=== PATIENT | female | born 1935 | race Caucasian/White ===

== ENCOUNTER → 2016-11-26 | Outpatient (CLI) | payer BC ==
[~2016-11-26] MED LIST: ATOR-22 PO; BENZ100C84 PO; CLTP PO; DLN100 PO; IBUP-1050 PO; LEVE500T PO; LEVO50TA PO; METF-384 PO; MULT-506 PO; NAPR-201 PO; PRLSR20 PO; SPCCR30 TOP
[2016-11-26 12:08] LABS: BASO % 0.5 %; BASO ABS # 0.03 K/uL (0-0.2); COMPLETE YES; EOS % 1.7 %; HEMATOCRIT 34.7 % (37-47); IG% 0.3 %; LYMPH % 36.3 %; LYMPH ABS # 2.39 K/uL (1.2-3.4); MEAN CELL VOLUME 98.3 fL (80-100); MEAN CORPUSCULAR HGB CONC 32.6 g/dl (32-36); MEAN PLATELET VOLUME 9.6 fL (7.4-10.4); MONO % 7.4 %; NEUT % 53.8 %; PLATELET COUNT 228 K/uL (130-400); RED BLOOD COUNT 3.53 M/uL (4.2-5.4); WHITE BLOOD COUNT 6.58 K/uL (4.8-10.8)
[2016-11-26 12:28] LABS: ESTIMATED AVERAGE GLUCOSE 128 mg/dl; HA1C FLAG Normal (Normal)
[2016-11-26 12:38] LABS: BLOOD UREA NITROGEN 16 mg/dl (7-18); BUN/CREATININE RATIO 24.4 (10-20); CALCIUM 8.8 mg/dl (8.5-10.1); CARBON DIOXIDE 28 mmol/L (21-32); CHLORIDE 107 mmol/L (98-107); CREATININE 0.65 mg/dl (0.60-1.20); GLUCOSE 110 mg/dl (70-99); POTASSIUM 4.6 mmol/L (3.5-5.1); SODIUM 141 mmol/L (136-145)
[2016-11-26 12:49] LABS: FERRITIN 45.1 ng/ml (8.0-388.0); THYROID STIMULATING HORMONE 0.497 uIu/ml (0.300-4.500)
--- NOTE | 2016-12-02 09:31 | CODING QUERY MEDICAL NECESSITY ---
SUPPORTING DIAGNOSIS NEEDED A supporting diagnosis is required for the test/procedure performed on this patient in order for us to be reimbursed by the patient's insurance. Please provide a supporting diagnosis for the following test/procedure listed below next to the test name along with your signature. *If there is no additional diagnosis for this patient that would support the following test/procedure please document that below next to the test/procedure. Test(s)/Procedure(s) that require a supporting diagnosis: DOS 11/26 * Vitamin B12 DIAGNOSIS: Provider Signature: Date: Thank you Ivanna Kilgore Health Information Management Once completed, please kindly fax back to [phone] For questions please call [phone]
== END | disposition home or self-care (01) ==
LOC: C.LABBFT 09:32
PROVIDERS: ATTEND Internal Medicine Geriatric Medicine
DX: E11.9 Type 2 diabetes mellitus without complications (principal); M81.0 Age-related osteoporosis without current pathological fracture; E78.5 Hyperlipidemia, unspecified; E55.9 Vitamin D deficiency, unspecified; G40.909 Epilepsy, unspecified, not intractable, without status epilepticus; R63.4 Abnormal weight loss; D64.9 Anemia, unspecified

== ENCOUNTER → 2017-02-18 | Outpatient (CLI) | payer BC ==
[2017-02-18 12:12] LABS: BASO % 0.3 %; BASO ABS # 0.02 K/uL (0-0.2); COMPLETE YES; HEMATOCRIT 37.5 % (37-47); IG% 0.2 %; LYMPH % 35.2 %; LYMPH ABS # 2.12 K/uL (1.2-3.4); MEAN CELL VOLUME 99.2 fL (80-100); MEAN CORPUSCULAR HEMOGLOBIN 32.3 pg (25-34); MEAN CORPUSCULAR HGB CONC 32.5 g/dl (32-36); MEAN PLATELET VOLUME 9.9 fL (7.4-10.4); MONO % 7.3 %; PLATELET COUNT 245 K/uL (130-400); RED BLOOD COUNT 3.78 M/uL (4.2-5.4); WHITE BLOOD COUNT 6.02 K/uL (4.8-10.8)
[2017-02-18 12:27] LABS: BLOOD UREA NITROGEN 12 mg/dl (7-18); BUN/CREATININE RATIO 15.8 (10-20); CALCIUM 9.1 mg/dl (8.5-10.1); CARBON DIOXIDE 27 mmol/L (21-32); CHLORIDE 106 mmol/L (98-107); CREATININE 0.73 mg/dl (0.60-1.20); GLUCOSE 118 mg/dl (70-99); POTASSIUM 4.5 mmol/L (3.5-5.1); SODIUM 140 mmol/L (136-145)
--- NOTE | 2017-03-04 07:58 | CODING QUERY MEDICAL NECESSITY ---
CQSUPPORTING DIAGNOSIS NEEDED A supporting diagnosis is required for the test/procedure performed on this patient in order for us to be reimbursed by the patient's insurance. Please provide a supporting diagnosis for the following test/procedure listed below next to the test name along with your signature. *If there is no additional diagnosis for this patient that would support the following test/procedure please document that below next to the test/procedure. Test(s)/Procedure(s) that require a supporting diagnosis: DOS 02/18/17 VITAIN B12 TEST Provider Signature: Date: Thank you Merari Yeung Health Information Management Once completed, please kindly fax back to [phone] For questions please call [phone]
== END | disposition home or self-care (01) ==
LOC: C.LABBFT 08:30
PROVIDERS: ATTEND Internal Medicine Geriatric Medicine
DX: E03.9 Hypothyroidism, unspecified (principal); E11.9 Type 2 diabetes mellitus without complications; M81.0 Age-related osteoporosis without current pathological fracture; E78.5 Hyperlipidemia, unspecified; D64.9 Anemia, unspecified

== ENCOUNTER → 2017-06-30 | Outpatient (CLI) | payer BC ==
[2017-06-30 13:42] LABS: BASO % 0.6 %; BASO ABS # 0.04 K/uL (0-0.2); COMPLETE YES; EOS % 2.5 %; HEMATOCRIT 39.3 % (37-47); IG% 0.3 %; LYMPH % 40.4 %; LYMPH ABS # 2.87 K/uL (1.2-3.4); MEAN CELL VOLUME 98.5 fL (80-100); MEAN CORPUSCULAR HEMOGLOBIN 31.3 pg (25-34); MEAN CORPUSCULAR HGB CONC 31.8 g/dl (32-36); MEAN PLATELET VOLUME 10.1 fL (7.4-10.4); MONO % 8.4 %; NEUT % 47.8 %; PLATELET COUNT 261 K/uL (130-400); RED BLOOD COUNT 3.99 M/uL (4.2-5.4); WHITE BLOOD COUNT 7.11 K/uL (4.8-10.8)
[2017-06-30 13:58] LABS: ESTIMATED AVERAGE GLUCOSE 128 mg/dl; HA1C FLAG Normal (Normal)
[2017-06-30 14:25] LABS: ALT/SGPT 20 U/L (12-78); AST/SGOT 12 U/L (15-37); BLOOD UREA NITROGEN 15 mg/dl (7-18); BUN/CREATININE RATIO 19.8 (10-20); CALCIUM 8.7 mg/dl (8.5-10.1); CARBON DIOXIDE 26 mmol/L (21-32); CHLORIDE 103 mmol/L (98-107); CREATININE 0.74 mg/dl (0.60-1.20); GLUCOSE 90 mg/dl (70-99); POTASSIUM 4.7 mmol/L (3.5-5.1); SODIUM 139 mmol/L (136-145)
[2017-06-30 14:35] LABS: ALB/GLOB RATIO 1.1 (0.9-2)
[2017-06-30 14:36] LABS: ALKALINE PHOSPHATASE 101 U/L (45-117); CHOLESTEROL 194 mg/dl (0-200); CHOLESTEROL/HDL RATIO 1.9; HDL CHOLESTEROL 103 mg/dl; LDL CHOLESTEROL CALCULATED 73 mg/dl; THYROID STIMULATING HORMONE 0.575 uIu/ml (0.300-4.500); TRIGLYCERIDES 88 mg/dl (0-150); VERY LOW DENSITY LIPOPROT CALC 18 mg/dl
== END | disposition home or self-care (01) ==
LOC: C.LABBC 11:32
PROVIDERS: ATTEND Internal Medicine Geriatric Medicine
DX: M19.90 Unspecified osteoarthritis, unspecified site (principal); E03.9 Hypothyroidism, unspecified; E11.9 Type 2 diabetes mellitus without complications; M81.0 Age-related osteoporosis without current pathological fracture; E78.5 Hyperlipidemia, unspecified; D64.9 Anemia, unspecified

== ENCOUNTER → 2017-09-01 | Outpatient (CLI) | payer BC | END | disposition home or self-care (01) | LOC: C.LABBFT 09:25 | PROVIDERS: ATTEND Psychiatry & Neurology Neurology | DX: G40.909 Epilepsy, unspecified, not intractable, without status epilepticus (principal) ==

== ENCOUNTER → 2017-11-17 | Outpatient (CLI) | payer BC | END | disposition home or self-care (01) | LOC: C.MAMM 13:02 | PROVIDERS: ATTEND Internal Medicine Geriatric Medicine | DX: M81.0 Age-related osteoporosis without current pathological fracture (principal); M85.89 Other specified disorders of bone density and structure, multiple sites ==

== ENCOUNTER 2019-03-05 15:55 | Inpatient (IN) ==
[2019-03-05] MEDS ORDERED: ONDANSETRON INJ 2 MG/ML 2 ML VIAL IV STA (16:15)
[2019-03-05] MEDS ORDERED: SODIUM CHLORIDE 0.9% 500 ML IV ONE (16:15)
[2019-03-05] MEDS ORDERED: FAMOTIDINE 20MG IV PUSH 20 MG/5 ML SYR IV STA (16:15)
--- NOTE | 2019-03-05 16:41 | XRay Report ---
XR chest 1V portable HISTORY: 83 years-old Female Chest Pain acute atypical chest pain COMPARISON: Chest radiograph 06/29/2016 TECHNIQUE: Portable AP view of the chest FINDINGS: Patient is slightly rotated. Cardiac silhouette is enlarged, unchanged. Calcification of the thoracic aortic arch. No pneumothorax, large pleural effusion or overt pulmonary edema. Mild unchanged 1 thin g of the costophrenic angles. Linear subsegmental bibasilar and right midlung opacities. Degenerative changes of the shoulders and spine. IMPRESSION: 1. Linear subsegmental bibasilar and right midlung opacities suggest atelectasis. 2. Cardiomegaly. The above report was generated using voice recognition software. It may contain grammatical, syntax o r spelling errors. Electronically signed by: Ramos Cortez M.D. 03/05/2019 4:39 PM
[2019-03-05 17:03] LABS: Basophils # (auto) 0.03 K/uL (0-0.2); Basophils % (auto) 0.5 %; Eosinophils # (auto) 0.23 K/uL (0-0.5); Eosinophils % (auto) 3.6 %; Hematocrit (blood only) 35.7 % (37-47); Hemoglobin 11.8 g/dL (12.0-16.0); Immature Granulocytes # (auto) 0.01 K/uL (0.00-0.02); Immature Granulocytes % (auto) 0.2 %; Lymphocytes # (auto) 2.02 K/uL (1.2-3.4); Lymphocytes % (auto) 31.8 %; Mean Corpuscular Hgb Conc 33.1 g/dL (32-36); Mean Corpuscular Volume 97.3 fL (80-100); Mean Platelet Volume 9.6 fL (7.4-10.4); Monocytes # (auto) 0.61 K/uL (0.11-0.59); Monocytes % (auto) 9.6 %; Neutrophils # (auto) 3.46 K/uL (1.4-6.5); Neutrophils % (auto) 54.3 %; Platelet Count 227 K/uL (130-400); RDW Coefficient of Variation 14.1 % (11.5-14.5); RDW Standard Deviation 50.2 fL (36.4-46.3); Red Blood Count 3.67 M/uL (4.2-5.4); White Blood Count 6.36 K/uL (4.8-10.8)
[2019-03-05 17:27] LABS: Alanine Aminotransferase 22 U/L (12-78); Albumin Globulin Ratio 1.1 (0.9-2); Albumin Level 3.8 gm/dl (3.4-5.0); Alkaline Phosphatase 91 U/L (45-117); Aspartate Aminotransferase 20 U/L (15-37); BUN Creatinine Ratio 11.1 (10-20); Bilirubin,Total 0.2 mg/dl (0.2-1); Blood Urea Nitrogen 8 mg/dl (7-18); Calcium 8.6 mg/dl (8.5-10.1); Carbon Dioxide 26 mmol/L (21-32); Chloride 108 mmol/L (98-107); Creatinine Clr Calc Pharmacy 57.7 ml/min; Est GFR (African American) 92.6; Est GFR (Non-African American) 79.9; Globulin 3.4 gm/dl (2.5-4.0); Glucose 131 mg/dl (70-99); Phosphorus 3.8 mg/dl (2.5-4.9); Potassium 4.6 mmol/L (3.5-5.1); Sodium 139 mmol/L (136-145); Total Protein 7.2 gm/dl (6.4-8.2); Troponin I < 0.015 ng/ml (0-0.045)
[2019-03-05 18:26] LABS: Appearance Urine Clear (Clear); Bilirubin Urine Negative (Negative); Blood Urine Negative (Negative); Color Urine Yellow; Glucose Urine UA Negative (Negative); Ketones Urine Negative (Negative); Leukocyte Esterase Urine Negative (Negative); Nitrite Urine Negative (Negative); Protein Urine Negative (Negative); Specific Gravity Urine 1.014 (1.000-1.030); Urobilinogen Urine Negative (Negative)
--- NOTE | 2019-03-05 21:25 | Emergency Department Note ---
Entered by Latosha Cm acting as a scribe for León Durand MD History of Present Illness General Chief complaint: Nausea Stated complaint: DIZZY,NAUSEA Time Seen by Provider: 03/05/19 16:10 Source: patient History of Present Illness Onset (ago): hour(s) (several) Location: abdomen Pain Consistency: + other (persistent) Quality: + other (nausea) Associated symptoms: + other (positive feeling bloated; positive feeling "knocked out" after taking medication) The patient is a 83 year old female who presents to the Emergency Room with complaints of persistent nausea that began several hours prior to arrival. The patient states that she has been able to eat during this time, but states that she feels bloated. She states that she has a seizure disorder and states that recently her medication for this has been "knocking her out". The patient states that she had a normal bowel movement yesterday. Home Medications Home Medications Medication Instructions Recorded Confirmed Type atorvastatin 20 mg tablet 20 mg PO DAILY #90 tab 01/29/19 03/05/19 History calcium citrate 315 mg-vitamin D3 2 tab PO DAILY tab 01/29/19 03/05/19 History 250 unit tablet cyanocobalamin (vit B-12) 1,000 1,000 mcg PO DAILY #90 tab 01/29/19 03/05/19 History mcg tablet levothyroxine 50 mcg tablet 50 mcg PO QAM #90 tab 01/29/19 03/05/19 History metformin 500 mg tablet 500 mg PO BID #180 tab 01/29/19 03/05/19 History naphazoline 0.012 % eye drops 1 drops OPHTHALMIC (EYE) DAILY PRN 01/29/19 03/05/19 History naproxen 375 mg tablet 375 mg PO BID #180 tab 01/29/19 03/05/19 History cholecalciferol (vitamin D3) 2,000 unit PO QAM 03/05/19 03/05/19 History [Vitamin D3] docusate sodium 100 mg PO HS PRN 03/05/19 03/05/19 History econazole 1 applic TOPICAL BID 03/05/19 03/05/19 History levetiracetam 750 mg PO BID 03/05/19 03/05/19 History multivitamin 1 tab PO QAM 03/05/19 03/05/19 History omeprazole 20 mg PO QAM 03/05/19 03/05/19 History phenytoin sodium extended 200 mg PO BID 03/05/19 03/05/19 History Allergies Allergy/AdvReac Type Severity Reaction Status Date / Time No Known Allergies Allergy Verified 02/23/19 16:04 Past Med/Surg History Medical History Vitamin D deficiency (Acute) Shingles (Acute) Seizure disorder (Acute) Osteoporosis (Acute) Osteoarthritis (Acute) Hypothyroidism (Acute) Gastroesophageal reflux disease (Acute) Dyslipidemia (Acute) Diabetes mellitus (Acute) Asthma (Acute) Anemia (Acute) Surgical History History of ankle surgery History of colonoscopy Family History Father Hypertension Mother Myocardial infarction Diabetes Brother Lung disease Social History Preferred Language: Tanzanian Communication Ability: Effective Dairy Clerk Required: Yes Beliefs That Will Affect Care: None Current Living Situation: Family Current Living Situation Comment: home with son Other Information That Helps Us Care for You: No Feels Safe at Home: Yes Safety Concerns: Feels Safe At This Time Smoking Status: Never smoker Hx Alcohol Use: No Hx Substance Use: No Review of Systems See HPI for pertinent positives & negatives. and A total of 10 systems reviewed and were otherwise negative Physical Exam Vital Signs Vital Signs - 24 hr 03/05/19 16:01 03/05/19 17:21 03/05/19 18:13 Temperature 37.1 C Temperature Source Oral Sepsis Recent Fever Within 48 Hours No Sepsis New/Unexplained Change in Mental Status No Sepsis Action Taken by Nursing No Action Required Pulse Rate 80 Pulse Rate [Apical] 79 84 Respiratory Rate 20 18 20 Respiratory Effort / Characteristics Non-Labored Non-Labored Spontaneous Respiratory Depth Normal Normal Respiratory Pattern Regular Blood Pressure 150/68 H Blood Pressure [Left Arm] 136/61 132/97 Blood Pressure Mean 95 Blood Pressure Mean [Left Arm] 86 108 Blood Pressure Position [Left Arm] Sitting Pulse Oximetry 97 96 95 Oxygen Delivery Method Room Air Room Air Room Air 03/05/19 20:21 03/05/19 22:59 Temperature Temperature Source Sepsis Recent Fever Within 48 Hours Sepsis New/Unexplained Change in Mental Status Sepsis Action Taken by Nursing Pulse Rate Pulse Rate [Apical] 78 80 Respiratory Rate 18 18 Respiratory Effort / Characteristics Respiratory Depth Respiratory Pattern Blood Pressure Blood Pressure [Left Arm] 136/84 119/69 Blood Pressure Mean Blood Pressure Mean [Left Arm] 101 85 Blood Pressure Position [Left Arm] Pulse Oximetry 93 94 Oxygen Delivery Method Room Air Room Air GENERAL: BMI of 36.6. Awake, alert, fatigued-appearing, in no distress HENT: Normocephalic, atraumatic. Oropharynx with dry mucous membranes and otherwise unremarkable. EYES: Normal conjunctiva. Sclera non-icteric. EOMI. No nystamgus. PEARRL. NECK: Supple. No nuchal rigidity. FROM. No JVD. RESPIRATORY: CTAB. CARDIAC: Regular rate, normal rhythm. Extremities warm and well perfused. Pulses equal. ABDOMEN: Soft, non-distended. Mild epigastric discomfort without discrete tenderness. No rebound or guarding. No masses. RECTAL: Deferred. MUSCULOSKELETAL: Chest examination reveals no tenderness. The back is symmetrical on inspection without obvious abnormality. There is no CVA tenderness to palpation. No joint edema. LOWER EXTREMITIES: Calves are equal size bilaterally and non-tender. No edema. No discoloration. NEURO: Normal sensorium. No sensory or motor deficits noted. Intact finger to nose. 5/5 strength and SILT x 4 extremities. SKIN: No rash or jaundice noted. Course 1612: Past medical records reviewed. The patient was evaluated in room C10. A complete history and physical exam was performed. 2219: [facility] evaluation. Consultations Consultation #1: [facility] for further evaluation. Time: 22:19 Administered Medications Acetaminophen (Tylenol) 650 mg PO Q4H PRN PRN Reason: Pain or Fever Stop: 04/05/19 01:32 Last Admin: 03/06/19 02:14 Dose: 650 mg Documented by: [id number] Levetiracetam (Keppra) 750 mg PO BID ARIES Stop: 04/05/19 01:32 Last Admin: 03/06/19 02:06 Dose: 750 mg Documented by: [id number] Discontinued Medications Famotidine (Pepcid 20mg Iv Push) 20 mg in 5 mls @ 2.5 mls/min IV NOW STA Stop: 03/05/19 16:16 Last Admin: 03/05/19 16:57 Dose: 2.5 mls/min Documented by: [id number] Sodium Chloride (Nss) 500 mls @ 999 mls/hr IV .Q31M ONE Stop: 03/05/19 16:45 Last Infusion: 03/05/19 17:47 Dose: 0 mls/hr Documented by: [id number] Admin: 03/05/19 16:57 Dose: 999 mls/hr Documented by: [id number] Ondansetron HCl (Zofran) 4 mg IV NOW STA Stop: 03/05/19 16:16 Last Admin: 03/05/19 16:57 Dose: 4 mg Documented by: [id number] Medical Decision Making Differential Diagnosis Differential diagnosis: Etiologies such as gastroenteritis, food borne illness, infections, appendicitis, diverticulitis, inflammatory bowel disease, obstruction, GI bleed, biliary pathology, as well as others were entertained. Medical Records Attestation: I reviewed the patient's medical records. Home Medications Current Medication List: was personally reviewed by me Laboratory Data Attestation: I reviewed the patient's lab results. Result diagrams: 03/05/19 16:32 03/05/19 16:32 Lab Results 03/05/19 03/05/19 03/05/19 Range/Units 16:32 16:32 16:32 WBC 6.36 (4.8-10.8) K/uL RBC 3.67 L (4.2-5.4) M/uL Hgb 11.8 L (12.0-16.0) g/dL Hct 35.7 L (37-47) % MCV 97.3 (80-100) fL MCH 32.2 (25-34) pg MCHC 33.1 (32-36) g/dL RDW Std Deviation 50.2 H (36.4-46.3) fL RDW Coeff of Ana 14.1 (11.5-14.5) % Plt Count 227 (130-400) K/uL MPV 9.6 (7.4-10.4) fL Immature Gran % (Auto) 0.2 % Neut % (Auto) 54.3 % Lymph % (Auto) 31.8 % Andrews % (Auto) 9.6 % Eos % (Auto) 3.6 % Baso % (Auto) 0.5 % Immature Gran # (Auto) 0.01 (0.00-0.02) K/uL Neut # (Auto) 3.46 (1.4-6.5) K/uL Lymph # (Auto) 2.02 (1.2-3.4) K/uL Andrews # (Auto) 0.61 H (0.11-0.59) K/uL Eos # (Auto) 0.23 (0-0.5) K/uL Baso # (Auto) 0.03 (0-0.2) K/uL Sodium 139 (136-145) mmol/L Potassium 4.6 (3.5-5.1) mmol/L Chloride 108 H (98-107) mmol/L Carbon Dioxide 26 (21-32) mmol/L Anion Gap 5.0 (3-11) BUN 8 (7-18) mg/dl Creatinine 0.71 (0.6-1.2) mg/dl Est Cr Clr Drug Dosing 57.7 ml/min Est GFR ( Amer) 92.6 Est GFR (Non-Af Amer) 79.9 BUN/Creatinine Ratio 11.1 (10-20) Glucose 131 H (70-99) mg/dl Calcium 8.6 (8.5-10.1) mg/dl Phosphorus 3.8 Cancelled (2.5-4.9) mg/dl Magnesium 2.0 Cancelled (1.8-2.4) mg/dl Total Bilirubin 0.2 (0.2-1) mg/dl Direct Bilirubin (0-0.2) mg/dl AST 20 (15-37) U/L ALT 22 (12-78) U/L Alkaline Phosphatase 91 (45-117) U/L Troponin I < 0.015 (0-0.045) ng/ml Total Protein 7.2 (6.4-8.2) gm/dl Albumin 3.8 (3.4-5.0) gm/dl Globulin 3.4 (2.5-4.0) gm/dl Albumin/Globulin Ratio 1.1 (0.9-2) Lipase 213 (73-393) U/L Specimen Hemolysis Urine Color Urine Appearance (Clear) Urine pH (4.5-7.5) Ur Specific [place] (1.000-1.030) Urine Protein (Negative) Urine Glucose (UA) (Negative) Urine Ketones (Negative) Urine Blood (Negative) Urine Nitrite (Negative) Urine Bilirubin (Negative) Urine Urobilinogen (Negative) Ur Leukocyte Esterase (Negative) Phenytoin (10-20) mcg/ml 03/05/19 03/05/19 Range/Units 17:52 18:14 WBC (4.8-10.8) K/uL RBC (4.2-5.4) M/uL Hgb (12.0-16.0) g/dL Hct (37-47) % MCV (80-100) fL MCH (25-34) pg MCHC (32-36) g/dL RDW Std Deviation (36.4-46.3) fL RDW Coeff of Ana (11.5-14.5) % Plt Count (130-400) K/uL MPV (7.4-10.4) fL Immature Gran % (Auto) % Neut % (Auto) % Lymph % (Auto) % Andrews % (Auto) % Eos % (Auto) % Baso % (Auto) % Immature Gran # (Auto) (0.00-0.02) K/uL Neut # (Auto) (1.4-6.5) K/uL Lymph # (Auto) (1.2-3.4) K/uL Andrews # (Auto) (0.11-0.59) K/uL Eos # (Auto) (0-0.5) K/uL Baso # (Auto) (0-0.2) K/uL Sodium (136-145) mmol/L Potassium (3.5-5.1) mmol/L Chloride (98-107) mmol/L Carbon Dioxide (21-32) mmol/L Anion Gap (3-11) BUN (7-18) mg/dl Creatinine (0.6-1.2) mg/dl Est Cr Clr Drug Dosing ml/min Est GFR ( Amer) Est GFR (Non-Af Amer) BUN/Creatinine Ratio (10-20) Glucose (70-99) mg/dl Calcium (8.5-10.1) mg/dl Phosphorus (2.5-4.9) mg/dl Magnesium (1.8-2.4) mg/dl Total Bilirubin (0.2-1) mg/dl Direct Bilirubin (0-0.2) mg/dl AST (15-37) U/L ALT (12-78) U/L Alkaline Phosphatase (45-117) U/L Troponin I (0-0.045) ng/ml Total Protein (6.4-8.2) gm/dl Albumin (3.4-5.0) gm/dl Globulin (2.5-4.0) gm/dl Albumin/Globulin Ratio (0.9-2) Lipase (73-393) U/L Specimen Hemolysis Urine Color Yellow Urine Appearance Clear (Clear) Urine pH 5.0 (4.5-7.5) Ur Specific [place] 1.014 (1.000-1.030) Urine Protein Negative (Negative) Urine Glucose (UA) Negative (Negative) Urine Ketones Negative (Negative) Urine Blood Negative (Negative) Urine Nitrite Negative (Negative) Urine Bilirubin Negative (Negative) Urine Urobilinogen Negative (Negative) Ur Leukocyte Esterase Negative (Negative) Phenytoin 27.7 H* (10-20) mcg/ml Imaging Data Radiologist's Impression: Radiology results as stated below per my review and the radiologist's interpretation: XR chest 1V portable HISTORY: 83 years-old Female Chest Pain acute atypical chest pain COMPARISON: Chest radiograph 06/29/2016 TECHNIQUE: Portable AP view of the chest FINDINGS: Patient is slightly rotated. Cardiac silhouette is enlarged, unchanged. Calcification of the thoracic aortic arch. No pneumothorax, large pleural effusion or overt pulmonary edema. Mild unchanged 1 thing of the costophrenic angles. Linear subsegmental bibasilar and right midlung opacities. Degenerative changes of the shoulders and spine. IMPRESSION: 1. Linear subsegmental bibasilar and right midlung opacities suggest atelectasis. 2. Cardiomegaly. The above report was generated using voice recognition software. It may contain grammatical, syntax or spelling errors. Electronically signed by: Ramos Cortez M.D. 03/05/2019 4:39 PM ECG Data Attestation: I personally reviewed and interpreted this ECG as follows: Indication: nausea Rate (beats per minute): 78 Rhythm: sinus rhythm Findings: + other (LVH; nonspecific T wave abnormalities no overt acute ischemia ) Comparison ECG Date: from (06/29/2016) Change: no significant change Blood Pressure Blood Pressure Findings: Normal blood pressure MDM Narrative The patient is a pleasant 83-year-old woman with a past medical history of seiz ure disorder on Keppra and Dilantin who presents emergency department with nausea and disorientation which began today per hpi. On arrival the patient is in no acute distress, afebrile stable vital signs. On exam patient has mild epigastric discomfort without discrete tenderness. EKG without overt acute ischemia and similar to prior. WBC within normal limits. H/H approximate to prior values. Platelets within normal limits. Chemistry without acidosis. Troponin negative. UA negative for infection. Patient does have a supratherapeutic Dilantin level which likely explains her symptoms of disorientation and nausea. Given the unpredictable half-life/metabolism of Dilantin in the setting of patient's seizure disorder reason to admit admit for further monitoring of her Dilantin level and appropriate reinitiation of her medications. Case was discussed with Dr. Caballero, [facility] hospitalist, who evaluate the patient for admission. Impression & Plan Dilantin toxicity, Nausea, Disoriented Discharge Plan Visit Data *Final* Discharge Date/Time: 03/06/19 01:31 Chief Complaint: Nausea Stated Complaint: DIZZY,NAUSEA ED Provider: León Durand Discharge Problem: Dilantin toxicity, Nausea, Disoriented Patient Disposition: Admitted As Inpatient Discharge Problem: Dilantin toxicity Qualifiers: Encounter type: initial encounter Injury intent: accidental or unintentional Qualified Code(s): T42.0X1A - Poisoning by hydantoin derivatives, accidental (unintentional), initial encounter The scribe's documentation has been prepared under my direction and personally reviewed by me in its entirety. I confirm that the note above accurately reflects all work, treatment, procedures, and medical decision making performed by me.
--- NOTE | 2019-03-05 23:37 | History & Physical Report ---
Date of Service March 05, 2019 Assessment & Plan (1) Dilantin toxicity: Dilantin toxicity/seizure disorder- Dilantin level 27.7, with normal range 10-20. Hold Dilantin dosing tonight, and repeat level in the a.m. Continue Keppra 750 mg p.o. twice daily. Dilantin toxicity likely responsible for nausea, disorientation and vision change. Present on Admission?: Yes (2) Seizure disorder: See above. Present on Admission?: Yes (3) Nausea: Symptomatic treatment with Zofran IV. Present on Admission?: Yes (4) Disoriented: Secondary to Dilantin toxicity, has improved somewhat with hydration in the ED Present on Admission?: Yes (5) Gastroesophageal reflux disease: Omeprazole 20 mg p.o. daily, can be changed to pantoprazole 40 mg daily Present on Admission?: Yes (6) Hypothyroidism: Continue levothyroxine 50 mcg daily. Present on Admission?: Yes (7) Dyslipidemia: Continue atorvastatin 20 mg daily. Present on Admission?: Yes (8) Diabetes mellitus: Hold metformin. Place on Accu-Cheks before meals and at bedtime with NovoLog coverage per scale Present on Admission?: Yes History of Present Illness Chief Complaint: The patient reports to the emergency department with complaint of nausea and feeling that her vision is blurry Primary Care Provider: Francesca Tillman MD The patient is a 83-year-old female with a past medical history including seizure disorder, vitamin D deficiency, hypothyroidism, GERD, dyslipidemia, diabetes mellitus, asthma and anemia who presents to the emergency department with complaint of nausea and blurred vision and somewhat disorientation. She has not been able to eat or drink much over the past 24 hours, but she does feel bloated. She has not had any recent travels or sick exposures. Allergies Allergy/AdvReac Type Severity Reaction Status Date / Time No Known Allergies Allergy Verified 02/23/19 16:04 Home Medications Home Medications Medication Instructions Recorded Confirmed Type atorvastatin 20 mg tablet 20 mg PO DAILY #90 tab 01/29/19 03/05/19 History calcium citrate 315 mg-vitamin D3 2 tab PO DAILY tab 01/29/19 03/05/19 History 250 unit tablet cyanocobalamin (vit B-12) 1,000 1,000 mcg PO DAILY #90 tab 01/29/19 03/05/19 History mcg tablet levothyroxine 50 mcg tablet 50 mcg PO QAM #90 tab 01/29/19 03/05/19 History metformin 500 mg tablet 500 mg PO BID #180 tab 01/29/19 03/05/19 History naphazoline 0.012 % eye drops 1 drops OPHTHALMIC (EYE) DAILY PRN 01/29/19 03/05/19 History naproxen 375 mg tablet 375 mg PO BID #180 tab 01/29/19 03/05/19 History cholecalciferol (vitamin D3) 2,000 unit PO QAM 03/05/19 03/05/19 History [Vitamin D3] docusate sodium 100 mg PO HS PRN 03/05/19 03/05/19 History econazole 1 applic TOPICAL BID 03/05/19 03/05/19 History levetiracetam 750 mg PO BID 03/05/19 03/05/19 History multivitamin 1 tab PO QAM 03/05/19 03/05/19 History omeprazole 20 mg PO QAM 03/05/19 03/05/19 History phenytoin sodium extended 200 mg PO BID 03/05/19 03/05/19 History Past Med/Surg History Medical History Vitamin D deficiency (Acute) Shingles (Acute) Seizure disorder (Acute) Osteoporosis (Acute) Osteoarthritis (Acute) Hypothyroidism (Acute) Gastroesophageal reflux disease (Acute) Dyslipidemia (Acute) Diabetes mellitus (Acute) Asthma (Acute) Anemia (Acute) Surgical History History of ankle surgery History of colonoscopy Family History Father Hypertension Mother Myocardial infarction Diabetes Brother Lung disease Social History Preferred Language: Liberian Communication Ability: Effective Traffic Control Technician Required: Yes Beliefs That Will Affect Care: None Current Living Situation: Family Current Living Situation Comment: home with son Other Information That Helps Us Care for You: No Feels Safe at Home: Yes Safety Concerns: Feels Safe At This Time Smoking Status: Never smoker Hx Alcohol Use: No Hx Substance Use: No Review of Systems Review of Systems: The patient denies chest pain, palpitations, shortness of breath, dyspnea on exertion, cough, lower extremity swelling, sore throat, fevers, chills, sweats, vomiting, diarrhea , constipation, abdominal pain, pelvic pain, blood in urine or stool, dysuria, urinary frequency or urgency, loss of consciousness, rash, abnormal bruising or bleeding, focal or generalized weakness, numbness or tingling in arms or legs, generalized arthralgias or myalgias, back or neck pain, or night sweats. The review of systems is otherwise negative other than for that already noted above, and at least 10 systems have been reviewed. Physical Exam Physical Exam: The patient is awake, alert and oriented 3, normocephalic and atraumatic, lying in bed and in no acute distress. HEENT--PERRL, EOMI, mucous membranes and oropharynx dry. Neck--supple. No JVD. No bruits. Thyroid normal, trachea midline, no adenopathy. Heart--normal S1 and S2. No murmurs, rubs or gallops. Lungs--clear bilaterally, no respiratory distress, no accessory muscle use. Abdomen--normal bowel sounds and soft. Nontender. Nondistended, no hernias or masses, no organomegaly. Extremities--no cyanosis or clubbing. No edema. There are good distal pulses b/l. Dermatologic--normal skin turgor, normal color, no abnormal lymph nodes, no rash. Neurologic--cranial nerves II through XII grossly intact. Rheumatologic--normal range of motion. Psychiatric--normal affect. Results & Data Vital Signs (Past 12 Hours) Vital Signs Temp Pulse Pulse Resp BP BP Pulse Ox 03/05/19 22:59 80 18 119/69 94 03/05/19 20:21 78 18 136/84 93 03/05/19 18:13 84 20 132/97 95 03/05/19 17:21 79 18 136/61 96 03/05/19 16:01 98.8 F 80 20 150/68 H 97 Laboratory Results Laboratory Results WBC 6.36 K/uL (4.8-10.8) 03/05/19 16:32 RBC 3.67 M/uL (4.2-5.4) L 03/05/19 16:32 Hgb 11.8 g/dL (12.0-16.0) L 03/05/19 16:32 Hct 35.7 % (37-47) L 03/05/19 16:32 MCV 97.3 fL (80-100) 03/05/19 16:32 MCH 32.2 pg (25-34) 03/05/19 16:32 MCHC 33.1 g/dL (32-36) 03/05/19 16:32 RDW Std Deviation 50.2 fL (36.4-46.3) H 03/05/19 16:32 RDW Coeff of Ana 14.1 % (11.5-14.5) 03/05/19 16:32 Plt Count 227 K/uL (130-400) 03/05/19 16:32 MPV 9.6 fL (7.4-10.4) 03/05/19 16:32 Immature Gran % (Auto) 0.2 % 03/05/19 16:32 Neut % (Auto) 54.3 % 03/05/19 16:32 Lymph % (Auto) 31.8 % 03/05/19 16:32 [place] % (Auto) 9.6 % 03/05/19 16:32 Eos % (Auto) 3.6 % 03/05/19 16:32 Baso % (Auto) 0.5 % 03/05/19 16:32 Immature Gran # (Auto) 0.01 K/uL (0.00-0.02) 03/05/19 16:32 Neut # (Auto) 3.46 K/uL (1.4-6.5) 03/05/19 16:32 Lymph # (Auto) 2.02 K/uL (1.2-3.4) 03/05/19 16:32 [place] # (Auto) 0.61 K/uL (0.11-0.59) H 03/05/19 16:32 Eos # (Auto) 0.23 K/uL (0-0.5) 03/05/19 16:32 Baso # (Auto) 0.03 K/uL (0-0.2) 03/05/19 16:32 Sodium 139 mmol/L (136-145) 03/05/19 16:32 Potassium 4.6 mmol/L (3.5-5.1) 03/05/19 16:32 Chloride 108 mmol/L (98-107) H 03/05/19 16:32 Carbon Dioxide 26 mmol/L (21-32) 03/05/19 16:32 Anion Gap 5.0 (3-11) 03/05/19 16:32 BUN 8 mg/dl (7-18) 03/05/19 16:32 Creatinine 0.71 mg/dl (0.6-1.2) 03/05/19 16:32 Est Cr Clr Drug Dosing 57.7 ml/min 03/05/19 16:32 Est GFR ( Amer) 92.6 03/05/19 16:32 Est GFR (Non-Af Amer) 79.9 03/05/19 16:32 BUN/Creatinine Ratio 11.1 (10-20) 03/05/19 16:32 Glucose 131 mg/dl (70-99) H 03/05/19 16:32 Calcium 8.6 mg/dl (8.5-10.1) 03/05/19 16:32 Phosphorus 3.8 mg/dl (2.5-4.9) 03/05/19 16:32 Phosphorus Cancelled 03/05/19 16:32 Magnesium 2.0 mg/dl (1.8-2.4) 03/05/19 16:32 Magnesium Cancelled 03/05/19 16:32 Total Bilirubin 0.2 mg/dl (0.2-1) 03/05/19 16:32 Direct Bilirubin mg/dl (0-0.2) 03/05/19 16:32 AST 20 U/L (15-37) 03/05/19 16:32 ALT 22 U/L (12-78) 03/05/19 16:32 Alkaline Phosphatase 91 U/L (45-117) 03/05/19 16:32 Troponin I < 0.015 ng/ml (0-0.045) 03/05/19 16:32 Total Protein 7.2 gm/dl (6.4-8.2) 03/05/19 16:32 Albumin 3.8 gm/dl (3.4-5.0) 03/05/19 16:32 Globulin 3.4 gm/dl (2.5-4.0) 03/05/19 16:32 Albumin/Globulin Ratio 1.1 (0.9-2) 03/05/19 16:32 Lipase 213 U/L (73-393) 03/05/19 16:32 Specimen Hemolysis 03/05/19 16:32 Urine Color Yellow 03/05/19 18:14 Urine Appearance Clear (Clear) 03/05/19 18:14 Urine pH 5.0 (4.5-7.5) 03/05/19 18:14 Ur Specific [place] 1.014 (1.000-1.030) 03/05/19 18:14 Urine Protein Negative (Negative) 03/05/19 18:14 Urine Glucose (UA) Negative (Negative) 03/05/19 18:14 Urine Ketones Negative (Negative) 03/05/19 18:14 Urine Blood Negative (Negative) 03/05/19 18:14 Urine Nitrite Negative (Negative) 03/05/19 18:14 Urine Bilirubin Negative (Negative) 03/05/19 18:14 Urine Urobilinogen Negative (Negative) 03/05/19 18:14 Ur Leukocyte Esterase Negative (Negative) 03/05/19 18:14 Phenytoin 27.7 mcg/ml (10-20) H* 03/05/19 17:52 Diagnostic Findings [place], [place] [phone] XRay Report Patient: CARMEN SINHA LAdceasar Date: 03/05/19 MR#: [id number]: Amber ARANDA Acct ID:[id number]: Date: 1935ty Zip: [place] [address] Age: 83Location: ED Sex: F Room/Bed: Att Phy: Diagnosis: DIZZY,NAUSEA Sulma Phy: Francesca Tillman, MDService Date: 03/05/19 Fam Phy: Interpreting Phy: Alf Cortez Admit Phy: Ordering Phy: León Durand M.D. cc: ~ XR chest 1V portable HISTORY: 83 years-old Female Chest Pain acute atypical chest pain COMPARISON: Chest radiograph 06/29/2016 TECHNIQUE: Portable AP view of the chest FINDINGS: Patient is slightly rotated. Cardiac silhouette is enlarged, unchanged. Calcification of the thoracic aortic arch. No pneumothorax, large pleural effusion or overt pulmonary edema. Mild unchanged 1 thing of the costophrenic angles. Linear subsegmental bibasilar and right midlung opacities. Degenerative changes of the shoulders and spine. IMPRESSION: 1. Linear subsegmental bibasilar and right midlung opacities suggest atelectasis. 2. Cardiomegaly. The above report was generated using voice recognition software. It may contain grammatical, syntax or spelling errors. Electronically signed by: Ramos Cortez M.D. 03/05/2019 4:39 PM Dictated: 03/05/19 1638 Code Status & VTE Plan Code Status Full code VTE Prophylaxis Plan VTE Prophylaxis will be ordered: Yes PG Care Time/CCT Total # of Minutes Spent Total Time Spent with Patient: Total time spent is greater than 50% in coordination of care (as documented) at patient's floor/unit and/or counseling patient: (1) Dilantin toxicity Encounter type: initial encounter Injury intent: accidental or unintentional Qualified Code(s): T42.0X1A - Poisoning by hydantoin derivatives, accidental (unintentional), initial encounter
[2019-03-06] MEDS ORDERED: DEXTROSE 50% 50 ML SYRINGE IV PRN (01:33)
[2019-03-06] MEDS ORDERED: GLUCOSE 40% GEL 15 GM TUBE PO PRN (01:33)
[2019-03-06] MEDS ORDERED: MAGNESIUM HYDROXIDE SUSP 30 ML UDC PO PRN (01:33)
[2019-03-06] MEDS ORDERED: DOCUSATE SODIUM 100 MG CAP PO PRN (01:33)
[2019-03-06] MEDS ORDERED: ALUMINUM/MAGNESIUM SUSP 30 ML UDC PO PRN (01:33)
[2019-03-06] MEDS ORDERED: ONDANSETRON INJ 2 MG/ML 2 ML VIAL IV PRN (01:33)
[2019-03-06] MEDS ORDERED: GLUCAGON FOR INJ 1 MG VIAL SQ PRN (01:33)
[2019-03-06] MEDS ORDERED: GLUCOSE 10 TABS/TUBE PO PRN (01:33)
[2019-03-06] MEDS ORDERED: CARBOHYDRATES FOR HYPOGLYCEMIA PO PRN (01:33)
[2019-03-06] MEDS: levETIRAcetam 250 MG TAB PO SCH ×3 (02:06→20:57)
[2019-03-06] MEDS: ACETAMINOPHEN 325 MG TAB PO PRN ×2 (02:14→07:37)
[2019-03-06 05:15] LABS: Prothrombin Time 10.7 Seconds (9.0-12.0)
[2019-03-06] MEDS: LEVOTHYROXINE SODIUM 50 MCG TABLET PO SCH (05:41)
[2019-03-06] MEDS: MULTIVITAMIN TAB PO SCH (07:32)
[2019-03-06] MEDS: PANTOprazole 40 MG TAB PO SCH (07:32)
[2019-03-06] MEDS: CYANOCOBALAMIN 500 MCG TABLET (VITAMIN B-12) PO SCH (07:32)
[2019-03-06] MEDS: CALCIUM 600MG + VIT D 400 IU TAB PO SCH (07:32)
[2019-03-06] MEDS: CHOLECALCIFEROL 1,000 UNITS TAB PO SCH (07:32)
[2019-03-06] MEDS: ATORVASTATIN 20 MG TAB PO SCH (07:33)
[2019-03-06] MEDS: ECONAZOLE NITRATE 1% CRM 15 GM TUBE TOP SCH ×2 (07:33→20:58)
[2019-03-06] MEDS: INSULIN ASPART 100 UNITS/ML 3 ML PEN SC SCH ×4 (08:19→20:57)
[2019-03-06] MEDS ORDERED: PHENYTOIN SODIUM ER 100 MG CAP PO SCH (09:00)
[2019-03-06] MEDS: HEPARIN SOD 5,000 UNIT/0.5 ML VIAL SQ SCH ×2 (09:43→20:56)
--- NOTE | 2019-03-06 10:12 | Hospitalist Progress Note ---
Date of Service March 06, 2019 Assessment & Plan (1) Dilantin toxicity: Dilantin toxicity/seizure disorder- Dilantin level remains above 20, with normal range 10-20. Will continue to hold Dilantin dosing tonight, and repeat level in the a.m. Continue Keppra 750 mg p.o. twice daily. Dilantin toxicity likely responsible for nausea, disorientation and vision change. It appears weight loss could explain her toxic levels. Honorio carvajal benefit from a lower dose of dilantin at home. Her confusion though appears to have improved. (2) Seizure disorder: See above. (3) Nausea: Symptomatic treatment with Zofran IV. (4) Disoriented: Secondary to Dilantin toxicity, has improved somewhat with hydration in the ED (5) Gastroesophageal reflux disease: Omeprazole 20 mg p.o. daily, can be changed to pantoprazole 40 mg daily (6) Hypothyroidism: Continue levothyroxine 50 mcg daily. (7) Dyslipidemia: Continue atorvastatin 20 mg daily. (8) Diabetes mellitus: Hold metformin. Place on Accu-Cheks before meals and at bedtime with NovoLog coverage per scale Spent 40 minutes in management of patient. Subjective 83 yo female reports she has been compliant with her dose of diltiazem at home. She reports having symptoms of ataxia at home for past 6 months. She reports in the past she refused physical therapy due to having difficulty going to facility. She lives with her son who works in the day and gets home by 2:30pm. She also reports having history of stroke and has intermittent numbness in her right wrist and hand on thumb to 3-4 digit. Patient also reports having lost significant weight in the past few months. Review of Systems Review of Systems: All systems reviewed & are unremarkable except as noted in HPI & below Physical Exam Physical Exam: The patient is awake, alert and oriented 3, normocephalic and atraumatic, lying in bed and in no acute distress. HEENT--PERRL, EOMI, mucous membranes and oropharynx dry. Neck--supple. No JVD. No bruits. Thyroid normal, trachea midline, no adenopathy. Heart--normal S1 and S2. No murmurs, rubs or gallops. Lungs--clear bilaterally, no respiratory distress, no accessory muscle use. Abdomen--normal bowel sounds and soft. Nontender. Nondistended, no hernias or masses, no organomegaly. Extremities--no cyanosis or clubbing. No edema. There are good distal pulses b/l. Dermatologic--normal skin turgor, normal color, no abnormal lymph nodes, no rash. Neurologic--cranial nerves II through XII grossly intact. Rheumatologic--normal range of motion. Psychiatric--normal affect. Results & Data Vital Signs (Past 12 Hours) Vital Signs Temp Pulse Pulse Resp BP Pulse Ox Pulse Ox 03/06/19 07:32 36.5 C 72 18 134/75 95 03/06/19 07:25 62 03/06/19 02:18 84 03/06/19 01:48 36.7 C 83 20 126/62 96 96 03/06/19 01:37 36.7 C 83 20 126/62 96 03/05/19 22:59 80 18 119/69 94 PG Care Time/CCT Total # of Minutes Spent Total Time Spent with Patient: Total time spent is greater than 50% in coordination of care (as documented) at patient's floor/unit and/or counseling patient: (1) Dilantin toxicity Encounter type: initial encounter Injury intent: accidental or unintentional Qualified Code(s): T42.0X1A - Poisoning by hydantoin derivatives, accidental (unintentional), initial encounter
[2019-03-07] MEDS: LEVOTHYROXINE SODIUM 50 MCG TABLET PO SCH (05:53)
[2019-03-07] MEDS: CALCIUM 600MG + VIT D 400 IU TAB PO SCH (08:06)
[2019-03-07] MEDS: CYANOCOBALAMIN 500 MCG TABLET (VITAMIN B-12) PO SCH (08:06)
[2019-03-07] MEDS: PANTOprazole 40 MG TAB PO SCH (08:06)
[2019-03-07] MEDS: CHOLECALCIFEROL 1,000 UNITS TAB PO SCH (08:06)
[2019-03-07] MEDS: ATORVASTATIN 20 MG TAB PO SCH (08:06)
[2019-03-07] MEDS: ECONAZOLE NITRATE 1% CRM 15 GM TUBE TOP SCH ×2 (08:07→20:22)
[2019-03-07] MEDS: HEPARIN SOD 5,000 UNIT/0.5 ML VIAL SQ SCH ×2 (08:07→20:19)
[2019-03-07] MEDS: MULTIVITAMIN TAB PO SCH (08:07)
[2019-03-07] MEDS: levETIRAcetam 250 MG TAB PO SCH ×2 (08:07→20:20)
[2019-03-07 08:33] LABS: BUN Creatinine Ratio 12.9 (10-20); Calcium 8.5 mg/dl (8.5-10.1); Creatinine Clr Calc Pharmacy 58.5 ml/min; Est GFR (African American) 94.2; Est GFR (Non-African American) 81.3; Potassium 4.2 mmol/L (3.5-5.1)
[2019-03-07] MEDS: INSULIN ASPART 100 UNITS/ML 3 ML PEN SC SCH ×4 (08:34→20:20)
--- NOTE | 2019-03-07 09:38 | XRay Report ---
XR chest 2V routine HISTORY: Shortness of breath. COMPARISON: Chest 03/05/2019. FINDINGS: Old mild wedge-shaped compression deformities within the mid to lower thoracic spine. This remains unchanged. No pneumothorax. No pleural effusions. The heart is borderline enlarged. This fredy ins unchanged. Stable retrocardiac linear densities likely representing scarring or atelectasis. The lungs are otherwise clear. IMPRESSION: No significant change compared to the prior study. No acute process. Retrocardiac linear densities pe rsist and favor scarring or atelectasis. No new focal lung consolidations. Electronically signed by: Gray Sauer M.D. 03/07/2019 9:37 AM
[2019-03-07] MEDS ORDERED: LEVALBUTEROL HCL 1.25 MG/3 ML NEB NEB PRN (14:13)
[2019-03-07] MEDS: POLYETHYLENE (MIRALAX) 17 GM PACK PO SCH ×2 (15:34→17:40)
[2019-03-07] MEDS: PHENYTOIN SODIUM ER 100 MG CAP PO SCH (20:18)
[2019-03-07] MEDS ORDERED: OXYCODONE HCL IR 5 MG TAB (IMMEDIATE RELEASE) PO STA (22:14)
--- NOTE | 2019-03-07 22:39 | Hospitalist Progress Note ---
Date of Service March 07, 2019 Assessment & Plan (1) Dilantin toxicity: Dilantin toxicity/seizure disorder- Dilantin level is 19, with normal range 10-20. will resume dilantin at a lower dose 100 in AM and 200 mg in PM. Continue Keppra 750 mg p.o. twice daily. Dilantin toxicity likely responsible for nausea, disorientation and vision change. It appears weight loss could explain her toxic levels. Her confusion though appears to have improved. (2) Seizure disorder: See above. (3) Nausea: Symptomatic treatment with Zofran IV. (4) Disoriented: Secondary to Dilantin toxicity, has improved somewhat with hydration in the ED (5) Gastroesophageal reflux disease: Omeprazole 20 mg p.o. daily, can be changed to pantoprazole 40 mg daily (6) Hypothyroidism: Continue levothyroxine 50 mcg daily. (7) Dyslipidemia: Continue atorvastatin 20 mg daily. (8) Diabetes mellitus: Hold metformin. Place on Accu-Cheks before meals and at bedtime with NovoLog coverage per scale Spent 35 minutes in management of patient. Dispo: Discharge in AM home with son. Subjective Patient reports feeling well but once she was going to be discharged. She reports she still feels somewhat weak. She would like to stay the night. D/W nurse, will have her in bed to chair and will monitor. Review of Systems Review of Systems: The patient denies chest pain, palpitations, shortness of breath, dyspnea on exertion, cough, lower extremity swelling, sore throat, fevers, chills, sweats, vomiting, diarrhea , constipation, abdominal pain, pelvic pain, blood in urine or stool, dysuria, urinary frequency or urgency, loss of consciousness, rash, abnormal bruising or bleeding, focal or generalized weakness, numbness or tingling in arms or legs, generalized arthralgias or myalgias, back or neck pain, or night sweats. The review of systems is otherwise negative other than for that already noted above, and at least 10 systems have been reviewed. Physical Exam Physical Exam: The patient is awake, alert and oriented 3, normocephalic and atraumatic, lying in bed and in no acute distress. HEENT--PERRL, EOMI, mucous membranes and oropharynx dry. Neck--supple. No JVD. No bruits. Thyroid normal, trachea midline, no adenopathy. Heart--normal S1 and S2. No murmurs, rubs or gallops. Lungs--clear bilaterally, no respiratory distress, no accessory muscle use. Abdomen--normal bowel sounds and soft. Nontender. Nondistended, no hernias or masses, no organomegaly. Extremities--no cyanosis or clubbing. No edema. There are good distal pulses b/l. Dermatologic--normal skin turgor, normal color, no abnormal lymph nodes, no rash. Neurologic--cranial nerves II through XII grossly intact. Rheumatologic--normal range of motion. Psychiatric--normal affect. Results & Data Vital Signs (Past 12 Hours) Vital Signs Temp Pulse Pulse Resp BP BP Pulse Ox 03/07/19 19:01 36.8 C 80 20 141/77 H 96 03/07/19 15:22 36.5 C 73 18 115/69 94 03/07/19 13:26 93 03/07/19 11:18 36.7 C 67 18 128/59 L 93 PG Care Time/CCT Total # of Minutes Spent Total Time Spent with Patient: Total time spent is greater than 50% in coordination of care (as documented) at patient's floor/unit and/or counseling patient: (1) Dilantin toxicity Encounter type: initial encounter Injury intent: accidental or unintentional Qualified Code(s): T42.0X1A - Poisoning by hydantoin derivatives, accidental (unintentional), initial encounter
[2019-03-08] MEDS: LEVOTHYROXINE SODIUM 50 MCG TABLET PO SCH (05:37)
[2019-03-08 06:30] LABS: Estimated Average Glucose 134 mg/dl; Hemoglobin A1C 6.3 % (4.5-5.6)
[2019-03-08] MEDS: CYANOCOBALAMIN 500 MCG TABLET (VITAMIN B-12) PO SCH (08:53)
[2019-03-08] MEDS: PANTOprazole 40 MG TAB PO SCH (08:53)
[2019-03-08] MEDS: CHOLECALCIFEROL 1,000 UNITS TAB PO SCH (08:54)
[2019-03-08] MEDS: CALCIUM 600MG + VIT D 400 IU TAB PO SCH (08:54)
[2019-03-08] MEDS: MULTIVITAMIN TAB PO SCH (08:55)
[2019-03-08] MEDS: ATORVASTATIN 20 MG TAB PO SCH (08:55)
[2019-03-08] MEDS: levETIRAcetam 250 MG TAB PO SCH ×2 (08:56→20:28)
[2019-03-08] MEDS: PHENYTOIN SODIUM ER 100 MG CAP PO SCH ×2 (08:57→20:27)
[2019-03-08] MEDS: ECONAZOLE NITRATE 1% CRM 15 GM TUBE TOP SCH ×2 (08:57→20:33)
[2019-03-08] MEDS: HEPARIN SOD 5,000 UNIT/0.5 ML VIAL SQ SCH ×2 (08:58→20:28)
[2019-03-08] MEDS: POLYETHYLENE (MIRALAX) 17 GM PACK PO SCH (08:59)
[2019-03-08] MEDS: INSULIN ASPART 100 UNITS/ML 3 ML PEN SC SCH ×4 (09:00→21:32)
[2019-03-08] MEDS: DICLOFENAC SOD 1% GEL 100 GM TUBE EXT SCH ×3 (14:27→20:26)
--- NOTE | 2019-03-08 21:30 | Hospitalist Progress Note ---
Date of Service March 08, 2019 Assessment & Plan (1) Dilantin toxicity: Resolved. Dilantin toxicity likely was responsible for nausea, disorientation and vision change. Patient reports having lost 30-40 pounds intentionally in the last 1-2 years. Suspect that her dilantin levels antelmo as a result of losing this weight and her dose remaining the same over time. Peak level was 27.7; now 19. Dilantin resumed at 100mg qam and 200mg qpm. Spoke with her primary neurologist, Dr Montero, who agrees with plan. Repeat level in about 5 days recommended. Continue Keppra 750 mg p.o. twice daily. Present on Admission?: Yes (2) Toxic encephalopathy: 2nd to dilantin toxicity - resolved. lingering fatigue may be from the elevated dilantin levels. Present on Admission?: Yes (3) Seizure disorder: See above in "dilantin toxicity." Present on Admission?: Yes (4) Gastroesophageal reflux disease: Cont PPI. Present on Admission?: Yes (5) Hypothyroidism: Continue levothyroxine 50 mcg daily. TSH 08/2018 wnl. (6) Dyslipidemia: Continue atorvastatin 20 mg daily. (7) Diabetes mellitus: Holding metformin. Had hypoglycemia today due to tight correction factor and carb ratio in light of advanced age and well-controlled T2DM. Loosen novolog parameters. Resume metformin at d/c. Present on Admission?: Yes (8) Osteoarthritis: Left knee. Voltaren gel 4 gm QID. Present on Admission?: Yes (9) DVT prophylaxis: heparin 5000 BID cleared by Pt/Ot for home updated son by phone 03/08 d/c home 03/09/19 Subjective patient reports "feeling weak" today and had episode of low glucose at lunch- time after receiving insulin at breakfast for coverage. she also feels tired. but, in comparison to when she first came in, she feels much better. visual issues resolved. Review of Systems Constitutional: no fever Respiratory: no cough and no dyspnea Cardiovascular: no chest pain Gastrointestinal: no abdominal pain Physical Exam Constitutional: well developed and well nourished; no acute distress and no altered mental status Eyes: no nystagmus ENMT: external ear and nose normal, oropharynx normal Respiratory: normal respiratory effort, lungs clear to auscultation Cardiovascular: Rate/Rhythm: regular rate and regular rhythm Heart Sounds: normal S1 and normal S2; no murmur Vessels: posterior tibial pulses present and dorsalis pedis pulses present; no JVD Extremities: no edema Gastrointestinal (Abdomen): normal bowel sounds, soft, nontender, no hepatosplenomegaly Musculoskeletal: left knee OA changes Psychiatric: A+Ox3, euthymic affect Results & Data Vital Signs (Past 12 Hours) Vital Signs Temp Pulse Pulse Resp BP Pulse Ox Pulse Ox 03/08/19 20:10 36.8 C 75 18 114/77 94 03/08/19 16:00 67 03/08/19 15:57 36.6 C 68 18 144/73 H 94 03/08/19 11:55 64 03/08/19 10:42 94 Laboratory Results Laboratory Results - last 24 hr 03/06/19 03/08/19 03/08/19 04:54 07:31 11:58 POC Glucose 122 H 66 L* Estimat Average Glucose 134 Hemoglobin A1c 6.3 H 03/08/19 03/08/19 03/08/19 11:59 12:19 13:09 POC Glucose 70 86 119 H Estimat Average Glucose Hemoglobin A1c 03/08/19 03/08/19 16:13 20:47 POC Glucose 101 H 160 H Estimat Average Glucose Hemoglobin A1c PG Care Time/CCT Total # of Minutes Spent Total Time Spent with Patient: Total time spent is greater than 50% in coordination of care (as documented) at patient's floor/unit and/or counseling patient: (1) Dilantin toxicity Encounter type: initial encounter Injury intent: accidental or unintentional Qualified Code(s): T42.0X1A - Poisoning by hydantoin derivatives, accidental (unintentional), initial encounter (2) Diabetes mellitus Diabetes mellitus type: type 2 Diabetes mellitus mcfp insulin use: without mcfp use Diabetes mellitus complication status: with other specified complication Qualified Code(s): E11.69 - Type 2 diabetes mellitus with other specified complication (3) Hypothyroidism Hypothyroidism type: acquired Qualified Code(s): E03.9 - Hypothyroidism, unspecified (4) Gastroesophageal reflux disease Esophagitis presence: esophagitis presence not specified Qualified Code(s): K21.9 - Gastro-esophageal reflux disease without esophagitis (5) Osteoarthritis Osteoarthritis location: knee Osteoarthritis type: primary Laterality: left Qualified Code(s): M17.12 - Unilateral primary osteoarthritis, left knee
[2019-03-09] MEDS: LEVOTHYROXINE SODIUM 50 MCG TABLET PO SCH (05:38)
[2019-03-09 06:58] LABS: Hematocrit (blood only) 34.5 % (37-47); Hemoglobin 11.4 g/dL (12.0-16.0); Mean Corpuscular Volume 96.6 fL (80-100); Mean Platelet Volume 9.5 fL (7.4-10.4); Platelet Count 202 K/uL (130-400); RDW Coefficient of Variation 14.1 % (11.5-14.5); Red Blood Count 3.57 M/uL (4.2-5.4); White Blood Count 4.99 K/uL (4.8-10.8)
[2019-03-09 07:34] LABS: BUN Creatinine Ratio 20.2 (10-20); Calcium 8.3 mg/dl (8.5-10.1); Creatinine Clr Calc Pharmacy 60.9 ml/min; Est GFR (African American) 95.5; Est GFR (Non-African American) 82.4; Potassium 4.3 mmol/L (3.5-5.1)
[2019-03-09] MEDS: PANTOprazole 40 MG TAB PO SCH (08:14)
[2019-03-09] MEDS: CHOLECALCIFEROL 1,000 UNITS TAB PO SCH (08:14)
[2019-03-09] MEDS: CYANOCOBALAMIN 500 MCG TABLET (VITAMIN B-12) PO SCH (08:14)
[2019-03-09] MEDS: CALCIUM 600MG + VIT D 400 IU TAB PO SCH (08:14)
[2019-03-09] MEDS: MULTIVITAMIN TAB PO SCH (08:15)
[2019-03-09] MEDS: ATORVASTATIN 20 MG TAB PO SCH (08:15)
[2019-03-09] MEDS: INSULIN ASPART 100 UNITS/ML 3 ML PEN SC SCH ×2 (08:21→12:28)
[2019-03-09] MEDS: DICLOFENAC SOD 1% GEL 100 GM TUBE EXT SCH ×2 (08:23→14:20)
[2019-03-09] MEDS: ECONAZOLE NITRATE 1% CRM 15 GM TUBE TOP SCH (08:24)
[2019-03-09] MEDS: HEPARIN SOD 5,000 UNIT/0.5 ML VIAL SQ SCH (08:25)
[2019-03-09] MEDS: POLYETHYLENE (MIRALAX) 17 GM PACK PO SCH (08:25)
[2019-03-09] MEDS: levETIRAcetam 250 MG TAB PO SCH (09:01)
[2019-03-09] MEDS: PHENYTOIN SODIUM ER 100 MG CAP PO SCH (09:01)
[2019-03-09 11:23] VITALS: BP 125/75; TEMP 97.5; O2SAT 95
[2019-03-09 12:36] LABS: Appearance Urine Clear (Clear); Bacteria Urine Automated Negative (Negative); Bilirubin Urine Negative (Negative); Blood Urine Negative (Negative); Color Urine Yellow; Epithelial Cell Urine Auto 20-30 /lpf (0-5); Glucose Urine UA Negative (Negative); Ketones Urine Negative (Negative); Leukocyte Esterase Urine 1+ (Negative); Nitrite Urine Negative (Negative); Protein Urine Negative (Negative); RBC Urine Automated 0-4 /hpf (0-4); Specific Gravity Urine 1.011 (1.000-1.030); Urobilinogen Urine Negative (Negative); pH Urine 6.5 (4.5-7.5)
[2019-03-09 14:13] VITALS: PULSE 67
--- NOTE | 2019-03-11 13:53 | Coding Query ---
CODING QUERY To promote full compliance with coding requirements relating to patient care, provider participation is requested in all cases of medical records coder uncertainty. Please assist us with the question(s) below: Coding Question(s): Patient admitted with nausea, disorientation, and vision changes due to Dilantin toxicity with a peak level of 27.7 and 30-40 pound weight loss within the last 1-2 years. Coders are not allowed to assume whether "toxicity" means poisoning or adverse effect. Please indicate below what you mean by "Dilantin toxicity". Physician's Response(s): ( x ) Dilantin Poisoning, accidental ( ) Dilantin Poisoning, intentional ( ) Adverse effect of Dilantin ( ) Other, please specify Thank you Lulú Patel Principal Diagnosis: "that condition established after study, to be chiefly responsible for occasioning the admission of the patient to the hospital for care." Co-Existing Principal Diagnosis: "when two or more diagnoses equally meet the criteria for principal diagnosis as determined by the circumstances of admission, diagnostic work up, and/or therapy provided, and the Alphabetic Index, Tabular List, or another coding guideline does not provide sequencing direction, any one of the diagnoses may be sequenced first." "When the physician has documented what appears to be a current diagnosis in the body of the record, but has not included the diagnosis in the final diagnostic statement, the physician should be asked whether the diagnosis should be added." (Source [facility] 2 QTR90. p3-4) QUANG
--- NOTE | 2019-03-15 15:11 | Discharge Summary ---
Date of Service date of admission - 03/05/19 date of discharge - 03/09/19 Admission HPI Per Admitting Provider The patient is a 83-year-old female with a past medical history including seizure disorder, vitamin D deficiency, hypothyroidism, GERD, dyslipidemia, diabetes mellitus, asthma and anemia who presents to the emergency department with complaint of nausea and blurred vision and somewhat disorientation. She has not been able to eat or drink much over the past 24 hours. She has not had any recent travels or sick exposures. Dilantin level was elevated at time of admission. Principal Diagnosis dilantin toxicity Discharge Exam Constitutional well developed and well nourished; no acute distress and no altered mental status Eyes no nystagmus ENMT external ear and nose normal, oropharynx normal Respiratory normal respiratory effort, lungs clear to auscultation Cardiovascular Rate/Rhythm: regular rate and regular rhythm Heart Sounds: normal S1 and normal S2; no murmur Vessels: posterior tibial pulses present and dorsalis pedis pulses present; no JVD Extremities: no edema Gastrointestinal (Abdomen) normal bowel sounds, soft, nontender, no hepatosplenomegaly Neurologic deep tendon reflexes 2+ bilaterally; no focal motor deficits Psychiatric A+Ox3, euthymic affect Discharge Data Allergies Allergy/AdvReac Type Severity Reaction Status Date / Time No Known Allergies Allergy Verified 02/23/19 16:04 Consultations PT, OT Hospital Course (1) Dilantin toxicity: Unintentional. Dilantin toxicity likely was responsible for nausea, disorientation and vision change at presentation. Peak dilantin level was 27.7. Improved to 19 prior to discharge with holding the dilantin. Patient reports having lost 30-40 pounds intentionally in the last 1-2 years. Suspect that her dilantin levels antelmo as a result of losing this weight and her dose remaining the same over time. Dilantin was ultimately resumed at 100mg qam and 200mg qpm. Spoke with her primary neurologist, Dr Reji Montero, who agreed with this plan. Repeat level in about 5 days post-discharge recommended. (2) Toxic encephalopathy: 2nd to dilantin toxicity - resolved. (3) Seizure disorder: See above in "dilantin toxicity." She will also remain on twice daily keppra. (4) Gastroesophageal reflux disease: Cont PPI. (5) Hypothyroidism: Continue levothyroxine 50 mcg daily. TSH 08/2018 wnl. (6) Dyslipidemia: Continue atorvastatin 20 mg daily. (7) Diabetes mellitus: Hemoglobin a1c was 6.2%. Resumed metformin at d/c. (8) Osteoarthritis: Left knee. Voltaren gel 4 gm QID. Total Time Total Time Spent Total Time Spent (In Minutes): 35 Total Time Includes: Examination of the Patient, Discharge Planning, Medication Reconciliation and Communication With Other Providers Discharge Plan Discharge Items Patient Disposition: Home - Self-Care Reason For Visit: DILANTIN TOXICITY Discharge Diagnosis: Dilantin Toxicity Discharge Goals: Diagnostic testing Activity: Resume your previous activity Non-emergency contact: Primary Care Provider and Neurologist Call non-emergency contact if: you have any medication questions, your symptoms worsen and your temperature is above 100.5 Follow-up/Referrals: Reji Montero MD [Physician] - 03/19/19 11:00 am (Please, follow up at [facility] Office with Dr. Montero on FridayApril 19 at 11:00 am. *If you need to change this appointment, call the office at [phone].) Francesca Tillman MD [Primary Care Provider] - 03/12/19 1:45 pm (Please, follow up at Dr. Tillman's office with her associate, Dr. Weiss, on FridayMarch 12 at 1:45 pm. *If you need to change this appointment, call their office at [phone].) Diet: Carb Consistent or DM2 Addtl Provider Instructions: You were admitted and treated for dilantin toxicity. This is when there is too much dilantin in your body. The dilantin level likely became high because of your weight loss in the last 12-18 months. With simply holding the dilantin your dilantin levels returned to normal range. Your symptoms (fatigue, disorientation, etc) all resolved as the dilantin toxicity improved. Recommendations - 1. LOWER your dilantin to the following - * 100mg every morning * 200mg every evening 2. please HOLD your naprosyn (naproxen) anti-inflammatory. In its place please use the voltaren gel; apply 4 grams to either knee up to 4 times a day for pain. 3. please have your dilantin level checked on GILA AM, March 12, between 8 and 9 o'clock. This can be checked at the [facility] office. Once your lab test is complete you can take your morning dilantin (in other words, do not take your morning dilantin capsule before the blood draw). Take the lab slip with you to the lab on Friday. Follow-up -- see separate section. Return to [facility] if -- * you have worsening fatigue, lethargy, disorientation, etc * you have fever over 100.5 degrees * any other concerns Prescriptions: New levalbuterol tartrate 45 mcg/actuation HFA aerosol inhaler 1 puffs INH Q6H PRN (Reason: shortness of breath) Qty: 15 RF: 0 diclofenac sodium [Voltaren] 1 % Gel 4 applic EXT QID Qty: 1 RF: 0 Continued calcium citrate-vitamin D3 315 mg- 250 unit tablet 2 tab PO DAILY RF: 0 naphazoline 0.012 % drops 1 drops ophthalmic (eye) DAILY PRN (Reason: Dry/Funny Feeling) RF: 0 cyanocobalamin (vitamin B-12) 1,000 mcg tablet 1,000 mcg PO DAILY Qty: 90 RF: 0 levothyroxine 50 mcg tablet 50 mcg PO QAM Qty: 90 RF: 0 atorvastatin 20 mg tablet 20 mg PO DAILY Qty: 90 RF: 0 metformin 500 mg tablet 500 mg PO BID Qty: 180 RF: 0 multivitamin Tablet 1 tab PO QAM RF: 0 econazole 1 % Cream 1 applic TOPICAL BID RF: 0 docusate sodium 100 mg Capsule 100 mg PO HS PRN (Reason: Constipation) RF: 0 levetiracetam 750 mg tablet 750 mg PO BID RF: 0 omeprazole 20 mg Tablet,Delayed Release (Dr/Ec) 20 mg PO QAM RF: 0 cholecalciferol (vitamin D3) [Vitamin D3] 2,000 unit Tablet 2,000 unit PO QAM RF: 0 Changed phenytoin sodium extended 100 mg capsule 100 mg PO UD Qty: 90 RF: 3 Discontinued naproxen 375 mg tablet 375 mg PO BID Qty: 180 RF: 0 Stand-Alone Forms: [facility] Discharge Orders: Discharge Order (Routine); Ordered 03/09/19 Ordered By: Jonathan Zacarias Admission Data Admit Date/Time: 03/06/19 23:01 Attending Provider: Jonathan Zacarias Admit Provider: Shady Eastman Primary Care Provider: Francesca Tillman Other Providers: Shady Eastman Service: Telemetry Medical Other Interventions: Discharge Summary Assessment (RN) Last Done: 03/09/19 14:12 Pending Studies at Discharge: No DC Date/Time DO NOT enter until pt leaves facility: 03/09/19 14:52
== END 2019-03-09 14:52 | disposition home or self-care (01) | DRG 917 ==
LOC: 2N 15:55 → ED 15:55 → SUATTDRO 23:37 → 2N 03-06 01:31 → SUATTDRO 03-06 23:01
DX: Z79.84 Long term (current) use of oral hypoglycemic drugs; E11.9 Type 2 diabetes mellitus without complications; E78.5 Hyperlipidemia, unspecified; Z79.899 Other long term (current) drug therapy; E03.9 Hypothyroidism, unspecified; Z79.1 Long term (current) use of non-steroidal anti-inflammatories (NSAID); R63.4 Abnormal weight loss; G40.909 Epilepsy, unspecified, not intractable, without status epilepticus; G92 Toxic encephalopathy; E55.9 Vitamin D deficiency, unspecified; R11.0 Nausea; K21.9 Gastro-esophageal reflux disease without esophagitis; T42.0X1A Poisoning by hydantoin derivatives, accidental (unintentional), initial encounter

== ENCOUNTER 2019-11-30 15:34 | Inpatient (IN) ==
[2019-11-30] MEDS ORDERED: RAPID SEQUENCE INDUCTION BAG ONE ×2 (15:42→15:45)
[2019-11-30] MEDS ORDERED: SODIUM CHLORIDE 0.9% IV STA (15:53)
[2019-11-30] MEDS ORDERED: LEVETIRACETAM IV STA (15:53)
[2019-11-30] MEDS ORDERED: SODIUM CHLORIDE 0.9% 1000ML 1,000 ML IV ONE (15:58)
[2019-11-30 16:00] LABS: Basophils # (auto) 0.02 K/uL (0-0.2); Basophils % (auto) 0.2 %; Eosinophils # (auto) 0.15 K/uL (0-0.5); Eosinophils % (auto) 1.4 %; Hemoglobin 12.6 g/dL (12.0-16.0); Immature Granulocytes # (auto) 0.04 K/uL (0.00-0.02); Immature Granulocytes % (auto) 0.4 %; Lymphocytes # (auto) 4.17 K/uL (1.2-3.4); Lymphocytes % (auto) 37.5 %; Mean Corpuscular Hemoglobin 31.3 pg (25-34); Mean Corpuscular Hgb Conc 32.3 g/dL (32-36); Mean Platelet Volume 9.3 fL (7.4-10.4); Monocytes # (auto) 1.07 K/uL (0.11-0.59); Monocytes % (auto) 9.6 %; Neutrophils # (auto) 5.66 K/uL (1.4-6.5); Neutrophils % (auto) 50.9 %; Platelet Count 331 K/uL (130-400); RDW Coefficient of Variation 13.3 % (11.5-14.5); RDW Standard Deviation 47.7 fL (36.4-46.3); Red Blood Count 4.02 M/uL (4.2-5.4); White Blood Count 11.11 K/uL (4.8-10.8)
[2019-11-30] MEDS ORDERED: STAT IV Infusion **Titration per Protocol STA (16:04)
[2019-11-30 16:10] LABS: iSTAT Creatinine 0.7 mg/dl (0.6-1.3); iSTAT Hemoglobin 13.6 g/dl (12.0-16.0); iSTAT Ionized Calcium 1.19 mmol/l (1.12-1.32); iSTAT Potassium 3.8 mmol/L (3.3-5.0)
[2019-11-30 16:11] LABS: Partial Thromboplastin Ratio 0.9; Partial Thromboplastin Time 24.4 Seconds (21.0-31.0); Prothrombin Time 10.8 Seconds (9.0-12.0)
[2019-11-30] MEDS ORDERED: CEFEPIME 20 ML IV STA (16:13)
[2019-11-30] MEDS ORDERED: AZITHROMYCIN 500 MG in DEXTROSE 5% 250 ML IV STA (16:15)
[2019-11-30] MEDS ORDERED: VANCOMYCIN HCL 1,750 MG in SODIUM CHLORIDE 0.9% 500 ML IV STA (16:15)
[2019-11-30 16:17] LABS: Alanine Aminotransferase 16 U/L (12-78); Albumin Level 3.7 gm/dl (3.4-5.0); Aspartate Aminotransferase 14 U/L (15-37); BUN Creatinine Ratio 7.5 (10-20); Blood Urea Nitrogen 8 mg/dl (7-18); Calcium 9.3 mg/dl (8.5-10.1); Carbon Dioxide 16 mmol/L (21-32); Chloride 102 mmol/L (98-107); Est GFR (African American) 61.2; Est GFR (Non-African American) 52.8; Glucose 180 mg/dl (70-99); Magnesium 2.1 mg/dl (1.8-2.4); Potassium 3.4 mmol/L (3.5-5.1); Sodium 133 mmol/L (136-145)
--- NOTE | 2019-11-30 16:24 | Emergency Department Note ---
History of Present Illness General Chief complaint: Altered Mental Status Stated complaint: AMS, DIARRHEA, NAUSEA, COUGH, ILLNESS Time Seen by Provider: 11/30/19 15:43 Source: family, EMS, RN notes reviewed and old records reviewed Mode of arrival: EMS Limitations: altered mental status History of Present Illness Provider complaint: Altered mental status Onset (ago): day(s) 3 Associated symptoms: + confusion and + seizure Daughter (Sara) . This patient arrives via EMS. Per the daughter and EMS there was concern that the patient had developed a cough and was not feeling well over the past several days. There is also some concern that the patient was not taking her medications. The son found the patient altered today and decided to call for an ambulance. Upon arrival to the emergency department the patient immediately started seizing and is having snoring respirations. She is satting 83% on room air. Home Medications Home Medications Medication Instructions Recorded Confirmed Type atorvastatin 20 mg tablet 20 mg PO QAM #90 tab 01/29/19 11/30/19 History metformin 500 mg tablet 500 mg PO BID #180 tab 01/29/19 11/30/19 History levetiracetam 750 mg tablet 750 mg PO BID 30 Days #60 tab 07/29/19 11/30/19 Rx diclofenac sodium 1 % topical gel 4 gm TOPICAL QID PRN #100 gm 09/29/19 11/30/19 Rx phenytoin sodium extended 100 mg See Rx Instructions PO .COMPLEX 11/03/19 11/30/19 Rx capsule #90 cap levothyroxine 50 mcg PO QAM 11/30/19 11/30/19 History naproxen 375 mg PO BID PRN 11/30/19 11/30/19 History Allergies Allergy/AdvReac Type Severity Reaction Status Date / Time allopurinol [From Zyloprim] Allergy Unknown Unknown Verified 08/24/19 16:36 lorazepam Allergy Unknown Unknown Verified 08/24/19 16:36 nortriptyline Allergy Unknown Unknown Verified 08/24/19 16:36 Opioids - Morphine Analogues Allergy Unknown Unknown Verified 08/24/19 16:36 peanut Allergy Unknown SNEEZE, Verified 08/24/19 16:36 COUGH Penicillins Allergy Unknown Unknown Verified 08/24/19 16:36 Sulfa (Sulfonamide Allergy Unknown Unknown Verified 08/24/19 16:36 Antibiotics) levofloxacin [From Levaquin] AdvReac Intermediate Possible Verified 12/02/19 08:06 seizure risedronate sodium AdvReac Intermediate Intolerence Verified 12/02/19 08:06 [From Actonel] Past Med/Surg History Medical History Acid reflux Asthma (Acute) Dyslipidemia (Chronic) Hiatal hernia History of shingles (~2019) History of stroke 20 YRS AGO, MEMORY PROBLEM AFTER AND TROUBLE SPELLING Hypothyroidism (Chronic) Osteoarthritis (Chronic) Osteoporosis (Acute) Seizure disorder (Chronic) Type 2 diabetes mellitus (Chronic) Vitamin D deficiency (Acute) Surgical History History of ankle surgery L X2 History of colonoscopy History of surgery on left wrist Family History Father Hypertension Mother Diabetes Myocardial infarction Brother Lung disease Diabetes Brother Diabetes Brother Diabetes Brother Diabetes Brother Diabetes Social History Preferred Language: [place]atian Communication Ability: Effective Hearing Ability: Normal 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 Beliefs That Will Affect Care: None marital status: / Current Living Situation: Other Current Living Situation Comment: mech vent/ sedated- unable to obtain Feels Safe at Home: Yes Smoking Status: Unknown if ever smoked Hx Alcohol Use: No Hx Substance Use: No Seatbelt Use: always Sunscreen Use: Yes Review of Systems A total of 10 systems reviewed and were otherwise negative Physical Exam Vital Signs Vital Signs - 24 hr 11/30/19 15:40 11/30/19 15:41 11/30/19 15:45 Pulse Rate 74 67 87 Pulse Rate from SpO2 Sensor 77 67 88 Respiratory Rate 15 16 18 Blood Pressure 167/61 H 135/75 Blood Pressure Mean 99 109 Pulse Oximetry 100 100 100 Oxygen Delivery Method Room Air Oxygen Flow Rate Fraction of Inspired Oxygen SaO2/FiO2 Ratio Sepsis Recent Fever Within 48 Hours No Sepsis New/Unexplained Change in Mental Status No Sepsis Action Taken by Nursing No Action Required 11/30/19 15:50 11/30/19 15:51 11/30/19 15:55 Pulse Rate 92 H 95 H 113 H Pulse Rate from SpO2 Sensor 90 94 H 106 H Respiratory Rate 19 19 29 H Blood Pressure 136/66 Blood Pressure Mean 91 Pulse Oximetry 98 97 98 Oxygen Delivery Method Oxygen Flow Rate Fraction of Inspired Oxygen SaO2/FiO2 Ratio Sepsis Recent Fever Within 48 Hours Sepsis New/Unexplained Change in Mental Status Sepsis Action Taken by Nursing 11/30/19 16:00 11/30/19 16:05 11/30/19 16:08 Pulse Rate 106 H 108 H Pulse Rate from SpO2 Sensor 108 H 109 H Respiratory Rate 18 15 Blood Pressure Blood Pressure Mean Pulse Oximetry 98 99 94 Oxygen Delivery Method Non-rebreather Oxygen Flow Rate 15 Fraction of Inspired Oxygen SaO2/FiO2 Ratio Sepsis Recent Fever Within 48 Hours Sepsis New/Unexplained Change in Mental Status Sepsis Action Taken by Nursing 11/30/19 16:09 11/30/19 16:10 11/30/19 16:11 Pulse Rate 103 H 104 H 99 H Pulse Rate from SpO2 Sensor 102 H 106 H 99 H Respiratory Rate 18 16 18 Blood Pressure 156/87 H 154/120 H Blood Pressure Mean 106 124 Pulse Oximetry 99 99 100 Oxygen Delivery Method Oxygen Flow Rate Fraction of Inspired Oxygen SaO2/FiO2 Ratio Sepsis Recent Fever Within 48 Hours Sepsis New/Unexplained Change in Mental Status Sepsis Action Taken by Nursing 11/30/19 16:12 11/30/19 16:15 11/30/19 16:16 Pulse Rate 89 93 H 93 H Pulse Rate from SpO2 Sensor 90 92 H 92 H Respiratory Rate 16 22 18 Blood Pressure 168/83 H 149/99 H Blood Pressure Mean 105 108 Pulse Oximetry 99 99 99 Oxygen Delivery Method Oxygen Flow Rate Fraction of Inspired Oxygen SaO2/FiO2 Ratio Sepsis Recent Fever Within 48 Hours Sepsis New/Unexplained Change in Mental Status Sepsis Action Taken by Nursing 11/30/19 16:20 11/30/19 16:21 11/30/19 16:25 Pulse Rate 83 84 97 H Pulse Rate from SpO2 Sensor 82 84 98 H Respiratory Rate 16 13 19 Blood Pressure 136/72 Blood Pressure Mean 91 Pulse Oximetry 99 100 99 Oxygen Delivery Method Oxygen Flow Rate Fraction of Inspired Oxygen SaO2/FiO2 Ratio Sepsis Recent Fever Within 48 Hours Sepsis New/Unexplained Change in Mental Status Sepsis Action Taken by Nursing 11/30/19 16:28 11/30/19 16:30 11/30/19 16:35 Pulse Rate 119 H 120 H Pulse Rate from SpO2 Sensor 117 H 122 H Respiratory Rate 18 19 Blood Pressure Blood Pressure Mean Pulse Oximetry 98 98 96 Oxygen Delivery Method Mechanical Vent Oxygen Flow Rate Fraction of Inspired Oxygen 40 100 SaO2/FiO2 Ratio 245 Sepsis Recent Fever Within 48 Hours Sepsis New/Unexplained Change in Mental Status Sepsis Action Taken by Nursing 11/30/19 16:38 11/30/19 16:40 11/30/19 16:41 Pulse Rate 91 H 91 H 95 H Pulse Rate from SpO2 Sensor 92 H 90 96 H Respiratory Rate 17 24 21 Blood Pressure 124/62 122/56 L Blood Pressure Mean 103 78 Pulse Oximetry 97 96 98 Oxygen Delivery Method Oxygen Flow Rate Fraction of Inspired Oxygen SaO2/FiO2 Ratio Sepsis Recent Fever Within 48 Hours Sepsis New/Unexplained Change in Mental Status Sepsis Action Taken by Nursing 11/30/19 16:45 11/30/19 16:50 Pulse Rate 91 H 87 Pulse Rate from SpO2 Sensor 92 H 88 Respiratory Rate 24 17 Blood Pressure 102/50 L Blood Pressure Mean 76 Pulse Oximetry 99 98 Oxygen Delivery Method Oxygen Flow Rate Fraction of Inspired Oxygen 40 SaO2/FiO2 Ratio Sepsis Recent Fever Within 48 Hours Sepsis New/Unexplained Change in Mental Status Sepsis Action Taken by Nursing GENERAL: Patient is a ill-appearing female with snoring respirations,pale, cyanotic in appearance HEAD: Normocephalic atraumatic EYES: Ocular movements intact pupils equal and react to light OROPHARYNX mucous membranes are moist no exudates present no erythema or edema present NECK: Supple no nuchal rigidity CHEST: Good equal expansion LUNGS: ronchorus Lower left side CARDIAC: Normal S1 and S2 ABDOMEN: Soft nontender no guarding BACK: No CVA tenderness EXTREMITIES: No pain upon palpation normal muscle strength in all groups no clubbing cyanosis or edema NEURO: Patient unresponsive to physical stimuli Course Administered Medications Acetaminophen (Tylenol) 650 mg PO Q4H PRN PRN Reason: Pain Stop: 12/31/19 11:50 Last Admin: 12/02/19 09:12 Dose: 650 mg Documented by: [id number] Admin: 12/02/19 02:12 Dose: 650 mg Documented by: [id number] Admin: 12/01/19 21:25 Dose: 650 mg Documented by: [id number] Admin: 12/01/19 15:55 Dose: 650 mg Documented by: [id number] Admin: 12/01/19 12:09 Dose: 650 mg Documented by: [id number] [facility] Stop: 12/09/19 08:59 Last Admin: 12/02/19 09:04 Dose: 250 mg Documented by: [id number] Diclofenac Sodium (Voltaren 1% Top) 4 gm EXT QID PRN PRN Reason: Pain Stop: 12/30/19 19:49 Last Admin: 12/02/19 09:09 Dose: 4 gm Documented by: [id number] Admin: 12/01/19 09:10 Dose: 4 gm Documented by: [id number] Heparin Sodium (Porcine) (Heparin Sodium (Porcine)) 5,000 units SQ Q8H [facility] Stop: 12/30/19 19:59 Last Admin: 12/02/19 12:24 Dose: 5,000 units Documented by: [id number] Cosigned by: [id number] Admin: 12/02/19 03:57 Dose: 5,000 units Documented by: [id number] Cosigned by: [id number] Admin: 12/01/19 20:48 Dose: 5,000 units Documented by: [id number] Cosigned by: [id number] Admin: 12/01/19 11:56 Dose: 5,000 units Documented by: [id number] Cosigned by: [id number] Admin: 12/01/19 03:32 Dose: 5,000 units Documented by: [id number] Cosigned by: [id number] Admin: 11/30/19 22:01 Dose: 5,000 units Documented by: [id number] Cosigned by: [id number] Insulin Aspart (Novolog Flexpen) 0 units SC ACHS [facility] Stop: 12/31/19 16:29 Last Admin: 12/02/19 12:24 Dose: 2 units Documented by: [id number] Cosigned by: [id number] Admin: 12/02/19 09:05 Dose: 2 units Documented by: [id number] Cosigned by: [id number] Admin: 12/01/19 20:47 Dose: Not Given Documented by: [id number] Cosigned by: [id number] Admin: 12/01/19 17:02 Dose: 2 units Documented by: [id number] Cosigned by: [id number] Levetiracetam (Keppra) 750 mg PO BID [facility] Stop: 12/31/19 20:59 Last Admin: 12/02/19 09:04 Dose: 750 mg Documented by: [id number] Admin: 12/01/19 20:05 Dose: 750 mg Documented by: [id number] Levothyroxine Sodium (Synthroid) 50 mcg PO QAM [facility] Stop: 01/01/20 08:59 Last Admin: 12/02/19 09:04 Dose: 50 mcg Documented by: [id number] Phenytoin Sodium (Dilantin Er) 100 mg PO DAILY@0800 [facility] Stop: 01/01/20 07:59 Last Admin: 12/02/19 09:04 Dose: 100 mg Documented by: [id number] Phenytoin Sodium (Dilantin Er) 200 mg PO 2000 [facility] Stop: 12/31/19 19:59 Last Admin: 12/01/19 20:05 Dose: 200 mg Documented by: [id number] Potassium Chloride (Klor-Con M20) 20 meq PO BID [facility] Stop: 12/03/19 08:01 Last Admin: 12/02/19 09:02 Dose: 20 meq Documented by: [id number] Discontinued Medications Fentanyl Citrate (Fentanyl Citrate) 50 mcg IV NOW ONE Stop: 11/30/19 18:31 Last Admin: 11/30/19 18:31 Dose: 50 mcg Documented by: [id number] Levetiracetam 1,750 mg/ Sodium (Chloride) 117.5 mls @ 440 mls/hr IV NOW STA Stop: 11/30/19 16:09 Last Infusion: 11/30/19 20:58 Dose: 0 mls/hr Documented by: [id number] Admin: 11/30/19 16:58 Dose: 440 mls/hr Documented by: [id number] Sodium Chloride (Nss 1000ml) 1,000 mls @ 999 mls/hr IV .Q1H1M ONE Stop: 11/30/19 16:58 Last Infusion: 11/30/19 20:59 Dose: 0 mls/hr Documented by: [id number] Admin: 11/30/19 18:50 Dose: 999 mls/hr Documented by: [id number] Propofol (Diprivan) 1,000 mg in 100 mls @ 13.215 mls/hr IV .Q7H35M [facility]; Protocol Stop: 12/03/19 16:14 Last Titration: 12/01/19 10:39 Dose: 0 mcg/kg/min, 0 mls/hr Documented by: [id number] Titration: 12/01/19 08:45 Dose: 0 mcg/kg/min, 0 mls/hr Documented by: [id number] Admin: 12/01/19 08:19 Dose: Not Given Documented by: [id number] Cosigned by: [id number] Admin: 12/01/19 08:18 Dose: 25 mcg/kg/min, 13.2 mls/hr Documented by: [id number] Cosigned by: [id number] Titration: 12/01/19 08:18 Dose: 25 mcg/kg/min, 13.2 mls/hr Documented by: [id number] Cosigned by: [id number] Titration: 12/01/19 07:45 Dose: 25 mcg/kg/min, 13.2 mls/hr Documented by: [id number] Titration: 12/01/19 07:05 Dose: 35 mcg/kg/min, 18.5 mls/hr Documented by: [id number] Cosigned by: [id number] Titration: 12/01/19 04:56 Dose: 40 mcg/kg/min, 21.1 mls/hr Documented by: [id number] Admin: 12/01/19 03:33 Dose: 45 mcg/kg/min, 23.8 mls/hr Documented by: [id number] Cosigned by: [id number] Titration: 12/01/19 03:18 Dose: 40 mcg/kg/min, 21.1 mls/hr Documented by: [id number] Cosigned by: [id number] Admin: 11/30/19 23:05 Dose: 45 mcg/kg/min, 23.8 mls/hr Documented by: [id number] Cosigned by: [id number] Titration: 11/30/19 23:05 Dose: 45 mcg/kg/min, 23.8 mls/hr Documented by: [id number] Cosigned by: [id number] Titration: 11/30/19 22:37 Dose: 45 mcg/kg/min, 23.8 mls/hr Documented by: [id number] Titration: 11/30/19 20:20 Dose: 40 mcg/kg/min, 21.1 mls/hr Documented by: [id number] Titration: 11/30/19 18:30 Dose: 35 mcg/kg/min, 18.5 mls/hr Documented by: [id number] Admin: 11/30/19 16:30 Dose: 5 mcg/kg/min, 2.6 mls/hr Documented by: [id number] Cosigned by: [id number] Cefepime HCl (Maxipime) 20 mls @ 5 mls/min IV NOW STA Stop: 11/30/19 16:16 Last Admin: 11/30/19 16:58 Dose: 5 mls/min Documented by: [id number] Vancomycin HCl 1,750 mg/ (Sodium Chloride) 535 mls @ 200 mls/hr IV NOW STA Stop: 11/30/19 18:55 Last Infusion: 11/30/19 21:02 Dose: 0 mls/hr Documented by: [id number] Admin: 11/30/19 17:00 Dose: 200 mls/hr Documented by: [id number] Azithromycin 500 mg/ Dextrose 255 mls @ 127.5 mls/hr IV NOW STA Stop: 11/30/19 18:14 Last Infusion: 12/01/19 00:20 Dose: 0 mls/hr Documented by: [id number] Admin: 11/30/19 22:00 Dose: 127.5 mls/hr Documented by: [id number] Propofol (Diprivan) 120 mg in 12 mls @ 360 mls/hr IV .Q2M [facility]; Protocol Stop: 11/30/19 16:27 Last Titration: 11/30/19 16:34 Dose: 0 ml/min, 0 mls/hr Documented by: [id number] Admin: 11/30/19 16:30 Dose: 4 ml/min, 240 mls/hr Documented by: [id number] Cosigned by: [id number] Propofol (Diprivan) 120 mg in 12 mls @ 240 mls/hr IV .Q3M [facility]; Protocol Stop: 11/30/19 17:02 Last Titration: 11/30/19 17:05 Dose: 0 ml/min, 0 mls/hr Documented by: [id number] Admin: 11/30/19 17:02 Dose: 4 ml/min, 240 mls/hr Documented by: [id number] Cosigned by: [id number] Propofol (Diprivan) 120 mg in 12 mls @ 240 mls/hr IV .Q3M [facility]; Protocol Stop: 11/30/19 17:22 Last Titration: 11/30/19 17:25 Dose: 0 ml/min, 0 mls/hr Documented by: [id number] Admin: 11/30/19 17:22 Dose: 4 ml/min, 240 mls/hr Documented by: [id number] Cosigned by: [id number] Phenytoin 500 mg/ Syringe 10 mls @ 1 mls/min IV UD [facility] Stop: 11/30/19 17:43 Last Admin: 11/30/19 20:56 Dose: Not Given Documented by: [id number] Propofol (Diprivan) 120 mg in 12 mls @ 240 mls/hr IV .Q3M [facility]; Protocol Stop: 11/30/19 18:46 Last Titration: 11/30/19 20:58 Dose: 0 mls/hr, 0 mls/hr Documented by: [id number] Admin: 11/30/19 19:30 Dose: 240 mls/hr, 240 mls/hr Documented by: [id number] Cosigned by: [id number] Levetiracetam 750 mg/ Sodium (Chloride) 107.5 mls @ 440 mls/hr IV Q12H [facility] Stop: 12/31/19 07:59 Last Infusion: 12/01/19 09:08 Dose: 0 mls/hr Documented by: [id number] Admin: 12/01/19 08:20 Dose: 440 mls/hr Documented by: [id number] Phenytoin 100 mg/ Syringe 2 mls @ 1 mls/min IV QAM@0800 [facility] Stop: 12/31/19 07:59 Last Admin: 12/01/19 08:19 Dose: 1 mls/min Documented by: [id number] Phenytoin 200 mg/ Syringe 4 mls @ 1 mls/min IV QPM@2000 [facility] Stop: 12/30/19 20:29 Last Admin: 11/30/19 22:01 Dose: 1 mls/min Documented by: [id number] Cefepime HCl 1,000 mg/ Syringe 11.3 mls @ 5.5 mls/min IV Q12H [facility]; Protocol Stop: 12/03/19 03:59 Last Admin: 12/01/19 03:34 Dose: 5.5 mls/min Documented by: [id number] Azithromycin 250 mg/ Dextrose 252.5 mls @ 125 mls/hr IV DAILY@0800 [facility] Stop: 12/08/19 07:59 Last Infusion: 12/01/19 10:40 Dose: 0 mls/hr Documented by: [id number] Admin: 12/01/19 08:20 Dose: 125 mls/hr Documented by: [id number] Vancomycin HCl 1,250 mg/ (Sodium Chloride) 275 mls @ 125 mls/hr IV Q18H [facility]; Protocol Stop: 12/03/19 07:59 Last Infusion: 04/22/20 10:39 Dose: 0 mls/hr Documented by: [id number] Admin: 12/01/19 08:20 Dose: 125 mls/hr Documented by: [id number] Parenteral Electrolytes (Normosol-R) 1,000 mls @ 80 mls/hr IV .[id number] [facility] Stop: 12/31/19 03:44 Last Infusion: 12/01/19 10:39 Dose: 0 mls/hr Documented by: [id number] Admin: 12/01/19 04:57 Dose: 80 mls/hr Documented by: [id number] Potassium Phosphate 21 mmol/ (Sodium Chloride) 507 mls @ 125 mls/hr IV ONE ONE Stop: 12/01/19 16:03 Last Infusion: 12/01/19 17:44 Dose: 0 mls/hr Documented by: [id number] Admin: 12/01/19 11:58 Dose: 125 mls/hr Documented by: [id number] Ceftriaxone Sodium 2,000 mg/ (Dextrose) 70 mls @ 100 mls/hr IV DAILY [facility]; Protocol Stop: 12/09/19 08:59 Last Infusion: 12/02/19 09:54 Dose: 0 mls/hr Documented by: [id number] Admin: 12/02/19 09:12 Dose: 100 mls/hr Documented by: [id number] Sodium Chloride (Nss) 500 mls @ 80 mls/hr IV .Q6H15M [facility] Stop: 01/01/20 07:59 Last Admin: 12/02/19 17:01 Dose: Not Given Documented by: [id number] Infusion: 12/02/19 15:21 Dose: 0 mls/hr Documented by: [id number] Admin: 12/02/19 09:06 Dose: 80 mls/hr Documented by: [id number] Insulin Aspart (Novolog Flexpen) 0 units SC Q4 [facility] Stop: 12/01/19 13:00 Last Admin: 12/01/19 12:11 Dose: 1 units Documented by: [id number] Cosigned by: [id number] Admin: 12/01/19 08:28 Dose: Not Given Documented by: [id number] Cosigned by: [id number] Admin: 12/01/19 04:31 Dose: Not Given Documented by: [id number] Cosigned by: [id number] Admin: 04/21/20 23:46 Dose: Not Given Documented by: [id number] Cosigned by: [id number] Admin: 11/30/19 22:08 Dose: Not Given Documented by: [id number] Cosigned by: [id number] Insulin Glargine (Lantus Solostar Pen) 0 units SC BID@0800,2000 [facility]; Protocol Stop: 12/31/19 00:00 Last Admin: 12/01/19 08:27 Dose: Not Given Documented by: [id number] Admin: 11/30/19 23:44 Dose: Not Given Documented by: [id number] Ioversol (Optiray 320 125ml) 116 ml IV ONCE PRN PRN Reason: Interaction Checking Stop: 12/04/19 16:59 Last Admin: 11/30/19 17:00 Dose: 116 ml Documented by: [id number] Levothyroxine Sodium (Synthroid) 25 mcg PO DAILY@0800 [facility] Stop: 12/31/19 07:59 Last Admin: 12/01/19 08:21 Dose: 25 mcg Documented by: [id number] Menthol (Nice) Confirm Administered Dose 24 letitia BUCCAL .STK-MED ONE Stop: 12/02/19 06:51 Last Admin: 12/02/19 10:13 Dose: Not Given Documented by: [id number] Menthol (Nice) 1 letitia BUCCAL NOW STA Stop: 12/02/19 07:19 Last Admin: 12/02/19 12:25 Dose: 24 letitia Documented by: [id number] Miscellaneous () Confirm Administered Dose 1 ea .ROUTE .STK-MED ONE Stop: 11/30/19 15:43 Last Admin: 11/30/19 20:56 Dose: Not Given Documented by: [id number] Miscellaneous () Confirm Administered Dose 1 ea .ROUTE .STK-MED ONE Stop: 11/30/19 15:46 Last Admin: 11/30/19 20:56 Dose: Not Given Documented by: [id number] Miscellaneous () 1 ea N/A NOW STA Stop: 11/30/19 16:05 Last Admin: 11/30/19 20:56 Dose: Not Given Documented by: [id number] Propofol (Diprivan Bolus From Bag) 20 mg IV NOW STA Stop: 11/30/19 20:21 Last Admin: 11/30/19 20:20 Dose: 20 mg Documented by: [id number] Cosigned by: [id number] Sodium Chloride (Sodium Chloride Flush) 20 ml IV ONCE [facility] Stop: 11/30/19 17:35 Last Admin: 11/30/19 20:57 Dose: Not Given Documented by: [id number] Sodium Chloride (Sodium Chloride Flush) 20 ml IV HS@2000 [facility] Stop: 12/30/19 20:29 Last Admin: 11/30/19 22:02 Dose: 20 ml Documented by: [id number] Sodium Chloride (Sodium Chloride Flush) 20 ml IV DAILY@0800 [facility] Stop: 12/31/19 07:59 Last Admin: 12/01/19 08:21 Dose: 20 ml Documented by: [id number] Vecuronium Molina (Norcuron) 10 mg IV NOW ONE Stop: 11/30/19 17:31 Last Admin: 11/30/19 17:30 Dose: 10 mg Documented by: [id number] Cosigned by: [id number] Critical Care Time Critical Care Time: Yes I have personally spent greater than 90 minutes of critical care time in the direct management of this patient. This includes bedside care, interpretation of diagnostic studies, and testing, discussion with consultants, patient, and family members, and other required patient management activities. This 90 minutes is in excess of all separately billable procedures. Medical Decision Making Differential Diagnosis Sepsis, UTI, pneumonia, metabolic, electrolyte abnormalities, cardiac sources, intracerebral event, toxicologic, neurologic, as well as other pathologies. Medical Records Attestation: I reviewed the patient's medical records. Home Medications Current Medication List: was personally reviewed by me Laboratory Data Attestation: I reviewed the patient's lab results. Result diagrams: 12/01/19 07:15 12/02/19 06:41 Lab Results 11/30/19 11/30/19 11/30/19 Range/Units 15:47 15:47 15:47 WBC 11.11 H (4.8-10.8) K/uL RBC 4.02 L (4.2-5.4) M/uL Hgb 12.6 (12.0-16.0) g/dL POC Hgb (12.0-16.0) g/dl Hct 39.0 (37-47) % POC Hct (37-47) % MCV 97.0 (80-100) fL MCH 31.3 (25-34) pg MCHC 32.3 (32-36) g/dL RDW Std Deviation 47.7 H (36.4-46.3) fL RDW Coeff of Ana 13.3 (11.5-14.5) % Plt Count 331 (130-400) K/uL MPV 9.3 (7.4-10.4) fL Immature Gran % (Auto) 0.4 % Neut % (Auto) 50.9 % Lymph % (Auto) 37.5 % Armstrong % (Auto) 9.6 % Eos % (Auto) 1.4 % Baso % (Auto) 0.2 % Immature Gran # (Auto) 0.04 H (0.00-0.02) K/uL Neut # (Auto) 5.66 (1.4-6.5) K/uL Lymph # (Auto) 4.17 H (1.2-3.4) K/uL Armstrong # (Auto) 1.07 H (0.11-0.59) K/uL Eos # (Auto) 0.15 (0-0.5) K/uL Baso # (Auto) 0.02 (0-0.2) K/uL ESR (0-21) mm/hr PT 10.8 (9.0-12.0) Seconds INR 1.0 (0.9-1.1) APTT 24.4 (21.0-31.0) Seconds PTT Ratio 0.9 POC Sodium (135-144) mmol/L Sodium 133 L (136-145) mmol/L POC Potassium (3.3-5.0) mmol/L Potassium 3.4 L (3.5-5.1) mmol/L POC Chloride (101-112) mmol/L Chloride 102 (98-107) mmol/L Carbon Dioxide 16 L (21-32) mmol/L POC Total CO2 (24-31) mEq/l Anion Gap 15.0 H (3-11) POC Anion Gap (16-25) mmol/L POC BUN (7-18) mg/dl BUN 8 (7-18) mg/dl Creatinine 1.00 (0.6-1.2) mg/dl POC Creatinine (0.6-1.3) mg/dl Est Cr Clr Drug Dosing Not Reportable Est GFR ( Amer) 61.2 Est GFR (Non-Af Amer) 52.8 BUN/Creatinine Ratio 7.5 L (10-20) Glucose 180 H (70-99) mg/dl POC Glucose (other) (70-99) mg/dl POC Lactic Acid Mariano (0.90-1.70) mmol/L Calcium 9.3 (8.5-10.1) mg/dl POC Ioniz Calcium Grace (1.12-1.32) mmol/l Magnesium 2.1 (1.8-2.4) mg/dl Ferritin (8-388) ng/ml Total Bilirubin 0.2 (0.2-1) mg/dl AST 14 L (15-37) U/L ALT 16 (12-78) U/L Alkaline Phosphatase 106 (45-117) U/L Lactate Dehydrogenase (84-246) U/L Total Creatine Kinase 125 (26-192) U/L CK-MB (CK-2) 1.4 (0.5-3.6) ng/ml CK/CKMB % Calc 1.1 (0-3.0) Troponin I < 0.015 (0-0.045) ng/ml C-Reactive Protein (0-0.29) mg/dl Total Protein 8.0 (6.4-8.2) gm/dl Albumin 3.7 (3.4-5.0) gm/dl Globulin 4.3 H (2.5-4.0) gm/dl Albumin/Globulin Ratio 0.9 (0.9-2) Procalcitonin (0-0.5) ng/ml Phenytoin (10-20) mcg/ml 11/30/19 11/30/19 11/30/19 Range/Units 15:47 15:47 15:47 WBC (4.8-10.8) K/uL RBC (4.2-5.4) M/uL Hgb (12.0-16.0) g/dL POC Hgb (12.0-16.0) g/dl Hct (37-47) % POC Hct (37-47) % MCV (80-100) fL MCH (25-34) pg MCHC (32-36) g/dL RDW Std Deviation (36.4-46.3) fL RDW Coeff of Ana (11.5-14.5) % Plt Count (130-400) K/uL MPV (7.4-10.4) fL Immature Gran % (Auto) % Neut % (Auto) % Lymph % (Auto) % Armstrong % (Auto) % Eos % (Auto) % Baso % (Auto) % Immature Gran # (Auto) (0.00-0.02) K/uL Neut # (Auto) (1.4-6.5) K/uL Lymph # (Auto) (1.2-3.4) K/uL Armstrong # (Auto) (0.11-0.59) K/uL Eos # (Auto) (0-0.5) K/uL Baso # (Auto) (0-0.2) K/uL ESR 72 H (0-21) mm/hr PT (9.0-12.0) Seconds INR (0.9-1.1) APTT (21.0-31.0) Seconds PTT Ratio POC Sodium (135-144) mmol/L Sodium (136-145) mmol/L POC Potassium (3.3-5.0) mmol/L Potassium (3.5-5.1) mmol/L POC Chloride (101-112) mmol/L Chloride (98-107) mmol/L Carbon Dioxide (21-32) mmol/L POC Total CO2 (24-31) mEq/l Anion Gap (3-11) POC Anion Gap (16-25) mmol/L POC BUN (7-18) mg/dl BUN (7-18) mg/dl Creatinine (0.6-1.2) mg/dl POC Creatinine (0.6-1.3) mg/dl Est Cr Clr Drug Dosing Est GFR ( Amer) Est GFR (Non-Af Amer) BUN/Creatinine Ratio (10-20) Glucose (70-99) mg/dl POC Glucose (other) (70-99) mg/dl POC Lactic Acid Mariano (0.90-1.70) mmol/L Calcium (8.5-10.1) mg/dl POC Ioniz Calcium Grace (1.12-1.32) mmol/l Magnesium (1.8-2.4) mg/dl Ferritin (8-388) ng/ml Total Bilirubin (0.2-1) mg/dl AST (15-37) U/L ALT (12-78) U/L Alkaline Phosphatase (45-117) U/L Lactate Dehydrogenase (84-246) U/L Total Creatine Kinase (26-192) U/L CK-MB (CK-2) (0.5-3.6) ng/ml CK/CKMB % Calc (0-3.0) Troponin I (0-0.045) ng/ml C-Reactive Protein (0-0.29) mg/dl Total Protein (6.4-8.2) gm/dl Albumin (3.4-5.0) gm/dl Globulin (2.5-4.0) gm/dl Albumin/Globulin Ratio (0.9-2) Procalcitonin < 0.05 (0-0.5) ng/ml Phenytoin 3.3 L (10-20) mcg/ml 11/30/19 11/30/19 11/30/19 Range/Units 15:47 15:47 15:53 WBC (4.8-10.8) K/uL RBC (4.2-5.4) M/uL Hgb (12.0-16.0) g/dL POC Hgb (12.0-16.0) g/dl Hct (37-47) % POC Hct (37-47) % MCV (80-100) fL MCH (25-34) pg MCHC (32-36) g/dL RDW Std Deviation (36.4-46.3) fL RDW Coeff of Ana (11.5-14.5) % Plt Count (130-400) K/uL MPV (7.4-10.4) fL Immature Gran % (Auto) % Neut % (Auto) % Lymph % (Auto) % Armstrong % (Auto) % Eos % (Auto) % Baso % (Auto) % Immature Gran # (Auto) (0.00-0.02) K/uL Neut # (Auto) (1.4-6.5) K/uL Lymph # (Auto) (1.2-3.4) K/uL Armstrong # (Auto) (0.11-0.59) K/uL Eos # (Auto) (0-0.5) K/uL Baso # (Auto) (0-0.2) K/uL ESR (0-21) mm/hr PT (9.0-12.0) Seconds INR (0.9-1.1) APTT (21.0-31.0) Seconds PTT Ratio POC Sodium (135-144) mmol/L Sodium (136-145) mmol/L POC Potassium (3.3-5.0) mmol/L Potassium (3.5-5.1) mmol/L POC Chloride (101-112) mmol/L Chloride (98-107) mmol/L Carbon Dioxide (21-32) mmol/L POC Total CO2 (24-31) mEq/l Anion Gap (3-11) POC Anion Gap (16-25) mmol/L POC BUN (7-18) mg/dl BUN (7-18) mg/dl Creatinine (0.6-1.2) mg/dl POC Creatinine (0.6-1.3) mg/dl Est Cr Clr Drug Dosing Est GFR ( Amer) Est GFR (Non-Af Amer) BUN/Creatinine Ratio (-20) Glucose (70-99) mg/dl POC Glucose (other) (70-99) mg/dl POC Lactic Acid Mariano 12.53 H (0.90-1.70) mmol/L Calcium (8.5-10.1) mg/dl POC Ioniz Calcium Grace (1.12-1.32) mmol/l Magnesium (1.8-2.4) mg/dl Ferritin 52.8 (8-388) ng/ml Total Bilirubin (0.2-1) mg/dl AST (15-37) U/L ALT (12-78) U/L Alkaline Phosphatase (45-117) U/L Lactate Dehydrogenase 182 (84-246) U/L Total Creatine Kinase (26-192) U/L CK-MB (CK-2) (0.5-3.6) ng/ml CK/CKMB % Calc (0-3.0) Troponin I (0-0.045) ng/ml C-Reactive Protein < 0.29 (0-0.29) mg/dl Total Protein (6.4-8.2) gm/dl Albumin (3.4-5.0) gm/dl Globulin (2.5-4.0) gm/dl Albumin/Globulin Ratio (0.9-2) Procalcitonin (0-0.5) ng/ml Phenytoin (10-20) mcg/ml 04/21/20 Range/Units 15:57 WBC (4.8-10.8) K/uL RBC (4.2-5.4) M/uL Hgb (12.0-16.0) g/dL POC Hgb 13.6 (12.0-16.0) g/dl Hct (37-47) % POC Hct 40 (37-47) % MCV (80-100) fL MCH (25-34) pg MCHC (32-36) g/dL RDW Std Deviation (36.4-46.3) fL RDW Coeff of Ana (11.5-14.5) % Plt Count (130-400) K/uL MPV (7.4-10.4) fL Immature Gran % (Auto) % Neut % (Auto) % Lymph % (Auto) % Armstrong % (Auto) % Eos % (Auto) % Baso % (Auto) % Immature Gran # (Auto) (0.00-0.02) K/uL Neut # (Auto) (1.4-6.5) K/uL Lymph # (Auto) (1.2-3.4) K/uL Armstrong # (Auto) (0.11-0.59) K/uL Eos # (Auto) (0-0.5) K/uL Baso # (Auto) (0-0.2) K/uL ESR (0-21) mm/hr PT (9.0-12.0) Seconds INR (0.9-1.1) APTT (21.0-31.0) Seconds PTT Ratio POC Sodium 134 L (135-144) mmol/L Sodium (136-145) mmol/L POC Potassium 3.8 (3.3-5.0) mmol/L Potassium (3.5-5.1) mmol/L POC Chloride 102 (101-112) mmol/L Chloride (98-107) mmol/L Carbon Dioxide (21-32) mmol/L POC Total CO2 19 L (24-31) mEq/l Anion Gap (3-11) POC Anion Gap 19.0 (16-25) mmol/L POC BUN 8 (7-18) mg/dl BUN (7-18) mg/dl Creatinine (0.6-1.2) mg/dl POC Creatinine 0.7 (0.6-1.3) mg/dl Est Cr Clr Drug Dosing Est GFR ( Amer) Est GFR (Non-Af Amer) BUN/Creatinine Ratio (10-20) Glucose (70-99) mg/dl POC Glucose (other) 187 H (70-99) mg/dl POC Lactic Acid Mariano (0.90-1.70) mmol/L Calcium (8.5-10.1) mg/dl POC Ioniz Calcium Grace 1.19 (1.12-1.32) mmol/l Magnesium (1.8-2.4) mg/dl Ferritin (8-388) ng/ml Total Bilirubin (0.2-1) mg/dl AST (15-37) U/L ALT (12-78) U/L Alkaline Phosphatase (45-117) U/L Lactate Dehydrogenase (84-246) U/L Total Creatine Kinase (26-192) U/L CK-MB (CK-2) (0.5-3.6) ng/ml CK/CKMB % Calc (0-3.0) Troponin I (0-0.045) ng/ml C-Reactive Protein (0-0.29) mg/dl Total Protein (6.4-8.2) gm/dl Albumin (3.4-5.0) gm/dl Globulin (2.5-4.0) gm/dl Albumin/Globulin Ratio (0.9-2) Procalcitonin (0-0.5) ng/ml Phenytoin (10-20) mcg/ml Imaging Data Radiologist's Impression: [facility] [place], [place] [phone] XRay Report Patient: CARMEN SINHA Admit Date: 11/30/19 MR#: [id number] Address1: [facility] MARGIE ROSI Acct ID:[id number] Address2: Date: 1935 [facility] Zip: [place] [address] Age: 83 Location: ED Sex: F Room/Bed: Att Phy: Diagnosis: AMS, DIARRHEA, NAUSEA, COUGH, ILLNESS Sulma Phy: Francesca Tillman MD Service Date: 11/30/19 Fam Phy: Interpreting Phy: Alf Cortez Admit Phy: Ordering Phy: Rachid Avila MD cc: ~ XR chest 1V portable HISTORY: 83 years-old Female SEPSIS acute sepsis COMPARISON: Chest radiographs 03/07/2019 TECHNIQUE: Supine portable AP view of the chest FINDINGS: Cardiac silhouette is enlarged, unchanged. Endotracheal tube overlies the midline terminating at the level of the gladys coursing towards the right mainstem bronchus. Enteric tube is present coursing below the diaphragm outside the [id number]. Calcified plaque of the thoracic aortic arch. Mild blunting of the costophrenic angles. Patchy left lung base opacities. No pneumothorax or overt pulmonary edema. Degenerative changes of the shoulders and spine. IMPRESSION: 1. Endotracheal tube terminates at the level of the gladys coursing towards the right mainstem bronchus. Retraction of approximately 3 cm with follow-up imaging recommended. 2. Enteric tube terminates below the diaphragm. 3. Patchy left lung base opacities are suggestive of atelectasis or pneumonia. ACT 112: Negative or not required by law. The above report was generated using voice recognition software. It may contain grammatical, syntax or spelling errors. Electronically signed by: Ramos Cortez M.D. 11/30/2019 4:35 PM Dictated: 11/30/19 1633 Transcribed: 11/30/19 1633 [place], [place] [phone] CT Scan Report Patient: CARMEN SINHA Date: 11/30/19 MR#: [id number]: Amber ARANDA Acct ID:[id number]: Date: 1935[facility] Zip: [place] [address] Age: 83Location: ED Sex: F Room/Bed: Att Phy:Diagnosis: AMS, DIARRHEA, NAUSEA, COUGH, ILLNESS Sulma Phy: Francesca Tillman, SYEDAervice Date: 11/30/19 Fam Phy:Interpreting Phy: Alf Cortez Admit Phy: Ordering Phy: Rachid Avila MD cc: ~ CT head/brain wo con CLINICAL HISTORY: 83 years-old Female with Pt c/o AMS. Acutely altered mental s tatus TECHNIQUE: Multiple axial CT images of the head were obtained without contrast. A dose lowering technique was utilized adhering to the principles of ALARA. CT DOSE: 638.56 mGycm COMPARISON: Head CT 06/27/2016 FINDINGS: No acute intracranial hemorrhage, midline shift, intracranial mass, hydrocephalus, territorial ischemia or abnormal extra-axial collection. Mild patchy white matter hypodensities suggest probable chronic microvascular ischemic disease. There is slightly worsened 10 mm area of low-attenuation within the left frontal lobe bocanegra radiata with 4 mm focus of ill-defined low- attenuation within the left lentiform nucleus from comparison study. The calvarium is intact. Endotracheal tube with nasopharyngeal secretions. Soft tissues are unremarkable. Prior right-sided cataract repair. The paranasal sinuses, mastoid air cells, and middle ear cavities are clear. IMPRESSION: 1. No acute intracranial hemorrhage or acute territorial infarct. 2. Chronic microvascular ischemic disease. 3. 10 mm area of low-attenuation within the bocanegra radiata of the left frontal lobe with ill-defined subcentimeter hypodense focus of the left lentiform nucleus appear to be new from prior study and are suggestive of an age- indeterminate lacunar infarcts. ACT 112: Negative or not required by law. The above report was generated using voice recognition software. It may contain grammatical, syntax or spelling errors. Electronically signed by: Ramos Cortez M.D. 11/30/2019 7:17 PM Dictated: 11/30/191912 Transcribed: 11/30/191912 [place], [place] [phone] CT Scan Report Patient: CARMEN SINHA LAdmit Date: 11/30/19 MR#: [id number]: Amber ARANDA Acct ID:[id number]: Date: 1935[facility] Zip: [place] [address] Age: 83Location: 1E Sex: F Room/Bed: [facility] Att Phy: Jonathan Zacarias MDDiagnosis: ANEMIC Sulma Phy: Francesca Tillman MDService Date: 11/30/19 Fam Phy:Interpreting Phy: Alf Cortez Admit Phy: Jonathan Zacarias MD Ordering Phy: Rachid Avila MD cc: ~ CT angio chest PE protocol CT DOSE: 554.73 mGycm HISTORY: 83 years-old Female with PE. Acute shortness of breath TECHNIQUE: Multiple CTA images of the chest were obtained after the intravenous administration of 116 ml Optiray 320. Coronal and sagittal MIPS were obtained from the axial data set and were submitted for review. All measurements were obtained according to NASCET criteria. A dose lowering technique was utilized adhering to the principles of ALARA. COMPARISON: Chest radiograph of same day, CTA chest 02/14/2016 FINDINGS: CTA: Moderate cardiomegaly. No pericardial effusion. A least moderate coronary artery calcifications. No thoracic aortic aneurysm or dissection. Mixed plaque of the proximal left subclavian artery results in approximately 50% luminal narrowing. The pulmonary artery is opacified to the level of the segmental branches and demonstrates no filling defects to suggest pulmonary thromboembolic disease. The distal segmental and the subsegmental branches are not well visualized secondary to respiratory motion artifact and contrast bolus timing. CT CHEST: Heterogeneous and mildly enlarged thyroid. No pathologically enlarged lymph nodes by CT size criteria. Endotracheal tube terminates 1.5 cm superior to the gladys coursing towards the right mainstem bronchus. Mild tracheobronchial secretions. Enteric tube is present with distal tip terminating in the mid gastric body. Small hiatal hernia. Dependent left greater than right bibasilar consolidative opacities. No pneumothorax, pleural effusion or overt pulmonary edema. Subsegmental nodular groundglass opacities are noted within the anterior segment right upper lobe adjacent to the minor fissure. With additional similar- appearing opacities noted within the right lower lobe, image 82 series 4. Mild t raction bronchiectasis of the lung bases with areas of pleural-parenchymal scarring. Calcified granuloma of the basal right lower lobe. No acute process of the imaged upper abdomen. Soft tissues are unremarkable. Degenerative changes of the shoulders and spine. Remote appearing mid and lower thoracic compression deformities, unchanged from comparison. IMPRESSION: 1. No evidence of pulmonary thromboembolic disease. 2. Repositioned endotracheal tube terminates 1.5 cm superior to the gladys. Ent lucia tube distal tip terminates in the mid gastric body 3. Subsegmental groundglass nodular opacities of the right upper and lower lobes are suggestive of an infectious or inflammatory pneumonitis 4. Bibasilar atelectasis with pleural parenchymal scarring and traction bronchiectasis 5. Mild tracheobronchial secretions 6. Cardiomegaly 7. Small hiatal hernia. ACT 112: Negative or not required by law. The above report was generated using voice recognition software. It may contain grammatical, syntax or spelling errors. Electronically signed by: Ramos Cortez M.D. 11/30/2019 7:31 PM Dictated: 11/30/191919 Transcribed: 11/30/191919 ECG Data Attestation: I personally reviewed and interpreted this ECG as follows: Indication: + altered mental status Rate (beats per minute): 86 Rhythm: + sinus rhythm ECG Intervals/blocks: + Prolonged QT and + Normal QT-c (485) ECG [place]: + Normal ECG ST segments: + T-wave inversions (anterior); no ST depression and no ST elevation Comparison ECG Date: from (03/05/2019) Change: no significant change Blood Pressure Blood Pressure Findings: Elevated blood pressure Blood Pressure Disposition: elevated BP felt to be situational MDM Narrative This is an 83-year-old female who presents emergency department complaining of seizures. Upon arrival to the emergency department the patient is seizing. She is hypoxic on room air. Due to the concern of the patient had an upper respiratory tract infection and is currently hypoxic the decision was made to intubate under Bocanegra precautions. This was done by anesthesia. In the meantime the patient was loaded with Keppra as well as phenytoin as her phenytoin level was found to be low. I did discuss the case with the hospitalist as well as the machine maintenance repairer. Impression & Plan Seizure, Hypoxia Discharge Plan Visit Data *Final* Discharge Date/Time: 11/30/19 19:05 Chief Complaint: Altered Mental Status Stated Complaint: AMS, DIARRHEA, NAUSEA, COUGH, ILLNESS ED Provider: Rachid Avila Discharge Problem: Seizure, Hypoxia Patient Disposition: Admitted As Inpatient Discharge Instructions Interventions: ED Discharge Assessment Last Done: 11/30/19 19:05
[2019-11-30] MEDS ORDERED: PROPOFOL IV STA ×4 (16:26→18:44)
[2019-11-30] MEDS ORDERED: PROPOFOL IV EMULSION 10 MG/ML 20 ML VIAL IV ONE (16:27)
[2019-11-30] MEDS ORDERED: SUCCINYLCHOLINE CHLORIDE 20 MG/ML 10 ML VIAL ONE (16:27)
[2019-11-30] MEDS ORDERED: ROCURONIUM BROMIDE 10 MG/ML 5 ML VIAL ONE (16:27)
[2019-11-30 16:29] LABS: Albumin Globulin Ratio 0.9 (0.9-2); Alkaline Phosphatase 106 U/L (45-117); Bilirubin,Total 0.2 mg/dl (0.2-1); Creatine Kinase 125 U/L (26-192); Creatine Kinase MB 1.4 ng/ml (0.5-3.6); Globulin 4.3 gm/dl (2.5-4.0); Troponin I < 0.015 ng/ml (0-0.045)
[2019-11-30] MEDS: propofoL 1,000 MG/100 ML VIAL IV SCH ×2 (16:30→23:05)
--- NOTE | 2019-11-30 16:36 | XRay Report ---
XR chest 1V portable HISTORY: 83 years-old Female SEPSIS acute sepsis COMPARISON: Chest radiographs 03/07/2019 TECHNIQUE: Supine portable AP view of the chest FINDINGS: Cardiac silhouette is enlarged, unchanged. Endotracheal tube overlies the midline terminating at the level of the gladys coursing towards the right mainstem bronchus. Enteric tube is present coursing be low the diaphragm outside the [id number]. Calcified plaque of the thoracic aortic arch. Mild blunt ing of the costophrenic angles. Patchy left lung base opacities. No pneumothorax or overt pulmonary e tru. Degenerative changes of the shoulders and spine. IMPRESSION: 1. Endotracheal tube terminates at the level of the gladys coursing towards the right mainstem bronch us. Retraction of approximately 3 cm with follow-up imaging recommended. 2. Enteric tube terminates below the diaphragm. 3. Patchy left lung base opacities are suggestive of atelectasis or pneumonia. ACT 112: Negative or not required by law. The above report was generated using voice recognition software. It may contain grammatical, syntax o r spelling errors. Electronically signed by: Ramos Cortez M.D. 11/30/2019 4:35 PM
--- NOTE | 2019-11-30 16:37 | Anesthesia Procedure Note ---
Anesthesia Procedure Note Intubation Note Vital Signs: vitals 130's/60's, HR 100, O2 sat 99 on nonrebreather (had been 83 on room air Patient that had witnessed seizure - in for "diarrhea and not feeling well for several days" needs airway protection due to seizure and resulting decrease level of consciousness Date of procedure: 11/30/19 Indication for intubation: Unable to protect airway Consent: Risk / Benefits Reviewed With: Emergency (ED did speak with family already) Monitors attached: Blood Pressure, EKG and Pulse Oximetry Time out completed: Yes Premedication: Propofol (mg) (150) Paralytic medication: Succinylcholine (mg) (100) Intubation technique: Adequate preoxygenation Equipment: Glidescope (3) View: Grade 1 Endotracheal tube: Oral, 8.0 and Tube secured @ cm (22) Attempts: 1 Tube placement confirmation: Positive CO2 detection Post-procedure: Pt hemodynamically stable
[2019-11-30] MEDS ORDERED: OPTIRAY 320 125ml IV PRN (17:00)
[2019-11-30 17:10] LABS: Ferritin 52.8 ng/ml (8-388)
--- NOTE | 2019-11-30 17:23 | History & Physical Report ---
Date of Service November 30, 2019 Assessment & Plan (1) Acute respiratory failure with hypoxia: -Admit to ICU -Continue airborne and contact precautions with COVID-19 rule out -Intubated in the ER by anesthesia team -Patient presenting with respiratory-like symptoms x1 week including cough, kiesha rtness of breath, runny nose, sore throat, family reports she has been afebrile throughout the week. Her son lives with her who has continue to work and is around others. No known COVID positive contacts. -Checking COVID-19, biofire -Follow UA, UCx -Follow BCx x 2 -continue on azithromycin, vancomycin, and cefepime IV -Initial lactic acid elevated at 12.53, recheck in process -Inflammatory markers evaluated include: WCY=323, ferritin=52.8, procal = <0.05, CRP= <0.29, ESR is elevated at 72. -Checking CT PE, awaiting results (2) Asthma: -History of such, not on home inhalers per daughter who confirmed the medication list with myself. (3) Seizure disorder: -Follows with Dr. Padilla, neurology as an outpatient - consult for rigo recommendation -Convert Dilantin and Keppra dosing to IV form, continue, was loaded with Keppra in the ER -CT of the head in process -Seizure precautions -dilantin level subtherapeutic, keppra level in process -it is possible that seizure threshold was lowered secondary to acute illness and with her being subtherapeutic on medications made her more susceptible to having a seizure today. (4) Type 2 diabetes mellitus: - Last A1C = 6.2 in March 2019, will recheck - Holding PO metformin - glycemic pharmacy consultation with IV abx (5) Dyslipidemia: -Intubated, presume p.o. meds able (6) Vitamin D deficiency: (7) Osteoporosis: (8) Osteoarthritis: -Stable, noted -May continue Voltaren gel for pain relief once patient is no longer intubated/sedated (9) Hypothyroidism: -Continue levothyroxine (10) DVT prophylaxis: -Teds, heparin subcu CODE: FULL - Discussed with the daughter over the phone, she would like her mother to be a full code, if in fact her health status would deteriorate or become a terminal situation she would not want her mother to have advanced procedures or be on life prolonging measures such as ventilation. Would consider Palliative care consultation if needed pending patient course. Prognosis and mortality was discussed with the patient's daughter if she is COVID-19 positive. She understood and all her questions and concerns were answered. I encouraged her to be the spokesperson for the family as she mentioned having several siblings who would want to speak to a provider she was agreeable to this. Disposition: Patient from home, admitted to the ICU, likely to remain there for at least 2 days, intubated on arrival. 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 Yesterday she reported feeling "shaky" to her daughter and son. They had concerns for her dilantin level being too high as she previously had a toxic level last fall. She follows with neurology, Dr. Padilla. Before being able to get a telemedicine consult she had a seizure this morning as described below. Her son lives her, and this morning he was out of the house working for a few hours. When he came home, he saw her having a seizure , shaking, and unresponsive when he tried to talk with her and called EMS. Pt son works at [employer] in [place] doing food prep in the kitchen with a few other people. Unknown if the pt took her morning medications today. At baseline she takes dilantin 100 mg QAM and 200 mg QPM and keppra 750 mg BID. She has been compliant with taking medication in the past. Allergies Allergy/AdvReac Type Severity Reaction Status Date / Time allopurinol [From Zyloprim] Allergy Unknown Unknown Verified 08/24/19 16:36 levofloxacin [From Levaquin] Allergy Unknown Unknown Verified 08/24/19 16:36 lorazepam Allergy Unknown Unknown Verified 08/24/19 16:36 nortriptyline Allergy Unknown Unknown Verified 08/24/19 16:36 Opioids - Morphine Analogues Allergy Unknown Unknown Verified 08/24/19 16:36 peanut Allergy Unknown SNEEZE, Verified 08/24/19 16:36 COUGH Penicillins Allergy Unknown Unknown Verified 08/24/19 16:36 risedronate sodium Allergy Unknown Unknown Verified 08/24/19 16:36 [From Actonel] Sulfa (Sulfonamide Allergy Unknown Unknown Verified 08/24/19 16:36 Antibiotics) Home Medications Home Medications Medication Instructions Recorded Confirmed Type atorvastatin 20 mg tablet 20 mg PO QAM #90 tab 01/29/19 11/30/19 History metformin 500 mg tablet 500 mg PO BID #180 tab 01/29/19 11/30/19 History levetiracetam 750 mg tablet 750 mg PO BID 30 Days #60 tab 07/29/19 11/30/19 Rx diclofenac sodium 1 % topical gel 4 gm TOPICAL QID PRN #100 gm 09/29/19 11/30/19 Rx phenytoin sodium extended 100 mg See Rx Instructions PO .COMPLEX 11/03/19 11/30/19 Rx capsule #90 cap levothyroxine 50 mcg PO QAM 11/30/19 11/30/19 History naproxen 375 mg PO BID PRN 11/30/19 11/30/19 History Past Med/Surg History Medical History (Updated 11/30/19 @ 18:05 by Karmen Ramesh PA-C) Acid reflux Asthma (Acute) Dyslipidemia (Chronic) Hiatal hernia History of shingles (~2019) History of stroke 20 YRS AGO, MEMORY PROBLEM AFTER AND TROUBLE SPELLING Hypothyroidism (Chronic) Osteoarthritis (Chronic) Osteoporosis (Acute) Seizure disorder (Chronic) Type 2 diabetes mellitus (Chronic) Vitamin D deficiency (Acute) Surgical History History of ankle surgery L X2 History of colonoscopy History of surgery on left wrist Family History Father Hypertension Mother Diabetes Myocardial infarction Brother Lung disease Diabetes Brother Diabetes Brother Diabetes Brother Diabetes Brother Diabetes Social History Preferred Language: Bruneian Communication Ability: Effective Hearing Ability: Normal Airport Planner Required: No Beliefs That Will Affect Care: None marital status: / Current Living Situation: Other Current Living Situation Comment: SON Feels Safe at Home: Yes Smoking Status: Unknown if ever smoked Hx Alcohol Use: No Hx Substance Use: No Seatbelt Use: always Sunscreen Use: Yes Review of Systems Review of Systems: Other (As per HPI per daughter. Not obtained from patient herself due to being intubated on arrival, COVID-19 rule out) Physical Exam Physical Exam: PE not performed by myself due to COVID-19 r/o. Please refer to certified pedorthotist documentation. Results & Data Results & Data ([facility]) Vital Signs (Past 12 Hours) Vital Signs Pulse Resp BP Pulse Ox 11/30/19 15:40 73 16 167/61 H 83 L Laboratory Results Laboratory Results - last 24 hr 11/30/19 11/30/19 11/30/19 15:47 15:47 15:47 WBC 11.11 H RBC 4.02 L Hgb 12.6 POC Hgb Hct 39.0 POC Hct MCV 97.0 MCH 31.3 MCHC 32.3 RDW Std Deviation 47.7 H RDW Coeff of Ana 13.3 Plt Count 331 MPV 9.3 Immature Gran % (Auto) 0.4 Neut % (Auto) 50.9 Lymph % (Auto) 37.5 [place] % (Auto) 9.6 Eos % (Auto) 1.4 Baso % (Auto) 0.2 Immature Gran # (Auto) 0.04 H Neut # (Auto) 5.66 Lymph # (Auto) 4.17 H [place] # (Auto) 1.07 H Eos # (Auto) 0.15 Baso # (Auto) 0.02 ESR PT 10.8 INR 1.0 APTT 24.4 PTT Ratio 0.9 POC Sodium Sodium 133 L POC Potassium Potassium 3.4 L POC Chloride Chloride 102 Carbon Dioxide 16 L POC Total CO2 Anion Gap 15.0 H POC Anion Gap POC BUN BUN 8 Creatinine 1.00 POC Creatinine Est Cr Clr Drug Dosing Not Reportable Est GFR ( Amer) 61.2 Est GFR (Non-Af Amer) 52.8 BUN/Creatinine Ratio 7.5 L Glucose 180 H POC Glucose (other) POC Lactic Acid Mariano Lactate Calcium 9.3 POC Ioniz Calcium Grace Magnesium 2.1 Ferritin Total Bilirubin 0.2 AST 14 L ALT 16 Alkaline Phosphatase 106 Lactate Dehydrogenase Total Creatine Kinase 125 CK-MB (CK-2) 1.4 CK/CKMB % Calc 1.1 Troponin I < 0.015 C-Reactive Protein Total Protein 8.0 Albumin 3.7 Globulin 4.3 H Albumin/Globulin Ratio 0.9 Procalcitonin Phenytoin Levetiracetam Influenza Type A (PCR) Influenza Type B (PCR) SARS-CoV-2 RNA (RT-PCR) 11/30/19 11/30/19 11/30/19 15:47 15:47 15:47 WBC RBC Hgb POC Hgb Hct POC Hct MCV MCH MCHC RDW Std Deviation RDW Coeff of Ana Plt Count MPV Immature Gran % (Auto) Neut % (Auto) Lymph % (Auto) [place] % (Auto) Eos % (Auto) Baso % (Auto) Immature Gran # (Auto) Neut # (Auto) Lymph # (Auto) [place] # (Auto) Eos # (Auto) Baso # (Auto) ESR PT INR APTT PTT Ratio POC Sodium Sodium POC Potassium Potassium POC Chloride Chloride Carbon Dioxide POC Total CO2 Anion Gap POC Anion Gap POC BUN BUN Creatinine POC Creatinine Est Cr Clr Drug Dosing Est GFR ( Amer) Est GFR (Non-Af Amer) BUN/Creatinine Ratio Glucose POC Glucose (other) POC Lactic Acid Mariano Lactate Calcium POC Ioniz Calcium Grace Magnesium Ferritin Total Bilirubin AST ALT Alkaline Phosphatase Lactate Dehydrogenase Total Creatine Kinase CK-MB (CK-2) CK/CKMB % Calc Troponin I C-Reactive Protein Total Protein Albumin Globulin Albumin/Globulin Ratio Procalcitonin < 0.05 Phenytoin 3.3 L Levetiracetam Pending Influenza Type A (PCR) Influenza Type B (PCR) SARS-CoV-2 RNA (RT-PCR) 11/30/19 11/30/19 11/30/19 15:47 15:47 15:47 WBC RBC Hgb POC Hgb Hct POC Hct MCV MCH MCHC RDW Std Deviation RDW Coeff of Ana Plt Count MPV Immature Gran % (Auto) Neut % (Auto) Lymph % (Auto) [place] % (Auto) Eos % (Auto) Baso % (Auto) Immature Gran # (Auto) Neut # (Auto) Lymph # (Auto) [place] # (Auto) Eos # (Auto) Baso # (Auto) ESR 72 H PT INR APTT PTT Ratio POC Sodium Sodium POC Potassium Potassium POC Chloride Chloride Carbon Dioxide POC Total CO2 Anion Gap POC Anion Gap POC BUN BUN Creatinine POC Creatinine Est Cr Clr Drug Dosing Est GFR ( Amer) Est GFR (Non-Af Amer) BUN/Creatinine Ratio Glucose POC Glucose (other) POC Lactic Acid Mariano Lactate Calcium POC Ioniz Calcium Grace Magnesium Ferritin 52.8 Total Bilirubin AST ALT Alkaline Phosphatase Lactate Dehydrogenase 182 Total Creatine Kinase CK-MB (CK-2) CK/CKMB % Calc Troponin I C-Reactive Protein < 0.29 Total Protein Albumin Globulin Albumin/Globulin Ratio Procalcitonin Phenytoin Levetiracetam Influenza Type A (PCR) Influenza Type B (PCR) SARS-CoV-2 RNA (RT-PCR) 11/30/19 11/30/19 11/30/19 15:53 15:57 17:10 WBC RBC Hgb POC Hgb 13.6 Hct POC Hct 40 MCV MCH MCHC RDW Std Deviation RDW Coeff of Ana Plt Count MPV Immature Gran % (Auto) Neut % (Auto) Lymph % (Auto) [place] % (Auto) Eos % (Auto) Baso % (Auto) Immature Gran # (Auto) Neut # (Auto) Lymph # (Auto) [place] # (Auto) Eos # (Auto) Baso # (Auto) ESR PT INR APTT PTT Ratio POC Sodium 134 L Sodium POC Potassium 3.8 Potassium POC Chloride 102 Chloride Carbon Dioxide POC Total CO2 19 L Anion Gap POC Anion Gap 19.0 POC BUN 8 BUN Creatinine POC Creatinine 0.7 Est Cr Clr Drug Dosing Est GFR ( Amer) Est GFR (Non-Af Amer) BUN/Creatinine Ratio Glucose POC Glucose (other) 187 H POC Lactic Acid Mariano 12.53 H Lactate Calcium POC Ioniz Calcium Grace 1.19 Magnesium Ferritin Total Bilirubin AST ALT Alkaline Phosphatase Lactate Dehydrogenase Total Creatine Kinase CK-MB (CK-2) CK/CKMB % Calc Troponin I C-Reactive Protein Total Protein Albumin Globulin Albumin/Globulin Ratio Procalcitonin Phenytoin Levetiracetam Influenza Type A (PCR) Neg for Influ A Influenza Type B (PCR) Neg for Influ B SARS-CoV-2 RNA (RT-PCR) 11/30/19 11/30/19 17:10 18:00 WBC RBC Hgb POC Hgb Hct POC Hct MCV MCH MCHC RDW Std Deviation RDW Coeff of Ana Plt Count MPV Immature Gran % (Auto) Neut % (Auto) Lymph % (Auto) [place] % (Auto) Eos % (Auto) Baso % (Auto) Immature Gran # (Auto) Neut # (Auto) Lymph # (Auto) [place] # (Auto) Eos # (Auto) Baso # (Auto) ESR PT INR APTT PTT Ratio POC Sodium Sodium POC Potassium Potassium POC Chloride Chloride Carbon Dioxide POC Total CO2 Anion Gap POC Anion Gap POC BUN BUN Creatinine POC Creatinine Est Cr Clr Drug Dosing Est GFR ( Amer) Est GFR (Non-Af Amer) BUN/Creatinine Ratio Glucose POC Glucose (other) POC Lactic Acid Mariano Lactate 2.1 H* Calcium POC Ioniz Calcium Grace Magnesium Ferritin Total Bilirubin AST ALT Alkaline Phosphatase Lactate Dehydrogenase Total Creatine Kinase CK-MB (CK-2) CK/CKMB % Calc Troponin I C-Reactive Protein Total Protein Albumin Globulin Albumin/Globulin Ratio Procalcitonin Phenytoin Levetiracetam Influenza Type A (PCR) Influenza Type B (PCR) SARS-CoV-2 RNA (RT-PCR) Pending Code Status & VTE Plan Code Status Full code-discussed with the patient's daughter over the phone. VTE Prophylaxis Plan VTE Prophylaxis will be ordered: Yes Supervising Physician Co-Signing Physician Notes Attending Attestation and Admission Note: Chart reviewed in detail, admission care plan d/w PA Afua Ramesh. I agree w/ the villarreal components of her documentation. 83yo female with known seizure d/o - on dilantin & keppra for such - hypothyroidism, T2DM, ? asthma - presenting with witnessed seizure at home and altered MS 2nd to such. Upon arrival was hypoxic, intubation team was called, and she was intubated for airway protection. Initial cxr with patchy left basilar infiltrates. Ms Ramesh obtained history from the pt's daughter. Apparently Ms Swift has had respiratory symptoms for about 1 week. Started to feel better, but then last pm was "shaky". No fever by report. No travel or COVID-19 exposure. PMH, PSH, allergies, meds, sochx, famhx - reviewed Physical exam deferred by myself and Ms Ramesh given pending COVID-19 status and pending ICU admission labs - ESR 72 WBC 11.1 markedly elevated lactate (>10) Cr 1 dilantin level 3 cxr - left basilar infiltrates A/P: 1. acute hypoxic respiratory failure - in the setting of seizure and likely left lower lobe pneumonia 2. LLL pneumonia - aspiration vs community-acquired 3. witnessed seizure at home; known seizure d/o on anti-epileptic medications; loaded with keppra IV in ER; suspect she will NOT maintain therapeutic dilantin levels after this admission; may need additional titration of keppra or another agent in mena of dilantin; defer to ICU attending and neurology 4. subtherapeutic dilantin level 5. recent respiratory illness - COVID-19 test pending; airborne precautions in meantime; treat for suspected LLL pneumonia as seen on CXR 6. if any fever, worsening neurological symptoms, signs of meningitis, etc consider LP but defer for now since recent illness appeared respiratory in nature 7. check biofire other plans per ICU attending and Ms Domitila Zacarias MD PG Care Time/CCT Total # of Minutes Spent Total Time Spent with Patient: Total time spent is greater than 50% in coordination of care (as documented) at patient's floor/unit and/or counseling patient: Coding Level of Care Code 26349 Initial Inpt Care Lvl 3 Diagnoses Acute respiratory failure with hypoxia J96.01 Asthma J45.909 Seizure disorder G40.909 Type 2 diabetes mellitus E11.9 Dyslipidemia E78.5 Vitamin D deficiency E55.9 Osteoporosis M81.0 Osteoarthritis M17.12 Laterality: left Osteoarthritis location: knee Osteoarthritis type: primary Hypothyroidism E03.9 Hypothyroidism type: acquired DVT prophylaxis Z29.9 (1) Hypothyroidism Hypothyroidism type: acquired Qualified Code(s): E03.9 - Hypothyroidism, unspecified (2) Osteoarthritis Laterality: left Osteoarthritis location: knee Osteoarthritis type: primary Qualified Code(s): M17.12 - Unilateral primary osteoarthritis, left knee
[2019-11-30 17:30] LABS: C Reactive Protein < 0.29 mg/dl (0-0.29)
[2019-11-30] MEDS ORDERED: VECURONIUM BROMIDE 10 MG VIAL IV ONE (17:30)
[2019-11-30] MEDS ORDERED: PHENYTOIN IV STA (17:34)
[2019-11-30] MEDS ORDERED: SODIUM CHLORIDE 0.9% 10ML FLUSH IV STA (17:34)
[2019-11-30 17:54] LABS: Influenza A virus by PCR Neg for Influ A (Neg); Influenza B virus by PCR Neg for Influ B (Neg)
[2019-11-30] MEDS ORDERED: fentaNYL citrate 100 MCG/2 ML VIAL IV ONE (18:30)
--- NOTE | 2019-11-30 19:19 | CT Scan Report ---
CT head/brain wo con CLINICAL HISTORY: 83 years-old Female with Pt c/o AMS. Acutely altered mental status TECHNIQUE: Multiple axial CT images of the head were obtained without contrast. A dose lowering tech nique was utilized adhering to the principles of ALARA. CT DOSE: 638.56 mGycm COMPARISON: Head CT 06/27/2016 FINDINGS: No acute intracranial hemorrhage, midline shift, intracranial mass, hydrocephalus, territorial ischem ia or abnormal extra-axial collection. Mild patchy white matter hypodensities suggest probable chroni c microvascular ischemic disease. There is slightly worsened 10 mm area of low-attenuation within the left frontal lobe bocanegra radiata with 4 mm focus of ill-defined low-attenuation within the left lent iform nucleus from comparison study. The calvarium is intact. Endotracheal tube with nasopharyngeal secretions. Soft tissues are unremarka ble. Prior right-sided cataract repair. The paranasal sinuses, mastoid air cells, and middle ear cavi ties are clear. IMPRESSION: 1. No acute intracranial hemorrhage or acute territorial infarct. 2. Chronic microvascular ischemic disease. 3. 10 mm area of low-attenuation within the bocanegra radiata of the left frontal lobe with ill-defined subcentimeter hypodense focus of the left lentiform nucleus appear to be new from prior study and are suggestive of an age-indeterminate lacunar infarcts. ACT 112: Negative or not required by law. The above report was generated using voice recognition software. It may contain grammatical, syntax o r spelling errors. Electronically signed by: Ramos Cortez M.D. 11/30/2019 7:17 PM
--- NOTE | 2019-11-30 19:32 | CT Scan Report ---
CT angio chest PE protocol CT DOSE: 554.73 mGycm HISTORY: 83 years-old Female with PE. Acute shortness of breath TECHNIQUE: Multiple CTA images of the chest were obtained after the intravenous administration of 116 ml Optiray 320. Coronal and sagittal MIPS were obtained from the axial data set and were submitted for review. All measurements were obtained according to NASCET criteria. A dose lowering technique w as utilized adhering to the principles of ALARA. COMPARISON: Chest radiograph of same day, CTA chest 02/14/2016 FINDINGS: CTA: Moderate cardiomegaly. No pericardial effusion. A least moderate coronary artery calcifications. No t horacic aortic aneurysm or dissection. Mixed plaque of the proximal left subclavian artery results in approximately 50% luminal narrowing. The pulmonary artery is opacified to the level of the segmental branches and demonstrates no filling defects to suggest pulmonary thromboembolic disease. The distal segmental and the subsegmental branches are not well visualized secondary to respiratory motion lelo fact and contrast bolus timing. CT CHEST: Heterogeneous and mildly enlarged thyroid. No pathologically enlarged lymph nodes by CT size criteria . Endotracheal tube terminates 1.5 cm superior to the gladys coursing towards the right mainstem bron chus. Mild tracheobronchial secretions. Enteric tube is present with distal tip terminating in the mi d gastric body. Small hiatal hernia. Dependent left greater than right bibasilar consolidative opacit ies. No pneumothorax, pleural effusion or overt pulmonary edema. Subsegmental nodular groundglass opa cities are noted within the anterior segment right upper lobe adjacent to the minor fissure. With add itional similar-appearing opacities noted within the right lower lobe, image 82 series 4. Mild tracti on bronchiectasis of the lung bases with areas of pleural-parenchymal scarring. Calcified granuloma o f the basal right lower lobe. No acute process of the imaged upper abdomen. Soft tissues are unremarkable. Degenerative changes of the shoulders and spine. Remote appearing mid and lower thoracic compression deformities, unchanged f rom comparison. IMPRESSION: 1. No evidence of pulmonary thromboembolic disease. 2. Repositioned endotracheal tube terminates 1.5 cm superior to the gladys. Enteric tube distal tip t erminates in the mid gastric body 3. Subsegmental groundglass nodular opacities of the right upper and lower lobes are suggestive of an infectious or inflammatory pneumonitis 4. Bibasilar atelectasis with pleural parenchymal scarring and traction bronchiectasis 5. Mild tracheobronchial secretions 6. Cardiomegaly 7. Small hiatal hernia. ACT 112: Negative or not required by law. The above report was generated using voice recognition software. It may contain grammatical, syntax o r spelling errors. Electronically signed by: Ramos Cortez M.D. 11/30/2019 7:31 PM
[2019-11-30] MEDS ORDERED: VANCOMYCIN CONSULT ACTIVE PRN (19:50)
[2019-11-30] MEDS ORDERED: PHENYTOIN SODIUM ER 100 MG CAP PO SCH ×3 (19:50)
[2019-11-30] MEDS ORDERED: PHARMACY GLYCEMIC MGMT CONSULT PRN (19:57)
[2019-11-30] MEDS ORDERED: PATIENT'S HEIGHT AND/OR WEIGHT NEEDED SCH (20:00)
--- NOTE | 2019-11-30 20:18 | Critical Care Consultation ---
Date of Consultation November 30, 2019 Assessment & Plan (1) Admitted to intensive care unit: Reason Critically Ill: 83-year-old female with acute hypoxic respiratory failure status post seizure requiring endotracheal intubation and close monitoring status post intubation. NEURO - * CAM ICU: Unable to assess secondary to level of sedation. * Sedation with propofol drip. * Head CT without acute findings. * Seizure disorder: * Patient presented after witnessed seizure with tonic clonic activity. * Loaded with phenytoin and Keppra in the emergency department. * Phenytoin level appears subtherapeutic. * Monitor for breakthrough seizure activity. * Continue appropriate dosing of antiseizure medications throughout stay. CARDIAC/VASCULAR - * No documented history of cardiovascular disease. * Monitor closely on telemetry. RESPIRATORY - * Acute respiratory failure with hypoxia: * Favors postictal state with associated hypoxia given historical information. * Patient with slight infiltrative changes on chest CT. * Patient on minimal ventilator settings with an FiO2 of 30% and PEEP of 5. This is not consistent with ARDS associated with COVID-19. * Agree with continued antibiotics for possible aspiration coverage. GI/NUTRITION - * Prophylaxis: Famotidine RENAL/LYTES - * Hypokalemia * Replace as needed. * IVF: Normosol at 80 mL's per hour - * Arnold in place - Strict I&Os. ENDO - * History of type 2 diabetes and hypothyroidism. * BSGs per unit protocol. ISS --> gtt per unit policy. HEME - * Stable H&H. ID - * Initial concerns for possible respiratory distress secondary to COVID-19. * Intubated safely by anesthesia. * Patient covered with antibiotics secondary to possible aspiration. This is likely a more appropriate source of the patient's respiratory distress/failure as she may have aspirated in the setting of recent seizure. * She is with leukocytosis. She is without lymphopenia. LDH is nonelevated. CRP is not elevated. COVID-19 PCR is sent and pending. * In light of current pandemic, I am prone to err on the side of caution and await PCR testing before removing complete precautions. LINES/IV ACCESS - * PIVs x2 * ET tube * Arnold DVT PROPHYLAXIS - * Heparin * SCDs I have personally spent 45 minutes of critical care time in the direct management of this patient. This is a life/limb threatening event. This includes time spent evaluating patient, direct bedside care, chart review, placing orders, interpretation of diagnostic studies, discussion with consultants, patient, and family members, as well as other required patient management activities. This time is exclusive of all separately billable procedures, and teaching time and separate from and in addition to any other critical care service time. Thank you for allowing us to participate in the care of this patient. Please refer to my attending physician's documentation for any further recommendations. (2) Acute respiratory failure with hypoxia: (3) Seizure disorder: (4) Type 2 diabetes mellitus: (5) Hypothyroidism: (6) Dyslipidemia: History of Present Illness Attending Physician: Jonathan Zacarias History of Present Illness Patient is an 83-year-old female with a reported past medical history of seizure disorder who was brought to the emergency department via EMS after a witnessed seizure with tonic/clonic activity noted by the patient's son. Apparently, the patient was also reported having some shortness of breath-like symptoms over the past week as well as a dry cough. She has no known sick contacts. She has not been febrile to family's knowledge. Patient required emergent endotracheal intubation upon arrival in the emergency department as she was having oxygen saturations in the 80s and did not appear to be protecting her airway. Patient was noted to have a slight leukocytosis. She is not lymphopenic. LDH is within normal limits. No significant elevation of liver enzymes. Chest x-ray without significant infiltrative changes. Requiring minimal vent settings. Upon arrival in the ICU, the patient is pleasantly sedated. She is unable to contribute to HPI. Allergies Allergy/AdvReac Type Severity Reaction Status Date / Time allopurinol [From Zyloprim] Allergy Unknown Unknown Verified 08/24/19 16:36 levofloxacin [From Levaquin] Allergy Unknown Unknown Verified 08/24/19 16:36 lorazepam Allergy Unknown Unknown Verified 08/24/19 16:36 nortriptyline Allergy Unknown Unknown Verified 08/24/19 16:36 Opioids - Morphine Analogues Allergy Unknown Unknown Verified 08/24/19 16:36 peanut Allergy Unknown SNEEZE, Verified 08/24/19 16:36 COUGH Penicillins Allergy Unknown Unknown Verified 08/24/19 16:36 risedronate sodium Allergy Unknown Unknown Verified 08/24/19 16:36 [From Actonel] Sulfa (Sulfonamide Allergy Unknown Unknown Verified 08/24/19 16:36 Antibiotics) Home Medications Home Medications Medication Instructions Recorded Confirmed Type atorvastatin 20 mg tablet 20 mg PO QAM #90 tab 01/29/19 11/30/19 History metformin 500 mg tablet 500 mg PO BID #180 tab 01/29/19 11/30/19 History levetiracetam 750 mg tablet 750 mg PO BID 30 Days #60 tab 07/29/19 11/30/19 Rx diclofenac sodium 1 % topical gel 4 gm TOPICAL QID PRN #100 gm 09/29/19 11/30/19 Rx phenytoin sodium extended 100 mg See Rx Instructions PO .COMPLEX 11/03/19 11/30/19 Rx capsule #90 cap levothyroxine 50 mcg PO QAM 11/30/19 11/30/19 History naproxen 375 mg PO BID PRN 11/30/19 11/30/19 History Patient History Medical History Acid reflux Asthma (Acute) Dyslipidemia (Chronic) Hiatal hernia History of shingles (~2019) History of stroke 20 YRS AGO, MEMORY PROBLEM AFTER AND TROUBLE SPELLING Hypothyroidism (Chronic) Osteoarthritis (Chronic) Osteoporosis (Acute) Seizure disorder (Chronic) Type 2 diabetes mellitus (Chronic) Vitamin D deficiency (Acute) Surgical History History of ankle surgery L X2 History of colonoscopy History of surgery on left wrist Family History Father Hypertension Mother Diabetes Myocardial infarction Brother Lung disease Diabetes Brother Diabetes Brother Diabetes Brother Diabetes Brother Diabetes Social History Preferred Language: Cymro Communication Ability: Effective Hearing Ability: Normal English Composition Instructor Required: No Beliefs That Will Affect Care: None marital status: / Current Living Situation: Other Current Living Situation Comment: mech vent/ sedated- unable to obtain Feels Safe at Home: Yes Smoking Status: Unknown if ever smoked Hx Alcohol Use: No Hx Substance Use: No Seatbelt Use: always Sunscreen Use: Yes Review of Systems Review of Systems: Unobtainable due to cognitive status Physical Exam Physical Exam: VITAL SIGNS - Vital signs and nursing notes were reviewed. GENERAL - 83-year-old female appearing her stated age who is in no acute distress. Intubated and sedated. SKIN - Without rashes. HEAD - NC/AT. EYES - PERRL bilaterally. Sclera anicteric. Palpebral conjunctiva pink and moist with no injection noted. EARS - No deformities of external structures noted on gross examination bilaterally. NOSE - Midline and without cyanosis. No epistaxis or purulent drainage noted. MOUTH/OROPHARYNX - ET Tube in place. Without perioral cyanosis. Buccal mucosa pink and moist and without leukoplakia. NECK - Supple to palpation. LUNGS - Chest wall symmetric without accessory muscle use, intercostals retractions, or central cyanosis. Normal vesicular breath sounds CTA B/L. No wheezes, rales, or rhonchi appreciated. CARDIAC - RRR with S1/S2. No murmur, rubs, or gallops appreciated. ABDOMEN - Abdominal contour obese without pulsations or visible masses. BS normoactive all four quadrants. No tenderness, palpable masses, hepat osplenomegaly, or ascites noted. EXTREMITIES - No clubbing or peripheral cyanosis. No pretibial edema present. +3/5 radial and dorsalis pedis pulses palpated throughout. NEUROLOGIC - No focal neurological deficits. Unable to assess fully secondary to patient's current state of sedation. Results & Data Results & Data ([facility]) Vital Signs (Past 12 Hours) Vital Signs Temp Pulse Pulse Resp BP BP Pulse Ox 11/30/19 19:51 36.8 C 106 H 25 H 170/107 H 99 11/30/19 19:35 99 H 98 11/30/19 19:30 97 H 99 11/30/19 19:27 99 H 170/107 H 100 11/30/19 19:25 96 H 100 11/30/19 18:40 100 11/30/19 18:36 91 H 17 100 11/30/19 18:35 76 16 150/72 H 99 11/30/19 18:30 91 H 15 97 11/30/19 18:26 81 7 L 99 11/30/19 18:25 80 20 141/70 H 99 11/30/19 18:22 81 15 136/80 99 11/30/19 18:20 87 22 98 11/30/19 18:16 88 18 132/68 99 11/30/19 18:15 92 H 22 96 11/30/19 18:10 92 H 14 99 11/30/19 18:06 82 24 98 11/30/19 18:05 83 19 132/82 96 11/30/19 18:00 83 19 97 11/30/19 17:55 117 H 15 100 11/30/19 17:50 122 H 19 99 11/30/19 17:48 116 H 16 188/88 H 99 11/30/19 17:46 114 H 22 98 11/30/19 17:45 107 H 20 196/118 H 98 11/30/19 17:41 105 H 16 100 11/30/19 17:40 100 H 16 190/87 H 100 11/30/19 17:36 102 H 16 99 11/30/19 17:35 100 H 16 189/86 H 99 11/30/19 17:31 94 H 16 99 11/30/19 17:30 99 H 16 189/91 H 100 11/30/19 17:26 96 H 16 100 11/30/19 17:25 96 H 18 182/106 H 100 11/30/19 17:21 96 H 16 182/92 H 100 11/30/19 17:20 96 H 16 100 11/30/19 17:16 87 16 155/91 H 100 11/30/19 17:15 80 16 100 11/30/19 17:11 79 16 99 11/30/19 17:10 77 16 114/63 99 11/30/19 17:06 79 16 109/53 L 97 11/30/19 17:05 78 16 98 11/30/19 17:00 91 H 23 123/99 99 11/30/19 16:56 90 14 99 11/30/19 16:55 86 16 124/64 99 11/30/19 16:50 87 17 102/50 L 98 11/30/19 16:45 91 H 24 99 11/30/19 16:41 95 H 21 98 11/30/19 16:40 91 H 24 122/56 L 96 11/30/19 16:38 91 H 17 124/62 97 11/30/19 16:35 120 H 19 96 11/30/19 16:30 119 H 18 98 11/30/19 16:28 98 11/30/19 16:25 97 H 19 99 11/30/19 16:21 84 13 100 11/30/19 16:20 83 16 136/72 99 11/30/19 16:16 93 H 18 99 11/30/19 16:15 93 H 22 149/99 H 99 11/30/19 16:12 89 16 168/83 H 99 11/30/19 16:11 99 H 18 100 11/30/19 16:10 104 H 16 154/120 H 99 11/30/19 16:09 103 H 18 156/87 H 99 11/30/19 16:08 94 11/30/19 16:05 108 H 15 99 11/30/19 16:00 106 H 18 98 11/30/19 15:55 113 H 29 H 98 11/30/19 15:51 95 H 19 136/66 97 11/30/19 15:50 92 H 19 98 11/30/19 15:45 87 18 135/75 100 11/30/19 15:41 67 16 100 11/30/19 15:40 74 15 167/61 H 100 Coding Level of Care Code Critical Care 1st 30-74 mins Diagnoses Admitted to intensive care unit Z78.9 Acute respiratory failure with hypoxia J96.01 Seizure disorder G40.909 Type 2 diabetes mellitus E11.9 Hypothyroidism E03.9 Hypothyroidism type: acquired Dyslipidemia E78.5 Time Spent (min) 45 (1) Hypothyroidism Hypothyroidism type: acquired Qualified Code(s): E03.9 - Hypothyroidism, unspecified
[2019-11-30] MEDS ORDERED: PROPOFOL BOLUS FROM BAG IV STA (20:20)
[2019-11-30 20:21] LABS: Base Excess ABG -4.5 mEq/L (-9-1.8); HCO3 ABG 19 mmol/L (19-24); Oxygen Saturation ABG 98.3 % (90-95); PCO2 ABG 32 mmHg (35-46); PO2 ABG 113 mmHg (80-95)
[2019-11-30 20:22] LABS: Allen Test POS (Pos)
[2019-11-30] MEDS ORDERED: PHENYTOIN 200 MG in SYRINGE 0 ML IV SCH (20:30)
[2019-11-30] MEDS ORDERED: SODIUM CHLORIDE 0.9% 10ML FLUSH IV SCH (20:30)
[2019-11-30] MEDS ORDERED: GLUCOSE 40% GEL 15 GM TUBE PO PRN (20:45)
[2019-11-30] MEDS ORDERED: DEXTROSE 50% 50 ML SYRINGE IV PRN (20:45)
[2019-11-30] MEDS ORDERED: GLUCAGON FOR INJ 1 MG VIAL SQ PRN (20:45)
[2019-11-30] MEDS ORDERED: GLUCOSE 10 TABS/TUBE PO PRN (20:45)
[2019-11-30] MEDS ORDERED: CARBOHYDRATES FOR HYPOGLYCEMIA PO PRN (20:45)
--- NOTE | 2019-11-30 20:51 | Pharmacy Report ---
Pharmacy Abx Initial Consult - Date of Service November 30, 2019 - Pharmacy Dosing Scope Date of Consult: 11/30/19 Consultation requested by: Afua Ramesh PA-C Pharmacy is consulted to initiate Vancomycin IV dosing therapy, order appropriate labs and adjust drug dose/frequency. - Subjective The patient is a 83 year old F admitted on 11/30/19 16:51. - Objective Height: 5 ft 2 in Weight: 88.1 kg Vital Signs (Past 12hrs): Vital Signs Temp Pulse Pulse Resp BP BP Pulse Ox 11/30/19 19:51 36.8 C 106 H 25 H 170/107 H 99 11/30/19 19:35 99 H 98 11/30/19 19:30 97 H 99 11/30/19 19:27 99 H 170/107 H 100 11/30/19 19:25 96 H 100 11/30/19 18:40 100 11/30/19 18:36 91 H 17 100 11/30/19 18:35 76 16 150/72 H 99 11/30/19 18:30 91 H 15 97 11/30/19 18:26 81 7 L 99 11/30/19 18:25 80 20 141/70 H 99 11/30/19 18:22 81 15 136/80 99 11/30/19 18:20 87 22 98 11/30/19 18:16 88 18 132/68 99 11/30/19 18:15 92 H 22 96 11/30/19 18:10 92 H 14 99 11/30/19 18:06 82 24 98 11/30/19 18:05 83 19 132/82 96 11/30/19 18:00 83 19 97 11/30/19 17:55 117 H 15 100 11/30/19 17:50 122 H 19 99 11/30/19 17:48 116 H 16 188/88 H 99 11/30/19 17:46 114 H 22 98 11/30/19 17:45 107 H 20 196/118 H 98 11/30/19 17:41 105 H 16 100 11/30/19 17:40 100 H 16 190/87 H 100 11/30/19 17:36 102 H 16 99 11/30/19 17:35 100 H 16 189/86 H 99 11/30/19 17:31 94 H 16 99 11/30/19 17:30 99 H 16 189/91 H 100 11/30/19 17:26 96 H 16 100 11/30/19 17:25 96 H 18 182/106 H 100 11/30/19 17:21 96 H 16 182/92 H 100 11/30/19 17:20 96 H 16 100 11/30/19 17:16 87 16 155/91 H 100 11/30/19 17:15 80 16 100 11/30/19 17:11 79 16 99 11/30/19 17:10 77 16 114/63 99 11/30/19 17:06 79 16 109/53 L 97 11/30/19 17:05 78 16 98 11/30/19 17:00 91 H 23 123/99 99 11/30/19 16:56 90 14 99 11/30/19 16:55 86 16 124/64 99 11/30/19 16:50 87 17 102/50 L 98 11/30/19 16:45 91 H 24 99 11/30/19 16:41 95 H 21 98 11/30/19 16:40 91 H 24 122/56 L 96 11/30/19 16:38 91 H 17 124/62 97 11/30/19 16:35 120 H 19 96 11/30/19 16:30 119 H 18 98 11/30/19 16:28 98 11/30/19 16:25 97 H 19 99 11/30/19 16:21 84 13 100 11/30/19 16:20 83 16 136/72 99 11/30/19 16:16 93 H 18 99 11/30/19 16:15 93 H 22 149/99 H 99 11/30/19 16:12 89 16 168/83 H 99 11/30/19 16:11 99 H 18 100 11/30/19 16:10 104 H 16 154/120 H 99 11/30/19 16:09 103 H 18 156/87 H 99 11/30/19 16:08 94 11/30/19 16:05 108 H 15 99 11/30/19 16:00 106 H 18 98 11/30/19 15:55 113 H 29 H 98 11/30/19 15:51 95 H 19 136/66 97 11/30/19 15:50 92 H 19 98 11/30/19 15:45 87 18 135/75 100 11/30/19 15:41 67 16 100 04/21/20 15:40 74 15 167/61 H 100 Lab Results (24hrs): Laboratory Tests (24 Hours) 11/30/19 11/30/19 11/30/19 15:47 15:47 15:47 WBC Neut # (Auto) ESR 72 H Creatinine Est Cr Clr Drug Dosing Total Creatine Kinase C-Reactive Protein < 0.29 Procalcitonin < 0.05 11/30/19 11/30/19 15:47 15:47 WBC 11.11 H Neut # (Auto) 5.66 ESR Creatinine 1.00 Est Cr Clr Drug Dosing Not Reportable Total Creatine Kinase 125 C-Reactive Protein Procalcitonin Micro Results: 11/30/19 18:08 Aerobic Blood Culture - Pending Blood Anaerobic Blood Culture - Pending 11/30/19 18:08 Aerobic Blood Culture - Pending Blood Anaerobic Blood Culture - Pending - Risk Factors for Resistance * None appreciated at this time. - Assessment & Plan Assessment 83 year old F with a history of epilepsy brought to ER via EMS. She lives at home with her son, who came home from work to find her having a seizure. In the ER she had a witnessed seizure, then went into respiratory distress. She was emergently intubated and admitted to the ICU. Influenza A/B negative COVID-19 test pending - appropriate isolation precautions until ruled out. Blood cx x2 pending. So far has been afebrile, WBC 11k, procal negative, lactate 2.1 Chest imaging did show left lower lung opacities. Nasal swab ordered to aid with deescalation if pulmonary source is suspected. Plan Vancomycin for empiric treatment of potential pulmonary source/pneumonia Vancomycin IV * Estimated PK Parameters: Vd 0.7 L/kg, Miguel 0.042 hr-1, t1/2 16.4 hr * Loading dose: 1750 mg (20 mg/kg) x1 in the ED. * Maintenance dose: 1250 mg IV (14 mg/kg) every 18 hours * Will start first maintenance dose after only 15 hours due to lower loading dose. * Will check trough at appropriate time if patient is still receiving vancomycin. Pharmacy will continue to follow and will adjust dose/frequency as necessary. Thank you.
[2019-11-30] MEDS: HEPARIN SOD 5,000 UNIT/0.5 ML VIAL SQ SCH (22:01)
[2019-11-30] MEDS: INSULIN ASPART 100 UNITS/ML 3 ML PEN SC SCH ×2 (22:08→23:46)
[2019-11-30] MEDS: INSULIN GLARGINE SOLOSTAR 100 UNITS/ML 3 ML PEN SC SCH (23:44)
[2019-12-01 00:39] LABS: Appearance Urine Clear (Clear); Bilirubin Urine Negative (Negative); Blood Urine Negative (Negative); Color Urine Yellow; Glucose Urine UA Negative (Negative); Ketones Urine Negative (Negative); Leukocyte Esterase Urine Negative (Negative); Nitrite Urine Negative (Negative); Protein Urine Negative (Negative); Specific Gravity Urine 1.021 (1.000-1.030); Urobilinogen Urine Negative (Negative)
[2019-12-01] MEDS: HEPARIN SOD 5,000 UNIT/0.5 ML VIAL SQ SCH ×3 (03:32→20:48)
[2019-12-01] MEDS: propofoL 1,000 MG/100 ML VIAL IV SCH ×3 (03:33→08:19)
[2019-12-01] MEDS ORDERED: NORMOSOL-R 1,000 ML IV SCH (03:45)
[2019-12-01] MEDS ORDERED: CEFEPIME 1,000 MG in SYRINGE 0 ML IV SCH (04:00)
[2019-12-01] MEDS: INSULIN ASPART 100 UNITS/ML 3 ML PEN SC SCH ×5 (04:31→20:47)
[2019-12-01 07:20] LABS: Basophils # (auto) 0.02 K/uL (0-0.2); Basophils % (auto) 0.2 %; Eosinophils # (auto) 0.05 K/uL (0-0.5); Eosinophils % (auto) 0.5 %; Hematocrit (blood only) 37.3 % (37-47); Hemoglobin 12.3 g/dL (12.0-16.0); Immature Granulocytes # (auto) 0.03 K/uL (0.00-0.02); Immature Granulocytes % (auto) 0.3 %; Lymphocytes # (auto) 1.69 K/uL (1.2-3.4); Lymphocytes % (auto) 16.2 %; Mean Corpuscular Hemoglobin 30.8 pg (25-34); Mean Corpuscular Volume 93.5 fL (80-100); Mean Platelet Volume 9.3 fL (7.4-10.4); Monocytes # (auto) 0.82 K/uL (0.11-0.59); Monocytes % (auto) 7.9 %; Neutrophils # (auto) 7.83 K/uL (1.4-6.5); Neutrophils % (auto) 74.9 %; Platelet Count 259 K/uL (130-400); RDW Coefficient of Variation 13.4 % (11.5-14.5); RDW Standard Deviation 46.1 fL (36.4-46.3); Red Blood Count 3.99 M/uL (4.2-5.4); White Blood Count 10.44 K/uL (4.8-10.8)
--- NOTE | 2019-12-01 07:28 | Procedure Note ---
Procedure Note Date of Service December 01, 2019 Procedure: Engine Cleaner Indwelling Peripherally Inserted IV Catheter Placement Attending: Dr. Oliveira APC: Jorge Law PA-C Indication: Need for IV Access, Poor Vascular Access Anesthesia: None A time-out was completed verifying correct patient, procedure, site, positioning, and implant(s) or special equipment if applicable. Utilizing bedside ultrasound, vascularity of the LEFT upper extremity was assessed. Vessel size was noted for appropriate catheter selection and skin was marked with gentle pressure. Patients LEFT upper extremity was prepped and draped in the usual sterile fashion utilizing chlorhexidine. Ultrasound guidance was used to aid needle placement. A 20 g Endurance Catheter was introduced into the LEFT brachial vein under direct ultrasound guidance. Guide wire was easily deployed without resistance. Catheter was threaded over the guide wire without resistance and the entire apparatus was removed intact. Good venous blood return was noted in the catheter. The IV catheter was easily flushed with sterile saline flush. Sterile clave was attached to the end of the catheter and good blood return was again noted. Tourniquet was released. StatLock device and sterile dressing were applied. The patient tolerated the procedure well. Blood Loss: Minimal Complications: None Procedural Ultrasound Guidance: Procedure Date: 12/01/2019 Indication: Poor Vascular Access Attending: Dr. Oilveira APC: Jorge Law PA-C Artery/Veins Identified: YES Access confirmed in Vein with ultrasound: YES Complications: NONE Patient tolerated procedure: WELL Coding
[2019-12-01 07:39] LABS: Albumin Level 3.3 gm/dl (3.4-5.0); BUN Creatinine Ratio 9.4 (10-20); Calcium 8.8 mg/dl (8.5-10.1); Creatinine Clr Calc Pharmacy 64.5 ml/min; Est GFR (African American) 92.6; Est GFR (Non-African American) 79.9; Magnesium 2.1 mg/dl (1.8-2.4); Potassium 3.6 mmol/L (3.5-5.1)
[2019-12-01 07:42] LABS: Albumin Globulin Ratio 0.9 (0.9-2); Bilirubin,Total 0.3 mg/dl (0.2-1); Globulin 3.6 gm/dl (2.5-4.0); Phosphorus 2.1 mg/dl (2.5-4.9); Total Protein 6.9 gm/dl (6.4-8.2)
[2019-12-01] MEDS ORDERED: AZITHROMYCIN 250 MG in DEXTROSE 5% 250 ML IV SCH (08:00)
[2019-12-01] MEDS ORDERED: LEVOTHYROXINE SODIUM 25 MCG TABLET PO SCH (08:00)
[2019-12-01] MEDS ORDERED: VANCOMYCIN HCL 1,250 MG in SODIUM CHLORIDE 0.9% 250 ML IV SCH ×2 (08:00→10:00)
[2019-12-01] MEDS ORDERED: PHENYTOIN 100 MG in SYRINGE 0 ML IV SCH (08:00)
[2019-12-01] MEDS ORDERED: levETIRAcetam 750 MG in 0.9 % SODIUM CHLORIDE 100 ML IV SCH (08:00)
[2019-12-01] MEDS ORDERED: SODIUM CHLORIDE 0.9% 10ML FLUSH IV SCH (08:00)
--- NOTE | 2019-12-01 08:25 | Hospitalist Progress Note ---
Date of Service December 01, 2019 Assessment & Plan (1) Acute respiratory failure with hypoxia: -Admit to ICU NEGATIVE, COVID-19, successful extubation and transition to PCU with telemetry -Initially intubated in the ER by anesthesia team negative COVID-19, NEGATIVE biofire -Follow UA, UCx, BCx x 2 -Initially was started on on azithromycin, vancomycin, and cefepime IV discontinued at time of transfer although concerns for aspiration pneumonia or pneumonitis -POC lactic acid elevated at 12.53, recheck serology was normal -Inflammatory markers evaluated include: FDB=920, ferritin=52.8, procal = <0.05, CRP= <0.29, ESR is elevated at 72. - CT PE IMPRESSION: 1. No evidence of pulmonary thromboembolic disease. 2. Repositioned endotracheal tube terminates 1.5 cm superior to the gladys. Enteric tube distal tip terminates in the mid gastric body 3. Subsegmental groundglass nodular opacities of the right upper and lower lobes are suggestive of an infectious or inflammatory pneumonitis 4. Bibasilar atelectasis with pleural parenchymal scarring and traction bronchiectasis 5. Mild tracheobronchial secretions 6. Cardiomegaly 7. Small hiatal hernia. (2) Asthma: -History of such, not on home inhalers per daughter who confirmed the medication list (3) Seizure disorder: -Follows with Dr. Padilla, neurology as an outpatient - consult for rigo recommendation Transition to Dilantin and Keppra p.o. after IV loading -CT of the head negative -Seizure precautions (4) Type 2 diabetes mellitus: - Last A1C = 6.2 in March 2019, will recheck - Holding PO metformin - glycemic pharmacy consultation with IV abx (5) Dyslipidemia: resume p.o. meds able at time of discharge (6) Vitamin D deficiency: (7) Osteoporosis: (8) Osteoarthritis: -Stable, noted -May continue Voltaren gel for pain relief once patient is no longer intuba sascha/sedated (9) Hypothyroidism: -Continue levothyroxine (10) DVT prophylaxis: -Teds, heparin subcu CODE: FULL - Discussed with the daughter over the phone, she would like her mother to be a full code, if in fact her health status would deteriorate or become a terminal situation she would not want her mother to have advanced procedures or be on life prolonging measures such as ventilation. Disposition: Patient from home, admitted to the ICU, likely to remain there for at least 2 days, intubated on arrival. Admission and Anticipated Discharge Date Admission Date: November 30, 2019 Subjective Initially this patient was on COVID 19 restrictions however her test came back negative. She is successfully extubated this morning. Post extubation she was able to transition to nasal cannula. The exact events that led to her hospitalization could not be recalled by the patient. Review of Systems Review of Systems: Initially review of systems cannot be obtained due to the patient's sedation and intubation. However post intubation she says she felt "okay" she felt she was cold. Mild distress and fatigue no headache, blurry or double vision Did have some hoarseness of her voice no chest pain, pressure or palpitations no shortness of breath, nonproductive cough no wheezes no abdominal pain, nausea or vomiting no dysuria, hematuria or frequency no focal joint pain or swelling no back pain, CVA tenderness or radicular pain no bruising, bleeding or rashes no focal signs of weakness or numbness or altered sensation able to spontaneously move all extremities Physical Exam Physical Exam: The patient appeared well nourished and normally developed. Vital signs as documented. Head exam is unremarkable. No scleral icterus Neck is without JVD, thyromegaly, or carotid bruits. Lungs are coarse to auscultation decreased at the bases Cardiac exam, Rhythm is regular.. No murmurs, rubs or gallops. Abdominal exam reveals normal bowel sounds, no masses, no organomegaly and no aortic enlargement Extremities are nonedematous and both pedal pulses are normal. Neurologic exam is alert and oriented x2 spontaneously moves all extremities, no focal loss of strength or sensation Skin is without bruises or rashes Results & Data Results & Data ([facility]) Vital Signs (Past 12 Hours) Vital Signs Pulse Resp BP Pulse Ox 12/01/19 07:20 79 19 100 12/01/19 05:25 65 143/76 H 99 12/01/19 04:45 66 21 98 12/01/19 04:25 80 137/81 96 12/01/19 04:02 89 163/79 H 97 12/01/19 03:25 70 154/105 H 99 12/01/19 02:25 59 L 139/67 99 12/01/19 01:25 65 118/65 98 04/22/20 00:26 67 97 12/01/19 00:25 65 125/68 97 11/30/19 23:55 74 131/82 96 11/30/19 23:42 67 16 97 11/30/19 22:25 68 118/62 95 11/30/19 21:55 71 140/77 100 11/30/19 21:25 70 133/62 100 11/30/19 20:55 69 117/66 95 11/30/19 20:25 91 H 148/75 H 98 PG Care Time/CCT Total # of Minutes Spent Total Time Spent with Patient: Total time spent is greater than 50% in coordination of care (as documented) at patient's floor/unit and/or counseling patient: Coding Level of Care Code 63695 Subseq Hosp Care Lvl 3 Diagnoses Acute respiratory failure with hypoxia J96.01 Asthma J45.909 Seizure disorder G40.909 Type 2 diabetes mellitus E11.9 Dyslipidemia E78.5 Vitamin D deficiency E55.9 Osteoporosis M81.0 Osteoarthritis M17.12 Laterality: left Osteoarthritis location: knee Osteoarthritis type: primary Hypothyroidism E03.9 Hypothyroidism type: acquired DVT prophylaxis Z29.9 (1) Hypothyroidism Hypothyroidism type: acquired Qualified Code(s): E03.9 - Hypothyroidism, unspecified (2) Osteoarthritis Laterality: left Osteoarthritis location: knee Osteoarthritis type: primary Qualified Code(s): M17.12 - Unilateral primary osteoarthritis, left knee
[2019-12-01] MEDS: INSULIN GLARGINE SOLOSTAR 100 UNITS/ML 3 ML PEN SC SCH (08:27)
[2019-12-01 08:41] LABS: Estimated Average Glucose 151 mg/dl; Hemoglobin A1C 6.9 % (4.5-5.6)
[2019-12-01] MEDS: DICLOFENAC SOD 1% GEL 100 GM TUBE EXT PRN (09:10)
--- NOTE | 2019-12-01 09:24 | Critical Care Progress Note ---
Date of Service December 01, 2019 Assessment & Plan (1) Admitted to intensive care unit: Patient is doing much better today. She is nonfocal on her neurological exam. She is alert. We have successfully extubated the patient to nasal cannula. Keppra levels are pending. Continue home AED medication. She is on IV Keppra currently. Will consult neurology. We will do a bedside swallow later today and consider feeds later. Remove the Arnold catheter later today as well. I do not think that she has any evidence of significant infection. We are stopping her antibiotics. Procalcitonin was negative. CT chest with very mild groundglass opacities and a small amount of atelectasis at the left lung base. There was a concern of possible COVID 19 and this test is pending. It is possible that she had an upper respiratory illness prior to her seizure which may have precipitated this event. If she is stable by the afternoon, will consider transfer to floor. CRITICAL CARE TIME - I have personally spent 30 minutes of critical care time in the direct management of this patient. This is a life/limb threatening event. This includes time spent evaluating patient, direct bedside care, chart review, placing orders, interpretation of diagnostic studies, discussion with consultants, mohan ent, and family members, as well as other required patient management activities. This time is exclusive of all separately billable procedures, and teaching time and separate from and in addition to any other critical care service time. (2) Acute respiratory failure with hypoxia: (3) Seizure disorder: Admission and Anticipated Discharge Date Admission Date: November 30, 2019 Subjective Patient seen and examined this morning. She was intubated on my exam. She was also sedated with 25 of propofol. We are weaning off the propofol and she is on a spontaneous breathing trial. She is doing quite well at this time. We are also proceeded towards extubation. She is following commands and alert. Physical Exam Physical Exam: VITAL SIGNS - Vital signs and nursing notes were reviewed. GENERAL - 83-year-old female appearing her stated age who is in no acute distress. Intubated and sedated. SKIN - Without rashes. HEAD - NC/AT. EYES - PERRL bilaterally. Sclera anicteric. Palpebral conjunctiva pink and moist with no injection noted. EARS - No deformities of external structures noted on gross examination bilaterally. NOSE - Midline and without cyanosis. No epistaxis or purulent drainage noted. MOUTH/OROPHARYNX - ET Tube in place. Without perioral cyanosis. Buccal mucosa pink and moist and without leukoplakia. NECK - Supple to palpation. LUNGS - Chest wall symmetric without accessory muscle use, intercostals retractions, or central cyanosis. Normal vesicular breath sounds CTA B/L. No wheezes, rales, or rhonchi appreciated. CARDIAC - RRR with S1/S2. No murmur, rubs, or gallops appreciated. ABDOMEN - Abdominal contour obese without pulsations or visible masses. BS normoactive all four quadrants. No tenderness, palpable masses, hepatosplenomegaly, or ascites noted. EXTREMITIES - No clubbing or peripheral cyanosis. No pretibial edema present. +3/5 radial and dorsalis pedis pulses palpated throughout. NEUROLOGIC - No focal neurological deficits. Unable to assess fully secondary to patient's current state of sedation. Results & Data Results & Data ([facility] [place]) Vital Signs (Past 12 Hours) Vital Signs Pulse Resp BP Pulse Ox 12/01/19 07:20 79 19 100 12/01/19 05:25 65 143/76 H 99 12/01/19 04:45 66 21 98 12/01/19 04:25 80 137/81 96 12/01/19 04:02 89 163/79 H 97 12/01/19 03:25 70 154/105 H 99 12/01/19 02:25 59 L 139/67 99 12/01/19 01:25 65 118/65 98 12/01/19 00:26 67 97 12/01/19 00:25 65 125/68 97 11/30/19 23:55 74 131/82 96 11/30/19 23:42 67 16 97 11/30/19 22:25 68 118/62 95 11/30/19 21:55 71 140/77 100 11/30/19 21:25 70 133/62 100 Coding Level of Care Code Critical Care 1st 30-74 mins Diagnoses Admitted to intensive care unit Z78.9 Acute respiratory failure with hypoxia J96.01 Seizure disorder G40.909 Time Spent (min) 30
[2019-12-01] MEDS ORDERED: VANCOMYCIN HCL 1,000 MG in SODIUM CHLORIDE 0.9% 250 ML IV SCH (10:00)
--- NOTE | 2019-12-01 11:51 | Pharmacy Report ---
Pharmacy Glycemic Short Note 2 - Date of Service December 01, 2019 - Glycemic Short BSG Results (Last 24 hours): 11/30/19 11/30/19 11/30/19 15:47 15:57 22:07 Glucose 180 H POC Glucose 138 H POC Glucose (other) 187 H 12/01/19 12/01/19 12/01/19 03:49 04:39 07:15 Glucose Cancelled 133 H POC Glucose 125 H POC Glucose (other) 12/01/19 08:25 Glucose POC Glucose 130 H POC Glucose (other) OUTPATIENT ANTIDIABETIC REGIMEN: * Metformin 500mg PO BID * A1c = 6.9% 12/01/19 ASSESSMENT: * Type 2 diabetic admitted to ICU following seizure, possible aspiration, and acute resp failure leading to intubation * This AM patient was extubated and improving clinically * Thus far patient's BSGs have ranged 125-187 with no insulin administration * Will hold metformin at this time and initiate SQ regimen consisting of prandial and correctional insulin only as pt did not require basal insulin on prior admissions. * Of note, on prior admission "moderate" stress level Novolog doses did lead to hypoglycemia. Will use "mild" stress level this admission to determine Novolog doses. PLAN FOR INPATIENT GLYCEMIC CONTROL: * Hold outpatient oral diabetes medications (metformin) * Basal insulin * None at this time; trend fasting AM BSGs * Bolus insulin * NovoLog per scale ACHS or Q6hrs while NPO * Goal Range: Low 120 mg/dL - High 160 mg/dL * Correction Factor: 40 mg/dL/unit * Nutritional / Prandial insulin per carb ratio of 1 unit per 15 grams CHO consumed PLAN FOR DISCHARGE: * given recent A1c of 6.9%, may resume out-pt regimen of metformin if no contraindications present at time of discharge.
[2019-12-01] MEDS ORDERED: POTASSIUM PHOSPHATE 21 MMOL in SODIUM CHLORIDE 0.9% 500 ML IV ONE (12:00)
--- NOTE | 2019-12-01 12:08 | Electrocardiogram Report ---
Test Reason : Blood Pressure : / mmHG Vent. Rate : 086 BPM Atrial Rate : 086 BPM P-R Int : 136 ms QRS Dur : 090 ms QT Int : 406 ms P-R-T Axes : 040 -13 025 degrees QTc Int : 485 ms Normal sinus rhythm T wave abnormality, consider anterior ischemia Prolonged QT Abnormal ECG When compared with ECG of 05-MAR-2019 16:30, Inverted T waves have replaced nonspecific T wave abnormality in Anterior leads QT has lengthened Confirmed by Luis Carranza ([id number]) on 12/01/2019 12:08:14 PM Referred By: REFERRED SELF Confirmed By:Winston Carranza
[2019-12-01] MEDS: ACETAMINOPHEN 325 MG TAB PO PRN ×3 (12:09→21:25)
--- NOTE | 2019-12-01 17:51 | Neurology Consultation ---
Date of Consultation December 01, 2019 Assessment & Plan (1) Seizure disorder: Agata Swift is an 83 yo woman w/ PMH of epilepsy, hypothyroidism, asthma, GERD, h/o stroke, gait problems, HLD, DM and h/o shingles who p/t [facility] after URI and breakthrough seizure. # Breakthrough seizure: in setting of URI and subtherapeutic dilantin levels. Discussed with patient that being on Dilantin long-term carries many risk factors and could potentially be a contributor to her gait dysfunction. She called examiner a liar and refused to have her medication changes. 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 -Continue Keppra 750 twice daily -Would consider starting Depakote 500 mg twice daily if she is willing to, otherwise increase Dilantin to 200 mg twice daily -We will need to have levels checked around December 09 and should schedule follow-up appointment with Dr. Montero next month via telehealth # Chronic Stroke: noted on CTH from 11/30/19 (last CTH and MRI were in 06/2016). Denies having any new neurological symptoms in the last few weeks. Given the hypodensity on CTH, this is likely chronic and just an incidental finding. A1c 6.9. She had an echo in 02/2019 that showed EF 55-60% with borderline reduced RV function. No need to work this up further at this time. - would recommend starting aspirin 81mg daily - continue atorvastatin 20mg daily - would avoid naproxen if possible given warning of increased stroke risk with NSAIDs (tylenol preferred for OA in this setting) - PCP to monitor for stroke prevention goals (A1c <7, LDL <70, BP<135/85) Thank you for this interesting consult. Plan of care discussed with primary team. Please call or text with questions. (2) Hypothyroidism: (3) Gait abnormality: (4) History of stroke: History of Present Illness Attending Physician: Refugio Forbes MD History of Present Illness Agata Swift is an 83 yo woman w/ PMH of epilepsy, hypothyroidism, asthma, GERD, h/o stroke, gait problems, HLD, DM and h/o shingles who p/t [facility] after URI and breakthrough seizure. She initially presented to the emergency department on 11/30/2019 with a one-week history of cough, shortness of breath, fatigue, rhinorrhea and sore throat and reported feeling "shaky" to her son and daughter. They are concerned that her Dilantin level might of been too high as she has a history of Dilantin toxicity in the past. Family witnessed a seizure in the afternoon of 11/30/2019 that was typical for her, prompting call to EMS and transported to ED. In the ED, she was hypertensive to 167/61, respiratory rate 15, satting 100% on room air. Labs showed WBC 11.1, hemoglobin 12.6, platelets 231, mild hyponatremia of sodium 133, mild hypokalemia 3.4, creatinine 1, glucose 180, ESR elevated 72, INR 1.0, lactate 1.4 ([id number] was 12.5), A1c 6.9, calcium 8 within normal, troponin negative, CK within normal, mild hypophosphatemia 2.1, flu negative, COVID negative, UA no infection. Dilantin level was low at 3.3, Keppra level still pending. She had a CT of the chest that showed groundglass opacities in the right upper and lower lobe with bibasilar atelectasis and pleural scarring. She had a CT of the head that showed a relatively new hypodensity in the left basal ganglia and centrum semiovale, SVID, and generalized atrophy. On comparing to MRI brain from 2016, there is no T2 hyperintensity in the same location. She was intubated and sedated for possible COVID, and admitted to the ICU overnight before being extubated on 12/01/2019. On examination today, she was seen on the medical floor after extubation. She reports that she has been taking her Keppra and Dilantin with the only missed dose being yesterday evening after having the breakthrough seizure and coming to the hospital. She does report having symptoms of upper respiratory infection for the last week but otherwise denies dysuria or other symptoms of UTI. I tried to discuss with her that Dilantin is not an ideal medication to be on long-term given multitude of complications and long-term use, and she was convinced that I was lying to her and did not want to change her medications at this time. Allergies Allergy/AdvReac Type Severity Reaction Status Date / Time allopurinol [From Zyloprim] Allergy Unknown Unknown Verified 08/24/19 16:36 levofloxacin [From Levaquin] Allergy Unknown Unknown Verified 08/24/19 16:36 lorazepam Allergy Unknown Unknown Verified 08/24/19 16:36 nortriptyline Allergy Unknown Unknown Verified 08/24/19 16:36 Opioids - Morphine Analogues Allergy Unknown Unknown Verified 08/24/19 16:36 peanut Allergy Unknown SNEEZE, Verified 08/24/19 16:36 COUGH Penicillins Allergy Unknown Unknown Verified 08/24/19 16:36 risedronate sodium Allergy Unknown Unknown Verified 08/24/19 16:36 [From Actonel] Sulfa (Sulfonamide Allergy Unknown Unknown Verified 08/24/19 16:36 Antibiotics) Home Medications Home Medications Medication Instructions Recorded Confirmed Type atorvastatin 20 mg tablet 20 mg PO QAM #90 tab 01/29/19 11/30/19 History metformin 500 mg tablet 500 mg PO BID #180 tab 01/29/19 11/30/19 History levetiracetam 750 mg tablet 750 mg PO BID 30 Days #60 tab 07/29/19 11/30/19 Rx diclofenac sodium 1 % topical gel 4 gm TOPICAL QID PRN #100 gm 09/29/19 11/30/19 Rx phenytoin sodium extended 100 mg See Rx Instructions PO .COMPLEX 11/03/19 11/30/19 Rx capsule #90 cap levothyroxine 50 mcg PO QAM 11/30/19 11/30/19 History naproxen 375 mg PO BID PRN 11/30/19 11/30/19 History Patient History Medical History Acid reflux Asthma (Acute) Dyslipidemia (Chronic) Hiatal hernia History of shingles (~2019) History of stroke 20 YRS AGO, MEMORY PROBLEM AFTER AND TROUBLE SPELLING Hypothyroidism (Chronic) Osteoarthritis (Chronic) Osteoporosis (Acute) Seizure disorder (Chronic) Type 2 diabetes mellitus (Chronic) Vitamin D deficiency (Acute) Surgical History History of ankle surgery L X2 History of colonoscopy History of surgery on left wrist Family History Father Hypertension Mother Diabetes Myocardial infarction Brother Lung disease Diabetes Brother Diabetes Brother Diabetes Brother Diabetes Brother Diabetes Social History Preferred Language: Burmese Communication Ability: Effective Hearing Ability: Normal 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 CV: RRR, no peripheral edema PULM: Nonlabored respirations on room air. Neuro Exam: (limited as she refused to participate in parts of the exam) MS: Awake and Alert. Oriented to person, place, and month/year. Speech fluent and appropriate without dysarthria or paraphasic errors. Language intact including naming, comprehension, repetition. Cognition and memory mildly limited. Attention intact. No neglect. CN: Refused visual field and formal cranial nerve testing. Facial muscles full and symmetric. Hearing intact to conversation. MOTOR: refused tone testing. Would not elevated LUE as she said it "hurt", could wiggle fingers and had 4/5 hand grasp in left hand. RUE antigravity without drift. BLEs briefly elevated from bed but drifted back. REFLEXES: pt refused SENSORY: Intact to LT without extinction to double simultaneous stimuli. Vibration and pinprick deferred as pt refused further examination COORDINATION: No dysmetria or ataxia on observed movements. Would not do formal JOLIE testing. GAIT: deferred given physical status Results & Data ([facility]) Vital Signs (Past 12 Hours) Vital Signs Pulse Resp BP Pulse Ox 12/01/19 14:54 95 H 13 143/106 H 12/01/19 14:00 84 23 92 12/01/19 13:54 85 24 138/85 92 12/01/19 13:00 85 23 94 04/22/20 12:26 85 14 124/61 92 12/01/19 12:00 83 25 H 90 12/01/19 11:55 82 24 133/69 91 12/01/19 11:25 77 16 125/57 L 92 12/01/19 10:25 88 132/76 93 12/01/19 09:55 89 16 144/77 H 92 12/01/19 09:25 90 16 144/97 H 96 12/01/19 08:55 104 H 154/92 H 99 12/01/19 08:25 78 152/75 H 98 12/01/19 08:03 76 157/114 H 100 12/01/19 08:00 79 12/01/19 07:20 79 19 100 12/01/19 07:00 78 97 12/01/19 05:25 65 143/76 H 99 PG Care Time/CCT Total # of Minutes Spent Total Time Spent with Patient: Total time spent is greater than 50% in coordinat ion of care (as documented) at patient's floor/unit and/or counseling patient: Coding Level of Care Code 48924 Initial Inpt Care Lvl 3 Diagnoses Seizure disorder G40.909 Hypothyroidism E03.9 Hypothyroidism type: acquired Gait abnormality R26.9 History of stroke Z86.73 (1) Hypothyroidism Hypothyroidism type: acquired Qualified Code(s): E03.9 - Hypothyroidism, unspecified
[2019-12-01] MEDS: PHENYTOIN SODIUM ER 100 MG CAP PO SCH (20:05)
[2019-12-01] MEDS: levETIRAcetam 250 MG TAB PO SCH (20:05)
[2019-12-02] MEDS: ACETAMINOPHEN 325 MG TAB PO PRN ×3 (02:12→19:42)
[2019-12-02] MEDS: HEPARIN SOD 5,000 UNIT/0.5 ML VIAL SQ SCH ×3 (03:57→21:53)
[2019-12-02] MEDS ORDERED: COUGH DROP (SUGAR FREE) LOZ 24 LOZ/1 BOX BUCCAL ONE (06:50)
[2019-12-02] MEDS ORDERED: COUGH DROP (SUGAR FREE) LOZ 24 LOZ/1 BOX BUCCAL STA (07:18)
[2019-12-02 07:35] LABS: Albumin Level 2.7 gm/dl (3.4-5.0); BUN Creatinine Ratio 10.8 (10-20); Creatinine Clr Calc Pharmacy 67.7 ml/min; Est GFR (African American) 95.1; Potassium 3.4 mmol/L (3.5-5.1)
[2019-12-02 07:38] LABS: Albumin Globulin Ratio 0.7 (0.9-2); Bilirubin,Total 0.5 mg/dl (0.2-1); Globulin 3.7 gm/dl (2.5-4.0); Total Protein 6.4 gm/dl (6.4-8.2)
--- NOTE | 2019-12-02 08:40 | Pharmacy Report ---
Pharmacy Glycemic Short Note 2 - Date of Service December 02, 2019 - Glycemic Short BSG Results (Last 24 hours): 12/01/19 12/01/19 12/01/19 08:25 12:04 15:57 Glucose POC Glucose 130 H 191 H 201 H 12/01/19 12/01/19 12/02/19 16:39 20:41 06:41 Glucose 121 H POC Glucose 186 H 138 H 12/02/19 07:25 Glucose POC Glucose 122 H OUTPATIENT ANTIDIABETIC REGIMEN: * Metformin 500mg PO BID * A1c = 6.9% 12/01/19 INPATIENT REGIMEN: ASSESSMENT: 12/02/19: * BSGs ranged from 125 - 201 mg/dL yesterday. Patient received a total of 3 units of Novolog. * Fasting BSG at goal without administration of basal insulin. * Will continue prandial and correctional insulin only. May need to tighten CF if post prandial BSG spike is noted with lunch today. 12/01/19: * Type 2 diabetic admitted to ICU following seizure, possible aspiration, and acute resp failure leading to intubation * This AM patient was extubated and improving clinically * Thus far patient's BSGs have ranged 125-187 with no insulin administration * Will hold metformin at this time and initiate SQ regimen consisting of prandial and correctional insulin only as pt did not require basal insulin on prior admissions. * Of note, on prior admission "moderate" stress level Novolog doses did lead to hypoglycemia. Will use "mild" stress level this admission to determine Novolog doses. PLAN FOR INPATIENT GLYCEMIC CONTROL: * Hold outpatient oral diabetes medications (metformin) * Basal insulin * None at this time; trend fasting AM BSGs * Bolus insulin * NovoLog per scale ACHS or Q6hrs while NPO * Goal Range: Low 120 mg/dL - High 160 mg/dL * Correction Factor: 40 mg/dL/unit * Nutritional / Prandial insulin per carb ratio of 1 unit per 15 grams CHO consumed PLAN FOR DISCHARGE: * given recent A1c of 6.9%, may resume out-pt regimen of metformin if no contraindications present at time of discharge.
[2019-12-02] MEDS ORDERED: cefTRIAXone SODIUM 2,000 MG in DEXTROSE 5% 50 ML IV SCH (09:00)
[2019-12-02] MEDS: POTASSIUM CHLORIDE 20 MEQ TABCR PO SCH ×2 (09:02→19:43)
[2019-12-02] MEDS: PHENYTOIN SODIUM ER 100 MG CAP PO SCH ×2 (09:04→19:44)
[2019-12-02] MEDS: AZITHROMYCIN 250 MG TAB PO SCH (09:04)
[2019-12-02] MEDS: LEVOTHYROXINE SODIUM 50 MCG TABLET PO SCH (09:04)
[2019-12-02] MEDS: levETIRAcetam 250 MG TAB PO SCH ×2 (09:04→21:52)
[2019-12-02] MEDS: INSULIN ASPART 100 UNITS/ML 3 ML PEN SC SCH ×4 (09:05→21:50)
[2019-12-02] MEDS: SODIUM CHLORIDE 0.9% 500 ML IV SCH ×2 (09:06→17:01)
[2019-12-02] MEDS: DICLOFENAC SOD 1% GEL 100 GM TUBE EXT PRN ×2 (09:09→22:17)
--- NOTE | 2019-12-02 14:19 | Hospitalist Progress Note ---
Date of Service December 02, 2019 Assessment & Plan (1) Acute respiratory failure with hypoxia: -Initially intubated in the ER by anesthesia team, successful extubation and transition to PCU with telemetry negative COVID-19, NEGATIVE biofire -Follow UA, UCx, BCx x 2 -Initially was started on on azithromycin, vancomycin, and cefepime IV discontinued at time of transfer although concerns for aspiration pneumonia or pneumonitis was transitioned to ceftriaxone and axithromycin, will complete course for 5 days - CT PE IMPRESSION: 1. No evidence of pulmonary thromboembolic disease. 2. Repositioned endotracheal tube terminates 1.5 cm superior to the gladys. Enteric tube distal tip terminates in the mid gastric body 3. Subsegmental groundglass nodular opacities of the right upper and lower lobes are suggestive of an infectious or inflammatory pneumonitis 4. Bibasilar atelectasis with pleural parenchymal scarring and traction bronchiectasis 5. Mild tracheobronchial secretions 6. Cardiomegaly 7. Small hiatal hernia. (2) Asthma: -History of such, not on home inhalers per daughter who confirmed the medication list (3) Seizure disorder: -Follows with Dr. Padilla, neurology as an outpatient - consult for rigo recommendation Transition to Dilantin and Keppra p.o. after IV loading -CT of the head negative -Seizure precautions (4) Type 2 diabetes mellitus: - Last A1C = 6.2 in March 2019, will recheck - Holding PO metformin - glycemic pharmacy consultation with IV abx (5) Dyslipidemia: resume p.o. meds able at time of discharge (6) Vitamin D deficiency: (7) Osteoporosis: (8) Osteoarthritis: -Stable, noted -May continue Voltaren gel for pain relief once patient is no longer intubated/sedated (9) Hypothyroidism: -Continue levothyroxine (10) DVT prophylaxis: -Teds, heparin subcu CODE: FULL - Discussed with the daughter over the phone, she would like her mother to be a full code, if in fact her health status would deteriorate or become a terminal situation she would not want her mother to have advanced procedures or be on life prolonging measures such as ventilation. Disposition: Patient from home, admitted to the ICU, likely to remain there for at least 2 days, intubated on arrival. Admission and Anticipated Discharge Date Admission Date: November 30, 2019 Subjective this pt is awake and alert, has no recollection of the events that lead to her hospitilization, does complain of a painful shoulder Review of Systems Review of Systems: Mild distress and fatigue no headache, blurry or double vision no speech or swallowing issues no chest pain, pressure or palpitations no shortness of breath, cough or wheezes no abdominal pain, nausea or vomiting, diarrhea or constipation no dysuria, hematuria or frequency Left shoulder pain to abduction and rotation no focal pain along her collarbone or swelling no back pain, CVA tenderness or radicular pain no bruising, bleeding or rashes no focal signs of weakness or numbness or altered sensation no complaints or anxiety or depression Physical Exam Physical Exam: the patient appeared well nourished and normally developed. Vital signs as documented. Head exam is unremarkable. No scleral icterus Neck is without JVD, thyromegaly, or carotid bruits. Lungs are clear to auscultation and percussion. Maybe some decreased breath sounds at the bases Cardiac exam, Rhythm is regular.. No murmurs, rubs or gallops. Abdominal exam reveals normal bowel sounds, soft non tender, no masses Extremities her left shoulder is tender her clavicle is not tender there is some AC joint tenderness there is tenderness to external rotation and abduction. Are nonedematous and both pedal pulses are normal. Neurologic exam is alert and oriented, no focal loss of strength or sensation Skin is without bruises or rashes Psychologically is without concerns for anxiety or depression Results & Data Results & Data ([facility]) Vital Signs (Past 12 Hours) Vital Signs Temp Pulse Resp BP Pulse Ox 12/02/19 11:56 98.4 F 82 19 140/65 94 12/02/19 07:35 99.0 F 110 H 18 122/64 96 12/02/19 04:18 99.3 F 89 22 137/67 95 PG Care Time/CCT Total # of Minutes Spent Total Time Spent with Patient: Total time spent is greater than 50% in c oordination of care (as documented) at patient's floor/unit and/or counseling patient: Coding Level of Care Code 23503 Subseq Hosp Care Lvl 3 Diagnoses Acute respiratory failure with hypoxia J96.01 Asthma J45.909 Seizure disorder G40.909 Type 2 diabetes mellitus E11.9 Dyslipidemia E78.5 Vitamin D deficiency E55.9 Osteoporosis M81.0 Osteoarthritis M17.12 Osteoarthritis location: knee Osteoarthritis type: primary Laterality: left Hypothyroidism E03.9 Hypothyroidism type: acquired DVT prophylaxis Z29.9 (1) Osteoarthritis Osteoarthritis location: knee Osteoarthritis type: primary Laterality: left Qualified Code(s): M17.12 - Unilateral primary osteoarthritis, left knee (2) Hypothyroidism Hypothyroidism type: acquired Qualified Code(s): E03.9 - Hypothyroidism, unspecified
[2019-12-02] MEDS ORDERED: MoRPHine SULFATE 2 MG/ML CARP IV PRN (15:17)
[2019-12-02] MEDS ORDERED: ACETAMINOPHEN 500 MG TAB PO PRN (15:17)
--- NOTE | 2019-12-02 15:46 | XRay Report ---
XR shoulder LT min 2V routine CLINICAL HISTORY: seizure with pain pain COMPARISON: None. DISCUSSION: Moderate degenerative change of the glenohumeral joint. Moderate degenerative change of t he acromioclavicular joint. No abnormal soft tissue calcifications. No evidence for fracture or dislocation. There is no evidence for soft tissue swelling. IMPRESSION: Moderate degenerative change left shoulder. No acute process. ACT 112: Negative or not required by law. The above report was generated using voice recognition software. It may contain grammatical, syntax or spelling errors. Electronically signed by: Georgi Fitch M.D. 12/02/2019 3:44 PM
[2019-12-02] MEDS ORDERED: ONDANSETRON INJ 2 MG/ML 2 ML VIAL IV PRN (16:46)
[2019-12-02] MEDS: SODIUM CHLORIDE 0.9% 1000ML 1,000 ML IV SCH (17:20)
--- NOTE | 2019-12-02 19:19 | XRay Report ---
XR wrist LT 2V, XR elbow LT 2V HISTORY: 83 years-old Female pain acute left wrist and elbow pain COMPARISON: None TECHNIQUE: 2 views of the left wrist and 2 views of the left elbow FINDINGS: Limited exam secondary to patient condition. WRIST: Demineralized appearance of the bones. Lateral view is limited secondary to positioning. Cortical thi ckening of the lateral aspect radial metaphysis suggest remote fracture deformity. Ill-defined lucenc y involves the radial styloid. Chondrocalcinosis of the distal radial ulnar joint and TFCC. Moderate radiocarpal osteoarthritis with prominent carpal cystic changes. Severe triscaphe V and first carpome tacarpal osteoarthritis. No definite acute fracture or dislocation. Moderate soft tissue swelling is most pronounced dorsally. ELBOW: Demineralized appearance of the bones. Moderate osteoarthritis with marginal spurring of the distal h umerus. Mild diffuse soft tissue prominence of the forearm. The lateral view is limited secondary to positioning. No large joint effusion. IMPRESSION: 1. Limited studies secondary to positioning as above. 2. No definite acute fracture or dislocation identified involving the left wrist or elbow. 3. Ill-defined lucency involving the radial styloid is likely projectional with normal medullary spac e markings. A subtle acute nondisplaced fracture is considered less likely. Correlate with point tend erness. 4. Degenerative changes as above. 5. Soft tissue swelling of the forearm and wrist. ACT 112: Negative or not required by law. The above report was generated using voice recognition software. It may contain grammatical, syntax o r spelling errors. Electronically signed by: Ramos Cortez M.D. 12/02/2019 7:18 PM
[2019-12-03] MEDS: OXYCODONE HCL IR 5 MG TAB (IMMEDIATE RELEASE) PO PRN (00:07)
[2019-12-03] MEDS: HEPARIN SOD 5,000 UNIT/0.5 ML VIAL SQ SCH ×3 (04:18→20:48)
[2019-12-03] MEDS: SODIUM CHLORIDE 0.9% 1000ML 1,000 ML IV SCH ×2 (05:45→16:08)
[2019-12-03] MEDS: ACETAMINOPHEN 325 MG TAB PO PRN ×3 (06:48→17:43)
[2019-12-03 07:33] LABS: Hemoglobin 10.5 g/dL (12.0-16.0); Mean Corpuscular Hemoglobin 31.1 pg (25-34); Mean Corpuscular Hgb Conc 32.8 g/dL (32-36); Mean Corpuscular Volume 94.7 fL (80-100); Mean Platelet Volume 9.2 fL (7.4-10.4); Platelet Count 241 K/uL (130-400); RDW Coefficient of Variation 13.5 % (11.5-14.5); RDW Standard Deviation 47.1 fL (36.4-46.3); Red Blood Count 3.38 M/uL (4.2-5.4); White Blood Count 10.52 K/uL (4.8-10.8)
[2019-12-03 07:54] LABS: Albumin Globulin Ratio 0.6 (0.9-2); Albumin Level 2.6 gm/dl (3.4-5.0); BUN Creatinine Ratio 10.8 (10-20); Bilirubin,Total 0.3 mg/dl (0.2-1); Calcium 8.3 mg/dl (8.5-10.1); Creatinine Clr Calc Pharmacy 73.4 ml/min; Est GFR (Non-African American) 84.6; Globulin 4.2 gm/dl (2.5-4.0); Potassium 4.1 mmol/L (3.5-5.1); Total Protein 6.8 gm/dl (6.4-8.2)
[2019-12-03] MEDS: LEVOTHYROXINE SODIUM 50 MCG TABLET PO SCH (08:03)
[2019-12-03] MEDS: PHENYTOIN SODIUM ER 100 MG CAP PO SCH ×2 (08:03→20:45)
[2019-12-03] MEDS: levETIRAcetam 250 MG TAB PO SCH ×2 (08:03→20:46)
[2019-12-03] MEDS: CEFDINIR 300 MG CAP PO SCH ×2 (08:04→20:46)
[2019-12-03] MEDS: POTASSIUM CHLORIDE 20 MEQ TABCR PO SCH (08:04)
[2019-12-03] MEDS: AZITHROMYCIN 250 MG TAB PO SCH (08:04)
[2019-12-03] MEDS: INSULIN ASPART 100 UNITS/ML 3 ML PEN SC SCH ×4 (08:05→20:49)
--- NOTE | 2019-12-03 12:36 | Pharmacy Report ---
Pharmacy Glycemic Short Note 2 - Date of Service December 03, 2019 - Glycemic Short BSG Results (Last 24 hours): 12/02/19 12/02/19 12/03/19 16:15 20:08 07:11 Glucose 120 H POC Glucose 125 H 159 H 12/03/19 12/03/19 07:27 11:32 Glucose POC Glucose 121 H 101 H OUTPATIENT ANTIDIABETIC REGIMEN: * Metformin 500mg PO BID * A1c = 6.9% 12/01/19 INPATIENT REGIMEN: ASSESSMENT: 12/03/19: * Excellent glycemic control with minimal meal time insulin * Continues to require no basal insulin to achieve fasting BSG at goal 12/02/19: * BSGs ranged from 125 - 201 mg/dL yesterday. Patient received a total of 3 units of Novolog. * Fasting BSG at goal without administration of basal insulin. * Will continue prandial and correctional insulin only. May need to tighten CF if post prandial BSG spike is noted with lunch today. 12/01/19: * Type 2 diabetic admitted to ICU following seizure, possible aspiration, and acute resp failure leading to intubation * This AM patient was extubated and improving clinically * Thus far patient's BSGs have ranged 125-187 with no insulin administration * Will hold metformin at this time and initiate SQ regimen consisting of prandial and correctional insulin only as pt did not require basal insulin on prior admissions. * Of note, on prior admission "moderate" stress level Novolog doses did lead to hypoglycemia. Will use "mild" stress level this admission to determine No volog doses. PLAN FOR INPATIENT GLYCEMIC CONTROL: * Hold outpatient oral diabetes medications (metformin) * Basal insulin - no change * None * Bolus insulin - no change * NovoLog per scale ACHS or Q6hrs while NPO * Goal Range: Low 120 mg/dL - High 160 mg/dL * Correction Factor: 40 mg/dL/unit * Nutritional / Prandial insulin per carb ratio of 1 unit per 15 grams CHO consumed PLAN FOR DISCHARGE: * given recent A1c of 6.9%, may resume out-pt regimen of metformin if no contraindications present at time of discharge.
--- NOTE | 2019-12-03 17:05 | Hospitalist Progress Note ---
Date of Service December 03, 2019 Assessment & Plan (1) Acute respiratory failure with hypoxia: -Initially intubated in the ER by anesthesia team, successful extubation and transition to floor as is continuing to recover, inital respiratory failure likely from seizure and post ictal state, now resolved negative COVID-19, NEGATIVE biofire -Follow UA, UCx, BCx x 2 -Initially was started on on azithromycin, vancomycin, and cefepime IV discontinued at time of transfer although concerns for aspiration pneumonia or pneumonitis was transitioned to cefdinir and axithromycin, will complete course for 5 days - CT PE IMPRESSION: 1. No evidence of pulmonary thromboembolic disease. 2. Repositioned endotracheal tube terminates 1.5 cm superior to the gladys. Enteric tube distal tip terminates in the mid gastric body 3. Subsegmental groundglass nodular opacities of the right upper and lower lobes are suggestive of an infectious or inflammatory pneumonitis 4. Bibasilar atelectasis with pleural parenchymal scarring and traction bronchiectasis 5. Mild tracheobronchial secretions 6. Cardiomegaly 7. Small hiatal hernia. (2) Asthma: -History of such, not on home inhalers per daughter who confirmed the medication list (3) Seizure disorder: -Follows with Dr. Padilla, neurology as an outpatient - consult for rigo recommendation Transition to Dilantin and Keppra p.o. after IV loading After evaluation by neurology recommend to increase am dilantin to 150 mg, since no long acting 150 , will use 100 long acting and add 50 mg, checking dilantion levels and shooting for 10-15 -CT of the head negative -Seizure precautions (4) Type 2 diabetes mellitus: - Last A1C = 6.2 in March 2019, will recheck - will resume PO metformin - glycemic pharmacy consultation with IV abx (5) Dyslipidemia: resume p.o. meds at time of discharge (6) Vitamin D deficiency: (7) Osteoporosis: (8) Osteoarthritis: -Stable, noted -May continue Voltaren gel for pain relief her arthritis likely has impact to her persistent pain (9) Hypothyroidism: -Continue levothyroxine (10) DVT prophylaxis: -Teds, heparin subcu CODE: FULL - Discussed with the daughter over the phone, she would like her mother to be a full code, if in fact her health status would deteriorate or become a terminal situation she would not want her mother to have advanced procedures or be on life prolonging measures such as ventilation. Disposition: Patient from home, will need PT/OT evaluation to determine fitness to return to home Admission and Anticipated Discharge Date Admission Date: November 30, 2019 Subjective this pt is much more awake and alert, she still has some arm pain that is likely a contusion from prehospital event Review of Systems Review of Systems: Mild distress and moderate fatigue no headache, blurry or double vision no speech or swallowing issues no chest pain, pressure or palpitations no shortness of breath, cough or wheezes no abdominal pain, nausea or vomiting, diarrhea or constipation no dysuria, hematuria or frequency Planes of left arm pain shoulder elbow and wrist no fracture seen on x-rays no back pain, CVA tenderness or radicular pain no bruising, bleeding or rashes no focal signs of weakness or numbness or altered sensation she is globally weak will need PT OT evaluation no complaints or anxiety or depression Physical Exam Physical Exam: The patient appeared well nourished and normally developed. She is weak and tired Vital signs as documented. Head exam is unremarkable. No scleral icterus Neck is without JVD, thyromegaly, or carotid bruits. Lungs are clear to auscultation and percussion. Cardiac exam, Rhythm is regular.. No murmurs, rubs or gallops. Abdominal exam reveals normal bowel sounds, soft non tender, no masses Extremities are nonedematous and left arm is tender to movement there is no deformities Neurologic exam is alert and oriented x2, no focal loss of strength or sensation Skin is without bruises or rashes Psychologically is without concerns for anxiety or depression Results & Data Results & Data ([facility]) Vital Signs (Past 12 Hours) Vital Signs Temp Pulse Pulse Pulse Resp BP BP 12/03/19 15:56 98.1 F 87 18 151/79 H 12/03/19 15:32 97.5 F L 80 20 146/80 H 12/03/19 14:39 78 12/03/19 10:55 97.5 F L 80 19 122/74 12/03/19 07:07 98.4 F 91 H 18 137/72 Pulse Ox 12/03/19 15:56 95 12/03/19 15:32 96 12/03/19 14:39 12/03/19 10:55 94 12/03/19 07:07 94 PG Care Time/CCT Total # of Minutes Spent Total Time Spent with Patient: Total time spent is greater than 50% in coordination of care (as documented) at patient's floor/unit and/or counseling patient: Coding Level of Care Code 30356 Subseq Hosp Care Lvl 2 Diagnoses Acute respiratory failure with hypoxia J96.01 Asthma J45.909 Seizure disorder G40.909 Type 2 diabetes mellitus E11.9 Dyslipidemia E78.5 Vitamin D deficiency E55.9 Osteoporosis M81.0 Osteoarthritis M17.12 Osteoarthritis location: knee Osteoarthritis type: primary Laterality: left Hypothyroidism E03.9 Hypothyroidism type: acquired DVT prophylaxis Z29.9 (1) Osteoarthritis Osteoarthritis location: knee Osteoarthritis type: primary Laterality: left Qualified Code(s): M17.12 - Unilateral primary osteoarthritis, left knee (2) Hypothyroidism Hypothyroidism type: acquired Qualified Code(s): E03.9 - Hypothyroidism, unspecified
[2019-12-04] MEDS: OXYCODONE HCL IR 5 MG TAB (IMMEDIATE RELEASE) PO PRN ×2 (00:16→04:31)
[2019-12-04] MEDS: HEPARIN SOD 5,000 UNIT/0.5 ML VIAL SQ SCH ×3 (04:29→21:04)
[2019-12-04] MEDS: SODIUM CHLORIDE 0.9% 1000ML 1,000 ML IV SCH (04:30)
[2019-12-04] MEDS ORDERED: PHENYTOIN 50 MG CHEW PO SCH (08:00)
[2019-12-04] MEDS ORDERED: PHENYTOIN SODIUM ER 100 MG CAP PO SCH (08:00)
[2019-12-04] MEDS: AZITHROMYCIN 250 MG TAB PO SCH (08:49)
[2019-12-04] MEDS: LEVOTHYROXINE SODIUM 50 MCG TABLET PO SCH (08:49)
[2019-12-04] MEDS: CEFDINIR 300 MG CAP PO SCH ×2 (08:49→21:03)
[2019-12-04] MEDS: levETIRAcetam 250 MG TAB PO SCH ×2 (08:50→21:03)
[2019-12-04] MEDS: INSULIN ASPART 100 UNITS/ML 3 ML PEN SC SCH ×4 (08:53→21:02)
--- NOTE | 2019-12-04 12:55 | Hospitalist Progress Note ---
Date of Service December 04, 2019 Assessment & Plan (1) Acute respiratory failure with hypoxia: -Initially intubated in the ER by anesthesia team, successful extubation and transition to floor as is continuing to recover, inital respiratory failure likely from seizure and post ictal state, now resolved negative COVID-19, NEGATIVE biofire -Follow UA, UCx, BCx x 2 -Initially was started on on azithromycin, vancomycin, and cefepime IV discontinued at time of transfer although concerns for aspiration pneumonia or pneumonitis was transitioned to cefdinir and axithromycin, will complete course for 5 days - CT PE IMPRESSION: 1. No evidence of pulmonary thromboembolic disease. 2. Repositioned endotracheal tube terminates 1.5 cm superior to the gladys. Enteric tube distal tip terminates in the mid gastric body 3. Subsegmental groundglass nodular opacities of the right upper and lower lobes are suggestive of an infectious or inflammatory pneumonitis 4. Bibasilar atelectasis with pleural parenchymal scarring and traction bronchiectasis 5. Mild tracheobronchial secretions 6. Cardiomegaly 7. Small hiatal hernia. (2) Asthma: -History of such, not on home inhalers per daughter who confirmed the medication list (3) Seizure disorder: -Follows with Dr. Padilla, neurology as an outpatient - consult for furher recommendation Transition to Dilantin and Keppra p.o. after IV loading After evaluation by neurology recommend to keep dilantin level 10-15 range, will increase daily dose to 200 bid on 12/04/19 -CT of the head negative -Seizure precautions (4) Type 2 diabetes mellitus: - Last A1C = 6.2 in March 2019, will recheck - will resume PO metformin - glycemic pharmacy consultation with IV abx (5) Dyslipidemia: resume p.o. meds at time of discharge (6) Vitamin D deficiency: (7) Osteoporosis: (8) Osteoarthritis: -Stable, noted -May continue Voltaren gel for pain relief her arthritis likely has impact to her persistent pain (9) Hypothyroidism: -Continue levothyroxine (10) DVT prophylaxis: -Teds, heparin subcu CODE: FULL - Discussed with the daughter over the phone, she would like her mother to be a full code, if in fact her health status would deteriorate or become a terminal situation she would not want her mother to have advanced procedures or be on life prolonging measures such as ventilation. Disposition: Patient from home, will need PT/OT evaluation to determine fitness to return to home (11) Left arm swelling: Left arm swelling may be from her injury or infiltration from intravenous fluids subsequently we will check a Doppler today escalate scheduled Tylenol and patient is offered PRN oxycodone. She will also be given a warming pad to try to help her discomfort there is no overt fractures except for distal radius which is not correlating with her clinical signs of pain and she does have a history of a previous wrist fracture this could be residual from previous Admission and Anticipated Discharge Date Admission Date: November 30, 2019 Subjective Patient continues to be awake alert appropriate. Her Dilantin level is subtherapeutic this morning. She continues to have persistent pain in her left arm which is not clinically correlating with very small possible hairline or linear fracture of her distal radius. Her pain is mostly shoulder and elbow. To this and will pursue Doppler she does have some minor swelling this may be exacerbation of arthritic pain from her seizure at home and a associated fall. Review of Systems Review of Systems: Mild distress and fatigue no headache, blurry or double vision no speech or swallowing issues no chest pain, pressure or palpitations no shortness of breath, cough or wheezes no abdominal pain, nausea or vomiting, diarrhea or constipation no dysuria, hematuria or frequency Significant left arm pain mostly shoulder and elbow with some associated swelling but she did have infiltrated IV fluid pending Doppler study no back pain, CVA tenderness or radicular pain no bruising, bleeding or rashes no focal signs of weakness or numbness or altered sensation no complaints or anxiety or depression Physical Exam Physical Exam: The patient appeared well nourished and normally developed. Patient is tearful wants to go home awaiting therapy evaluations Vital signs as documented. Head exam is unremarkable. No scleral icterus Neck is without JVD, thyromegaly, or carotid bruits. Lungs are clear to auscultation and percussion. Cardiac exam, Rhythm is regular.. Systolic murmur is heard Abdominal exam reveals normal bowel sounds, soft non tender, no masses Extremities left arm is mildly erythematous and swollen but she did have an infiltrate of her IV fluid site. She has tenderness to movement of her shoulder and elbow but not her distal wrist Neurologic exam is alert and oriented, no focal loss of strength or sensation Skin is without bruises Psychologically is without concerns for anxiety or depression Results & Data Results & Data ([facility]) Vital Signs (Past 12 Hours) Vital Signs Temp Pulse Resp BP Pulse Ox 12/04/19 07:53 98.4 F 88 16 138/78 93 PG Care Time/CCT Total # of Minutes Spent Total Time Spent with Patient: Total time spent is greater than 50% in coordination of care (as documented) at patient's floor/unit and/or counseling patient: Coding Level of Care Code 35479 Subseq Hosp Care Lvl 3 Diagnoses Acute respiratory failure with hypoxia J96.01 Asthma J45.909 Seizure disorder G40.909 Type 2 diabetes mellitus E11.9 Dyslipidemia E78.5 Vitamin D deficiency E55.9 Osteoporosis M81.0 Osteoarthritis M17.12 Osteoarthritis location: knee Osteoarthritis type: primary Laterality: left Hypothyroidism E03.9 Hypothyroidism type: acquired DVT prophylaxis Z29.9 Left arm swelling M79.89 (1) Osteoarthritis Osteoarthritis location: knee Osteoarthritis type: primary Laterality: left Qualified Code(s): M17.12 - Unilateral primary osteoarthritis, left knee (2) Hypothyroidism Hypothyroidism type: acquired Qualified Code(s): E03.9 - Hypothyroidism, unspecified
[2019-12-04] MEDS ORDERED: PHENYTOIN 50 MG CHEW PO ONE (13:00)
[2019-12-04] MEDS: ACETAMINOPHEN 500 MG TAB PO SCH ×2 (13:02→21:03)
--- NOTE | 2019-12-04 14:05 | Ultrasound Report ---
LEFT UPPER EXTREMITY VENOUS DOPPLER ULTRASOUND CLINICAL HISTORY: swelling left arm COMPARISON STUDY: No previous studies for comparison. FINDINGS: Left internal jugular, subclavian, axillary, brachial, basilic, radial and ulnar veins were patent. No deep venous thrombus was identified within the left upper extremity. IMPRESSION: No deep venous thrombus identified within the left upper extremity. ACT 112: Negative or not required by law. Electronically signed by: Migel Tillman M.D. 12/04/2019 2:04 PM
[2019-12-04] MEDS ORDERED: Nursing to Pharmacy Communication ONE (14:18)
[2019-12-04] MEDS ORDERED: COUGH DROP (SUGAR FREE) LOZ 24 LOZ/1 BOX BUCCAL PRN (14:22)
[2019-12-04] MEDS: PHENYTOIN SODIUM ER 100 MG CAP PO SCH (21:02)
[2019-12-05] MEDS: HEPARIN SOD 5,000 UNIT/0.5 ML VIAL SQ SCH ×2 (04:26→13:36)
[2019-12-05] MEDS: OXYCODONE HCL IR 5 MG TAB (IMMEDIATE RELEASE) PO PRN (04:26)
[2019-12-05] MEDS: INSULIN ASPART 100 UNITS/ML 3 ML PEN SC SCH ×2 (09:43→13:33)
[2019-12-05] MEDS: levETIRAcetam 250 MG TAB PO SCH (09:45)
[2019-12-05] MEDS: CEFDINIR 300 MG CAP PO SCH (09:45)
[2019-12-05] MEDS: ACETAMINOPHEN 500 MG TAB PO SCH (09:46)
[2019-12-05] MEDS: AZITHROMYCIN 250 MG TAB PO SCH (09:46)
[2019-12-05] MEDS: LEVOTHYROXINE SODIUM 50 MCG TABLET PO SCH (09:46)
[2019-12-05] MEDS: PHENYTOIN SODIUM ER 100 MG CAP PO SCH (09:46)
--- NOTE | 2019-12-05 13:53 | Neurology Progress Note ---
Date of Service December 05, 2019 Assessment & Plan (1) Seizure disorder: Agata Swift is an 83 yo woman w/ PMH of epilepsy, hypothyroidism, asthma, GERD, h/o stroke, gait problems, HLD, DM and h/o shingles who p/t [facility] [place] after URI and breakthrough seizure. # Breakthrough seizure: in setting of URI and subtherapeutic dilantin levels. Discussed with patient that being on Dilantin long-term carries many risk factors and could potentially be a contributor to her gait dysfunction. She is not interested in having AED medication changes at this time. 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 -Continue Keppra 750 twice daily, continue dilantin 200mg bid - check free and total dilantin levels given hypoalbuminemia (goal total 10-15, goal free 1-2) - if levels still low tomorrow AM (12/05), would bolus her 100mg dilantin IV and re-check free/total dilantin levels 2 hours after bolus - should schedule follow-up appointment with Dr. Montero next month via telehealth # Chronic Stroke: noted on CTH from 11/30/19 (last CTH and MRI were in 06/2016). Denies having any new neurological symptoms in the last few weeks. Given the hypodensity on CTH, this is likely chronic and just an incidental finding. A1c 6.9. She had an echo in 02/2019 that showed EF 55-60% with borderline reduced RV function. No need to work this up further at this time. - would recommend starting aspirin 81mg daily - continue atorvastatin 20mg daily - would avoid naproxen if possible given warning of increased stroke risk with NSAIDs (tylenol preferred for OA in this setting) - PCP to monitor for stroke prevention goals (A1c <7, LDL <70, BP<135/85) Thank you for this interesting consult. Plan of care discussed with primary team. Please call or text with questions. (2) Hypothyroidism: (3) Gait abnormality: (4) History of stroke: Admission and Anticipated Discharge Date Admission Date: November 30, 2019 Subjective NAEs overnight. Reports having ongoing pain in her left shoulder and difficulty moving left hand. Tolerating PO well. Asking if she could be written for brand name dilantin instead of generic since she thinks it works better. Review of Systems Review of Systems: All systems reviewed & are unremarkable except as noted in HPI & below Results & Data ([facility]) Vital Signs (Past 12 Hours) Vital Signs Temp Pulse Resp BP Pulse Ox 12/05/19 07:35 36.7 C 77 18 149/84 H 92 Exam (Neuro) Physical Exam: General Exam: GEN: NAD, sitting in chair eating lunch HEENT: No conjunctival injection, no rhinorrhea. CV: RRR, no peripheral edema PULM: Nonlabored respirations on room air. Neuro Exam: MS: Awake and Alert. Oriented to person, place, and month/year. Speech fluent and appropriate without dysarthria or paraphasic errors. Language intact including naming, comprehension, repetition. Cognition and memory mildly limited. Attention intact. No neglect. CN: Visual pond full. No extinction to double simultaneous stimuli. Unable to visualize fundi on fundoscopic exam. PERRLA OU. EOMI without nystagmus. Facial sensation intact to LT. Facial muscles full and symmetric. Hearing intact to conversation. Uvula midline with symmetric palatal elevation. Shoulder shrug normal. Tongue midline. MOTOR: Would not elevated LUE as she said it "hurt", could wiggle fingers and had 4/5 hand grasp in left hand. RUE antigravity without drift. BLEs antigravity without drift. No tremor on outstretch. REFLEXES: 1+ throughout SENSORY: Intact to LT without extinction to double simultaneous stimuli. COORDINATION: No dysmetria or ataxia on observed movements. Normal Anju GAIT: deferred given physical status/fall risk PG Care Time/CCT Total # of Minutes Spent Total Time Spent with Patient: Total time spent is greater than 50% in coordination of care (as documented) at patient's floor/unit and/or counseling patient: Coding Level of Care Code 68393 Subseq Hosp Care Lvl 3 Diagnoses Seizure disorder G40.909 Hypothyroidism E03.9 Hypothyroidism type: acquired Gait abnormality R26.9 History of stroke Z86.73 (1) Hypothyroidism Hypothyroidism type: acquired Qualified Code(s): E03.9 - Hypothyroidism, unspecified
--- NOTE | 2019-12-05 18:26 | Discharge Summary ---
Date of Service December 05, 2019 Admission HPI Per Admitting Provider This is an 83 yo F with PMHx of generalized epilepsy on Dilantin and Keppra, impaired gait, asthma, DM type II, HLD, hypothyroidism, osteoarthritis, GERD who presented to the ER with acute worsening upper respiratory-like symptoms including cough, shortness of breath, fatigue, runny nose, scratchy/sore throat which began last Friday, the sx leveled out over the past week and pt thought that she was getting over the cold. Yesterday she reported feeling "shaky" to her daughter and son. They had concerns for her dilantin level being too high as she previously had a toxic level last fall. She follows with neurology, Dr. Padilla. Before being able to get a telemedicine consult she had a seizure this morning as described below. Her son lives her, and this morning he was out of the house working for a few hours. When he came home, he saw her having a seizure , shaking, and unresponsive when he tried to talk with her and called EMS. Pt son works at [employer] in [place] doing food prep in the kitchen with a few other people. Unknown if the pt took her morning medications today. At baseline she takes dilantin 100 mg QAM and 200 mg QPM and keppra 750 mg BID. She has been compliant with taking medication in the past. Principal Diagnosis acute respiratory failure secondary to post ictal state seizure with subtherapeutic dilantin left shoulder contusion, possible rotator cuff injury Discharge Exam The patient appeared to be doing well, but still with shoulder pain to movement Vital signs as documented. Lungs are clear to auscultation and percussion. Cardiac exam, Rhythm is regular.. No murmurs, rubs or gallops. Abdominal exam reveals normal bowel sounds, soft non tender, no masses Extremities shoulder pain to movement Neurologic exam is alert and oriented, no focal loss of strength or sensation Skin is without bruises or rashes Psychologically is without concerns for anxiety or depression Discharge Data Allergies Allergy/AdvReac Type Severity Reaction Status Date / Time allopurinol [From Zyloprim] Allergy Unknown Unknown Verified 08/24/19 16:36 lorazepam Allergy Unknown Unknown Verified 08/24/19 16:36 nortriptyline Allergy Unknown Unknown Verified 08/24/19 16:36 Opioids - Morphine Analogues Allergy Unknown Unknown Verified 08/24/19 16:36 peanut Allergy Unknown SNEEZE, Verified 08/24/19 16:36 COUGH Penicillins Allergy Unknown Unknown Verified 08/24/19 16:36 Sulfa (Sulfonamide Allergy Unknown Unknown Verified 08/24/19 16:36 Antibiotics) levofloxacin [From Levaquin] AdvReac Intermediate Possible Verified 12/02/19 08:06 seizure risedronate sodium AdvReac Intermediate Intolerence Verified 12/02/19 08:06 [From Actonel] Consultations 11/30/19 16:07 Consult Anesthesiology Stat 11/30/19 16:12 Consult Signaling Design Engineer Stat 11/30/19 16:27 ED Decision to Admit Stat 11/30/19 16:58 Consult Signaling Design Engineer Routine 11/30/19 19:50 Consult Case Management - Discharge Planning Routine Consult Signaling Design Engineer Routine 11/30/19 20:01 Consult Neurology Routine 12/01/19 09:21 Consult Neurology Routine Ordered Studies 11/30/19 15:57 CT angio chest PE protocol Stat CT head/brain wo con Stat 12/04/19 12:47 US venous doppler UE LT Routine Hospital Course (1) Acute respiratory failure with hypoxia: -Initially intubated in the ER by anesthesia team, successful extubation and transition to floor as is continuing to recover, inital respiratory failure akbar butler from seizure and post ictal state, now resolved negative COVID-19, NEGATIVE biofire -Follow UA, UCx, BCx x 2 -Initially was started on on azithromycin, vancomycin, and cefepime IV discontinued at time of transfer although concerns for aspiration pneumonia or pneumonitis was transitioned to cefdinir and axithromycin, will complete course for 5 days - CT PE IMPRESSION: 1. No evidence of pulmonary thromboembolic disease. 2. Repositioned endotracheal tube terminates 1.5 cm superior to the gladys. Enteric tube distal tip terminates in the mid gastric body 3. Subsegmental groundglass nodular opacities of the right upper and lower lobes are suggestive of an infectious or inflammatory pneumonitis 4. Bibasilar atelectasis with pleural parenchymal scarring and traction bronchiectasis 5. Mild tracheobronchial secretions 6. Cardiomegaly 7. Small hiatal hernia. (2) Seizure disorder: -Follows with Dr. Hidalgo, neurology as an outpatient - consult for further recommendation Transition to Dilantin and Keppra p.o. after IV loading After evaluation by neurology recommend to keep dilantin level 10-15 range, will increase daily dose to 200 bid on 12/04/19 outpt home nursing to check dilantin with level to Dr Montero -CT of the head negative -Seizure precautions (3) Type 2 diabetes mellitus: - Last A1C = 6.2 in March 2019 - will resume PO metformin - (4) Dyslipidemia: resume p.o. meds at time of discharge (5) Osteoporosis: (6) Osteoarthritis: This pt has left shoulder pain, I discussed this with patient and family and all agree to have her go home with PT in home instead of look for rehab -May continue Voltaren gel for pain relief her arthritis likely has impact to her persistent pain (7) Hypothyroidism: -Continue levothyroxine (8) Left arm swelling: Left arm swelling may be from her injury or infiltration from intravenous fluids subsequently Doppler negative for DVT X ray no overt fractures except for distal radius which is not correlating with her clinical signs of pain and she does have a history of a previous wrist fracture this could be residual from previous Total Time Total Time Spent Total Time Spent (In Minutes): It required greater than 30 minutes to prepare this patient for discharge Discharge Plan Discharge Items Patient Disposition: Home - Home Health Services Reason For Visit: ANEMIC Discharge Diagnosis: seizure pneumonia left shoulder contusion Activity: Per Instructions section Activity Comment: see home occupational therapy Non-emergency contact: Primary Care Provider and Neurologist Call non-emergency contact if: you have any medication questions and your symptoms worsen Follow-up/Referrals: Francesca Tillman MD [Primary Care Provider] - Diet: Regular Ambulatory Orders: Phenytoin (Dilantin) (Routine) Timeframe: 2 Days Location: Determined by Patient Ordered By: Refugio Sparks Attending Provider Instructions: please rest and recover have a dilantin level checkec this week on fridaydecember 06 please follow up with Dr Gonzalez office buy phone this week you did have a covid 19 test during your stay which was negative Coronavirus disease 2019 (COVID-19) is a virus that causes a respiratory illness. It is caused by a coronavirus called 2019 novel coronavirus (2019- nCoV). There are many types of coronavirus. Coronaviruses are a very common cause of bronchitis. They may sometimes cause lung infection(pneumonia). Symptoms can range from mild to severe respiratory illness. These viruses are also foundin some animals. COVID-19 was first found in people in [facility], in late 2019. In 2020, several cases of COVID-19 have been confirmed in the [place] Public health officials are working to find the source. How the virus spreads is not yet fully known. It may be spread through droplets of fluid that a person coughs or sneezes into the air. It may be spread if you touch a surface with virus on it, such as a handle or object, and then touch your mouth. What are the symptoms of COVID-19? Some people have no symptoms or mild symptoms. Symptoms may appear 2 to 14 days after contact with the virus. Symptoms can include: Fever Coughing Trouble breathing What are possible complications from COVID-19? In many cases, this virus can cause infection (pneumonia) in both lungs. In some cases, this can cause . How is COVID-19 diagnosed? Your healthcare provider will ask about your symptoms. He or she will also ask about your recent travel and contact with sick people. Testing for the virus is only done through the CDC. If yourhealthcare provider thinks you may have COVID- 19, he or she will work with your local health department and the CDC on testing. Follow all instructions from your healthcare provider. COVID-19 is diagnosed by: Nasal and throat swab. A cotton-tipped swab is wiped inside your nose or throat. This is done to check for viruses in your nasal mucus. Sputum culture. A small sample of mucus coughed from your lungs (sputum) is collected if you have a cough. It is checked for the virus. How is COVID-19 treated? There is currently no medicine to treat the virus. Treatment is done to help your body while it fights the virus. This is known as supportive care. Supportive care may include: Pain medicine. These include acetaminophen and ibuprofen. They are used to help ease pain and reduce fever. Bed rest. This helps your body fight the illness. For severe illness, you may need to stay in the hospital. Care during severe illness may include: IV (intravenous) fluids.These are given through a vein to help keep your body hydrated. Oxygen. Supplemental oxygen or ventilation with a breathing machine (ventilator) may be given. This is done to keep enough oxygen in your body. Are you at risk for COVID-19? If youve been to a place where people have been sick with this virus, you are at risk for infection. You are at risk if you: Recently traveled to an affected area Had contact with a sick person who recently traveled to this area Had contact with a person who was diagnosed with COVID-19 How can COVID-19 be prevented? There is no vaccine yet. The best prevention is to not have contact with the virus. The CDC advises that people should not travel to areas where there are COVID-19 outbreaks right now for any reason that is not urgent. To help prevent spreading the infection, wash your hands often, or use an alcohol-basedhand piggyback clerk. If you are in an area with COVID-19: Wash your hands often. Or use an alcohol-based hand piggyback clerk often. Only touch your eyes, nose, or mouth with clean hands. Dont have contact with people who are sick. Follow local instructions about being in public. For example, you may be told to not use public transport for a period of time. Stay away from markets that have live or animals. Wash your hands after touching any animals. Don't touch animals that may be sick. Dont share eating or drinking tools with sick people. Dont kiss someone who is sick. Clean surfaces often with disinfectant. If you were in an area with COVID-19 in the last 14 days: Call your healthcare provider. He or she can talk with local health staff to see what action may be needed. Follow all instructions from your provider. Take your temperature every morning and evening for at least 14 days. This is to check for fever. Keep a record of the readings. Keep watch for symptoms of the virus. Tell your provider right away if you have symptoms. If you were in an area with COVID-19 and have a fever or other symptoms: Dont panic. Keep in mind that other illnesses can cause similar symptoms. Stay away from work, school, and public places. Limit physical contact with family members. Don't kiss anyone or share eating or drinking utensils. Clean surfaces you touch with disinfectant. This is to help prevent the virus from spreading. Call your healthcare provider. Explain that you have been exposed to COVID-19 and have symptoms. Do this before going to any hospital. Wait for instructions. Keep in mind that healthcare staff may wear protective equipment such as masks, gowns, gloves, and eye protection. You may be put in a separate room. This is to prevent the possible virus from spreading. Tell the healthcare staff about recent travel. This includes local travel on public transport. Staff may need to find other people you have been in contact with. Follow all instructions the healthcare staff give you. If you have been diagnosed with COVID-19 Follow all instructions from your healthcare provider. Dont leave your home, except to get medical care. Call your healthcare providers office before going. They can prepare and give you instructions. This will help prevent the virus from spreading. Dont go to work, school, or public areas. Dont use public transport or taxis. Stay away from other people in your home. Have them wear face masks around you. Dont share household items or food. Wear a face mask if you can. This includes at home or in a medical facility. Cover your face with a tissue when you cough or sneeze. Throw the tissue away. Wash your hands. Wash your hands often. Caregivers should: Follow all instructions from healthcare staff. Wear a face mask and protective clothing as advised. Wash hands often. Keep track of the sick persons symptoms. Clean surfaces, fabrics, and laundry thoroughly. Keep other people away from the sick person. When to call your healthcare provider Call your healthcare provider: If youve recently traveled and have symptoms If you have been diagnosed with COVID-19 and your symptoms are worse To learn more To find out more about COVID-19, visit the CDC website at www.cdc.gov/coronavirus/2019-ncov/index.html. [employer]. [address] [place] [address]. All rights reserved. This information is not intended as a substitute for professional medical care. Always follow your healthcare professional's instructions. This information has been adapted from [employer] Pending Studies at Discharge: No Stand-Alone Forms: My [employer], Smoking Cessation Medications and DC Order Prescriptions: New phenytoin sodium extended [Dilantin Extended] 100 mg Capsule 200 mg PO BID Qty: 60 RF: 5 cefdinir 300 mg Capsule 300 mg PO BID Qty: 6 RF: 0 oxycodone 5 mg Tablet 5 mg PO Q6H PRN (Reason: pain) Qty: 15 RF: 0 Continued levetiracetam 750 mg tablet 750 mg PO BID 30 Days Qty: 60 RF: 5 diclofenac sodium [Voltaren] 1 % gel 4 gm topical QID PRN (Reason: Pain) Qty: 100 RF: 1 atorvastatin 20 mg tablet 20 mg PO QAM Qty: 90 RF: 0 metformin 500 mg tablet 500 mg PO BID Qty: 180 RF: 0 levothyroxine 50 mcg tablet 50 mcg PO QAM RF: 0 naproxen 375 mg tablet 375 mg PO BID PRN (Reason: Pain) RF: 0 Discontinued phenytoin sodium extended 100 mg capsule See Rx Instructions PO .COMPLEX Qty: 90 RF: 5 Discharge Orders: Discharge Order (Routine); Ordered 12/05/19 Ordered By: Refugio Aquino/Other Patient Handouts: Diabetes Type 2 Managing Admission Data Admit Date/Time: 11/30/19 16:51 Attending Provider: Refugio Forbes Admit Provider: Jonathan Zacarias Primary Care Provider: Francesca Tillman Other Providers: Jarvis Oliveira ; Kyra Geller ; Luciano Yip ; Jonathan Zacarias ; Reji Montero ; Yann Montez ; Edelmira Padilla ; Zane Kidd ; [facility] Other Interventions: Discharge Summary Assessment (RN) Last Done: 12/05/19 14:43 DC Date/Time DO NOT enter until pt leaves facility: 12/05/19 15:37 Coding Level of Care Code D/C Day Management >30 mins Diagnoses Acute respiratory failure with hypoxia J96.01 Seizure disorder G40.909 Type 2 diabetes mellitus E11.9 Dyslipidemia E78.5 Osteoporosis M81.0 Osteoarthritis M17.12 Osteoarthritis location: knee Osteoarthritis type: primary Laterality: left Hypothyroidism E03.9 Hypothyroidism type: acquired Left arm swelling M79.89
== END 2019-12-05 15:37 | disposition home health service (06) | DRG 208 ==
LOC: ED 15:34 → 1E 16:51 → SUATTDRO 16:51 → 1E 19:05 → 2S 12-01 16:17 → 3E 12-03 14:17

== ENCOUNTER 2020-07-28 12:23 | Inpatient (IN) ==
[2020-07-28] MEDS ORDERED: ONDANSETRON INJ 2 MG/ML 2 ML VIAL IV STA (12:43)
[2020-07-28] MEDS ORDERED: SODIUM CHLORIDE 0.9% 500 ML IV SCH (12:45)
--- NOTE | 2020-07-28 12:59 | XRay Report ---
SINGLE VIEW CHEST CLINICAL HISTORY: Atypical chest pain FINDINGS: An AP, portable, upright chest radiograph is compared to chest x-ray and chest CT dated 11/10. The examination is degraded by portable technique and patient rotation. The heart is mildly enlarged noting atherosclerotic calcification of the thoracic aorta. The pulmonary vasculature is no ncongested. Chronic interstitial thickening is similar to previous. There is bibasilar scarring/atele ctasis. No airspace consolidation or large pleural effusion is identified. No pneumothorax is seen. T he skeletal structures are osteopenic. The bony thorax is grossly intact. IMPRESSION: Mild cardiomegaly with no acute cardiopulmonary abnormality. ACT 112: Negative or not required by law. Electronically signed by: Connor Wright M.D. 07/28/2020 12:57 PM
--- NOTE | 2020-07-28 13:10 | Emergency Department Note ---
History of Present Illness General Chief complaint: Illness Time Seen by Provider: 07/28/20 12:37 Source: patient, family, RN notes reviewed and old records reviewed Mode of arrival: ambulatory Limitations: no limitations History of Present Illness Provider complaint: vomiting, abd pain Onset (ago): day(s) 2 Location: abdomen Radiation: back Severity: moderate Pain Consistency: + intermittent and + colicky Maximum Pain Intensity: 8 Current Pain Intensity: 8 Quality: + aching Relieved By: + other (vomiting) Exacerbated By: + eating Associated symptoms: no chest pain, no cough, no diaphoresis, no fever/chills, no headaches, no loss of appetite, no nausea/vomiting and no shortness of breath This is an 84-year-old female who presents emergency department complaining right upper quadrant abdominal pain that has been ongoing for at least the past 2 days. The patient reports she has been unable to keep down any of her medicines and has been vomiting. She reports vomiting makes the pain better however eating makes the pain much worse. The patient does not believe that she has her gallbladder. She denies any fevers or chills. She has not taken anything for the pain. Home Medications Medication Instructions Recorded Confirmed Type levothyroxine 50 mcg PO QAM 11/30/19 07/28/20 History naproxen 375 mg PO BID PRN 11/30/19 07/28/20 History atorvastatin 20 mg tablet 20 mg PO QAM #90 tab 12/17/19 07/28/20 Rx metformin 500 mg tablet 500 mg PO BID #180 tab 01/31/20 07/28/20 Rx Dilantin Infatabs 50 mg chewable 50 mg PO QAM #30 tab NS 04/05/20 07/28/20 Rx tablet levetiracetam 750 mg tablet 750 mg PO BID #180 tab 04/25/20 07/28/20 Rx Dilantin Extended 100 mg capsule 100 mg PO .COMPLEX #270 cap NS 06/16/20 07/28/20 Rx aspirin 81 mg chewable tablet 81 mg PO QAM 07/04/20 07/28/20 History Allergies Allergy/AdvReac Type Severity Reaction Status Date / Time allopurinol [From Zyloprim] Allergy Unknown Unknown Verified 07/28/20 14:32 lorazepam Allergy Unknown Unknown Verified 07/28/20 14:32 nortriptyline Allergy Unknown Unknown Verified 07/28/20 14:32 Opioids - Morphine Analogues Allergy Unknown Unknown Verified 07/28/20 14:32 peanut Allergy Unknown SNEEZE, Verified 07/28/20 14:32 COUGH Penicillins Allergy Unknown Unknown Verified 07/28/20 14:32 Sulfa (Sulfonamide Allergy Unknown Unknown Verified 07/28/20 14:32 Antibiotics) levofloxacin [From Levaquin] AdvReac Intermediate Possible Verified 07/28/20 14:32 seizure risedronate sodium AdvReac Intermediate Intolerence Verified 07/28/20 14:32 [From Actonel] Past Med/Surg History Medical History Acid reflux Dyslipidemia Hiatal hernia History of shingles (~2019) History of stroke 20 YRS AGO, MEMORY PROBLEM AFTER AND TROUBLE SPELLING Hypothyroidism Osteoarthritis Osteoporosis Seizure disorder Type 2 diabetes mellitus Surgical History H/O: hysterectomy History of ankle surgery L X2 History of appendectomy History of colonoscopy History of surgery on left wrist Family History Father Hypertension Mother Diabetes Myocardial infarction Brother Lung disease Diabetes Brother Diabetes Brother Diabetes Brother Diabetes Brother Diabetes Social History Smoking Status: Never smoker Second Hand Exposure: No; Do You Dip or Chew Tobacco: No; Tobacco Cessation Education Requested by Patient: No Hx Alcohol Use: No Hx Substance Use: No Preferred Language: Pashto Communication Ability: Effective Hearing Ability: Normal Volunteer Services Director Required: No Beliefs That Will Affect Care: None marital status: / Current Living Situation: Family Current Living Situation Comment: [facility] How many Children do You have: 6 Other Information That Helps Us Care for You: No Feels Safe at Home: Yes Safety Concerns: Feels Safe At This Time Seatbelt Use: always Sunscreen Use: Yes Assistive Devices: Walker Review of Systems A total of 10 systems reviewed and were otherwise negative Physical Exam Vital Signs Vital Signs - 24 hr 07/28/20 12:29 07/28/20 13:04 Temperature 36.8 C Temperature Source Oral Pulse Rate 83 Respiratory Rate 18 Blood Pressure 98/65 L Blood Pressure Mean 76 Pulse Oximetry 95 92 Oxygen Delivery Method Room Air Room Air Sepsis Recent Fever Within 48 Hours No Sepsis New/Unexplained Change in Mental Status N/A Sepsis Action Taken by Nursing No Action Required VITAL SIGNS - Vital signs and nursing notes were reviewed. GENERAL - 84-year-old female appearing stated age who is in no acute distress. Communicates well with provider and answers questions appropriately. SKIN - Without rashes. HEAD - NC/AT. EYES - PERRL with EOMI bilaterally. Sclera anicteric. Palpebral conjunctiva pink and moist with no injection noted. EARS - No deformities of external structures noted on gross examination bilaterally. No pain elicited with palpation of the tragus bilaterally. External auditory canals without discharge or otorrhea. Tympanic membranes pearly vann without retraction or bulging. No fluid or purulent material visualized behind the TM. Handle of malleus, umbo, cone of light, pars tensa/flaccid all easily visualized. NOSE - Midline and without cyanosis. No epistaxis or purulent drainage noted. Septum midline without deviation or septal hematoma noted. MOUTH/OROPHARYNX - Without perioral cyanosis. Buccal mucosa pink and moist and without leukoplakia. Tongue midline with equal elevation of palate bilaterally. No tonsillar hypertrophy, erythema, or exudates noted. dentition noted. NECK - Neck with FROM. Supple to palpation. lymphadenopathy noted. No nuchal rigidity. LUNGS - Chest wall symmetric without accessory muscle use, intercostals retractions, or central cyanosis. Normal vesicular breath sounds CTA B/L. No wheezes, rales, or rhonchi appreciated. CARDIAC - RRR with S1/S2. No murmur, rubs, or gallops appreciated. ABDOMEN - tender RUQ EXTREMITIES - No clubbing or peripheral cyanosis. No pretibial edema present. +3/5 radial, posterior tibial, and dorsalis pedis pulses palpated throughout. +5/5 strength noted in UE/LE bilaterally. NEUROLOGIC - Cranial nerves II through XII grossly intact. Sensory intact to light touch throughout. Patellar reflexes +2/4. PSYCH - A&Ox3 and cooperates fully with examiner. Pt is very pleasant and interacts well with examiner. Course Administered Medications Acetaminophen (Acetaminophen 325 Mg Tab) 650 mg PO Q4H PRN PRN Reason: Pain or Fever Stop: 08/27/20 19:30 Last Admin: 07/30/20 10:03 Dose: 650 mg Documented by: [id number] Admin: 07/29/20 13:58 Dose: 650 mg Documented by: [id number] Aspirin (Aspirin 81 Mg Ectab) 81 mg PO QAM [facility] Stop: 08/28/20 08:59 Last Admin: 07/30/20 07:42 Dose: 81 mg Documented by: [id number] Admin: 07/29/20 13:24 Dose: 81 mg Documented by: [id number] Calcium Carbonate (Calcium Carbonate 500 Mg Chewable Tab) 1,500 mg PO BID PRN PRN Reason: Indigestion Stop: 08/28/20 12:57 Last Admin: 07/29/20 14:00 Dose: 1,500 mg Documented by: [id number] Ketorolac Tromethamine (Ketorolac Tromethamine 15 Mg/Ml Vial) 10 mg IV Q6H PRN PRN Reason: Pain Stop: 08/03/20 17:28 Last Admin: 07/30/20 07:45 Dose: 10 mg Documented by: [id number] Admin: 07/30/20 00:09 Dose: 10 mg Documented by: [id number] Levetiracetam (Levetiracetam 250 Mg Tab) 750 mg PO BID [facility] Stop: 08/27/20 20:59 Last Admin: 07/30/20 07:43 Dose: 750 mg Documented by: [id number] Admin: 07/29/20 21:33 Dose: 750 mg Documented by: [id number] Admin: 07/29/20 13:24 Dose: 750 mg Documented by: [id number] Admin: 07/28/20 21:29 Dose: 750 mg Documented by: [id number] Levothyroxine Sodium (Levothyroxine Sodium 50 Mcg Tablet) 50 mcg PO DAILYBB [facility] Stop: 08/28/20 06:29 Last Admin: 07/30/20 05:19 Dose: 50 mcg Documented by: [id number] Admin: 07/29/20 05:59 Dose: Not Given Documented by: [id number] Metoclopramide HCl (Metoclopramide Hcl Inj 5 Mg/Ml 2 Ml Vial) 10 mg IV Q6H PRN PRN Reason: Nausea, use Zofran first Stop: 08/28/20 14:23 Last Admin: 07/30/20 10:03 Dose: 10 mg Documented by: [id number] Admin: 07/29/20 15:51 Dose: 10 mg Documented by: [id number] Ondansetron HCl (Ondansetron Inj 2 Mg/Ml 2 Ml Vial) 4 mg IV Q6H PRN PRN Reason: Nausea Stop: 08/27/20 19:30 Last Admin: 07/30/20 13:36 Dose: 4 mg Documented by: [id number] Admin: 07/30/20 05:43 Dose: 4 mg Documented by: [id number] Oxycodone/Acetaminophen (Oxycodone/Acetaminophen 5mg/325mg Tab) 2 tab PO Q4H PRN PRN Reason: Pain level 7-10 Stop: 08/13/20 10:20 Last Admin: 07/30/20 11:31 Dose: 2 tab Documented by: [id number] Phenytoin (Phenytoin 50 Mg Chew) 50 mg PO [facility] Stop: 08/28/20 08:59 Last Admin: 07/30/20 07:42 Dose: 50 mg Documented by: [id number] Admin: 07/29/20 13:24 Dose: 50 mg Documented by: [id number] Phenytoin Sodium (Phenytoin Sodium Er 100 Mg Cap) 100 mg PO [facility] Stop: 08/28/20 08:59 Last Admin: 07/30/20 07:43 Dose: 100 mg Documented by: [id number] Admin: 07/29/20 13:24 Dose: 100 mg Documented by: [id number] Phenytoin Sodium (Phenytoin Sodium Er 100 Mg Cap) 200 mg PO [facility]PM [facility] Stop: 08/27/20 20:59 Last Admin: 07/29/20 21:34 Dose: 200 mg Documented by: [id number] Admin: 07/28/20 21:29 Dose: 200 mg Documented by: [id number] Discontinued Medications Bupivacaine HCl (Bupivacaine 0.5 % 5 Mg/1 Ml Mpf 30ml Vial) Confirm Administered Dose 30 ml .ROUTE .STK-MED ONE Stop: 07/29/20 09:02 Last Admin: 07/29/20 09:49 Dose: 30 ml Documented by: [id number] Sodium Chloride (Nss) 500 mls @ 999 mls/hr IV .Q31M [facility] Stop: 07/28/20 13:15 Last Infusion: 07/28/20 13:34 Dose: 0 mls/hr Documented by: [id number] Admin: 07/28/20 13:03 Dose: 999 mls/hr Documented by: [id number] Sodium Chloride (Nss 1000ml) 1,000 mls @ 999 mls/hr IV .Q1H1M ONE Stop: 07/28/20 14:37 Last Infusion: 07/28/20 17:13 Dose: 0 mls/hr Documented by: [id number] Admin: 07/28/20 15:41 Dose: 999 mls/hr Documented by: [id number] Cefoxitin Sodium (Mefoxin) 2,000 mg in 60 mls @ 100 mls/hr IV NOW STA Stop: 07/28/20 15:39 Last Infusion: 07/28/20 16:07 Dose: 0 mls/hr Documented by: [id number] Admin: 07/28/20 15:37 Dose: 100 mls/hr Documented by: [id number] Sodium Chloride (Nss 1000ml) 1,000 mls @ 100 mls/hr IV .Q10H [facility] Stop: 08/27/20 19:30 Last Infusion: 07/30/20 14:40 Dose: 0 mls/hr Documented by: [id number] Admin: 07/30/20 11:32 Dose: 100 mls/hr Documented by: [id number] Infusion: 07/30/20 10:27 Dose: 100 mls/hr Documented by: [id number] Infusion: 07/30/20 09:52 Dose: 100 mls/hr Documented by: [id number] Infusion: 07/30/20 09:30 Dose: 0 mls/hr Documented by: [id number] Admin: 07/30/20 00:05 Dose: 100 mls/hr Documented by: [id number] Infusion: 07/30/20 00:05 Dose: 100 mls/hr Documented by: [id number] Admin: 07/29/20 14:15 Dose: 100 mls/hr Documented by: [id number] Infusion: 07/29/20 12:59 Dose: 100 mls/hr Documented by: [id number] Infusion: 07/29/20 11:36 Dose: 100 mls/hr Documented by: [id number] Infusion: 07/29/20 06:03 Dose: 0 mls/hr Documented by: [id number] Admin: 07/28/20 21:26 Dose: 100 mls/hr Documented by: [id number] Cefoxitin Sodium 1,000 mg/ (Dextrose) 60 mls @ 100 mls/hr IV Q6H [facility]; Protocol Stop: 07/30/20 21:59 Last Infusion: 07/30/20 10:31 Dose: 0 mls/hr Documented by: [id number] Admin: 07/30/20 09:51 Dose: 100 mls/hr Documented by: [id number] Infusion: 07/30/20 05:59 Dose: 0 mls/hr Documented by: [id number] Admin: 07/30/20 05:16 Dose: 100 mls/hr Documented by: [id number] Infusion: 07/29/20 22:15 Dose: 0 mls/hr Documented by: [id number] Admin: 07/29/20 21:33 Dose: 100 mls/hr Documented by: [id number] Infusion: 07/29/20 17:36 Dose: 0 mls/hr Documented by: [id number] Admin: 07/29/20 16:55 Dose: 100 mls/hr Documented by: [id number] Infusion: 07/29/20 13:42 Dose: 0 mls/hr Documented by: [id number] Admin: 07/29/20 11:36 Dose: 100 mls/hr Documented by: [id number] Infusion: 07/29/20 05:58 Dose: 0 mls/hr Documented by: [id number] Admin: 07/29/20 05:19 Dose: 100 mls/hr Documented by: [id number] Infusion: 07/28/20 22:10 Dose: 0 mls/hr Documented by: [id number] Admin: 07/28/20 21:29 Dose: 100 mls/hr Documented by: [id number] Metronidazole (Flagyl) 500 mg in 100 mls @ 100 mls/hr IV Q8H [facility]; Protocol Stop: 07/30/20 20:59 Last Infusion: 07/30/20 06:32 Dose: 0 mls/hr Documented by: [id number] Admin: 07/30/20 05:16 Dose: 100 mls/hr Documented by: [id number] Infusion: 07/29/20 22:43 Dose: 0 mls/hr Documented by: [id number] Admin: 07/29/20 21:33 Dose: 100 mls/hr Documented by: [id number] Infusion: 07/29/20 15:18 Dose: 0 mls/hr Documented by: [id number] Admin: 07/29/20 14:22 Dose: Not Given Documented by: [id number] Infusion: 07/29/20 13:59 Dose: 100 mls/hr Documented by: [id number] Infusion: 07/29/20 05:25 Dose: 0 mls/hr Documented by: [id number] Admin: 07/29/20 05:19 Dose: 100 mls/hr Documented by: [id number] Infusion: 07/28/20 23:30 Dose: 0 mls/hr Documented by: [id number] Admin: 07/28/20 21:41 Dose: 100 mls/hr Documented by: [id number] Promethazine HCl 6.25 mg/ (Sodium Chloride) 50.25 mls @ 201 mls/hr IV TODAY@1045 ONE Stop: 07/29/20 10:59 Last Admin: 07/29/20 14:23 Dose: Not Given Documented by: [id number] Infusion: 07/29/20 13:42 Dose: 0 mls/hr Documented by: [id number] Infusion: 07/29/20 13:38 Dose: 0 mls/hr Documented by: [id number] Admin: 07/29/20 10:48 Dose: 201 mls/hr Documented by: [id number] Ondansetron HCl 6 mg/ Dextrose 53 mls @ 200 mls/hr IV ONE ONE Stop: 07/29/20 13:45 Last Infusion: 07/29/20 14:24 Dose: 0 mls/hr Documented by: [id number] Admin: 07/29/20 13:22 Dose: 200 mls/hr Documented by: [id number] Insulin Aspart (Insulin Aspart 100 Units/Ml 3 Ml Pen) 0 units SC Q6 [facility] Stop: 08/27/20 20:59 Last Admin: 07/29/20 06:22 Dose: Not Given Documented by: [id number] Cosigned by: [id number] Admin: 07/29/20 00:40 Dose: Not Given Documented by: [id number] Cosigned by: [id number] Admin: 07/28/20 21:40 Dose: Not Given Documented by: [id number] Cosigned by: [id number] Insulin Aspart (Insulin Aspart 100 Units/Ml 3 Ml Pen) 0 units SC ACHS [facility] Stop: 08/28/20 11:29 Last Admin: 07/30/20 12:30 Dose: Not Given Documented by: [id number] Cosigned by: [id number] Admin: 07/30/20 08:42 Dose: Not Given Documented by: [id number] Cosigned by: [id number] Admin: 07/29/20 21:09 Dose: Not Given Documented by: [id number] Admin: 07/29/20 17:30 Dose: Not Given Documented by: [id number] Admin: 07/29/20 13:39 Dose: Not Given Documented by: [id number] Cosigned by: [id number] Insulin Glargine (Lantus Per Unit Charge) 0 units SQ HS [facility]; Protocol Stop: 07/29/20 23:59 Last Admin: 07/29/20 21:09 Dose: Not Given Documented by: [id number] Ioversol (Ioversol 100ml) 93 ml IV ONCE ONE Stop: 07/28/20 14:41 Last Admin: 07/28/20 14:40 Dose: 93 ml Documented by: [id number] Ioversol (Ioversol 50ml) Confirm Administered Dose 1 ml IV .STK-MED ONE Stop: 07/29/20 06:52 Last Admin: 07/29/20 13:59 Dose: Not Given Documented by: [id number] Ondansetron HCl (Ondansetron Inj 2 Mg/Ml 2 Ml Vial) 4 mg IV NOW STA Stop: 07/28/20 12:44 Last Admin: 07/28/20 13:03 Dose: 4 mg Documented by: [id number] Ondansetron HCl (Ondansetron Inj 2 Mg/Ml 2 Ml Vial) Confirm Administered Dose 4 mg .ROUTE .STK-MED ONE Stop: 07/28/20 17:29 Last Admin: 07/28/20 18:02 Dose: Not Given Documented by: [id number] Ondansetron HCl (Ondansetron Inj 2 Mg/Ml 2 Ml Vial) 4 mg IV ONCE PRN PRN Reason: PACU Use Only-Nausea/Vomiting Stop: 07/29/20 15:55 Last Admin: 07/29/20 10:30 Dose: 4 mg Documented by: [id number] Medical Decision Making Differential Diagnosis Appendicitis, ovarian cyst, ovarian torsion, ectopic , TOA, PID, infections, diverticulitis, UTI, obstruction, mesenteric ischemia, aortic pathology, inflammatory bowel disease, renal colic, PUD, pancreatitis, biliary pathology, hernia, volvulus, constipation, as well as other pathologies. Medical Records Attestation: I reviewed the patient's medical records. Home Medications Current Medication List: was personally reviewed by me Laboratory Data Attestation: I reviewed the patient's lab results. Result diagrams: 07/30/20 06:45 07/30/20 06:45 Lab Results 07/28/20 07/28/20 07/28/20 Range/Units 13:05 13:05 13:05 WBC 9.06 (4.8-10.8) K/uL RBC 3.66 L (4.2-5.4) M/uL Hgb 12.0 (12.0-16.0) g/dL Hct 35.4 L (37-47) % MCV 96.7 (80-100) fL MCH 32.8 (25-34) pg MCHC 33.9 (32-36) g/dL RDW Std Deviation 47.4 H (36.4-46.3) fL RDW Coeff of Ana 13.4 (11.5-14.5) % Plt Count 230 (130-400) K/uL MPV 9.5 (7.4-10.4) fL Immature Gran % (Auto) 0.2 % Neut % (Auto) 80.3 % Lymph % (Auto) 11.6 % [place] % (Auto) 7.7 % Eos % (Auto) 0.1 % Baso % (Auto) 0.1 % Neut # (Auto) 7.27 H (1.4-6.5) K/uL Lymph # (Auto) 1.05 L (1.2-3.4) K/uL [place] # (Auto) 0.70 H (0.11-0.59) K/uL Eos # (Auto) 0.01 (0-0.5) K/uL Baso # (Auto) 0.01 (0-0.2) K/uL Immature Gran # (Auto) 0.02 (0.00-0.02) K/uL PT 10.9 (9.0-12.0) Seconds INR 1.0 (0.9-1.1) APTT 23.4 (21.0-31.0) Seconds PTT Ratio 0.8 Sodium 132 L (136-145) mmol/L Potassium 4.1 (3.5-5.1) mmol/L Chloride 98 (98-107) mmol/L Carbon Dioxide 28 (21-32) mmol/L Anion Gap 6.0 (3-11) BUN 10 (7-18) mg/dl Creatinine 0.63 (0.6-1.2) mg/dl Est Cr Clr Drug Dosing 64.5 ml/min Est GFR ( Amer) 96.8 Est GFR (Non-Af Amer) 83.5 BUN/Creatinine Ratio 15.6 (10-20) Glucose 151 H (70-99) mg/dl Calcium 8.5 (8.5-10.1) mg/dl Total Bilirubin 0.4 (0.2-1) mg/dl AST 17 (15-37) U/L ALT 20 (12-78) U/L Alkaline Phosphatase 106 (45-117) U/L Total Creatine Kinase 104 (26-192) U/L CK-MB (CK-2) 1.7 (0.5-3.6) ng/ml CK/CKMB % Calc 1.6 (0-3.0) Troponin I < 0.015 (0-0.045) ng/ml Total Protein 7.2 (6.4-8.2) gm/dl Albumin 3.6 (3.4-5.0) gm/dl Globulin 3.6 (2.5-4.0) gm/dl Albumin/Globulin Ratio 1.0 (0.9-2) Lipase 565 H (73-393) U/L Urine Color Urine Appearance (Clear) Urine pH (4.5-7.5) Ur Specific [place] (1.000-1.030) Urine Protein (Negative) Urine Glucose (UA) (Negative) Urine Ketones (Negative) Urine Blood (Negative) Urine Nitrite (Negative) Urine Bilirubin (Negative) Urine Urobilinogen (Negative) Ur Leukocyte Esterase (Negative) Phenytoin (10-20) mcg/ml COVID-19 Eval Order SARS-CoV-2, RNA, NAAT (NEGATIVE) 07/28/20 07/28/20 07/28/20 Range/Units 13:05 14:32 15:45 WBC (4.8-10.8) K/uL RBC (4.2-5.4) M/uL Hgb (12.0-16.0) g/dL Hct (37-47) % MCV (80-100) fL MCH (25-34) pg MCHC (32-36) g/dL RDW Std Deviation (36.4-46.3) fL RDW Coeff of Ana (11.5-14.5) % Plt Count (130-400) K/uL MPV (7.4-10.4) fL Immature Gran % (Auto) % Neut % (Auto) % Lymph % (Auto) % [place] % (Auto) % Eos % (Auto) % Baso % (Auto) % Neut # (Auto) (1.4-6.5) K/uL Lymph # (Auto) (1.2-3.4) K/uL [place] # (Auto) (0.11-0.59) K/uL Eos # (Auto) (0-0.5) K/uL Baso # (Auto) (0-0.2) K/uL Immature Gran # (Auto) (0.00-0.02) K/uL PT (9.0-12.0) Seconds INR (0.9-1.1) APTT (21.0-31.0) Seconds PTT Ratio Sodium (136-145) mmol/L Potassium (3.5-5.1) mmol/L Chloride (98-107) mmol/L Carbon Dioxide (21-32) mmol/L Anion Gap (3-11) BUN (7-18) mg/dl Creatinine (0.6-1.2) mg/dl Est Cr Clr Drug Dosing ml/min Est GFR ( Amer) Est GFR (Non-Af Amer) BUN/Creatinine Ratio (10-20) Glucose (70-99) mg/dl Calcium (8.5-10.1) mg/dl Total Bilirubin (0.2-1) mg/dl AST (15-37) U/L ALT (12-78) U/L Alkaline Phosphatase (45-117) U/L Total Creatine Kinase (26-192) U/L CK-MB (CK-2) (0.5-3.6) ng/ml CK/CKMB % Calc (0-3.0) Troponin I (0-0.045) ng/ml Total Protein (6.4-8.2) gm/dl Albumin (3.4-5.0) gm/dl Globulin (2.5-4.0) gm/dl Albumin/Globulin Ratio (0.9-2) Lipase (73-393) U/L Urine Color Yellow Urine Appearance Clear (Clear) Urine pH 7.5 (4.5-7.5) Ur Specific [place] 1.011 (1.000-1.030) Urine Protein Negative (Negative) Urine Glucose (UA) Negative (Negative) Urine Ketones Negative (Negative) Urine Blood Negative (Negative) Urine Nitrite Negative (Negative) Urine Bilirubin Negative (Negative) Urine Urobilinogen Negative (Negative) Ur Leukocyte Esterase Negative (Negative) Phenytoin 17.4 (10-20) mcg/ml COVID-19 Eval [email or web address] SARS-[facility]-2, RNA, NAAT (NEGATIVE) 07/28/20 Range/Units 15:45 WBC (4.8-10.8) K/uL RBC (4.2-5.4) M/uL Hgb (12.0-16.0) g/dL Hct (37-47) % MCV (80-100) fL MCH (25-34) pg MCHC (32-36) g/dL RDW Std Deviation (36.4-46.3) fL RDW Coeff of Ana (11.5-14.5) % Plt Count (130-400) K/uL MPV (7.4-10.4) fL Immature Gran % (Auto) % Neut % (Auto) % Lymph % (Auto) % [place] % (Auto) % Eos % (Auto) % Baso % (Auto) % Neut # (Auto) (1.4-6.5) K/uL Lymph # (Auto) (1.2-3.4) K/uL [place] # (Auto) (0.11-0.59) K/uL Eos # (Auto) (0-0.5) K/uL Baso # (Auto) (0-0.2) K/uL Immature Gran # (Auto) (0.00-0.02) K/uL PT (9.0-12.0) Seconds INR (0.9-1.1) APTT (21.0-31.0) Seconds PTT Ratio Sodium (136-145) mmol/L Potassium (3.5-5.1) mmol/L Chloride (98-107) mmol/L Carbon Dioxide (21-32) mmol/L Anion Gap (3-11) BUN (7-18) mg/dl Creatinine (0.6-1.2) mg/dl Est Cr Clr Drug Dosing ml/min Est GFR ( Amer) Est GFR (Non-Af Amer) BUN/Creatinine Ratio (10-20) Glucose (70-99) mg/dl Calcium (8.5-10.1) mg/dl Total Bilirubin (0.2-1) mg/dl AST (15-37) U/L ALT (12-78) U/L Alkaline Phosphatase (45-117) U/L Total Creatine Kinase (26-192) U/L CK-MB (CK-2) (0.5-3.6) ng/ml CK/CKMB % Calc (0-3.0) Troponin I (0-0.045) ng/ml Total Protein (6.4-8.2) gm/dl Albumin (3.4-5.0) gm/dl Globulin (2.5-4.0) gm/dl Albumin/Globulin Ratio (0.9-2) Lipase (73-393) U/L Urine Color Urine Appearance (Clear) Urine pH (4.5-7.5) Ur Specific [place] (1.000-1.030) Urine Protein (Negative) Urine Glucose (UA) (Negative) Urine Ketones (Negative) Urine Blood (Negative) Urine Nitrite (Negative) Urine Bilirubin (Negative) Urine Urobilinogen (Negative) Ur Leukocyte Esterase (Negative) Phenytoin (10-20) mcg/ml COVID-19 Eval Order SARS-CoV-2, RNA, NAAT NEGATIVE (NEGATIVE) Imaging Data Radiologist's Impression: [facility], [phone] CT Scan Report Patient: CARMEN SINHA LAdceasar Date: 07/28/20MR#: [id number]: [id number][id number]: Date: 1935[facility] Zip: [place], [place] [address]Nyh: 84Location: EDSex: FRoom/Bed:Att Phy:Diagnosis: illnes sPri Phy: Francesca Tillman, MDService Date: 07/28/20Fam Phy:Interpreting Phy: Connor Wright MDAdmit Phy: Ordering Phy: Rachid Avila MD cc: ~ CT SCAN OF THE ABDOMEN AND PELVIS WITH IV CONTRAST CLINICAL HISTORY: Left upper quadrant abdominal pain. COMPARISON STUDY: No priors. TECHNIQUE: Following the IV administration of 93 cc of Optiray 320, CT scan of the abdomen and pelvis is performed from the lung bases to the proximal femora. Images are reviewed in the axial, sagittal, and coronal planes. IV contrast was administered without complication. A dose lowering technique was utilized adhering to the principles of ALARA. CT DOSE: 859.20 mGycm FINDINGS: Lung bases: The heart is normal in size and without pericardial effusion. A calcified granuloma seen at the right lung base. The lung bases are otherwise clear noting bibasilar atelectasis. There is a small hiatal hernia. Liver: The contrast-enhanced liver is normal in size, contour, and attenuation. There is no intrahepatic biliary ductal dilatation. The hepatic veins and portal veins are patent. Gallbladder: There are small calcified gallstones. The gallbladder is mildly distended, and the gallbladder wall is thickened and edematous. There is trace pericholecystic infiltration and fluid. A calcified gallstone is present within the common bile duct at the head of pancreas as seen on image #[id number]. Spleen: Normal in size and attenuation. Pancreas: Unremarkable. Adrenal glands: Unremarkable. Kidneys: The contrast enhanced kidneys demonstrate cortical atrophy and are without hydronephrosis. Scattered subcentimeter cortical hypodensities likely represent cysts but are too small for definitive characterization. The kidneys enhance symmetrically. Abdominal vasculature: The abdominal aorta is normal in course and caliber noting advanced atherosclerotic calcification. Bowel: There is moderate to advanced colonic diverticulosis without CT evidence of acute diverticulitis. No bowel obstruction is seen. The appendix is well- visualized and normal. Peritoneum: There is trace perihepatic ascites. No intraperitoneal free air is seen. There is a small fat-containing umbilical hernia. Lymphadenopathy: None. Pelvic viscera: The bladder, uterus, and adnexa are normal as visualized. Skeletal structures: The skeletal structures are osteopenic. There is advanced lumbosacral spondylosis. Sclerotic change is noted in the pubic symphysis. Mild compression deformities are seen in the lower thoracic spine. No lytic or blastic lesions are seen. IMPRESSION: 1. Cholelithiasis and choledocholithiasis with evidence of acute cholecystitis. Surgical consultation is advised. 2. Trace perihepatic ascites. 3. Moderate to advanced colonic diverticulosis without CT evidence of acute diverticulitis. 4. Hiatal hernia. ACT 112: Negative or not required by law. Electronically signed by: Connor Wright M.D. 07/28/2020 2:58 PM Dictated: 07/28/20 1448Transcribed: 07/28/20 1448 [facility], [id number] XRay Report Patient: CARMEN SINHA LAdceasar Date: 07/28/20MR#: [id number]: Amber HANSON LANEAcct ID:[id number]: [facility] Zip: [place], [place] [address]Qhj: 84Location: EDSex: FRoom/Bed:Att Phy:Diagnosis: illnessPri Phy: Francesca Tillman, SYEDAervice Date: 07/28/20Fam Phy:Interpreting Phy: Connor Wright MDAdmit Phy: Ordering Phy: Rachid Avila MD cc: ~ SINGLE VIEW CHEST CLINICAL HISTORY: Atypical chest pain FINDINGS: An AP, portable, upright chest radiograph is compared to chest x-ray and chest CT dated 11/30/2019. The examination is degraded by portable technique and patient rotation. The heart is mildly enlarged noting atherosclerotic calcification of the thoracic aorta. The pulmonary vasculature is noncongested. Chronic interstitial thickening is similar to previous. There is bibasilar scarr ing/atelectasis. No airspace consolidation or large pleural effusion is identified. No pneumothorax is seen. The skeletal structures are osteopenic. The bony thorax is grossly intact. IMPRESSION: Mild cardiomegaly with no acute cardiopulmonary abnormality. ACT 112: Negative or not required by law. Electronically signed by: Connor Wright M.D. 07/28/2020 12:57 PM Dictated: 07/28/20 1256Transcribed: 07/28/20 1256 ECG Data Attestation: I personally reviewed and interpreted this ECG as follows: Indication: + abdominal pain Rate (beats per minute): 77 ECG Intervals/blocks: + Normal QT-c (470) ECG Diana: + Normal ECG ST segments: + T-wave inversions (Inferior, lateral ); no ST depression and no ST elevation Comparison ECG Date: from (11/30/2019) Change: the following changes noted (T wave inversions improved) MDM Narrative Patient was seen and evaluated as above in room C7. Review was performed of nursing notes and vital signs. I did review pertinent previous visits and pat ient history. After obtaining a thorough history and physical examination the above work up was performed. This is an 84-year-old female who presents emergency department complaining of right upper quadrant abdominal pain. Patient's CT scan is concerning for acute choledocholithiasis. In addition patient does have an elevation in her lipase. I did discuss the case with the surgeon on-call as well as gastroenterology on-call as well as the hospitalist who did agree to admit the patient. In the meanwhile the patient was started on broad-spectrum antibiotics. An order was placed for continuous cardiac monitoring. The monitor shows a rate of 75 with Normal Sinus rhythm. The patient was evaluated during a period of high volume and high acuity while the hospital was at overcapacity during the global COVID-19 pandemic, and that diagnosis was suspected/considered upon their initial presentation. Their evaluation, treatment and testing was consistent with current guidelines for patients who present with complaints or symptoms that may be related to COVID- 19. Impression & Plan Abdominal pain, Choledocholithiasis Discharge Plan Visit Data Chief Complaint: Illness ED Provider: Rachid Avila Discharge Problem: Abdominal pain, Choledocholithiasis Patient Disposition: Admitted As Inpatient Discharge Instructions Interventions: ED Discharge Assessment Last Done: 07/28/20 18:25 Discharge Problem: Abdominal pain Qualifiers: Abdominal location: right upper quadrant Qualified Code(s): R10.11 - Right u pper quadrant pain
[2020-07-28 13:14] LABS: Basophils # (auto) 0.01 K/uL (0-0.2); Basophils % (auto) 0.1 %; Eosinophils # (auto) 0.01 K/uL (0-0.5); Eosinophils % (auto) 0.1 %; Hematocrit (blood only) 35.4 % (37-47); Immature Granulocytes # (auto) 0.02 K/uL (0.00-0.02); Immature Granulocytes % (auto) 0.2 %; Lymphocytes # (auto) 1.05 K/uL (1.2-3.4); Lymphocytes % (auto) 11.6 %; Mean Corpuscular Hemoglobin 32.8 pg (25-34); Mean Corpuscular Hgb Conc 33.9 g/dL (32-36); Mean Corpuscular Volume 96.7 fL (80-100); Mean Platelet Volume 9.5 fL (7.4-10.4); Monocytes % (auto) 7.7 %; Neutrophils # (auto) 7.27 K/uL (1.4-6.5); Neutrophils % (auto) 80.3 %; Platelet Count 230 K/uL (130-400); RDW Coefficient of Variation 13.4 % (11.5-14.5); RDW Standard Deviation 47.4 fL (36.4-46.3); Red Blood Count 3.66 M/uL (4.2-5.4); White Blood Count 9.06 K/uL (4.8-10.8)
[2020-07-28 13:24] LABS: Partial Thromboplastin Ratio 0.8; Partial Thromboplastin Time 23.4 Seconds (21.0-31.0); Prothrombin Time 10.9 Seconds (9.0-12.0)
[2020-07-28 13:30] LABS: Alanine Aminotransferase 20 U/L (12-78); Albumin Level 3.6 gm/dl (3.4-5.0); Aspartate Aminotransferase 17 U/L (15-37); BUN Creatinine Ratio 15.6 (10-20); Blood Urea Nitrogen 10 mg/dl (7-18); Calcium 8.5 mg/dl (8.5-10.1); Carbon Dioxide 28 mmol/L (21-32); Chloride 98 mmol/L (98-107); Creatinine Clr Calc Pharmacy 64.5 ml/min; Est GFR (African American) 96.8; Est GFR (Non-African American) 83.5; Glucose 151 mg/dl (70-99); Lipase 565 U/L (73-393); Potassium 4.1 mmol/L (3.5-5.1); Sodium 132 mmol/L (136-145)
[2020-07-28 13:36] LABS: Alkaline Phosphatase 106 U/L (45-117); Bilirubin,Total 0.4 mg/dl (0.2-1); Creatine Kinase 104 U/L (26-192); Creatine Kinase MB 1.7 ng/ml (0.5-3.6); Globulin 3.6 gm/dl (2.5-4.0); Total Protein 7.2 gm/dl (6.4-8.2); Troponin I < 0.015 ng/ml (0-0.045)
[2020-07-28] MEDS ORDERED: SODIUM CHLORIDE 0.9% 1000ML 1,000 ML IV ONE (13:37)
[2020-07-28] MEDS ORDERED: IOVERSOL 100ml IV ONE (14:40)
[2020-07-28 14:45] LABS: Appearance Urine Clear (Clear); Bilirubin Urine Negative (Negative); Blood Urine Negative (Negative); Color Urine Yellow; Glucose Urine UA Negative (Negative); Ketones Urine Negative (Negative); Leukocyte Esterase Urine Negative (Negative); Nitrite Urine Negative (Negative); Protein Urine Negative (Negative); Specific Gravity Urine 1.011 (1.000-1.030); Urobilinogen Urine Negative (Negative); pH Urine 7.5 (4.5-7.5)
--- NOTE | 2020-07-28 14:59 | CT Scan Report ---
CT SCAN OF THE ABDOMEN AND PELVIS WITH IV CONTRAST CLINICAL HISTORY: Left upper quadrant abdominal pain. COMPARISON STUDY: No priors. TECHNIQUE: Following the IV administration of 93 cc of Optiray 320, CT scan of the abdomen and pelvi s is performed from the lung bases to the proximal femora. Images are reviewed in the axial, sagittal , and coronal planes. IV contrast was administered without complication. A dose lowering technique wa s utilized adhering to the principles of ALARA. CT DOSE: 859.20 mGycm FINDINGS: Lung bases: The heart is normal in size and without pericardial effusion. A calcified granuloma seen at the right lung base. The lung bases are otherwise clear noting bibasilar atelectasis. There is a s mall hiatal hernia. Liver: The contrast-enhanced liver is normal in size, contour, and attenuation. There is no intrahepa tic biliary ductal dilatation. The hepatic veins and portal veins are patent. Gallbladder: There are small calcified gallstones. The gallbladder is mildly distended, and the gallb ladder wall is thickened and edematous. There is trace pericholecystic infiltration and fluid. A calc ified gallstone is present within the common bile duct at the head of pancreas as seen on image #164. Spleen: Normal in size and attenuation. Pancreas: Unremarkable. Adrenal glands: Unremarkable. Kidneys: The contrast enhanced kidneys demonstrate cortical atrophy and are without hydronephrosis. S cattered subcentimeter cortical hypodensities likely represent cysts but are too small for definitive characterization. The kidneys enhance symmetrically. Abdominal vasculature: The abdominal aorta is normal in course and caliber noting advanced atheroscle rotic calcification. Bowel: There is moderate to advanced colonic diverticulosis without CT evidence of acute diverticulit is. No bowel obstruction is seen. The appendix is well-visualized and normal. Peritoneum: There is trace perihepatic ascites. No intraperitoneal free air is seen. There is a small fat-containing umbilical hernia. Lymphadenopathy: None. Pelvic viscera: The bladder, uterus, and adnexa are normal as visualized. Skeletal structures: The skeletal structures are osteopenic. There is advanced lumbosacral spondylosi s. Sclerotic change is noted in the pubic symphysis. Mild compression deformities are seen in the low er thoracic spine. No lytic or blastic lesions are seen. IMPRESSION: 1. Cholelithiasis and choledocholithiasis with evidence of acute cholecystitis. Surgical consultation is advised. 2. Trace perihepatic ascites. 3. Moderate to advanced colonic diverticulosis without CT evidence of acute diverticulitis. 4. Hiatal hernia. ACT 112: Negative or not required by law. Electronically signed by: Connor Wright M.D. 07/28/2020 2:58 PM
[2020-07-28] MEDS ORDERED: cefOXitin 2,000 MG/60 ML BAG IV STA (15:04)
--- NOTE | 2020-07-28 15:19 | Surgery Consultation ---
Date of Consultation July 28, 2020 Assessment & Plan (1) Gallstone pancreatitis: 84 yr old woman with gallstone pancreatitis and CT scan showing a stone in the common bile duct at level of pancreas. Needs GI evaluation for possible ERCP prior to consideration of cholecystectomy. Agree with NPO, IV antibiotics in interim. Once common duct stone has been removed, will plan on laparoscopic cholecystectomy. Risks of procedure including bleeding, infection, conversion to open, postop diarrhea/ intolerance to foods, bile leak all reviewed. Expected hospital stay and 2 week recovery period discussed. Consent signed. Discussed with Dr. Ovalles and it is reasonable to consider combined ercp/ cholecystectomy. She is currently on for tomorrow AM for both procedures. (2) Type 2 diabetes mellitus: (3) Seizure disorder: History of Present Illness Reason for Consultation: abdominal pain Requesting Physician: Rachid Avila MD History of Present Illness 84 yr old woman presents to ER with two days of nausea, vomiting and left upper quadrant abdominal pain. Pain radiates to epigastrium, down into right lower abdomen and to right shoulder blade. Intense at times, persistent. Had a pork chop for dinner last night but was unable to keep anything down including her medications. No prior similar episodes. No jaundice. No relieving factors. Allergies Allergy/AdvReac Type Severity Reaction Status Date / Time allopurinol [From Zyloprim] Allergy Unknown Unknown Verified 07/28/20 14:32 lorazepam Allergy Unknown Unknown Verified 07/28/20 14:32 nortriptyline Allergy Unknown Unknown Verified 07/28/20 14:32 Opioids - Morphine Analogues Allergy Unknown Unknown Verified 07/28/20 14:32 peanut Allergy Unknown SNEEZE, Verified 07/28/20 14:32 COUGH Penicillins Allergy Unknown Unknown Verified 07/28/20 14:32 Sulfa (Sulfonamide Allergy Unknown Unknown Verified 07/28/20 14:32 Antibiotics) levofloxacin [From Levaquin] AdvReac Intermediate Possible Verified 07/28/20 14:32 seizure risedronate sodium AdvReac Intermediate Intolerence Verified 07/28/20 14:32 [From Actonel] Home Medications Medication Instructions Recorded Confirmed Type levothyroxine 50 mcg PO QAM 11/30/19 07/28/20 History naproxen 375 mg PO BID PRN 11/30/19 07/28/20 History atorvastatin 20 mg tablet 20 mg PO QAM #90 tab 12/17/19 07/28/20 Rx metformin 500 mg tablet 500 mg PO BID #180 tab 01/31/20 07/28/20 Rx Dilantin Infatabs 50 mg chewable 50 mg PO QAM #30 tab NS 04/05/20 07/28/20 Rx tablet levetiracetam 750 mg tablet 750 mg PO BID #180 tab 04/25/20 07/28/20 Rx Dilantin Extended 100 mg capsule 100 mg PO .COMPLEX #270 cap NS 06/16/20 07/28/20 Rx aspirin 81 mg chewable tablet 81 mg PO QAM 07/04/20 07/28/20 History Patient History Medical History Acid reflux Dyslipidemia Hiatal hernia History of shingles (~2018) History of stroke 20 YRS AGO, MEMORY PROBLEM AFTER AND TROUBLE SPELLING Hypothyroidism Osteoarthritis Osteoporosis Seizure disorder Type 2 diabetes mellitus Surgical History (Updated 07/28/20 @ 16:31 by Roslyn Pond MD) H/O: hysterectomy History of ankle surgery L X2 History of appendectomy History of colonoscopy History of surgery on left wrist Family History Father Hypertension Mother Diabetes Myocardial infarction Brother Lung disease Diabetes Brother Diabetes Brother Diabetes Brother Diabetes Brother Diabetes Social History (Updated 07/28/20 @ 16:32 by Roslyn Pond MD) Smoking Status: Never smoker Hx Alcohol Use: No Hx Substance Use: No Preferred Language: Congolese Communication Ability: Effective Hearing Ability: Normal Knowledge Management Advisor Required: No Beliefs That Will Affect Care: None marital status: / Current Living Situation: Other How many Children do You have: 6 Feels Safe at Home: Yes Seatbelt Use: always Sunscreen Use: Yes Assistive Devices: Cane Review of Systems Review of Systems: All systems reviewed & are unremarkable except as noted in HPI & below memory issues since stroke, history of constipation for which she needed stool softeners at one time no cardiac or pulmonary complaints seizure disorder on meds Physical Exam Constitutional: WD/WN, vitals as above Eyes: PERRL, conjunctivae normal, anicteric sclerae Respiratory: normal respiratory effort, lungs clear to auscultation Cardiovascular: RRR, no murmur, no edema Gastrointestinal (Abdomen): Inspection/Auscultation: abdomen normal to inspection, normal bowel sounds, + visible herniation (small reducible umbilical hernia) and + abdominal surgical scar (lower midline) Percussion/Palpation: + abdomen tender (epigastrium, both left and right upper quadrants) and abdomen soft; no hepatosplenomegaly Musculoskeletal: Head/Neck/Chest: normocephalic and head atraumatic Extremities: extremities normal to inspection Neurologic: awake; no focal motor deficits Psychiatric: A+Ox3, euthymic affect Results & Data ([facility]) Vital Signs (Past 12 Hours) Vital Signs Temp Pulse Resp BP Pulse Ox 07/28/20 15:00 79 20 125/59 L 91 07/28/20 14:00 73 18 133/80 92 07/28/20 13:30 75 20 138/72 94 07/28/20 13:04 92 07/28/20 12:29 36.8 C 83 18 98/65 L 95 Laboratory Results Abnormal lab results 07/28/20 07/28/20 Range/Units 13:05 13:05 RBC 3.66 L (4.2-5.4) M/uL Hct 35.4 L (37-47) % RDW Std Deviation 47.4 H (36.4-46.3) fL Neut # (Auto) 7.27 H (1.4-6.5) K/uL Lymph # (Auto) 1.05 L (1.2-3.4) K/uL [place] # (Auto) 0.70 H (0.11-0.59) K/uL Sodium 132 L (136-145) mmol/L Glucose 151 H (70-99) mg/dl Lipase 565 H (73-393) U/L Diagnostic Findings CT SCAN OF THE ABDOMEN AND PELVIS WITH IV CONTRAST CLINICAL HISTORY: Left upper quadrant abdominal pain. COMPARISON STUDY: No priors. TECHNIQUE: Following the IV administration of 93 cc of Optiray 320, CT scan of the abdomen and pelvis is performed from the lung bases to the proximal femora. Images are reviewed in the axial, sagittal, and coronal planes. IV contrast was administered without complication. A dose lowering technique was utilized adhering to the principles of ALARA. CT DOSE: 859.20 mGycm FINDINGS: Lung bases: The heart is normal in size and without pericardial effusion. A calcified granuloma seen at the right lung base. The lung bases are otherwise clear noting bibasilar atelectasis. There is a small hiatal hernia. Liver: The contrast-enhanced liver is normal in size, contour, and attenuation. There is no intrahepatic biliary ductal dilatation. The hepatic veins and portal veins are patent. Gallbladder: There are small calcified gallstones. The gallbladder is mildly distended, and the gallbladder wall is thickened and edematous. There is trace pericholecystic infiltration and fluid. A calcified gallstone is present within the common bile duct at the head of pancreas as seen on image #164. Spleen: Normal in size and attenuation. Pancreas: Unremarkable. Adrenal glands: Unremarkable. Kidneys: The contrast enhanced kidneys demonstrate cortical atrophy and are without hydronephrosis. Scattered subcentimeter cortical hypodensities likely represent cysts but are too small for definitive characterization. The kidneys enhance symmetrically. Abdominal vasculature: The abdominal aorta is normal in course and caliber noting advanced atherosclerotic calcification. Bowel: There is moderate to advanced colonic diverticulosis without CT evidence of acute diverticulitis. No bowel obstruction is seen. The appendix is well- visualized and normal. Peritoneum: There is trace perihepatic ascites. No intraperitoneal free air is seen. There is a small fat-containing umbilical hernia. Lymphadenopathy: None. Pelvic viscera: The bladder, uterus, and adnexa are normal as visualized. Skeletal structures: The skeletal structures are osteopenic. There is advanced lumbosacral spondylosis. Sclerotic change is noted in the pubic symphysis. Mild compression deformities are seen in the lower thoracic spine. No lytic or blastic lesions are seen. IMPRESSION: 1. Cholelithiasis and choledocholithiasis with evidence of acute cholecystitis. Surgical consultation is advised. 2. Trace perihepatic ascites. 3. Moderate to advanced colonic diverticulosis without CT evidence of acute diverticulitis. 4. Hiatal hernia.
--- NOTE | 2020-07-28 16:00 | Gastrointestinal Consultation ---
Date of Consultation July 28, 2020 Assessment & Plan (1) Gallstone pancreatitis: Mild gallstone pancreatitis. - Cautious IV hydration. - NPO, except meds. - Plan for ERCP tomorrow by Dr. Rodas. - Surgery aware (per Dr. Rodas) and may also arrange cholecystectomy soon. Present on Admission?: Yes (2) Choledocholithiasis: As above. Present on Admission?: Yes Supervising Physician Co-Signing Physician Notes I performed a history and physical examination of the patient today, including specifically on physical exam - soft abdomen. I have discussed the patient's management with the advanced practitioner. Please refer to the nurse practitioner's note for the documented findings and plan of care. Mild acute gallstone pancreatitis. Plan for ERCP tomorrow. History of Present Illness Reason for Consultation: choledocholithiasis Requesting Physician: Dr. Avila (ED) Attending Physician: [facility] [place] History of Present Illness Ms. Agata Swift is an [address] Tillman with a hx of DM-2, hyperlipidemids, hypothyroid, seizures, CVA (not recent), Hiatal hernia and osteoarthritis/osteoporosis who came to the ED today for nausea, vomiting upper abd pain. Abd pain has been present intermittently for a month but nausea vomiting, diarrhea started yesterday. She believes she vomited "all night long," last night with vomiting and several trips to the bathroom for diarrhea. She denies any CP, SOB, yellow eyes, yellow skin, dark urine or giovani colored stools. No blood in BMs. On arrival, CT scan shows gallstones and choledocholithiasis. No leukocytosis or fevers/chills, LFTs are normal but lipase is elevated in the 500's. Currently upper abd pain is rated a 6 of 10. Allergies Allergy/AdvReac Type Severity Reaction Status Date / Time allopurinol [From Zyloprim] Allergy Unknown Unknown Verified 07/28/20 14:32 lorazepam Allergy Unknown Unknown Verified 07/28/20 14:32 nortriptyline Allergy Unknown Unknown Verified 07/28/20 14:32 Opioids - Morphine Analogues Allergy Unknown Unknown Verified 07/28/20 14:32 peanut Allergy Unknown SNEEZE, Verified 07/28/20 14:32 COUGH Penicillins Allergy Unknown Unknown Verified 07/28/20 14:32 Sulfa (Sulfonamide Allergy Unknown Unknown Verified 07/28/20 14:32 Antibiotics) levofloxacin [From Levaquin] AdvReac Intermediate Possible Verified 07/28/20 14:32 seizure risedronate sodium AdvReac Intermediate Intolerence Verified 07/28/20 14:32 [From Actonel] Home Medications Medication Instructions Recorded Confirmed Type levothyroxine 50 mcg PO QAM 11/30/19 07/28/20 History naproxen 375 mg PO BID PRN 11/30/19 07/28/20 History atorvastatin 20 mg tablet 20 mg PO QAM #90 tab 12/17/19 07/28/20 Rx metformin 500 mg tablet 500 mg PO BID #180 tab 01/31/20 07/28/20 Rx Dilantin Infatabs 50 mg chewable 50 mg PO QAM #30 tab NS 04/05/20 07/28/20 Rx tablet levetiracetam 750 mg tablet 750 mg PO BID #180 tab 04/25/20 07/28/20 Rx Dilantin Extended 100 mg capsule 100 mg PO .COMPLEX #270 cap NS 06/16/20 07/28/20 Rx aspirin 81 mg chewable tablet 81 mg PO QAM 07/04/20 07/28/20 History Patient History Medical History Acid reflux Dyslipidemia Hiatal hernia History of shingles (~2018) History of stroke Hypothyroidism Osteoarthritis Osteoporosis Seizure disorder Type 2 diabetes mellitus Surgical History History of ankle surgery History of colonoscopy History of surgery on left wrist Family History Father Hypertension Mother Diabetes Myocardial infarction Brother Lung disease Diabetes Brother Diabetes Brother Diabetes Brother Diabetes Brother Diabetes Social History Smoking Status: Never smoker Hx Alcohol Use: No Hx Substance Use: No Preferred Language: [place] Communication Ability: Effective Hearing Ability: Normal 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 Beliefs That Will Affect Care: None marital status: / Current Living Situation: Other Current Living Situation Comment: mech vent/ sedated- unable to obtain How many Children do You have: 6 Feels Safe at Home: Yes Seatbelt Use: always Sunscreen Use: Yes Assistive Devices: Cane Physical Exam Constitutional: WD/WN, vitals as above Eyes: PERRL, conjunctivae normal, anicteric sclerae ENMT: external ear and nose normal, oropharynx normal Neck: trachea midline, no thyromegaly Respiratory: normal respiratory effort, lungs clear to auscultation Cardiovascular: RRR, no murmur, no edema Gastrointestinal (Abdomen): Inspection/Auscultation: + abdomen distended (mildly) Percussion/Palpation: + abdomen tender (diffuse upper abd tenderness) and abdomen soft Skin: no rashes, warm and dry Neurologic: PERRL, EOMI, accommodation nl, no face palsy, no dysarthria Psychiatric: A+Ox3, euthymic affect Lymphatic: no cervical or axillary lymphadenopathy Results & Data ([facility]) Vital Signs (Past 12 Hours) Vital Signs Temp Pulse Resp BP Pulse Ox 07/28/20 15:30 79 19 127/60 93 07/28/20 15:00 79 20 125/59 L 91 07/28/20 14:00 73 18 133/80 92 07/28/20 13:30 75 20 138/72 94 07/28/20 13:04 92 07/28/20 12:29 36.8 C 83 18 98/65 L 95 Laboratory Results WBC 9, Hb 12, Hct, [place] 230, Na 132, K 4.1, BUN 10, Cr 0.6. LFTs normal. Lipase 565. Diagnostic Findings CT abd pelvis with IV contrast today: 1. Cholelithiasis and choledocholithiasis with evidence of acute cholecystitis. Surgical consultation is advised. 2. Trace perihepatic ascites. 3. Moderate to advanced colonic diverticulosis without CT evidence of acute diverticulitis. 4. Hiatal hernia.
[2020-07-28] MEDS ORDERED: ONDANSETRON INJ 2 MG/ML 2 ML VIAL ONE (17:28)
[2020-07-28] MEDS ORDERED: DEXTROSE 50% 50 ML SYRINGE IV PRN (19:31)
[2020-07-28] MEDS ORDERED: GLUCOSE 10 TABS/TUBE PO PRN (19:31)
[2020-07-28] MEDS ORDERED: GLUCAGON FOR INJ 1 MG VIAL SQ PRN (19:31)
[2020-07-28] MEDS ORDERED: CARBOHYDRATES FOR HYPOGLYCEMIA PO PRN (19:31)
[2020-07-28] MEDS ORDERED: GLUCOSE 40% GEL 15 GM TUBE PO PRN (19:31)
--- NOTE | 2020-07-28 19:38 | History & Physical Report ---
Date of Service July 28, 2020 Assessment & Plan (1) Choledocholithiasis: Patient seen by gastroenterology for kidney stone that is at the head of the pancreas N.p.o. tonight except for meds ERCP planned for tomorrow with Dr. Rodas from [facility] Risk of pancreatitis following procedure discussed with patient and her daughter Further management per gastroenterology (2) Gallstone pancreatitis: Patient seen by Dr. Roslyn Pond of general surgery ERCP scheduled for tomorrow Most likely Dr. Pond will perform cholecystectomy immediately following the ERCP while the patient is still sedated Further management per surgery (3) Type 2 diabetes mellitus: Patient on Metformin at home This is been held and patient has been started on NovoLog sliding scale insulin Patient is n.p.o. tonight BSG ACHS Hemoglobin A1c was 6.9% on 12/01/19 Repeat hemoglobin A1c is ordered for a.m. labs tomorrow (4) Seizure disorder: Seizure history since age 14 Continue usual home medications No recent seizures per patient and per patient's daughter Laboratory Tests 07/28/20 13:05 Phenytoin 17.4 (5) H/O: CVA (cerebrovascular accident): Continue aspirin Outpatient management (6) Hypothyroidism: Levothyroxine 50 mcg p.o. daily at home Hold at this time (7) Acid reflux: Controlled Patient states that she does not take any PPI or H2 rohan at home Follow symptomatically (8) DVT prophylaxis: No chemical prophylaxis in light of surgery tomorrow SCOTT pugh and Suzan ordered Admission and Anticipated Discharge Date Admission Date: July 28, 2020 History of Present Illness Primary Care Provider: Francesca Tillman MD Attending: Dr. Pickens This is an 84-year-old female who presented with abdominal pain and was found to have an inflamed gallbladder and gallstone in the common bile duct at the head of the pancreas. She was seen by gastroenterology and will undergo ERCP tomorrow with Dr. Rodas. She also was evaluated by Dr. Roslyn Pond and will most likely undergo cholecystectomy following the ERCP. She is currently n.p.o. except for meds. The patient has a past medical history including diabetes mellitus type 2 on Metformin, dyslipidemia, history of cerebrovascular accident x2, osteoporosis, osteoarthritis, hypothyroidism, GERD, seizure disorder since age 14. She states that she was doing well until yesterday at approximately 4 in the afternoon when she began to have nausea. This was followed by vomiting and then later by diarrhea. The nausea and vomiting continued throughout the night and into this morning. She presented to the emergency department and had a CT abdomen pelvis which showed cholecystitis and choledocholithiasis with a calcified gallstone at the head of the pancreas. She has no evidence of pancreatitis on CT scan. She has no hematochezia, melena, bright red blood per rectum. Aside from her abdominal pain, she has no other pain. She denies fever, chills, sweats, rigors. She has no respiratory complaints. She has no chest pain. She was Covid tested and this was - 07/28/2020. Allergies Allergy/AdvReac Type Severity Reaction Status Date / Time allopurinol [From Zyloprim] Allergy Unknown Unknown Verified 07/28/20 14:32 lorazepam Allergy Unknown Unknown Verified 07/28/20 14:32 nortriptyline Allergy Unknown Unknown Verified 07/28/20 14:32 Opioids - Morphine Analogues Allergy Unknown Unknown Verified 07/28/20 14:32 peanut Allergy Unknown SNEEZE, Verified 07/28/20 14:32 COUGH Penicillins Allergy Unknown Unknown Verified 07/28/20 14:32 Sulfa (Sulfonamide Allergy Unknown Unknown Verified 07/28/20 14:32 Antibiotics) levofloxacin [From Levaquin] AdvReac Intermediate Possible Verified 07/28/20 14:32 seizure risedronate sodium AdvReac Intermediate Intolerence Verified 07/28/20 14:32 [From Actonel] Home Medications Medication Instructions Recorded Confirmed Type levothyroxine 50 mcg PO QAM 11/30/19 07/28/20 History naproxen 375 mg PO BID PRN 11/30/19 07/28/20 History atorvastatin 20 mg tablet 20 mg PO QAM #90 tab 12/17/19 07/28/20 Rx metformin 500 mg tablet 500 mg PO BID #180 tab 01/31/20 07/28/20 Rx Dilantin Infatabs 50 mg chewable 50 mg PO QAM #30 tab NS 04/05/20 07/28/20 Rx tablet levetiracetam 750 mg tablet 750 mg PO BID #180 tab 04/25/20 07/28/20 Rx Dilantin Extended 100 mg capsule 100 mg PO .COMPLEX #270 cap NS 06/16/20 07/28/20 Rx aspirin 81 mg chewable tablet 81 mg PO QAM 07/04/20 07/28/20 History Past Med/Surg History Medical History Acid reflux Dyslipidemia Hiatal hernia History of shingles (~2018) History of stroke 20 YRS AGO, MEMORY PROBLEM AFTER AND TROUBLE SPELLING Hypothyroidism Osteoarthritis Osteoporosis Seizure disorder Type 2 diabetes mellitus Surgical History H/O: hysterectomy History of ankle surgery L X2 History of appendectomy History of colonoscopy History of surgery on left wrist Family History Father Hypertension Mother Diabetes Myocardial infarction Brother Lung disease Diabetes Brother Diabetes Brother Diabetes Brother Diabetes Brother Diabetes Social History Smoking Status: Never smoker Second Hand Exposure: No; Do You Dip or Chew Tobacco: No; Tobacco Cessation Education Requested by Patient: No Hx Alcohol Use: No Hx Substance Use: No Preferred Language: Cameroonian Communication Ability: Effective Hearing Ability: Normal Front Elevator Operator Required: No Beliefs That Will Affect Care: None marital status: / Current Living Situation: Family Current Living Situation Comment: [facility] How many Children do You have: 6 Other Information That Helps Us Care for You: No Feels Safe at Home: Yes Safety Concerns: Feels Safe At This Time Seatbelt Use: always Sunscreen Use: Yes Assistive Devices: Cane Review of Systems Review of Systems: All systems reviewed & are unremarkable except as noted in HPI & below Physical Exam Physical Exam: GENERAL : No acute distress EYES: No icterus, gaze conjugate NOSE: No evidence of epistaxis MOUTH: No lesions or candidiasis NECK: Supple LUNGS: CTA B/L, no wheezes, rales or rhonchi HEART: Regular, rate controlled ABDOMEN: Soft, ND, BS Present. Tender to palpation. Positive for guarding. Positive for rebound tenderness EXTREMITIES: No LE edema, pedal pulses intact NEURO: A&OX3 Results & Data Results & Data ([facility]) Vital Signs (Past 12 Hours) Vital Signs Temp Pulse Resp BP Pulse Ox 07/28/20 18:00 76 18 124/54 L 96 07/28/20 17:30 88 24 133/52 L 88 L 07/28/20 17:00 78 20 136/61 92 07/28/20 16:01 84 20 125/68 95 07/28/20 15:30 79 19 127/60 93 07/28/20 15:00 79 20 125/59 L 91 07/28/20 14:00 73 18 133/80 92 07/28/20 13:30 75 20 138/72 94 07/28/20 13:04 92 07/28/20 12:29 36.8 C 83 18 98/65 L 95 Laboratory Results 07/28/20 13:05 07/28/20 13:05 07/28/20 13:05 Troponin I < 0.015 INR 1.0 (0.9-1.1) 07/28/20 13:[address] SCAN OF THE ABDOMEN AND PELVIS WITH IV CONTRAST CLINICAL HISTORY: Left upper quadrant abdominal pain. COMPARISON STUDY: No priors. TECHNIQUE: Following the IV administration of 93 cc of Optiray 320, CT scan of the abdomen and pelvis is performed from the lung bases to the proximal femora. Images are reviewed in the axial, sagittal, and coronal planes. IV contrast was administered without complication. A dose lowering technique was utilized adhering to the principles of ALARA. CT DOSE: 859.20 mGycm FINDINGS: Lung bases: The heart is normal in size and without pericardial effusion. A calcified granuloma seen at the right lung base. The lung bases are otherwise clear noting bibasilar atelectasis. There is a small hiatal hernia. Liver: The contrast-enhanced liver is normal in size, contour, and attenuation. There is no intrahepatic biliary ductal dilatation. The hepatic veins and portal veins are patent. Gallbladder: There are small calcified gallstones. The gallbladder is mildly distended, and the gallbladder wall is thickened and edematous. There is trace pericholecystic infiltration and fluid. A calcified gallstone is present within the common bile duct at the head of pancreas as seen on image #164. Spleen: Normal in size and attenuation. Pancreas: Unremarkable. Adrenal glands: Unremarkable. Kidneys: The contrast enhanced kidneys demonstrate cortical atrophy and are without hydronephrosis. Scattered subcentimeter cortical hypodensities likely represent cysts but are too small for definitive characterization. The kidneys enhance symmetrically. Abdominal vasculature: The abdominal aorta is normal in course and caliber noting advanced atherosclerotic calcification. Bowel: There is moderate to advanced colonic diverticulosis without CT evidence of acute diverticulitis. No bowel obstruction is seen. The appendix is well- visualized and normal. Peritoneum: There is trace perihepatic ascites. No intraperitoneal free air is seen. There is a small fat-containing umbilical hernia. Lymphadenopathy: None. Pelvic viscera: The bladder, uterus, and adnexa are normal as visualized. Skeletal structures: The skeletal structures are osteopenic. There is advanced lumbosacral spondylosis. Sclerotic change is noted in the pubic symphysis. Mild compression deformities are seen in the lower thoracic spine. No lytic or blastic lesions are seen. IMPRESSION: 1. Cholelithiasis and choledocholithiasis with evidence of acute cholecystitis. Surgical consultation is advised. 2. Trace perihepatic ascites. 3. Moderate to advanced colonic diverticulosis without CT evidence of acute diverticulitis. 4. Hiatal hernia. ACT 112: Negative or not required by law. Electronically signed by: Connor Wright M.D. 07/28/2020 2:58 PM Code Status & VTE Plan Code Status Patient request DNR/DNI. This was reinforced by the patient's daughter who was present VTE Prophylaxis Plan VTE Prophylaxis will be ordered: Yes Reason for no VTE drug order: Contraindicated Supervising Physician Co-Signing Physician Notes I personally saw and examined the patient. I verified all villarreal points and agree with MATHEW Osorio with the following exceptions and/or additions: 84 year old female with 1 day history of nausea, vomiting and abdominal pain. CT with concern for acute rigoberto with choledocholithiasis. O/E RUQ and epigastric pain on palpation, BS +ve, Chest CTAB, HS 1+2, no murmurs. Choledocholithiasis / Gallstone pancreatitis - plan for ERCP per GI tomorrow. Possible acute cholecystitis - suspected on CT, elevated neutrophil count and RUQ pain on exam. Although normal LFTs would suggests against this diagnosis. Will cover with Cefoxitin and metronidazole pending cholecystectomy planned for tomorrow. PG Care Time/CCT Total # of Minutes Spent Total Time Spent with Patient: Total time spent is greater than 50% in coordination of care (as documented) at patient's floor/unit and/or counseling patient: 70 minutes including discussion with other providers and consultants Coding Level of Care Code 86509 Initial Inpt Care Lvl 3 Diagnoses Choledocholithiasis K80.50 Gallstone pancreatitis K85.10 Type 2 diabetes mellitus E11.9 Seizure disorder G40.909 H/O: CVA (cerebrovascular accident) Z86.73 Hypothyroidism E03.9 Hypothyroidism type: acquired Acid reflux K21.9 DVT prophylaxis Z29.9 Time Spent (min) 60 (1) Hypothyroidism Hypothyroidism type: acquired Qualified Code(s): E03.9 - Hypothyroidism, unspecified
[2020-07-28] MEDS ORDERED: PHARMACY GLYCEMIC MGMT CONSULT PRN (20:28)
[2020-07-28] MEDS: SODIUM CHLORIDE 0.9% 1000ML 1,000 ML IV SCH (21:26)
[2020-07-28] MEDS: PHENYTOIN SODIUM ER 100 MG CAP PO SCH (21:29)
[2020-07-28] MEDS: levETIRAcetam 250 MG TAB PO SCH (21:29)
[2020-07-28] MEDS: INSULIN ASPART 100 UNITS/ML 3 ML PEN SC SCH (21:40)
[2020-07-28] MEDS: metroNIDAZOLE 500 MG/100 ML BAG IV SCH (21:41)
[2020-07-29] MEDS: INSULIN ASPART 100 UNITS/ML 3 ML PEN SC SCH ×5 (00:40→21:09)
[2020-07-29] MEDS: metroNIDAZOLE 500 MG/100 ML BAG IV SCH ×3 (05:19→21:33)
[2020-07-29] MEDS: LEVOTHYROXINE SODIUM 50 MCG TABLET PO SCH (05:59)
--- NOTE | 2020-07-29 06:25 | Electrocardiogram Report ---
Test Reason : Blood Pressure : / mmHG Vent. Rate : 077 BPM Atrial Rate : 077 BPM P-R Int : 138 ms QRS Dur : 086 ms QT Int : 416 ms P-R-T Axes : 021 -18 010 degrees QTc Int : 470 ms Poor data quality, interpretation may be adversely affected Normal sinus rhythm Nonspecific ST and T wave abnormality Abnormal ECG When compared with ECG of 30-NOV-2019 16:22, Nonspecific T wave abnormality, improved in Lateral leads Confirmed by Primo Pretty ([id number]) on 07/29/2020 6:25:38 AM Referred By: Confirmed By:Primo Pretty
[2020-07-29 06:29] LABS: Basophils # (auto) 0.02 K/uL (0-0.2); Basophils % (auto) 0.3 %; Eosinophils # (auto) 0.07 K/uL (0-0.5); Hematocrit (blood only) 32.3 % (37-47); Immature Granulocytes # (auto) 0.01 K/uL (0.00-0.02); Immature Granulocytes % (auto) 0.1 %; Lymphocytes # (auto) 1.93 K/uL (1.2-3.4); Lymphocytes % (auto) 28.8 %; Mean Corpuscular Hemoglobin 33.4 pg (25-34); Mean Corpuscular Hgb Conc 34.1 g/dL (32-36); Mean Corpuscular Volume 98.2 fL (80-100); Mean Platelet Volume 9.7 fL (7.4-10.4); Monocytes # (auto) 0.69 K/uL (0.11-0.59); Monocytes % (auto) 10.3 %; Neutrophils # (auto) 3.98 K/uL (1.4-6.5); Neutrophils % (auto) 59.5 %; Platelet Count 201 K/uL (130-400); RDW Coefficient of Variation 13.6 % (11.5-14.5); RDW Standard Deviation 49.1 fL (36.4-46.3); Red Blood Count 3.29 M/uL (4.2-5.4)
[2020-07-29] MEDS ORDERED: IOVERSOL 50ml IV ONE (06:51)
[2020-07-29 07:01] LABS: Albumin Level 3.1 gm/dl (3.4-5.0); BUN Creatinine Ratio 8.6 (10-20); Calcium 8.1 mg/dl (8.5-10.1); Creatinine Clr Calc Pharmacy 43.8 ml/min; Est GFR (Non-African American) 59.5; Potassium 3.7 mmol/L (3.5-5.1)
[2020-07-29 07:03] LABS: Bilirubin,Total 0.3 mg/dl (0.2-1); Globulin 3.2 gm/dl (2.5-4.0); Total Protein 6.4 gm/dl (6.4-8.2)
[2020-07-29] MEDS ORDERED: fentaNYL citrate 100 MCG/2 ML VIAL ONE (07:24)
[2020-07-29] MEDS ORDERED: ROCURONIUM BROMIDE 10 MG/ML 5 ML VIAL IV ONE (07:25)
[2020-07-29] MEDS ORDERED: LIDOCAINE HCL 2% 2 ML VIAL/AMP(20MG/ML) INFIL ONE (07:25)
[2020-07-29] MEDS ORDERED: PROPOFOL IV EMULSION 10 MG/ML 20 ML VIAL IV ONE (07:25)
[2020-07-29 07:32] LABS: Estimated Average Glucose 128 mg/dl; Hemoglobin A1C 6.1 % (4.5-5.6)
--- NOTE | 2020-07-29 07:33 | History & Physical Bridge Note ---
Date of Service July 29, 2020 History & Physical Bridge Note I have examined the patient, reviewed the History & Physical and in the interval since the performance of the History & Physical I have noted the following changes of clinical significance: no changes noted EUS/ERCP today
--- NOTE | 2020-07-29 07:36 | Hospitalist Progress Note ---
Date of Service July 29, 2020 Assessment & Plan (1) Choledocholithiasis: Patient is an 84 year old female with PMHx DM2, Dyslipidemia, Hypothyroidism, Seizure Disorder that presented initially with abdominal pain and found to have cholecystitis and choledocholithiasis. Patient was evaluated by GI and Gen Surg with plans to undergo ERCP with follow up cholecystectomy under the same anesthesia. Cholecystitis and Choledocholithiasis -CT Ab/Pelv showing cholelithiasis and choledocholithiasis with evidence of acute cholecystitis -S/P ERCP 07/29/20 with removal of 1 stone, removal of sludge, and placement of stent in common bile duct. -Repeat ERCP in 6 weeks for removal of stent. -S/P Lap Cholecystectomy 07/29/20 shortly after ERCP under the same anesthesia without complications. -Was started on empiric antibiotics Metronidazole 500mg q8h and Cefoxitin 1000mg q6h, will continue post surgery x1 day, will discuss with Gen Surg in AM if would prefer longer duration. -Pain control with Tylenol 650mg q4h and Toradol 10mg q6h PRN pain -Nausea control with Zofran 4mg q6h and Reglan 10mg q6h PRN Seizure Disorder -Continue home Phenytoin and Keppra Hypothyroidism -Continue home levothyroxine Hx CVA -Continue home ASA HLD -Holding home atorvastatin Dispo: Med/Surg w/ Telemetry FEN: Clear liquid diet DVT: SCD Code: DNR/DNI (2) Gallstone pancreatitis: (3) H/O: CVA (cerebrovascular accident): (4) Type 2 diabetes mellitus: (5) Dyslipidemia: (6) Hypothyroidism: (7) Seizure disorder: Admission and Anticipated Discharge Date Admission Date: July 28, 2020 Supervising Physician Co-Signing Physician Notes Resident Physician Supervision Note: I independently interviewed and examined the patient and verified the villarreal history and physical, reviewed labs and image studies, discussed the case with the resident Dr. Sweeney and agree with the findings and care plan. Subjective Initially had gone to evaluate patient this AM, though had already been taken to the OR for ERCP and lap rigoberto. Saw patient in room after return from OR. Patient noting that she was having significant nausea without vomiting. Stated that her pain at this time was well controlled. No chest pain, SOB. Review of Systems Constitutional: no fever and no chills Respiratory: no cough and no dyspnea Cardiovascular: no chest pain, no radiating jaw, neck or arm pain, no dyspnea and no dyspnea on exertion Gastrointestinal: + nausea; no abdominal pain and no vomiting Physical Exam Constitutional: well developed and well nourished; no acute distress Eyes: PERRL, conjunctivae normal, anicteric sclerae Respiratory: normal respiratory effort, lungs clear to auscultation Cardiovascular: Rate/Rhythm: regular rate and regular rhythm Heart Sounds: normal S1 and normal S2 Gastrointestinal (Abdomen): Inspection/Auscultation: abdomen normal to inspection, normal bowel sounds and + abdominal surgical incision (dressings for lap sites CDI ) Percussion/Palpation: abdomen soft; abdomen nontender, no guarding and abdomen not rigid Psychiatric: Orientation: alert and oriented x 3 Affect: + anxious affect (secondary to nausea/fear of vomiting ) Results & Data Results & Data ([facility]) Vital Signs (Past 12 Hours) Vital Signs Temp Pulse Pulse Resp BP BP Pulse Ox 07/29/20 03:53 37 C 68 18 129/64 94 07/29/20 00:10 87 07/28/20 23:23 37.1 C 83 16 133/71 92 07/28/20 20:00 36.8 C 81 18 117/73 93 Resident Activity Tracking Resident Involvement: Resident Care Provided Care Provided: Adult Hospital Medicine (1) Hypothyroidism Hypothyroidism type: acquired Qualified Code(s): E03.9 - Hypothyroidism, unspecified
[2020-07-29] MEDS ORDERED: ATROPINE SULFATE 0.1 MG/ML 10ML SYR IV PRN (07:54)
[2020-07-29] MEDS ORDERED: ePHEDrine sulfate 50 MG/ML AMP IV PRN (07:54)
[2020-07-29] MEDS ORDERED: ONDANSETRON INJ 2 MG/ML 2 ML VIAL IV PRN (07:54)
[2020-07-29] MEDS ORDERED: fentaNYL citrate 100 MCG/2 ML VIAL IV PRN (07:54)
--- NOTE | 2020-07-29 07:55 | Anesthesiology Consultation ---
Date of Service July 29, 2020 Assessment & Plan ASA ASA3 Proposed Anesthesia Anesthesia Type: General Risk / Benefits Reviewed With: PT / POA / Parent / Guardian, Accepts Plan and Informed Consent Obtained History Surgery Operation Date: 07/29/20 07:30 Proposed Procedures p Endoscopic Retrograde Cholangiopancreatogram - Danielle Rodas MD s Laparoscopic Cholecystectomy - Roslyn Pond MD Height/Weight Height: 4 ft 10 in Weight: 82.5 kg Allergies Allergy/AdvReac Type Severity Reaction Status Date / Time allopurinol [From Zyloprim] Allergy Unknown Unknown Verified 07/28/20 14:32 lorazepam Allergy Unknown Unknown Verified 07/28/20 14:32 nortriptyline Allergy Unknown Unknown Verified 07/28/20 14:32 Opioids - Morphine Analogues Allergy Unknown Unknown Verified 07/28/20 14:32 peanut Allergy Unknown SNEEZE, Verified 07/28/20 14:32 COUGH Penicillins Allergy Unknown Unknown Verified 07/28/20 14:32 Sulfa (Sulfonamide Allergy Unknown Unknown Verified 07/28/20 14:32 Antibiotics) levofloxacin [From Levaquin] AdvReac Intermediate Possible Verified 07/28/20 14:32 seizure risedronate sodium AdvReac Intermediate Intolerence Verified 07/28/20 14:32 [From Actonel] Medications Home Medications Medication Instructions Recorded Confirmed Last Taken levothyroxine 50 mcg PO QAM 11/30/19 07/28/20 07/27/20 naproxen 375 mg PO BID PRN 11/30/19 07/28/20 Unknown atorvastatin 20 mg tablet 20 mg PO QAM #90 tab 12/17/19 07/28/20 07/27/20 metformin 500 mg tablet 500 mg PO BID #180 tab 01/31/20 07/28/20 07/27/20 Dilantin Infatabs 50 mg chewable 50 mg PO QAM #30 tab NS 04/05/20 07/28/20 07/27/20 tablet levetiracetam 750 mg tablet 750 mg PO BID #180 tab 04/25/20 07/28/20 07/27/20 Dilantin Extended 100 mg capsule 100 mg PO .COMPLEX #270 cap NS 06/16/2007/1107/27/20 aspirin 81 mg chewable tablet 81 mg PO QAM 07/04/20 07/28/20 07/27/20 Active Medications Generic Name Dose Route Start Last Admin Trade Name Paloma PRN Reason Stop Dose Admin Sodium Chloride 1,000 mls @ 100 mls/hr 07/28/20 19:31 07/29/20 06:03 Nss 1000ml IV 08/27/20 19:30 0 mls/hr .Q10H [facility]ES Infusion Cefoxitin Sodium 1,000 mg/ 60 mls @ 100 mls/hr 07/28/20 22:00 07/29/20 05:58 Dextrose IV 07/30/20 21:59 Infused Q6H [facility] Infusion Protocol Metronidazole 500 mg in 100 mls @ 100 mls/hr 07/28/20 21:00 07/29/20 05:25 Flagyl IV 07/30/20 20:59 0 mls/hr Q8H [facility] Infusion Protocol Insulin Aspart 0 units 07/28/20 21:00 07/29/20 06:22 Insulin Aspart 100 Units/Ml 3 Ml Pen SC 08/27/20 20:59 Not Given Q6 [facility]ES Levetiracetam 750 mg 07/28/20 21:00 07/28/20 21:29 Levetiracetam 250 Mg Tab PO 08/27/20 20:59 750 mg BID ARIES Administration Levothyroxine Sodium 50 mcg 07/29/20 06:30 07/29/20 05:59 Levothyroxine Sodium 50 Mcg Tablet PO 08/28/20 06:29 Not Given DAILYBB ARIES Phenytoin Sodium 200 mg 07/28/20 21:00 07/28/20 21:29 Phenytoin Sodium Er 100 Mg Cap PO 08/27/20 20:59 200 mg QPM ARIES Administration NPO Date Last Intake of Fluids: 07/28/20 Time Last Intake of Fluids: 23:00 Date Last Intake of Solids: 07/27/20 Time Last Intake of Solids: 00:00 Past Medical History Medical History Acid reflux Dyslipidemia Hiatal hernia History of shingles (~2019) History of stroke 20 YRS AGO, MEMORY PROBLEM AFTER AND TROUBLE SPELLING Hypothyroidism Osteoarthritis Osteoporosis Seizure disorder Type 2 diabetes mellitus Exercise / Class Metabolic Activity II 4-5 Yardwork/Stairs/Walk up hill Past Family History Family History Father Hypertension Mother Diabetes Myocardial infarction Brother Lung disease Diabetes Brother Diabetes Brother Diabetes Brother Diabetes Brother Diabetes Past Surgical History Surgical History H/O: hysterectomy History of ankle surgery L X2 History of appendectomy History of colonoscopy History of surgery on left wrist Past Anesthesia History No Hx of Anesthesia Complications and No Family Hx of Anesthesia Complications History of PONV No Hx of PONV and No Hx of Motion Sickness Social History Smoking Status: Never smoker Do You Dip or Chew Tobacco: No Hx Alcohol Use: No Hx Substance Use: No substance use type: does not use Review of Systems denies fever/cough/ colds/ chest pain/ SOB/ CHARLIE denies CHARLIE Physical Exam Vital Signs Last Vital Signs Temp 37 C 07/29/20 03:53 Pulse 68 07/29/20 03:53 Resp 18 07/29/20 03:53 BP 129/64 07/29/20 03:53 Pulse Ox 94 07/29/20 03:53 ENMT Mouth: no TMJ abnormality and no dentition abnormality Thyromental Distance: > or= 3.5 Finger Breadths Mallampati Class: II Neck neck extension not limited Respiratory normal respiratory effort; no respiratory distress Auscultation: lungs clear to auscultation bilaterally Cardiovascular Rate/Rhythm: regular rate and regular rhythm Neurologic moves all extremities Psychiatric Orientation: alert and oriented x 3 Testing Laboratory Results 07/29/20 05:45 07/29/20 05:45 PT 10.9 Seconds (9.0-12.0) 07/28/20 13:05 INR 1.0 (0.9-1.1) 07/28/20 13:05 APTT 23.4 Seconds (21.0-31.0) 07/28/20 13:05 Hemoglobin A1c 6.1 % (4.5-5.6) H 07/29/20 05:45 Urine Color Yellow 07/28/20 14:32 Urine Appearance Clear (Clear) 07/28/20 14:32 Urine pH 7.5 (4.5-7.5) 07/28/20 14:32 Ur Specific [place] 1.011 (1.000-1.030) 07/28/20 14:32 Urine Protein Negative (Negative) 07/28/20 14:32 Urine Glucose (UA) Negative (Negative) 07/28/20 14:32 Urine Ketones Negative (Negative) 07/28/20 14:32 Urine Nitrite Negative (Negative) 07/28/20 14:32 Ur Leukocyte Esterase Negative (Negative) 07/28/20 14:32 07/29/20 07/29/20 07/28/20 06:06 00:15 20:43 POC Glucose 111 H 129 H 115 H
--- NOTE | 2020-07-29 08:54 | Operative Report ---
Post Operative Report Pre & Post Diagnosis Operation Date: 07/29/20 07:30 Pre-Op Diagnosis: Choledocholithiasis Post-Op Diagnosis: Choledocholithiasis I identified the patient and participated in the time-out.: Yes Procedure Operation Date: 07/29/20 07:30 Actual Procedures p Endoscopic Retrograde Cholangiopancreatogram(Not Applicable) - Danielle stephenson MD s Laparoscopic Cholecystectomy(Not Applicable) - Roslyn Pond MD Surgeon Danielle Rodas MD Lab Assistant None Estimated Blood Loss 0 Findings See Below (CBD stone and sludge removed, CBD stent placed) Specimens None Description of Procedure ERCP I attest to the content of the Intraoperative Record and any orders documented therein. Any exceptions are noted below.
[2020-07-29] MEDS ORDERED: BUPIVACAINE 0.5 % 5 MG/1 ML MPF 30ML VIAL ONE (09:01)
--- NOTE | 2020-07-29 09:02 | GI REPORT ---
Patient Name: Agata Swift Procedure Date: 07/29/2020 7:56 AM Date of : 1935 Admit Type: Inpatient Age: 84 Gender: Female Attending MD: Danielle Rodas MD Procedure: Upper GI endoscopy Providers: Danielle Rodas MD Referring MD: Jonathan Pickens Md, Roslyn Pond Indications: Epigastric abdominal pain Medicines: General Anesthesia Complications: No immediate complications. Estimated Blood Loss: Estimated blood loss: none. Procedure: Pre-Anesthesia Assessment: - Prior to the procedure, a History and Physical was performed, and patient medications, allergies and sensitivities were reviewed. The patient's tolerance of previous anesthesia was reviewed. - The risks and benefits of the procedure and the sedation options and risks were discussed with the patient. All questions were answered and informed consent was obtained. - Patient identification and proposed procedure were verified prior to the procedure by the physician and the nurse. The procedure was verified in the procedure room. - Pre-procedure physical examination revealed no contraindications to sedation. After obtaining informed consent, the endoscope was passed under direct vision. Throughout the procedure, the patient's blood pressure, pulse, and oxygen saturations were monitored continuously. The Endoscope was introduced through the mouth, and advanced to the second part of duodenum. The upper GI endoscopy was accomplished without difficulty. The patient tolerated the procedure well. Findings: The examined esophagus was normal. A single small erosion with no bleeding and no stigmata of recent bleeding was found in the gastric antrum. The duodenal bulb and second portion of the duodenum were normal. Impression: - Normal esophagus. - Erosive gastropathy with no bleeding and no stigmata of recent bleeding. - Normal duodenal bulb and second portion of the duodenum. - No specimens collected. Recommendation: - No ibuprofen, naproxen, or other non-steroidal anti-inflammatory drugs. - Perform an upper endoscopic ultrasound (UEUS) today. Danielle Rodas MD 07/29/2020 9:01:59 AM This report has been signed electronically. Note Initiated On: 07/29/2020 7:56 AM Number of Addenda: 0 I attest to the content of the Intraoperative Record and orders documented therein, exceptions below {[id number]}
--- NOTE | 2020-07-29 09:08 | GI REPORT ---
Patient Name: Agata Swift Procedure Date: 07/29/2020 7:58 AM Date of : 1935 Admit Type: Inpatient Age: 84 Gender: Female Attending MD: Danielle Rodas MD Procedure: Upper EUS Providers: Danielle Rodas MD Referring MD: Jonathan Pickens Md, Roslyn Pond Indications: Abnormal abdominal/pelvic CT scan, Suspected choledocholithiasis Medicines: General Anesthesia Complications: No immediate complications. Estimated Blood Loss: Estimated blood loss: none. Procedure: Pre-Anesthesia Assessment: - Prior to the procedure, a History and Physical was performed, and patient medications, allergies and sensitivities were reviewed. The patient's tolerance of previous anesthesia was reviewed. - The risks and benefits of the procedure and the sedation options and risks were discussed with the patient. All questions were answered and informed consent was obtained. - Patient identification and proposed procedure were verified prior to the procedure by the physician and the nurse. The procedure was verified in the procedure room. - Pre-procedure physical examination revealed no contraindications to sedation. After obtaining informed consent, the endoscope was passed under direct vision. Throughout the procedure, the patient's blood pressure, pulse, and oxygen saturations were monitored continuously. The scope was introduced through the mouth, and advanced to the second part of duodenum. The upper EUS was accomplished without difficulty. The patient tolerated the procedure well. Findings: ENDOSONOGRAPHIC FINDING: : There was no sign of significant endosonographic abnormality in the ampulla. One stone and moderate amount of sludge was visualized endosonographically in the common bile duct. It was hyperechoic and characterized by shadowing. The common bile duct diameter measured 6 mm. Many stones were visualized endosonographically in the gallbladder. They were hyperechoic and characterized by shadowing. There was no sign of significant endosonographic abnormality in the visualized portion of the liver. There was no sign of significant endosonographic abnormality in the entire pancreas. The pancreatic duct measured up to 2 mm in diameter. Pancreas divisum was suspected. There was no sign of significant endosonographic abnormality in the visualized portion of the left adrenal gland. There was no sign of significant endosonographic abnormality involving the celiac trunk. Impression: - There was no sign of significant pathology in the ampulla. - One stone and sludge was visualized endosonographically in the common bile duct. - Many stones were visualized endosonographically in the gallbladder. - There was no evidence of significant pathology in the visualized portion of the liver. - There was no sign of significant pathology in the entire pancreas. - Endosonographic images of the left adrenal gland were unremarkable. - The celiac trunk was endosonographically normal. Recommendation: - Perform an ERCP today. Danielle Rodas MD 07/29/2020 9:08:13 AM This report has been signed electronically. Note Initiated On: 07/29/2020 7:58 AM Number of Addenda: 0 I attest to the content of the Intraoperative Record and orders documented therein, exceptions below {[id number]}
--- NOTE | 2020-07-29 09:15 | GI REPORT ---
Patient Name: Agata Swift Procedure Date: 07/29/2020 7:57 AM Date of : 1935 Admit Type: Inpatient Age: 84 Gender: Female Attending MD: Danielle Rodas MD Procedure: ERCP Providers: Danielle Rodas MD Referring MD: Jonathan Pickens Md, Roslyn Pond Indications: For therapy of bile duct stone(s) Medicines: General Anesthesia Complications: No immediate complications. Estimated Blood Loss: Estimated blood loss: none. Procedure: Pre-Anesthesia Assessment: - Prior to the procedure, a History and Physical was performed, and patient medications, allergies and sensitivities were reviewed. The patient's tolerance of previous anesthesia was reviewed. - The risks and benefits of the procedure and the sedation options and risks were discussed with the patient. All questions were answered and informed consent was obtained. - Patient identification and proposed procedure were verified prior to the procedure by the physician and the nurse. The procedure was verified in the procedure room. - Pre-procedure physical examination revealed no contraindications to sedation. After obtaining informed consent, the scope was passed under direct vision. Throughout the procedure, the patient's blood pressure, pulse, and oxygen saturations were monitored continuously. The Scope was introduced through the mouth, and advanced to the duodenum and used to inject contrast into the bile duct. The ERCP was accomplished without difficulty. The patient tolerated the procedure well. Findings: The associate account director film was normal. The esophagus was successfully intubated under direct vision. The scope was advanced to a normal major papilla in the descending duodenum without detailed examination of the pharynx, larynx and associated structures, and upper GI tract. The upper GI tract was grossly normal. A 0.035 inch straight standard wire was passed into the biliary tree. The Fusion OMNI sphincterotome was passed over the guidewire and the bile duct was then deeply cannulated. Contrast was injected. I personally interpreted the bile duct images. Ductal flow of contrast was adequate. Image quality was adequate. Contrast extended to the main bile duct. Opacification of the entire biliary tree was successful. The maximum diameter of the ducts was 9 mm. Biliary sphincterotomy was made with a monofilament traction (standard) sphincterotome using ERBE electrocautery. There was no post-sphincterotomy bleeding. The biliary tree was swept with a 12 mm balloon starting at the bifurcation. Sludge was swept from the duct. One stone was removed. No stones remained. One 10 Fr by 8 cm plastic biliary stent with a single external flap and a single internal flap was placed into the common bile duct due to excessive sludge. Bile flowed through the stent. The stent was in good position. PD was not cannulated. Impression: - Choledocholithiasis was found. Complete removal was accomplished by biliary sphincterotomy and balloon extraction. - One plastic biliary stent was placed into the common bile duct. Recommendation: - [facility] patient to [facility] care. - Repeat ERCP in 6 weeks to remove stent. Danielle Rodas MD 07/29/2020 9:14:48 AM This report has been signed electronically. Note Initiated On: 07/29/2020 7:57 AM Number of Addenda: 0 I attest to the content of the Intraoperative Record and orders documented therein, exceptions below {[id number]}
--- NOTE | 2020-07-29 09:17 | Fluoroscopy Report ---
INTRAOPERATIVE RADIOGRAPHS CLINICAL HISTORY: ERCP. Fluoroscopy time: 53 seconds. FINDINGS: 8 spot fluoroscopic views of the right upper quadrant are correlated with abdominal CT date d 07/28/2020. The initial image shows the endoscope projecting over the stomach with cannulation of t he common bile duct. The common bile duct is dilated, and a filling defect near the ampulla likely re presents choledocholithiasis. Contrast opacification of the gallbladder shows bladder distention with intraluminal gallstones. A balloon sweep of the common duct is performed. The final image shows a co mmon bile duct stent in place. There is no significant intrahepatic biliary ductal dilatation. IMPRESSION: Intraoperative ERCP images as above with placement of a common bile duct stent. Electronically signed by: Connor Wright M.D. 07/29/2020 9:16 AM
[2020-07-29] MEDS ORDERED: NEOSTIGMINE METHYLSULFATE 5 MG/5 ML SYR ONE (09:34)
[2020-07-29] MEDS ORDERED: DEXAMETHASONE SOD INJ 4 MG/ML VIAL ONE (09:34)
[2020-07-29] MEDS ORDERED: ONDANSETRON INJ 2 MG/ML 2 ML VIAL ONE ×2 (09:34)
[2020-07-29] MEDS ORDERED: GLYCOPYRROLATE 0.2 MG/ML VIAL ONE (09:34)
[2020-07-29] MEDS ORDERED: ePHEDrine sulfate 50 MG/ML SYR ONE (09:49)
--- NOTE | 2020-07-29 10:08 | Operative Report ---
Post Operative Report Pre & Post Diagnosis Operation Date: 07/29/20 07:30 Pre-Op Diagnosis: Choledocholithiasis and gallstone pancreatitis Post-Op Diagnosis: Choledocholithiasis and gallstone pancreatitis I identified the patient and participated in the time-out.: Yes Procedure Operation Date: 07/29/20 07:30 Actual Procedures p Endoscopic Retrograde Cholangiopancreatogram(Not Applicable) - MD rich Oneil Laparoscopic Cholecystectomy(Not Applicable) - Roslyn Pond MD Surgeon Roslyn Pond MD Grain Drier None Estimated Blood Loss 5 Findings See Below (bilious ascites present, edematous gallbladder c/w acute cholecystitis) Specimens gallbladder Description of Procedure The patient was on cefoxitin preoperatively. After the induction of general endotracheal anesthesia, she underwent an ERCP with Dr. Nallely Marte. At the conclusion of the ERCP, she was repositioned onto her back with her arms out. Her abdomen was sterilely prepped and draped. She was placed into Trendelenburg. Given a prior lower midline incision, a decision was made to enter the abdomen in the right upper quadrant. The medial port site was grasped with towel clamps and retracted superiorly. A small incision was made. A Veress needle was placed into the peritoneal cavity. This was tested with the saline drop test. Initial pressure was 1 mmHg and this was taken to 15 mmHg. A 5 mm trocar was placed under with the camera through the port. The abdomen was inspected. There was a small umbilical hernia. There were minimal adhesions to the lower midline incision. A supraumbilical 5 mm trocar was placed away from the hernia site. The camera was switched to this position. A 11 mm port was placed in the epigastrium and another 5 mm on the right side of the abdomen. There was evidence of bilious ascites. There were adhesions to the gallbladder which were bluntly taken down. The gallbladder was quite edematous. When g rasped this was very friable and there was some spillage of bile. There was no spillage of stones. The gallbladder was retracted over the edge of the liver. The cystic duct and cystic artery were identified in the triangle of Priscilla. Critical views were seen anteriorly and posteriorly. The cystic artery was taken in a single branch with 2 clips on the remaining side and a single clip on the gallbladder side. This was divided. The cystic duct was taken in a similar fashion. The gallbladder was then dissected off the liver bed. It was placed in Endobag and removed through the epigastric incision. The abdomen was irrigated and suctioned until the effluent was clear. The trochars were removed. 30 cc of 0.5% marcaine had been used as local anesthesia throughout the procedure. There had been no evidence of bleeding during the procedure. The fascia of the epigastric site was closed with 0 Vicryl stitches placed anteriorly. The skin of all 4 incisions was closed with running subcuticular 4- 0 Vicryl sutures. Steri-Strips and sterile dressings were applied. She was awakened and taken to recovery in stable condition. I attest to the content of the Intraoperative Record and any orders documented therein. Any exceptions are noted below.
[2020-07-29] MEDS: PROMETHAZINE HCL 6.25 MG in SODIUM CHLORIDE 0.9% 50 ML IV ONE ×2 (10:48→14:23)
--- NOTE | 2020-07-29 12:39 | Anesthesiology Progress Note ---
Date of Service July 29, 2020 Anesthesia Post Procedure Vital Signs Vital Signs: Temp Pulse Pulse Pulse Pulse Resp BP 07/29/20 12:00 36.5 C 72 18 07/29/20 11:24 36.4 C L 80 07/29/20 11:00 36.4 C L 59 L 17 07/29/20 10:50 62 17 07/29/20 10:40 63 18 07/29/20 10:30 70 16 07/29/20 10:20 66 14 07/29/20 10:12 36.5 C 78 22 07/29/20 03:53 37 C 68 18 07/29/20 00:10 87 07/28/20 23:23 37.1 C 83 16 07/28/20 20:00 36.8 C 81 18 07/28/20 19:36 95 H 07/28/20 18:30 36.6 C 16 07/28/20 18:00 76 18 124/54 L 07/28/20 17:30 88 24 133/52 L 07/28/20 17:00 78 20 136/61 07/28/20 16:01 84 20 125/68 07/28/20 15:30 79 19 127/60 07/28/20 15:00 79 20 125/59 L 07/28/20 14:00 73 18 133/80 07/28/20 13:30 75 20 138/72 07/28/20 13:04 BP BP Pulse Ox 07/29/20 12:00 161/77 H 98 07/29/20 11:24 159/80 H 99 07/29/20 11:00 152/68 H 98 07/29/20 10:50 137/94 97 07/29/20 10:40 139/64 97 07/29/20 10:30 142/60 H 100 07/29/20 10:20 155/66 H 100 07/29/20 10:12 140/57 L 100 07/29/20 03:53 129/64 94 07/29/20 00:10 07/28/20 23:23 133/71 92 07/28/20 20:00 117/73 93 18 19:36 18 18:30 126/74 89 L 07/28/20 18:00 96 07/28/20 17:30 88 L 07/28/20 17:00 92 07/28/20 16:01 95 07/28/20 15:30 93 07/28/20 15:00 91 07/28/20 14:00 92 07/28/20 13:30 94 07/28/20 13:04 92 Pain Intensity Abdomen: Pain Intensity: 3 Transfer of Care Handoff Completed per policy Notes Mental Status: alert / awake / arousable and participated in evaluation Patient Amnestic to Procedure: Yes Nausea / Vomiting: adequately controlled Pain: adequately controlled Airway Patency, RR, SpO2: stable & adequate BP & HR: stable & adequate Hydration State: stable & adequate Anesthetic Complications: no major complications apparent and Pt Satisfied with anesthetic care
[2020-07-29] MEDS ORDERED: CALCIUM CARBONATE 500 MG CHEWABLE TAB PO PRN (12:58)
[2020-07-29] MEDS: ASPIRIN 81 MG ECTAB PO SCH (13:24)
[2020-07-29] MEDS: PHENYTOIN 50 MG CHEW PO SCH (13:24)
[2020-07-29] MEDS: PHENYTOIN SODIUM ER 100 MG CAP PO SCH ×2 (13:24→21:34)
[2020-07-29] MEDS: levETIRAcetam 250 MG TAB PO SCH ×2 (13:24→21:33)
[2020-07-29] MEDS ORDERED: ondansetron HCL 6 MG in DEXTROSE 5% 50 ML IV ONE (13:30)
[2020-07-29] MEDS: ACETAMINOPHEN 325 MG TAB PO PRN (13:58)
--- NOTE | 2020-07-29 14:03 | Pharmacy Report ---
Pharmacy Glycemic Short Note 2 - Date of Service July 29, 2020 - Glycemic Short BSG Results (Last 24 hours): 07/28/20 07/29/20 07/29/20 20:43 00:15 05:45 Glucose 107 H POC Glucose 115 H 129 H 07/29/20 07/29/20 07/29/20 06:06 10:16 11:26 Glucose POC Glucose 111 H 129 H 119 H OUTPATIENT ANTIDIABETIC REGIMEN: * metformin 500 bid ASSESSMENT: * 84 year old female admitted with GI issues, had cholycystectomy today. Type 2 diabetic managed only on metformin at home. A1c 6.1% on admission * Steroids pulled in OR this morning, anticipate steroid induced hyperglycemia therefore will tighten CF/CR with next check * Plan to add small dose of Lantus this evening if BSGs trending upward PLAN FOR INPATIENT GLYCEMIC CONTROL: * Hold outpatient oral diabetes medications * Basal insulin * Lantus 0-8 units HS (if BSGs >200) * Bolus insulin * NovoLog per scale ACHS or Q6hrs while NPO * Goal Range: Low 120 mg/dL - High 150 mg/dL * Correction Factor: 30 mg/dL/unit * Nutritional / Prandial insulin per carb ratio of 1 unit per 10 grams CHO consumed PLAN FOR DISCHARGE: * tbd
[2020-07-29] MEDS: SODIUM CHLORIDE 0.9% 1000ML 1,000 ML IV SCH (14:15)
[2020-07-29] MEDS ORDERED: Nursing to Pharmacy Communication SCH (15:30)
[2020-07-29] MEDS: METOCLOPRAMIDE HCL INJ 5 MG/ML 2 ML VIAL IV PRN (15:51)
[2020-07-29] MEDS ORDERED: LANTUS PER UNIT CHARGE SQ SCH (21:00)
[2020-07-30] MEDS: SODIUM CHLORIDE 0.9% 1000ML 1,000 ML IV SCH ×2 (00:05→11:32)
[2020-07-30] MEDS: KETOROLAC TROMETHAMINE 15 MG/ML VIAL IV PRN ×2 (00:09→07:45)
[2020-07-30] MEDS: metroNIDAZOLE 500 MG/100 ML BAG IV SCH (05:16)
[2020-07-30] MEDS: LEVOTHYROXINE SODIUM 50 MCG TABLET PO SCH (05:19)
[2020-07-30] MEDS: ONDANSETRON INJ 2 MG/ML 2 ML VIAL IV PRN ×2 (05:43→13:36)
--- NOTE | 2020-07-30 07:28 | Hospitalist Progress Note ---
Date of Service July 30, 2020 Assessment & Plan (1) Choledocholithiasis: Patient is an 84 year old female with PMHx DM2, Dyslipidemia, Hypothyroidism, Seizure Disorder that presented initially with abdominal pain and found to have cholecystitis and choledocholithiasis. Patient was evaluated by GI and Gen Surg with plans to undergo ERCP with follow up cholecystectomy under the same anesthesia. Cholecystitis and Choledocholithiasis -CT Ab/Pelv showing cholelithiasis and choledocholithiasis with evidence of acute cholecystitis -S/P ERCP 07/29/20 with removal of 1 stone, removal of sludge, and placement of stent in common bile duct. -Repeat ERCP in 6 weeks for removal of stent. -S/P Lap Cholecystectomy 07/29/20 shortly after ERCP under the same anesthesia without complications. -Was started on empiric antibiotics Metronidazole 500mg q8h and Cefoxitin 1000mg q6h -- DC today -Pain uncontrolled this am - Added percocet. Continue Tylenol 650mg q4h and Toradol 10mg q6h PRN pain and Percocet 5-10/325mg for severe pain. -Nausea control with Zofran 4mg q6h and Reglan 10mg q6h PRN -Simethicone 80mg q6h PRN for bloating -From surgical standpoint once pain control improved patient may be dc'd -F/U in office in 2 weeks -Remove gauze dressings 24 hours after surgery, OK to shower -Low fat foods for 4-6 weeks. -Anticipate d/c home in am with better pain control Seizure Disorder -Continue home Phenytoin and Keppra Hypothyroidism -Continue home levothyroxine Hx CVA -Continue home ASA HLD -Holding home atorvastatin Dispo: Med/Surg w/ Telemetry FEN: Regular diet DVT: SCD Code: DNR/DNI (2) Gallstone pancreatitis: (3) H/O: CVA (cerebrovascular accident): (4) Type 2 diabetes mellitus: (5) Dyslipidemia: (6) Hypothyroidism: (7) Seizure disorder: Admission and Anticipated Discharge Date Admission Date: July 28, 2020 Supervising Physician Co-Signing Physician Notes Resident Physician Supervision Note: I independently interviewed and examined the patient and verified the villarreal history and physical, reviewed labs and image studies, discussed the case with the resident Dr. Sweeney and agree with the findings and care plan. Subjective Patient evaluated at the bedside this AM. Still noting some abdominal bloating and discomfort. Stated that nausea had improved, though was still present occasionally, requesting some crackers to help "settle my stomach." Otherwise denies any chest pain, pressure, SOB, dizziness, dysuria, fever, chills. Review of Systems Constitutional: no fever and no chills Respiratory: no cough and no dyspnea Cardiovascular: no chest pain, no radiating jaw, neck or arm pain, no dyspnea and no dyspnea on exertion Gastrointestinal: + abdominal pain (RUQ near sugical incision ) and + nausea; no vomiting Genitourinary: no dysuria Physical Exam Constitutional: well developed and well nourished; no acute distress Eyes: PERRL, conjunctivae normal, anicteric sclerae Respiratory: normal respiratory effort, lungs clear to auscultation Cardiovascular: Rate/Rhythm: regular rate and regular rhythm Heart Sounds: normal S1 and normal S2 Gastrointestinal (Abdomen): Inspection/Auscultation: abdomen normal to inspection, normal bowel sounds and + abdominal surgical incision (dressings for lap sites CDI ) Percussion/Palpation: + abdomen tender (mild ttp in RUQ near incision ) and abdomen soft; no guarding and abdomen not rigid Psychiatric: Orientation: alert and oriented x 3 Affect: + anxious affect (secondary to nausea/fear of vomiting ) Results & Data Results & Data ([facility]) Vital Signs (Past 12 Hours) Vital Signs Temp Pulse Pulse Resp BP Pulse Ox 07/30/20 05:22 37.3 C 87 18 114/71 91 07/30/20 01:18 84 07/30/20 01:11 36.8 C 89 18 111/57 L 90 Resident Activity Tracking Resident Involvement: Resident Care Provided Care Provided: Adult Hospital Medicine (1) Hypothyroidism Hypothyroidism type: acquired Qualified Code(s): E03.9 - Hypothyroidism, unspecified
[2020-07-30] MEDS: PHENYTOIN 50 MG CHEW PO SCH (07:42)
[2020-07-30] MEDS: ASPIRIN 81 MG ECTAB PO SCH (07:42)
[2020-07-30] MEDS: PHENYTOIN SODIUM ER 100 MG CAP PO SCH ×2 (07:43→21:42)
[2020-07-30] MEDS: levETIRAcetam 250 MG TAB PO SCH ×2 (07:43→21:42)
[2020-07-30 07:44] LABS: Basophils # (auto) 0.01 K/uL (0-0.2); Basophils % (auto) 0.1 %; Eosinophils # (auto) 0.09 K/uL (0-0.5); Eosinophils % (auto) 1.3 %; Hematocrit (blood only) 32.9 % (37-47); Hemoglobin 10.7 g/dL (12.0-16.0); Immature Granulocytes # (auto) 0.02 K/uL (0.00-0.02); Immature Granulocytes % (auto) 0.3 %; Lymphocytes # (auto) 1.47 K/uL (1.2-3.4); Lymphocytes % (auto) 21.6 %; Mean Corpuscular Hemoglobin 32.5 pg (25-34); Mean Corpuscular Hgb Conc 32.5 g/dL (32-36); Mean Platelet Volume 9.9 fL (7.4-10.4); Monocytes # (auto) 0.76 K/uL (0.11-0.59); Monocytes % (auto) 11.1 %; Neutrophils # (auto) 4.47 K/uL (1.4-6.5); Neutrophils % (auto) 65.6 %; Platelet Count 188 K/uL (130-400); RDW Coefficient of Variation 13.6 % (11.5-14.5); RDW Standard Deviation 49.8 fL (36.4-46.3); Red Blood Count 3.29 M/uL (4.2-5.4); White Blood Count 6.82 K/uL (4.8-10.8)
[2020-07-30] MEDS: INSULIN ASPART 100 UNITS/ML 3 ML PEN SC SCH ×2 (08:42→12:30)
[2020-07-30 08:53] LABS: BUN Creatinine Ratio 8.5 (10-20); Calcium 7.6 mg/dl (8.5-10.1); Creatinine Clr Calc Pharmacy 56.8 ml/min; Est GFR (African American) 91.9; Est GFR (Non-African American) 79.3; Potassium 3.6 mmol/L (3.5-5.1)
[2020-07-30] MEDS ORDERED: SIMETHICONE 80 MG CHEW PO PRN (08:54)
[2020-07-30] MEDS: METOCLOPRAMIDE HCL INJ 5 MG/ML 2 ML VIAL IV PRN (10:03)
[2020-07-30] MEDS: ACETAMINOPHEN 325 MG TAB PO PRN (10:03)
[2020-07-30] MEDS ORDERED: oxyCODONE/ACETAMINOPHEN 5mg/325mg TAB PO PRN (10:21)
--- NOTE | 2020-07-30 10:27 | Surgery Progress Note ---
Date of Service July 30, 2020 Assessment & Plan (1) Gallstone pancreatitis: 84 yr old woman with gallstone pancreatitis and CT scan showing a stone in the common bile duct at level of pancreas. Now s/p ercp/ stone removal/ lap cholecystectomy yesterday morning. Postop course is going well but needs better pain management. States she has tolerated percocet in the past - will try this for pain control. Advance diet as tolerated. Once pain under control, ok to discharge from surgical standpoint - f/u in office ([phone]) in 2 weeks, ok to remove gauze dressings 24 hours after surgery, ok to shower and get steristrips wet, diet: low fat foods for 4-6 weeks. Thank you. (2) Type 2 diabetes mellitus: (3) Seizure disorder: Admission and Anticipated Discharge Date Admission Date: July 28, 2020 Subjective POD#1 lap rigoberto/ ercp with stone removal. Sitting in chair. Pain in areas of incision and right upper quadrant. tolerated clears. Has tolerated percocet in past she says - tylenol alone is written for pain and is not strong enough. Review of Systems Review of Systems: All systems reviewed & are unremarkable except as noted in HPI & below Physical Exam Constitutional: WD/WN, vitals as above Eyes: PERRL, conjunctivae normal, anicteric sclerae Respiratory: normal respiratory effort, lungs clear to auscultation Cardiovascular: RRR, no murmur, no edema Gastrointestinal (Abdomen): Inspection/Auscultation: abdomen normal to inspection, normal bowel sounds, + visible herniation (small reducible umbilical hernia), + abdominal surgical scar (lower midline) and + abdominal surgical incision (dressings dry) Percussion/Palpation: + abdomen tender (mild, at incisions) and abdomen soft; no hepatosplenomegaly Musculoskeletal: Head/Neck/Chest: normocephalic and head atraumatic Extremities: extremities normal to inspection Neurologic: awake; no focal motor deficits Psychiatric: A+Ox3, euthymic affect Results & Data ([facility]) Vital Signs (Past 12 Hours) Vital Signs Temp Pulse Pulse Resp BP BP Pulse Ox 07/30/20 07:34 37.2 C 86 18 128/72 90 07/30/20 05:22 37.3 C 87 18 114/71 91 07/30/20 01:18 84 07/30/20 01:11 36.8 C 89 18 111/57 L 90 Laboratory Results Abnormal lab results 07/29/20 07/29/20 07/29/20 Range/Units 10:16 11:26 16:54 RBC (4.2-5.4) M/uL Hgb (12.0-16.0) g/dL Hct (37-47) % RDW Std Deviation (36.4-46.3) fL [place] # (Auto) (0.11-0.59) K/uL Chloride (98-107) mmol/L BUN (7-18) mg/dl BUN/Creatinine Ratio (10-20) Glucose (70-99) mg/dl POC Glucose 129 H 119 H 130 H (70-99) mg/dl Calcium (8.5-10.1) mg/dl 07/29/20 07/30/20 07/30/20 Range/Units 20:00 06:45 06:45 RBC 3.29 L (4.2-5.4) M/uL Hgb 10.7 L (12.0-16.0) g/dL Hct 32.9 L (37-47) % RDW Std Deviation 49.8 H (36.4-46.3) fL [place] # (Auto) 0.76 H (0.11-0.59) K/uL Chloride 108 H (98-107) mmol/L BUN 6 L (7-18) mg/dl BUN/Creatinine Ratio 8.5 L (10-20) Glucose 113 H (70-99) mg/dl POC Glucose 146 H (70-99) mg/dl Calcium 7.6 L (8.5-10.1) mg/dl 07/30/20 Range/Units 07:42 RBC (4.2-5.4) M/uL Hgb (12.0-16.0) g/dL Hct (37-47) % RDW Std Deviation (36.4-46.3) fL [place] # (Auto) (0.11-0.59) K/uL Chloride (98-107) mmol/L BUN (7-18) mg/dl BUN/Creatinine Ratio (10-20) Glucose (70-99) mg/dl POC Glucose 110 H (70-99) mg/dl Calcium (8.5-10.1) mg/dl
[2020-07-30] MEDS: oxyCODONE/ACETAMINOPHEN 5mg/325mg TAB PO PRN (11:31)
--- NOTE | 2020-07-30 15:06 | Pharmacy Report ---
Pharmacy Glycemic Sign Off Nt - Date of Service July 30, 2020 - Assessment & Plan ASSESSMENT: * Pharmacy was consulted by Connor Osorio on 07/28 for glycemic control and to write orders per [facility] inpatient glycemic control protocol. * Patient has received 0 units of insulin since admitted - will sign off on consult * Plan to d/c novolog SSI - will restart home metformin tomorrow AM. Spoke with RN and patient eating small amt, but advancing diet. Likely pt to be discharged tomorrow PLAN FOR INPATIENT GLYCEMIC CONTROL: No changes needed to current regimen. * Resume home metformin tomorrow AM * Pharmacy is signing off of glycemic consult and will no longer be making adjustments to inpatient regimen. Please feel free to re-consult if needed. Thank you. DISCHARGE RECOMMENDATIONS: * A1c 6.1 - continue home metformin
[2020-07-31] MEDS: oxyCODONE/ACETAMINOPHEN 5mg/325mg TAB PO PRN (04:02)
[2020-07-31] MEDS: LEVOTHYROXINE SODIUM 50 MCG TABLET PO SCH (06:08)
[2020-07-31 06:28] LABS: Basophils # (auto) 0.02 K/uL (0-0.2); Basophils % (auto) 0.3 %; Eosinophils # (auto) 0.23 K/uL (0-0.5); Eosinophils % (auto) 3.2 %; Hematocrit (blood only) 31.5 % (37-47); Hemoglobin 10.3 g/dL (12.0-16.0); Immature Granulocytes # (auto) 0.01 K/uL (0.00-0.02); Immature Granulocytes % (auto) 0.1 %; Lymphocytes # (auto) 1.69 K/uL (1.2-3.4); Lymphocytes % (auto) 23.7 %; Mean Corpuscular Hemoglobin 32.6 pg (25-34); Mean Corpuscular Hgb Conc 32.7 g/dL (32-36); Mean Corpuscular Volume 99.7 fL (80-100); Mean Platelet Volume 9.2 fL (7.4-10.4); Monocytes # (auto) 0.51 K/uL (0.11-0.59); Monocytes % (auto) 7.1 %; Neutrophils # (auto) 4.68 K/uL (1.4-6.5); Neutrophils % (auto) 65.6 %; Platelet Count 194 K/uL (130-400); RDW Coefficient of Variation 13.7 % (11.5-14.5); RDW Standard Deviation 49.7 fL (36.4-46.3); Red Blood Count 3.16 M/uL (4.2-5.4); White Blood Count 7.14 K/uL (4.8-10.8)
[2020-07-31 06:53] LABS: BUN Creatinine Ratio 9.8 (10-20); Calcium 7.8 mg/dl (8.5-10.1); Creatinine Clr Calc Pharmacy 81.6 ml/min; Est GFR (African American) 105.2; Est GFR (Non-African American) 90.7; Potassium 3.8 mmol/L (3.5-5.1)
[2020-07-31] MEDS: ASPIRIN 81 MG ECTAB PO SCH (08:16)
[2020-07-31] MEDS: PHENYTOIN 50 MG CHEW PO SCH (08:16)
[2020-07-31] MEDS: metFORMIN HCL 500 MG TAB PO SCH ×2 (08:17→17:03)
[2020-07-31] MEDS: levETIRAcetam 250 MG TAB PO SCH (08:17)
[2020-07-31] MEDS: PHENYTOIN SODIUM ER 100 MG CAP PO SCH (08:17)
[2020-07-31] MEDS: ONDANSETRON INJ 2 MG/ML 2 ML VIAL IV PRN (10:57)
--- NOTE | 2020-07-31 11:47 | Surgery Progress Note ---
Date of Service F/U S/P lap rigoberto, ERCP, doing better, less epigastric pain, no nausea, no vomiting, tolerated diet. July 31, 2020 Assessment & Plan (1) Gallstone pancreatitis: 84 yr old woman with gallstone pancreatitis and CT scan showing a stone in the common bile duct at level of pancreas. Now s/p ercp/ stone removal/ lap cholecystectomy yesterday morning. Postop course is going well but needs better pain management. States she has tolerated percocet in the past - will try this for pain control. Advance diet as tolerated. Once pain under control, ok to discharge from surgical standpoint - f/u in office ([phone]) in 2 weeks, ok to remove gauze dressings 24 hours after surgery, ok to shower and get steristrips wet, diet: low fat foods for 4-6 weeks. Thank you. 07/31/2020 11:46AM F/U S/P lap rigoberto, ERCP, pt is still have mild RUQ pain, repeat labs in am, CBC, CMP, will F/U (2) Type 2 diabetes mellitus: (3) Seizure disorder: Admission and Anticipated Discharge Date Admission Date: July 28, 2020 Supervising Physician Co-Signing Physician Notes Resident Physician Supervision Note: I independently interviewed and examined the patient and verified the villarreal history and physical, reviewed labs and image studies, discussed the case with the resident Dr. Sweeney and agree with the findings and care plan. Subjective Patient evaluated at the bedside this AM. Still noting some abdominal bloating and discomfort. Stated that nausea had improved, though was still present occasionally, requesting some crackers to help "settle my stomach." Otherwise denies any chest pain, pressure, SOB, dizziness, dysuria, fever, chills. Review of Systems Review of Systems: memory issues since stroke, history of constipation for which she needed stool softeners at one time no cardiac or pulmonary complaints seizure disorder on meds Physical Exam Constitutional: WD/WN, vitals as above well developed Eyes: PERRL, conjunctivae normal, anicteric sclerae ENMT: external ear and nose normal, oropharynx normal Neck: trachea midline, no thyromegaly Respiratory: normal respiratory effort, lungs clear to auscultation normal respiratory effort Cardiovascular: RRR, no murmur, no edema Gastrointestinal (Abdomen): Percussion/Palpation: + abdomen tender and abdomen soft mild tenderness at RUQ, no rebound pain, no distend, all dressing intact, no redness, BS + Neurologic: awake Psychiatric: Orientation: alert and oriented x 3 Results & Data ([facility]) Vital Signs (Past 12 Hours) Vital Signs Temp Pulse Pulse Resp BP Pulse Ox 07/31/20 11:41 36.9 C 79 16 122/59 L 92 07/31/20 07:30 36.6 C 85 16 154/73 H 91 07/31/20 04:00 36.6 C 80 20 124/75 90 07/31/20 02:12 82 Laboratory Results Abnormal lab results 07/30/20 07/30/20 07/30/20 Range/Units 11:42 16:54 20:10 RBC (4.2-5.4) M/uL Hgb (12.0-16.0) g/dL Hct (37-47) % RDW Std Deviation (36.4-46.3) fL Chloride (98-107) mmol/L BUN (7-18) mg/dl Creatinine (0.6-1.2) mg/dl BUN/Creatinine Ratio (10-20) Glucose (70-99) mg/dl POC Glucose 105 H 107 H 117 H (70-99) mg/dl Calcium (8.5-10.1) mg/dl 07/31/20 07/31/20 07/31/20 Range/Units 06:02 06:02 07:48 RBC 3.16 L (4.2-5.4) M/uL Hgb 10.3 L (12.0-16.0) g/dL Hct 31.5 L (37-47) % RDW Std Deviation 49.7 H (36.4-46.3) fL Chloride 109 H (98-107) mmol/L BUN 5 L (7-18) mg/dl Creatinine 0.49 L (0.6-1.2) mg/dl BUN/Creatinine Ratio 9.8 L (10-20) Glucose 109 H (70-99) mg/dl POC Glucose 109 H (70-99) mg/dl Calcium 7.8 L (8.5-10.1) mg/dl PG Care Time/CCT Total # of Minutes Spent Total Time Spent with Patient: Total time spent is greater than 50% in coordination of care (as documented) at patient's floor/unit and/or counseling patient: Coding Level of Care Code 67441 Subseq Hosp Care Lvl 2 Diagnoses Gallstone pancreatitis K85.10 Type 2 diabetes mellitus E11.9 Seizure disorder G40.909
--- NOTE | 2020-07-31 13:45 | Gastroenterology Progress Note ---
Date of Service July 31, 2020 Assessment & Plan (1) Choledocholithiasis: This is an 84 y/o female with gallstone pancreatitis s/p ERCP with CBD stone removed and CBD stent placed, EGD with erosive gastropathy noted. Pt then underwent lap rigoberto. Postop she is doing well; labs are stable, pain being managed by surgery team. - Can advance diet as per surgery/primary teams - Repeat ERCP in 6 weeks for stent removal - Would avoid NSAIDs - GI will sign off, please call with questions (2) Gallstone pancreatitis: Admission and Anticipated Discharge Date Admission Date: July 28, 2020 Supervising Physician Co-Signing Physician Notes I saw and evaluated the patient. She appears to be improving well from her ERCP and cholecystectomy performed over the weekend. Recommendations Repeat ERCP in 6 to 8 weeks Please call with any questions or concerns, GI to sign off Subjective Pt feeling improved today; still having some abd pain, being managed by surgical team. Denies vomiting, hematemesis, melena, hematochezia, fever, CP, SOB. Review of Systems Review of Systems: All systems reviewed & are unremarkable except as noted in HPI & below Physical Exam Constitutional: WD/WN, vitals as above no acute distress Respiratory: normal respiratory effort Cardiovascular: Rate/Rhythm: regular rate and regular rhythm Gastrointestinal (Abdomen): Inspection/Auscultation: abdomen not distended Percussion/Palpation: abdomen soft mild upper abd tenderness, no guarding Psychiatric: Orientation: alert and cooperative Results & Data ([facility]) Vital Signs (Past 12 Hours) Vital Signs Temp Pulse Pulse Resp BP Pulse Ox 07/31/20 11:41 36.9 C 79 16 122/59 L 92 07/31/20 07:30 36.6 C 85 16 154/73 H 91 07/31/20 04:00 36.6 C 80 20 124/75 90 07/31/20 02:12 82 Laboratory Results 07/31/20 07/31/20 07/31/20 Range/Units 11:48 07:48 06:02 WBC (4.8-10.8) K/uL RBC (4.2-5.4) M/uL Hgb (12.0-16.0) g/dL Hct (37-47) % MCV (80-100) fL MCH (25-34) pg MCHC (32-36) g/dL RDW Std Deviation (36.4-46.3) fL RDW Coeff of Ana (11.5-14.5) % Plt Count (130-400) K/uL MPV (7.4-10.4) fL Immature Gran % (Auto) % Neut % (Auto) % Lymph % (Auto) % [place] % (Auto) % Eos % (Auto) % Baso % (Auto) % Neut # (Auto) (1.4-6.5) K/uL Lymph # (Auto) (1.2-3.4) K/uL [place] # (Auto) (0.11-0.59) K/uL Eos # (Auto) (0-0.5) K/uL Baso # (Auto) (0-0.2) K/uL Immature Gran # (Auto) (0.00-0.02) K/uL Sodium 140 (136-145) mmol/L Potassium 3.8 (3.5-5.1) mmol/L Chloride 109 H (98-107) mmol/L Carbon Dioxide 25 (21-32) mmol/L Anion Gap 6.0 (3-11) BUN 5 L (7-18) mg/dl Creatinine 0.49 L (0.6-1.2) mg/dl Est Cr Clr Drug Dosing 81.6 ml/min Est GFR ( Amer) 105.2 Est GFR (Non-Af Amer) 90.7 BUN/Creatinine Ratio 9.8 L (10-20) Glucose 109 H (70-99) mg/dl POC Glucose 123 H 109 H (70-99) mg/dl Calcium 7.8 L (8.5-10.1) mg/dl 07/31/20 07/30/20 07/30/20 Range/Units 06:02 20:10 16:54 WBC 7.14 (4.8-10.8) K/uL RBC 3.16 L (4.2-5.4) M/uL Hgb 10.3 L (12.0-16.0) g/dL Hct 31.5 L (37-47) % MCV 99.7 (80-100) fL MCH 32.6 (25-34) pg MCHC 32.7 (32-36) g/dL RDW Std Deviation 49.7 H (36.4-46.3) fL RDW Coeff of Ana 13.7 (11.5-14.5) % Plt Count 194 (130-400) K/uL MPV 9.2 (7.4-10.4) fL Immature Gran % (Auto) 0.1 % Neut % (Auto) 65.6 % Lymph % (Auto) 23.7 % [place] % (Auto) 7.1 % Eos % (Auto) 3.2 % Baso % (Auto) 0.3 % Neut # (Auto) 4.68 (1.4-6.5) K/uL Lymph # (Auto) 1.69 (1.2-3.4) K/uL [place] # (Auto) 0.51 (0.11-0.59) K/uL Eos # (Auto) 0.23 (0-0.5) K/uL Baso # (Auto) 0.02 (0-0.2) K/uL Immature Gran # (Auto) 0.01 (0.00-0.02) K/uL Sodium (136-145) mmol/L Potassium (3.5-5.1) mmol/L Chloride (98-107) mmol/L Carbon Dioxide (21-32) mmol/L Anion Gap (3-11) BUN (7-18) mg/dl Creatinine (0.6-1.2) mg/dl Est Cr Clr Drug Dosing ml/min Est GFR ( Amer) Est GFR (Non-Af Amer) BUN/Creatinine Ratio (10-20) Glucose (70-99) mg/dl POC Glucose 117 H 107 H (70-99) mg/dl Calcium (8.5-10.1) mg/dl
--- NOTE | 2020-07-31 16:36 | Discharge Summary ---
Date of Service July 31, 2020 Admission HPI Per Admitting Provider Attending: Dr. Pickens This is an 84-year-old female who presented with abdominal pain and was found to have an inflamed gallbladder and gallstone in the common bile duct at the head of the pancreas. She was seen by gastroenterology and will undergo ERCP tomorrow with Dr. Rodas. She also was evaluated by Dr. Roslyn Pond and will most likely undergo cholecystectomy following the ERCP. She is curr ently n.p.o. except for meds. The patient has a past medical history including diabetes mellitus type 2 on Metformin, dyslipidemia, history of cerebrovascular accident x2, osteoporosis, osteoarthritis, hypothyroidism, GERD, seizure disorder since age 14. She states that she was doing well until yesterday at approximately 4 in the afternoon when she began to have nausea. This was followed by vomiting and then later by diarrhea. The nausea and vomiting continued throughout the night and into this morning. She presented to the emergency department and had a CT abdomen pelvis which showed cholecystitis and choledocholithiasis with a calcified gallstone at the head of the pancreas. She has no evidence of pancreatitis on CT scan. She has no hematochezia, melena, bright red blood per rectum. Aside from her abdominal pain, she has no other pain. She denies fever, chills, sweats, rigors. She has no respiratory complaints. She has no chest pain. She was Covid tested and this was - 07/28/2020. Admission Exam Per Admitting Provider GENERAL : No acute distress EYES: No icterus, gaze conjugate NOSE: No evidence of epistaxis MOUTH: No lesions or candidiasis NECK: Supple LUNGS: CTA B/L, no wheezes, rales or rhonchi HEART: Regular, rate controlled ABDOMEN: Soft, ND, BS Present. Tender to palpation. Positive for guarding. Positive for rebound tenderness EXTREMITIES: No LE edema, pedal pulses intact NEURO: A&OX3 Principal Diagnosis Cholecystitis Choledocholithiasis Discharge Exam Constitutional WD/WN, vitals as above Eyes PERRL, conjunctivae normal, anicteric sclerae ENMT external ear and nose normal, oropharynx normal Neck normal visual inspection Respiratory normal respiratory effort, lungs clear to auscultation Cardiovascular RRR, no murmur, no edema Gastrointestinal (Abdomen) abdomen soft, slightly tender at epigastric region to palpation, incisions c/d/i Skin no rashes, warm and dry Psychiatric A+Ox3, euthymic affect Discharge Data Allergies Allergy/AdvReac Type Severity Reaction Status Date / Time allopurinol [From Zyloprim] Allergy Unknown Unknown Verified 07/28/20 14:32 lorazepam Allergy Unknown Unknown Verified 07/28/20 14:32 nortriptyline Allergy Unknown Unknown Verified 07/28/20 14:32 Opioids - Morphine Analogues Allergy Unknown Unknown Verified 07/28/20 14:32 peanut Allergy Unknown SNEEZE, Verified 07/28/20 14:32 COUGH Penicillins Allergy Unknown Unknown Verified 07/28/20 14:32 Sulfa (Sulfonamide Allergy Unknown Unknown Verified 07/28/20 14:32 Antibiotics) levofloxacin [From Levaquin] AdvReac Intermediate Possible Verified 07/28/20 14:32 seizure risedronate sodium AdvReac Intermediate Intolerence Verified 07/28/20 14:32 [From Actonel] Consultations 07/28/20 15:22 Consult General Surgery Stat ED Decision to Admit Stat 07/28/20 15:37 Consult Gastroenterology Stat 07/28/20 19:31 Consult Gastroenterology Routine Consult General Surgery Routine Procedures Performed Operation Date: 07/29/20 07:30 Actual Procedures p Endoscopic Retrograde Cholangiopancreatogram(Not Applicable) - Danielle Rodas MD s Laparoscopic Cholecystectomy(Not Applicable) - Roslyn Pond MD Ordered Studies 07/28/20 13:07 CT abd pelvis IV con only Stat 07/29/20 06:48 US upper EUS PACS images Routine 07/29/20 07:00 FL ERCP biliary ductal Routine Hospital Course (1) Choledocholithiasis: Patient is an 84 year old female with PMHx DM2, Dyslipidemia, Hypothyroidism, Seizure Disorder that presented initially with abdominal pain and found to have cholecystitis and choledocholithiasis. Patient was evaluated by GI and General Surgery now s/p ERCP and cholecystectomy under the same anesthesia. Cholecystitis and Choledocholithiasis -CT Ab/Pelv showing cholelithiasis and choledocholithiasis with evidence of acute cholecystitis -S/P ERCP 07/29/20 with removal of 1 stone, removal of sludge, and placement of stent in common bile duct. -Repeat ERCP in 6 weeks for removal of stent. -S/P Lap Cholecystectomy 07/29/20 shortly after ERCP under the same anesthesia without complications. -Was started on empiric antibiotics Metronidazole 500mg q8h and Cefoxitin 1000mg q6h -- discontinued -Pain improving - home with Percocet 5/325mg -From surgical standpoint -F/U in office in 2 weeks -Remove gauze dressings 24 hours after surgery, OK to shower -Low fat foods for 4-6 weeks. Deconditioning -PT evaluation done -would likely benefit from home therapy. Will reach case mx tomorrow am - to arrange home PT Seizure Disorder -Continue Phenytoin and Keppra Hypothyroidism -Continue levothyroxine Hx. CVA -Continue home ASA HLD -continue atorvastatin Total Time Total Time Spent Total Time Spent (In Minutes): see attending attestation Discharge Plan Discharge Items Patient Disposition: Home - Self-Care Reason For Visit: CHOLECYCTECTOMY Discharge Diagnosis: cholecystitis / choledocholithiasis Activity: Per Instructions section Non-emergency contact: Primary Care Provider and Surgeon Call non-emergency contact if: your temperature is above 101.5 Follow-up/Referrals: Francesca Tillman MD [Primary Care Provider] - (Your appointment with Francesca Tillman is on Saturday, August 08, 2020 at 2:00 p.m If you need to reschedule please call [phone] Please arrive for your appointment 15 minutes early) Diet: Regular Addtl Attending Provider Instructions: Gallbladder inflammation (Cholecystitis), obstructing gallstone (Choledocholithiasis) You came to the hospital for pain and were found to have a gallstone that was causing inflammation and blocking the drainage of bile from your bile duct. You were seen by GI and surgery and had the stone removed and surgery to remove your gallbladder. Follow up You will need to follow up with surgery in 2 weeks. You will also need to follow up with your primary care doctor. Return precautions If you develop fevers, worsening pain, or concerns call or come in to get evaluated. Pending Studies at Discharge: Yes Studies:: blood cultures negative at 5 days Stand-Alone Forms: My [employer], Smoking Cessation Medications and DC Order Prescriptions: New oxycodone-acetaminophen [Percocet] 5-325 mg Tablet 1 tab PO Q4H PRN (Reason: pain) Qty: 7 RF: 0 Continued atorvastatin 20 mg tablet 20 mg PO QAM Qty: 90 RF: 3 metformin 500 mg tablet 500 mg PO BID Qty: 180 RF: 3 phenytoin [Dilantin Infatabs] 50 mg tablet,chewable 50 mg PO QAM Qty: 30 RF: 5 phenytoin sodium extended [Dilantin Extended] 100 mg capsule 100 mg PO .COMPLEX Qty: 270 RF: 1 levetiracetam 750 mg tablet 750 mg PO BID Qty: 180 RF: 3 aspirin 81 mg tablet,chewable 81 mg PO QAM RF: 0 levothyroxine 50 mcg tablet 50 mcg PO QAM RF: 0 naproxen 375 mg tablet 375 mg PO BID PRN (Reason: Pain) RF: 0 Discharge Orders: Discharge Order (Routine); Ordered 07/31/20 Ordered By: Santo Aquino/Other Patient Handouts: Managing Type 2 Diabetes Admission Data Admit Date/Time: 07/28/20 17:21 Attending Provider: Yuki Lazcano Admit Provider: Jonathan Pickens Primary Care Provider: Francesca Tillman Other Providers: Roslyn Pond ; Danielle Rodas ; Jonathan Pickens ; [facility] Other Interventions: Discharge Summary Assessment (RN) Last Done: 07/31/20 17:12 Supervising Physician Co-Signing Physician Notes Resident Physician Supervision Note: I independently interviewed and examined the patient and verified the villarreal history and physical, reviewed labs and image studies, discussed the case with the resident Dr. Fernandez and agree with the findings and care plan. Resident Activity Tracking Resident Involvement: Resident Care Provided Care Provided: Adult Hospital Medicine CBC Results Results Complete Blood Count Results: RBC 3.16 M/uL (4.2-5.4) L 07/31/20 WBC 7.14 K/uL (4.8-10.8) 07/31/20 Hgb 10.3 g/dL (12.0-16.0) L 07/31/20 Hct 31.5 % (37-47) L 07/31/20 Plt Count 194 K/uL (130-400) 07/31/20 Chemistry (BMP) Results BMP Results: Sodium 140 mmol/L (136-145) 07/31/20 Potassium 3.8 mmol/L (3.5-5.1) 07/31/20 Chloride 109 mmol/L (98-107) H 07/31/20 BUN 5 mg/dl (7-18) L 07/31/20 Creatinine 0.49 mg/dl (0.6-1.2) L 07/31/20 Glucose 109 mg/dl (70-99) H 07/31/20
== END 2020-07-31 18:44 | disposition home health service (06) | DRG 417 ==
LOC: ED 12:23 → SUATTDRO 17:21 → 2N 17:21

== ENCOUNTER 2021-11-13 16:55 | Inpatient (IN) ==
--- NOTE | 2021-11-13 17:52 | Emergency Department Note ---
Impression & Plan Left leg weakness, Hypomagnesemia, Fall, Stroke-like symptoms, Acute hyponatremia ED Provider Note NAME: CARMEN SINHA AGE: 85 SEX: F : 1935 ARRIVES VIA: Ambulance INFORMANT: [Patient][family] ED PROVIDER(S): [Connor Kong MD] Patient first seen by me at 1728 CHIEF COMPLAINT: Fall, leg numbness HISTORY OF PRESENT ILLNESS: The patient is an 85-year-old female presents to the ER with a fall secondary to leg numbness. Things began at around 230pm, 3 hours ago. The patient was sitting in a chair, she went to stand and her left leg gave out because of numb ness and weakness. She states it is not functioning right. The last time she walked without difficulty was about 5-1/2 hours ago. She did not really suffer any injury from the fall. Patient complains of numbness from her knee to her ankle/foot. She does not think the thigh is numb. She denies any back pain, she denies upper extremity numbness, facial numbness or headache. She has not had shortness of breath or fever. In the last month, the patient has been sick with palpitations and some difficulty with her ears. She was placed on cefuroxime 6 days ago for the possibility of a sinusitis/otitis. Patient has had a previous CVA. She also has history of seizures. She takes Keppra and Dilantin. There was no loss of consciousness with this event today. No seizure activity reported. The patient has a history of some left knee arthritis however, she never has had weakness, numbness or clumsiness of the left leg. REVIEW OF SYSTEMS: See HPI for pertinent positives and negatives. A total of ten systems were reviewed and were otherwise negative. PMHx/PSHx: See Below SOCIAL HISTORY: See Below. PHYSICAL EXAM: GENERAL: Patient is in no acute distress. HEENT: No acute trauma, normocephalic atraumatic, mucous membranes moist, no nasal congestion, no scleral icterus. TMs clear bilaterally. NECK: No stridor, no adenopathy, no meningismus, trachea is midline. LUNGS: Clear to auscultation bilaterally, no wheeze, no rhonchi, breath sounds equal. HEART: Without murmurs gallops or rubs, regular rate and rhythm. ABDOMEN: Soft, nontender, bowel sounds positive, no hernias, no peritonitis. EXTREMITIES: No cyanosis or edema, full range of motion of all the joints w ithout pain or difficulty, no signs for acute trauma. Strong distal dorsalis pedis pulse on the left NEUROLOGIC: Oriented x 3. There is no facial droop or speech slur. No upper extremity cerebellar dysfunction or drift. The patient has a difficult time raising her left leg. Plantar flexion of the left foot is quite weak. She feels numbness across the leg from the knee to the foot. SKIN: No rash, no jaundice, no diaphoresis. DIFFERENTIAL DIAGNOSIS: Infection, UTI, dehydration, metabolic abnormality, hypo/hyperglycemia, electrolyte disturbance, anemia, hypoxia, cardiac sources, intracerebral event, toxicologic issues, stroke, TIA, as well as other pathologies. EMERGENCY DEPARTMENT COURSE/PROCEDURES: ECG: Indication was weakness. The ECG shows a normal sinus rhythm with a rate of 73. There is some nonspecific ST change diffusely. There is no ST elevation, no PVCs. The QTc is 445. Continuous Cardiac Monitoring: An order was placed for continuous cardiac monitoring. The monitor shows a rate of 73 with normal sinus rhythm. Critical Care Note: I have personally spent 54 minutes of critical care time in the direct management of this patient. This includes bedside care, interpretation of diagnostic studies, and testing, discussion with consultants, patient, and family members, and other required patient management activities. This 54 minutes is in excess of all separately billable procedures. MEDICAL DECISION MAKING: There is no leukocytosis or concerning anemia. There is a normal platelet count. No coagulopathy. Renal panel testing shows a low sodium and a low magnesium. No concerning liver enzyme elevation. The patient appeared to be in a euthyroid state. ECG shows a normal sinus rhythm, no ST elevation. Cardiac enzyme testing x1 is not consistent with acute cardiac injury. Urinalysis does not show infection. Urine tox was negative. Dilantin level was therapeutic. Covid testing returned negative. Chest x-ray did not show mediastinal widening, pneumonia or CHF. Brain CT showed no acute bleed or mass-effect. CT angio of the brain and neck were performed, there was no stenosis or occlusion. On my exam, the patient had some weakness in the left lower extremity as described above. No upper extremity weakness, no upper extremity drift, no speech slur. A stroke alert was called. Patient was seen by the stroke neurologist. The patient is not a candidate for TPA given her minimal symptoms and given the fact that her last known well time was about 5-1/2 hours ago. The patient was given IV magnesium, 2 g were ordered. She was given IV saline. I talked to the patient and her family at length. Certainly, her symptoms may be from her electrolyte abnormalities. A small stroke not seen on CT imaging could also be responsible for her presentation. The patient requires a hospital stay, an MRI and neurology consult. I spoke with case management, the on-call hospitalist was consulted. Past Med/Surg History Medical History Acid reflux Dyslipidemia Hiatal hernia History of stroke 20 YRS AGO Hypothyroidism Osteoarthritis Osteoporosis Seizure disorder epilepsy, primary generalized seizure disorder--follows with Dr. 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- taking seizure meds- last seizure beginning of 2019 secondary to low phenytoin level in context of tx of infection- has had no interval seizures- clinically stable- follow up six months Type 2 diabetes mellitus Surgical History (Updated 07/26/21 @ 15:44 by Destiney Parra LPN) H/O: hysterectomy (~1965) History of ankle surgery x2--left d/t fracture History of appendectomy (~1965) History of colonoscopy History of ERCP (07/29/20) History of open reduction and internal fixation (ORIF) procedure left wrist--hardware removed History of right cataract extraction History of surgery on left wrist History of tooth extraction all top removed/most of bottom S/P cholecystectomy (07/29/20) S/P endoscopic carpal tunnel release 06/14/2021 Right wrist Family History Father Hypertension Mother Diabetes Myocardial infarction Brother Diabetes Lung disease Brother Diabetes Brother Diabetes Brother Diabetes Brother Diabetes Other No family history of adverse response to anesthesia Denies family history of Ovarian cancer Prostate cancer Breast cancer Colorectal cancer Social History Smoking Status: Never smoker Second Hand Exposure: Yes ( and brother used to smoke ); Hx Alcohol Use: No Hx Substance Use: No Preferred Language: Spanish Communication Ability: Effective Visual Impairment: No Limitations Hearing Ability: Hard of Hearing Cylinder Loader Required: No Beliefs That Will Affect Care: None marital status: / Current Living Situation: Family Current Living Situation Comment: Son lives with her current occupational status: retired 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 How many Children do You have: 6 Feels Safe at Home: Yes Childhood Exposure to Second-Hand Smoke: Yes Diet Comment: Patient watches serving sizes and counts carefully Dental Care, Regularly: No Physical Activity Frequency: Does not Exercise Seatbelt Use: always Sunscreen Use: Yes (when she goes outside ) Gender Identity: Female Assistive Devices: Cane, Denture - Upper and Glasses Allergies Allergies Allergy/AdvReac Type Severity Reaction Status Date / Time levofloxacin [From Levaquin] Allergy Severe Possible Verified 11/13/21 20:41 seizure peanut Allergy Mild SNEEZE, Verified 11/13/21 20:41 COUGH allopurinol [From Zyloprim] Allergy Unknown Unknown Verified 11/13/21 20:41 lorazepam Allergy Unknown Unknown Verified 11/13/21 20:41 nortriptyline Allergy Unknown Unknown Verified 11/13/21 20:41 Opioids - Morphine Analogues Allergy Unknown Unknown Verified 11/13/21 20:41 Penicillins Allergy Unknown Unknown Verified 11/13/21 20:41 Sulfa (Sulfonamide Allergy Unknown Unknown Verified 11/13/21 20:41 Antibiotics) risedronate sodium AdvReac Intermediate Intolerence Verified 11/13/21 20:41 [From Actonel] Home Meds Home Medications Medication Instructions Recorded Confirmed naproxen 375 mg tablet 375 mg PO BID PRN 11/30/19 11/13/21 aspirin 81 mg chewable tablet 81 mg PO QAM 07/04/20 11/13/21 Previous Rx's Medication Instructions Recorded metformin 500 mg tablet 500 mg PO BID #180 tab 04/24/21 diclofenac sodium 1 % topical gel 2 g TOPICAL QID #100 g 05/02/21 (Voltaren Arthritis Pain) levothyroxine 50 mcg tablet 25 mcg PO DAILY #90 tab 05/08/21 Dilantin Extended 100 mg capsule 100 mg PO .COMPLEX 90 Days #270 06/12/21 (phenytoin sodium extended) cap NS Dilantin Infatabs 50 mg chewable 50 mg PO QAM #90 tab NS 07/26/21 tablet (phenytoin) levetiracetam 750 mg tablet 750 mg PO BID #180 tab 07/26/21 atorvastatin 20 mg tablet 20 mg PO DAILY #90 tab 10/16/21 cefuroxime axetil 500 mg tablet 500 mg PO BID #20 tab 11/09/21 Results & Data (ED) Vital Signs Vital Signs - 24 hr 11/13/21 17:15 11/13/21 19:00 11/13/21 21:00 Temperature 36.6 C Temperature Source Oral Pulse Rate 70 Pulse Rate [Left Finger] 73 82 75 Pulse Rhythm Regular Pulse Rhythm [Left Finger] Regular Regular Regular Pulse Strength Normal Pulse Strength [Left Finger] Normal Normal Normal Respiratory Rate 17 17 17 Respiratory Effort / Characteristics Non-Labored Spontaneous Non-Labored Spontaneous Non-Labored Spontaneous Respiratory Depth Normal Normal Normal Respiratory Pattern Regular Blood Pressure 130/76 Blood Pressure [Right Arm] 130/76 128/70 Blood Pressure Mean 94 Blood Pressure Mean [Right Arm] 94 89 Blood Pressure Position Lying Blood Pressure Position [Right Arm] Lying Lying Pulse Oximetry 98 97 97 Oxygen Delivery Method Room Air Room Air Room Air Sepsis Recent Fever Within 48 Hours No Sepsis New/Unexplained Change in Mental Status No Sepsis Action Taken by Nursing No Action Required Home Medications Current Medication List: was personally reviewed by me Laboratory Data Attestation: I reviewed the patient's lab results. Result diagrams: 11/13/21 19:04 11/13/21 19:04 Lab Results 11/13/21 11/13/21 11/13/21 Range/Units 18:33 19:04 19:04 WBC 9.19 (4.8-10.8) K/uL RBC 3.35 L (4.2-5.4) M/uL Hgb 11.0 L (12.0-16.0) g/dL Hct 31.7 L (37-47) % MCV 94.6 (80-100) fL MCH 32.8 (25-34) pg MCHC 34.7 (32-36) g/dL RDW Std Deviation 46.0 (36.4-46.3) fL RDW Coeff of Ana 13.2 (11.5-14.5) % Plt Count 218 (130-400) K/uL MPV 9.0 (7.4-10.4) fL Immature Gran % (Auto) 0.2 % Neut % (Auto) 71.1 % Lymph % (Auto) 18.6 % Craven % (Auto) 8.5 % Eos % (Auto) 1.4 % Baso % (Auto) 0.2 % Neut # (Auto) 6.53 H (1.4-6.5) K/uL Lymph # (Auto) 1.71 (1.2-3.4) K/uL Craven # (Auto) 0.78 H (0.11-0.59) K/uL Eos # (Auto) 0.13 (0-0.5) K/uL Baso # (Auto) 0.02 (0-0.2) K/uL Immature Gran # (Auto) 0.02 (0.00-0.02) K/uL PT 11.0 (9.0-12.0) Seconds INR 1.0 (0.9-1.1) APTT 25.4 (21.0-31.0) Seconds PTT Ratio 0.9 Sodium (136-145) mmol/L Potassium (3.5-5.1) mmol/L Chloride (98-107) mmol/L Carbon Dioxide (21-32) mmol/L Anion Gap (3-11) BUN (6-23) mg/dl Creatinine (0.6-1.2) mg/dl Est Cr Clr Drug Dosing ml/min Est GFR ( Amer) ml/min Est GFR (Non-Af Amer) ml/min BUN/Creatinine Ratio (10-20) Glucose (70-99(Fasting)) mg/dl Osmolality (280-300) mOsm/kg Calcium (8.5-10.1) mg/dl Magnesium (1.7-2.4) mg/dl Total Bilirubin (0.2-1.0) mg/dl AST (13-39) U/L ALT (7-52) U/L Alkaline Phosphatase (34-104) U/L Troponin I (0-0.04) ng/ml Total Protein (6.0-8.3) gm/dl Albumin (3.4-5.0) gm/dl Globulin (2.5-4.0) gm/dl Albumin/Globulin Ratio (0.9-2) TSH (0.300-4.500) uIu/ml Urine Color Urine Appearance (Clear) Urine pH (4.5-7.5) Ur Specific Decker (1.000-1.030) Urine Protein (Negative) Urine Glucose (UA) (Negative) Urine Ketones (Negative) Urine Blood (Negative) Urine Nitrite (Negative) Urine Bilirubin (Negative) Urine Urobilinogen (Negative) Ur Leukocyte Esterase (Negative) Urine Osmolality (500-800) mOsm/kg Ur Random Creatinine mg/dl Ur Random Sodium mmol/L Urine Opiates Screen (Neg) Ur Methadone, Qual (Neg) Urine Barbiturates (Neg) Phenytoin (10-20) mcg/ml Ur Phencyclidine (PCP) (Neg) U Amphetamin/Meth Scrn (Neg) MDMA (Ecstasy) Screen (Neg) U Benzodiazepines Scrn (Neg) Ur Cocaine Metabolite (Neg) U Marijuana (THC) Screen (Neg) SARS-CoV-2, RNA, NAAT NEGATIVE (NEGATIVE) 11/13/21 11/13/21 11/13/21 Range/Units 19:04 19:04 19:04 WBC (4.8-10.8) K/uL RBC (4.2-5.4) M/uL Hgb (12.0-16.0) g/dL Hct (37-47) % MCV (80-100) fL MCH (25-34) pg MCHC (32-36) g/dL RDW Std Deviation (36.4-46.3) fL RDW Coeff of Ana (11.5-14.5) % Plt Count (130-400) K/uL MPV (7.4-10.4) fL Immature Gran % (Auto) % Neut % (Auto) % Lymph % (Auto) % Craven % (Auto) % Eos % (Auto) % Baso % (Auto) % Neut # (Auto) (1.4-6.5) K/uL Lymph # (Auto) (1.2-3.4) K/uL Craven # (Auto) (0.11-0.59) K/uL Eos # (Auto) (0-0.5) K/uL Baso # (Auto) (0-0.2) K/uL Immature Gran # (Auto) (0.00-0.02) K/uL PT (9.0-12.0) Seconds INR (0.9-1.1) APTT (21.0-31.0) Seconds PTT Ratio Sodium 124 L (136-145) mmol/L Potassium 4.2 (3.5-5.1) mmol/L Chloride 93 L (98-107) mmol/L Carbon Dioxide 25 (21-32) mmol/L Anion Gap 6 (3-11) BUN 8 (6-23) mg/dl Creatinine 0.52 L (0.6-1.2) mg/dl Est Cr Clr Drug Dosing 80.1 ml/min Est GFR ( Amer) 102.4 ml/min Est GFR (Non-Af Amer) 88.4 ml/min BUN/Creatinine Ratio 15.4 (10-20) Glucose 98 (70-99(Fasting)) mg/dl Osmolality (280-300) mOsm/kg Calcium 8.4 L (8.5-10.1) mg/dl Magnesium 1.4 L (1.7-2.4) mg/dl Total Bilirubin 0.2 (0.2-1.0) mg/dl AST 16 (13-39) U/L ALT 13 (7-52) U/L Alkaline Phosphatase 76 (34-104) U/L Troponin I < 0.03 (0-0.04) ng/ml Total Protein 6.0 (6.0-8.3) gm/dl Albumin 3.7 (3.4-5.0) gm/dl Globulin 2.3 L (2.5-4.0) gm/dl Albumin/Globulin Ratio 1.6 (0.9-2) TSH 0.468 (0.300-4.500) uIu/ml Urine Color Urine Appearance (Clear) Urine pH (4.5-7.5) Ur Specific Decker (1.000-1.030) Urine Protein (Negative) Urine Glucose (UA) (Negative) Urine Ketones (Negative) Urine Blood (Negative) Urine Nitrite (Negative) Urine Bilirubin (Negative) Urine Urobilinogen (Negative) Ur Leukocyte Esterase (Negative) Urine Osmolality (500-800) mOsm/kg Ur Random Creatinine mg/dl Ur Random Sodium mmol/L Urine Opiates Screen (Neg) Ur Methadone, Qual (Neg) Urine Barbiturates (Neg) Phenytoin 15.4 (10-20) mcg/ml Ur Phencyclidine (PCP) (Neg) U Amphetamin/Meth Scrn (Neg) MDMA (Ecstasy) Screen (Neg) U Benzodiazepines Scrn (Neg) Ur Cocaine Metabolite (Neg) U Marijuana (THC) Screen (Neg) SARS-CoV-2, RNA, NAAT (NEGATIVE) 11/13/21 11/13/21 11/13/21 Range/Units 19:04 19:10 19:10 WBC (4.8-10.8) K/uL RBC (4.2-5.4) M/uL Hgb (12.0-16.0) g/dL Hct (37-47) % MCV (80-100) fL MCH (25-34) pg MCHC (32-36) g/dL RDW Std Deviation (36.4-46.3) fL RDW Coeff of Ana (11.5-14.5) % Plt Count (130-400) K/uL MPV (7.4-10.4) fL Immature Gran % (Auto) % Neut % (Auto) % Lymph % (Auto) % Craven % (Auto) % Eos % (Auto) % Baso % (Auto) % Neut # (Auto) (1.4-6.5) K/uL Lymph # (Auto) (1.2-3.4) K/uL Craven # (Auto) (0.11-0.59) K/uL Eos # (Auto) (0-0.5) K/uL Baso # (Auto) (0-0.2) K/uL Immature Gran # (Auto) (0.00-0.02) K/uL PT (9.0-12.0) Seconds INR (0.9-1.1) APTT (21.0-31.0) Seconds PTT Ratio Sodium (136-145) mmol/L Potassium (3.5-5.1) mmol/L Chloride (98-107) mmol/L Carbon Dioxide (21-32) mmol/L Anion Gap (3-11) BUN (6-23) mg/dl Creatinine (0.6-1.2) mg/dl Est Cr Clr Drug Dosing ml/min Est GFR ( Amer) ml/min Est GFR (Non-Af Amer) ml/min BUN/Creatinine Ratio (10-20) Glucose (70-99(Fasting)) mg/dl Osmolality 265 L (280-300) mOsm/kg Calcium (8.5-10.1) mg/dl Magnesium (1.7-2.4) mg/dl Total Bilirubin (0.2-1.0) mg/dl AST (13-39) U/L ALT (7-52) U/L Alkaline Phosphatase (34-104) U/L Troponin I (0-0.04) ng/ml Total Protein (6.0-8.3) gm/dl Albumin (3.4-5.0) gm/dl Globulin (2.5-4.0) gm/dl Albumin/Globulin Ratio (0.9-2) TSH (0.300-4.500) uIu/ml Urine Color Yellow Urine Appearance Clear (Clear) Urine pH 6.0 (4.5-7.5) Ur Specific Decker 1.014 (1.000-1.030) Urine Protein Negative (Negative) Urine Glucose (UA) Negative (Negative) Urine Ketones Negative (Negative) Urine Blood Negative (Negative) Urine Nitrite Negative (Negative) Urine Bilirubin Negative (Negative) Urine Urobilinogen Negative (Negative) Ur Leukocyte Esterase Negative (Negative) Urine Osmolality (500-800) mOsm/kg Ur Random Creatinine mg/dl Ur Random Sodium mmol/L Urine Opiates Screen Neg (Neg) Ur Methadone, Qual Neg (Neg) Urine Barbiturates Neg (Neg) Phenytoin (10-20) mcg/ml Ur Phencyclidine (PCP) Neg (Neg) U Amphetamin/Meth Scrn Neg (Neg) MDMA (Ecstasy) Screen Neg (Neg) U Benzodiazepines Scrn Neg (Neg) Ur Cocaine Metabolite Neg (Neg) U Marijuana (THC) Screen Neg (Neg) SARS-CoV-2, RNA, NAAT (NEGATIVE) 11/13/21 11/13/21 Range/Units 19:10 19:10 WBC (4.8-10.8) K/uL RBC (4.2-5.4) M/uL Hgb (12.0-16.0) g/dL Hct (37-47) % MCV (80-100) fL MCH (25-34) pg MCHC (32-36) g/dL RDW Std Deviation (36.4-46.3) fL RDW Coeff of Ana (11.5-14.5) % Plt Count (130-400) K/uL MPV (7.4-10.4) fL Immature Gran % (Auto) % Neut % (Auto) % Lymph % (Auto) % Craven % (Auto) % Eos % (Auto) % Baso % (Auto) % Neut # (Auto) (1.4-6.5) K/uL Lymph # (Auto) (1.2-3.4) K/uL Craven # (Auto) (0.11-0.59) K/uL Eos # (Auto) (0-0.5) K/uL Baso # (Auto) (0-0.2) K/uL Immature Gran # (Auto) (0.00-0.02) K/uL PT (9.0-12.0) Seconds INR (0.9-1.1) APTT (21.0-31.0) Seconds PTT Ratio Sodium (136-145) mmol/L Potassium (3.5-5.1) mmol/L Chloride (98-107) mmol/L Carbon Dioxide (21-32) mmol/L Anion Gap (3-11) BUN (6-23) mg/dl Creatinine (0.6-1.2) mg/dl Est Cr Clr Drug Dosing ml/min Est GFR ( Amer) ml/min Est GFR (Non-Af Amer) ml/min BUN/Creatinine Ratio (10-20) Glucose (70-99(Fasting)) mg/dl Osmolality (280-300) mOsm/kg Calcium (8.5-10.1) mg/dl Magnesium (1.7-2.4) mg/dl Total Bilirubin (0.2-1.0) mg/dl AST (13-39) U/L ALT (7-52) U/L Alkaline Phosphatase (34-104) U/L Troponin I (0-0.04) ng/ml Total Protein (6.0-8.3) gm/dl Albumin (3.4-5.0) gm/dl Globulin (2.5-4.0) gm/dl Albumin/Globulin Ratio (0.9-2) TSH (0.300-4.500) uIu/ml Urine Color Urine Appearance (Clear) Urine pH (4.5-7.5) Ur Specific Decker (1.000-1.030) Urine Protein (Negative) Urine Glucose (UA) (Negative) Urine Ketones (Negative) Urine Blood (Negative) Urine Nitrite (Negative) Urine Bilirubin (Negative) Urine Urobilinogen (Negative) Ur Leukocyte Esterase (Negative) Urine Osmolality 238 L (500-800) mOsm/kg Ur Random Creatinine 20.2 mg/dl Ur Random Sodium 63 mmol/L Urine Opiates Screen (Neg) Ur Methadone, Qual (Neg) Urine Barbiturates (Neg) Phenytoin (10-20) mcg/ml Ur Phencyclidine (PCP) (Neg) U Amphetamin/Meth Scrn (Neg) MDMA (Ecstasy) Screen (Neg) U Benzodiazepines Scrn (Neg) Ur Cocaine Metabolite (Neg) U Marijuana (THC) Screen (Neg) SARS-CoV-2, RNA, NAAT (NEGATIVE) Administered Medications Acetaminophen (Acetaminophen 325 Mg Tab) 650 mg PO Q4H PRN PRN Reason: pain/fever Stop: 12/13/21 20:39 Last Admin: 11/13/21 21:25 Dose: 650 mg Documented by: [id number] Discontinued Medications Sodium Chloride (Nss 1000ml) 1,000 mls @ 999 mls/hr IV .Q1H1M ONE Stop: 11/13/21 20:36 Last Admin: 11/13/21 20:16 Dose: 999 mls/hr Documented by: [id number] Magnesium Sulfate/Dextrose (Magnesium Sulfate / D5w) 1 gm in 100 mls @ 100 mls/hr IV Q1H ARIES Stop: 11/13/21 21:35 Last Admin: 11/13/21 21:25 Dose: 100 mls/hr Documented by: [id number] Infusion: 11/13/21 21:24 Dose: 0 mls/hr Documented by: [id number] Admin: 11/13/21 20:16 Dose: 100 mls/hr Documented by: [id number] Ioversol (Optiray 320 125ml) 120 ml IV ONCE ONE Stop: 11/13/21 18:54 Last Admin: 11/13/21 18:54 Dose: 120 ml Documented by: [id number] Imaging Data Radiologist's Impression: Chest X-Ray 11/13/21 17:46 XR chest 1V portable CLINICAL HISTORY: Stroke Like Symptoms TECHNIQUE: Single frontal radiograph of the chest was obtained. Comparison: Prior chest one view 07/28/2020 FINDINGS: No lines and tubes are seen. The cardiomediastinal silhouette is stable. The lungs are clear. No evidence of pleural effusion or pneumothorax. IMPRESSION: No acute chest disease. ACT 112: Negative or not required by law. Electronically signed by: Todd Burdick M.D. 11/13/2021 8:[address] 11/13/21 17:46 CT head/brain wo con CLINICAL HISTORY: Stroke Like Symptoms Technique: Contiguous axial CT images of the head were acquired from the base of the skull to the vertex without intravenous contrast administration. Images were viewed in brain, subdural and bone windows. Automated dose lowering techniques and/or adjustment according to patient size were utilized for this exam. Comparison: Comparison is made to CT head 11/30/2019 Findings: The ventricles, basal cisterns, and cerebral sulci are normal. There is no acute intracranial hemorrhage or evidence of acute territorial infarction. Neither mass effect, shift of the midline structures, nor abnormal extra-axial fluid collections are shown. Imaged portions of the paranasal sinuses and mastoid air cells are clear. The orbits appear normal. There are no acute fractures of the calvaria or scalp swelling. Impression: No acute intracranial hemorrhage, no evidence of acute territorial infarction or other acute intracranial disease process. ACT 112: Negative or not required by law. Electronically signed by: Todd Burdick M.D. 11/13/2021 6:01 PM Head CTA 11/13/21 17:46 CT angio neck with con, CT angio head w con CLINICAL HISTORY: Stroke Like Symptoms TECHNIQUE: CT angiography of the head and neck was performed following intravenous administration of iodinated contrast. Coronal and sagittal MIPS were obtained from the axial data set and were submitted for review. Automated dose lowering techniques and/or adjustment according to patient size were utilized for this examination. All measurements were calculated based on NASCET criteria. Comparison: None available at the time of this dictation. FINDINGS: Small thyroid nodules are seen which do not require follow-up by ACR criteria. CTA Neck: The aortic arch and the origins of the innominate, left subclavian, and left common carotid artery are not imaged There is no significant atherosclerotic plaque in the aortic arch or the origins of the innominate, left common carotid, and left subclavian arteries. The common carotid, external carotid, cervical segments of the internal carotid arteries, and the cervical segments of the vertebral arteries are patent without hemodynamically significant stenosis. The right vertebral artery is dominant. CTA Head: The anterior and posterior cerebral circulations are patent. No hemodynamically significant stenosis, aneurysm, dissection, or arteriovenous malformation is shown. The left vertebral artery terminates in PICA. The left GROUNDS MANAGER demonstrates origin. IMPRESSION: 1. No occlusion, hemodynamically significant stenosis, aneurysm, dissection, or arteriovenous malformation in the major intracranial arteries. 2. No occlusion, hemodynamically significant stenosis, or dissection in the major cervical arteries. Assessment of stenosis of the internal carotid arteries is based on NASCET criteria. ACT 112: Negative or not required by law. Electronically signed by: Todd Burdick M.D. 11/13/2021 7:38 PM Neck CTA 11/13/21 17:46 CT angio neck with con, CT angio head w con CLINICAL HISTORY: Stroke Like Symptoms TECHNIQUE: CT angiography of the head and neck was performed following intravenous administration of iodinated contrast. Coronal and sagittal MIPS were obtained from the axial data set and were submitted for review. Automated dose lowering techniques and/or adjustment according to patient size were utilized for this examination. All measurements were calculated based on NASCET criteria. Comparison: None available at the time of this dictation. FINDINGS: Small thyroid nodules are seen which do not require follow-up by ACR criteria. CTA Neck: The aortic arch and the origins of the innominate, left subclavian, and left common carotid artery are not imaged There is no significant atherosclerotic plaque in the aortic arch or the origins of the innominate, left common carotid, and left subclavian arteries. The common carotid, external carotid, cervical segments of the internal carotid arteries, and the cervical segments of the vertebral arteries are patent without hemodynamically significant stenosis. The right vertebral artery is dominant. CTA Head: The anterior and posterior cerebral circulations are patent. No hemodynamically significant stenosis, aneurysm, dissection, or arteriovenous malformation is shown. The left vertebral artery terminates in PICA. The left GROUNDS MANAGER demonstrates origin. IMPRESSION: 1. No occlusion, hemodynamically significant stenosis, aneurysm, dissection, or arteriovenous malformation in the major intracranial arteries. 2. No occlusion, hemodynamically significant stenosis, or dissection in the m ajor cervical arteries. Assessment of stenosis of the internal carotid arteries is based on NASCET criteria. ACT 112: Negative or not required by law. Electronically signed by: Todd Burdick M.D. 11/13/2021 7:38 PM Discharge Plan Visit Data Chief Complaint: Fall ED Provider: Connor Kong Discharge Problem: Left leg weakness, Hypomagnesemia, Fall, Stroke-like symptoms, Acute hyponatremia Patient Disposition: Admitted As Inpatient Condition: Fair Forms Stand Alone Forms: [facility] Prescriptions Prescriptions: No Action metformin 500 mg tablet 500 mg PO BID Qty: 180 RF: 3 levothyroxine 50 mcg tablet 25 mcg PO DAILY Qty: 90 RF: 3 phenytoin sodium extended [Dilantin Extended] 100 mg capsule 100 mg PO .COMPLEX 90 Days Qty: 270 RF: 1 atorvastatin 20 mg tablet 20 mg PO DAILY Qty: 90 RF: 3 diclofenac sodium [Voltaren Arthritis Pain] 1 % gel 2 g topical QID Qty: 100 RF: 2 aspirin 81 mg tablet,chewable 81 mg PO QAM RF: 0 cefuroxime axetil 500 mg tablet 500 mg PO BID Qty: 20 RF: 0 phenytoin [Dilantin Infatabs] 50 mg tablet,chewable 50 mg PO QAM Qty: 90 RF: 1 levetiracetam 750 mg tablet 750 mg PO BID Qty: 180 RF: 1 naproxen 375 mg tablet 375 mg PO BID PRN (Reason: Pain) RF: 0 Referrals Referrals: Francesca Tillman MD [Primary Care Provider] - Discharge Problem: Fall Qualifiers: Encounter type: initial encounter Qualified Code(s): W19.XXXA - Unspecified fall, initial encounter
--- NOTE | 2021-11-13 18:02 | CT Scan Report ---
CT head/brain wo con CLINICAL HISTORY: Stroke Like Symptoms Technique: Contiguous axial CT images of the head were acquired from the base of the skull to the royal simona without intravenous contrast administration. Images were viewed in brain, subdural and [facility] . Automated dose lowering techniques and/or adjustment according to patient size were utilized for this exam. Comparison: Comparison is made to CT head 11/30/2019 Findings: The ventricles, basal cisterns, and cerebral sulci are normal. There is no acute intracranial hemorrh age or evidence of acute territorial infarction. Neither mass effect, shift of the midline structures , nor abnormal extra-axial fluid collections are shown. Imaged portions of the paranasal sinuses and mastoid air cells are clear. The orbits appear normal. There are no acute fractures of the calvaria or scalp swelling. Impression: No acute intracranial hemorrhage, no evidence of acute territorial infarction or other acute intracra nial disease process. ACT 112: Negative or not required by law. Electronically signed by: Todd Burdick M.D. 11/13/2021 6:01 PM
[2021-11-13] MEDS ORDERED: OPTIRAY 320 125ml IV ONE (18:53)
[2021-11-13 19:14] LABS: Basophils # (auto) 0.02 K/uL (0-0.2); Basophils % (auto) 0.2 %; Eosinophils # (auto) 0.13 K/uL (0-0.5); Eosinophils % (auto) 1.4 %; Hematocrit (blood only) 31.7 % (37-47); Immature Granulocytes # (auto) 0.02 K/uL (0.00-0.02); Immature Granulocytes % (auto) 0.2 %; Lymphocytes # (auto) 1.71 K/uL (1.2-3.4); Lymphocytes % (auto) 18.6 %; Mean Corpuscular Hemoglobin 32.8 pg (25-34); Mean Corpuscular Hgb Conc 34.7 g/dL (32-36); Mean Corpuscular Volume 94.6 fL (80-100); Monocytes # (auto) 0.78 K/uL (0.11-0.59); Monocytes % (auto) 8.5 %; Neutrophils # (auto) 6.53 K/uL (1.4-6.5); Neutrophils % (auto) 71.1 %; Platelet Count 218 K/uL (130-400); RDW Coefficient of Variation 13.2 % (11.5-14.5); Red Blood Count 3.35 M/uL (4.2-5.4); White Blood Count 9.19 K/uL (4.8-10.8)
[2021-11-13 19:29] LABS: Partial Thromboplastin Ratio 0.9; Partial Thromboplastin Time 25.4 Seconds (21.0-31.0)
[2021-11-13 19:34] LABS: Alanine Aminotransferase 13 U/L (7-52); Albumin Globulin Ratio 1.6 (0.9-2); Albumin Level 3.7 gm/dl (3.4-5.0); Alkaline Phosphatase 76 U/L (34-104); Anion Gap 6 (3-11); Aspartate Aminotransferase 16 U/L (13-39); BUN Creatinine Ratio 15.4 (10-20); Bilirubin,Total 0.2 mg/dl (0.2-1.0); Blood Urea Nitrogen 8 mg/dl (6-23); Calcium 8.4 mg/dl (8.5-10.1); Carbon Dioxide 25 mmol/L (21-32); Chloride 93 mmol/L (98-107); Creatinine Clr Calc Pharmacy 80.1 ml/min; Est GFR (African American) 102.4 ml/min; Est GFR (Non-African American) 88.4 ml/min; Globulin 2.3 gm/dl (2.5-4.0); Glucose 98 mg/dl (70-99(Fasting)); Magnesium 1.4 mg/dl (1.7-2.4); Potassium 4.2 mmol/L (3.5-5.1); Sodium 124 mmol/L (136-145); Troponin I < 0.03 ng/ml (0-0.04)
[2021-11-13] MEDS ORDERED: SODIUM CHLORIDE 0.9% 1000ML 1,000 ML IV ONE (19:36)
--- NOTE | 2021-11-13 19:40 | CT Scan Report ---
CT angio neck with con, CT angio head w con CLINICAL HISTORY: Stroke Like Symptoms TECHNIQUE: CT angiography of the head and neck was performed following intravenous administration of iodinated contrast. Coronal and sagittal MIPS were obtained from the axial data set and were submitte d for review. Automated dose lowering techniques and/or adjustment according to patient size were ut ilized for this examination. All measurements were calculated based on NASCET criteria. Comparison: None available at the time of this dictation. FINDINGS: Small thyroid nodules are seen which do not require follow-up by ACR criteria. CTA Neck: The aortic arch and the origins of the innominate, left subclavian, and left common caroti d artery are not imaged There is no significant atherosclerotic plaque in the aortic arch or the orig ins of the innominate, left common carotid, and left subclavian arteries. The common carotid, exter nal carotid, cervical segments of the internal carotid arteries, and the cervical segments of the royal tebral arteries are patent without hemodynamically significant stenosis. The right vertebral artery i s dominant. CTA Head: The anterior and posterior cerebral circulations are patent. No hemodynamically significan t stenosis, aneurysm, dissection, or arteriovenous malformation is shown. The left vertebral artery t erminates in PICA. The left WEARING APPAREL FOLDER demonstrates origin. IMPRESSION: 1. No occlusion, hemodynamically significant stenosis, aneurysm, dissection, or arteriovenous malfor mation in the major intracranial arteries. 2. No occlusion, hemodynamically significant stenosis, or dissection in the major cervical arteries. Assessment of stenosis of the internal carotid arteries is based on NASCET criteria. ACT 112: Negative or not required by law. Electronically signed by: Todd Burdick M.D. 11/13/2021 7:38 PM
[2021-11-13] MEDS: MAGNESIUM SULFATE / D5W 1 GM/100 ML BAG IV SCH ×2 (20:16→21:25)
--- NOTE | 2021-11-13 20:19 | History & Physical Report ---
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 L LEG SENSORY WEAKNESS, ABNORMALITY Patient's history of chronic left hemispheric subcortical lacunar infarct without known hemiparesis, multiple previous left ankle fractures, seizures, and current hyponatremia, hypomagnesemia noted Work-up as follows: Exam is significant for sensory deficits on the plantar aspect of the left foot, mild weakness with plantar/dorsiflexion, lumbosacral back pain reproducible on exam CT head, CTA of head/neck unremarkable for acute occlusion or stenosis Hyponatremia to 124 noted Etiology of this issue is unclear at present: Differential includes TIA, neurogenic claudication from the spine, peripheral neuropathy (?Tarsal tunnel), focal partial seizure (though not c/w previous sz), less likely diabetes given recent A1c of 6% Consult neurology: Appreciate diagnostic expertise and insight on need for MRI brain (e.g., TIA w/u) +/- nerve conduction study/EMG of left lower extremity Obtain MRI of lumbar spine given focality of exam findings, +TTP on exam Continue neurochecks q4h PT, OT consulted: Appreciate functional assessment and safety assessment (2) Fall: Plan: At baseline, patient uses a walker and denies frequent falls at home; no reported functional neurologic deficits following previous stroke Suspect secondary to the above PT, OT Check x-ray of hips, 1 view (3) Hyponatremia: Plan: On arrival, patient found to have sodium 124, hypochloremia 98, serum osmolality 265, urine osmolality low 238, urine sodium 63, FENa 1.3% Patient appears euvolemic on exam Etiology at this time is unclear : Primarily suspect SIADH vs. poor PO intake. No evidence of hypervolemia, history consistent with polydipsia, GI losses, kidney injury, insulting RX In the interim, initiate salt tab 3 times daily and fluid restriction under 2000 cc/day Promote p.o. intake Monitor urine output Check CBC at midnight, again in a.m. (4) Hypomagnesemia: Plan: On arrival, patient found to have magnesium 1.4 Repleted with 2mg MgSO4 in emergency room Recheck at midnight, again in a.m. (5) Seizure disorder: Plan: No recent reported history of seizures Continue Dilantin, Keppra at home doses Check levels of both medications while here (6) Hypothyroidism: Plan: TSH normal low upon arrival, continue levothyroxine (7) Dyslipidemia: Plan: Continue atorvastatin, aspirin (8) Type 2 diabetes mellitus: Plan: Well-controlled with A1c in April at 6% Hold Metformin while here SSI with ACHS BSG checks (9) History of stroke: Plan: Patient's history of chronic left hemispheric subcortical lacunar infarct > 20 years ago without known hemiparesis noted --does have some word finding and memory difficulties Follows with [facility] neurology Continue atorvastatin, aspirin (10) Respiratory illness: Plan: # POSTNASAL DRIP Primary care note from 11/09 reviewed, which notes that patient has been dealing with postnasal drip for the last 4 weeks as well as ear pain and sinus congestion CT head not demonstrating any acute inflammatory processes within the sinuses, no tenderness on exam today Potentially previously represented an acute bacterial rhinosinusitis; however, given good clinical presentation with this regard today, will hold cefdinir (11) Shoulder pain, left: Plan: Patient reporting left shoulder pain that has been ongoing throughout today, prior to fall; of note, she fell on her right side and denies hitting the shoulder Of note, patient does seem to have history of left shoulder pain, x-ray performed 11/2019 did reveal degenerative changes on the side We will check x-ray again to rule out any acute processes that may require immobilization Patient would likely benefit from PT after discharge Plan: Code: Full code dispo: MS/T ppx: SCDs diet: CC, NaCl t.i.d. 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 Patient is very pleasant and oriented, but difficult to obtain history from. Patient says that she was in her normal health up until about 1430 on day of admission, when she was going to get up out of bed and noticed her L foot felt numb -- and perhaps extended up to her knee. When she went to stand, it felt like her leg was going to give out. As a result of this, she did fall onto her R side. Did not hit her head. The last time she walked prior to this was around noon. 911 was called as a result of these events. Of note, patient does report a history of 2 fractures within the left ankle. She does have osteoporosis. She denies any sort of surgical repair. She is not able to provide much more information about these fractures but says "I've always had trouble with this leg." She denies any prior numbness or tingling. Further, she denies any back pain when asked. Denies any new issues with bowel or bladder. She says the only new medication she has started within the last few days was cefdinir, prescribed by her primary care physician. Otherwise has been taking her medications as instructed without missed doses. Functionally, she does use a cane to get around but denies frequent falls. She reports no change in p.o. intake. She denies drinking water frequently. She denies any nausea, vomiting, diarrhea. She denies any history of alcohol use, recreational drug use, tobacco use. In the emergency department, patient was found to be hemodynamically stable. Per the emergency physician, patient was found to have motor and sensory deficits in the left lower extremity. As a result, stroke alert was called. TPA was not advised by the on-call neurologist. Labs were significant for sodium 124, chloride 93, potassium 4.2, magnesium 1.4, TSH 0.47. CT and CTA of the head/neck was not revealing of any acute process or abnormality. Allergies Allergy/AdvReac Type Severity Reaction Status Date / Time levofloxacin [From Levaquin] Allergy Severe Possible Verified 11/13/21 20:41 seizure peanut Allergy Mild SNEEZE, Verified 11/13/21 20:41 COUGH allopurinol [From Zyloprim] Allergy Unknown Unknown Verified 11/13/21 20:41 lorazepam Allergy Unknown Unknown Verified 11/13/21 20:41 nortriptyline Allergy Unknown Unknown Verified 11/13/21 20:41 Opioids - Morphine Analogues Allergy Unknown Unknown Verified 11/13/21 20:41 Penicillins Allergy Unknown Unknown Verified 11/13/21 20:41 Sulfa (Sulfonamide Allergy Unknown Unknown Verified 11/13/21 20:41 Antibiotics) risedronate sodium AdvReac Intermediate Intolerence Verified 11/13/21 20:41 [facility] Medications Medication Instructions Recorded Confirmed Type naproxen 375 mg tablet 375 mg PO BID PRN 11/30/19 11/13/21 History aspirin 81 mg chewable tablet 81 mg PO QAM 07/04/20 11/13/21 History metformin 500 mg tablet 500 mg PO BID #180 tab 04/24/21 11/13/21 Rx diclofenac sodium 1 % topical gel 2 g TOPICAL QID #100 g 05/02/21 11/13/21 Rx (Voltaren Arthritis Pain) levothyroxine 50 mcg tablet 25 mcg PO DAILY #90 tab 05/08/21 11/13/21 Rx Dilantin Extended 100 mg capsule 100 mg PO .COMPLEX 90 Days #270 06/12/21 11/13/21 Rx (phenytoin sodium extended) cap NS Dilantin Infatabs 50 mg chewable 50 mg PO QAM #90 tab NS 07/26/21 11/13/21 Rx tablet (phenytoin) levetiracetam 750 mg tablet 750 mg PO BID #180 tab 07/26/21 11/13/21 Rx atorvastatin 20 mg tablet 20 mg PO DAILY #90 tab 10/16/21 11/13/21 Rx cefuroxime axetil 500 mg tablet 500 mg PO BID #20 tab 11/09/21 11/13/21 Rx Past Med/Surg History Medical History Acid reflux Dyslipidemia Hiatal hernia History of stroke 20 YRS AGO Hypothyroidism Osteoarthritis Osteoporosis Seizure disorder epilepsy, primary generalized seizure disorder--follows with Dr. 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- taking seizure meds- last seizure beginning of 2019 secondary to low phenytoin level in context of tx of infection- has had no interval seizures- clinically stable- follow up six months Type 2 diabetes mellitus Surgical History (Updated 07/26/21 @ 15:44 by Destiney Parra LPN) H/O: hysterectomy (~1965) History of ankle surgery x2--left d/t fracture History of appendectomy (~1965) History of colonoscopy History of ERCP (07/29/20) History of open reduction and internal fixation (ORIF) procedure left wrist--hardware removed History of right cataract extraction History of surgery on left wrist History of tooth extraction all top removed/most of bottom S/P cholecystectomy (07/29/20) S/P endoscopic carpal tunnel release 06/14/2021 Right wrist Family History Father Hypertension Mother Diabetes Myocardial infarction Brother Diabetes Lung disease Brother Diabetes Brother Diabetes Brother Diabetes Brother Diabetes Other No family history of adverse response to anesthesia Denies family history of Ovarian cancer Prostate cancer Breast cancer Colorectal cancer Social History Smoking Status: Never smoker Second Hand Exposure: No; Do You Dip or Chew Tobacco: No; Tobacco Cessation Education Requested by Patient: No Hx Alcohol Use: No Hx Substance Use: No Preferred Language: Kyrgyz Communication Ability: Effective Visual Impairment: No Limitations Hearing Ability: Hard of Hearing Marble Setter Required: No Beliefs That Will Affect Care: None marital status: / Current Living Situation: Family Current Living Situation Comment: Lives with Son current occupational status: retired 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 How many Children do You have: 6 Other Information That Helps Us Care for You: No Feels Safe at Home: Yes Safety Concerns: Feels Safe At This Time Childhood Exposure to Second-Hand Smoke: Yes Diet Comment: Patient watches serving sizes and counts carefully Dental Care, Regularly: No Physical Activity Frequency: Does not Exercise Seatbelt Use: always Sunscreen Use: Yes (when she goes outside ) Gender Identity: Female Assistive Devices: Cane, Denture - Upper and Glasses Review of Systems Review of Systems: as per HPI Physical Exam Physical Exam: General: Pleasant 85-year-old female relaxed in her hospital bed, no acute distress. HEENT: NCAT. - Eyes - Sclera are white, anicteric, and without injection. PERRL. - Mouth - MMM with no tonsillar edema or exudates. Cardiac: Normal rate and regular rhythm; S1 and S2 present with no murmurs, rubs, or gallops. Pulmonary: Good respiratory effort with symmetric expansion of the chest. No use of accessory muscles. Lungs were clear to auscultation bilaterally with no crackles or wheezes. Abdominal: Normoactive bowel sounds. Abdomen was soft, nondistended, and non- tender to palpation. Neuro: - Cranial Nerves: CN I, IX, and X - not assessed. II - PERRL. III/IV/ - EOMs WNL. No nystagmus. V - jaw opening WNL. VII - Patient is able to smile symmetrically and keep eyes close against resistance. IX - Patient is able to rotate head and shrug shoulders against resistance. XI - Soft palate raises equally and appropriately while saying "ah." XII - patient is able to stick out tongue and deviate from [id number] appropriately. - Motor: UE - Finger, wrist, elbow, and shoulder strength is 5/5 bilaterally. LE -left lower extremity reveals 5 out of 5 strength with hip flexion, knee extension, and 4/5 strength with ankle dorsiflexion/plantarflexion. RLE is 5/5 globally at all joints. - Sensation: UE sensation to light touch is grossly intact bilaterally. Patient has difficulty localizing tingling on LLE, but endorses diffuse abnormality on the plantar aspect of her foot, but nowhere else (though feels along her whole leg while doing so) - Reflexes - patellar 1+ b/l; Achilles 1+ b/l. No clonus. Back: There is mild TTP along the mid-thoracic spine and in the lower lumbar region without appreciable paralumbar spasm. Extremities: Upper and lower extremities are warm and well perfused. Homens negative. Results & Data Results & Data ([facility]) Vital Signs (Past 12 Hours) Vital Signs Temp Pulse Pulse Resp BP BP Pulse Ox 11/13/21 17:15 36.6 C 70 73 17 130/76 130/76 98 Supervising Physician Co-Signing Physician Notes Patient seen and examined, chart reviewed, case discussed with Dr. Vasquez and I agree with the assessment and plan as documented above. In brief, patient is an 85yo female presenting with sensory deficit of left foot/ankle/LE. Has history of left ankle fracture Exam is significant for sensory deficit to light touch and pin prick on plantar aspect of left foot. Mild weakness with plantar and dorsiflexion Remainder of exam is unremarkable, Afebrile HD stable Labs and images reviewed Sensory deficit of left foot dorsal aspect, weakness of flexion and extention - difficult to tell what is chronic vs new findings. Multiple fractures. Back pain reproducible on exam, ?lumbar etiology - MRI ordered, patient deferred exam during the night - will try again in AM Neuro consult appreciated ?neuropathy _Remainder as above Resident Activity Tracking Resident Involvement: Resident Care Provided Care Provided: Adult Hospital Medicine (1) Hypothyroidism Hypothyroidism type: acquired Qualified Code(s): E03.9 - Hypothyroidism, unspecified
--- NOTE | 2021-11-13 20:23 | XRay Report ---
XR chest 1V portable CLINICAL HISTORY: Stroke Like Symptoms TECHNIQUE: Single frontal radiograph of the chest was obtained. Comparison: Prior chest one view 07/28/2020 FINDINGS: No lines and tubes are seen. The cardiomediastinal silhouette is stable. The lungs are clear. No evid ence of pleural effusion or pneumothorax. IMPRESSION: No acute chest disease. ACT 112: Negative or not required by law. Electronically signed by: Todd Burdick M.D. 11/13/2021 8:21 PM
[2021-11-13 20:51] LABS: Appearance Urine Clear (Clear); Bilirubin Urine Negative (Negative); Blood Urine Negative (Negative); Color Urine Yellow; Glucose Urine UA Negative (Negative); Ketones Urine Negative (Negative); Leukocyte Esterase Urine Negative (Negative); Nitrite Urine Negative (Negative); Protein Urine Negative (Negative); Specific Gravity Urine 1.014 (1.000-1.030); Urobilinogen Urine Negative (Negative)
[2021-11-13 21:17] LABS: Amphetamines+Metham, Urine Neg (Neg); Barbiturates, Urine Neg (Neg); Benzodiazepine, Urine Neg (Neg); Cocaine, Urine Neg (Neg); MDMA (Ecstacy), Urine Neg (Neg); Methadone, Urine Neg (Neg); Opiate, Urine Neg (Neg); Phencyclidine, Urine Neg (Neg)
[2021-11-13] MEDS: ACETAMINOPHEN 325 MG TAB PO PRN (21:25)
[2021-11-13 21:33] LABS: Creatinine Urine Random 20.2 mg/dl
[2021-11-13] MEDS ORDERED: GLUCOSE 40% GEL 15 GM TUBE PO PRN (22:20)
[2021-11-13] MEDS ORDERED: DEXTROSE 50% 50 ML SYRINGE IV PRN (22:20)
[2021-11-13] MEDS ORDERED: CARBOHYDRATES FOR HYPOGLYCEMIA PO PRN (22:20)
[2021-11-13] MEDS ORDERED: NAPROXEN 375 MG TAB PO PRN (22:20)
[2021-11-13] MEDS ORDERED: GLUCOSE 10 TABS/TUBE PO PRN (22:20)
[2021-11-13] MEDS ORDERED: cefUROXime axetil 500 MG TAB PO SCH (22:20)
[2021-11-13] MEDS ORDERED: GLUCAGON FOR INJ 1 MG VIAL SQ PRN (22:20)
[2021-11-13] MEDS: DICLOFENAC SOD 1% GEL 100 GM TUBE EXT SCH (23:26)
[2021-11-13] MEDS: levETIRAcetam 250 MG TAB PO SCH (23:27)
[2021-11-13] MEDS: PHENYTOIN SODIUM ER 100 MG CAP PO SCH (23:29)
[2021-11-13] MEDS ORDERED: hydrOXYzine HCl 10 MG TAB PO PRN (23:41)
[2021-11-14 00:58] LABS: BUN Creatinine Ratio 14.3 (10-20); Calcium 8.6 mg/dl (8.5-10.1); Est GFR (African American) 104.4 ml/min; Est GFR (Non-African American) 90.1 ml/min
--- NOTE | 2021-11-14 01:26 | Billing Data ---
Date of Service November 13, 2021 Coding Level of Care Code 65737 Initial Inpt Care Lvl 3
[2021-11-14] MEDS: ACETAMINOPHEN 325 MG TAB PO PRN ×3 (03:47→21:43)
[2021-11-14] MEDS: LEVOTHYROXINE SODIUM 25 MCG TABLET PO SCH (05:36)
[2021-11-14 07:14] LABS: Basophils # (auto) 0.02 K/uL (0-0.2); Basophils % (auto) 0.3 %; Eosinophils # (auto) 0.23 K/uL (0-0.5); Eosinophils % (auto) 3.2 %; Hematocrit (blood only) 34.5 % (37-47); Hemoglobin 11.5 g/dL (12.0-16.0); Immature Granulocytes # (auto) 0.01 K/uL (0.00-0.02); Immature Granulocytes % (auto) 0.1 %; Lymphocytes # (auto) 1.95 K/uL (1.2-3.4); Lymphocytes % (auto) 26.8 %; Mean Corpuscular Hemoglobin 31.8 pg (25-34); Mean Corpuscular Hgb Conc 33.3 g/dL (32-36); Mean Corpuscular Volume 95.3 fL (80-100); Mean Platelet Volume 9.5 fL (7.4-10.4); Monocytes # (auto) 0.86 K/uL (0.11-0.59); Monocytes % (auto) 11.8 %; Neutrophils # (auto) 4.21 K/uL (1.4-6.5); Neutrophils % (auto) 57.8 %; Platelet Count 233 K/uL (130-400); RDW Coefficient of Variation 13.3 % (11.5-14.5); RDW Standard Deviation 46.7 fL (36.4-46.3); Red Blood Count 3.62 M/uL (4.2-5.4); White Blood Count 7.28 K/uL (4.8-10.8)
[2021-11-14 07:52] LABS: Albumin Globulin Ratio 1.5 (0.9-2); Albumin Level 3.8 gm/dl (3.4-5.0); Bilirubin,Total 0.3 mg/dl (0.2-1.0); Calcium 8.5 mg/dl (8.5-10.1); Creatinine Clr Calc Pharmacy 78.3 ml/min; Est GFR (African American) 103.7 ml/min; Est GFR (Non-African American) 89.5 ml/min; Globulin 2.5 gm/dl (2.5-4.0); Magnesium 1.8 mg/dl (1.7-2.4); Potassium 4.1 mmol/L (3.5-5.1); Total Protein 6.3 gm/dl (6.0-8.3)
--- NOTE | 2021-11-14 07:56 | XRay Report ---
SINGLE VIEW PELVIS; 2 VIEWS LEFT HIP; 2 VIEWS RIGHT HIP CLINICAL HISTORY: Fall. FINDINGS: An AP view of the pelvis with AP and frog-leg views of the right and left hip are correlate d with left hip radiographs dated 03/01/[address] dated 07/28/2020. The skeletal structures a re osteopenic. There is no radiographic evidence of acute fracture involving the hips or bony pelvis. Mild arthritic change and joint space narrowing is seen in the hips. Degenerative sclerosis is noted in the sacroiliac joints and pubic symphysis. Enthesophytes arise from the greater trochanters of th e proximal femora and the anterior superior iliac spines. Lumbosacral spondylosis is partially visual ized. The overlying soft tissues are within normal limits. Excreted IV contrast fills the bladder. Th ere is no evidence of bowel obstruction. Atherosclerotic calcification is noted in the femoral arteri es. IMPRESSION: No acute bony abnormality is identified. Electronically signed by: Connor Wright M.D. 11/14/2021 7:55 AM
--- NOTE | 2021-11-14 07:58 | XRay Report ---
LEFT SHOULDER 3 VIEWS CLINICAL HISTORY: Fall with left shoulder pain. FINDINGS: 3 views of the left shoulder are compared to study dated 12/02/2019. The skeletal structures are osteopenic. There is no radiographic evidence of left shoulder fracture or dislocation. Producti ve degenerative change is noted at the acromioclavicular joint. Moderate osteophytic arthritic change is seen at the glenohumeral joint. The overlying soft tissues are within normal limits. The left leonardo g parenchyma is clear as visualized. The heart is enlarged noting atherosclerotic calcification of th e thoracic aorta. IMPRESSION: Osteopenia and degenerative change as above with no acute bony abnormality identified. Electronically signed by: Connor Wright M.D. 11/14/2021 7:56 AM
[2021-11-14] MEDS: levETIRAcetam 250 MG TAB PO SCH ×2 (08:16→20:32)
[2021-11-14] MEDS: PHENYTOIN 50 MG CHEW PO SCH (08:18)
[2021-11-14] MEDS: PHENYTOIN SODIUM ER 100 MG CAP PO SCH ×2 (08:18→20:32)
[2021-11-14] MEDS: SODIUM CHLORIDE 1 GM TABLET PO SCH ×3 (08:19→20:32)
[2021-11-14] MEDS: ATORVASTATIN 20 MG TAB PO SCH (08:19)
[2021-11-14] MEDS: ASPIRIN 81 MG ECTAB PO SCH (08:19)
[2021-11-14] MEDS: INSULIN ASPART PER UNIT SC SCH ×4 (08:24→20:58)
[2021-11-14] MEDS: DICLOFENAC SOD 1% GEL 100 GM TUBE EXT SCH ×4 (08:24→20:33)
--- NOTE | 2021-11-14 09:15 | Neurology Consultation ---
Date of Consultation November 14, 2021 Assessment & Plan (1) Left leg weakness: (2) Abnormal sensation of lower extremity: (3) Left lumbar radiculopathy: 85-year-old female with numbness and weakness affecting the left lower extremity corresponding to an L5-S1 dermatome. She noted her symptoms yesterday after getting up from a chair, during which time her left leg gave out from under her. Although I suspect a lumbar radiculopathy, she does not have significant sciatica or low back pain. Of course, a right YAZ territory infarct may not be completely excluded. A small pontine infarct could be considered as well. She does have a remote history of stroke and evidence of chronic microv ascular ischemic disease on CT of the head. CT angiography of the head and neck unremarkable. Stroke risk factors for this patient would include diabetes mellitus and dyslipidemia. She takes daily low-dose aspirin and atorvastatin as an outpatient, will continue with these medications. I agree with brain MRI as ordered although patient does have some reluctance to proceed with this test. If unable to tolerate brain MRI, would consider obtaining a follow-up noncontrast CT of the head to further exclude an evolving infarct. I would also suggest obtaining either an MRI or CT of the lumbar spine to evaluate suspected lumbar radiculopathy, she likely has an element of lumbar spinal stenosis. Would also recommend outpatient EMG/nerve conduction study of the left lower limb. Evaluation with PT/OT. Patient's seizure disorder has been stable, she may continue with Dilantin and Keppra at the current dosages. History of Present Illness Reason for Consultation: Concern for stroke, left lower extremity weakness sensory loss Requesting Physician: Sandip Vasquez MD Attending Physician: Katharina Mock MD History of Present Illness The patient is an 85-year-old female with a chief complaint of left lower extremity numbness and weakness that began acutely yesterday afternoon, about 3 hours prior to her assessment in the emergency department. She noticed her symp toms upon getting up from a chair, her left leg gave out from under her. She did have a fall without associated injury. She complains of numbness affecting the sole of the left foot, and a bit of numbness along the dorsum and lateral aspect of the foot and lower leg as well. She denies significant low back or spinal pain. She indicates that her symptoms are modestly improved this morning, compared with yesterday. She does complain of some chronic left shoulder discomfort but denies significant numbness or weakness affecting the left upper limb. She denies experiencing any associated numbness or weakness affecting the face, no associated dysarthria or dysphagia. She does complain of mild headache, no vision disturbance. This patient is known to me, I last evaluated her in neurology clinic July 26, 2021. 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 Patient has primary generalized epilepsy and has been taking Dilantin and Keppra, last seizure occurred in early 2019 related to a low phenytoin level while taking an antibiotic. History is also notable for chronic multifactorial gait dysfunction, utilizes a cane or wheeled walker depending on circumstances. An EEG completed in 2015 had revealed generalized spike wave abnormality. History also notable for severe right carpal tunnel syndrome, has been following with orthopedics for this issue. Patient was neurologically stable at the time of her last assessment with me this past July, I did not make any changes in her anticonvulsant regimen at that time. Patient was admitted to [facility] with relatively acute onset left lower extremity weakness and numbness, with concern for possible stroke as above. CT of the head and CT angiography of the head and neck were generally unremarkable. Patient is rather adamant that she will not tolerate brain MRI. PT and OT have been consulted. Patient also found to have hyponatremia, medical evaluation/monitoring ongoing. Allergies Allergy/AdvReac Type Severity Reaction Status Date / Time levofloxacin [From Levaquin] Allergy Severe Possible Verified 11/13/21 20:41 seizure peanut Allergy Mild SNEEZE, Verified 11/13/21 20:41 COUGH allopurinol [From Zyloprim] Allergy Unknown Unknown Verified 11/13/21 20:41 lorazepam Allergy Unknown Unknown Verified 11/13/21 20:41 nortriptyline Allergy Unknown Unknown Verified 11/13/21 20:41 Opioids - Morphine Analogues Allergy Unknown Unknown Verified 11/13/21 20:41 Penicillins Allergy Unknown Unknown Verified 11/13/21 20:41 Sulfa (Sulfonamide Allergy Unknown Unknown Verified 11/13/21 20:41 Antibiotics) risedronate sodium AdvReac Intermediate Intolerence Verified 11/13/21 20:41 [From Actonel] Home Medications Medication Instructions Recorded Confirmed Type naproxen 375 mg tablet 375 mg PO BID PRN 11/30/19 11/13/21 History aspirin 81 mg chewable tablet 81 mg PO QAM 07/04/20 11/13/21 History metformin 500 mg tablet 500 mg PO BID #180 tab 04/24/21 11/13/21 Rx diclofenac sodium 1 % topical gel 2 g TOPICAL QID #100 g 05/02/21 11/13/21 Rx (Voltaren Arthritis Pain) levothyroxine 50 mcg tablet 25 mcg PO DAILY #90 tab 05/08/21 11/13/21 Rx Dilantin Extended 100 mg capsule 100 mg PO .COMPLEX 90 Days #270 06/12/21 11/13/21 Rx (phenytoin sodium extended) cap NS Dilantin Infatabs 50 mg chewable 50 mg PO QAM #90 tab NS 07/26/21 11/13/21 Rx tablet (phenytoin) levetiracetam 750 mg tablet 750 mg PO BID #180 tab 07/26/21 11/13/21 Rx atorvastatin 20 mg tablet 20 mg PO DAILY #90 tab 10/16/21 11/13/21 Rx cefuroxime axetil 500 mg tablet 500 mg PO BID #20 tab 11/09/21 11/13/21 Rx Patient History Medical History Acid reflux Dyslipidemia Hiatal hernia History of stroke 20 YRS AGO Hypothyroidism Osteoarthritis Osteoporosis Seizure disorder epilepsy, primary generalized seizure disorder--follows with Dr. 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- taking seizure meds- last seizure beginning of 2019 secondary to low phenytoin level in context of tx of infection- has had no interval seizures- clinically stable- follow up six months Type 2 diabetes mellitus Surgical History (Updated 07/26/21 @ 15:44 by Destiney Parra LPN) H/O: hysterectomy (~1965) History of ankle surgery x2--left d/t fracture History of appendectomy (~1965) History of colonoscopy History of ERCP (07/29/20) History of open reduction and internal fixation (ORIF) procedure left wrist--hardware removed History of right cataract extraction History of surgery on left wrist History of tooth extraction all top removed/most of bottom S/P cholecystectomy (07/29/20) S/P endoscopic carpal tunnel release 06/14/2021 Right wrist Family History Father Hypertension Mother Diabetes Myocardial infarction Brother Diabetes Lung disease Brother Diabetes Brother Diabetes Brother Diabetes Brother Diabetes Other No family history of adverse response to anesthesia Denies family history of Ovarian cancer Prostate cancer Breast cancer Colorectal cancer Social History Smoking Status: Never smoker Second Hand Exposure: No; Do You Dip or Chew Tobacco: No; Tobacco Cessation Education Requested by Patient: No Hx Alcohol Use: No Hx Substance Use: No Preferred Language: Khmer Communication Ability: Effective Visual Impairment: No Limitations Hearing Ability: Hard of Hearing 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 How many Children do You have: 6 Other Information That Helps Us Care for You: No Feels Safe at Home: Yes Safety Concerns: Feels Safe At This Time Childhood Exposure to Second-Hand Smoke: Yes Diet Comment: Patient watches serving sizes and counts carefully Dental Care, Regularly: No Physical Activity Frequency: Does not Exercise Seatbelt Use: always Sunscreen Use: Yes (when she goes outside ) Gender Identity: Female Assistive Devices: Cane, Denture - Upper and Glasses Review of Systems Constitutional: no fever and no chills Eyes: no blind spots and no diplopia Ear, Nose, Mouth, Throat: no ear pain and no hearing loss Respiratory: no cough and no dyspnea Cardiovascular: no chest pain and no palpitations Gastrointestinal: no constipation and no diarrhea/loose stools Genitourinary: no urinary urgency and no urinary incontinence Musculoskeletal: + muscle weakness; no back pain, no neck pain and no myalgia Integumentary: no rash and no lesions Neurologic: as per Subjective / HPI, + gait abnormality, + unsteadiness, + localized weakness, + loss of sensation and + headache(s); no memory loss Psychiatric: no behavioral changes, no depression, no abnormal sleep pattern and no anxiety Hematologic / Lymphatic: no easy bruising and no lymphadenopathy Exam (Neuro) Constitutional: well developed and well nourished; no acute distress Eyes: normal visual pond by confrontation, PERRL, normal accommodation and EOM intact bilaterally; no fundoscopic abnormality, no nystagmus and no papilledema Cardiovascular: Vessels: normal carotid upstroke; no carotid bruit Neurologic: Oriented to:: Person, Place and Time Memory: Short Term Intact and Remote Intact Attention: Span Intact and Concentration Intact Language: Naming Objects and Repeating Phrases Speech Fluency: negative Dysarthria Speech Aphasia: negative Aphasia Fund of Knowledge: Current Events, Past History and Vocabulary Cranial Nerves: Normal II (Visual pond full to confrontation, visual acuity normal), III, IV, (Pupils equal round reactive to light and accommodation, eye movements normal), V (Facial sensation intact), VIII (Hearing intact), IX, X (Palate elevates to midline), XI (Shoulder shrug intact) and XII (Tongue protrudes to midline); Abnorm VII (There is a mild right lower facial droop.) Motor Strength: Normal Upper Extremities; negative Normal Lower Extremities (Mild weakness for the distal left lower extremity appreciated with dorsiflexion of the left great toe and ankle joint.) or Pronator Drift Motor Tone: Normal Lower Extremities and Normal Upper Extremities Muscle Bulk/Involuntary Movements: No Involuntary Movements; negative Muscle Atrophy Sensation: Vibration Intact and Proprioception Intact; negative Light Touch Intact or Pain/Temperature Intact Coordination: negative Dysdiadochokinesia, Finger-Nose Abnormal or Heel-Pardo Abnormal Deep Tendon Reflexes: Rt Triceps: 2+, Lt Triceps: 2+, Rt Biceps: 2+, Lt Biceps: 2+, Rt Brachioradialis: 2+, Lt Brachioradialis: 2+, Rt Patellar: 2+, Lt Patellar: 2+, Rt Ankle: 1+ and Lt Ankle: 1+ Special Tests: negative Babinski Present Details: Gait cannot be safely tested in the context of patient's current neurological status. Patient does have a dermatomal sensory loss to L5 and S1 for the left lower limb. Relative sensory loss to light touch along the lateral aspect of the left lower limb extending to the dorsum of the left foot. More significant sensory loss along the plantar aspect of the left foot. Results & Data ([facility]) Vital Signs (Past 12 Hours) Vital Signs Temp Pulse Pulse Pulse Resp BP BP 11/14/21 08:00 36.4 C L 63 16 131/65 11/14/21 07:07 65 11/14/21 03:01 36.3 C L 70 18 119/53 L 11/13/21 22:50 76 11/13/21 22:25 74 17 11/13/21 22:20 36.5 C 81 18 144/77 H 11/13/21 21:00 75 17 Pulse Ox 11/14/21 08:00 94 11/14/21 07:07 11/14/21 03:01 96 11/13/21 22:50 11/13/21 22:25 97 11/13/21 22:20 92 11/13/21 21:00 97 Laboratory Results WBC 7.28, hemoglobin 11.5, hematocrit 34.5, MCV 95.3, platelet count 233, sodium 128, potassium 4.1, BUN 7, creatinine 0.50, glucose 96, calcium 8.5, magnesium 1.8, AST 17, ALT 13, troponin less than 0.03, TSH 0.468 urine osmolality 238. Diagnostic Findings CT of the head negative for hemorrhage or acute process, there are changes suggestive of chronic microvascular ischemic disease. I reviewed the images as well as the radiologist interpretation of this test. CT angiography of the head and neck unremarkable. No occlusion, dissection, aneurysm or stenosis. I reviewed these images as well. Electrocardiogram reveals a normal sinus rhythm, 73 bpm. PG Care Time/CCT Total # of Minutes Spent Total Time Spent with Patient: Total time spent is greater than 50% in coordination of care (as documented) at patient's floor/unit and/or counseling patient: Coding Level of Care Code 77197 Initial Inpt Care Lvl 3 Diagnoses Left leg weakness R29.898 Abnormal sensation of lower extremity R20.9 Left lumbar radiculopathy M54.16
--- NOTE | 2021-11-14 13:55 | Magnetic Resonance Report ---
MR lumbar spine wo con CLINICAL HISTORY: focal LLE weakness, ?neurogenic claudication TECHNIQUE: Multiplanar sequences through the lumbar spine were obtained, without intravenous contrast . Comparison: None available at the time of this dictation. FINDINGS: This exam was limited by patient intolerance. No axial series were obtained. Grade 1 anterolisthesis of L4-L5 is seen. Degenerative changes are noted in the discs and vertebral b odies. L1-L2: There is mild bilateral neural foraminal stenosis. L2-L3: There is moderate posterior disc bulge and ligamentum flavum and facet arthropathy. There is r esulting moderate neuroforaminal stenosis with an AP diameter of 8 mm. Moderate bilateral neural fora carl stenosis is seen. L3-L4: Posterior disc bulge results in mild canal stenosis and moderate bilateral neuroforaminal sten osis. L4-L5: Mild bilateral neuroforaminal stenosis is seen. L5-S1: Mild bilateral neural foraminal stenosis is seen. The spinal ligaments are intact, without evidence of disruption or abnormal signal intensity. The spi nal cord is normal in signal intensity and there is no evidence of cord contusion. There is no eviden ce of an extradural, intradural, extramedullary or intramedullary lesion. Visualized soft tissues are normal. IMPRESSION: Highly limited exam due to lack of axial series. Up to moderate canal stenosis at L2-L3 with an AP di ameter of 8 mm. Moderate bilateral neural foraminal stenosis is seen. ACT 112: Negative or not required by law. Electronically signed by: Todd Burdick M.D. 11/14/2021 1:54 PM
--- NOTE | 2021-11-14 15:33 | Hospitalist Progress Note ---
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 L LEG SENSORY WEAKNESS, ABNORMALITY Patient's history of chronic left hemispheric subcortical lacunar infarct without known hemiparesis, multiple previous left ankle fractures, seizures, and current hyponatremia, hypomagnesemia noted Exam is significant for sensory deficits to light touch in the left leg and foot but strength is equal bilaterally in the lower extremities CT head, CTA of head/neck unremarkable for acute occlusion or stenosis Hyponatremia to 124 noted and could be contributing -Could be lumbar radiculopathy although MRI lumbar spine fairly unremarkable except for moderate canal stenosis at L2-L3 with moderate bilateral neural foraminal stenosis which is not consistent with her symptoms -Could be peroneal nerve compression? -This is not ischemic nerve injury as she has good pedal pulses bilaterally Appreciate neurology consultation-recommends MRI lumbar spine, MRI brain if possible versus repeat CT head noncontrast to look for stroke Also recommends EMG/NCS as an outpatient CT head noncontrast ordered on 11/14 as she refused to have MRI due to anxiety-CT head is negative for stroke PT, OT consulted-recommend rehab (2) Fall: Plan: At baseline, patient uses a walker and denies frequent falls at home; no reported functional neurologic deficits following previous stroke Suspect secondary to the left leg sensory deficits X-rays of the hips, pelvis, left shoulder, chest all negative PT, OT recommends rehab as above (3) Hyponatremia: Plan: On arrival, patient found to have sodium 124, hypochloremia 98, serum osmolality 265, urine osmolality 238, urine sodium 63 Patient appears euvolemic on exam 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 cortisol are normal SIADH could be from her naproxen, but could also be secondary to recent pain she has been having from a strain in her left neck and shoulder. There are no other offending medications. Chest x-ray negative for nodules. Brain imaging negative. Sodium is improved today to 128 after initiating salt tablets and fluid restriction, however I have lowered her fluid restriction down to 1200 mL Follow BMP in the morning (4) Hypomagnesemia: Plan: Low on arrival and replaced Now resolved (5) Seizure disorder: Plan: No recent reported history of seizures Continue Dilantin, Keppra at home doses Check levels of both medications while here (6) Hypothyroidism: Plan: TSH normal, continue levothyroxine (7) Dyslipidemia: Plan: Continue atorvastatin, aspirin (8) Type 2 diabetes mellitus: Plan: Well-controlled with A1c in April at 6% Hold Metformin while here SSI with [facility] checks (9) History of stroke: Plan: Patient's history of chronic left hemispheric subcortical lacunar infarct > 20 years ago without known hemiparesis noted --does have some word finding and memory difficulties Follows with [facility] [place] neurology Continue atorvastatin, aspirin (10) Respiratory illness: Plan: Primary care note from 11/09 reviewed, which notes that patient has been dealing with postnasal drip for the last 4 weeks as well as ear pain and sinus congestion but patient describes this more as the "roaring sensation" in her head and ear This is now completely resolved and may be was related to her hyponatremia? CT head not demonstrating any acute inflammatory processes within the sinuses None of her symptoms improved after taking cefuroxime for 6 days Covid-19 test is negative (11) Shoulder pain, left: Plan: Patient reporting left shoulder pain that has been ongoing throughout today, prior to fall; of note, she fell on her right side and denies hitting the shoulder Of note, patient does seem to have history of left shoulder pain, x-ray performed 11/2019 did reveal degenerative changes on the side X-ray here is negative Plan: DVT prophylaxis-SCDs Disposition-continued stay, but could discharge to rehab hopefully tomorrow if sodium continues to improve Admission and Anticipated Discharge Date Admission Date: November 13, 2021 Subjective Patient reports still has some numbness in the left leg and foot but was able to ambulate with physical therapy today. She was extremely anxious during the MRI for the lumbar spine and was not able to complete it. She does not think she can tolerate an MRI of the brain. She denies chest pains or shortness of breath, no abdominal pains or nausea. She had been having headaches and a "roaring sound" in her ear and head for the last several weeks which now seems to be completely resolved. Telemetry with normal sinus rhythm with rates in the 60s to 80s. New medications she has taken recently were the cefuroxime for a possible ear and sinus infection, as well as naproxen for the last few weeks for some left- sided neck pain. She reports that she has been eating and drinking like normal. Review of Systems Review of Systems: All systems reviewed & are unremarkable except as noted in HPI & below Physical Exam Constitutional: WD/WN, vitals as above Eyes: PERRL, conjunctivae normal, anicteric sclerae EOM intact bilaterally; no anisocoria and no nystagmus ENMT: external ear and nose normal, oropharynx normal Neck: trachea midline, no thyromegaly Respiratory: normal respiratory effort, lungs clear to auscultation Cardiovascular: RRR, no murmur, no edema Vessels: dorsalis pedis pulses present Chest (Breasts): Chest: normal inspection of chest Gastrointestinal (Abdomen): normal bowel sounds, soft, nontender, no hepatosplenomegaly Musculoskeletal: Extremities: extremities normal to inspection; no cyanosis and no clubbing Skin: no rashes, warm and dry Neurologic: CN's II-XI intact bilaterally, moves all extremities and awake; no focal motor deficits Motor/Sensory: + sensory deficit (Diminished light touch in left leg and foot) Psychiatric: A+Ox3, euthymic affect Lymphatic: no lymphedema Results & Data Results & Data ([facility]) Vital Signs (Past 12 Hours) Vital Signs Temp Pulse Pulse Resp BP Pulse Ox 11/14/21 15:03 72 11/14/21 11:49 36.4 C L 66 20 112/66 94 11/14/21 08:00 36.4 C L 63 16 131/65 94 11/14/21 07:07 65 Laboratory Results 11/14/21 11/14/21 11/14/21 Range/Units 09:51 08:12 06:32 WBC (4.8-10.8) K/uL RBC (4.2-5.4) M/uL Hgb (12.0-16.0) g/dL Hct (37-47) % MCV (80-100) fL MCH (25-34) pg MCHC (32-36) g/dL RDW Std Deviation (36.4-46.3) fL RDW Coeff of Ana (11.5-14.5) % Plt Count (130-400) K/uL MPV (7.4-10.4) fL Immature Gran % (Auto) % Neut % (Auto) % Lymph % (Auto) % Frederick % (Auto) % Eos % (Auto) % Baso % (Auto) % Neut # (Auto) (1.4-6.5) K/uL Lymph # (Auto) (1.2-3.4) K/uL Frederick # (Auto) (0.11-0.59) K/uL Eos # (Auto) (0-0.5) K/uL Baso # (Auto) (0-0.2) K/uL Immature Gran # (Auto) (0.00-0.02) K/uL Sodium 128 L (136-145) mmol/L Potassium 4.1 (3.5-5.1) mmol/L Chloride 96 L (98-107) mmol/L Carbon Dioxide 27 (21-32) mmol/L Anion Gap 5 (3-11) BUN 7 (6-23) mg/dl Creatinine 0.50 L (0.6-1.2) mg/dl Est Cr Clr Drug Dosing 78.3 ml/min Est GFR ( Amer) 103.7 ml/min Est GFR (Non-Af Amer) 89.5 ml/min BUN/Creatinine Ratio 14.0 (10-20) Glucose 96 (70-99(Fasting)) mg/dl POC Glucose 112 H (70-99) mg/dl Osmolality (280-300) mOsm/kg Calcium 8.5 (8.5-10.1) mg/dl Magnesium 1.8 (1.7-2.4) mg/dl Total Bilirubin 0.3 (0.2-1.0) mg/dl AST 17 (13-39) U/L ALT 13 (7-52) U/L Alkaline Phosphatase 87 (34-104) U/L Total Protein 6.3 (6.0-8.3) gm/dl Albumin 3.8 (3.4-5.0) gm/dl Globulin 2.5 (2.5-4.0) gm/dl Albumin/Globulin Ratio 1.5 (0.9-2) Random Cortisol 14.43 mcg/dl Urine Color Urine Appearance (Clear) Urine pH (4.5-7.5) Ur Specific [employer] (1.000-1.030) Urine Protein (Negative) Urine Glucose (UA) (Negative) Urine Ketones (Negative) Urine Blood (Negative) Urine Nitrite (Negative) Urine Bilirubin (Negative) Urine Urobilinogen (Negative) Ur Leukocyte Esterase (Negative) Urine Osmolality (500-800) mOsm/kg Ur Random Creatinine mg/dl Ur Random Sodium mmol/L Urine Opiates Screen (Neg) Ur Methadone, Qual (Neg) Urine Barbiturates (Neg) Phenytoin (10-20) mcg/ml Ur Phencyclidine (PCP) (Neg) U Amphetamin/Meth Scrn (Neg) MDMA (Ecstasy) Screen (Neg) U Benzodiazepines Scrn (Neg) Ur Cocaine Metabolite (Neg) U Marijuana (THC) Screen (Neg) SARS-CoV-2, RNA, NAAT (NEGATIVE) 11/14/21 11/14/21 11/14/21 Range/Units 06:32 00:12 00:12 WBC 7.28 (4.8-10.8) K/uL RBC 3.62 L (4.2-5.4) M/uL Hgb 11.5 L (12.0-16.0) g/dL Hct 34.5 L (37-47) % MCV 95.3 (80-100) fL MCH 31.8 (25-34) pg MCHC 33.3 (32-36) g/dL RDW Std Deviation 46.7 H (36.4-46.3) fL RDW Coeff of Ana 13.3 (11.5-14.5) % Plt Count 233 (130-400) K/uL MPV 9.5 (7.4-10.4) fL Immature Gran % (Auto) 0.1 % Neut % (Auto) 57.8 % Lymph % (Auto) 26.8 % Frederick % (Auto) 11.8 % Eos % (Auto) 3.2 % Baso % (Auto) 0.3 % Neut # (Auto) 4.21 (1.4-6.5) K/uL Lymph # (Auto) 1.95 (1.2-3.4) K/uL Frederick # (Auto) 0.86 H (0.11-0.59) K/uL Eos # (Auto) 0.23 (0-0.5) K/uL Baso # (Auto) 0.02 (0-0.2) K/uL Immature Gran # (Auto) 0.01 (0.00-0.02) K/uL Sodium 126 L (136-145) mmol/L Potassium 4.0 (3.5-5.1) mmol/L Chloride 95 L (98-107) mmol/L Carbon Dioxide 25 (21-32) mmol/L Anion Gap 6 (3-11) BUN 7 (6-23) mg/dl Creatinine 0.49 L (0.6-1.2) mg/dl Est Cr Clr Drug Dosing 85.0 ml/min Est GFR ( Amer) 104.4 ml/min Est GFR (Non-Af Amer) 90.1 ml/min BUN/Creatinine Ratio 14.3 (10-20) Glucose 106 H (70-99(Fasting)) mg/dl POC Glucose (70-99) mg/dl Osmolality (280-300) mOsm/kg Calcium 8.6 (8.5-10.1) mg/dl Magnesium 1.9 (1.7-2.4) mg/dl Total Bilirubin (0.2-1.0) mg/dl AST (13-39) U/L ALT (7-52) U/L Alkaline Phosphatase (34-104) U/L Total Protein (6.0-8.3) gm/dl Albumin (3.4-5.0) gm/dl Globulin (2.5-4.0) gm/dl Albumin/Globulin Ratio (0.9-2) Random Cortisol mcg/dl Urine Color Urine Appearance (Clear) Urine pH (4.5-7.5) Ur Specific [employer] (1.000-1.030) Urine Protein (Negative) Urine Glucose (UA) (Negative) Urine Ketones (Negative) Urine Blood (Negative) Urine Nitrite (Negative) Urine Bilirubin (Negative) Urine Urobilinogen (Negative) Ur Leukocyte Esterase (Negative) Urine Osmolality (500-800) mOsm/kg Ur Random Creatinine mg/dl Ur Random Sodium mmol/L Urine Opiates Screen (Neg) Ur Methadone, Qual (Neg) Urine Barbiturates (Neg) Phenytoin (10-20) mcg/ml Ur Phencyclidine (PCP) (Neg) U Amphetamin/Meth Scrn (Neg) MDMA (Ecstasy) Screen (Neg) U Benzodiazepines Scrn (Neg) Ur Cocaine Metabolite (Neg) U Marijuana (THC) Screen (Neg) SARS-CoV-2, RNA, NAAT (NEGATIVE) 11/13/21 11/13/21 11/13/21 Range/Units 19:10 19:10 19:10 WBC (4.8-10.8) K/uL RBC (4.2-5.4) M/uL Hgb (12.0-16.0) g/dL Hct (37-47) % MCV (80-100) fL MCH (25-34) pg MCHC (32-36) g/dL RDW Std Deviation (36.4-46.3) fL RDW Coeff of Ana (11.5-14.5) % Plt Count (130-400) K/uL MPV (7.4-10.4) fL Immature Gran % (Auto) % Neut % (Auto) % Lymph % (Auto) % Frederick % (Auto) % Eos % (Auto) % Baso % (Auto) % Neut # (Auto) (1.4-6.5) K/uL Lymph # (Auto) (1.2-3.4) K/uL Frederick # (Auto) (0.11-0.59) K/uL Eos # (Auto) (0-0.5) K/uL Baso # (Auto) (0-0.2) K/uL Immature Gran # (Auto) (0.00-0.02) K/uL Sodium (136-145) mmol/L Potassium (3.5-5.1) mmol/L Chloride (98-107) mmol/L Carbon Dioxide (21-32) mmol/L Anion Gap (3-11) BUN (6-23) mg/dl Creatinine (0.6-1.2) mg/dl Est Cr Clr Drug Dosing ml/min Est GFR ( Amer) ml/min Est GFR (Non-Af Amer) ml/min BUN/Creatinine Ratio (10-20) Glucose (70-99(Fasting)) mg/dl POC Glucose (70-99) mg/dl Osmolality (280-300) mOsm/kg Calcium (8.5-10.1) mg/dl Magnesium (1.7-2.4) mg/dl Total Bilirubin (0.2-1.0) mg/dl AST (13-39) U/L ALT (7-52) U/L Alkaline Phosphatase (34-104) U/L Total Protein (6.0-8.3) gm/dl Albumin (3.4-5.0) gm/dl Globulin (2.5-4.0) gm/dl Albumin/Globulin Ratio (0.9-2) Random Cortisol mcg/dl Urine Color Urine Appearance (Clear) Urine pH (4.5-7.5) Ur Specific [employer] (1.000-1.030) Urine Protein (Negative) Urine Glucose (UA) (Negative) Urine Ketones (Negative) Urine Blood (Negative) Urine Nitrite (Negative) Urine Bilirubin (Negative) Urine Urobilinogen (Negative) Ur Leukocyte Esterase (Negative) Urine Osmolality 238 L (500-800) mOsm/kg Ur Random Creatinine 20.2 mg/dl Ur Random Sodium 63 mmol/L Urine Opiates Screen Neg (Neg) Ur Methadone, Qual Neg (Neg) Urine Barbiturates Neg (Neg) Phenytoin (10-20) mcg/ml Ur Phencyclidine (PCP) Neg (Neg) U Amphetamin/Meth Scrn Neg (Neg) MDMA (Ecstasy) Screen Neg (Neg) U Benzodiazepines Scrn Neg (Neg) Ur Cocaine Metabolite Neg (Neg) U Marijuana (THC) Screen Neg (Neg) SARS-CoV-2, RNA, NAAT (NEGATIVE) 11/13/21 11/13/21 11/13/21 Range/Units 19:10 19:04 19:04 WBC (4.8-10.8) K/uL RBC (4.2-5.4) M/uL Hgb (12.0-16.0) g/dL Hct (37-47) % MCV (80-100) fL MCH (25-34) pg MCHC (32-36) g/dL RDW Std Deviation (36.4-46.3) fL RDW Coeff of Ana (11.5-14.5) % Plt Count (130-400) K/uL MPV (7.4-10.4) fL Immature Gran % (Auto) % Neut % (Auto) % Lymph % (Auto) % Frederick % (Auto) % Eos % (Auto) % Baso % (Auto) % Neut # (Auto) (1.4-6.5) K/uL Lymph # (Auto) (1.2-3.4) K/uL Frederick # (Auto) (0.11-0.59) K/uL Eos # (Auto) (0-0.5) K/uL Baso # (Auto) (0-0.2) K/uL Immature Gran # (Auto) (0.00-0.02) K/uL Sodium (136-145) mmol/L Potassium (3.5-5.1) mmol/L Chloride (98-107) mmol/L Carbon Dioxide (21-32) mmol/L Anion Gap (3-11) BUN (6-23) mg/dl Creatinine (0.6-1.2) mg/dl Est Cr Clr Drug Dosing ml/min Est GFR ( Amer) ml/min Est GFR (Non-Af Amer) ml/min BUN/Creatinine Ratio (10-20) Glucose (70-99(Fasting)) mg/dl POC Glucose (70-99) mg/dl Osmolality 265 L (280-300) mOsm/kg Calcium (8.5-10.1) mg/dl Magnesium (1.7-2.4) mg/dl Total Bilirubin (0.2-1.0) mg/dl AST (13-39) U/L ALT (7-52) U/L Alkaline Phosphatase (34-104) U/L Total Protein (6.0-8.3) gm/dl Albumin (3.4-5.0) gm/dl Globulin (2.5-4.0) gm/dl Albumin/Globulin Ratio (0.9-2) Random Cortisol mcg/dl Urine Color Yellow Urine Appearance Clear (Clear) Urine pH 6.0 (4.5-7.5) Ur Specific [employer] 1.014 (1.000-1.030) Urine Protein Negative (Negative) Urine Glucose (UA) Negative (Negative) Urine Ketones Negative (Negative) Urine Blood Negative (Negative) Urine Nitrite Negative (Negative) Urine Bilirubin Negative (Negative) Urine Urobilinogen Negative (Negative) Ur Leukocyte Esterase Negative (Negative) Urine Osmolality (500-800) mOsm/kg Ur Random Creatinine mg/dl Ur Random Sodium mmol/L Urine Opiates Screen (Neg) Ur Methadone, Qual (Neg) Urine Barbiturates (Neg) Phenytoin 15.4 (10-20) mcg/ml Ur Phencyclidine (PCP) (Neg) U Amphetamin/Meth Scrn (Neg) MDMA (Ecstasy) Screen (Neg) U Benzodiazepines Scrn (Neg) Ur Cocaine Metabolite (Neg) U Marijuana (THC) Screen (Neg) SARS-CoV-2, RNA, NAAT (NEGATIVE) 11/13/21 Range/Units 18:33 WBC (4.8-10.8) K/uL RBC (4.2-5.4) M/uL Hgb (12.0-16.0) g/dL Hct (37-47) % MCV (80-100) fL MCH (25-34) pg MCHC (32-36) g/dL RDW Std Deviation (36.4-46.3) fL RDW Coeff of Ana (11.5-14.5) % Plt Count (130-400) K/uL MPV (7.4-10.4) fL Immature Gran % (Auto) % Neut % (Auto) % Lymph % (Auto) % Frederick % (Auto) % Eos % (Auto) % Baso % (Auto) % Neut # (Auto) (1.4-6.5) K/uL Lymph # (Auto) (1.2-3.4) K/uL Frederick # (Auto) (0.11-0.59) K/uL Eos # (Auto) (0-0.5) K/uL Baso # (Auto) (0-0.2) K/uL Immature Gran # (Auto) (0.00-0.02) K/uL Sodium (136-145) mmol/L Potassium (3.5-5.1) mmol/L Chloride (98-107) mmol/L Carbon Dioxide (21-32) mmol/L Anion Gap (3-11) BUN (6-23) mg/dl Creatinine (0.6-1.2) mg/dl Est Cr Clr Drug Dosing ml/min Est GFR ( Amer) ml/min Est GFR (Non-Af Amer) ml/min BUN/Creatinine Ratio (10-20) Glucose (70-99(Fasting)) mg/dl POC Glucose (70-99) mg/dl Osmolality (280-300) mOsm/kg Calcium (8.5-10.1) mg/dl Magnesium (1.7-2.4) mg/dl Total Bilirubin (0.2-1.0) mg/dl AST (13-39) U/L ALT (7-52) U/L Alkaline Phosphatase (34-104) U/L Total Protein (6.0-8.3) gm/dl Albumin (3.4-5.0) gm/dl Globulin (2.5-4.0) gm/dl Albumin/Globulin Ratio (0.9-2) Random Cortisol mcg/dl Urine Color Urine Appearance (Clear) Urine pH (4.5-7.5) Ur Specific [employer] (1.000-1.030) Urine Protein (Negative) Urine Glucose (UA) (Negative) Urine Ketones (Negative) Urine Blood (Negative) Urine Nitrite (Negative) Urine Bilirubin (Negative) Urine Urobilinogen (Negative) Ur Leukocyte Esterase (Negative) Urine Osmolality (500-800) mOsm/kg Ur Random Creatinine mg/dl Ur Random Sodium mmol/L Urine Opiates Screen (Neg) Ur Methadone, Qual (Neg) Urine Barbiturates (Neg) Phenytoin (10-20) mcg/ml Ur Phencyclidine (PCP) (Neg) U Amphetamin/Meth Scrn (Neg) MDMA (Ecstasy) Screen (Neg) U Benzodiazepines Scrn (Neg) Ur Cocaine Metabolite (Neg) U Marijuana (THC) Screen (Neg) SARS-CoV-2, RNA, NAAT NEGATIVE (NEGATIVE) Diagnostic Findings Chest X-Ray 11/13/21 17:46 XR chest 1V portable CLINICAL HISTORY: Stroke Like Symptoms TECHNIQUE: Single frontal radiograph of the chest was obtained. Comparison: Prior chest one view 07/28/2020 FINDINGS: No lines and tubes are seen. The cardiomediastinal silhouette is stable. The lungs are clear. No evidence of pleural effusion or pneumothorax. IMPRESSION: No acute chest disease. ACT 112: Negative or not required by law. Electronically signed by: Todd Burdick M.D. 11/13/2021 8:21 PM Shoulder X-Ray 11/13/21 20:50 LEFT SHOULDER 3 VIEWS CLINICAL HISTORY: Fall with left shoulder pain. FINDINGS: 3 views of the left shoulder are compared to study dated 12/02/2019. The skeletal structures are osteopenic. There is no radiographic evidence of left shoulder fracture or dislocation. Productive degenerative change is noted at the acromioclavicular joint. Moderate osteophytic arthritic change is seen at the glenohumeral joint. The overlying soft tissues are within normal limits. The left lung parenchyma is clear as visualized. The heart is enlarged noting atherosclerotic calcification of the thoracic aorta. IMPRESSION: Osteopenia and degenerative change as above with no acute bony abnormality identified. Electronically signed by: Connor Wright M.D. 11/14/2021 7:56 AM Hip/Pelvis X-Ray 11/13/21 21:00 SINGLE VIEW PELVIS; 2 VIEWS LEFT HIP; 2 VIEWS RIGHT HIP CLINICAL HISTORY: Fall. FINDINGS: An AP view of the pelvis with AP and frog-leg views of the right and left hip are correlated with left hip radiographs dated 03/01/[address] dated 07/28/2020. The skeletal structures are osteopenic. There is no radiographic evidence of acute fracture involving the hips or bony pelvis. Mild arthritic change and joint space narrowing is seen in the hips. Degenerative sclerosis is noted in the sacroiliac joints and pubic symphysis. Enthesophytes arise from the greater trochanters of the proximal femora and the anterior superior iliac spines. Lumbosacral spondylosis is partially visualized. The overlying soft tissues are within normal limits. Excreted IV contrast fills the bladder. There is no evidence of bowel obstruction. Atherosclerotic calcification is noted in the femoral arteries. IMPRESSION: No acute bony abnormality is identified. Electronically signed by: Connor Wirght M.D. 11/14/2021 7:55 AM Lumbar Spine MRI 11/14/21 00:05 MR lumbar spine wo con CLINICAL HISTORY: focal LLE weakness, ?neurogenic claudication TECHNIQUE: Multiplanar sequences through the lumbar spine were obtained, without intravenous contrast. Comparison: None available at the time of this dictation. FINDINGS: This exam was limited by patient intolerance. No axial series were obtained. Grade 1 anterolisthesis of L4-L5 is seen. Degenerative changes are noted in the discs and vertebral bodies. L1-L2: There is mild bilateral neural foraminal stenosis. L2-L3: There is moderate posterior disc bulge and ligamentum flavum and facet arthropathy. There is resulting moderate neuroforaminal stenosis with an AP diameter of 8 mm. Moderate bilateral neural foraminal stenosis is seen. L3-L4: Posterior disc bulge results in mild canal stenosis and moderate bilateral neuroforaminal stenosis. L4-L5: Mild bilateral neuroforaminal stenosis is seen. L5-S1: Mild bilateral neural foraminal stenosis is seen. The spinal ligaments are intact, without evidence of disruption or abnormal signal intensity. The spinal cord is normal in signal intensity and there is no evidence of cord contusion. There is no evidence of an extradural, intradural, extramedullary or intramedullary lesion. Visualized soft tissues are normal. IMPRESSION: Highly limited exam due to lack of axial series. Up to moderate canal stenosis at L2-L3 with an AP diameter of 8 mm. Moderate bilateral neural foraminal stenosis is seen. ACT 112: Negative or not required by law. Electronically signed by: Todd Burdick M.D. 11/14/2021 1:[address] 11/14/21 15:32 CT OF THE HEAD WITHOUT CONTRAST CLINICAL HISTORY: cannot tolerate MRI,assess for CVA COMPARISON STUDY: Head CT and CTA of the head November 13, 2021. CT DOSE: 1026.99 mGycm TECHNIQUE: Helical axial images of the head were obtained without IV contrast. Automated exposure control was utilized for the study. A dose lowering technique was utilized adhering to the principles of ALARA. FINDINGS: No acute intracranial hemorrhage, midline shift or mass effect is present. White matter hypodensities are unchanged and favor small vessel disease. The ventricular system is unremarkable. The basal cisterns are patent. No extra-axial collections are present. There are no findings to suggest acute dural sinus thrombosis or acute territorial infarct. No significant calvarial abnormalities are present. Visualized portions of the sinuses and mastoid air cells are clear. IMPRESSION: No acute intracranial findings. ACT 112: Negative or not required by law. Electronically signed by: Migel Tillman M.D. 11/14/2021 4:52 PM PG Care Time/CCT Total # of Minutes Spent Total Time Spent with Patient: Total time spent is greater than 50% in coordination of care (as documented) at patient's floor/unit and/or counseling patient: Coding Level of Care Code 47146 Subseq Hosp Care Lvl 3 Diagnoses Abnormal sensation of lower extremity R20.9 Fall W19.XXXA Hyponatremia E87.1 Hypomagnesemia E83.42 Seizure disorder G40.909 Hypothyroidism E03.9 Hypothyroidism type: acquired Dyslipidemia E78.5 Type 2 diabetes mellitus E11.9 History of stroke Z86.73 Respiratory illness J98.9 Shoulder pain, left M25.512 (1) Hypothyroidism Hypothyroidism type: acquired Qualified Code(s): E03.9 - Hypothyroidism, unspecified
--- NOTE | 2021-11-14 16:55 | CT Scan Report ---
CT OF THE HEAD WITHOUT CONTRAST CLINICAL HISTORY: cannot tolerate MRI,assess for CVA COMPARISON STUDY: Head CT and CTA of the head November 13, 2021. CT DOSE: 1026.99 mGycm TECHNIQUE: Helical axial images of the head were obtained without IV contrast. Automated exposure con trol was utilized for the study. A dose lowering technique was utilized adhering to the principles o f ALARA. FINDINGS: No acute intracranial hemorrhage, midline shift or mass effect is present. White matter hyp odensities are unchanged and favor small vessel disease. The ventricular system is unremarkable. The basal cisterns are patent. No extra-axial collections are present. There are no findings to suggest a cute dural sinus thrombosis or acute territorial infarct. No significant calvarial abnormalities are present. Visualized portions of the sinuses and mastoid air cells are clear. IMPRESSION: No acute intracranial findings. ACT 112: Negative or not required by law. Electronically signed by: Migel Tillman M.D. 11/14/2021 4:52 PM
[2021-11-14] MEDS ORDERED: ONDANSETRON 4 MG OD TAB PO PRN (21:23)
[2021-11-15] MEDS: LEVOTHYROXINE SODIUM 25 MCG TABLET PO SCH (05:36)
[2021-11-15 06:37] LABS: Calcium 8.4 mg/dl (8.5-10.1); Creatinine Clr Calc Pharmacy 68.8 ml/min; Est GFR (African American) 99.4 ml/min; Est GFR (Non-African American) 85.7 ml/min; Potassium 4.3 mmol/L (3.5-5.1)
--- NOTE | 2021-11-15 06:42 | Electrocardiogram Report ---
Test Reason : Blood Pressure : / mmHG Vent. Rate : 073 BPM Atrial Rate : 073 BPM P-R Int : 140 ms QRS Dur : 088 ms QT Int : 404 ms P-R-T Axes : 076 -09 009 degrees QTc Int : 445 ms Poor data quality, interpretation may be adversely affected Normal sinus rhythm Nonspecific ST and T wave abnormality Abnormal ECG When compared with ECG of 28-JUL-2020 12:40, No significant change was found Confirmed by Nabil Donaldson ([id number]) on 11/15/2021 6:42:23 AM Referred By: REFERRED SELF Confirmed By:Nabil Donaldson
[2021-11-15] MEDS: ACETAMINOPHEN 325 MG TAB PO PRN (07:33)
[2021-11-15] MEDS: INSULIN ASPART PER UNIT SC SCH ×4 (08:51→20:10)
[2021-11-15] MEDS: PHENYTOIN SODIUM ER 100 MG CAP PO SCH ×2 (08:52→20:08)
[2021-11-15] MEDS: PHENYTOIN 50 MG CHEW PO SCH (08:52)
[2021-11-15] MEDS: levETIRAcetam 250 MG TAB PO SCH ×2 (08:52→20:06)
[2021-11-15] MEDS: ASPIRIN 81 MG ECTAB PO SCH (08:52)
[2021-11-15] MEDS: ATORVASTATIN 20 MG TAB PO SCH (08:52)
[2021-11-15] MEDS: SODIUM CHLORIDE 1 GM TABLET PO SCH ×3 (08:52→20:06)
[2021-11-15] MEDS: DICLOFENAC SOD 1% GEL 100 GM TUBE EXT SCH ×4 (08:52→20:09)
--- NOTE | 2021-11-15 11:10 | Neurology Progress Note ---
Date of Service November 15, 2021 Assessment & Plan (1) Left lumbar radiculopathy: (2) Left leg weakness: Plan: Improving left lower extremity weakness and sensory loss. As per my initial consultation, patient's distribution of symptoms and examination findings seem most consistent with a lumbar radiculopathy. She does have evidence of mild lower lumbar degenerative disc disease resulting in bilateral neuroforaminal stenosis. However, I am unable to completely exclude a small right YAZ distribution stroke. I would still like this patient to have a brain MRI completed if possible and have placed this order. She may have an outpatient EMG of the left lower extremity as well, for further evaluation of suspected radiculopathy. She may continue with daily low-dose aspirin and Lipitor as well as her anticonvulsant regimen, again, her seizures have been stable for many years. Admission and Anticipated Discharge Date Admission Date: November 13, 2021 Subjective Follow-up for left leg weakness and numbness The patient reports moderate improvement in her distal left lower extremity numbness and tingling although still reports some mild numbness along the plantar aspect of the left foot. She reports that the left leg weakness has resolved. No headache, vision change, or motor or sensory loss for the left upper limb reported. No change in speech or swallowing. Review of Systems Eyes: no blind spots and no diplopia Neurologic: as per Subjective / HPI Results & Data ([facility]) Vital Signs (Past 12 Hours) Vital Signs Temp Pulse Pulse Resp BP Pulse Ox 11/15/21 08:14 36.6 C 70 20 113/71 92 11/15/21 07:14 82 11/15/21 03:57 36.9 C 69 18 150/75 H 95 11/15/21 00:08 36.3 C L 64 18 121/62 97 Laboratory Results Sodium 131, potassium 4.3, BUN 8, creatinine 0.57, glucose 102, calcium 8.4. Diagnostic Findings Repeat CT of the head completed yesterday was negative for evidence of evolving infarct, hemorrhage, or acute process. MRI of the lumbar spine completed yesterday did reveal mild multilevel degene rative disc disease with mild bilateral neuroforaminal stenosis at L4-5 and L5- S1. I reviewed the images as well as the radiologist interpretation of the above tests. Coding Level of Care Code 08489 Subseq Hosp Care Lvl 2 Diagnoses Left lumbar radiculopathy M54.16 Left leg weakness R29.897
[2021-11-15] MEDS ORDERED: hydrOXYzine HCl 25 MG TAB PO STA (11:20)
--- NOTE | 2021-11-15 12:17 | Hospitalist Progress Note ---
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 L LEG SENSORY WEAKNESS, ABNORMALITY Patient's history of chronic left hemispheric subcortical lacunar infarct without known hemiparesis, multiple previous left ankle fractures, seizures, and current hyponatremia, hypomagnesemia noted Exam is significant for sensory deficits to light touch in the left leg and foot but strength is equal bilaterally in the lower extremities. Sensation is improving today in the left leg and foot CT head, CTA of head/neck unremarkable for acute occlusion or stenosis Hyponatremia to 124 noted on arrival and could be contributing -Could be lumbar radiculopathy although MRI lumbar spine fairly unremarkable exc ept for moderate canal stenosis at L2-L3 with moderate bilateral neural foraminal stenosis which is not consistent with her symptoms -Could be peroneal nerve compression? The fact that she is improving over the last 2 days is consistent with this -This is not ischemic nerve injury as she has good pedal pulses bilaterally Appreciate neurology consultation-recommends MRI lumbar spine, MRI brain if possible versus repeat CT head noncontrast to look for stroke Also recommends EMG/NCS as an outpatient CT head noncontrast ordered on 11/14 as she refused to have MRI due to anxiety-CT head repeat is negative for stroke MRI lumbar spine with L2-3 moderate central canal stenosis but would not explain her symptomatology Patient is agreeable to try MRI of the brain today with pretreatment-we will try IV Benadryl -Check B12 level and Lyme titer in the morning PT, OT consulted-recommend rehab (2) Fall: Plan: At baseline, patient uses a walker and denies frequent falls at home; no reported functional neurologic deficits following previous stroke Suspect secondary to the left leg sensory deficits X-rays of the hips, pelvis, left shoulder, chest all negative PT, OT recommends rehab as above (3) Hyponatremia: Plan: On arrival, patient found to have sodium 124, hypochloremia 98, serum osmolality 265, urine osmolality 238, urine sodium 63 She has been having headaches associated with this for the last several weeks which are now improving Patient appears euvolemic on exam 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 cortisol are normal SIADH could be from her naproxen, but could also be secondary to recent pain she has been having from a strain in her left neck and shoulder. There are no other offending medications. Chest x-ray negative for nodules. Brain imaging negative. Sodium continues to improve today to 131 after initiating salt tablets and fluid restriction Follow BMP in the morning (4) Hypomagnesemia: Plan: Low on arrival and replaced Now resolved (5) Seizure disorder: Plan: No recent reported history of seizures Continue Dilantin, Keppra at home doses Check levels of both medications while here-Dilantin level normal, Keppra level pending (6) Hypothyroidism: Plan: TSH normal, continue levothyroxine (7) Dyslipidemia: Plan: Continue atorvastatin, aspirin (8) Type 2 diabetes mellitus: Plan: Well-controlled with A1c in April at 6% Hold Metformin while here SSI with [facility] BSG checks (9) History of stroke: Plan: Patient's history of chronic left hemispheric subcortical lacunar infarct > 20 years ago without known hemiparesis noted --does have some word finding and memory difficulties Follows with [facility] Continue atorvastatin, aspirin (10) Respiratory illness: Plan: Primary care note from 11/09 reviewed, which notes that patient has been dealing with postnasal drip for the last 4 weeks as well as ear pain and sinus congestion but patient describes this more as the "roaring sensation" in her hea d and ear This is now much improved and may be was related to her hyponatremia? CT head not demonstrating any acute inflammatory processes within the sinuses None of her symptoms improved after taking cefuroxime for 6 days Covid-19 test is negative (11) Shoulder pain, left: Plan: Patient reporting left shoulder pain that has been ongoing throughout today, prior to fall; of note, she fell on her right side and denies hitting the shoulder Of note, patient does seem to have history of left shoulder pain, x-ray performed 11/2019 did reveal degenerative changes on the side X-ray here is negative Plan: DVT prophylaxis-SCDs Disposition-continued stay, but could discharge to rehab tomorrow if insurance Auth obtained Admission and Anticipated Discharge Date Admission Date: November 13, 2021 Subjective Patient reports much less numbness in the left leg and foot today. Still a little bit of the right and thumping sensation left side of her head but overall much improved from previous. Neurology talk to her about doing the brain MRI and she is extremely anxious about doing it but says she is willing to try if she can try something stronger than what she had previously i.e. hydroxyzine. She is tearful at times when talking about going through the MRI and is worried that "the doctors will be mad at me" if she does not complete the test. Otherwise is eating and drinking has no other complaints. She was able to ambulate to the bathroom and back. Review of Systems Review of Systems: All systems reviewed & are unremarkable except as noted in HPI & below Physical Exam Constitutional: WD/WN, vitals as above Eyes: + anicteric sclerae; no anisocoria and no nystagmus Neck: trachea midline, no thyromegaly Respiratory: normal respiratory effort, lungs clear to auscultation Cardiovascular: RRR, no murmur, no edema Gastrointestinal (Abdomen): normal bowel sounds, soft, nontender, no hepatosplenomegaly Musculoskeletal: Extremities: extremities normal to inspection; no cyanosis and no clubbing Skin: no rashes, warm and dry Neurologic: moves all extremities and awake; no focal motor deficits Mot or/Sensory: + sensory deficit (Diminished light touch in left leg and foot, but much improved from previou) Psychiatric: A+Ox3, euthymic affect Lymphatic: no lymphedema Results & Data Results & Data ([facility]) Vital Signs (Past 12 Hours) Vital Signs Temp Pulse Pulse Resp BP Pulse Ox 11/15/21 11:43 36.4 C L 77 20 108/68 93 11/15/21 08:14 36.6 C 70 20 113/71 92 11/15/21 07:14 82 11/15/21 03:57 36.9 C 69 18 150/75 H 95 Laboratory Results 11/15/21 11/15/21 11/15/21 Range/Units 20:07 16:35 11:38 Sodium (136-145) mmol/L Potassium (3.5-5.1) mmol/L Chloride (98-107) mmol/L Carbon Dioxide (21-32) mmol/L Anion Gap (3-11) BUN (6-23) mg/dl Creatinine (0.6-1.2) mg/dl Est Cr Clr Drug Dosing ml/min Est GFR ( Amer) ml/min Est GFR (Non-Af Amer) ml/min BUN/Creatinine Ratio (10-20) Glucose (70-99(Fasting)) mg/dl POC Glucose 124 H 99 121 H (70-99) mg/dl Calcium (8.5-10.1) mg/dl 11/15/21 11/15/21 Range/Units 08:01 05:46 Sodium 131 L (136-145) mmol/L Potassium 4.3 (3.5-5.1) mmol/L Chloride 99 (98-107) mmol/L Carbon Dioxide 26 (21-32) mmol/L Anion Gap 6 (3-11) BUN 8 (6-23) mg/dl Creatinine 0.57 L (0.6-1.2) mg/dl Est Cr Clr Drug Dosing 68.8 ml/min Est GFR ( Amer) 99.4 ml/min Est GFR (Non-Af Amer) 85.7 ml/min BUN/Creatinine Ratio 14.0 (10-20) Glucose 102 H (70-99(Fasting)) mg/dl POC Glucose 110 H (70-99) mg/dl Calcium 8.4 L (8.5-10.1) mg/dl PG Care Time/CCT Total # of Minutes Spent Total Time Spent with Patient: Total time spent is greater than 50% in coordination of care (as documented) at patient's floor/unit and/or counseling patient: Coding Level of Care Code 26133 Subseq Hosp Care Lvl 2 Diagnoses Abnormal sensation of lower extremity R20.9 Fall W19.XXXA Hyponatremia E87.1 Hypomagnesemia E83.42 Seizure disorder G40.909 Hypothyroidism E03.9 Hypothyroidism type: acquired Dyslipidemia E78.5 Type 2 diabetes mellitus E11.9 History of stroke Z86.73 Respiratory illness J98.9 Shoulder pain, left M25.512 (1) Hypothyroidism Hypothyroidism type: acquired Qualified Code(s): E03.9 - Hypothyroidism, unspecified
[2021-11-15] MEDS ORDERED: diphenhydrAMINE 50 MG/ML VIAL IV ONE (18:01)
[2021-11-15] MEDS ORDERED: diphenhydrAMINE 50 MG/ML VIAL ONE (20:36)
[2021-11-16] MEDS: LEVOTHYROXINE SODIUM 25 MCG TABLET PO SCH (05:42)
[2021-11-16 06:10] LABS: BUN Creatinine Ratio 16.9 (10-20); Calcium 8.6 mg/dl (8.5-10.1); Creatinine Clr Calc Pharmacy 67.3 ml/min; Est GFR (African American) 98.2 ml/min; Est GFR (Non-African American) 84.8 ml/min; Potassium 4.3 mmol/L (3.5-5.1)
[2021-11-16 06:32] LABS: Lyme Ab IgG w/WB Rflx Negative (Negative); Lyme Ab IgM w/WB Rflx Negative (Negative)
[2021-11-16] MEDS: INSULIN ASPART PER UNIT SC SCH ×2 (08:10→11:48)
[2021-11-16] MEDS: DICLOFENAC SOD 1% GEL 100 GM TUBE EXT SCH (08:10)
[2021-11-16] MEDS: PHENYTOIN SODIUM ER 100 MG CAP PO SCH (08:11)
[2021-11-16] MEDS: PHENYTOIN 50 MG CHEW PO SCH (08:11)
[2021-11-16] MEDS: SODIUM CHLORIDE 1 GM TABLET PO SCH (08:11)
[2021-11-16] MEDS: ASPIRIN 81 MG ECTAB PO SCH (08:11)
[2021-11-16] MEDS: levETIRAcetam 250 MG TAB PO SCH (08:11)
[2021-11-16] MEDS: ATORVASTATIN 20 MG TAB PO SCH (08:11)
[2021-11-16] MEDS: ACETAMINOPHEN 325 MG TAB PO PRN (08:15)
[2021-11-16] MEDS ORDERED: CYANOCOBALAMIN 1000 MCG/ML VIAL IM ONE (08:17)
--- NOTE | 2021-11-16 09:16 | Neurology Progress Note ---
Date of Service November 16, 2021 Assessment & Plan (1) Left leg weakness: (2) Left lumbar radiculopathy: (3) Stroke-like symptoms: Plan: Improving, stable, left lower extremity weakness and sensory loss. Initial pattern of sensory loss suggestive of an L5-S1 dermatomal pattern. However, timing of illness, sudden onset potentially suggestive of right YAZ territory stroke. Unfortunately, patient wdid not tolerate brain MRI due to significant claustrophobia and anxiety. She does have several stroke risk factors including type 2 diabetes mellitus and dyslipidemia. Patient already taking daily low- dose aspirin, atorvastatin, and Metformin, she should continue with these medications. Would recommend 30-day mobile cardiac outpatient telemetry. Would also recommend completion of an outpatient EMG/NCV of the left lower extremity. History also notable for stable seizure disorder, patient to continue with Dilantin and Keppra at the current dosages. PT/OT. Patient may follow-up with me or one of our advanced practice clinicians in clinic in 2 to 3 weeks. Admission and Anticipated Discharge Date Admission Date: November 13, 2021 Subjective Follow-up for leg weakness The patient continues to report mild left lower extremity weakness and sensory loss, although stable compared with yesterday. Denies significant low back pain. Unable to tolerate brain MRI due to anxiety and claustrophobia. Did tolerate a lumbar spine MRI, at least partially. The study did reveal multilevel degenerative disc disease with an element of bilateral foraminal narrowing at the lower lumbar levels. Denies sciatica type pain at this point in time. Has had 2 head CTs completed, no evidence of evolving infarct although does have chronic microvascular ischemic disease. CT angiography of the head and neck unremarkable. History also notable for stable seizure disorder. No seizure episodes during this hospitalization. Patient does complain of a low-grade frontal headache, no vision loss, diplopia, dysarthria, or dysphagia. Review of Systems Eyes: no blind spots and no diplopia Neurologic: as per Subjective / HPI, + localized weakness, + loss of sensation and + headache(s) Results & Data ([facility]) Vital Signs (Past 12 Hours) Vital Signs Temp Pulse Pulse Pulse Resp BP Pulse Ox 11/16/21 07:50 36.6 C 81 20 158/80 H 93 11/16/21 07:26 78 11/16/21 06:31 36.8 C 82 18 116/73 94 11/16/21 05:22 78 04/08/22 03:08 36.6 C 82 18 128/79 95 11/15/21 23:24 36.3 C L 76 18 138/67 97 Laboratory Results Sodium 133, potassium 4.3, BUN 10, creatinine 0.59, glucose 111, calcium 8.6, vitamin B12 154 Diagnostic Findings Follow-up CT of the head completed November 14, 2021 is negative for evolving infarct, hemorrhage, or acute process. There was evidence of chronic microvascular ischemic change. No hydrocephalus. An electrocardiogram revealed a normal sinus rhythm. Exam (Neuro) Neurologic: Oriented to:: Person, Place and Time Attention: Span Intact and Concentration Intact Speech Fluency: negative Dysarthria or Dysfluency Fund of Knowledge: Current Events, Past History and Vocabulary Cranial Nerves: Normal II, III, IV, , V, VII, VIII, IX, X, XI and XII Motor Stren gth: Normal Upper Extremities; negative Normal Lower Extremities (Mild left lower extremity weakness appreciated.) Muscle Bulk/Involuntary Movements: No Involuntary Movements Sensation: negative Light Touch Intact (LLE) Coding Level of Care Code 71161 Subseq Hosp Care Lvl 2 Diagnoses Left leg weakness R29.898 Left lumbar radiculopathy M54.16 Stroke-like symptoms R29.90
--- NOTE | 2021-11-16 10:12 | Discharge Summary ---
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 Patient is very pleasant and oriented, but difficult to obtain history from. Patient says that she was in her normal health up until about 1430 on day of admission, when she was going to get up out of bed and noticed her L foot felt numb -- and perhaps extended up to her knee. When she went to stand, it felt like her leg was going to give out. As a result of this, she did fall onto her R side. Did not hit her head. The last time she walked prior to this was around noon. 911 was called as a result of these events. Of note, patient does report a history of 2 fractures within the left ankle. She does have osteoporosis. She denies any sort of surgical repair. She is not able to provide much more information about these fractures but says "I've always had trouble with this leg." She denies any prior numbness or tingling. Further, she denies any back pain when asked. Denies any new issues with bowel or bladder. She says the only new medication she has started within the last few days was cefdinir, prescribed by her primary care physician. Otherwise has been taking her medications as instructed without missed doses. Functionally, she does use a cane to get around but denies frequent falls. She reports no change in p.o. intake. She denies drinking water frequently. She denies any nausea, vomiting, diarrhea. She denies any history of alcohol use, recreational drug use, tobacco use. In the emergency department, patient was found to be hemodynamically stable. Per the emergency physician, patient was found to have motor and sensory deficits in the left lower extremity. As a result, stroke alert was called. TPA was not advised by the on-call neurologist. Labs were significant for sodium 124, chloride 93, potassium 4.2, magnesium 1.4, TSH 0.47. CT and CTA of the head/neck was not revealing of any acute process or abnormality. Principal Diagnosis Suspected right YAZ territory ischemic CVA, Left leg weakness/numbness, Hyponatremia Discharge Exam Constitutional WD/WN, vitals as above Eyes + anicteric sclerae; no anisocoria and no nystagmus ENMT external ear and nose normal, oropharynx normal Neck trachea midline, no thyromegaly Respiratory normal respiratory effort, lungs clear to auscultation Cardiovascular RRR, no murmur, no edema Chest (Breasts) Chest: normal inspection of chest Gastrointestinal (Abdomen) normal bowel sounds, soft, nontender, no hepatosplenomegaly Musculoskeletal Extremities: extremities normal to inspection; no cyanosis and no clubbing Skin no rashes, warm and dry Neurologic moves all extremities and awake; no focal motor deficits Motor/Sensory: + sensory deficit (Diminished light touch in left leg and foot, but much improved from previou) Psychiatric A+Ox3, euthymic affect Lymphatic no lymphedema Discharge Data Allergies Allergy/AdvReac Type Severity Reaction Status Date / Time levofloxacin [From Levaquin] Allergy Severe Possible Verified 11/13/21 20:41 seizure peanut Allergy Mild SNEEZE, Verified 11/13/21 20:41 COUGH allopurinol [From Zyloprim] Allergy Unknown Unknown Verified 11/13/21 20:41 lorazepam Allergy Unknown Unknown Verified 11/13/21 20:41 nortriptyline Allergy Unknown Unknown Verified 11/13/21 20:41 Opioids - Morphine Analogues Allergy Unknown Unknown Verified 11/13/21 20:41 Penicillins Allergy Unknown Unknown Verified 11/13/21 20:41 Sulfa (Sulfonamide Allergy Unknown Unknown Verified 11/13/21 20:41 Antibiotics) risedronate sodium AdvReac Intermediate Intolerence Verified 11/13/21 20:41 [From Actonel] Consultations 11/13/21 19:49 ED Decision to Admit Stat 11/13/21 22:02 Consult Neurology Routine Ordered Studies 11/13/21 17:46 CT angio head w con Stat CT angio neck with con Stat CT head/brain wo con Stat 11/14/21 00:05 MR lumbar spine wo con Routine 11/14/21 15:32 CT head/brain wo con Routine 11/15/21 11:08 MR brain wo con Routine Hospital Course (1) Abnormal sensation of lower extremity: This is an 85-year-old female with a notable past medical history of previous L ankle fracture (per patient), 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 L LEG SENSORY WEAKNESS, ABNORMALITY Patient's history of chronic left hemispheric subcortical lacunar infarct without known hemiparesis, multiple previous left ankle fractures, seizures, and current hyponatremia, hypomagnesemia noted Exam is significant for sensory deficits to light touch in the left leg and foot but strength is equal bilaterally in the lower extremities. Sensation is improving today in the left leg and foot CT head, CTA of head/neck unremarkable for acute occlusion or stenosis Hyponatremia to 124 noted on arrival and could be contributing -Could be lumbar radiculopathy although MRI lumbar spine fairly unremarkable except for moderate canal stenosis at L2-L3 with moderate bilateral neural foraminal stenosis which is not consistent with her symptoms -Could be peroneal nerve compression? The fact that she is improving over the last 3 days is consistent with this -This is not ischemic nerve injury as she has good pedal pulses bilaterally Appreciate neurology consultation-recommends MRI lumbar spine, MRI brain if possible versus repeat CT head noncontrast to look for stroke-MRI lumbar spine with L2-3 moderate central canal stenosis but would not explain her symptomatology Neuro recommends EMG/NCS as an outpatient of E CT head noncontrast ordered on 11/14 as she refused to have MRI due to anxiety-CT head repeat is negative for stroke Patient is agreeable to try MRI of the brain with pretreatment-again unable ot be completed B12 level very low at 154--> treat with IM and po B12 Lyme titer negative Overall could be small right sided YAZ territory CVA vs peroneal nerve compression or lumbar radiculaopathy (poor quality and incomplete MRI lumbar spine images) continue ASA, statin, BP control, DM control -f/u with Neuro in 2-3 weeks -30 day cardiac event monitor should be arranged PT, OT consulted-recommend rehab (2) Fall: At baseline, patient uses a walker and denies frequent falls at home; no reported functional neurologic deficits following previous stroke Suspect secondary to the left leg sensory deficits X-rays of the hips, pelvis, left shoulder, chest all negative PT, OT recommends rehab as above (3) Hyponatremia: On arrival, patient found to have sodium 124, hypochloremia 98, serum osmolality 265, urine osmolality 238, urine sodium 63 She has been having headaches associated with this for the last several weeks which are now improving as sodium improved Patient appears euvolemic on exam 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 cortisol are normal SIADH could be from her naproxen, but could also be secondary to recent pain she has been having from a strain in her left neck and shoulder. There are no other offending medications. Chest x-ray negative for nodules. Brain imaging negative. Sodium continues to improve today to 133 after initiating salt tablets and fluid restriction -continue NaCl 1000mg po bid on discharge x 1 week Follow BMP in one week at SNF (4) Hypomagnesemia: Low on arrival and replaced Now resolved (5) Seizure disorder: No recent reported history of seizures Continue Dilantin, Keppra at home doses Check levels of both medications while here-Dilantin level normal, Keppra level pending at time of dc (6) Hypothyroidism: TSH normal, continue levothyroxine (7) Dyslipidemia: Continue atorvastatin, aspirin (8) Type 2 diabetes mellitus: Well-controlled with A1c in April at 6% Hold Metformin while here but restart on discharge gave SSI here (9) History of stroke: Patient's history of chronic left hemispheric subcortical lacunar infarct > 20 years ago without known hemiparesis noted --does have some word finding and memory difficulties Follows with [facility] Continue atorvastatin, aspirin (10) Respiratory illness: Primary care note from 11/09 reviewed, which notes that patient has been dealing with postnasal drip for the last 4 weeks as well as ear pain and sinus congestion but patient describes this more as the "roaring sensation" in her head and ear This is now much improved and may be was related to her hyponatremia? CT head not demonstrating any acute inflammatory processes within the sinuses None of her symptoms improved after taking cefuroxime for 6 days-stopped abx Covid-19 test is negative (11) Shoulder pain, left: Patient reporting left shoulder pain that has been ongoing throughout today, prior to fall; of note, she fell on her right side and denies hitting the shoulder Of note, patient does seem to have history of left shoulder pain, x-ray [facility] 11/2019 did reveal degenerative changes on the side X-ray here is negative continue Voltaren gel DVT prophylaxis-SCDs Disposition-dc to rehab today Total Time Total Time Spent Total Time Spent (In Minutes): 40 min Discharge Plan Discharge Items Patient Disposition: Transfer [facility] Reason For Visit: LLE WEAKNESS, C/F TIA, HYPONATREMIA Discharge Diagnosis: Left leg numbness,fall, hyponatremia Condition on Discharge: Good Activity: As commented below Lifting: Gradually increase as tolerated Bathing: No limitations Exercise/Sports: Gradually increase as tolerated Weightbearing: Full weightbearing Non-emergency contact: Primary Care Provider and Neurologist Call non-emergency contact if: you have any medication questions and your symptoms worsen Follow-up/Referrals: Reji Montero MD [Physician] - (Follow up with Neurology in 2-3 weeks) Francesca Tillman MD [Primary Care Provider] - (Follow up after discharge from rehab) Diet: Carb Consistent or DM2 Fluids: 1200ml (5 cups) Diet Comment: can liberalize salt in diet Addtl Attending Provider Instructions: You were admitted with left leg weakness and numbness as well as low sodium levels. Your head CT did not show a stroke but a brain MRI was not able to be performed due to claustrophobia. This could be from a small stroke. It could also be from a peripheral nerve issue in your leg.Fortunately, your leg symptoms are improving, but you need rehab for strengthening. Continue current meds to include aspirin and atorvastatin. Would recommend 30-day mobile cardiac outpatient telemetry to r/o occult atrial fibrillation Would also recommend completion of an outpatient EMG/NCV of the left lower extremity. This can be arranged through Dr. Montero's office. Your headache is ongoing but improved and can continue to be treated with tylenol as needed. Your sodium levels are improved with restricting your fluid intake and adding salt tablets. The low sodium is likely from the pain you've been having, but could also be secondary to a stroke. Please continue the salt tablets for now and have your BMP checked at rehab in 1 week. Your Vitamin B12 levels were checked and were found to be very low. You were given a shot of B12 x 1 and should continue on oral B12 for now. Have your PCP check your B12 levels in 1 month to see if you will need another shot at that time. Low B12 levels can also affect your nerve health. Risk Factors for Stroke: You can reduce your chances of stroke by working with your medical provider to adopt a healthy lifestyle. Some specific ways to lower your chance of stroke are: * If you are a smoker, now is the time to stop smoking cigarettes * If you are diabetic, improve the control of your blood sugars * Avoid excessive amounts of alcohol * Control high blood pressure * Lose weight if you are overweight * Be sure to lead an active lifestyle * Eat a healthy diet low in salt, cholesterol and fat You should know about other risk factors for stroke that you are unable to control. These include: * Age 55 years or older * Male gender * Certain racial groups: , or / * Family History of Stroke, Mini stroke or Heart Attack * Sickle Cell Disease Follow Up: It is important for you to keep your follow up appointments with your medical provider. Who to Call and When: Medical Emergencies: Call 911 immediately if you experience any of the following warning signs and symptoms of Stroke: * Sudden numbness or weakness of the face, arm or leg, especially on one side of the body * Sudden confusion, trouble speaking or understanding * Sudden trouble seeing in one or both eyes * Sudden trouble walking, dizziness, loss of balance or coordination * Sudden severe headache with no cause Do not delay calling 911 if you experience any warning signs or symptoms of a stroke. Delay in seeking medical attention may affect what treatments can be given to you. .F Pending Studies at Discharge: Yes (Keppra level) Stand-Alone Forms: My [facility] Skilled Items Patient informed of condition?: Yes DNR: No Discharge Level of Care: Skilled Communicable Disease: No Discharge Prognosis: Improving Lines: None Urinary Catheter: No Medications and DC Order Prescriptions: New acetaminophen 325 mg Tablet 650 mg PO Q4H PRN (Reason: pain) Qty: 30 RF: 0 sodium chloride 1 gram Tablet 1 g PO BID Qty: 14 RF: 0 cyanocobalamin (vitamin B-12) 1,000 mcg capsule 1,000 mcg PO DAILY Qty: 30 RF: 0 Continued metformin 500 mg tablet 500 mg PO BID Qty: 180 RF: 3 levothyroxine 50 mcg tablet 25 mcg PO DAILY Qty: 90 RF: 3 phenytoin sodium extended [Dilantin Extended] 100 mg capsule 100 mg PO .COMPLEX 90 Days Qty: 270 RF: 1 atorvastatin 20 mg tablet 20 mg PO DAILY Qty: 90 RF: 3 diclofenac sodium [Voltaren Arthritis Pain] 1 % gel 2 g topical QID Qty: 100 RF: 2 aspirin 81 mg tablet,chewable 81 mg PO QAM RF: 0 phenytoin [Dilantin Infatabs] 50 mg tablet,chewable 50 mg PO QAM Qty: 90 RF: 1 levetiracetam 750 mg tablet 750 mg PO BID Qty: 180 RF: 1 Discontinued cefuroxime axetil 500 mg tablet 500 mg PO BID Qty: 20 RF: 0 naproxen 375 mg tablet 375 mg PO BID PRN (Reason: Pain) RF: 0 Discharge Orders: Discharge Order (Routine); Ordered 11/16/21 Ordered By: Katharina Mock Admission Data Admit Date/Time: 11/13/21 20:41 Attending Provider: Katharina Mock Admit Provider: Sandip Vasquez Primary Care Provider: Francesca Tillman Other Providers: Surekha Ch ; Reji Montero ; Juan Carlos Montez ; Edelmira Padilla ; Margo Mason ; Priti Loyola ; [place],[facility] [place] Coding Level of Care Code D/C DAY MANAGEMENT >30 MINS Diagnoses Abnormal sensation of lower extremity R20.9 Fall W19.XXXA Hyponatremia E87.1 Hypomagnesemia E83.42 Seizure disorder G40.909 Hypothyroidism E03.9 Hypothyroidism type: acquired Dyslipidemia E78.5 Type 2 diabetes mellitus E11.9 History of stroke Z86.73 Respiratory illness J98.9 Shoulder pain, left M25.512
[2021-11-16 10:50] VITALS: BP 128/80; PULSE 78; TEMP 97.5; O2SAT 97
[2021-11-17] MEDS ORDERED: CYANOCOBALAMIN (B-12) 500 MCG TABLET PO SCH (09:00)
== END 2021-11-16 12:42 | DRG 65 ==
LOC: ED 16:55 → SUATTDRO 20:41 → 2N 20:41

== ENCOUNTER 2022-10-16 11:33 | Inpatient (IN) ==
[2022-10-16] MEDS ORDERED: SODIUM CHLORIDE 0.9% 1000ML 1,000 ML IV SCH (12:00)
--- NOTE | 2022-10-16 12:00 | Emergency Department Note ---
Impression & Plan Fall, CHI (closed head injury), AMS (altered mental status), Dilantin toxicity ED Provider Note INFORMANT: Patient and daughter ED PROVIDER(S): Santiago Choi MD CHIEF COMPLAINT: Fall PLAN: Disposition: Admitted Condition: Good Outpatient prescription management: none Referral: None MEDICAL DECISION MAKING: Patient presented because of a fall. She had a change in her baseline mental status. Daughter is present and helps with the history. She notes that normally the patient is very sharp and not having issues with confusion. Since the head injury the patient has had a change. Daughter did note concerns about UTIs the patient has had multiple UTIs over the last year or so. Patient had IV established prehospital. She was treated with Zofran prehospital and she was started on IV hydration here in the ER. Her CBC and chemistry panels were unremarkable. Cardiac troponin negative. Cath urinalysis did reveal positive nitrite but no other significant abnormalities. I did send a culture. Prior record review indicated that the patient has had a pansensitive E. coli and Proteus infections most recently. CT imaging of the head and neck were performed and did not reveal any acute intracranial injury or signs of stroke. Patient cervical collar was discontinued and she did feel better regarding her head and neck. She still had a mild posterior headache in the area of impact. Tylenol was ordered. Patient was empirically given a dose of IV Rocephin in light of the fact that this could be a UTI and metabolic encephalopathy. She may also have change mental status secondary to concussion. She is doing relatively well at this time but not well enough to go home. Dilantin level is pending. I discussed this with the patient and daughter. They are in agreement. [facility] Patient was evaluated in the ER admitted for further management. After consultation with internal medicine, the patient's Dilantin level was found to be supratherapeutic. This certainly could be contributing to the issue. Discussed with transition manager. After review of the information above and other included data, I feel the patient requires admission. Triage Nursing notes reviewed and agree them. Vital Signs: reviewed and remarkable for no significant abnormalities Prior /Outside records reviewed: Prior culture results reviewed as noted above. Multiple UTIs. Differential diagnosis: Infection, hypoglycemia, electrolyte abnormalities, overdose, toxicologic, ACS, ICH, SDH, neurologic, trauma, as well as other pathologies. Diagnostics, as interpreted by me: ECG: Twelve-lead ECG reveals a normal sinus rhythm at [address] No [address] elevation. No ST depression. Cardiac Monitoring: Cardiac monitoring ordered by me: The patient was placed on continuous cardiac monitoring and observed. It revealed a normal sinus rhythm at 65 beats per minute without ectopy or evidence of dysrhythmia. Medical decision rules: none Imaging studies: Head CT: A noncontrast CT scan of the head was performed and was negative for tumor, fracture, intracranial hemorrhage, or other acute pathology. Cervical spine CT is negative for fracture or dislocation. Chest x-ray. Findings: A chest x-ray was performed and revealed no pneumothorax, effusion, infiltrate, pulmonary edema, free air under the diaphragm, or wide mediastinum. Impression: No acute disease. HPI: The patient is a 86year old female who presents to the Emergency Room with complaints of a fall last night. Patient states she lost balance and fell backwards. She struck the back of her head. She noted a headache and had 1 episode of vomiting last night. The patient also notes the following associated symptoms, feeling generally weak and confused. Daughter is present and helps with the history. States she is normally fairly sharp and not confused. The patient has been given Zofran prehospital for relieving factors. Current pain is rated mild. Pt denies LOC, fevers, chills, diaphoresis, visual changes, neck pain, chest pain, breathing difficulties, abdominal pain, back pain, melena, hematochezia, urinary symptoms, numbness, lymphadenopathy, rash, or other complaints. PAST MEDICAL HISTORY: See Below, UTI, diabetes PAST SURGICAL HISTORY: See Below, SOCIAL HISTORY: See Below, retired. Lives with family. HOME MEDICATIONS: See Below ALLERGIES: See Below VITALS: See Below PHYSICAL EXAMINATION: GENERAL: Awake, alert, well-appearing, in no distress HENT: Normocephalic, mild occipital contusion. Oropharynx unremarkable. EYES: Normal conjunctiva. Sclera non-icteric. NECK: Inspection normal. Non-tender. Supple. No nuchal rigidity. FROM. No tata s. RESPIRATORY: Clear to auscultation. No wheezes. No rales. Normal respiratory effort. CARDIAC: Normal rate. Normal rhythm. No murmurs. No rubs. Extremities warm and well perfused. Pulses equal. No JVD. GI: Soft, non-distended. No tenderness to palpation. No rebound or guarding. No masses. RECTAL: Deferred. MUSCULOSKELETAL: Atraumatic. Chest examination reveals no tenderness. The back is symmetrical on inspection without obvious abnormality. There is no CVA tenderness to palpation. No joint edema. LOWER EXTREMITIES: Calves are equal size bilaterally and non-tender. No edema. No discoloration. NEURO: Mildly altered sensorium. No focal sensory or motor deficits noted. SKIN: No rash or jaundice noted. Past Med/Surg History Medical History Acid reflux B12 deficiency Dyslipidemia Hiatal hernia History of stroke Hypothyroidism Idiopathic polyneuropathy Osteoarthritis Osteoporosis Seizure disorder Type 2 diabetes mellitus Surgical History H/O: hysterectomy (~1965) History of ankle surgery History of appendectomy (~1965) History of colonoscopy History of ERCP (07/29/20) History of open reduction and internal fixation (ORIF) procedure History of right cataract extraction History of surgery on left wrist History of tooth extraction S/P cholecystectomy (07/29/20) S/P endoscopic carpal tunnel release Family History Father Hypertension Mother Diabetes Myocardial infarction Brother Diabetes Lung disease Brother Diabetes Brother Diabetes Brother Diabetes Brother Diabetes Other No family history of adverse response to anesthesia Denies family history of Ovarian cancer Prostate cancer Breast cancer Colorectal cancer Social History Smoking Status: Never smoker Second Hand Exposure: No; Hx Alcohol Use: No Hx Substance Use: No Preferred Language: Indonesian Communication Ability: Effective Visual Impairment: No Limitations Hearing Ability: Hard of Hearing Rn Anesthetist Required: No Beliefs That Will Affect Care: None marital status: / Current Living Situation: Family Current Living Situation Comment: Lives with Son current occupational status: retired 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 How many Children do You have: 2 Feels Safe at Home: Yes Childhood Exposure to Second-Hand Smoke: Yes Diet Comment: Patient watches serving sizes and counts carefully Dental Care, Regularly: No Physical Activity Frequency: Daily Seatbelt Use: always Sunscreen Use: Yes (when she goes outside ) Gender Identity: Female Assistive Devices: Cane, Denture - Upper and Walker Allergies Allergies Allergy/AdvReac Type Severity Reaction Status Date / Time levofloxacin [From Levaquin] Allergy Severe Possible Verified 10/16/22 13:50 seizure peanut Allergy Mild SNEEZE, Verified 10/16/22 13:50 COUGH allopurinol [From Zyloprim] Allergy Unknown Unknown Verified 10/16/22 13:50 lorazepam Allergy Unknown Unknown Verified 10/16/22 13:50 nortriptyline Allergy Unknown Unknown Verified 10/16/22 13:50 Opioids - Morphine Analogues Allergy Unknown Unknown Verified 10/16/22 13:50 Penicillins Allergy Unknown Unknown Verified 10/16/22 13:50 Sulfa (Sulfonamide Allergy Unknown Unknown Verified 10/16/22 13:50 Antibiotics) risedronate sodium AdvReac Intermediate Intolerence Verified 10/16/22 13:50 [From Actonel] Home Meds Home Medications Medication Instructions Recorded Confirmed diclofenac sodium 1 % topical gel 2 g topical QID PRN Pain 10/16/22 10/16/22 (Voltaren Arthritis Pain) phenytoin sodium extended 100 mg 100 mg PO BID 10/16/22 10/16/22 capsule (Dilantin Extended) sodium chloride 1,000 mg soluble 1,000 mg PO BID 10/16/22 10/16/22 tablet Previous Rx's Medication Instructions Recorded acetaminophen 325 mg tablet 650 mg PO Q4H PRN pain #30 tabs 11/16/21 cyanocobalamin (vitamin B-12) 1,000 mcg PO DAILY #30 caps 11/16/21 1,000 mcg capsule magnesium oxide 400 mg (241.3 mg 400 mg PO HS #30 tabs 12/07/21 magnesium) tablet levetiracetam 750 mg tablet 750 mg PO BID #180 tabs 01/16/22 metformin 500 mg tablet 500 mg PO BID #180 tabs 03/01/22 atorvastatin 20 mg tablet 20 mg PO DAILY #90 tabs 05/22/22 levothyroxine 25 mcg tablet 25 mcg PO DAILY #90 tabs 09/06/22 Results & Data (ED) Vital Signs Vital Signs - 24 hr 10/16/22 11:49 10/16/22 12:08 10/16/22 11:53 Temperature 36.6 C Temperature Source Oral Pulse Rate 74 67 70 Pulse Rate [Apical] Pulse Rhythm Regular Regular Pulse Rhythm [Apical] Pulse Strength Normal Pulse Strength [Apical] Respiratory Rate 18 17 Respiratory Effort / Characteristics Non-Labored Respiratory Depth Normal Respiratory Pattern Regular Blood Pressure 171/77 H Blood Pressure [Left Arm] Blood Pressure Mean 108 Blood Pressure Mean [Left Arm] Blood Pressure Position Lying Blood Pressure Position [Left Arm] Pulse Oximetry 95 100 Oxygen Delivery Method Room Air Room Air Sepsis Recent Fever Within 48 Hours No Sepsis New/Unexplained Change in Mental Status No Sepsis Action Taken by Nursing No Action Required 10/16/22 11:56 10/16/22 14:00 Temperature Temperature Source Pulse Rate Pulse Rate [Apical] 70 65 Pulse Rhythm Pulse Rhythm [Apical] Regular Regular Pulse Strength Pulse Strength [Apical] Normal Normal Respiratory Rate 19 18 Respiratory Effort / Characteristics Non-Labored Spontaneous Non-Labored Spontaneous Respiratory Depth Normal Normal Respiratory Pattern Regular Regular Blood Pressure Blood Pressure [Left Arm] 133/94 141/70 H Blood Pressure Mean Blood Pressure Mean [Left Arm] 107 93 Blood Pressure Position Blood Pressure Position [Left Arm] Lying Sitting Pulse Oximetry 100 95 Oxygen Delivery Method Room Air Room Air Sepsis Recent Fever Within 48 Hours Sepsis New/Unexplained Change in Mental Status Sepsis Action Taken by Nursing Laboratory Data 10/16/22 11:41 10/16/22 11:41 Lab Results 10/16/22 10/16/22 10/16/22 Range/Units 11:41 11:41 11:41 WBC 7.60 (4.8-10.8) K/ul RBC 3.83 L (4.20-5.40) M/uL Hgb 12.5 (12.0-16.0) g/dl Hct 38.2 (37.0-47.0) % MCV 99.7 (80.0-100.0) fL MCH 32.6 (25.0-34.0) pg MCHC 32.7 (32.0-36.0) g/dL RDW Std Deviation 49.6 H (36.4-46.3) fL RDW Coeff of Ana 13.5 (11.5-14.5) % Plt Count 250 (130-400) K/uL MPV 9.4 (9.4-12.4) fL Immature Gran % (Auto) 0.3 % Neut % (Auto) 59.1 % Lymph % (Auto) 29.9 % [place] % (Auto) 8.2 % Eos % (Auto) 2.0 % Baso % (Auto) 0.5 % Neut # (Auto) 4.50 (1.40-6.50) K/uL Lymph # (Auto) 2.27 (1.2-3.4) K/uL [place] # (Auto) 0.62 H (0.11-0.59) K/uL Eos # (Auto) 0.15 (0-0.50) K/uL Baso # (Auto) 0.04 (0-0.2) K/uL Immature Gran # (Auto) 0.02 (0.01-0.20) K/uL Sodium 130 L (136-145) mmol/L Potassium 4.5 (3.5-5.1) mmol/L Chloride 97 L (98-107) mmol/L Carbon Dioxide 27 (21-32) mmol/L Anion Gap 6 (3-11) BUN 9 (6-23) mg/dl Creatinine 0.63 (0.6-1.2) mg/dl Est Cr Clr Drug Dosing 59.0 ml/min Est GFR ( Amer) 95.5 ml/min Est GFR (Non-Af Amer) 82.4 ml/min BUN/Creatinine Ratio 14.3 (10-20) Glucose 129 H (70-99(Fasting)) mg/dl POC Glucose (70-99) mg/dl Calcium 9.3 (8.5-10.1) mg/dl Magnesium 1.5 L (1.7-2.4) mg/dl Total Bilirubin 0.3 (0.2-1.0) mg/dl AST 21 (13-39) U/L ALT 12 (7-52) U/L Alkaline Phosphatase 132 H (34-104) U/L Total Creatine Kinase 63 (26-192) U/L Troponin I High Sens 3.4 (0-14) pg/ml Total Protein 7.2 (6.0-8.3) gm/dl Albumin 4.5 (3.4-5.0) gm/dl Globulin 2.7 (2.5-4.0) gm/dl Albumin/Globulin Ratio 1.7 (0.9-2) TSH 0.776 (0.300-4.500) uIu/ml Urine Color Urine Appearance (Clear) Urine pH (4.5-7.5) Ur Specific [place] (1.000-1.030) Urine Protein (Negative) Urine Glucose (UA) (Negative) Urine Ketones (Negative) Urine Blood (Negative) Urine Nitrite (Negative) Urine Bilirubin (Negative) Urine Urobilinogen (Negative) Ur Leukocyte Esterase (Negative) Urine WBC (Auto) (0-5) /hpf Urine RBC (Auto) (0-4) /hpf U Hyaline Cast (Auto) (0-5) /lpf U Epithel Cells (Auto) (0-5) /lpf Urine Bacteria (Auto) (Negative) Phenytoin (10-20) mcg/ml SARS-CoV-2 (PCR) (Negative) Influenza Type A (PCR) (Neg) Influenza Type B (PCR) (Neg) RSV (RT-PCR) (Neg) 10/16/22 10/16/22 10/16/22 Range/Units 11:41 11:54 11:58 WBC (4.8-10.8) K/ul RBC (4.20-5.40) M/uL Hgb (12.0-16.0) g/dl Hct (37.0-47.0) % MCV (80.0-100.0) fL MCH (25.0-34.0) pg MCHC (32.0-36.0) g/dL RDW Std Deviation (36.4-46.3) fL RDW Coeff of Ana (11.5-14.5) % Plt Count (130-400) K/uL MPV (9.4-12.4) fL Immature Gran % (Auto) % Neut % (Auto) % Lymph % (Auto) % [place] % (Auto) % Eos % (Auto) % Baso % (Auto) % Neut # (Auto) (1.40-6.50) K/uL Lymph # (Auto) (1.2-3.4) K/uL [place] # (Auto) (0.11-0.59) K/uL Eos # (Auto) (0-0.50) K/uL Baso # (Auto) (0-0.2) K/uL Immature Gran # (Auto) (0.01-0.20) K/uL Sodium (136-145) mmol/L Potassium (3.5-5.1) mmol/L Chloride (98-107) mmol/L Carbon Dioxide (21-32) mmol/L Anion Gap (3-11) BUN (6-23) mg/dl Creatinine (0.6-1.2) mg/dl Est Cr Clr Drug Dosing ml/min Est GFR ( Amer) ml/min Est GFR (Non-Af Amer) ml/min BUN/Creatinine Ratio (10-20) Glucose (70-99(Fasting)) mg/dl POC Glucose (70-99) mg/dl Calcium (8.5-10.1) mg/dl Magnesium (1.7-2.4) mg/dl Total Bilirubin (0.2-1.0) mg/dl AST (13-39) U/L ALT (7-52) U/L Alkaline Phosphatase (34-104) U/L Total Creatine Kinase (26-192) U/L Troponin I High Sens (0-14) pg/ml Total Protein (6.0-8.3) gm/dl Albumin (3.4-5.0) gm/dl Globulin (2.5-4.0) gm/dl Albumin/Globulin Ratio (0.9-2) TSH (0.300-4.500) uIu/ml Urine Color Dark Yellow Urine Appearance Clear (Clear) Urine pH 8.0 H (4.5-7.5) Ur Specific [place] 1.010 (1.000-1.030) Urine Protein Negative (Negative) Urine Glucose (UA) Negative (Negative) Urine Ketones Negative (Negative) Urine Blood Negative (Negative) Urine Nitrite Positive A (Negative) Urine Bilirubin Negative (Negative) Urine Urobilinogen Negative (Negative) Ur Leukocyte Esterase Negative (Negative) Urine WBC (Auto) 1-5 (0-5) /hpf Urine RBC (Auto) 0-4 (0-4) /hpf U Hyaline Cast (Auto) 0 (0-5) /lpf U Epithel Cells (Auto) 5-10 H (0-5) /lpf Urine Bacteria (Auto) Negative (Negative) Phenytoin 44.3 H* (10-20) mcg/ml SARS-CoV-2 (PCR) NEGATIVE (Negative) Influenza Type A (PCR) Negative (Neg) Influenza Type B (PCR) Negative (Neg) RSV (RT-PCR) Negative (Neg) 10/16/22 Range/Units 14:39 WBC (4.8-10.8) K/ul RBC (4.20-5.40) M/uL Hgb (12.0-16.0) g/dl Hct (37.0-47.0) % MCV (80.0-100.0) fL MCH (25.0-34.0) pg MCHC (32.0-36.0) g/dL RDW Std Deviation (36.4-46.3) fL RDW Coeff of Ana (11.5-14.5) % Plt Count (130-400) K/uL MPV (9.4-12.4) fL Immature Gran % (Auto) % Neut % (Auto) % Lymph % (Auto) % [place] % (Auto) % Eos % (Auto) % Baso % (Auto) % Neut # (Auto) (1.40-6.50) K/uL Lymph # (Auto) (1.2-3.4) K/uL [place] # (Auto) (0.11-0.59) K/uL Eos # (Auto) (0-0.50) K/uL Baso # (Auto) (0-0.2) K/uL Immature Gran # (Auto) (0.01-0.20) K/uL Sodium (136-145) mmol/L Potassium (3.5-5.1) mmol/L Chloride (98-107) mmol/L Carbon Dioxide (21-32) mmol/L Anion Gap (3-11) BUN (6-23) mg/dl Creatinine (0.6-1.2) mg/dl Est Cr Clr Drug Dosing ml/min Est GFR ( Amer) ml/min Est GFR (Non-Af Amer) ml/min BUN/Creatinine Ratio (10-20) Glucose (70-99(Fasting)) mg/dl POC Glucose 121 H (70-99) mg/dl Calcium (8.5-10.1) mg/dl Magnesium (1.7-2.4) mg/dl Total Bilirubin (0.2-1.0) mg/dl AST (13-39) U/L ALT (7-52) U/L Alkaline Phosphatase (34-104) U/L Total Creatine Kinase (26-192) U/L Troponin I High Sens (0-14) pg/ml Total Protein (6.0-8.3) gm/dl Albumin (3.4-5.0) gm/dl Globulin (2.5-4.0) gm/dl Albumin/Globulin Ratio (0.9-2) TSH (0.300-4.500) uIu/ml Urine Color Urine Appearance (Clear) Urine pH (4.5-7.5) Ur Specific [place] (1.000-1.030) Urine Protein (Negative) Urine Glucose (UA) (Negative) Urine Ketones (Negative) Urine Blood (Negative) Urine Nitrite (Negative) Urine Bilirubin (Negative) Urine Urobilinogen (Negative) Ur Leukocyte Esterase (Negative) Urine WBC (Auto) (0-5) /hpf Urine RBC (Auto) (0-4) /hpf U Hyaline Cast (Auto) (0-5) /lpf U Epithel Cells (Auto) (0-5) /lpf Urine Bacteria (Auto) (Negative) Phenytoin (10-20) mcg/ml SARS-CoV-2 (PCR) (Negative) Influenza Type A (PCR) (Neg) Influenza Type B (PCR) (Neg) RSV (RT-PCR) (Neg) Administered Medications Lactated Ringer's (Lr) 1,000 mls @ 100 mls/hr IV .Q10H ARIES Stop: 10/17/22 10:59 Last Admin: 10/16/22 15:18 Dose: 100 mls/hr Documented By: PAM Discontinued Medications Acetaminophen (Acetaminophen 500 Mg Tab) 1,000 mg PO NOW STA Stop: 10/16/22 13:51 Last Admin: 10/16/22 14:01 Dose: 1,000 mg Documented By: APM Sodium Chloride (Nss 1000ml) 1,000 mls @ 125 mls/hr IV .Q8H ARIES Stop: 10/16/22 19:59 Last Infusion: 10/16/22 15:16 Dose: 125 mls/hr Documented By: Admin: 10/16/22 12:42 Dose: 125 mls/hr Documented By: PAM Ceftriaxone Sodium 1,000 mg/ (Dextrose) 50 mls @ 100 mls/hr IV NOW STA Stop: 10/16/22 14:08 Last Infusion: 10/16/22 15:16 Dose: 0 mls/hr Documented By: Admin: 10/16/22 14:03 Dose: 100 mls/hr Documented By: PAM Imaging Data Radiologist's Impression: Cervical Spine CT 10/16/22 11:53 CT SCAN OF THE CERVICAL SPINE CLINICAL HISTORY: Fall COMPARISON STUDY: CT angiogram of the neck dated 11/13/2021. TECHNIQUE: CT scan of the cervical spine is performed from the skull base to the upper thoracic spine. Images are reviewed in the axial, sagittal, and coronal planes. IV contrast was not administered for this examination. A dose lowering technique was utilized adhering to the principles of ALARA. FINDINGS: Skeletal structures: The skeletal structures are osteopenic. There is no evidence of fracture or subluxation involving the cervical spine. Vertebral body height and alignment are maintained. Anterior osteophytes are seen throughout. The odontoid process and lateral masses are intact. The atlantoaxial articulation is preserved noting productive degenerative change. The spinous processes appear intact. There is moderate to advanced multilevel cervical spondylosis. Uncovertebral and facet arthropathy contribute to neural foraminal narrowing at most levels. Intervertebral discs: There is there is moderate disc space narrowing seen at all cervical levels., Greatest at C4-C5, C5-C6, and C6-C7 where there is associated endplate sclerosis Central canal: Posterior disc osteophyte complexes are seen at all cervical levels between C3-C4 and C6-C7. This likely contributes to multilevel acquired compromise of the central canal. Soft tissues: The prevertebral and paraspinous soft tissues are within normal limits. There is atherosclerotic calcification of the carotid bulbs. Calvarium: The visualized calvarium at the skull base appears intact. Brain parenchyma: Partially visualized brain parenchyma at the skull base is within normal limits. Sinuses and mastoids: The visualized paranasal sinuses are clear. The mastoid air cells are well pneumatized. Lung apices: Clear as visualized. IMPRESSION: 1. There is no evidence of fracture or subluxation involving the cervical spine. 2. Osteopenia and spondylotic change as above. ACT 112: Negative or not required by law. Electronically signed by: Connor Wright M.D. 10/16/2022 12:[address] 10/16/22 11:53 CT head/brain wo con CLINICAL HISTORY: fall Technique: Contiguous axial CT images of the head were acquired from the base of the skull to the vertex without intravenous contrast administration. Images were viewed in brain, subdural and bone windows. Automated dose lowering techniques and/or adjustment according to patient size were utilized for this exam. Comparison: Comparison is made to CT head 01/23/2022 Findings: The ventricles, basal cisterns, and cerebral sulci are normal. There is no acute intracranial hemorrhage or evidence of acute territorial infarction. Neither mass effect, shift of the midline structures, nor abnormal extra-axial fluid collections are shown. Imaged portions of the paranasal sinuses and mastoid air cells are clear. The orbits appear normal. There are no acute fractures of the calvaria or scalp swelling. Impression: No acute intracranial hemorrhage, no evidence of acute territorial infarction or other acute intracranial disease process. ACT 112: Negative or not required by law. Electronically signed by: Todd Burdick M.D. 10/16/2022 1:08 PM Chest X-Ray 10/16/22 14:04 XR chest 1V portable HISTORY: 86 years-old Female altered mental status acute chest trauma status post fall. COMPARISON: 11/13/2021 TECHNIQUE: AP view of the chest FINDINGS: Cardiac silhouette is enlarged. Atherosclerosis of the aorta. Ill-defined no dular left perihilar density is likely secondary to summation. Mild interstitial coarsening of the lung bases is similar to prior. No pneumothorax, large pleural effusion or overt pulmonary edema. Chronic blunting of the costophrenic angles is unchanged. IMPRESSION: Chronic findings without acute process. ACT 112: Negative or not required by law. The above report was generated using voice recognition software. It may contain grammatical, syntax or spelling errors. Electronically signed by: Alf Cortez M.D. 10/16/2022 2:31 PM Discharge Plan Visit Data Chief Complaint: Fall Stated Complaint: FALL YESETERDAY, HIT HEAD, ED Provider: Santiago Choi Discharge Problem: Fall, CHI (closed head injury), AMS (altered mental status), Dilantin toxicity Forms Stand Alone Forms: My [facility] [id number] Prescriptions Prescriptions: No Action metformin 500 mg tablet 500 mg PO BID Qty: 180 3RF atorvastatin 20 mg tablet 20 mg PO DAILY Qty: 90 3RF levothyroxine 25 mcg tablet 25 mcg PO DAILY Qty: 90 3RF magnesium oxide 400 mg (241.3 mg magnesium) tablet 400 mg PO HS Qty: 30 11RF levetiracetam 750 mg tablet 750 mg PO BID Qty: 180 3RF acetaminophen 325 mg Tablet 650 mg PO Q4H PRN (Reason: pain) Qty: 30 0RF cyanocobalamin (vitamin B-12) 1,000 mcg capsule 1,000 mcg PO DAILY Qty: 30 0RF sodium chloride 1,000 mg Tablet,Soluble 1,000 mg PO BID phenytoin sodium extended [Dilantin Extended] 100 mg capsule 100 mg PO BID Rx Instructions: 100 mg PO; Take 2 capsule in the AM and 2 capsules in the PM brand necessary diclofenac sodium [Voltaren Arthritis Pain] 1 % gel 2 g topical QID PRN (Reason: Pain) Rx Instructions: apply to single elbow, wrist or hand; for hand includes palm/fingers/back of hand Referrals Referrals: Francesca Tillman MD [Primary Care Provider] -
[2022-10-16 12:42] LABS: Basophils # (auto) 0.04 K/uL (0-0.2); Basophils % (auto) 0.5 %; Eosinophils # (auto) 0.15 K/uL (0-0.50); Hematocrit (blood only) 38.2 % (37.0-47.0); Hemoglobin 12.5 g/dl (12.0-16.0); Immature Granulocytes # (auto) 0.02 K/uL (0.01-0.20); Immature Granulocytes % (auto) 0.3 %; Lymphocytes # (auto) 2.27 K/uL (1.2-3.4); Lymphocytes % (auto) 29.9 %; Mean Corpuscular Hemoglobin 32.6 pg (25.0-34.0); Mean Corpuscular Hgb Conc 32.7 g/dL (32.0-36.0); Mean Corpuscular Volume 99.7 fL (80.0-100.0); Mean Platelet Volume 9.4 fL (9.4-12.4); Monocytes # (auto) 0.62 K/uL (0.11-0.59); Monocytes % (auto) 8.2 %; Neutrophils % (auto) 59.1 %; Platelet Count 250 K/uL (130-400); RDW Coefficient of Variation 13.5 % (11.5-14.5); RDW Standard Deviation 49.6 fL (36.4-46.3); Red Blood Count 3.83 M/uL (4.20-5.40)
[2022-10-16 12:47] LABS: Appearance Urine Clear (Clear); Bacteria Urine Automated Negative (Negative); Bilirubin Urine Negative (Negative); Blood Urine Negative (Negative); Cast Urine Automated 0 /lpf (0-5); Color Urine Dark Yellow; Glucose Urine UA Negative (Negative); Ketones Urine Negative (Negative); Leukocyte Esterase Urine Negative (Negative); Nitrite Urine Positive (Negative); Protein Urine Negative (Negative); RBC Urine Automated 0-4 /hpf (0-4); Urobilinogen Urine Negative (Negative)
[2022-10-16 12:53] LABS: Albumin Globulin Ratio 1.7 (0.9-2); Albumin Level 4.5 gm/dl (3.4-5.0); BUN Creatinine Ratio 14.3 (10-20); Bilirubin,Total 0.3 mg/dl (0.2-1.0); Calcium 9.3 mg/dl (8.5-10.1); Est GFR (African American) 95.5 ml/min; Est GFR (Non-African American) 82.4 ml/min; Globulin 2.7 gm/dl (2.5-4.0); Magnesium 1.5 mg/dl (1.7-2.4); Potassium 4.5 mmol/L (3.5-5.1); Total Protein 7.2 gm/dl (6.0-8.3)
--- NOTE | 2022-10-16 12:53 | CT Scan Report ---
CT SCAN OF THE CERVICAL SPINE CLINICAL HISTORY: Fall COMPARISON STUDY: CT angiogram of the neck dated 11/13/2021. TECHNIQUE: CT scan of the cervical spine is performed from the skull base to the upper thoracic spine . Images are reviewed in the axial, sagittal, and coronal planes. IV contrast was not administered fo r this examination. A dose lowering technique was utilized adhering to the principles of ALARA. FINDINGS: Skeletal structures: The skeletal structures are osteopenic. There is no evidence of fracture or subl uxation involving the cervical spine. Vertebral body height and alignment are maintained. Anterior os teophytes are seen throughout. The odontoid process and lateral masses are intact. The atlantoaxial a rticulation is preserved noting productive degenerative change. The spinous processes appear intact. There is moderate to advanced multilevel cervical spondylosis. Uncovertebral and facet arthropathy co ntribute to neural foraminal narrowing at most levels. Intervertebral discs: There is there is moderate disc space narrowing seen at all cervical levels., G reatest at C4-C5, C5-C6, and C6-C7 where there is associated endplate sclerosis Central canal: Posterior disc osteophyte complexes are seen at all cervical levels between C3-C4 and C6-C7. This likely contributes to multilevel acquired compromise of the central canal. Soft tissues: The prevertebral and paraspinous soft tissues are within normal limits. There is athero sclerotic calcification of the carotid bulbs. Calvarium: The visualized calvarium at the skull base appears intact. Brain parenchyma: Partially visualized brain parenchyma at the skull base is within normal limits. Sinuses and mastoids: The visualized paranasal sinuses are clear. The mastoid air cells are well pneu matized. Lung apices: Clear as visualized. IMPRESSION: 1. There is no evidence of fracture or subluxation involving the cervical spine. 2. Osteopenia and spondylotic change as above. ACT 112: Negative or not required by law. Electronically signed by: Connor Wright M.D. 10/16/2022 12:52 PM
[2022-10-16 12:57] LABS: Troponin I High Sensitivity 3.4 pg/ml (0-14)
--- NOTE | 2022-10-16 13:09 | CT Scan Report ---
CT head/brain wo con CLINICAL HISTORY: fall Technique: Contiguous axial CT images of the head were acquired from the base of the skull to the royal simona without intravenous contrast administration. Images were viewed in brain, subdural and bone [facility]. Automated dose lowering techniques and/or adjustment according to patient size were utilized for this exam. Comparison: Comparison is made to CT head 01/23/2022 Findings: The ventricles, basal cisterns, and cerebral sulci are normal. There is no acute intracranial hemorrh age or evidence of acute territorial infarction. Neither mass effect, shift of the midline structures , nor abnormal extra-axial fluid collections are shown. Imaged portions of the paranasal sinuses and mastoid air cells are clear. The orbits appear normal. There are no acute fractures of the calvaria or scalp swelling. Impression: No acute intracranial hemorrhage, no evidence of acute territorial infarction or other acute intracra nial disease process. ACT 112: Negative or not required by law. Electronically signed by: Todd Burdick M.D. 10/16/2022 1:08 PM
[2022-10-16] MEDS ORDERED: cefTRIAXone SODIUM 1,000 MG in DEXTROSE 5% AD-VAN 50 ML IV STA (13:39)
[2022-10-16] MEDS ORDERED: ACETAMINOPHEN 500 MG TAB PO STA (13:50)
[2022-10-16 14:23] LABS: Influenza A virus by PCR Negative (Neg); Influenza B virus by PCR Negative (Neg); RSV by PCR Negative (Neg); SARS CoV2 RNA(COVID-19) Ceph NEGATIVE (Negative)
--- NOTE | 2022-10-16 14:25 | History & Physical Report ---
Date of Service October 16, 2022 Assessment & Plan (1) AMS (altered mental status): Plan: -Admit to med/tele -The patient is currently afebrile, hemodynamically stable, and stable on RA -At this time the patient's AMS is most likely due to her current Dilantin toxicity with her current level of 44 -No signs of infection, not convinced she has a UTI at this time, she did receive a dose of ceftriaxone in the ED, will hold additional abx for now and monitor her urine culture -CT fo the head was negative for acute changes -Her sodium is 130 today, she has a history of hyponatremia and her levels typically run near 130, do not think this is causing her symptoms at this time -Spoke with poison control, will monitor her Dilantin level q4h until it is consistently trending down, monitor on tele -Neurology consult placed, spoke with Dr. Montez, appreciate his help, they will see the patient, recommends holding her Dilantin for now until they see her -Monitor on tele and pulse oximetry, bedrest for now, PT/OT consults when stable -Bedside dysphagia screen ordered, keep NPO for now until evaluated -Will continue with LR at 100 mL/hr x 2 bags for now -BL SCDs for DVT PPX -AM CBC, CMP, Mag, Dilantin level (2) Fall: Plan: -No acute trauma, see AMS (3) Dyslipidemia: Plan: -Continue statin (4) Hypothyroidism: Plan: -TSH WNL -Continue levothyroxine (5) Seizure disorder: Plan: -Stable -Hold Phenytoin level until she is evaluated by Neurology tomorrow -Continue BID PO keppra for now (6) Type 2 diabetes mellitus: Plan: -Hold metformin -Monitor BSG q6h while NPO -5 units lantus BID, correction factor of 50 and carb ratio of 15 -DM II diet if she passes dysphagia screen (7) Dilantin toxicity: Plan: -See AMS (8) Hyponatremia: Plan: -Stable -Continue BID NACL tabs -Will repeat a sodium level at 7pm tonight Plan The patient was discussed with Dr. Pickens at the time of the admission History of Present Illness Chief Complaint: AMS Primary Care Provider: Francesca Tillman MD Agata is an 86 year old female with a PMH significant for Seizure disorder on Keppra and Phenytoin, hypothyroidism, DM II, dyslipidemia, chronic hyponatremia, and GERD who presented to the [facility] ED on 10/16/22 with a chief complaint of AMS. In the ED the patient was found to be afebrile, hemodynamically stable, and stable on RA. Labs were remarkable for a CBC WNL, stable cr of 0.63 sodium of 130, chloride of 97, glucose of 129, mag of 1.5, alk phos of 132 otherwise stable LFTs, TSH WNL, UA nitrite positive otherwise not indicative of UTI, Phenytoin level of 44, and Covid 19/Influenza/RSV negative. CT of the head was read as "No acute intracranial hemorrhage, no evidence of acute territorial infarction or other acute intracranial disease process". CT of the cervical spine was read as "There is no evidence of fracture or subluxation involving the cervical spine. 2. Osteopenia and spondylotic change as above.". Prior to admission the patient was given one dose of Ceftriaxone, 1gm IV tylenol, and was started on NSS at 125 mL/hr. At the time of the exam the patient was resting comfortably in bed in no acute distress with her daughter sitting bedside, history was mainly obtained from her Daughter due to her current confusion. The patient's daughter states that the patient lives with her Son. The patient normally handles her own medications, he daughter does help to put them in daily containers but the patient takes her medications herself. They noticed the patient becoming increasingly more fatigued and confused over the past few days. At baseline she has ambulatory dysfunction and is a high fall risk. When alone she uses a wheelchair but will ambulate with a walker if family is at the home. Yesterday evening the patient fell while trying to transfer to her wheelchair, landing on her buttocks and hitting the back of her head. They deny the patient losing consciousness. She called out to her son who came and helped her up. Today the patient's daughter came to see her and noticed that she was significantly confused and very weak, prompting her daughter to bring the patient to the ED. They deny recent fevers, chills, changes in vision, hearing, taste, and smell, chest pain, SOB, abd pain, nausea, vomiting, diarrhea, new dysuria, hematuria, LE swelling, neck/back pain, Upper extremity pain, hip pain and LE pain. When asked about urinary symptoms, the patient states she experiences dysuria and urinary frequency. When asked how long she has been experiencing the symptoms for she states for the past year, her daughter confirmed. We discussed code status, the patient wishes to be a DNR/DNI and her daughter confirms this has previously been her wish. Per chart review, the patient has had previous episodes of Phenytoin toxicity in the past requiring Dr. Montero to decrease her dose. I called and spoke with Poison Control who recommended monitoring her Phenytoin level q4h until it starts to trend down. They recommended monitoring on tele and symptomatic treatment. Please refer to Dr. Pickens's attestation for any changes to the treatment plan. Allergies Allergy/AdvReac Type Severity Reaction Status Date / Time levofloxacin [From Levaquin] Allergy Severe Possible Verified 10/16/22 13:50 seizure peanut Allergy Mild SNEEZE, Verified 10/16/22 13:50 COUGH allopurinol [From Zyloprim] Allergy Unknown Unknown Verified 10/16/22 13:50 lorazepam Allergy Unknown Unknown Verified 10/16/22 13:50 nortriptyline Allergy Unknown Unknown Verified 10/16/22 13:50 Opioids - Morphine Analogues Allergy Unknown Unknown Verified 10/16/22 13:50 Penicillins Allergy Unknown Unknown Verified 10/16/22 13:50 Sulfa (Sulfonamide Allergy Unknown Unknown Verified 10/16/22 13:50 Antibiotics) risedronate sodium AdvReac Intermediate Intolerence Verified 10/16/22 13:50 [From Actonel] Home Medications Medication Instructions Recorded Confirmed Type acetaminophen 325 mg tablet 650 mg PO Q4H PRN pain #30 tabs 11/16/21 10/16/22 Rx cyanocobalamin (vitamin B-12) 1,000 mcg PO DAILY #30 caps 11/16/21 10/16/22 Rx 1,000 mcg capsule magnesium oxide 400 mg (241.3 mg 400 mg PO HS #30 tabs 12/07/21 10/16/22 Rx magnesium) tablet levetiracetam 750 mg tablet 750 mg PO BID #180 tabs 01/16/22 10/16/22 Rx metformin 500 mg tablet 500 mg PO BID #180 tabs 03/01/22 10/16/22 Rx atorvastatin 20 mg tablet 20 mg PO DAILY #90 tabs 05/22/22 10/16/22 Rx levothyroxine 25 mcg tablet 25 mcg PO DAILY #90 tabs 09/06/22 10/16/22 Rx diclofenac sodium 1 % topical gel 2 g topical QID PRN Pain 10/16/22 10/16/22 History (Voltaren Arthritis Pain) phenytoin sodium extended 100 mg 100 mg PO BID 10/16/22 10/16/22 History capsule (Dilantin Extended) sodium chloride 1,000 mg soluble 1,000 mg PO BID 10/16/22 10/16/22 History tablet Past Med/Surg History Medical History Acid reflux B12 deficiency Dyslipidemia Hiatal hernia History of stroke Hypothyroidism Idiopathic polyneuropathy Osteoarthritis Osteoporosis Seizure disorder Type 2 diabetes mellitus Surgical History H/O: hysterectomy (~1965) History of ankle surgery History of appendectomy (~1965) History of colonoscopy History of ERCP (07/29/20) History of open reduction and internal fixation (ORIF) procedure History of right cataract extraction History of surgery on left wrist History of tooth extraction S/P cholecystectomy (07/29/20) S/P endoscopic carpal tunnel release Family History Father Hypertension Mother Diabetes Myocardial infarction Brother Diabetes Lung disease Brother Diabetes Brother Diabetes Brother Diabetes Brother Diabetes Other No family history of adverse response to anesthesia Denies family history of Ovarian cancer Prostate cancer Breast cancer Colorectal cancer Social History Smoking Status: Never smoker Second Hand Exposure: No; Hx Alcohol Use: No Hx Substance Use: No Preferred Language: Sinhala Communication Ability: Effective Visual Impairment: No Limitations Hearing Ability: Hard of Hearing Computer Compositor Required: No Beliefs That Will Affect Care: None marital status: / Current Living Situation: Family Current Living Situation Comment: Lives with Son current occupational status: retired 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 How many Children do You have: 2 Feels Safe at Home: Yes Childhood Exposure to Second-Hand Smoke: Yes Diet Comment: Patient watches serving sizes and counts carefully Dental Care, Regularly: No Physical Activity Frequency: Daily Seatbelt Use: always Sunscreen Use: Yes (when she goes outside ) Gender Identity: Female Assistive Devices: Wheelchair Review of Systems Review of Systems: Denies current fever, chills, headache, changes in vision, hearing, taste, and smell, chest pain, SOB, cough, abdominal pain, nausea, vomiting, diarrhea, hematemesis, melena, dysuria, hematuria All systems have been reviewed and are otherwise negative. Physical Exam Physical Exam: Physical Exam: General: In no acute distress, stated age, well-nourished, good hygiene HEENT: Normocephalic, atraumatic, no scleral icterus, pupils around round, symmetrical, and reactive to light, dry mucus membranes, trachea midline, no thyromegaly Chest/Pulm: No respiratory distress, symmetrical chest expansion, clear breath sounds throughout Cardiac: RRR, no murmurs noted Abdomen: Negative for ascites and bruising, normoactive bowel sounds, soft, non-tender to palpation throughout Musculoskeletal: Symmetrical and without signs of acute trauma, upper and lower extremities with full ROM, no atrophy, spasticity, or flaccidity, negative tenderness to palpation of the head, neck, thoracic spine, lumbar spine, BL hips Extremities: Radial, dorsalis pedis, and posterior tibial pulses are intact and symmetrical, no edema noted in the BL LE's Skin: Warm, dry, no rashes , lesions, or scars noted Neuro: Alert and oriented to person, place, month, and president, no focal defects, CN II-XII tested and intact,no tremors noted Psych: No acute distress, calm and cooperative during the exam Results & Data Results & Data ([facility]) Vital Signs (Past 12 Hours) Vital Signs Temp Pulse Pulse Resp BP BP Pulse Ox 10/16/22 11:56 70 19 133/94 100 10/16/22 11:53 70 17 100 10/16/22 12:08 67 10/16/22 11:49 36.6 C 74 18 171/77 H 95 O2 Del Method 10/16/22 11:56 Room Air 10/16/22 11:53 Room Air 10/16/22 12:08 10/16/22 11:49 Room Air Laboratory Results Abnormal lab results 10/16/22 10/16/22 10/16/22 Range/Units 11:41 11:41 11:41 RBC 3.83 L (4.20-5.40) M/uL RDW Std Deviation 49.6 H (36.4-46.3) fL Swisher # (Auto) 0.62 H (0.11-0.59) K/uL Sodium 130 L (136-145) mmol/L Chloride 97 L (98-107) mmol/L Glucose 129 H (70-99(Fasting)) mg/dl POC Glucose (70-99) mg/dl Magnesium 1.5 L (1.7-2.4) mg/dl Alkaline Phosphatase 132 H (34-104) U/L Urine pH (4.5-7.5) Urine Nitrite (Negative) U Epithel Cells (Auto) (0-5) /lpf Phenytoin 44.3 H* (10-20) mcg/ml 10/16/22 10/16/22 Range/Units 11:54 14:39 RBC (4.20-5.40) M/uL RDW Std Deviation (36.4-46.3) fL Swisher # (Auto) (0.11-0.59) K/uL Sodium (136-145) mmol/L Chloride (98-107) mmol/L Glucose (70-99(Fasting)) mg/dl POC Glucose 121 H (70-99) mg/dl Magnesium (1.7-2.4) mg/dl Alkaline Phosphatase (34-104) U/L Urine pH 8.0 H (4.5-7.5) Urine Nitrite Positive A (Negative) U Epithel Cells (Auto) 5-10 H (0-5) /lpf Phenytoin (10-20) mcg/ml Diagnostic Findings Cervical Spine CT 10/16/22 11:53 CT SCAN OF THE CERVICAL SPINE CLINICAL HISTORY: Fall COMPARISON STUDY: CT angiogram of the neck dated 11/13/2021. TECHNIQUE: CT scan of the cervical spine is performed from the skull base to the upper thoracic spine. Images are reviewed in the axial, sagittal, and coronal planes. IV contrast was not administered for this examination. A dose lowering technique was utilized adhering to the principles of ALARA. FINDINGS: Skeletal structures: The skeletal structures are osteopenic. There is no evidence of fracture or subluxation involving the cervical spine. Vertebral body height and alignment are maintained. Anterior osteophytes are seen throughout. The odontoid process and lateral masses are intact. The atlantoaxial articulation is preserved noting productive degenerative change. The spinous processes appear intact. There is moderate to advanced multilevel cervical spondylosis. Uncovertebral and facet arthropathy contribute to neural foraminal narrowing at most levels. Intervertebral discs: There is there is moderate disc space narrowing seen at all cervical levels., Greatest at C4-C5, C5-C6, and C6-C7 where there is associated endplate sclerosis Central canal: Posterior disc osteophyte complexes are seen at all cervical levels between C3-C4 and C6-C7. This likely contributes to multilevel acquired compromise of the central canal. Soft tissues: The prevertebral and paraspinous soft tissues are within normal limits. There is atherosclerotic calcification of the carotid bulbs. Calvarium: The visualized calvarium at the skull base appears intact. Brain parenchyma: Partially visualized brain parenchyma at the skull base is within normal limits. Sinuses and mastoids: The visualized paranasal sinuses are clear. The mastoid air cells are well pneumatized. Lung apices: Clear as visualized. IMPRESSION: 1. There is no evidence of fracture or subluxation involving the cervical spine. 2. Osteopenia and spondylotic change as above. ACT 112: Negative or not required by law. Electronically signed by: Connor Wright M.D. 10/16/2022 12:[address] 10/16/22 11:53 CT head/brain wo con CLINICAL HISTORY: fall Technique: Contiguous axial CT images of the head were acquired from the base of the skull to the vertex without intravenous contrast administration. Images were viewed in brain, subdural and bone windows. Automated dose lowering techniques and/or adjustment according to patient size were utilized for this exam. Comparison: Comparison is made to CT head 01/23/2022 Findings: The ventricles, basal cisterns, and cerebral sulci are normal. There is no acute intracranial hemorrhage or evidence of acute territorial infarction. Neither mass effect, shift of the midline structures, nor abnormal extra-axial fluid collections are shown. Imaged portions of the paranasal sinuses and mastoid air cells are clear. The orbits appear normal. There are no acute fractures of the calvaria or scalp swelling. Impression: No acute intracranial hemorrhage, no evidence of acute territorial infarction or other acute intracranial disease process. ACT 112: Negative or not required by law. Electronically signed by: Todd Burdick M.D. 10/16/2022 1:08 PM Chest X-Ray 10/16/22 14:04 XR chest 1V portable HISTORY: 86 years-old Female altered mental status acute chest trauma status post fall. COMPARISON: 11/13/2021 TECHNIQUE: AP view of the chest FINDINGS: Cardiac silhouette is enlarged. Atherosclerosis of the aorta. Ill-defined nodular left perihilar density is likely secondary to summation. Mild interstitial coarsening of the lung bases is similar to prior. No pneumothorax, large pleural effusion or overt pulmonary edema. Chronic blunting of the costophrenic angles is unchanged. IMPRESSION: Chronic findings without acute process. ACT 112: Negative or not required by law. The above report was generated using voice recognition software. It may contain grammatical, syntax or spelling errors. Electronically signed by: Alf Cortez M.D. 10/16/2022 2:31 PM ECG Additional Comments: Poor data quality, interpretation may be adversely affected Normal sinus rhythm Nonspecific ST and T wave abnormality Abnormal ECG When compared with ECG of 13-NOV-2021 17:10, No significant change was found Supervising Physician Co-Signing Physician Notes I personally saw and examined the patient. I verified all villarreal points and agree with Rachid Hobson PA-C with the following exceptions and/or additions: 86 year old female presents to the ER with altered mental state. Increased confusion over a few days. Fell and hit the back of her head yesterday. O/E Alert and orientated x3, no facial droop, difficulty following finger with eyes but no diplopia, PERRL, bilateral mild choreiform movements, HS RRR, no murmurs, Chest CTAB, Abdo SNT A/P Phenytoin toxicity - suspect cause of altered mental state. Poison control contacted and phenytoin level to be taken q4h. Trending down. Consult neurology for consideration of alternative anti-seizure medication. Possible concussion - monitor for improvement, brain rest Hypomagnesemia - level 1.5. 2g IV replacement ordered. Repeat with AM labs. PG Care Time/CCT Total # of Minutes Spent Total Time Spent with Patient: Total time spent is greater than 50% in coordination of care (as documented) at patient's floor/unit and/or counseling patient: [place] [address] INT INP/OBS CARE MIN Patient Type Established Medical Decision Making High Complexity Diagnoses AMS (altered mental status) R41.82 Fall W19.XXXA Dyslipidemia E78.5 Hypothyroidism E03.9 Hypothyroidism type: acquired Seizure disorder G40.909 Type 2 diabetes mellitus E11.9 Dilantin toxicity T42.0X1A Encounter type: initial encounter Injury intent: accidental or unintentional Hyponatremia E87.1 (4) Hypothyroidism Hypothyroidism type: acquired Qualified Code(s): E03.9 - Hypothyroidism, unspecified (7) Dilantin toxicity Encounter type: initial encounter Injury intent: accidental or unintentional Qualified Code(s): T42.0X1A - Poisoning by hydantoin derivatives, accidental (unintentional), initial encounter
[2022-10-16] MEDS ORDERED: CARBOHYDRATES FOR HYPOGLYCEMIA PO PRN (14:26)
[2022-10-16] MEDS ORDERED: DEXTROSE 50% 50 ML SYRINGE IV PRN (14:26)
[2022-10-16] MEDS ORDERED: GLUCOSE 40% GEL 15 GM TUBE PO PRN (14:26)
[2022-10-16] MEDS ORDERED: GLUCOSE 10 TAB/TUBE PO PRN (14:26)
[2022-10-16] MEDS ORDERED: GLUCAGON FOR INJ 1 MG VIAL SQ PRN (14:26)
--- NOTE | 2022-10-16 14:32 | XRay Report ---
XR chest 1V portable HISTORY: 86 years-old Female altered mental status acute chest trauma status post fall. COMPARISON: 11/13/2021 TECHNIQUE: AP view of the chest FINDINGS: Cardiac silhouette is enlarged. Atherosclerosis of the aorta. Ill-defined nodular left perihilar dens ity is likely secondary to summation. Mild interstitial coarsening of the lung bases is similar to pr ior. No pneumothorax, large pleural effusion or overt pulmonary edema. Chronic blunting of the costop hrenic angles is unchanged. IMPRESSION: Chronic findings without acute process. ACT 112: Negative or not required by law. The above report was generated using voice recognition software. It may contain grammatical, syntax o r spelling errors. Electronically signed by: Alf Cortez M.D. 10/16/2022 2:31 PM
[2022-10-16] MEDS: LACTATED RINGER'S 1,000 ML IV SCH (15:18)
[2022-10-16] MEDS: INSULIN ASPART PER UNIT SC SCH ×2 (17:30→20:52)
[2022-10-16] MEDS: ACETAMINOPHEN 325 MG TAB PO PRN (20:09)
[2022-10-16] MEDS: SODIUM CHLORIDE 1 GM TABLET PO SCH (20:10)
[2022-10-16] MEDS: levETIRAcetam 250 MG TAB PO SCH (20:10)
[2022-10-16] MEDS ORDERED: LANTUS PER UNIT CHARGE SQ SCH (21:00)
[2022-10-16] MEDS: MAGNESIUM SULFATE / D5W 1 GM/100 ML BAG IV SCH (23:03)
[2022-10-17] MEDS: LACTATED RINGER'S 1,000 ML IV SCH (00:47)
[2022-10-17] MEDS: MAGNESIUM SULFATE / D5W 1 GM/100 ML BAG IV SCH (00:48)
[2022-10-17] MEDS ORDERED: ONDANSETRON INJ 2 MG/ML 2 ML VIAL IV PRN (00:55)
[2022-10-17] MEDS: LEVOTHYROXINE SODIUM 25 MCG TABLET PO SCH (05:48)
--- NOTE | 2022-10-17 06:19 | Electrocardiogram Report ---
Test Reason : Blood Pressure : / mmHG Vent. Rate : 064 BPM Atrial Rate : 064 BPM P-R Int : 144 ms QRS Dur : 084 ms QT Int : 430 ms P-R-T Axes : 069 -17 -08 degrees QTc Int : 443 ms Poor data quality, interpretation may be adversely affected Normal sinus rhythm Nonspecific ST and T wave abnormality Abnormal ECG When compared with ECG of 13-NOV-2021 17:10, No significant change was found Confirmed by Nabil Donaldson ([id number]) on 10/17/2022 6:19:00 AM Referred By: Confirmed By:Nabil Donaldson
[2022-10-17] MEDS: INSULIN ASPART PER UNIT SC SCH ×4 (08:51→20:37)
[2022-10-17] MEDS: ATORVASTATIN 20 MG TAB PO SCH (08:52)
[2022-10-17] MEDS: levETIRAcetam 250 MG TAB PO SCH ×2 (08:52→20:58)
[2022-10-17] MEDS: SODIUM CHLORIDE 1 GM TABLET PO SCH ×2 (08:52→20:58)
[2022-10-17] MEDS: ACETAMINOPHEN 325 MG TAB PO PRN (08:56)
--- NOTE | 2022-10-17 11:13 | Neurology Consultation ---
Date of Consultation October 17, 2022 Assessment & Plan (1) Dilantin toxicity: (2) CHI (closed head injury): (3) Idiopathic polyneuropathy: (4) AMS (altered mental status): (5) Seizure disorder: (6) History of stroke: Plan This patient has a lifelong history of primary generalized epilepsy on levetiracetam and phenytoin. Unfortunately her phenytoin level is markedly toxic which adds to her imbalance and fall. She had a fall hitting her occiput on October 15. She may have some mild concussive symptoms but much of what she displays is probably secondary to Dilantin toxicity. This will give her ataxia and gait disturbance. Patient had some mild confusion which has cleared by this morning. She has no significant encephalopathy or dementia currently. The patient has an idiopathic polyneuropathy, which in itself may be chronic Dilantin toxicity. The patient has a history of stroke 2 years ago, but I am uncertain of this. She certainly has small vessel ischemic disease on CT scan and MRI but the these lesions are old. Recommendations: 1. Hold Dilantin for now. 2. Check morning trough levels each morning and restart Dilantin at 100 mg twice daily when the level falls to about 20 3. consider having pharmacy go over all the patient's home meds as I am not certain she knows what she is supposed to be taking. 4. She was on 81 mg aspirin tablet in the past but this has been discontinued (uncertain reason). 5. Increase activity as able and use physical and occupational therapy consults 6. Consider social service consult to set up home health,so someone can keep an eye on her and make sure she is taking her medications correctly 7. Follow up with Dr. Montero in 2-3 weeks. She will need a trough Dilantin level 1 week after discharge. She will probably need more frequent Dilantin levels to make sure she does not straight too far from her range 8. Continue levetiracetam at 750 mg twice daily. 9. I see no need for an EEG or MRI of the brain at this time. Overall, I spent a total of 100 minutes with this case including review of records, review of MRI and CT films, direct evaluation the patient at bedside, and discussing the case with the patient and RN at bedside and Dr. Li, including differential diagnosis and treatment options. History of Present Illness Reason for Consultation: patient is an 86-year-old, who I was asked to see at the request of Jonathan Hobson PA-C, for neurologic evaluation regarding acute altered mental status. Requesting Physician: Jonathan Hobson PA-C Attending Physician: Timothy Li MD History of Present Illness This patient has a lifelong history of epilepsy diagnosed as generalized epilepsy, on phenytoin and levetiracetam for many years. She has had trouble with Dilantin toxicity in the past. Her last EEG was in June of 2016 and showed generalized spike discharges. An EEG in 2007 showed 4-6 hertz spike and wave activity of a generalized nature. Her most recent MRI was in June of 2016 and it showed mild generalized atrophy and mild old small vessel ischemic disease (I reviewed these films ). She has refused MRI since because it is too difficult for her to lay down and tolerate noise Her most recent seizure was in November of 2019. attempts were made to change her Dilantin to another medication but the patient refused. In November of 2021 the patient was admitted with a left lower extremity weakness. There was a concern of stroke versus lumbar spine radiculopathy. CT scans were unremarkable. She was initiated on 81 mg aspirin. In February of 2022 EMG and nerve conduction studies showed a mild underlying polyneuropathy and no radiculopathy. In April of 2022 was her last office visit and there was a concern about a left lumbosacral radiculopathy despite the negative EMG, the polyneuropathy, the seizure disorder, and her history of stroke as noted by old small vessel ischemia. She has been on various doses of Dilantin over time and her most recent Dilantin level was in November of 2021 at 15.4 ( Normal 10-20). Levetiracetam was 16 ( normal 12-46). The patient is currently on levetiracetam 750 mg twice daily and phenytoin 200 mg twice a day. In the chart says she is supposed to be on 100 mg twice a day but she is insistent that she takes 2 of the capsules twice a day. Patient tells me that she has fallen a couple times due to left leg collapsing. On October 15, her left leg gave out and she fell backwards hitting her occiput. There was no loss of consciousness. She had no dizziness, syncope, or palpitations. Afterwards she felt a little confused. This remained in the morning of October 16 and she came to the emergency room at 11:49 a.m., with a temperature 36.0, pulse 74 regular, respiratory rate 18, blood pressure 171/77, and O2 saturation 95%. She was somewhat confused but there was no focal findings on exam. CBC and Chem profile were largely unremarkable although sodium was 130, magnesium of 1.5, alk-phos 132 and glucose 129. TSH was normal at 0.77 urinalysis was normal. Dilantin level is 44.3 ( toxic ). This morning the level is 36.4 off of phenytoin. she apparently was not taking aspirin prior to admission. Currently she feels well as a mild dull, achy frontal headache. She has no other issues. She has chronic hearing loss particularly on the right. She does not feel confused. Allergies Allergy/AdvReac Type Severity Reaction Status Date / Time levofloxacin [From Levaquin] Allergy Severe Possible Verified 10/16/22 13:50 seizure peanut Allergy Mild SNEEZE, Verified 10/16/22 13:50 COUGH allopurinol [From Zyloprim] Allergy Unknown Unknown Verified 10/16/22 13:50 lorazepam Allergy Unknown Unknown Verified 10/16/22 13:50 nortriptyline Allergy Unknown Unknown Verified 10/16/22 13:50 Opioids - Morphine Analogues Allergy Unknown Unknown Verified 10/16/22 13:50 Penicillins Allergy Unknown Unknown Verified 10/16/22 13:50 Sulfa (Sulfonamide Allergy Unknown Unknown Verified 10/16/22 13:50 Antibiotics) risedronate sodium AdvReac Intermediate Intolerence Verified 10/16/22 13:50 [From Actonel] Home Medications Medication Instructions Recorded Confirmed Type acetaminophen 325 mg tablet 650 mg PO Q4H PRN pain #30 tabs 11/16/21 10/16/22 Rx cyanocobalamin (vitamin B-12) 1,000 mcg PO DAILY #30 caps 11/16/21 10/16/22 Rx 1,000 mcg capsule magnesium oxide 400 mg (241.3 mg 400 mg PO HS #30 tabs 12/07/21 10/16/22 Rx magnesium) tablet levetiracetam 750 mg tablet 750 mg PO BID #180 tabs 01/16/22 10/16/22 Rx metformin 500 mg tablet 500 mg PO BID #180 tabs 03/01/22 10/16/22 Rx atorvastatin 20 mg tablet 20 mg PO DAILY #90 tabs 05/22/22 10/16/22 Rx levothyroxine 25 mcg tablet 25 mcg PO DAILY #90 tabs 09/06/22 10/16/22 Rx diclofenac sodium 1 % topical gel 2 g topical QID PRN Pain 10/16/22 10/16/22 History (Voltaren Arthritis Pain) phenytoin sodium extended 100 mg 100 mg PO BID 10/16/22 10/16/22 History capsule (Dilantin Extended) sodium chloride 1,000 mg soluble 1,000 mg PO BID 10/16/22 10/16/22 History tablet Patient History Medical History Acid reflux B12 deficiency Carpal tunnel syndrome, right Dyslipidemia Gallstone pancreatitis H/O: CVA (cerebrovascular accident) Hiatal hernia History of stroke 20 YRS AGO Hypothyroidism Idiopathic polyneuropathy Osteoarthritis Osteoporosis Seizure disorder epilepsy, primary generalized seizure disorder--follows with Dr. 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- taking seizure meds- last seizure beginning of 2019 secondary to low phenytoin level in context of tx of infection- has had no interval seizures- clinically stable- follow up six months Type 2 diabetes mellitus Surgical History H/O: hysterectomy (~1965) History of ankle surgery x2--left d/t fracture History of appendectomy (~1965) History of colonoscopy History of ERCP (07/29/20) History of open reduction and internal fixation (ORIF) procedure left wrist--hardware removed History of right cataract extraction History of surgery on left wrist History of tooth extraction all top removed/most of bottom S/P cholecystectomy (07/29/20) S/P endoscopic carpal tunnel release 06/14/2021 Right wrist Family History Father Hypertension Mother Diabetes Myocardial infarction Brother Diabetes Lung disease Brother Diabetes Brother Diabetes Brother Diabetes Brother Diabetes Other No family history of adverse response to anesthesia Denies family history of Ovarian cancer Prostate cancer Breast cancer Colorectal cancer Social History Smoking Status: Never smoker Second Hand Exposure: No; Hx Alcohol Use: No Hx Substance Use: No Preferred Language: Sinhala Communication Ability: Effective Visual Impairment: No Limitations Hearing Ability: Hard of Hearing Contract Attorney Required: No Beliefs That Will Affect Care: None marital status: / Current Living Situation: Family Current Living Situation Comment: Lives with Son current occupational status: retired 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 How many Children do You have: 2 Feels Safe at Home: Yes Childhood Exposure to Second-Hand Smoke: Yes Diet Comment: Patient watches serving sizes and counts carefully Dental Care, Regularly: No Physical Activity Frequency: Daily Seatbelt Use: always Sunscreen Use: Yes (when she goes outside ) Gender Identity: Female Assistive Devices: Wheelchair Review of Systems Constitutional: no fever, no fatigue and no weakness Eyes: + worsening vision; no diplopia and no eye pain Ear, Nose, Mouth, Throat: no ear pain, no tinnitus, no hearing loss, no dizziness, no snoring, no hoarseness and no dysphagia Respiratory: no cough and no dyspnea Cardiovascular: no chest pain, no palpitations and no lightheadedness Gastrointestinal: no abdominal pain, no nausea and no vomiting Genitourinary: no dysuria, no urinary frequency and no urinary incontinence Musculoskeletal: no back pain, no neck pain, no radicular pain, no joint pain and no myalgia Integumentary: no rash and no lesions Neurologic: + gait abnormality, + numbness and + headache(s); no localized weakness, no generalized weakness, no tingling, no tremor(s), no abnormal movements, no abnormal speech, no confusion and no memory loss Psychiatric: no depression, no irritability, no anxiety, no difficulty concentrating, no confusion and no hallucinations Endocrine: no fatigue and no flushing Hematologic / Lymphatic: no easy bleeding and no easy bruising Allergy / Immunological: no urticaria and no problem reported Exam (Neuro) Physical Exam: The patient is right-handed. The patient is awake, alert, and attentive. Speech is normal without any aphasia or dysarthria. The patient can name objects, repeat phrases, and has normal spontaneous speech. Mentation and thought processes are intact, with orientation to person, place and time, and normal fund of knowledge. Attention and concentration are normal. Mood and affect are normal and appropriate. General appearance and grooming are normal. Short and long-term memory are intact. Pupils are 3 mm bilaterally and reactive to light. Extraocular eye muscles are intact without nystagmus. Visual acuity and visual pond seem normal grossly to confrontation. There are no deficits to sensation in the face in all 3 distributions of the fifth cranial nerve bilaterally. Corneal reflexes are positive bilaterally. Facial strength and symmetry was normal bilaterally. Hearing Is mildly decreased bilaterally. Palate moves well without asymmetry. There is normal sternocleidomastoid and trapezius (shoulder shrug) strength bilaterally. Tongue is midline with good strength bilaterally. Neck has a full range of motion without discomfort. There are no cervical bruits bilaterally. There are no cranial or ocular bruits. Cervical, thoracic, and lumbar spine are nontender to palpation. stance sitting on the edge of the bed with her feet dangling was reasonable. She could stand up on her own but her balance was poor feet together. She is very slow and cautious with steps. she needed the assistance of 2 people. With outstretched arms there is no drift. There are no resting, postural, or action tremors. There is very slight ataxia with finger to nose testing on the right. There is good facility in the hands. No other abnormal involuntary movements are noted. Motor strength is 5/5 diffusely in the arms bilaterally including deltoids, biceps, triceps, brachioradialis, wrist flexors and extensors, station engineer chief, and intrinsic hand muscles. Motor strength is 5/5 diffusely in the legs bilaterally including hip flexors, quadriceps, hamstrings, gastrocnemius, tibialis anterior, tibialis posterior, and Peroneii muscles. Toe extensors are normal and there is good bulk in the extensor digitorum brevis muscles bilaterally. The limbs have good tone without rigidity or spasticity. There is no atrophy n oted in the muscles. Muscle bulk is normal, there is no tenderness to palpation, no myotonia to percussion, and no fasciculations seen. Sensory examination is intact to touch and pin throughout all 4 limbs diffusely. Reflexes are 2/4 in the biceps, triceps, brachioradialis, and quadricepss tendons bilaterally. Achilles tendon reflexes were absent bilaterally. There is no clonus bilaterally. Toes are downgoing with plantar stimulation bilaterally. Peripheral pulses are present and of normal quality distally in all 4 limbs. There is no peripheral edema noted in the limbs. Results & Data ([facility]) Vital Signs (Past 12 Hours) Vital Signs Temp Pulse Pulse Resp BP Pulse Ox O2 Del Method 10/17/22 07:53 36.5 C 75 18 152/78 H 98 Room Air 10/17/22 07:17 65 10/17/22 02:58 36.7 C 68 20 134/84 93 Room Air 10/16/22 23:18 71 10/16/22 23:00 36.5 C 69 20 147/70 H 92 Room Air PG Care Time/CCT Total # of Minutes Spent Total Time Spent with Patient: Total time spent is greater than 50% in coordination of care (as documented) at patient's floor/unit and/or counseling patient: Coding Level of Care Code 40163 INT INP/OBS CARE 75MIN Diagnoses Dilantin toxicity T42.0X1A CHI (closed head injury) S09.90XA Idiopathic polyneuropathy G60.9 AMS (altered mental status) R41.82 Seizure disorder G40.909 History of stroke Z86.73 Time Spent (min) 100
[2022-10-17 11:38] LABS: Hematocrit (blood only) 33.8 % (37.0-47.0); Hemoglobin 11.2 g/dl (12.0-16.0); Mean Corpuscular Hemoglobin 32.9 pg (25.0-34.0); Mean Corpuscular Hgb Conc 33.1 g/dL (32.0-36.0); Mean Corpuscular Volume 99.4 fL (80.0-100.0); Mean Platelet Volume 9.4 fL (9.4-12.4); Platelet Count 230 K/uL (130-400); RDW Coefficient of Variation 13.5 % (11.5-14.5); RDW Standard Deviation 49.3 fL (36.4-46.3); White Blood Count 7.31 K/ul (4.8-10.8)
[2022-10-17 11:50] LABS: Albumin Globulin Ratio 1.6 (0.9-2); Bilirubin,Total 0.2 mg/dl (0.2-1.0); Calcium 8.7 mg/dl (8.5-10.1); Est GFR (African American) 100.4 ml/min; Est GFR (Non-African American) 86.7 ml/min; Globulin 2.5 gm/dl (2.5-4.0); Magnesium 1.8 mg/dl (1.7-2.4); Potassium 3.9 mmol/L (3.5-5.1); Total Protein 6.5 gm/dl (6.0-8.3)
--- NOTE | 2022-10-17 14:23 | Hospitalist Progress Note ---
Date of Service October 17, 2022 Assessment & Plan (1) AMS (altered mental status): Plan: -Acute encephalopathy, likely due to Dilantin toxicity -Now resolved, patient back to baseline mentation -CT head did not show any acute pathology -Serum Dilantin was 44 on admission, re check 36 -Will continue to hold Dilantin until serum level drops below 20 -There after, resume 100mg BID -Appreciate neurology recs -Will also consult social work regarding need for a home health agency that will help patient with meds (2) Fall: Plan: -No acute trauma, see AMS (3) Dyslipidemia: Plan: -Continue statin (4) Hypothyroidism: Plan: -TSH WNL -Continue levothyroxine (5) Seizure disorder: Plan: -Stable -Continue BID PO keppra for now (6) Type 2 diabetes mellitus: Plan: -Hold metformin -Monitor BSG q6h while NPO -5 units lantus BID, correction factor of 50 and carb ratio of 15 -DM II diet if she passes dysphagia screen (7) Dilantin toxicity: Plan: -See AMS (8) Hyponatremia: Plan: -Stable -Continue BID NACL tabs -Will repeat a sodium level at 7pm tonight Plan Hopefully d/c in the next 48 hrs Admission and Anticipated Discharge Date Admission Date: October 16, 2022 Subjective patient seen and examined, awake, alert and oriented x 3, denies any complaints Review of Systems Review of Systems: All systems reviewed are negative, apart from the ones contained in the history. Physical Exam Physical Exam: The patient is awake, alert and oriented 3, well developed and well nourished, normocephalic and atraumatic, lying in bed and in no acute distress. HEENT--PERRL, EOMI, mucous membranes and oropharynx mildly dry Neck--supple. No JVD. No bruits. Thyroid normal, trachea midline, no adenopathy. Heart--normal S1 and S2. No murmurs, rubs or gallops. Lungs--clear bilaterally, no respiratory distress, no accessory muscle use. Abdomen--normal bowel sounds and soft. Mild epigastric and left sided abdominal pain Extremities--no cyanosis or clubbing. No edema. Dermatologic--normal skin turgor, normal color, no abnormal lymph nodes, no rash. Neurologic--cranial nerves II through XII grossly intact. Rheumatologic--normal range of motion. Psychiatric--normal affect. Results & Data Results & Data ([facility]) Vital Signs (Past 12 Hours) Vital Signs Temp Pulse Pulse Resp BP Pulse Ox O2 Del Method 10/17/22 12:04 97.3 F L 95 H 16 133/72 93 Room Air 10/17/22 07:53 97.7 F 75 18 152/78 H 98 Room Air 10/17/22 07:17 65 10/17/22 02:58 98.1 F 68 20 134/84 93 Room Air PG Care Time/CCT Total # of Minutes Spent Total Time Spent with Patient: Total time spent is greater than 50% in coordination of care (as documented) at patient's floor/unit and/or counseling patient: Coding Level of Care Code 92487 SUB INP/OBS CARE 2/35MIN Diagnoses AMS (altered mental status) R41.82 Fall W19.XXXA Dyslipidemia E78.5 Hypothyroidism E03.9 Hypothyroidism type: acquired Seizure disorder G40.909 Type 2 diabetes mellitus E11.9 Dilantin toxicity T42.0X1A Encounter type: initial encounter Injury intent: accidental or unintentional Hyponatremia E87.1 Time Spent (min) 35 (4) Hypothyroidism Hypothyroidism type: acquired Qualified Code(s): E03.9 - Hypothyroidism, unspecified (7) Dilantin toxicity Encounter type: initial encounter Injury intent: accidental or unintentional Qualified Code(s): T42.0X1A - Poisoning by hydantoin derivatives, accidental (unintentional), initial encounter
[2022-10-18] MEDS: LEVOTHYROXINE SODIUM 25 MCG TABLET PO SCH ×2 (05:50→08:54)
[2022-10-18] MEDS: ACETAMINOPHEN 325 MG TAB PO PRN ×2 (06:12→21:51)
[2022-10-18 07:34] LABS: Albumin Globulin Ratio 1.6 (0.9-2); Albumin Level 3.9 gm/dl (3.4-5.0); BUN Creatinine Ratio 12.1 (10-20); Bilirubin,Total 0.3 mg/dl (0.2-1.0); Calcium 8.4 mg/dl (8.5-10.1); Creatinine Clr Calc Pharmacy 60.7 ml/min; Est GFR (African American) 98.1 ml/min; Est GFR (Non-African American) 84.6 ml/min; Globulin 2.5 gm/dl (2.5-4.0); Magnesium 1.8 mg/dl (1.7-2.4); Potassium 4.3 mmol/L (3.5-5.1); Total Protein 6.4 gm/dl (6.0-8.3)
[2022-10-18 07:39] LABS: Hematocrit (blood only) 32.4 % (37.0-47.0); Hemoglobin 11.2 g/dl (12.0-16.0); Mean Corpuscular Hemoglobin 33.3 pg (25.0-34.0); Mean Corpuscular Hgb Conc 34.6 g/dL (32.0-36.0); Mean Corpuscular Volume 96.4 fL (80.0-100.0); Mean Platelet Volume 9.5 fL (9.4-12.4); Platelet Count 245 K/uL (130-400); RDW Coefficient of Variation 13.6 % (11.5-14.5); RDW Standard Deviation 48.3 fL (36.4-46.3); Red Blood Count 3.36 M/uL (4.20-5.40); White Blood Count 6.82 K/ul (4.8-10.8)
[2022-10-18] MEDS: INSULIN ASPART PER UNIT SC SCH ×4 (08:18→21:31)
[2022-10-18] MEDS: SODIUM CHLORIDE 1 GM TABLET PO SCH ×2 (08:53→21:32)
[2022-10-18] MEDS: levETIRAcetam 250 MG TAB PO SCH ×2 (08:53→21:31)
[2022-10-18] MEDS: ATORVASTATIN 20 MG TAB PO SCH (08:54)
--- NOTE | 2022-10-18 11:25 | Neurology Progress Note ---
Date of Service October 18, 2022 Assessment & Plan Admission and Anticipated Discharge Date Admission Date: October 16, 2022 Subjective Dilantin level stable. no new recommendations at this point. follow up as recommended on prior note. will sign off. Results & Data ([facility]) Vital Signs (Past 12 Hours) Vital Signs Temp Pulse Pulse Resp BP Pulse Ox O2 Del Method 10/18/22 07:10 36.5 C 73 20 118/67 95 Room Air 10/18/22 07:10 84 10/18/22 03:00 36.5 C 70 20 138/78 93 Room Air
--- NOTE | 2022-10-18 11:26 | Neurology Progress Note ---
Date of Service October 18, 2022 Assessment & Plan (1) Dilantin toxicity: Plan Dilantin level stable now. no new recommendations. follow up as recommended. will sign off. Admission and Anticipated Discharge Date Admission Date: October 16, 2022 Results & Data ([facility]) Vital Signs (Past 12 Hours) Vital Signs Temp Pulse Pulse Resp BP Pulse Ox O2 Del Method 10/18/22 07:10 36.5 C 73 20 118/67 95 Room Air 10/18/22 07:10 84 10/18/22 03:00 36.5 C 70 20 138/78 93 Room Air
--- NOTE | 2022-10-18 13:32 | Hospitalist Progress Note ---
Date of Service October 18, 2022 Assessment & Plan (1) AMS (altered mental status): Plan: -Metabolic encephalopathy due to phenytoin toxicity -Now resolved, patient back to baseline mentation -CT head did not show any acute pathology -Serum Dilantin was 44 on admission, re check 22.5 -Will continue to hold Dilantin until serum level drops below 20 -There after, resume 100mg BID as recommended by neurology -Appreciate neurology recs -Will also consult social work regarding need for a home health agency that will help patient with meds (2) Fall: Plan: -No acute trauma, see AMS (3) Dyslipidemia: Plan: -Continue statin (4) Hypothyroidism: Plan: -TSH WNL -Continue levothyroxine (5) Seizure disorder: Plan: -Stable -Continue BID PO keppra for now (6) Type 2 diabetes mellitus: Plan: -Hold metformin -Monitor BSG q6h while NPO -5 units lantus BID, correction factor of 50 and carb ratio of 15 -DM II diet if she passes dysphagia screen (7) Dilantin toxicity: Plan: -See AMS (8) Hyponatremia: Plan: -Stable -Continue BID NACL tabs -Will repeat a sodium level at 7pm tonight Plan Hopefully d/c in the next 24 hrs. daughter updated Admission and Anticipated Discharge Date Admission Date: October 16, 2022 Subjective patient seen and examined, no new complaints Review of Systems Review of Systems: All systems reviewed are negative, apart from the ones contained in the history. Physical Exam Physical Exam: The patient is awake, alert and oriented 3, well developed and well nourished, normocephalic and atraumatic, lying in bed and in no acute distress. HEENT--PERRL, EOMI, mucous membranes and oropharynx mildly dry Neck--supple. No JVD. No bruits. Thyroid normal, trachea midline, no adenopathy. Heart--normal S1 and S2. No murmurs, rubs or gallops. Lungs--clear bilaterally, no respiratory distress, no accessory muscle use. Abdomen--normal bowel sounds and soft. Mild epigastric and left sided abdominal pain Extremities--no cyanosis or clubbing. No edema. Dermatologic--normal skin turgor, normal color, no abnormal lymph nodes, no rash. Neurologic--cranial nerves II through XII grossly intact. Rheumatologic--normal range of motion. Psychiatric--normal affect. Results & Data Results & Data ([facility]) Vital Signs (Past 12 Hours) Vital Signs Temp Pulse Pulse Resp BP Pulse Ox O2 Del Method 10/18/22 11:43 99.1 F 75 20 129/75 97 Room Air 10/18/22 07:10 97.7 F 73 20 118/67 95 Room Air 10/18/22 07:10 84 10/18/22 03:00 97.7 F 70 20 138/78 93 Room Air PG Care Time/CCT Total # of Minutes Spent Total Time Spent with Patient: Total time spent is greater than 50% in coordination of care (as documented) at patient's floor/unit and/or counseling patient: Coding Level of Care Code 31357 SUB INP/OBS CARE 2/35MIN Diagnoses AMS (altered mental status) R41.82 Fall W19.XXXA Dyslipidemia E78.5 Hypothyroidism E03.9 Hypothyroidism type: acquired Seizure disorder G40.909 Type 2 diabetes mellitus E11.9 Dilantin toxicity T42.0X1A Encounter type: initial encounter Injury intent: accidental or unintentional Hyponatremia E87.1 Time Spent (min) 35 (4) Hypothyroidism Hypothyroidism type: acquired Qualified Code(s): E03.9 - Hypothyroidism, unspecified (7) Dilantin toxicity Encounter type: initial encounter Injury intent: accidental or unintentional Qualified Code(s): T42.0X1A - Poisoning by hydantoin derivatives, accidental (unintentional), initial encounter
[2022-10-19] MEDS: ACETAMINOPHEN 325 MG TAB PO PRN (02:59)
[2022-10-19 06:36] LABS: Hematocrit (blood only) 32.7 % (37.0-47.0); Hemoglobin 11.6 g/dl (12.0-16.0); Mean Corpuscular Hemoglobin 33.7 pg (25.0-34.0); Mean Corpuscular Hgb Conc 35.5 g/dL (32.0-36.0); Mean Corpuscular Volume 95.1 fL (80.0-100.0); Mean Platelet Volume 9.3 fL (9.4-12.4); Platelet Count 249 K/uL (130-400); RDW Coefficient of Variation 13.6 % (11.5-14.5); RDW Standard Deviation 47.3 fL (36.4-46.3); Red Blood Count 3.44 M/uL (4.20-5.40)
[2022-10-19 06:51] LABS: Albumin Globulin Ratio 1.5 (0.9-2); Albumin Level 3.8 gm/dl (3.4-5.0); BUN Creatinine Ratio 15.1 (10-20); Bilirubin,Total 0.2 mg/dl (0.2-1.0); Calcium 8.4 mg/dl (8.5-10.1); Creatinine Clr Calc Pharmacy 66.5 ml/min; Est GFR (African American) 101.1 ml/min; Est GFR (Non-African American) 87.2 ml/min; Globulin 2.5 gm/dl (2.5-4.0); Magnesium 1.7 mg/dl (1.7-2.4); Potassium 4.5 mmol/L (3.5-5.1); Total Protein 6.3 gm/dl (6.0-8.3)
[2022-10-19] MEDS: INSULIN ASPART PER UNIT SC SCH ×2 (09:48→12:11)
[2022-10-19] MEDS: ATORVASTATIN 20 MG TAB PO SCH (09:51)
[2022-10-19] MEDS: levETIRAcetam 250 MG TAB PO SCH (09:51)
[2022-10-19] MEDS: SODIUM CHLORIDE 1 GM TABLET PO SCH (10:10)
--- NOTE | 2022-10-19 12:29 | Discharge Summary ---
Date of Service October 19, 2022 Admission HPI Per Admitting Provider Agata is an 86 year old female with a PMH significant for Seizure disorder on Keppra and Phenytoin, hypothyroidism, DM II, dyslipidemia, chronic hyponatremia, and GERD who presented to the [facility] ED on 10/16/22 with a chief complaint of AMS. In the ED the patient was found to be afebrile, hemodynamically stable, and stable on RA. Labs were remarkable for a CBC WNL, stable cr of 0.63 sodium of 130, chloride of 97, glucose of 129, mag of 1.5, alk phos of 132 otherwise stable LFTs, TSH WNL, UA nitrite positive otherwise not indicative of UTI, Phenytoin level of 44, and Covid 19/Influenza/RSV negative. CT of the head was read as "No acute intracranial hemorrhage, no evidence of acute territorial infarction or other acute intracranial disease process". CT of the cervical spine was read as "There is no evidence of fracture or subluxation involving the cervical spine. 2. Osteopenia and spondylotic change as above.". Prior to admission the patient was given one dose of Ceftriaxone, 1gm IV tylenol, and was started on NSS at 125 mL/hr. At the time of the exam the patient was resting comfortably in bed in no acute distress with her daughter sitting bedside, history was mainly obtained from her Daughter due to her current confusion. The patient's daughter states that the patient lives with her Son. The patient normally handles her own medications, he daughter does help to put them in daily containers but the patient takes her medications herself. They noticed the patient becoming increasingly more fatigued and confused over the past few days. At baseline she has ambulatory dysfunction and is a high fall risk. When alone she uses a wheelchair but will ambulate with a walker if family is at the home. Yesterday evening the patient fell while trying to transfer to her wheelchair, landing on her buttocks and hitting the back of her head. They deny the patient losing consciousness. She called out to her son who came and helped her up. Today the patient's daughter came to see her and noticed that she was significantly confused and very weak, prompting her daughter to bring the patient to the ED. They deny recent fevers, chills, changes in vision, hearing, taste, and smell, chest pain, SOB, abd pain, nausea, vomiting, diarrhea, new dysuria, hematuria, LE swelling, neck/back pain, Upper extremity pain, hip pain and LE pain. When asked about urinary symptoms, the patient states she experiences dysuria and urinary frequency. When asked how long she has been experiencing the symptoms for she states for the past year, her daughter confirmed. We discussed code status, the patient wishes to be a DNR/DNI and her daughter confirms this has previously been her wish. Per chart review, the patient has had previous episodes of Phenytoin toxicity in the past requiring Dr. Montero to decrease her dose. I called and spoke with Poison Control who recommended monitoring her Phenytoin level q4h until it starts to trend down. They recommended monitoring on tele and symptomatic treatment. Principal Diagnosis acute metabolic encephalopathy due to phenytoin toxicity Discharge Exam The patient is awake, alert and oriented 3, well developed and well nourished, normocephalic and atraumatic, lying in bed and in no acute distress. HEENT--PERRL, EOMI, mucous membranes and oropharynx mildly dry Neck--supple. No JVD. No bruits. Thyroid normal, trachea midline, no adenopathy. Heart--normal S1 and S2. No murmurs, rubs or gallops. Lungs--clear bilaterally, no respiratory distress, no accessory muscle use. Abdomen--normal bowel sounds and soft. Mild epigastric and left sided abdominal pain Extremities--no cyanosis or clubbing. No edema. Dermatologic--normal skin turgor, normal color, no abnormal lymph nodes, no rash. Neurologic--cranial nerves II through XII grossly intact. Rheumatologic--normal range of motion. Psychiatric--normal affect. Discharge Data Allergies Allergy/AdvReac Type Severity Reaction Status Date / Time levofloxacin [From Levaquin] Allergy Severe Possible Verified 10/16/22 13:50 seizure peanut Allergy Mild SNEEZE, Verified 10/16/22 13:50 COUGH allopurinol [From Zyloprim] Allergy Unknown Unknown Verified 10/16/22 13:50 lorazepam Allergy Unknown Unknown Verified 10/16/22 13:50 nortriptyline Allergy Unknown Unknown Verified 10/16/22 13:50 Opioids - Morphine Analogues Allergy Unknown Unknown Verified 10/16/22 13:50 Penicillins Allergy Unknown Unknown Verified 10/16/22 13:50 Sulfa (Sulfonamide Allergy Unknown Unknown Verified 10/16/22 13:50 Antibiotics) risedronate sodium AdvReac Intermediate Intolerence Verified 10/16/22 13:50 [From Actonel] Consultations 10/16/22 13:51 ED Decision to Admit Stat 10/16/22 15:02 Consult Neurology Routine Ordered Studies 10/16/22 11:53 CT cervical spine wo con Stat CT head/brain wo con Stat Hospital Course (1) AMS (altered mental status): -Metabolic encephalopathy due to phenytoin toxicity -Now resolved, patient back to baseline mentation -CT head did not show any acute pathology -Serum Dilantin was 44 on admission, re check 21 -Will resume 100mg BID as recommended by neurology -Appreciate neurology recs -Will also consult social work regarding need for a home health agency that will help patient with meds (2) Fall: -No acute trauma, see AMS (3) Dyslipidemia: -Continue statin (4) Hypothyroidism: -TSH WNL -Continue levothyroxine (5) Seizure disorder: -Stable -Continue BID PO keppra for now (6) Type 2 diabetes mellitus: -Hold metformin -Monitor BSG q6h while NPO -5 units lantus BID, correction factor of 50 and carb ratio of 15 -DM II diet if she passes dysphagia screen (7) Dilantin toxicity: -See AMS (8) Hyponatremia: -Stable -Continue BID NACL tabs -Will repeat a sodium level at 7pm tonight Plan d/c home Total Time Total Time Spent Total Time Spent (In Minutes): 35 Discharge Plan Discharge Items Patient Disposition: Home - Home Health Services Reason For Visit: AMS Discharge Diagnosis: acute metabolic encephalopathy-resolved Activity: Resume your previous activity Non-emergency contact: Primary Care Provider and Neurologist Call non-emergency contact if: you have any medication questions Follow-up/Referrals: Francesca Tillman MD [Primary Care Provider] - 10/30/22 2:00 pm Diet: Regular Addtl Attending Provider Instructions: please make appointment to follow up with your regular PCP and neurologist Please have your PCP check your Dilantin level in 1 week Please let home health help you with your medications Pending Studies at Discharge: No Stand-Alone Forms: My [employer], Smoking Cessation Medications and DC Order Prescriptions: Continued metformin 500 mg tablet 500 mg PO BID Qty: 180 3RF atorvastatin 20 mg tablet 20 mg PO DAILY Qty: 90 3RF levothyroxine 25 mcg tablet 25 mcg PO DAILY Qty: 90 3RF magnesium oxide 400 mg (241.3 mg magnesium) tablet 400 mg PO HS Qty: 30 11RF levetiracetam 750 mg tablet 750 mg PO BID Qty: 180 3RF acetaminophen 325 mg Tablet 650 mg PO Q4H PRN (Reason: pain) Qty: 30 0RF cyanocobalamin (vitamin B-12) 1,000 mcg capsule 1,000 mcg PO DAILY Qty: 30 0RF sodium chloride 1,000 mg Tablet,Soluble 1,000 mg PO BID phenytoin sodium extended [Dilantin Extended] 100 mg capsule 100 mg PO BID Rx Instructions: 100 mg PO; Take 2 capsule in the AM and 2 capsules in the PM brand necessary diclofenac sodium [Voltaren Arthritis Pain] 1 % gel 2 g topical QID PRN (Reason: Pain) Rx Instructions: apply to single elbow, wrist or hand; for hand includes palm/fingers/back of hand Discharge Orders: Discharge Order (Routine); Ordered 10/19/22 Ordered By: Timothy Li Admission Data Admit Date/Time: 10/16/22 14:25 Attending Provider: Timothy Li Admit Provider: Jonathan Pickens Primary Care Provider: Francesca Tillman Other Providers: Jonathan Pickens ; Juan Carlos Montez ; [place] Other Interventions: Discharge Summary Assessment (RN) Last Done: 10/19/22 11:52 Coding Level of Care Code 54366 INP/OBS DISCH >30 MIN Diagnoses AMS (altered mental status) R41.82 Fall W19.XXXA Dyslipidemia E78.5 Hypothyroidism E03.9 Hypothyroidism type: acquired Seizure disorder G40.909 Type 2 diabetes mellitus E11.9 Dilantin toxicity T42.0X1A Encounter type: initial encounter Injury intent: accidental or unintentional Hyponatremia E87.1 Time Spent (min) 35
== END 2022-10-19 12:54 | disposition home health service (06) | DRG 917 ==
LOC: ED 11:33 → SUATTDRO 14:25 → 2N 14:25

== ENCOUNTER 2022-10-25 14:15 | Inpatient (IN) ==
--- NOTE | 2022-10-25 16:03 | CT Scan Report ---
CT OF THE HEAD WITHOUT CONTRAST CLINICAL HISTORY: Confusion. COMPARISON STUDY: Head CTs January 23, 2022 and October 16, 2022. CT DOSE: 1311.06 mGy.cm TECHNIQUE: Helical axial images of the head were obtained without IV contrast. Automated exposure con trol was utilized for the study. A dose lowering technique was utilized adhering to the principles o f ALARA. FINDINGS: This study is mildly compromised by motion artifact. No acute intracranial hemorrhage, midl ine shift or mass effect is present. The ventricular system is unremarkable. The basal cisterns are p atent. No extra-axial collections are present. There are no findings to suggest acute dural sinus thr ombosis or acute territorial infarct. No significant calvarial abnormalities are present. Scattered w keturah matter hypodensities are unchanged. IMPRESSION: No acute intracranial findings. No change in appearance of the brain. ACT 112: Negative or not required by law. Electronically signed by: Migel Tillman M.D. 10/25/2022 4:01 PM
--- NOTE | 2022-10-25 17:25 | Emergency Department Note ---
Impression & Plan Altered mental status, Anemia, Dilantin level too low, Seizure ED Provider Note NAME: CARMEN SINHA AGE: 86 SEX: F : 1935 ARRIVES VIA: Walk-In INFORMANT: [Patient][family] ED PROVIDER(S): [Connor Kong MD] CHIEF COMPLAINT: Confusion HISTORY OF PRESENT ILLNESS: The patient is an 86-year-old female who left the hospital 6 days ago. She was admitted for confusion secondary to a high Dilantin level. She has had a decreased appetite and has been a bit weak the last 24 hours. Today, she was confused. She does not want to answer questions, she acts like people are not a round her. She was drying her hands in the bathroom for 10 minutes straight. Family is concerned that she may have a high Dilantin level once again. There has been no cough or congestion. No shortness of breath. No complaints of pain, no vomiting or diarrhea, no fever. The patient is given her medications by her family, they do not think that she could have taken extra medication accidentally. The patient had her Dilantin level decreased from 200 mg twice a day to 100 mg twice a day at discharge. PMHx/PSHx: See Below SOCIAL HISTORY: See Below. PHYSICAL EXAM: GENERAL: Patient is in no acute distress. HEENT: No acute trauma, normocephalic atraumatic, mucous membranes moist, no nasal congestion. NECK: No stridor, no adenopathy, no meningismus, trachea is midline. LUNGS: Clear to auscultation bilaterally, no wheeze, no rhonchi, breath sounds equal. HEART: Without murmurs gallops or rubs, regular rate and rhythm. ABDOMEN: Soft, nontender, bowel sounds positive, no peritonitis. EXTREMITIES: No cyanosis or edema, full range of motion of all the joints without pain or difficulty, no signs for acute trauma. NEUROLOGIC: Awake, currently will not answer questions. Does move all extremities. SKIN: No rash, no jaundice, no diaphoresis. DIFFERENTIAL DIAGNOSIS: Metabolic encephalopathy, stroke, intracranial bleeding, UTI, infection, liver or renal failure, dehydration, Dilantin toxicity, among others. EMERGENCY DEPARTMENT COURSE/PROCEDURES: Prior/Outside records reviewed: Recent discharge summary. ECG per my interpretation: Indication was possible stroke. The ECG shows what appears to be a normal sinus rhythm with a rate of 65. There is significant baseline artifact. There is no obvious ST elevation, no PVCs. The QTc is 416. Continuous Cardiac Monitoring per my interpretation: An order was placed for continuous cardiac monitoring. The monitor shows a rate of 68 with normal sinus rhythm. Critical Care Note: I have personally spent 46 minutes of critical care time in the direct management of this patient. This includes bedside care, int erpretation of diagnostic studies, and testing, discussion with consultants, patient, and family members, and other required patient management activities. This 46 minutes is in excess of all separately billable procedures. MEDICAL DECISION MAKING: There is no leukocytosis. A mild anemia was seen. The patient carries a history of anemia although, today's value was slightly lower than recent testing. There was a normal platelet count. No coagulopathy. No renal failure. Lactic acid level was not not elevated making sepsis less likely. Magnesium was low at 1.5. No concerning liver enzyme elevation. Ammonia level was not elevated. The patient appeared to be in a euthyroid state. ECG shows a normal sinus rhythm, no obvious ST elevation. Cardiac enzyme testing x1 was not consistent with acute cardiac injury. COVID, influenza and RSV test were negat christina. Dilantin level was subtherapeutic. Brain CT showed no acute bleed or mass effect. Chest x-ray did not show pneumonia or CHF per my review. Urinalysis result is currently pending. Patient received IV saline, 500 cc, she was given IV magnesium. She received a dose of IV fosphenytoin, 500 mg of fosphenytoin equivalents. She was given 1 mg of IV Ativan. The patient did have a seizure. I was called to the room. This was short-lived and tonic-clonic. She had a another seizure event several minutes after the first. The first event broke spontaneously, the second event broke with IV A tivan. I suspect the patient's mental status issues are secondary to the seizures. Her Dilantin level has drifted too low. I did speak with the family, I spoke with case management, the on-call corwin storey was consulted as admission is warranted. Of note, no further seizure activity noted after the administration of the IV fosphenytoin. DISPOSITION: Patient's presentation and findings warrant a hospital stay. Past Med/Surg History Medical History Acid reflux B12 deficiency Carpal tunnel syndrome, right Dyslipidemia Gallstone pancreatitis H/O: CVA (cerebrovascular accident) Hiatal hernia History of stroke 20 YRS AGO Hypothyroidism Idiopathic polyneuropathy Osteoarthritis Osteoporosis Seizure disorder epilepsy, primary generalized seizure disorder--follows with Dr. 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- taking seizure meds- last seizure beginning of 2019 secondary to low phenytoin level in context of tx of infection- has had no interval seizures- clinically stable- follow up six months Type 2 diabetes mellitus Surgical History H/O: hysterectomy (~1965) History of ankle surgery x2--left d/t fracture History of appendectomy (~1965) History of colonoscopy History of ERCP (07/29/20) History of open reduction and internal fixation (ORIF) procedure left wrist--hardware removed History of right cataract extraction History of surgery on left wrist History of tooth extraction all top removed/most of bottom S/P cholecystectomy (07/29/20) S/P endoscopic carpal tunnel release 06/14/2021 Right wrist Family History Father Hypertension Mother Diabetes Myocardial infarction Brother Diabetes Lung disease Brother Diabetes Brother Diabetes Brother Diabetes Brother Diabetes Other No family history of adverse response to anesthesia Denies family history of Ovarian cancer Prostate cancer Breast cancer Colorectal cancer Social History Smoking Status: Never smoker Second Hand Exposure: No; Hx Alcohol Use: No Hx Substance Use: No Preferred Language: Swedish Communication Ability: Effective Visual Impairment: No Limitations Hearing Ability: Hard of Hearing Dental Laboratory Technology Teacher Required: No Beliefs That Will Affect Care: None marital status: / Current Living Situation: Family Current Living Situation Comment: Lives with Son current occupational status: retired 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 How many Children do You have: 2 Feels Safe at Home: Yes Childhood Exposure to Second-Hand Smoke: Yes Diet Comment: Patient watches serving sizes and counts carefully Dental Care, Regularly: No Physical Activity Frequency: Daily Seatbelt Use: always Sunscreen Use: Yes (when she goes outside ) Gender Identity: Female Assistive Devices: Cane, Walker and Wheelchair Allergies Allergies Allergy/AdvReac Type Severity Reaction Status Date / Time levofloxacin [From Levaquin] Allergy Severe Possible Verified 10/25/22 17:56 seizure peanut Allergy Intermediate SNEEZE, Verified 10/25/22 17:56 COUGH allopurinol [From Zyloprim] Allergy Unknown Unknown Verified 10/25/22 17:56 lorazepam Allergy Unknown Unknown Verified 10/25/22 17:56 nortriptyline Allergy Unknown Unknown Verified 10/25/22 17:56 Opioids - Morphine Analogues Allergy Unknown Unknown Verified 10/25/22 17:56 Penicillins Allergy Unknown Unknown Verified 10/25/22 17:56 Sulfa (Sulfonamide Allergy Unknown Unknown Verified 10/25/22 17:56 Antibiotics) risedronate sodium AdvReac Intermediate Intolerence Verified 10/25/22 17:56 [From Actonel] Home Meds Home Medications Medication Instructions Recorded Confirmed diclofenac sodium 1 % topical gel 2 g topical QID PRN Pain 10/16/22 10/25/22 (Voltaren Arthritis Pain) phenytoin sodium extended 100 mg 100 mg PO BID 10/16/22 10/25/22 capsule (Dilantin Extended) sodium chloride 1,000 mg soluble 1,000 mg PO BID 10/16/22 10/25/22 tablet Previous Rx's Medication Instructions Recorded acetaminophen 325 mg tablet 650 mg PO Q4H PRN pain #30 tabs 11/16/21 cyanocobalamin (vitamin B-12) 1,000 mcg PO DAILY #30 caps 11/16/21 1,000 mcg capsule magnesium oxide 400 mg (241.3 mg 400 mg PO HS #30 tabs 12/07/21 magnesium) tablet levetiracetam 750 mg tablet 750 mg PO BID #180 tabs 01/16/22 metformin 500 mg tablet 500 mg PO BID #180 tabs 03/01/22 atorvastatin 20 mg tablet 20 mg PO DAILY #90 tabs 05/22/22 levothyroxine 25 mcg tablet 25 mcg PO DAILY #90 tabs 09/06/22 Results & Data (ED) Vital Signs Vital Signs - 24 hr 10/25/22 14:18 10/25/22 17:13 10/25/22 17:15 Temperature 36.7 C Temperature Source Temporal Artery Scan Pulse Rate 71 68 Pulse Rate [Right Finger] 68 Pulse Rate from SpO2 Sensor Respiratory Rate 18 22 16 Respiratory Effort / Characteristics Non-Labored Respiratory Depth Normal Blood Pressure 152/110 H Blood Pressure [Right Arm] 138/84 Blood Pressure Mean 124 Blood Pressure Mean [Right Arm] 102 Pulse Oximetry 91 96 95 Oxygen Delivery Method Room Air Room Air Room Air Oxygen Flow Rate Sepsis Recent Fever Within 48 Hours No Sepsis New/Unexplained Change in Mental Status No Sepsis Action Taken by Nursing No Action Required 10/25/22 18:18 10/25/22 17:28 10/25/22 17:30 Temperature Temperature Source Pulse Rate 71 67 Pulse Rate [Right Finger] Pulse Rate from SpO2 Sensor 66 Respiratory Rate 19 20 Respiratory Effort / Characteristics Respiratory Depth Blood Pressure 161/95 H 140/80 Blood Pressure [Right Arm] Blood Pressure Mean 117 100 Blood Pressure Mean [Right Arm] Pulse Oximetry 99 95 Oxygen Delivery Method Room Air Oxygen Flow Rate Sepsis Recent Fever Within 48 Hours Sepsis New/Unexplained Change in Mental Status Sepsis Action Taken by Nursing 10/25/22 17:30 10/25/22 17:45 10/25/22 18:00 Temperature Temperature Source Pulse Rate 70 70 71 Pulse Rate [Right Finger] Pulse Rate from SpO2 Sensor 69 69 Respiratory Rate 21 20 19 Respiratory Effort / Characteristics Respiratory Depth Blood Pressure Blood Pressure [Right Arm] Blood Pressure Mean Blood Pressure Mean [Right Arm] Pulse Oximetry 96 97 82 L Oxygen Delivery Method Oxygen Flow Rate Sepsis Recent Fever Within 48 Hours Sepsis New/Unexplained Change in Mental Status Sepsis Action Taken by Nursing 10/25/22 18:15 10/25/22 18:17 10/25/22 18:17 Temperature Temperature Source Pulse Rate 71 69 Pulse Rate [Right Finger] Pulse Rate from SpO2 Sensor 71 Respiratory Rate 22 21 Respiratory Effort / Characteristics Respiratory Depth Blood Pressure 161/95 H Blood Pressure [Right Arm] Blood Pressure Mean 117 Blood Pressure Mean [Right Arm] Pulse Oximetry 100 Oxygen Delivery Method Oxygen Flow Rate Sepsis Recent Fever Within 48 Hours Sepsis New/Unexplained Change in Mental Status Sepsis Action Taken by Nursing 10/25/22 18:30 10/25/22 18:45 10/25/22 18:47 Temperature Temperature Source Pulse Rate 68 113 H 99 H Pulse Rate [Right Finger] Pulse Rate from SpO2 Sensor 68 103 H Respiratory Rate 22 24 27 H Respiratory Effort / Characteristics Respiratory Depth Blood Pressure Blood Pressure [Right Arm] Blood Pressure Mean Blood Pressure Mean [Right Arm] Pulse Oximetry 97 100 Oxygen Delivery Method Non-rebreather Oxygen Flow Rate 15 Sepsis Recent Fever Within 48 Hours Sepsis New/Unexplained Change in Mental Status Sepsis Action Taken by Nursing 10/25/22 18:47 10/25/22 19:04 10/25/22 19:39 Temperature Temperature Source Pulse Rate 84 Pulse Rate [Right Finger] Pulse Rate from SpO2 Sensor 84 Respiratory Rate 20 22 Respiratory Effort / Characteristics Non-Labored Spontaneous Respiratory Depth Normal Blood Pressure 163/82 H Blood Pressure [Right Arm] Blood Pressure Mean 97 109 Blood Pressure Mean [Right Arm] Pulse Oximetry 100 100 Oxygen Delivery Method Non-rebreather Nasal Cannula Oxygen Flow Rate 4 Sepsis Recent Fever Within 48 Hours Sepsis New/Unexplained Change in Mental Status Sepsis Action Taken by Nursing 10/25/22 19:35 10/25/22 20:00 10/25/22 20:30 Temperature Temperature Source Pulse Rate 77 80 73 Pulse Rate [Right Finger] Pulse Rate from SpO2 Sensor 81 74 Respiratory Rate 20 19 19 Respiratory Effort / Characteristics Respiratory Depth Blood Pressure 157/75 H 135/66 143/99 H Blood Pressure [Right Arm] Blood Pressure Mean 102 89 113 Blood Pressure Mean [Right Arm] Pulse Oximetry 99 95 100 Oxygen Delivery Method Nasal Cannula Nasal Cannula Nasal Cannula Oxygen Flow Rate 4 4 4 Sepsis Recent Fever Within 48 Hours Sepsis New/Unexplained Change in Mental Status Sepsis Action Taken by Assisted Medications Current Medication List: was personally reviewed by me Laboratory Data Attestation: I reviewed the patient's lab results. 10/25/22 15:31 10/25/22 15:31 Lab Results 10/25/22 10/25/22 10/25/22 Range/Units 15:31 15:31 15:31 WBC 7.12 (4.8-10.8) K/ul RBC 3.22 L (4.20-5.40) M/uL Hgb 10.7 L (12.0-16.0) g/dl Hct 31.0 L (37.0-47.0) % MCV 96.3 (80.0-100.0) fL MCH 33.2 (25.0-34.0) pg MCHC 34.5 (32.0-36.0) g/dL RDW Std Deviation 47.4 H (36.4-46.3) fL RDW Coeff of Ana 13.3 (11.5-14.5) % Plt Count 272 (130-400) K/uL MPV 9.1 L (9.4-12.4) fL Immature Gran % (Auto) 0.3 % Neut % (Auto) 58.2 % Lymph % (Auto) 30.2 % Blanco % (Auto) 7.6 % Eos % (Auto) 3.1 % Baso % (Auto) 0.6 % Neut # (Auto) 4.15 (1.40-6.50) K/uL Lymph # (Auto) 2.15 (1.2-3.4) K/uL Blanco # (Auto) 0.54 (0.11-0.59) K/uL Eos # (Auto) 0.22 (0-0.50) K/uL Baso # (Auto) 0.04 (0-0.2) K/uL Immature Gran # (Auto) 0.02 (0.01-0.20) K/uL PT 10.4 (9.0-12.0) Seconds INR 1.0 (0.9-1.1) APTT 25.0 (21.0-31.0) Seconds PTT Ratio 0.9 Sodium 135 L (136-145) mmol/L Potassium 4.2 (3.5-5.1) mmol/L Chloride 104 (98-107) mmol/L Carbon Dioxide 25 (21-32) mmol/L Anion Gap 6 (3-11) BUN 7 (6-23) mg/dl Creatinine 0.48 L (0.6-1.2) mg/dl Est Cr Clr Drug Dosing Not Reportable Est GFR ( Amer) 104.4 ml/min Est GFR (Non-Af Amer) 90.1 ml/min BUN/Creatinine Ratio 14.6 (10-20) Glucose 104 H (70-99(Fasting)) mg/dl Lactate (0.4-2.0) mmol/L Calcium 8.8 (8.5-10.1) mg/dl Phosphorus Cancelled Magnesium 1.5 L (1.7-2.4) mg/dl Total Bilirubin 0.2 (0.2-1.0) mg/dl AST 17 (13-39) U/L ALT 12 (7-52) U/L Alkaline Phosphatase 120 H (34-104) U/L Ammonia (18-72) umol/L Troponin I High Sens 3.3 (0-14) pg/ml Total Protein 7.0 (6.0-8.3) gm/dl Albumin 4.0 (3.4-5.0) gm/dl Globulin 3.0 (2.5-4.0) gm/dl Albumin/Globulin Ratio 1.3 (0.9-2) TSH (0.300-4.500) uIu/ml Phenytoin (10-20) mcg/ml SARS-CoV-2 (PCR) (Negative) Influenza Type A (PCR) (Neg) Influenza Type B (PCR) (Neg) RSV (RT-PCR) (Neg) 10/25/22 10/25/22 10/25/22 Range/Units 15:31 15:31 17:11 WBC (4.8-10.8) K/ul RBC (4.20-5.40) M/uL Hgb (12.0-16.0) g/dl Hct (37.0-47.0) % MCV (80.0-100.0) fL MCH (25.0-34.0) pg MCHC (32.0-36.0) g/dL RDW Std Deviation (36.4-46.3) fL RDW Coeff of Ana (11.5-14.5) % Plt Count (130-400) K/uL MPV (9.4-12.4) fL Immature Gran % (Auto) % Neut % (Auto) % Lymph % (Auto) % Blanco % (Auto) % Eos % (Auto) % Baso % (Auto) % Neut # (Auto) (1.40-6.50) K/uL Lymph # (Auto) (1.2-3.4) K/uL Blanco # (Auto) (0.11-0.59) K/uL Eos # (Auto) (0-0.50) K/uL Baso # (Auto) (0-0.2) K/uL Immature Gran # (Auto) (0.01-0.20) K/uL PT (9.0-12.0) Seconds INR (0.9-1.1) APTT (21.0-31.0) Seconds PTT Ratio Sodium (136-145) mmol/L Potassium (3.5-5.1) mmol/L Chloride (98-107) mmol/L Carbon Dioxide (21-32) mmol/L Anion Gap (3-11) BUN (6-23) mg/dl Creatinine (0.6-1.2) mg/dl Est Cr Clr Drug Dosing Est GFR ( Amer) ml/min Est GFR (Non-Af Amer) ml/min BUN/Creatinine Ratio (10-20) Glucose (70-99(Fasting)) mg/dl Lactate (0.4-2.0) mmol/L Calcium (8.5-10.1) mg/dl Phosphorus 2.8 Magnesium Cancelled (1.7-2.4) mg/dl Total Bilirubin (0.2-1.0) mg/dl AST (13-39) U/L ALT (7-52) U/L Alkaline Phosphatase (34-104) U/L Ammonia (18-72) umol/L Troponin I High Sens (0-14) pg/ml Total Protein (6.0-8.3) gm/dl Albumin (3.4-5.0) gm/dl Globulin (2.5-4.0) gm/dl Albumin/Globulin Ratio (0.9-2) TSH (0.300-4.500) uIu/ml Phenytoin 9.4 L (10-20) mcg/ml SARS-CoV-2 (PCR) (Negative) Influenza Type A (PCR) (Neg) Influenza Type B (PCR) (Neg) RSV (RT-PCR) (Neg) 10/25/22 10/25/22 10/25/22 Range/Units 17:30 18:48 18:48 WBC (4.8-10.8) K/ul RBC (4.20-5.40) M/uL Hgb (12.0-16.0) g/dl Hct (37.0-47.0) % MCV (80.0-100.0) fL MCH (25.0-34.0) pg MCHC (32.0-36.0) g/dL RDW Std Deviation (36.4-46.3) fL RDW Coeff of Ana (11.5-14.5) % Plt Count (130-400) K/uL MPV (9.4-12.4) fL Immature Gran % (Auto) % Neut % (Auto) % Lymph % (Auto) % Blanco % (Auto) % Eos % (Auto) % Baso % (Auto) % Neut # (Auto) (1.40-6.50) K/uL Lymph # (Auto) (1.2-3.4) K/uL Blanco # (Auto) (0.11-0.59) K/uL Eos # (Auto) (0-0.50) K/uL Baso # (Auto) (0-0.2) K/uL Immature Gran # (Auto) (0.01-0.20) K/uL PT (9.0-12.0) Seconds INR (0.9-1.1) APTT (21.0-31.0) Seconds PTT Ratio Sodium (136-145) mmol/L Potassium (3.5-5.1) mmol/L Chloride (98-107) mmol/L Carbon Dioxide (21-32) mmol/L Anion Gap (3-11) BUN (6-23) mg/dl Creatinine (0.6-1.2) mg/dl Est Cr Clr Drug Dosing Est GFR ( Amer) ml/min Est GFR (Non-Af Amer) ml/min BUN/Creatinine Ratio (10-20) Glucose (70-99(Fasting)) mg/dl Lactate 0.6 (0.4-2.0) mmol/L Calcium (8.5-10.1) mg/dl Phosphorus Magnesium (1.7-2.4) mg/dl Total Bilirubin (0.2-1.0) mg/dl AST (13-39) U/L ALT (7-52) U/L Alkaline Phosphatase (34-104) U/L Ammonia 46.0 (18-72) umol/L Troponin I High Sens (0-14) pg/ml Total Protein (6.0-8.3) gm/dl Albumin (3.4-5.0) gm/dl Globulin (2.5-4.0) gm/dl Albumin/Globulin Ratio (0.9-2) TSH (0.300-4.500) uIu/ml Phenytoin (10-20) mcg/ml SARS-CoV-2 (PCR) NEGATIVE (Negative) Influenza Type A (PCR) Negative (Neg) Influenza Type B (PCR) Negative (Neg) RSV (RT-PCR) Negative (Neg) 10/25/22 Range/Units 21:18 WBC (4.8-10.8) K/ul RBC (4.20-5.40) M/uL Hgb (12.0-16.0) g/dl Hct (37.0-47.0) % MCV (80.0-100.0) fL MCH (25.0-34.0) pg MCHC (32.0-36.0) g/dL RDW Std Deviation (36.4-46.3) fL RDW Coeff of Ana (11.5-14.5) % Plt Count (130-400) K/uL MPV (9.4-12.4) fL Immature Gran % (Auto) % Neut % (Auto) % Lymph % (Auto) % Blanco % (Auto) % Eos % (Auto) % Baso % (Auto) % Neut # (Auto) (1.40-6.50) K/uL Lymph # (Auto) (1.2-3.4) K/uL Blanco # (Auto) (0.11-0.59) K/uL Eos # (Auto) (0-0.50) K/uL Baso # (Auto) (0-0.2) K/uL Immature Gran # (Auto) (0.01-0.20) K/uL PT (9.0-12.0) Seconds INR (0.9-1.1) APTT (21.0-31.0) Seconds PTT Ratio Sodium (136-145) mmol/L Potassium (3.5-5.1) mmol/L Chloride (98-107) mmol/L Carbon Dioxide (21-32) mmol/L Anion Gap (3-11) BUN (6-23) mg/dl Creatinine (0.6-1.2) mg/dl Est Cr Clr Drug Dosing Est GFR ( Amer) ml/min Est GFR (Non-Af Amer) ml/min BUN/Creatinine Ratio (10-20) Glucose (70-99(Fasting)) mg/dl Lactate (0.4-2.0) mmol/L Calcium (8.5-10.1) mg/dl Phosphorus Magnesium (1.7-2.4) mg/dl Total Bilirubin (0.2-1.0) mg/dl AST (13-39) U/L ALT (7-52) U/L Alkaline Phosphatase (34-104) U/L Ammonia (18-72) umol/L Troponin I High Sens (0-14) pg/ml Total Protein (6.0-8.3) gm/dl Albumin (3.4-5.0) gm/dl Globulin (2.5-4.0) gm/dl Albumin/Globulin Ratio (0.9-2) TSH 0.925 (0.300-4.500) uIu/ml Phenytoin (10-20) mcg/ml SARS-CoV-2 (PCR) (Negative) Influenza Type A (PCR) (Neg) Influenza Type B (PCR) (Neg) RSV (RT-PCR) (Neg) Administered Medications Discontinued Medications Magnesium Sulfate/Dextrose (Magnesium Sulfate / D5w) 1 gm in 100 mls @ 100 mls/hr IV NOW STA Stop: 10/25/22 18:56 Last Infusion: 10/25/22 20:26 Dose: 0 mls/hr Documented By: Admin: 10/25/22 19:14 Dose: 100 mls/hr Documented By: RADHA Sodium Chloride (Nss 1000ml) 500 mls @ 999 mls/hr IV .Q31M ONE Stop: 10/25/22 19:02 Last Infusion: 10/25/22 20:26 Dose: 0 mls/hr Documented By: Admin: 10/25/22 18:48 Dose: 999 mls/hr Documented By: SHANICE Fosphenytoin Sodium 500 mgpe/ (Sodium Chloride) 60 mls @ 420 mls/hr IV NOW STA Stop: 10/25/22 18:59 Last Infusion: 10/25/22 19:15 Dose: 0 mls/hr Documented By: Admin: 10/25/22 19:03 Dose: 420 mls/hr Documented By: RADHA Ioversol (Optiray 320 500ml) 119 ml IV ONCE ONE Stop: 10/25/22 22:16 Last Admin: 10/25/22 22:16 Dose: 119 ml Documented By: DAVE Lorazepam (Lorazepam 2 Mg/1 Ml Vial) Confirm Administered Dose 2 mg .ROUTE .STK- MED ONE Stop: 10/25/22 18:46 Last Admin: 10/25/22 18:48 Dose: 1 mg Documented By: SHANICE Lorazepam (Lorazepam 2 Mg/1 Ml Vial) 1 mg IV NOW STA Stop: 10/25/22 18:51 Last Admin: 10/25/22 18:51 Dose: Not Given Documented By: SHANICE Imaging Data Radiologist's Impression: Head CT 10/25/22 14:25 CT OF THE HEAD WITHOUT CONTRAST CLINICAL HISTORY: Confusion. COMPARISON STUDY: Head CTs January 23, 2022 and October 16, 2022. CT DOSE: 1311.06 mGy.cm TECHNIQUE: Helical axial images of the head were obtained without IV contrast. Automated exposure control was utilized for the study. A dose lowering technique was utilized adhering to the principles of ALARA. FINDINGS: This study is mildly compromised by motion artifact. No acute intracranial hemorrhage, midline shift or mass effect is present. The ventricular system is unremarkable. The basal cisterns are patent. No extra- axial collections are present. There are no findings to suggest acute dural sinus thrombosis or acute territorial infarct. No significant calvarial abnormalities are present. Scattered white matter hypodensities are unchanged. IMPRESSION: No acute intracranial findings. No change in appearance of the brain. ACT 112: Negative or not required by law. Electronically signed by: Migel Tillman M.D. 10/25/2022 4:01 PM Chest X-Ray 10/25/22 17:11 XR chest 1V portable HISTORY: hypoxia COMPARISON: Chest 10/16/2022. FINDINGS: No pneumothorax. No pleural effusions. Bibasilar linear densities favor subsegmental atelectasis are scarring. This remains unchanged. The heart remains mildly enlarged. No new focal lung consolidations to suggest a pneumonia. No evidence for pulmonary edema. IMPRESSION: No significant change compared to the prior study. No acute process. ACT 112: Negative or not required by law. Electronically signed by: Gray Sauer M.D. 10/25/2022 6:33 PM Discharge Plan Visit Data Chief Complaint: Confusion Stated Complaint: DISORIENTED,DIZZY,HX HIGH DILANTIN ED Provider: Connor Kong Discharge Problem: Altered mental status, Anemia, Dilantin level too low, Seizure Patient Disposition: Admitted As Inpatient Condition: Fair Forms Stand Alone Forms: My [facility] bMenu Prescriptions Prescriptions: No Action metformin 500 mg tablet 500 mg PO BID Qty: 180 3RF atorvastatin 20 mg tablet 20 mg PO DAILY Qty: 90 3RF levothyroxine 25 mcg tablet 25 mcg PO DAILY Qty: 90 3RF magnesium oxide 400 mg (241.3 mg magnesium) tablet 400 mg PO HS Qty: 30 11RF levetiracetam 750 mg tablet 750 mg PO BID Qty: 180 3RF acetaminophen 325 mg Tablet 650 mg PO Q4H PRN (Reason: pain) Qty: 30 0RF cyanocobalamin (vitamin B-12) 1,000 mcg capsule 1,000 mcg PO DAILY Qty: 30 0RF sodium chloride 1,000 mg Tablet,Soluble 1,000 mg PO BID phenytoin sodium extended [Dilantin Extended] 100 mg capsule 100 mg PO BID Rx Instructions: BRAND NECESSARY diclofenac sodium [Voltaren Arthritis Pain] 1 % gel 2 g topical QID PRN (Reason: Pain) Referrals Referrals: Francesca Tillman MD [Primary Care Provider] -
[2022-10-25 17:27] LABS: Basophils # (auto) 0.04 K/uL (0-0.2); Basophils % (auto) 0.6 %; Eosinophils # (auto) 0.22 K/uL (0-0.50); Eosinophils % (auto) 3.1 %; Hemoglobin 10.7 g/dl (12.0-16.0); Immature Granulocytes # (auto) 0.02 K/uL (0.01-0.20); Immature Granulocytes % (auto) 0.3 %; Lymphocytes # (auto) 2.15 K/uL (1.2-3.4); Lymphocytes % (auto) 30.2 %; Mean Corpuscular Hemoglobin 33.2 pg (25.0-34.0); Mean Corpuscular Hgb Conc 34.5 g/dL (32.0-36.0); Mean Corpuscular Volume 96.3 fL (80.0-100.0); Mean Platelet Volume 9.1 fL (9.4-12.4); Monocytes # (auto) 0.54 K/uL (0.11-0.59); Monocytes % (auto) 7.6 %; Neutrophils # (auto) 4.15 K/uL (1.40-6.50); Neutrophils % (auto) 58.2 %; Platelet Count 272 K/uL (130-400); RDW Coefficient of Variation 13.3 % (11.5-14.5); RDW Standard Deviation 47.4 fL (36.4-46.3); Red Blood Count 3.22 M/uL (4.20-5.40); White Blood Count 7.12 K/ul (4.8-10.8)
[2022-10-25 17:45] LABS: Alanine Aminotransferase 12 U/L (7-52); Albumin Globulin Ratio 1.3 (0.9-2); Alkaline Phosphatase 120 U/L (34-104); Anion Gap 6 (3-11); Aspartate Aminotransferase 17 U/L (13-39); BUN Creatinine Ratio 14.6 (10-20); Bilirubin,Total 0.2 mg/dl (0.2-1.0); Blood Urea Nitrogen 7 mg/dl (6-23); Calcium 8.8 mg/dl (8.5-10.1); Carbon Dioxide 25 mmol/L (21-32); Chloride 104 mmol/L (98-107); Est GFR (African American) 104.4 ml/min; Est GFR (Non-African American) 90.1 ml/min; Potassium 4.2 mmol/L (3.5-5.1); Sodium 135 mmol/L (136-145)
[2022-10-25 17:54] LABS: Glucose 104 mg/dl (70-99(Fasting)); Magnesium 1.5 mg/dl (1.7-2.4)
[2022-10-25 17:55] LABS: Partial Thromboplastin Ratio 0.9; Prothrombin Time 10.4 Seconds (9.0-12.0)
[2022-10-25] MEDS ORDERED: MAGNESIUM SULFATE / D5W 1 GM/100 ML BAG IV STA (17:57)
[2022-10-25 18:01] LABS: Troponin I High Sensitivity 3.3 pg/ml (0-14)
[2022-10-25 18:22] LABS: Influenza A virus by PCR Negative (Neg); Influenza B virus by PCR Negative (Neg); RSV by PCR Negative (Neg); SARS CoV2 RNA(COVID-19) Ceph NEGATIVE (Negative)
[2022-10-25] MEDS ORDERED: SODIUM CHLORIDE 0.9% 1000ML 500 ML IV ONE (18:32)
--- NOTE | 2022-10-25 18:36 | XRay Report ---
XR chest 1V portable HISTORY: hypoxia COMPARISON: Chest 10/16/2022. FINDINGS: No pneumothorax. No pleural effusions. Bibasilar linear densities favor subsegmental atelec tasis are scarring. This remains unchanged. The heart remains mildly enlarged. No new focal lung cons olidations to suggest a pneumonia. No evidence for pulmonary edema. IMPRESSION: No significant change compared to the prior study. No acute process. ACT 112: Negative or not required by law. Electronically signed by: Gray Sauer M.D. 10/25/2022 6:33 PM
[2022-10-25] MEDS ORDERED: LORazepam 2 MG/1 ML VIAL ONE (18:45)
[2022-10-25] MEDS ORDERED: LORazepam 2 MG/1 ML VIAL IV STA (18:50)
[2022-10-25] MEDS ORDERED: FOSPHENYTOIN IV STA (18:50)
[2022-10-25] MEDS ORDERED: SODIUM CHLORIDE IV STA (18:50)
--- NOTE | 2022-10-25 20:39 | History & Physical Report ---
Date of Service October 25, 2022 Assessment & Plan (1) AMS (altered mental status): Plan: 86-year-old woman with history of epilepsy (Keppra, phenytoin), DM2, hypothyroidism, GERD, dyslipidemia, as well as recent history of phenytoin toxicity (44.2) who presented to the ED for confusion. Admitted to the hospital for management of altered mental status. Altered mental status -Long-term history of epilepsy managed by Dr. Reji Montero. Chronically on Keppra, phenytoin. -Recent admission for acute encephalopathy secondary to phenytoin toxicity. Home dose of phenytoin reduced by half at discharge. -Subtherapeutic phenytoin level on admission (9.4). Ammonia within normal limits. Negative troponin. TSH normal. -S/p bolus fosphenytoin 500 mgpe, IV lorazepam x1 mg in ED. -Suspect altered state postictal confusion vs absence seizure, given subtherapeutic phenytoin level. * Admit to MedSurg telemetry * Stat CTA head/neck * Routine MRI ordered for a.m. * Await neurology recs regarding phenytoin med titration * Continue home antiepileptic regimen: Keppra 750 mg twice daily, phenytoin 100 mg twice daily. * Electrolyte repletion per protocol. Type 2 diabetes -On metformin 500 mg twice daily at home. Held on admission * SSI SQ insulin Hypothyroidism * Continue home levothyroxine 25 mcg daily B12 deficiency * Vitamin B12 1000 mcg p.o. daily Dyslipidemia * Continue home atorvastatin 20 mg daily Code: Full code Dispo: Med-Surg telemetry FEN/GI: NPO. mIVF DVT Prophylaxis: SQ heparin 5000 units every 12 hours PT/OT: Yes Consults: Neurology (2) Seizure disorder: (3) Type 2 diabetes mellitus: (4) Hypothyroidism: (5) Dyslipidemia: (6) Hyponatremia: History of Present Illness Chief Complaint: Confusion Primary Care Provider: Francesca Tillman MD Agata is an 86 year old woman with a past medical history of epilepsy (on Keppra, Dilantin), DM2, CVA (~20 years ago), dyslipidemia, hypothyroidism, GERD, who presented to the emergency room with her daughter with a complaint of confusion x1 day. Specifically, daughter reported she was not responsive to questions, and appeared confused. Daughter denies cough or evidence of congestion, shortness of breath, complaints of pain, nausea, or fever. She was recently discharged from the hospital following an admission for confusion, presumed secondary to phenytoin toxicity (44.3 [address] head at that time was negative for acute process. She did not have a CTA head/neck or MRI done at that visit. Her phenytoin level trended down on subsequent checks on the day of admission; she was evaluated by neurology who decreased her home dose to 100 mg twice daily, down from 200 mg twice daily. In the ED today, labs were notable for a phenytoin level of 9.4, and magnesium level of 1.5. CXR was negative for acute infectious process. Noncontrast CT head was also negative for acute intracranial process. She received a dose of IV Ativan 1 mg, IV Mg repletion x1 g, and a bolus dose of IV fosphenytoin due to suspicion of seizure. On admission, she responds spontaneously to voice but is unable to respond to questions beyond "yes" or "no" answers. GCS score 13 [[id number]]. Allergies Allergy/AdvReac Type Severity Reaction Status Date / Time levofloxacin [From Levaquin] Allergy Severe Possible Verified 10/25/22 17:56 seizure peanut Allergy Intermediate SNEEZE, Verified 10/25/22 17:56 COUGH allopurinol [From Zyloprim] Allergy Unknown Unknown Verified 10/25/22 17:56 lorazepam Allergy Unknown Unknown Verified 10/25/22 17:56 nortriptyline Allergy Unknown Unknown Verified 10/25/22 17:56 Opioids - Morphine Analogues Allergy Unknown Unknown Verified 10/25/22 17:56 Penicillins Allergy Unknown Unknown Verified 10/25/22 17:56 Sulfa (Sulfonamide Allergy Unknown Unknown Verified 10/25/22 17:56 Antibiotics) risedronate sodium AdvReac Intermediate Intolerence Verified 10/25/22 17:56 [From Actonel] Home Medications Medication Instructions Recorded Confirmed Type acetaminophen 325 mg tablet 650 mg PO Q4H PRN pain #30 tabs 11/16/21 10/25/22 Rx cyanocobalamin (vitamin B-12) 1,000 mcg PO DAILY #30 caps 11/16/21 10/25/22 Rx 1,000 mcg capsule magnesium oxide 400 mg (241.3 mg 400 mg PO HS #30 tabs 12/07/21 10/25/22 Rx magnesium) tablet levetiracetam 750 mg tablet 750 mg PO BID #180 tabs 01/16/22 10/25/22 Rx metformin 500 mg tablet 500 mg PO BID #180 tabs 03/01/22 10/25/22 Rx atorvastatin 20 mg tablet 20 mg PO DAILY #90 tabs 05/22/22 10/25/22 Rx levothyroxine 25 mcg tablet 25 mcg PO DAILY #90 tabs 09/06/22 10/25/22 Rx diclofenac sodium 1 % topical gel 2 g topical QID PRN Pain 10/16/22 10/25/22 History (Voltaren Arthritis Pain) phenytoin sodium extended 100 mg 100 mg PO BID 10/16/22 10/25/22 History capsule (Dilantin Extended) sodium chloride 1,000 mg soluble 1,000 mg PO BID 10/16/22 10/25/22 History tablet Past Med/Surg History Medical History Acid reflux B12 deficiency Carpal tunnel syndrome, right Dyslipidemia Gallstone pancreatitis H/O: CVA (cerebrovascular accident) Hiatal hernia History of stroke 20 YRS AGO Hypothyroidism Idiopathic polyneuropathy Osteoarthritis Osteoporosis Seizure disorder epilepsy, primary generalized seizure disorder--follows with Dr. 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- taking seizure meds- last seizure beginning of 2019 secondary to low phenytoin level in context of tx of infection- has had no interval seizures- clinically stable- follow up six months Type 2 diabetes mellitus Surgical History H/O: hysterectomy (~1965) History of ankle surgery x2--left d/t fracture History of appendectomy (~1965) History of colonoscopy History of ERCP (07/29/20) History of open reduction and internal fixation (ORIF) procedure left wrist--hardware removed History of right cataract extraction History of surgery on left wrist History of tooth extraction all top removed/most of bottom S/P cholecystectomy (07/29/20) S/P endoscopic carpal tunnel release 06/14/2021 Right wrist Family History Father Hypertension Mother Diabetes Myocardial infarction Brother Diabetes Lung disease Brother Diabetes Brother Diabetes Brother Diabetes Brother Diabetes Other No family history of adverse response to anesthesia Denies family history of Ovarian cancer Prostate cancer Breast cancer Colorectal cancer Social History Smoking Status: Never smoker Second Hand Exposure: No; Hx Alcohol Use: No Hx Substance Use: No Preferred Language: Luxembourgish Communication Ability: Unable Visual Impairment: No Limitations Hearing Ability: Hard of Hearing Enterer Required: No Beliefs That Will Affect Care: None marital status: / Current Living Situation: Family Current Living Situation Comment: Lives with Son current occupational status: retired 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 How many Children do You have: 2 Feels Safe at Home: Yes Childhood Exposure to Second-Hand Smoke: Yes Diet Comment: Patient watches serving sizes and counts carefully Dental Care, Regularly: No Physical Activity Frequency: Daily Seatbelt Use: always Sunscreen Use: Yes (when she goes outside ) Gender Identity: Female Assistive Devices: Cane, Walker and Wheelchair Review of Systems Review of Systems: All systems reviewed & are unremarkable except as noted in HPI & below Physical Exam Physical Exam: General: No acute distress HEENT: PERRLA. Normal conjunctiva, anicteric sclera. Oropharynx normal. Respiratory: Normal respiratory effort, CTABL. Cardiovascular: RRR without murmurs, gallops, or rubs. No pedal edema. GI: Soft abdomen with normal bowel sounds heard on auscultation. Nontender x4 quadrants Neuro: Responds to voice. No focal deficits appreciated Results & Data Results & Data Vital Signs (Past 12 Hours) Vital Signs Temp Pulse Pulse Resp BP BP Pulse Ox 10/25/22 19:35 77 20 157/75 H 99 10/25/22 19:39 22 100 10/25/22 19:04 84 20 163/82 H 100 10/25/22 18:47 99 H 27 H 100 10/25/22 18:45 113 H 24 10/25/22 18:30 68 22 97 10/25/22 18:17 161/95 H 10/25/22 18:17 69 21 100 10/25/22 18:15 71 22 10/25/22 18:00 71 19 82 L 10/25/22 17:45 70 20 97 10/25/22 17:30 70 21 96 10/25/22 17:30 140/80 10/25/22 17:28 67 20 95 10/25/22 18:18 71 19 161/95 H 99 10/25/22 17:15 68 16 95 10/25/22 17:13 68 22 138/84 96 10/25/22 14:18 36.7 C 71 18 152/110 H 91 O2 Del Method O2 Flow Rate 10/25/22 19:35 Nasal Cannula 4 10/25/22 19:39 Nasal Cannula 4 10/25/22 19:04 Non-rebreather 10/25/22 18:47 Non-rebreather 15 10/25/22 18:45 10/25/22 18:30 10/25/22 18:17 10/25/22 18:17 10/25/22 18:15 10/25/22 18:00 10/25/22 17:45 10/25/22 17:30 10/25/22 17:30 10/25/22 17:28 10/25/22 18:18 Room Air 10/25/22 17:15 Room Air 10/25/22 17:13 Room Air 10/25/22 14:18 Room Air Supervising Physician Co-Signing Physician Notes Attending addendum: I have physically seen this patient, have supervised the medical residents activities, and agree with the H&P unless as otherwise noted. Assessment and Plan: Change in mental status- Patient recently admitted from 10/16-10/19/2022 for Dilantin toxicity with subsequent reduction in dosage Dilantin is mildly subtherapeutic today, he was given fosphenytoin 500 mg IV by the ED with concern regarding possible postictal state as cause of symptoms CT head last visit negative Order CTA head and neck Order an EEG and MRI to further assess Consult neurology Diabetes mellitus- Hold metformin Placed on NovoLog SSI Hypothyroidism continue routine dosing of levothyroxine 25 mcg daily Vit B12 deficiency- Continue supplement with 1000 mcg daily Dyslipidemia- Continue atorvastatin 20 mg daily Remaining orders and notations as noted Resident Activity Tracking Resident Involvement: Resident Care Provided Care Provided: Adult Hospital Medicine (4) Hypothyroidism Hypothyroidism type: acquired Qualified Code(s): E03.9 - Hypothyroidism, unspecified
[2022-10-25] MEDS ORDERED: OPTIRAY 320 500ml IV ONE (22:15)
[2022-10-25] MEDS ORDERED: DICLOFENAC SOD 1% GEL 100 GM TUBE EXT PRN (23:32)
[2022-10-25] MEDS ORDERED: ONDANSETRON INJ 2 MG/ML 2 ML VIAL IV PRN (23:32)
--- NOTE | 2022-10-26 00:53 | CT Scan Report ---
Exam(s): CTA HEAD With Contrast IV Amt: 113 ml optiray EXAM: CT Angiography Head With Intravenous Contrast CLINICAL HISTORY: Reason for exam: AMS. TECHNIQUE: Axial computed tomographic angiography images of the head with intravenous contrast. CTDI is 44.55 mGy and DLP is 510.57 mGy-cm. Automated exposure control was utilized for the study. A dose lowering technique was utilized adhering to the principles of ALARA. MIP reconstructed images were created and reviewed. CONTRAST: Patient received 113 ml optiray of IV contrast COMPARISON: 11/13/21 FINDINGS: Right internal carotid artery: No acute findings. Intracranial segment is patent with no significant stenosis. No aneurysm. Right anterior cerebral artery: Unremarkable. No occlusion or significant stenosis. No aneurysm. Right middle cerebral artery: Unremarkable. No occlusion or significant stenosis. No aneurysm. Right posterior cerebral artery: Unremarkable. No occlusion or significant stenosis. No aneurysm. Right vertebral artery: Unremarkable as visualized. Left internal carotid artery: No acute findings. Intracranial segment is patent with no significant stenosis. No aneurysm. Left anterior cerebral artery: Unremarkable. No occlusion or significant stenosis. No aneurysm. Left middle cerebral artery: Unremarkable. No occlusion or significant stenosis. No aneurysm. Left posterior cerebral artery: Unremarkable. No occlusion or significant stenosis. No aneurysm. Left vertebral artery: There is a diminutive left vertebral artery. Basilar artery: Unremarkable. No occlusion or significant stenosis. No aneurysm. IMPRESSION: No acute findings in the arteries of the head/brain. Electronically signed by: Carmine Hale MD 10/26/22 00:52 AM
--- NOTE | 2022-10-26 00:57 | CT Scan Report ---
Exam(s): CTA NECK With Contrast IV Amt: 113 ml optiray EXAM: CT Angiography Neck With Intravenous Contrast CLINICAL HISTORY: Reason for exam: AMS. TECHNIQUE: Routine carotid CT angiography protocol was performed with intravenous contrast. NASCET criteria using the distal ICAs for comparison were used for evaluation of stenoses. CTDI is 44.55 mGy and DLP is 510.57 mGy-cm. Automated exposure control was utilized for the study. A dose lowering technique was utilized adhering to the principles of ALARA. MIP reconstructed images were created and reviewed. CONTRAST: Patient received 113 ml optiray of IV contrast COMPARISON: None. FINDINGS: VASCULATURE: Right common carotid artery: Unremarkable. No occlusion or significant stenosis. No dissection. Right internal carotid artery: See below. Right external carotid artery: Unremarkable. No occlusion. Right vertebral artery: Unremarkable. No occlusion or significant stenosis. No dissection. Left common carotid artery: Unremarkable. No occlusion or significant stenosis. No dissection. Left internal carotid artery: See below. Left external carotid artery: Unremarkable. No occlusion. Left vertebral artery: Unremarkable. No occlusion or significant stenosis. No dissection. Other vasculature: There is mild atherosclerotic disease of the carotid bulbs bilaterally with less than 50% stenosis of the internal carotid arteries. NECK: Bones/joints: Unremarkable. Soft tissues: Unremarkable. Thyroid: There is a hypodense lesion in the left thyroid which is incompletely characterized on this examination. Lung apices: Clear. CAROTID STENOSIS REFERENCE USING NASCET CRITERIA: % ICA stenosis = (1 - narrowest ICA diameter/diameter of distal cervical ICA) x 100. Mild - <50% stenosis. Moderate - 50-69% stenosis. Severe - 70-94% stenosis. Near occlusion - 95-99% stenosis. Occluded - 100% stenosis. IMPRESSION: 1. Mild atherosclerotic disease of the carotid bulbs with less than 50% stenosis of the internal carotid arteries. 2. Left thyroid nodule for which a nonemergent thyroid ultrasound Electronically signed by: Carmine Hale MD 10/26/22 00:56 AM
--- NOTE | 2022-10-26 07:33 | Electrocardiogram Report ---
Test Reason : Blood Pressure : / mmHG Vent. Rate : 065 BPM Atrial Rate : 065 BPM P-R Int : 000 ms QRS Dur : 086 ms QT Int : 400 ms P-R-T Axes : 000 -12 -05 degrees QTc Int : 416 ms Poor data quality, interpretation may be adversely affected Normal sinus rhythm Nonspecific T wave abnormality Abnormal ECG Confirmed by Luis Carranza ([id number]) on 10/26/2022 7:32:44 AM Referred By: REFERRED SELF Confirmed By:Winston Carranza
[2022-10-26 07:45] LABS: Alanine Aminotransferase 14 U/L (7-52); Albumin Globulin Ratio 1.4 (0.9-2); Albumin Level 4.1 gm/dl (3.4-5.0); Alkaline Phosphatase 123 U/L (34-104); Anion Gap 8 (3-11); Aspartate Aminotransferase 21 U/L (13-39); Bilirubin,Total 0.3 mg/dl (0.2-1.0); Blood Urea Nitrogen 7 mg/dl (6-23); Calcium 8.8 mg/dl (8.5-10.1); Carbon Dioxide 26 mmol/L (21-32); Chloride 103 mmol/L (98-107); Est GFR (Non-African American) 88.9 ml/min; Globulin 2.9 gm/dl (2.5-4.0); Glucose 124 mg/dl (70-99(Fasting)); Potassium 4.4 mmol/L (3.5-5.1); Sodium 137 mmol/L (136-145)
[2022-10-26] MEDS: PHENYTOIN SODIUM ER 100 MG CAP PO SCH ×2 (09:25→20:20)
[2022-10-26] MEDS: levETIRAcetam 250 MG TAB PO SCH ×2 (09:25→20:21)
[2022-10-26] MEDS: LEVOTHYROXINE SODIUM 25 MCG TABLET PO SCH (09:25)
[2022-10-26] MEDS: ATORVASTATIN 20 MG TAB PO SCH (09:26)
[2022-10-26] MEDS: CYANOCOBALAMIN (B-12) 500 MCG TABLET PO SCH (09:26)
[2022-10-26] MEDS: SODIUM CHLORIDE 1 GM TABLET PO SCH ×2 (09:26→20:21)
[2022-10-26] MEDS: HEPARIN SOD 5,000 UNIT/0.5 ML VIAL SQ SCH ×2 (09:26→22:11)
--- NOTE | 2022-10-26 09:35 | Neurology Consultation ---
Date of Consultation October 26, 2022 Assessment & Plan (1) Altered mental status: (2) Seizure: Plan Persistent altered mental status, likely postictal due to recent breakthrough seizure in the context of subtherapeutic Dilantin level. Patient has primary generalized epilepsy and has been on Dilantin and Keppra for many years. Patient was given extra fosphenytoin, 500 mg of phenytoin equivalents in the emergency department. Her Dilantin and Keppra have otherwise been continued at her regular dosage. Recent hospitalization for Dilantin toxicity noted although patient was apparently taking twice the amount indicated in the medical record. I would recommend changing patient's Dilantin regimen from 200 mg/day to 230 mg/day. She would need a prescription for the 30 mg extended release capsule. (Our pharmacy does have the 30 mg capsule.) She would therefore take 2 of the 100 mg capsules per day as well as an extra 30 mg capsule per day. Her Dilantin could be dosed at the same time as these are extended release capsules. However, because she is used to twice daily dosing, would go with 100 mg in the morning, 130 mg in the evening. I would also recommend increasing her dosage of Keppra to 1000 mg twice daily. (She is currently on 750 mg twice daily and her previous levels tend to run on the low end of the typical therapeutic range.) I expect her postictal state to improve throughout the day. No need for an EEG at this time. No further immediate recommendations, may follow-up with me or an ALEX in neurology clinic in 2 to 3 weeks. History of Present Illness Reason for Consultation: Change in mental status, history of epilepsy Requesting Physician: Mary Jo Tamez MD Attending Physician: Timothy Li MD History of Present Illness The patient is an 86-year-old female who is known to me, she has a history of primary generalized epilepsy for which she has been on Dilantin and Keppra for many years. She was admitted to the [facility] 1 week ago for encephalopathy felt to be related to phenytoin toxicity. She was seen by Dr. Montez as well as the [facility] neurologist, Dr. Hall at that time. Looks like the patient may have been taking twice the amount of Dilantin that we had listed in the medical record. Her Dilantin was held and restarted at her recommended dose of 100 mg twice daily. The Keppra dosage was not changed. The patient presented to the emergency department yesterday for confusion, poor appetite, was apparently drying her hands in the bathroom for over 10 minutes, family had expressed concern regarding possibility of recurrence of Dilantin toxicity. Her phenytoin level was only 9.4 yesterday, however. The patient had an observed seizure in the emergency department, short duration tonic-clonic activity, followed by another similar event, resolved with administration of lamont azepam IV. She was given fosphenytoin, 500 mg phenytoin equivalents. The patient continues to exhibit altered mental status this morning, she is awake, but inattentive, sitting up in bed. She does not answer questions or follow commands at this time. Allergies Allergy/AdvReac Type Severity Reaction Status Date / Time levofloxacin [From Levaquin] Allergy Severe Possible Verified 10/25/22 17:56 seizure peanut Allergy Intermediate SNEEZE, Verified 10/25/22 17:56 COUGH allopurinol [From Zyloprim] Allergy Unknown Unknown Verified 10/25/22 17:56 lorazepam Allergy Unknown Unknown Verified 10/25/22 17:56 nortriptyline Allergy Unknown Unknown Verified 10/25/22 17:56 Opioids - Morphine Analogues Allergy Unknown Unknown Verified 10/25/22 17:56 Penicillins Allergy Unknown Unknown Verified 10/25/22 17:56 Sulfa (Sulfonamide Allergy Unknown Unknown Verified 10/25/22 17:56 Antibiotics) risedronate sodium AdvReac Intermediate Intolerence Verified 10/25/22 17:56 [From Actonel] Home Medications Medication Instructions Recorded Confirmed Type acetaminophen 325 mg tablet 650 mg PO Q4H PRN pain #30 tabs 11/16/21 10/25/22 Rx cyanocobalamin (vitamin B-12) 1,000 mcg PO DAILY #30 caps 11/16/21 10/25/22 Rx 1,000 mcg capsule magnesium oxide 400 mg (241.3 mg 400 mg PO HS #30 tabs 12/07/21 10/25/22 Rx magnesium) tablet levetiracetam 750 mg tablet 750 mg PO BID #180 tabs 01/16/22 10/25/22 Rx metformin 500 mg tablet 500 mg PO BID #180 tabs 03/01/22 10/25/22 Rx atorvastatin 20 mg tablet 20 mg PO DAILY #90 tabs 05/22/22 10/25/22 Rx levothyroxine 25 mcg tablet 25 mcg PO DAILY #90 tabs 09/06/22 10/25/22 Rx diclofenac sodium 1 % topical gel 2 g topical QID PRN Pain 10/16/22 10/25/22 History (Voltaren Arthritis Pain) phenytoin sodium extended 100 mg 100 mg PO BID 10/16/22 10/25/22 History capsule (Dilantin Extended) sodium chloride 1,000 mg soluble 1,000 mg PO BID 10/16/22 10/25/22 History tablet Patient History Medical History Acid reflux B12 deficiency Carpal tunnel syndrome, right Dyslipidemia Gallstone pancreatitis H/O: CVA (cerebrovascular accident) Hiatal hernia History of stroke 20 YRS AGO Hypothyroidism Idiopathic polyneuropathy Osteoarthritis Osteoporosis Seizure disorder epilepsy, primary generalized seizure disorder--follows with Dr. 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- taking seizure meds- last seizure beginning of 2019 secondary to low phenytoin level in context of tx of infection- has had no interval seizures- clinically stable- follow up six months Type 2 diabetes mellitus Surgical History H/O: hysterectomy (~1965) History of ankle surgery x2--left d/t fracture History of appendectomy (~1965) History of colonoscopy History of ERCP (07/29/20) History of open reduction and internal fixation (ORIF) procedure left wrist--hardware removed History of right cataract extraction History of surgery on left wrist History of tooth extraction all top removed/most of bottom S/P cholecystectomy (07/29/20) S/P endoscopic carpal tunnel release 06/14/2021 Right wrist Family History Father Hypertension Mother Diabetes Myocardial infarction Brother Diabetes Lung disease Brother Diabetes Brother Diabetes Brother Diabetes Brother Diabetes Other No family history of adverse response to anesthesia Denies family history of Ovarian cancer Prostate cancer Breast cancer Colorectal cancer Social History Smoking Status: Never smoker Second Hand Exposure: No; Hx Alcohol Use: No Hx Substance Use: No Preferred Language: Cymro Communication Ability: Effective Visual Impairment: No Limitations Hearing Ability: Hard of Hearing Garment Sewer Hand Required: No Beliefs That Will Affect Care: None marital status: / Current Living Situation: Family Current Living Situation Comment: Lives with Son current occupational status: retired 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 How many Children do You have: 2 Feels Safe at Home: Yes Childhood Exposure to Second-Hand Smoke: Yes Diet Comment: Patient watches serving sizes and counts carefully Dental Care, Regularly: No Physical Activity Frequency: Daily Seatbelt Use: always Sunscreen Use: Yes (when she goes outside ) Gender Identity: Female Assistive Devices: Wheelchair Review of Systems Review of Systems: Unobtainable due to cognitive status Exam (Neuro) Constitutional: + altered mental status and + frail appearing Neurologic: Oriented to:: negative Person, Place or Time Memory: negative Short Term Intact or Remote Intact Attention: negative Span Intact or Concentration Intact Speech Fluency: Other (Nonverbal at this time) Fund of Knowledge: negative Current Events, Past History or Vocabulary Motor Strength: negative Normal Lower Extremities or Normal Upper Extremities Motor Tone: Normal Lower Extremities and Normal Upper Extremities Muscle Bulk/Involuntary Movements: No Involuntary Movements Deep Tendon Reflexes: Rt Biceps: 2+, Lt Biceps: 2+, Rt Patellar: 2+ and Lt Patellar: 2+ Details: Pupils equal round reactive to light. There is no nystagmus or gaze preference. Blink reflexes intact. No facial droop. Tongue and palate midline. Gait cannot be tested Results & Data Vital Signs (Past 12 Hours) Vital Signs Temp Pulse Pulse Resp BP BP Pulse Ox 10/26/22 07:54 36.9 C 100 H 17 174/82 H 95 10/26/22 07:21 92 H 10/26/22 06:47 36.6 C 112 H 18 145/87 H 95 10/26/22 02:39 36.4 C L 91 H 18 125/80 97 10/25/22 23:33 10/25/22 23:33 36.9 C 93 H 18 134/76 95 10/25/22 22:30 97 H 21 145/94 H 94 10/25/22 22:38 93 H 18 145/94 H 94 O2 Del Method 10/26/22 07:54 Room Air 10/26/22 07:21 03/18/23 06:47 Room Air 10/26/22 02:39 Room Air 10/25/22 23:33 Room Air 10/25/22 23:33 Room Air 10/25/22 22:30 Room Air 10/25/22 22:38 Room Air Laboratory Results WBC 7.12, hemoglobin 10.7, hematocrit 31.0, platelet count 272, sodium 137, potassium 4.4, BUN 7, creatinine 0.50, glucose 124, calcium 8.8, magnesium 1.5, AST 21, ALT 14, TSH 0.925, phenytoin yesterday 9.4. Phenytoin from October 19 was 21.0. Previous Keppra levels have been reviewed. A level from November 2021 was 16.0, a level from December [address] was [address] Findings CT of the head completed yesterday was negative for hemorrhage or acute findings. There is evidence of chronic microvascular ischemic disease. A CT angiogram of the head and neck revealed no significant vascular abnormalities. I independently reviewed these images. An electrocardiogram revealed a normal sinus rhythm, 65 bpm. Coding Level of Care Code 70034 INT INP/OBS CARE 2/55MIN Diagnoses Altered mental status R41.0 Altered mental status type: delirium Seizure R56.9 (1) Altered mental status Altered mental status type: delirium Qualified Code(s): R41.0 - Disorientation, unspecified
[2022-10-26] MEDS ORDERED: GADOBUTROL 30ML VIAL IV ONE (10:24)
--- NOTE | 2022-10-26 10:53 | Magnetic Resonance Report ---
MRI OF THE BRAIN WITHOUT AND WITH IV CONTRAST SEIZURE PROTOCOL CLINICAL HISTORY: Altered mental status. COMPARISON STUDY: MRI of the brain June 28, [address] and CTA of the head October 25, 2022. TECHNIQUE: Utilizing a 1.5 Marleny magnet and dedicated coil, multiplanar, multiecho imaging of the br ain was performed pre and postcontrast administration. IV administration of 7.7 mL of Gadavist contr ast was uneventful. Thin cut coronal T2 imaging was performed according to seizure protocol. FINDINGS: There are no foci of restricted diffusion to suggest acute infarct. No acute intracranial h emorrhage, midline shift or mass effect is present. Ventricular system is unremarkable. Basal cistern s are patent. There are no extra axial collections. No intracranial mass or pathologic enhancement. 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 There is mild small vessel disease. Calvarial signal is within n ormal limits. IMPRESSION: 1. No acute intracranial findings. 2. No intracranial mass or pathologic enhancement. 3. 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 ACT 112: Negative or not required by law. Electronically signed by: Migel Tillman M.D. 10/26/2022 10:51 AM
[2022-10-26] MEDS ORDERED: levETIRAcetam 1,000 MG in 0.9 % SODIUM CHLORIDE 100 ML IV STA (11:15)
--- NOTE | 2022-10-26 11:20 | Hospitalist Progress Note ---
Date of Service October 26, 2022 Assessment & Plan (1) Acute encephalopathy: Plan: Patient has a history of seizure, was discharged a couple of weeks ago on account of Dilantin Toxicity. She was started on a lower dose of Dilantin. She presents today with altered mental status and a low dilantin level as well as witnessed seizures -MRI of the brain has been done, official read pending -She is probably post ictal because she was was awake, but not responding to verbal cue -Informed by the nurse that the patient had another witnessed seizure -Has been evaluated by Neurology, a dose of IV Keppra 1000mg given -Per neurology, new Dilantin dose will be 230mg daily (100mg am ,130mg pm) and Keppra 1000mg BID -Seizure and fall precaution -Appreciate neurology recs (2) Dilantin level too low: Plan: Admitted with a Dilantin level of 9.4, was discharged on 10/19 with a level of 21 At home, on 100mg BID, Per neurology, new Dilantin dose will be 230mg daily (100mg am ,130mg pm) Received a dose of 500mg IV in the ED Appreciate neurology recs (3) Seizure: Plan monitor Admission and Anticipated Discharge Date Admission Date: October 25, 2022 Subjective patient seen and examined, awake, but lethargic and non verbal Review of Systems Review of Systems: unable to obtain Physical Exam Physical Exam: The patient is awake, lethargic HEENT--PERRL, EOMI, mucous membranes and oropharynx mildly dry Neck--supple. No JVD. No bruits. Thyroid normal, trachea midline, no adenopathy. Heart--normal S1 and S2. No murmurs, rubs or gallops. Lungs--clear bilaterally, no respiratory distress, no accessory muscle use. Abdomen--normal bowel sounds and soft. Mild epigastric and left sided abdominal pain Extremities--no cyanosis or clubbing. No edema. Dermatologic--normal skin turgor, normal color, no abnormal lymph nodes, no rash. Neurologic--cranial nerves II through XII grossly intact. Rheumatologic--normal range of motion. Psychiatric--normal affect. Results & Data Results & Data Vital Signs (Past 12 Hours) Vital Signs Temp Pulse Pulse Resp BP Pulse Ox O2 Del Method 10/26/22 10:54 98.1 F 96 H 18 155/83 H 93 Room Air 10/26/22 07:54 98.4 F 100 H 17 174/82 H 95 Room Air 10/26/22 07:21 92 H 10/26/22 06:47 97.9 F 112 H 18 145/87 H 95 Room Air 10/26/22 02:39 97.5 F L 91 H 18 125/80 97 Room Air 10/25/22 23:33 Room Air 10/25/22 23:33 98.4 F 93 H 18 134/76 95 Room Air PG Care Time/CCT Total # of Minutes Spent Total Time Spent with Patient: Total time spent is greater than 50% in coordination of care (as documented) at patient's floor/unit and/or counseling patient: Coding Level of Care Code 92281 SUB INP/OBS CARE 2/35MIN Diagnoses Acute encephalopathy G93.40 Dilantin level too low R78.89 Seizure R56.9 Time Spent (min) 35
[2022-10-26] MEDS: D5W AND NSS 1,000 ML IV SCH (14:33)
[2022-10-26 16:11] LABS: Basophils # (auto) 0.02 K/uL (0-0.2); Basophils % (auto) 0.3 %; Eosinophils # (auto) 0.05 K/uL (0-0.50); Eosinophils % (auto) 0.6 %; Hematocrit (blood only) 31.7 % (37.0-47.0); Immature Granulocytes # (auto) 0.03 K/uL (0.01-0.20); Immature Granulocytes % (auto) 0.4 %; Lymphocytes # (auto) 1.71 K/uL (1.2-3.4); Lymphocytes % (auto) 21.6 %; Mean Corpuscular Hemoglobin 33.6 pg (25.0-34.0); Mean Corpuscular Hgb Conc 34.7 g/dL (32.0-36.0); Mean Corpuscular Volume 96.9 fL (80.0-100.0); Mean Platelet Volume 9.1 fL (9.4-12.4); Monocytes % (auto) 8.8 %; Neutrophils # (auto) 5.42 K/uL (1.40-6.50); Neutrophils % (auto) 68.3 %; Platelet Count 283 K/uL (130-400); RDW Coefficient of Variation 13.2 % (11.5-14.5); RDW Standard Deviation 47.5 fL (36.4-46.3); Red Blood Count 3.27 M/uL (4.20-5.40); White Blood Count 7.93 K/ul (4.8-10.8)
[2022-10-26] MEDS ORDERED: DEXTROSE 50% 50 ML SYRINGE IV PRN (18:23)
[2022-10-26] MEDS ORDERED: GLUCOSE 40% GEL 15 GM TUBE PO PRN (18:23)
[2022-10-26] MEDS ORDERED: GLUCOSE 10 TAB/TUBE PO PRN (18:23)
[2022-10-26] MEDS ORDERED: CARBOHYDRATES FOR HYPOGLYCEMIA PO PRN (18:23)
[2022-10-26] MEDS ORDERED: GLUCAGON FOR INJ 1 MG VIAL SQ PRN (18:23)
[2022-10-26] MEDS ORDERED: ACETAMINOPHEN 1,000 MG/100 ML VIAL IV PRN (19:56)
[2022-10-26] MEDS: ACETAMINOPHEN 325 MG TAB PO PRN (20:20)
[2022-10-26] MEDS: MAGNESIUM OXIDE 400 MG TAB PO SCH (20:21)
[2022-10-26] MEDS: INSULIN ASPART PER UNIT CHARGE SC SCH (22:12)
[2022-10-26 23:30] LABS: A calco-baum cmplx NotReported Not Detected (NotDetected); Bact fragilis Not Reported Not Detected (NotDetected); C auris Not Reported Not Detected (NotDetected); Calbicans Not Reported Not Detected (NotDetected); Candida glabrata Not Reported Not Detected (NotDetected); Candida krusei Not Reported Not Detected (NotDetected); Candida tropicalis DETECTED (NotDetected); Cneoformans/gatti Not Reported Not Detected (NotDetected); Cparapsilosis Not Reported Not Detected (NotDetected); Ctropicalis Not Reported DETECTED (NotDetected); E cloacae compx Not Reported Not Detected (NotDetected); Efaecalis Not Reported Not Detected (NotDetected); Efaecium Not Reported Not Detected (NotDetected); Enterobacterales Not Reported Not Detected (NotDetected); Escherichia coli Not Reported Not Detected (NotDetected); H influenzae Not Reported Not Detected (NotDetected); K aerogenes Not Reported Not Detected (NotDetected); Koxytoca Not Reported Not Detected (NotDetected); Kpneumoniae grp Not Reported Not Detected (NotDetected); Lmonocyt Not Reported Not Detected (NotDetected); N meningitidis Not Reported Not Detected (NotDetected); P aeruginosa Not Reported Not Detected (NotDetected); Proteus spp Not Reported Not Detected (NotDetected); Salmonella spp Not Reported Not Detected (NotDetected); Smarcescens Not Reported Not Detected (NotDetected); Staph lugdunensis Not Reported Not Detected (NotDetected); Staph spp. Not Reported DETECTED (NotDetected); Staphaureus Not Reported Not Detected (NotDetected); Staphepi Not Reported DETECTED (NotDetected); Staphylococcus spp. DETECTED (NotDetected); Stenmaltophilia Not Reported Not Detected (NotDetected); Strep agal(GrpB) Not Reported Not Detected (NotDetected); Strep pneum Not Reported Not Detected (NotDetected); Strep pyog (GrpA) Not Reported Not Detected (NotDetected); Strep spp Not Reported Not Detected (NotDetected); mecAC Resistant Gene Not Detected (NotDetected)
--- NOTE | 2022-10-26 23:49 | Billing Data ---
Date of Service October 26, 2022 Coding Level of Care Code 15998 INT INP/OBS CARE
[2022-10-26 23:51] LABS: Staphylococcus epidermidis DETECTED (NotDetected)
[2022-10-27] MEDS: D5W AND NSS 1,000 ML IV SCH ×2 (04:01→16:03)
[2022-10-27] MEDS: LEVOTHYROXINE SODIUM 25 MCG TABLET PO SCH (06:25)
[2022-10-27 06:54] LABS: Basophils # (auto) 0.03 K/uL (0-0.2); Basophils % (auto) 0.3 %; Eosinophils # (auto) 0.01 K/uL (0-0.50); Eosinophils % (auto) 0.1 %; Hematocrit (blood only) 34.4 % (37.0-47.0); Hemoglobin 11.6 g/dl (12.0-16.0); Immature Granulocytes # (auto) 0.05 K/uL (0.01-0.20); Immature Granulocytes % (auto) 0.4 %; Lymphocytes # (auto) 1.27 K/uL (1.2-3.4); Lymphocytes % (auto) 11.3 %; Mean Corpuscular Hemoglobin 33.2 pg (25.0-34.0); Mean Corpuscular Hgb Conc 33.7 g/dL (32.0-36.0); Mean Corpuscular Volume 98.6 fL (80.0-100.0); Mean Platelet Volume 9.3 fL (9.4-12.4); Monocytes # (auto) 0.99 K/uL (0.11-0.59); Monocytes % (auto) 8.8 %; Neutrophils # (auto) 8.84 K/uL (1.40-6.50); Neutrophils % (auto) 79.1 %; Platelet Count 260 K/uL (130-400); RDW Coefficient of Variation 13.4 % (11.5-14.5); RDW Standard Deviation 48.6 fL (36.4-46.3); Red Blood Count 3.49 M/uL (4.20-5.40); White Blood Count 11.19 K/ul (4.8-10.8)
[2022-10-27 07:28] LABS: Alanine Aminotransferase 12 U/L (7-52); Albumin Globulin Ratio 1.4 (0.9-2); Albumin Level 3.8 gm/dl (3.4-5.0); Alkaline Phosphatase 113 U/L (34-104); Anion Gap 8 (3-11); Aspartate Aminotransferase 16 U/L (13-39); BUN Creatinine Ratio 15.7 (10-20); Bilirubin,Total 0.3 mg/dl (0.2-1.0); Blood Urea Nitrogen 8 mg/dl (6-23); Carbon Dioxide 25 mmol/L (21-32); Chloride 105 mmol/L (98-107); Est GFR (African American) 102.3 ml/min; Est GFR (Non-African American) 88.3 ml/min; Globulin 2.7 gm/dl (2.5-4.0); Glucose 184 mg/dl (70-99(Fasting)); Magnesium 1.7 mg/dl (1.7-2.4); Potassium 3.6 mmol/L (3.5-5.1); Sodium 138 mmol/L (136-145); Total Protein 6.5 gm/dl (6.0-8.3)
[2022-10-27] MEDS: CYANOCOBALAMIN (B-12) 500 MCG TABLET PO SCH (08:30)
[2022-10-27] MEDS: levETIRAcetam 250 MG TAB PO SCH (08:30)
[2022-10-27] MEDS: ATORVASTATIN 20 MG TAB PO SCH (08:31)
[2022-10-27] MEDS: SODIUM CHLORIDE 1 GM TABLET PO SCH ×2 (08:31→21:06)
[2022-10-27] MEDS: PHENYTOIN SODIUM ER 100 MG CAP PO SCH ×2 (08:31→21:09)
[2022-10-27] MEDS: HEPARIN SOD 5,000 UNIT/0.5 ML VIAL SQ SCH ×2 (08:32→21:05)
[2022-10-27] MEDS: INSULIN ASPART PER UNIT CHARGE SC SCH ×4 (08:40→21:21)
--- NOTE | 2022-10-27 10:20 | Neurology Progress Note ---
Date of Service October 27, 2022 Assessment & Plan (1) Seizure: (2) Altered mental status: (3) Seizure disorder: Plan 86-year-old female with a longstanding history of primary generalized epilepsy who has been stable with Keppra and Dilantin for many years although we have had some difficulty regulating her Dilantin level recently, with a recent admission for Dilantin toxicity resulting in dosage reduction. Unfortunately, patient now admitted with breakthrough seizures in the context of a low Dilantin level. She was given additional Dilantin during her initial assessment in the emergency department. She had an additional observed seizure episode yesterday and was given an extra gram of Keppra IV at that time. Per nursing report, she had another seizure episode last night at around 8:30 PM. This morning, she is mildly lethargic but is otherwise neurologically intact, without obvious focal deficit or aphasia. A brain MRI completed yesterday was negative for acute process or evidence of seizure focus. A recent CT angiogram of the head and neck was unremarkable, other than an incidental left thyroid nodule which should probably be evaluated with nonemergent thyroid ultrasound per radiology. Given patient's additional breakthrough seizure episode last night, and phenytoin level this morning on the low end of the therapeutic range, I would recommend giving her an additional 200 mg of phenytoin today, may be given as the extended release capsule. Patient should be on Dilantin ER capsules, 100 mg in the morning, 130 mg in the evening. Would also recommend Keppra 1000 mg twice daily. Orders updated, discussed with pharmacist as well. Would also recommend checking a follow-up phenytoin level tomorrow morning. As recommended previously, would check follow-up phenytoin trough level and Keppra level 1 week after discharge. Admission and Anticipated Discharge Date Admission Date: October 25, 2022 Subjective Follow-up for seizures Nursing note reviewed, patient had another tonic-clonic seizure at 8:30 PM last night, duration about 3 minutes, staff physician was notified at that time. She had received an extra 1000 mg of Keppra IV late yesterday morning, at 11:30 AM after a previous breakthrough seizure that had occurred on the floor. She had also been given extra fosphenytoin, 500 mg phenytoin equivalents previously, while in the emergency department for observed seizure activity. The patient does not have any complaint this morning. She seems unaware that she had another seizure episode last night. She is modestly lethargic and is an unreliable historian. Review of Systems Constitutional: no fever and no body aches Musculoskeletal: no myalgia Neurologic: no headache(s) Results & Data Vital Signs (Past 12 Hours) Vital Signs Temp Pulse Pulse Resp BP Pulse Ox O2 Del Method 10/27/22 07:46 36.9 C 98 H 18 143/71 H 93 Room Air 10/27/22 07:17 92 H 10/27/22 03:07 36.5 C 95 H 18 146/74 H 92 Room Air 10/26/22 23:23 89 10/26/22 23:02 37.4 C 97 H 16 153/77 H 90 Room Air Laboratory Results WBC 11.19, hemoglobin 11.6, hematocrit 34.4, platelet count 260, sodium 138, potassium 3.6, BUN 8, creatinine 0.51, glucose 184, calcium 8.0, magnesium 1.7, AST 16, ALT 12, phenytoin level 10.1 Diagnostic Findings Brain MRI completed yesterday negative for acute findings, no intracranial mass or pathologic enhancement, few old lacunar infarcts and mild small vessel ischemic disease observed. I did independently review these images as well and agree with the radiologist findings. No evidence of acute or subacute stroke. No evidence of intracranial hemorrhage. No mesial temporal sclerosis or other seizure foci identified with high resolution T2 weighted/flair coronal sequences. CT angiography of the head and neck completed on the was unremarkable, no significant vascular lesion. There was mention of a left thyroid nodule with suggestion for nonemergent thyroid ultrasound. An electrocardiogram completed on the revealed a normal sinus rhythm, 65 bpm. An EEG completed in June 2016, interpreted by Dr. Sindy Ramirez at that time, was abnormal, revealing intermittent generalized delta waves with superimposed spike activity lasting less than 1 second, moderate background disorganization and slowing. A previous EEG completed in December 2007, interpreted by Dr. Willett at that time have revealed a generalized spike wave abnormality notable with drowsiness. Exam (Neuro) Physical Exam: This morning, the patient does awaken to voice, she responds appropriately to questions. She does appear mildly lethargic. She is able to move all 4 limbs to command. She does not exhibit any gaze preference. No nystagmus. She is not aphasic. She is not hemiplegic. She does not exhibit any abnormal movements. Muscle tone is diffusely normal. Coding Level of Care Code 15414 SUB INP/OBS CARE MIN Diagnoses Seizure R56.9 Altered mental status R41.0 Altered mental status type: delirium Seizure disorder G40.909 (2) Altered mental status Altered mental status type: delirium Qualified Code(s): R41.0 - Disorientation, unspecified
[2022-10-27] MEDS ORDERED: PHENYTOIN SODIUM ER 100 MG CAP PO STA (10:29)
[2022-10-27] MEDS ORDERED: Patient's HEIGHT &/or WEIGHT Needed SCH (11:00)
--- NOTE | 2022-10-27 12:14 | Hospitalist Progress Note ---
Date of Service October 27, 2022 Assessment & Plan (1) Acute encephalopathy: Plan: Patient has a history of seizure, was discharged a couple of weeks ago on account of Dilantin Toxicity. She was started on a lower dose of Dilantin. She presents today with altered mental status and a low dilantin level as well as witnessed seizures -MRI of the brain showed only old infarcts -Overnight, it was reported that patient had another tonic-clonic seizure at 8:30 PM last night, which lasted about 3 minutes, She had received an extra 1000 mg of Keppra IV late yesterday morning, at 11:30 AM after a previous breakthrough seizure that had occurred on the floor -Per neurology, new Dilantin dose will be 230mg daily (100mg am ,130mg pm) and Keppra 1000mg BID -She was a bit more awake and conversational this morning, compared to yesterday -Seizure and fall precaution -Appreciate neurology recs (2) Dilantin level too low: Plan: Admitted with a Dilantin level of 9.4, was discharged on 10/19 with a level of 21 At home, on 100mg BID, Per neurology, new Dilantin dose will be 230mg daily (100mg am ,130mg pm) Repeat level today 10 Continue 100mg AM and 130mg PM daily Appreciate neurology recs (3) Seizure: Plan: Patient has had a long history of seizure disorder (4) Type 2 diabetes mellitus: Plan: Blood glucose is under good control continue insulin sliding scale and carb counts Plan Hopefully d/c when patient is fully back to baseline Admission and Anticipated Discharge Date Admission Date: October 25, 2022 Subjective Follow-up for seizures Nursing note reviewed, . She had also been given extra fosphenytoin, 500 mg phenytoin equivalents previously, while in the emergency department for observed seizure activity. The patient does not have any complaint this morning. She seems unaware that she had another seizure episode last night. She is modestly lethargic and is an unreliable historian. Review of Systems Review of Systems: unable to obtain Physical Exam Physical Exam: The patient is awake, lethargic HEENT--PERRL, EOMI, mucous membranes and oropharynx mildly dry Neck--supple. No JVD. No bruits. Thyroid normal, trachea midline, no adenopathy. Heart--normal S1 and S2. No murmurs, rubs or gallops. Lungs--clear bilaterally, no respiratory distress, no accessory muscle use. Abdomen--normal bowel sounds and soft. Mild epigastric and left sided abdominal pain Extremities--no cyanosis or clubbing. No edema. Dermatologic--normal skin turgor, normal color, no abnormal lymph nodes, no rash . Neurologic--cranial nerves II through XII grossly intact. Rheumatologic--normal range of motion. Psychiatric--normal affect. Results & Data Results & Data Vital Signs (Past 12 Hours) Vital Signs Temp Pulse Pulse Resp BP Pulse Ox O2 Del Method 10/27/22 11:37 98.1 F 97 H 18 144/85 H 93 Room Air 10/27/22 07:46 98.4 F 98 H 18 143/71 H 93 Room Air 10/27/22 07:17 92 H 10/27/22 03:07 97.7 F 95 H 18 146/74 H 92 Room Air PG Care Time/CCT Total # of Minutes Spent Total Time Spent with Patient: Total time spent is greater than 50% in coordination of care (as documented) at patient's floor/unit and/or counseling patient: Coding Level of Care Code 81132 SUB INP/OBS CARE 2/35MIN Diagnoses Acute encephalopathy G93.40 Dilantin level too low R78.89 Seizure R56.9 Type 2 diabetes mellitus E11.9 Time Spent (min) 35
[2022-10-27 17:40] LABS: Appearance Urine Clear (Clear); Bacteria Urine Automated Negative (Negative); Bilirubin Urine Negative (Negative); Blood Urine Negative (Negative); Color Urine Yellow; Glucose Urine UA Trace (Negative); Ketones Urine Trace (Negative); Leukocyte Esterase Urine Negative (Negative); Nitrite Urine Negative (Negative); Protein Urine Trace (Negative); RBC Urine Automated 0-4 /hpf (0-4); Specific Gravity Urine 1.023 (1.000-1.030); Urobilinogen Urine Negative (Negative); pH Urine 5.5 (4.5-7.5)
[2022-10-27] MEDS: MAGNESIUM OXIDE 400 MG TAB PO SCH (21:05)
[2022-10-27] MEDS: levETIRAcetam 500 MG TAB PO SCH (21:05)
[2022-10-27] MEDS: PHENYTOIN SODIUM ER 30 MG CAP PO SCH ×2 (21:06→21:09)
--- NOTE | 2022-10-27 23:45 | Communication Note ---
Date of Service: October 27, 2022 Patient refused ultrasound of the upper extremity several times due to pain and per nursing could not be convinced to follow through with having the ultrasound done. For this reason change ultrasound ordered to morning and recommend patient have pain medication 30 minutes prior to next attempt. Patient is currently hemodynamically stable. If SOB or hypoxia were to occur, order chest CTA to evaluate for PE.
[2022-10-28] MEDS: D5W AND NSS 1,000 ML IV SCH (04:58)
[2022-10-28] MEDS: LEVOTHYROXINE SODIUM 25 MCG TABLET PO SCH (06:03)
[2022-10-28 06:48] LABS: Basophils # (auto) 0.02 K/uL (0-0.2); Basophils % (auto) 0.1 %; Hematocrit (blood only) 30.7 % (37.0-47.0); Hemoglobin 10.5 g/dl (12.0-16.0); Immature Granulocytes # (auto) 0.13 K/uL (0.01-0.20); Immature Granulocytes % (auto) 0.8 %; Lymphocytes # (auto) 1.59 K/uL (1.2-3.4); Lymphocytes % (auto) 10.3 %; Mean Corpuscular Hemoglobin 33.5 pg (25.0-34.0); Mean Corpuscular Hgb Conc 34.2 g/dL (32.0-36.0); Mean Corpuscular Volume 98.1 fL (80.0-100.0); Mean Platelet Volume 9.2 fL (9.4-12.4); Monocytes # (auto) 1.79 K/uL (0.11-0.59); Monocytes % (auto) 11.6 %; Neutrophils # (auto) 11.96 K/uL (1.40-6.50); Neutrophils % (auto) 77.2 %; Platelet Count 251 K/uL (130-400); RDW Coefficient of Variation 13.3 % (11.5-14.5); RDW Standard Deviation 47.8 fL (36.4-46.3); Red Blood Count 3.13 M/uL (4.20-5.40); White Blood Count 15.49 K/ul (4.8-10.8)
[2022-10-28 07:13] LABS: Phosphorus 1.8 mg/dl (2.5-4.9)
[2022-10-28 07:14] LABS: Alanine Aminotransferase 12 U/L (7-52); Albumin Globulin Ratio 1.3 (0.9-2); Albumin Level 3.3 gm/dl (3.4-5.0); Alkaline Phosphatase 90 U/L (34-104); Anion Gap 7 (3-11); Aspartate Aminotransferase 15 U/L (13-39); BUN Creatinine Ratio 13.6 (10-20); Bilirubin,Total 0.5 mg/dl (0.2-1.0); Blood Urea Nitrogen 9 mg/dl (6-23); Calcium 7.9 mg/dl (8.5-10.1); Carbon Dioxide 25 mmol/L (21-32); Chloride 105 mmol/L (98-107); Est GFR (Non-African American) 81.1 ml/min; Globulin 2.6 gm/dl (2.5-4.0); Glucose 174 mg/dl (70-99(Fasting)); Magnesium 1.5 mg/dl (1.7-2.4); Potassium 2.9 mmol/L (3.5-5.1); Sodium 137 mmol/L (136-145); Total Protein 5.9 gm/dl (6.0-8.3)
[2022-10-28] MEDS: ACETAMINOPHEN 325 MG TAB PO PRN ×2 (07:45→13:06)
[2022-10-28] MEDS ORDERED: POTASSIUM PHOS 3 MMOL/1 ML INFUSION IV STA (08:18)
[2022-10-28] MEDS ORDERED: POTASSIUM PHOSPHATE 24 MMOL in SODIUM CHLORIDE 0.9% 500 ML IV ONE (08:45)
[2022-10-28] MEDS: ATORVASTATIN 20 MG TAB PO SCH (09:16)
[2022-10-28] MEDS: POTASSIUM CHLORIDE 10 MEQ TABCR PO SCH ×2 (09:17→21:21)
[2022-10-28] MEDS: CYANOCOBALAMIN (B-12) 500 MCG TABLET PO SCH (09:17)
[2022-10-28] MEDS: HEPARIN SOD 5,000 UNIT/0.5 ML VIAL SQ SCH ×2 (09:17→21:22)
[2022-10-28] MEDS: levETIRAcetam 500 MG TAB PO SCH ×2 (09:17→21:21)
[2022-10-28] MEDS: PHENYTOIN SODIUM ER 100 MG CAP PO SCH ×2 (09:17→21:22)
[2022-10-28] MEDS: SODIUM CHLORIDE 1 GM TABLET PO SCH ×2 (09:18→21:22)
[2022-10-28] MEDS: MAGNESIUM SULFATE / D5W 1 GM/100 ML BAG IV SCH ×2 (09:19→11:11)
[2022-10-28] MEDS: INSULIN ASPART PER UNIT CHARGE SC SCH ×4 (10:14→20:04)
--- NOTE | 2022-10-28 11:59 | Ultrasound Report ---
ULTRASOUND RIGHT UPPER EXTREMITY VENOUS CLINICAL HISTORY: Right arm pain and swelling. COMPARISON STUDY: No priors. TECHNIQUE: Real-time, grayscale, and color Doppler sonography of the deep veins of the right upper ex tremity is performed. Compression and augmentation were utilized. FINDINGS: There is no sonographic evidence of deep venous thrombosis identified in the right upper ex tremity. The right internal jugular, axillary, and brachial veins are patent and normally compressibl e. Normal venous waveforms and augmentation are seen within the right subclavian vein. The cephalic a nd basilic veins are clear. The visualized radial and ulnar veins are patent. IMPRESSION: There is no sonographic evidence of deep venous thrombosis identified in the right upper extremity. ACT 112: Negative or not required by law. Electronically signed by: Connor Wright M.D. 10/28/2022 11:58 AM
--- NOTE | 2022-10-28 13:58 | Hospitalist Progress Note ---
Date of Service October 28, 2022 Assessment & Plan (1) Acute encephalopathy: Plan: Suspected post ictal metabolic encephalopathy. Now resolved. Supportive care. Treat underlying seizure disorder. Currently on Keppra and Dilantin. MRI of the brain showed only old infarcts. Neurology consultation and recommendations appreciated. (2) Dilantin level too low: Plan: Diilantin level 9.4 on admission. Now 10.2. We will follow. Per neurology, new Dilantin dose will be 230mg daily (100mg am ,130mg pm) (3) Seizure: Plan: long history of seizure disorder (4) Type 2 diabetes mellitus: Plan: ADA diet. Sliding scale coverage as needed . Continue current medical management Plan OT and PT assessments ordered to determine if patient needs placement or she can be discharged to home later this week Admission and Anticipated Discharge Date Admission Date: October 25, 2022 Subjective Alert and oriented. Pleasant. Venous Doppler of the right upper extremity negative for DVT. She has diffuse pain of the right upper extremity and right hand but this does not appear to be cellulitis. Potassium, magnesium, phosphorus replacement ordered. Dilantin level 10.2. She is also on Keppra. Oral intake is adequate. Continuous IV fluids discontinued. OT and PT assessments ordered Review of Systems Review of Systems: Constitutional-no fever or chills ENT-no blurred vision, no double vision, no epistaxis, no sore throat Respiratory-no cough, no wheezing, no shortness of breath Cardiac-no palpitations, no chest pain, no syncope GI-no nausea, vomiting, diarrhea, melena, hematochezia -no urinary retention, no urinary incontinence, no dysuria, no hematuria Musculoskeletal-right arm and right hand discomfort. Skin-no bruising, no rashes, no pruritus Neuro-no isolated weakness, no paresthesia, no weakness Psych-no depression, no anxiety Physical Exam Physical Exam: General-alert and oriented x3, no fevers, no chills HEENT-head atraumatic and normocephalic, pupils equal and reactive to light, extraocular muscles intact Neck-no lymphadenopathy or thyromegaly, trachea midline Chest-clear to auscultation percussion. No rales wheezing or rhonchi Cardiac-regular rate and rhythm, normal S1 and S2 Abdomen-normal bowel sounds, nontender, no hepatosplenomegaly Extremities-diffuse tenderness of the right upper extremity and right hand. Mild edema noted on the dorsal aspect of the right hand. No apparent cellulitis. Neuro-cranial nerves II through XII intact, motor and sensory function within normal limits, strength symmetrical , no focal deficits Psych-normal affect, normal mood Results & Data Results & Data Vital Signs (Past 12 Hours) Vital Signs Temp Pulse Pulse Resp BP Pulse Ox O2 Del Method 10/28/22 11:08 37.1 C 100 H 18 130/70 92 Room Air 10/28/22 07:26 38.3 C H 107 H 20 122/70 90 Room Air 10/28/22 07:18 109 H 10/28/22 02:51 37.7 C H 113 H 18 150/82 H 93 Room Air PG Care Time/CCT Total # of Minutes Spent Total Time Spent with Patient: Total time spent is greater than 50% in coordination of care (as documented) at patient's floor/unit and/or counseling patient: Coding Level of Care Code 04496 SUB INP/OBS CARE 3/50MIN Diagnoses Acute encephalopathy G93.40 Dilantin level too low R78.89 Seizure R56.9 Type 2 diabetes mellitus E11.9
[2022-10-28] MEDS: MAGNESIUM OXIDE 400 MG TAB PO SCH (21:21)
[2022-10-28] MEDS: PHENYTOIN SODIUM ER 30 MG CAP PO SCH (21:22)
[2022-10-29] MEDS: LEVOTHYROXINE SODIUM 25 MCG TABLET PO SCH (05:05)
[2022-10-29] MEDS: ACETAMINOPHEN 325 MG TAB PO PRN ×3 (05:05→21:46)
[2022-10-29 07:47] LABS: Basophils # (auto) 0.03 K/uL (0-0.2); Basophils % (auto) 0.2 %; Eosinophils # (auto) 0.03 K/uL (0-0.50); Eosinophils % (auto) 0.2 %; Hematocrit (blood only) 28.7 % (37.0-47.0); Hemoglobin 9.7 g/dl (12.0-16.0); Immature Granulocytes # (auto) 0.08 K/uL (0.01-0.20); Immature Granulocytes % (auto) 0.6 %; Lymphocytes # (auto) 1.64 K/uL (1.2-3.4); Lymphocytes % (auto) 12.4 %; Mean Corpuscular Hemoglobin 33.4 pg (25.0-34.0); Mean Corpuscular Hgb Conc 33.8 g/dL (32.0-36.0); Mean Platelet Volume 9.5 fL (9.4-12.4); Monocytes # (auto) 1.13 K/uL (0.11-0.59); Monocytes % (auto) 8.5 %; Neutrophils # (auto) 10.35 K/uL (1.40-6.50); Neutrophils % (auto) 78.1 %; Platelet Count 212 K/uL (130-400); RDW Coefficient of Variation 13.4 % (11.5-14.5); RDW Standard Deviation 48.3 fL (36.4-46.3); White Blood Count 13.26 K/ul (4.8-10.8)
[2022-10-29 08:03] LABS: Albumin Globulin Ratio 1.1 (0.9-2); Albumin Level 2.9 gm/dl (3.4-5.0); BUN Creatinine Ratio 20.6 (10-20); Bilirubin,Total 0.4 mg/dl (0.2-1.0); Calcium 7.9 mg/dl (8.5-10.1); Est GFR (African American) 95.5 ml/min; Est GFR (Non-African American) 82.4 ml/min; Globulin 2.7 gm/dl (2.5-4.0); Magnesium 1.8 mg/dl (1.7-2.4); Phosphorus 3.2 mg/dl (2.5-4.9); Potassium 3.1 mmol/L (3.5-5.1); Total Protein 5.6 gm/dl (6.0-8.3)
[2022-10-29] MEDS: SODIUM CHLORIDE 1 GM TABLET PO SCH ×2 (08:19→21:40)
[2022-10-29] MEDS: INSULIN ASPART PER UNIT CHARGE SC SCH ×4 (08:19→20:35)
[2022-10-29] MEDS: levETIRAcetam 500 MG TAB PO SCH ×2 (08:20→21:41)
[2022-10-29] MEDS: PHENYTOIN SODIUM ER 100 MG CAP PO SCH ×2 (08:20→21:40)
[2022-10-29] MEDS: CYANOCOBALAMIN (B-12) 500 MCG TABLET PO SCH (08:20)
[2022-10-29] MEDS: POTASSIUM CHLORIDE 10 MEQ TABCR PO SCH ×3 (08:21→21:41)
[2022-10-29] MEDS: ATORVASTATIN 20 MG TAB PO SCH (08:21)
[2022-10-29] MEDS: HEPARIN SOD 5,000 UNIT/0.5 ML VIAL SQ SCH ×2 (08:21→21:40)
--- NOTE | 2022-10-29 14:43 | Hospitalist Progress Note ---
Date of Service October 29, 2022 Assessment & Plan (1) Acute encephalopathy: Plan: Now resolved. Metabolic encephalopathy present on admission. This possibly could have been a postictal state since she was having increased frequency of seizures prior to admission. (2) Seizure: Plan: Neurology consultation and recommendations appreciated. She has now on Keppra along with her usual Dilantin. (3) Hypokalemia: Plan: Continue up titration of oral potassium dosage with serial labs (4) Type 2 diabetes mellitus: Plan: ADA diet. Sliding scale coverage. Continue current medications. (5) Right arm pain: Plan: No underlying DVT seen on venous Doppler study. Trial of parenteral steroid therapy. (6) Hypomagnesemia: Plan: Corrected with parenteral replacement. Serial labs (7) Hypophosphatemia: Plan: Corrected with parenteral replacement. Serial labs Plan It appears she will need SNF placement at the time of discharge. Case management notified Admission and Anticipated Discharge Date Admission Date: October 25, 2022 Subjective Alert and oriented. She appears very weak. She looks like she needs SNF placement at discharge. We will see if she responds to intravenous Solu-Medrol regarding right arm and right hand pain. Venous Doppler right upper extremity negative for DVT. Potassium dosage uptitrated today. Potassium remains low although the magnesium level is now normal and phosphorus is now normal. Glucose 99 this morning Review of Systems Review of Systems: Constitutional-no fever or chills ENT-no blurred vision, no double vision, no epistaxis, no sore throat Respiratory-no cough, no wheezing, no shortness of breath Cardiac-no palpitations, no chest pain, no syncope GI-no nausea, vomiting, diarrhea, melena, hematochezia -no urinary retention, no urinary incontinence, no dysuria, no hematuria Musculoskeletal-right arm and right hand pain. Left ankle pain . No underlying fractures or DVT Skin-no bruising, no rashes, no pruritus Neuro-generalized weakness. Psych-no depression, no anxiety Physical Exam Physical Exam: General-alert and oriented x3, no fevers, no chills HEENT-head atraumatic and normocephalic, pupils equal and reactive to light, extraocular muscles intact Neck-no lymphadenopathy or thyromegaly, trachea midline Chest-clear to auscultation percussion. No rales wheezing or rhonchi Cardiac-regular rate and rhythm, normal S1 and S2 Abdomen-normal bowel sounds, nontender, no hepatosplenomegaly Extremities-diffuse right arm and right hand tenderness with nonpitting edema. Limited range of motion right arm and right wrist and right hand due to d iscomfort. Left ankle pain without significant findings. Limited range of motion Neuro-cranial nerves II through XII intact, motor and sensory function within normal limits, strength symmetrical but generalized weakness, no focal deficits Psych-normal affect, normal mood Results & Data Results & Data Vital Signs (Past 12 Hours) Vital Signs Temp Pulse Pulse Resp BP Pulse Ox O2 Del Method 10/29/22 11:01 36.4 C L 90 18 133/77 92 Room Air 10/29/22 07:39 Room Air 10/29/22 07:37 37.1 C 89 18 123/64 92 Room Air 10/29/22 07:15 93 H 10/29/22 03:34 37 C 101 H 16 127/60 92 Room Air Laboratory Results 10/29/22 07:02 10/29/22 07:02 PG Care Time/CCT Total # of Minutes Spent Total Time Spent with Patient: Total time spent is greater than 50% in coordination of care (as documented) at patient's floor/unit and/or counseling patient: Coding Level of Care Code 59217 SUB INP/OBS CARE 3/50MIN Diagnoses Acute encephalopathy G93.40 Seizure R56.9 Hypokalemia E87.6 Type 2 diabetes mellitus E11.9 Right arm pain M79.601 Hypomagnesemia E83.42 Hypophosphatemia E83.39
[2022-10-29] MEDS: methylPREDNISolone 40 MG in SYRINGE 0 ML IV SCH ×2 (15:46→21:41)
[2022-10-29] MEDS: PHENYTOIN SODIUM ER 30 MG CAP PO SCH (21:40)
[2022-10-29] MEDS: MAGNESIUM OXIDE 400 MG TAB PO SCH (21:40)
[2022-10-30] MEDS: methylPREDNISolone 40 MG in SYRINGE 0 ML IV SCH ×4 (02:32→20:51)
[2022-10-30] MEDS: LEVOTHYROXINE SODIUM 25 MCG TABLET PO SCH (05:56)
[2022-10-30 06:45] LABS: Basophils # (auto) 0.01 K/uL (0-0.2); Basophils % (auto) 0.1 %; Eosinophils # (auto) 0.01 K/uL (0-0.50); Eosinophils % (auto) 0.1 %; Hematocrit (blood only) 28.8 % (37.0-47.0); Hemoglobin 9.7 g/dl (12.0-16.0); Immature Granulocytes # (auto) 0.05 K/uL (0.01-0.20); Immature Granulocytes % (auto) 0.5 %; Lymphocytes # (auto) 0.84 K/uL (1.2-3.4); Lymphocytes % (auto) 8.5 %; Mean Corpuscular Hemoglobin 32.8 pg (25.0-34.0); Mean Corpuscular Hgb Conc 33.7 g/dL (32.0-36.0); Mean Corpuscular Volume 97.3 fL (80.0-100.0); Mean Platelet Volume 9.5 fL (9.4-12.4); Monocytes # (auto) 0.42 K/uL (0.11-0.59); Monocytes % (auto) 4.3 %; Neutrophils # (auto) 8.52 K/uL (1.40-6.50); Neutrophils % (auto) 86.5 %; Platelet Count 239 K/uL (130-400); RDW Coefficient of Variation 13.1 % (11.5-14.5); RDW Standard Deviation 46.9 fL (36.4-46.3); Red Blood Count 2.96 M/uL (4.20-5.40); White Blood Count 9.85 K/ul (4.8-10.8)
[2022-10-30 07:36] LABS: Albumin Globulin Ratio 1.1 (0.9-2); BUN Creatinine Ratio 17.3 (10-20); Bilirubin,Total 0.3 mg/dl (0.2-1.0); Calcium 8.3 mg/dl (8.5-10.1); Creatinine Clr Calc Pharmacy 72.5 ml/min; Est GFR (African American) 101.7 ml/min; Est GFR (Non-African American) 87.7 ml/min; Globulin 2.8 gm/dl (2.5-4.0); Magnesium 1.6 mg/dl (1.7-2.4); Phosphorus 2.8 mg/dl (2.5-4.9); Potassium 3.8 mmol/L (3.5-5.1); Total Protein 5.8 gm/dl (6.0-8.3)
[2022-10-30] MEDS: SODIUM CHLORIDE 1 GM TABLET PO SCH ×2 (08:26→20:53)
[2022-10-30] MEDS: PHENYTOIN SODIUM ER 100 MG CAP PO SCH ×2 (08:26→20:52)
[2022-10-30] MEDS: INSULIN ASPART PER UNIT CHARGE SC SCH ×4 (08:26→20:54)
[2022-10-30] MEDS: CYANOCOBALAMIN (B-12) 500 MCG TABLET PO SCH (08:27)
[2022-10-30] MEDS: POTASSIUM CHLORIDE 10 MEQ TABCR PO SCH (08:27)
[2022-10-30] MEDS: HEPARIN SOD 5,000 UNIT/0.5 ML VIAL SQ SCH ×2 (08:27→20:52)
[2022-10-30] MEDS: levETIRAcetam 500 MG TAB PO SCH ×2 (08:27→20:53)
[2022-10-30] MEDS: ATORVASTATIN 20 MG TAB PO SCH (08:27)
[2022-10-30] MEDS: MAGNESIUM SULFATE / D5W 1 GM/100 ML BAG IV SCH ×2 (09:57→12:01)
[2022-10-30] MEDS: ACETAMINOPHEN 325 MG TAB PO PRN ×2 (13:38→20:51)
--- NOTE | 2022-10-30 15:23 | Hospitalist Progress Note ---
Date of Service October 30, 2022 Assessment & Plan (1) Acute encephalopathy: Plan: Now resolved. Metabolic encephalopathy present on admission. This possibly could have been a postictal state since she was having increased frequency of seizures prior to admission. (2) Seizure: Plan: Neurology consultation and recommendations appreciated. She has now on Keppra along with her usual Dilantin. (3) Hypokalemia: Plan: Now corrected. Oral potassium decreased from twice daily dosing to once daily dosing. Serial labs (4) Type 2 diabetes mellitus: Plan: ADA diet. Sliding scale coverage. Continue current medications. (5) Right arm pain: Plan: No underlying DVT seen on venous Doppler study. Parenteral steroid therapy has helped. Dosage frequency decreased today, October 30. Will eventually wean off. (6) Hypomagnesemia: Plan: Oral and parenteral replacement therapy. Serial labs (7) Hypophosphatemia: Plan: corrected with parenteral replacement. Serial labs Plan It appears she will need SNF placement at the time of discharge. Case management and family aware Admission and Anticipated Discharge Date Admission Date: October 25, 2022 Subjective Alert and oriented. Family is in attendance. The patient is moving the right arm much better today. Solu-Medrol dosage frequency decreased. Potassium now corrected to 3.8. Oral potassium frequency cut down. Parenteral magnesium replacement underway. It appears she will need temporary SNF placement at discharge Review of Systems Review of Systems: Constitutional-no fever or chills ENT-no blurred vision, no double vision, no epistaxis, no sore throat Respiratory-no cough, no wheezing, no shortness of breath Cardiac-no palpitations, no chest pain, no syncope GI-no nausea, vomiting, diarrhea, melena, hematochezia -no urinary retention, no urinary incontinence, no dysuria, no hematuria Musculoskeletal-right arm and right hand pain. Left ankle pain . No underlying fractures or DVT Skin-no bruising, no rashes, no pruritus Neuro-generalized weakness. Psych-no depression, no anxiety Physical Exam Physical Exam: General-alert and oriented x3, no fevers, no chills HEENT-head atraumatic and normocephalic, pupils equal and reactive to light, extraocular muscles intact Neck-no lymphadenopathy or thyromegaly, trachea midline Chest-clear to auscultation percussion. No rales wheezing or rhonchi Cardiac-regular rate and rhythm, normal S1 and S2 Abdomen-normal bowel sounds, nontender, no hepatosplenomegaly Extremities-diffuse right arm and right hand tenderness with nonpitting edema. Limited range of motion right arm and right wrist and right hand due to discomfort. Left ankle pain without significant findings. Limited range of motion Neuro-cranial nerves II through XII intact, motor and sensory function within normal limits, strength symmetrical but generalized weakness, no focal deficits Psych-normal affect, normal mood Results & Data Results & Data Vital Signs (Past 12 Hours) Vital Signs Temp Pulse Pulse Resp BP Pulse Ox O2 Del Method 10/30/22 15:12 81 10/30/22 14:56 36.8 C 73 18 120/54 L 93 Room Air 10/30/22 11:29 36.9 C 78 18 123/55 L 94 Room Air 10/30/22 07:42 36.8 C 81 18 132/74 93 Room Air Laboratory Results 10/30/22 06:10 10/30/22 06:10 PG Care Time/CCT Total # of Minutes Spent Total Time Spent with Patient: Total time spent is greater than 50% in coordination of care (as documented) at patient's floor/unit and/or counseling patient: Coding Level of Care Code 95348 SUB INP/OBS CARE 3/50MIN Diagnoses Acute encephalopathy G93.40 Seizure R56.9 Hypokalemia E87.6 Type 2 diabetes mellitus E11.9 Right arm pain M79.601 Hypomagnesemia E83.42 Hypophosphatemia E83.39
[2022-10-30] MEDS: PHENYTOIN SODIUM ER 30 MG CAP PO SCH (20:52)
[2022-10-30] MEDS: MAGNESIUM OXIDE 400 MG TAB PO SCH (20:54)
[2022-10-31] MEDS: LEVOTHYROXINE SODIUM 25 MCG TABLET PO SCH (05:37)
[2022-10-31 07:12] LABS: Magnesium 1.7 mg/dl (1.7-2.4); Phosphorus 2.7 mg/dl (2.5-4.9)
[2022-10-31] MEDS: methylPREDNISolone 40 MG in SYRINGE 0 ML IV SCH (07:34)
[2022-10-31] MEDS ORDERED: POTASSIUM CHLORIDE 10 MEQ TABCR PO SCH (09:00)
[2022-10-31] MEDS: INSULIN ASPART PER UNIT CHARGE SC SCH ×2 (09:12→13:01)
[2022-10-31] MEDS: SODIUM CHLORIDE 1 GM TABLET PO SCH (09:26)
[2022-10-31] MEDS: PHENYTOIN SODIUM ER 100 MG CAP PO SCH (09:26)
[2022-10-31] MEDS: levETIRAcetam 500 MG TAB PO SCH (09:27)
[2022-10-31] MEDS: CYANOCOBALAMIN (B-12) 500 MCG TABLET PO SCH (09:27)
[2022-10-31] MEDS: ATORVASTATIN 20 MG TAB PO SCH (09:27)
[2022-10-31] MEDS: HEPARIN SOD 5,000 UNIT/0.5 ML VIAL SQ SCH (09:28)
[2022-10-31] MEDS ORDERED: MAGNESIUM OXIDE 400 MG TAB PO SCH (10:00)
--- NOTE | 2022-10-31 11:51 | Discharge Summary ---
Date of Service October 31, 2022 Admission HPI Per Admitting Provider Agata is an 86 year old woman with a past medical history of epilepsy (on Keppra, Dilantin), DM2, CVA (~20 years ago), dyslipidemia, hypothyroidism, GERD, who presented to the emergency room with her daughter with a complaint of confusion x1 day. Specifically, daughter reported she was not responsive to questions, and appeared confused. Daughter denies cough or evidence of congestion, shortness of breath, complaints of pain, nausea, or fever. She was recently discharged from the hospital following an admission for confusion, presumed secondary to phenytoin toxicity (44.[address] head at that time was negative for acute process. She did not have a CTA head/neck or MRI done at that visit. Her phenytoin level trended down on subsequent checks on the day of admission; she was evaluated by neurology who decreased her home dose to 100 mg twice daily, down from 200 mg twice daily. In the ED today, labs were notable for a phenytoin level of 9.4, and magnesium level of 1.5. CXR was negative for acute infectious process. Noncontrast CT head was also negative for acute intracranial process. She received a dose of IV Ativan 1 mg, IV Mg repletion x1 g, and a bolus dose of IV fosphenytoin due to suspicion of seizure. On admission, she responds spontaneously to voice but is unable to respond to questions beyond "yes" or "no" answers. GCS score 13 [[id number]]. Principal Diagnosis Acute exacerbation of seizure disorder, metabolic encephalopathy, hypokalemia, hypomagnesemia, hypophosphatemia Discharge Exam General-alert and oriented x3, no fevers, no chills HEENT-head atraumatic and normocephalic, pupils equal and reactive to light, extraocular muscles intact Neck-no lymphadenopathy or thyromegaly, trachea midline Chest-clear to auscultation percussion. No rales wheezing or rhonchi Cardiac-regular rate and rhythm, normal S1 and S2 Abdomen-normal bowel sounds, nontender, no hepatosplenomegaly Extremities-diffuse right arm and right hand tenderness with nonpitting edema. Limited range of motion right arm and right wrist and right hand due to discomfort. Left ankle pain without significant findings. Limited range of motion Neuro-cranial nerves II through XII intact, motor and sensory function within normal limits, strength symmetrical but generalized weakness, no focal deficits Psych-normal affect, normal mood Discharge Data Allergies Allergy/AdvReac Type Severity Reaction Status Date / Time levofloxacin [From Levaquin] Allergy Severe Possible Verified 10/25/22 17:56 seizure peanut Allergy Intermediate SNEEZE, Verified 10/25/22 17:56 COUGH allopurinol [From Zyloprim] Allergy Unknown Unknown Verified 10/25/22 17:56 lorazepam Allergy Unknown Unknown Verified 10/25/22 17:56 nortriptyline Allergy Unknown Unknown Verified 10/25/22 17:56 Opioids - Morphine Analogues Allergy Unknown Unknown Verified 10/25/22 17:56 Penicillins Allergy Unknown Unknown Verified 10/25/22 17:56 Sulfa (Sulfonamide Allergy Unknown Unknown Verified 10/25/22 17:56 Antibiotics) risedronate sodium AdvReac Intermediate Intolerence Verified 10/25/22 17:56 [From Actonel] Consultations 10/25/22 19:50 ED Decision to Admit Stat 10/25/22 23:32 Consult Neurology Routine Ordered Studies 10/25/22 14:25 CT head/brain wo con Stat 10/25/22 21:37 CTA head w con [CT angio head w con] Stat CTA neck with con [CT angio neck with con] Stat 10/26/22 08:52 MR brain seizure wo/w con Routine 10/28/22 08:00 US venous doppler UE RT Routine Hospital Course (1) Acute encephalopathy: Now resolved. Metabolic encephalopathy present on admission. This possibly could have been a postictal state since she was having increased frequency of seizures prior to admission. (2) Seizure: Neurology consultation and recommendations appreciated. She has now on Keppra along with her usual Dilantin. (3) Hypokalemia: Now corrected. Oral potassium has now been decreased from twice daily dosing to once daily dosing. Serial labs (4) Type 2 diabetes mellitus: ADA diet. Sliding scale coverage. Continue current medications. (5) Right arm pain: No underlying DVT seen on venous Doppler study. Parenteral steroid therapy has helped. Switched to oral prednisone tapering dose at discharge. (6) Hypomagnesemia: Corrected with oral and parenteral replacement therapy. Serial labs . Oral magnesium dosage uptitrated to twice daily dosing (7) Hypophosphatemia: corrected with parenteral replacement. Serial labs Plan Discharge to [facility] care today, October 31. Total Time Total Time Spent Total Time Spent (In Minutes): 40 minutes Discharge Plan Discharge Items Patient Disposition: Transfer Long Term Fac Reason For Visit: ALTERED MENTAL STATUS Discharge Diagnosis: Acute exacerbation seizure disorder, metabolic encephalopathy, hypokalemia, hypomagnesemia, hypophosphatemia Condition on Discharge: Fair Activity: As commented below Activity Comment: As tolerated with assistance Non-emergency contact: Primary Care Provider Call non-emergency contact if: you have any medication questions and your symptoms worsen Follow-up/Referrals: Francesca Tillman MD [Primary Care Provider] - Diet: Carb Consistent or DM2 and Heart Healthy Addtl Attending Provider Instructions: Keppra has been added to the Dilantin for additional seizure control. Magnesium is now twice daily dosing. Prednisone will gradually be tapered off Pending Studies at Discharge: No Stand-Alone Forms: My [facility] Skilled Items Patient informed of condition?: Yes DNR: Yes Discharge Level of Care: Skilled Communicable Disease: No Discharge Prognosis: Stable Lines: None Urinary Catheter: No Medications and DC Order Prescriptions: New Dilantin 30 mg Capsule 30 mg PO QPM Qty: 10 0RF potassium chloride 10 mEq Tablet,Er Particles/Crystals 10 meq PO DAILY Qty: 10 0RF magnesium oxide 400 mg (241.3 mg magnesium) Tablet 400 mg PO BID Qty: 30 0RF prednisone 10 mg tablet See Rx Instructions .ROUTE .COMPLEX Qty: 12 0RF Rx Instructions: 10 mg orally 3 times a day for 2 days, then 10 mg twice a day for 2 days, then 10 mg once a day for 2 days, then stop levetiracetam [Keppra] 500 mg Tablet 1,000 mg PO BID Qty: 0 0RF Continued metformin 500 mg tablet 500 mg PO BID Qty: 180 3RF atorvastatin 20 mg tablet 20 mg PO DAILY Qty: 90 3RF levothyroxine 25 mcg tablet 25 mcg PO DAILY Qty: 90 3RF acetaminophen 325 mg Tablet 650 mg PO Q4H PRN (Reason: pain) Qty: 30 0RF cyanocobalamin (vitamin B-12) 1,000 mcg capsule 1,000 mcg PO DAILY Qty: 30 0RF sodium chloride 1,000 mg Tablet,Soluble 1,000 mg PO BID phenytoin sodium extended [Dilantin Extended] 100 mg capsule 100 mg PO BID Rx Instructions: BRAND NECESSARY diclofenac sodium [Voltaren Arthritis Pain] 1 % gel 2 g topical QID PRN (Reason: Pain) Discontinued magnesium oxide 400 mg (241.3 mg magnesium) tablet 400 mg PO HS Qty: 30 11RF levetiracetam 750 mg tablet 750 mg PO BID Qty: 180 3RF Discharge Orders: Discharge Order (Routine); Ordered 10/31/22 Ordered By: Royce Hemphill Admission Data Admit Date/Time: 10/25/22 21:37 Attending Provider: Royce Hemphill Admit Provider: Mary Jo Tamez Primary Care Provider: Francesca Tillman Other Providers: Shady Eastman ; Reji Montero ; Juan Carlos Montez ; Edelmira Padilla ; Leighann Monaco ; Blanche Ambrocio ; Santiago Willett ; Blanche Clark ; Paolo Turcios ; Holland Good ; Priti Sierra ; Kyra Lipscomb ; Santiago Hall ; Zane Naidu ; [facility] ; [facility] Coding Level of Care Code 89914 INP/OBS DISCH >30 MIN Diagnoses Acute encephalopathy G93.40 Seizure R56.9 Hypokalemia E87.6 Type 2 diabetes mellitus E11.9 Right arm pain M79.601 Hypomagnesemia E83.42 Hypophosphatemia E83.39
[2022-10-31] MEDS ORDERED: INSULIN ASPART PER UNIT CHARGE SC ONE (15:21)
== END 2022-10-31 15:22 | DRG 101 ==
LOC: ED 14:15 → 2N 21:37 → SUATTDRO 21:37 → 2N 22:49

== ENCOUNTER 2023-01-24 10:46 | Inpatient (IN) ==
[2023-01-24] MEDS ORDERED: LORazepam 2 MG/1 ML VIAL ONE (10:49)
[2023-01-24] MEDS ORDERED: SODIUM CHLORIDE 0.9% 500 ML IV ONE (11:04)
[2023-01-24] MEDS: SODIUM CHLORIDE 0.9% 1000ML 1,000 ML IV SCH ×2 (11:12→21:28)
[2023-01-24] MEDS ORDERED: SODIUM CHLORIDE 0.9% 1000ML 500 ML IV ONE (11:24)
--- NOTE | 2023-01-24 11:28 | CT Scan Report ---
CT head/brain wo con CLINICAL HISTORY: Sz Technique: Contiguous axial CT images of the head were acquired from the base of the skull to the royal simona without intravenous contrast administration. Images were viewed in brain, subdural and bone [facility]. Automated dose lowering techniques and/or adjustment according to patient size were utilized for this exam. Comparison: Comparison is made to CTA head 10/25/2022 Findings: Areas of decreased attenuation are present in the periventricular and subcortical white matter bilate rally consistent with small vessel ischemic disease. Generalized cerebral atrophy with commensurate e nlargement of the ventricles, sulci, and cisterns is also present. There is no acute intracranial hem orrhage or evidence of acute territorial infarction. No shift of the midline structures, mass effect, or extra-axial abnormalities are shown. Atherosclerotic calcifications are present in the intracran ial segments of the internal carotid arteries. Imaged portions of the paranasal sinuses and mastoid air cells are clear. The orbits appear normal. There are no acute fractures of the calvaria or scalp swelling. Impression: No acute intracranial hemorrhage, no evidence of acute territorial infarction or other acute intracra nial disease process. ACT 112: Negative or not required by law. Electronically signed by: Todd Burdick M.D. 01/24/2023 11:27 AM
[2023-01-24] MEDS ORDERED: SODIUM CHLORIDE 0.9% 1000ML 1,000 ML IV SCH (11:30)
[2023-01-24 11:51] LABS: Basophils # (auto) 0.03 K/uL (0-0.2); Basophils % (auto) 0.3 %; Eosinophils # (auto) 0.04 K/uL (0-0.50); Eosinophils % (auto) 0.3 %; Hematocrit (blood only) 38.1 % (37.0-47.0); Hemoglobin 12.3 g/dl (12.0-16.0); Immature Granulocytes # (auto) 0.04 K/uL (0.01-0.20); Immature Granulocytes % (auto) 0.3 %; Lymphocytes # (auto) 2.48 K/uL (1.2-3.4); Lymphocytes % (auto) 21.7 %; Mean Corpuscular Hemoglobin 32.9 pg (25.0-34.0); Mean Corpuscular Hgb Conc 32.3 g/dL (32.0-36.0); Mean Corpuscular Volume 101.9 fL (80.0-100.0); Mean Platelet Volume 9.7 fL (9.4-12.4); Monocytes # (auto) 0.91 K/uL (0.11-0.59); Monocytes % (auto) 7.9 %; Neutrophils # (auto) 7.95 K/uL (1.40-6.50); Neutrophils % (auto) 69.5 %; Platelet Count 283 K/uL (130-400); RDW Coefficient of Variation 13.8 % (11.5-14.5); RDW Standard Deviation 51.8 fL (36.4-46.3); Red Blood Count 3.74 M/uL (4.20-5.40); White Blood Count 11.45 K/ul (4.8-10.8)
--- NOTE | 2023-01-24 11:59 | XRay Report ---
XR chest 1V portable CLINICAL HISTORY: weakness TECHNIQUE: Single frontal radiograph of the chest was obtained. Comparison: Comparison is made to chest radiograph 10/25/2022 FINDINGS: No lines and tubes are seen. Calcified aortic knob is seen. The lungs are clear. No evidence of pleur al effusion or pneumothorax. IMPRESSION: No acute chest disease. ACT 112: Negative or not required by law. Electronically signed by: Todd Burdick M.D. 01/24/2023 11:58 AM
[2023-01-24 12:00] LABS: Albumin Globulin Ratio 1.5 (0.9-2); Albumin Level 4.6 gm/dl (3.4-5.0); BUN Creatinine Ratio 11.7 (10-20); Bilirubin,Total 0.3 mg/dl (0.2-1.0); Calcium 9.4 mg/dl (8.6-10.3); Creatinine Clr Calc Pharmacy 55.5 ml/min; Est GFR (African American) 96.3 ml/min; Est GFR (Non-African American) 83.1 ml/min; Globulin 3.1 gm/dl (2.5-4.0); Magnesium 1.9 mg/dl (1.7-2.4); Potassium 4.2 mmol/L (3.5-5.1); Total Protein 7.7 gm/dl (6.0-8.3)
--- NOTE | 2023-01-24 13:24 | Electrocardiogram Report ---
Test Reason : Blood Pressure : / mmHG Vent. Rate : 109 BPM Atrial Rate : 109 BPM P-R Int : 144 ms QRS Dur : 078 ms QT Int : 348 ms P-R-T Axes : 025 -15 012 degrees QTc Int : 468 ms Sinus tachycardia Nonspecific ST and T wave abnormality Abnormal ECG When compared with ECG of 25-OCT-2022 16:06, Vent. rate has increased BY 44 BPM Non-specific change in ST segment in Inferior leads Nonspecific T wave abnormality has replaced inverted T waves in Inferior leads Nonspecific T wave abnormality no longer evident in Anterior leads QT has lengthened Confirmed by Luis Carranza ([id number]) on 01/24/2023 1:24:42 PM Referred By: REFERRED SELF Confirmed By:Winston Carranza
[2023-01-24 13:29] LABS: Appearance Urine Clear (Clear); Bilirubin Urine Negative (Negative); Blood Urine Negative (Negative); Color Urine Yellow; Glucose Urine UA Negative (Negative); Ketones Urine Negative (Negative); Leukocyte Esterase Urine Negative (Negative); Nitrite Urine Negative (Negative); Protein Urine Negative (Negative); Specific Gravity Urine 1.012 (1.000-1.030); Urobilinogen Urine Negative (Negative)
--- NOTE | 2023-01-24 15:31 | Emergency Department Note ---
Impression & Plan Seizure disorder ED Provider Note CHIEF COMPLAINT: Seizure HISTORY OF PRESENT ILLNESS: This 87-year-old female patient with past medical history of encephalopathy, seizure, Dilantin toxicity, hyponatremia, dyslipidemia, GERD, hiatal hernia, stroke, type 2 diabetes presents to the emergency department by EMS with complaints of altered mental status and "staring." Daughter called the ambulance today because she noticed that the mother had not taken her Keppra or Dilantin last night or this morning. She came to the house to check on the patient and she appeared to be sedate but staring. This has been the precursor to the patient's seizures in the past. The patient was transported to the hospital but began seizing on the stretcher in the hallway on the way to her room. At the time my evaluation, the patient is fairly unresponsive, no longer has tonic-clonic movements and is nonver bal/sedate. REVIEW OF SYSTEMS: A review of systems was performed with positives and pertinent negatives listed in the history of present illness. 10 systems were reviewed and are otherwise negative. ALLERGIES: see below MEDICATIONS: see below PMH: see below SOCIAL HISTORY: see below DDx: Epilepsy, infection, hypoglycemia, electrolyte abnormalities, cardiac sources, intracerebral event, trauma, toxicologic, neurologic, syncope, as well as other pathologies. PHYSICAL EXAM: Vital signs reviewed. General: Elderly, chronically ill-appearing 87-year-old female, in no significant distress. HEENT: No scleral icterus, PERRLA, neck supple. Moist mucous membranes Cardiovascular: Regular rate and rhythm, no extra sounds. Pulmonary: Clear to auscultation bilaterally, normal work of breathing. Abdomen: Soft, nontender, nondistended, positive bowel sounds. Musculoskeletal: Atraumatic, no peripheral edema. Neurologic: Patient somnolent, withdraws to painful stimuli. Periodically spontaneously opens eyes but does not verbally respond. Skin: Warm, dry, no rash EMERGENCY DEPARTMENT COURSE/MDM: This patient was evaluated and appeared to be in no significant distress. External medical records were reviewed. IV access was obtained and laboratory work was drawn. The patient was placed on the environmental monitoring specialist with seizure precautions maintained. Patient did not have any further seizure activity clinically. She was loaded with IV Keppra. Laboratory work was obtained and patient was hydrated with normal saline solution. Patient was fairly sedate/postictal at the time of my evaluation. CT imaging of the head was performed and reveals no evidence of acute intracranial abnormality. The remainder of the laboratory work is reassuring with Keppra and Dilantin levels pending. Patient was reevaluated with the daughter at the bedside. She was still nonverbal but much more awake than my initial exam. The patient's case was discussed with the hospitalist service who will evaluate the patient for admission and further management. MONITORING: An order for cardiac monitoring was placed and the patient is noted to be in a sinus tachycardia at 105 beats per minute. RADIOLOGY: CT imaging of the head to my interpretation reveals no evidence of acute intracranial abnormality, otherwise defer to radiology. Chest x-ray to my interpretation reveals no evidence of focal lung consolidation or failure. Otherwise defer to radiology EKG: EKG to my interpretation reveals a sinus tachycardia at [address] and T wave abnormalities. No PVC, no PAC. When compared to previous dated October 25, 2022, ventricular rate has increased by 44 bpm. T wave inversion in the inferior leads has been replaced by nonspecific T wave change. QTc has lengthened. DISPOSITION: Admission Past Med/Surg History Medical History Acid reflux B12 deficiency Carpal tunnel syndrome, right Dyslipidemia Gallstone pancreatitis H/O: CVA (cerebrovascular accident) Hiatal hernia History of stroke 20 YRS AGO Hypothyroidism Idiopathic polyneuropathy Osteoarthritis Osteoporosis Seizure disorder epilepsy, primary generalized seizure disorder--follows with Dr. 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- taking seizure meds- last seizure beginning of 2019 secondary to low p henytoin level in context of tx of infection- has had no interval seizures- clinically stable- follow up six months Type 2 diabetes mellitus Surgical History H/O: hysterectomy (~1965) History of ankle surgery x2--left d/t fracture History of appendectomy (~1965) History of colonoscopy History of ERCP (07/29/20) History of open reduction and internal fixation (ORIF) procedure left wrist--hardware removed History of right cataract extraction History of surgery on left wrist History of tooth extraction all top removed/most of bottom S/P cholecystectomy (07/29/20) S/P endoscopic carpal tunnel release 06/14/2021 Right wrist Family History Father Hypertension Mother Diabetes Myocardial infarction Brother Diabetes Lung disease Brother Diabetes Brother Diabetes Brother Diabetes Brother Diabetes Other No family history of adverse response to anesthesia Denies family history of Ovarian cancer Prostate cancer Breast cancer Colorectal cancer Social History Smoking Status: Never smoker Second Hand Exposure: No; Do You Dip or Chew Tobacco: No; Hx Alcohol Use: No Hx Substance Use: No Preferred Language: [place] Communication Ability: Effective Communication Ability Comment: pt in post-ictal stage Visual Impairment: No Limitations Hearing Ability: Hard of Hearing Planing Machine Operator Required: No Beliefs That Will Affect Care: None marital status: / Current Living Situation: Family Current Living Situation Comment: Lives with Son current occupational status: retired 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 How many Children do You have: 2 Feels Safe at Home: Yes Childhood Exposure to Second-Hand Smoke: Yes Diet: regular Diet Comment: Patient watches serving sizes and counts carefully Dental Care, Regularly: No Physical Activity Frequency: Daily Seatbelt Use: always Sunscreen Use: Yes (when she goes outside ) Gender Identity: Female Assistive Devices: Cane, Walker and Wheelchair Allergies Allergies Allergy/AdvReac Type Severity Reaction Status Date / Time levofloxacin [From Levaquin] Allergy Severe Possible Verified 01/24/23 15:09 seizure peanut Allergy Intermediate SNEEZE, Verified 01/24/23 15:09 COUGH allopurinol [From Zyloprim] Allergy Unknown Unknown Verified 01/24/23 15:09 lorazepam Allergy Unknown Unknown Verified 01/24/23 15:09 nortriptyline Allergy Unknown Unknown Verified 01/24/23 15:09 Opioids - Morphine Analogues Allergy Unknown Unknown Verified 01/24/23 15:09 Penicillins Allergy Unknown Unknown Verified 01/24/23 15:09 Sulfa (Sulfonamide Allergy Unknown Unknown Verified 01/24/23 15:09 Antibiotics) risedronate sodium AdvReac Intermediate Intolerence Verified 01/24/23 15:09 [From Actonel] Home Meds Home Medications Medication Instructions Recorded Confirmed diclofenac sodium 1 % topical gel 2 g topical QID PRN Pain 10/16/22 01/24/23 (Voltaren Arthritis Pain) sodium chloride 1,000 mg soluble 1,000 mg PO BID 10/16/22 01/24/23 tablet Previous Rx's Medication Instructions Recorded acetaminophen 325 mg tablet 650 mg PO Q4H PRN pain #30 tabs 11/16/21 cyanocobalamin (vitamin B-12) 1,000 mcg PO DAILY #30 caps 11/16/21 1,000 mcg capsule metformin 500 mg tablet 500 mg PO BID #180 tabs 03/01/22 atorvastatin 20 mg tablet 20 mg PO DAILY #90 tabs 05/22/22 levothyroxine 25 mcg tablet 25 mcg PO DAILY #90 tabs 09/06/22 magnesium oxide 400 mg (241.3 mg 400 mg PO BID #30 tabs 10/31/22 magnesium) tablet Dilantin 30 mg capsule (phenytoin 30 mg PO QPM #90 caps 12/02/22 sodium extended) levetiracetam 1,000 mg tablet 1,000 mg PO BID #180 tabs 12/02/22 Dilantin Extended 100 mg capsule 100 mg PO BID 90 days #180 caps 12/20/22 (phenytoin sodium extended) Results & Data (ED) Vital Signs Vital Signs - 24 hr 01/24/23 10:36 01/24/23 11:56 01/24/23 11:00 Temperature 36.6 C Temperature Source Oral Pulse Rate 113 H 92 H Pulse Rate from SpO2 Sensor Respiratory Rate 26 H Blood Pressure 161/78 H Blood Pressure Mean 105 Pulse Oximetry 98 91 Oxygen Delivery Method Nasal Cannula Room Air Oxygen Flow Rate 0 Sepsis Recent Fever Within 48 Hours No Sepsis New/Unexplained Change in Mental Status Yes Sepsis Action Taken by Nursing Physician Notified Oxygen Flow Rate - Titration 2 Pulse Oximetry Post Tiitration 94 01/24/23 10:57 01/24/23 11:00 01/24/23 11:10 Temperature Temperature Source Pulse Rate 108 H 107 H 106 H Pulse Rate from SpO2 Sensor 107 H 107 H 106 H Respiratory Rate 26 H 21 20 Blood Pressure Blood Pressure Mean Pulse Oximetry 98 99 100 Oxygen Delivery Method Oxygen Flow Rate Sepsis Recent Fever Within 48 Hours Sepsis New/Unexplained Change in Mental Status Sepsis Action Taken by Nursing Oxygen Flow Rate - Titration Pulse Oximetry Post Tiitration 01/24/23 11:25 01/24/23 11:30 01/24/23 11:40 Temperature Temperature Source Pulse Rate 101 H 96 H Pulse Rate from SpO2 Sensor 96 H 100 H 95 H Respiratory Rate 18 17 Blood Pressure Blood Pressure Mean Pulse Oximetry 100 100 93 Oxygen Delivery Method Oxygen Flow Rate Sepsis Recent Fever Within 48 Hours Sepsis New/Unexplained Change in Mental Status Sepsis Action Taken by Nursing Oxygen Flow Rate - Titration Pulse Oximetry Post Tiitration 01/24/23 11:50 01/24/23 12:00 01/24/23 12:10 Temperature Temperature Source Pulse Rate 91 H 93 H 99 H Pulse Rate from SpO2 Sensor 90 93 H 99 H Respiratory Rate 17 17 23 Blood Pressure Blood Pressure Mean Pulse Oximetry 95 98 100 Oxygen Delivery Method Oxygen Flow Rate Sepsis Recent Fever Within 48 Hours Sepsis New/Unexplained Change in Mental Status Sepsis Action Taken by Nursing Oxygen Flow Rate - Titration Pulse Oximetry Post Tiitration 01/24/23 12:11 01/24/23 12:11 01/24/23 12:20 Temperature Temperature Source Pulse Rate 96 H 98 H Pulse Rate from SpO2 Sensor 97 H 96 H Respiratory Rate 18 18 Blood Pressure 148/89 H Blood Pressure Mean 104 Pulse Oximetry 99 96 Oxygen Delivery Method Oxygen Flow Rate Sepsis Recent Fever Within 48 Hours Sepsis New/Unexplained Change in Mental Status Sepsis Action Taken by Nursing Oxygen Flow Rate - Titration Pulse Oximetry Post Tiitration 01/24/23 12:30 01/24/23 12:30 01/24/23 12:40 Temperature Temperature Source Pulse Rate 89 88 Pulse Rate from SpO2 Sensor 90 89 Respiratory Rate 19 17 Blood Pressure 109/87 Blood Pressure Mean 88 Pulse Oximetry 96 95 Oxygen Delivery Method Oxygen Flow Rate Sepsis Recent Fever Within 48 Hours Sepsis New/Unexplained Change in Mental Status Sepsis Action Taken by Nursing Oxygen Flow Rate - Titration Pulse Oximetry Post Tiitration 01/24/23 12:50 01/24/23 13:00 01/24/23 13:02 Temperature Temperature Source Pulse Rate 88 97 H 107 H Pulse Rate from SpO2 Sensor 91 H 95 H 106 H Respiratory Rate 17 18 17 Blood Pressure Blood Pressure Mean Pulse Oximetry 95 95 97 Oxygen Delivery Method Oxygen Flow Rate Sepsis Recent Fever Within 48 Hours Sepsis New/Unexplained Change in Mental Status Sepsis Action Taken by Nursing Oxygen Flow Rate - Titration Pulse Oximetry Post Tiitration 01/24/23 13:10 01/24/23 13:16 01/24/23 13:16 Temperature Temperature Source Pulse Rate 105 H 104 H Pulse Rate from SpO2 Sensor 101 H Respiratory Rate 19 25 H Blood Pressure 161/76 H Blood Pressure Mean 92 Pulse Oximetry 98 Oxygen Delivery Method Oxygen Flow Rate Sepsis Recent Fever Within 48 Hours Sepsis New/Unexplained Change in Mental Status Sepsis Action Taken by Nursing Oxygen Flow Rate - Titration Pulse Oximetry Post Tiitration 01/24/23 13:20 01/24/23 13:30 01/24/23 13:32 Temperature Temperature Source Pulse Rate 95 H 103 H 95 H Pulse Rate from SpO2 Sensor 95 H 103 H 96 H Respiratory Rate 20 22 19 Blood Pressure Blood Pressure Mean Pulse Oximetry 100 100 100 Oxygen Delivery Method Oxygen Flow Rate Sepsis Recent Fever Within 48 Hours Sepsis New/Unexplained Change in Mental Status Sepsis Action Taken by Nursing Oxygen Flow Rate - Titration Pulse Oximetry Post Tiitration 01/24/23 13:32 01/24/23 13:40 01/24/23 13:50 Temperature Temperature Source Pulse Rate 101 H 92 H Pulse Rate from SpO2 Sensor 100 H 92 H Respiratory Rate 23 20 Blood Pressure 184/88 H Blood Pressure Mean 111 Pulse Oximetry 100 100 Oxygen Delivery Method Oxygen Flow Rate Sepsis Recent Fever Within 48 Hours Sepsis New/Unexplained Change in Mental Status Sepsis Action Taken by Nursing Oxygen Flow Rate - Titration Pulse Oximetry Post Tiitration Home Medications Current Medication List: was personally reviewed by me Laboratory Data Attestation: I reviewed the patient's lab results. 01/24/23 11:01 01/24/23 11:01 Lab Results 01/24/23 01/24/23 01/24/23 Range/Units 11:01 11:01 12:04 WBC 11.45 H (4.8-10.8) K/ul RBC 3.74 L (4.20-5.40) M/uL Hgb 12.3 (12.0-16.0) g/dl Hct 38.1 (37.0-47.0) % MCV 101.9 H (80.0-100.0) fL MCH 32.9 (25.0-34.0) pg MCHC 32.3 (32.0-36.0) g/dL RDW Std Deviation 51.8 H (36.4-46.3) fL RDW Coeff of Ana 13.8 (11.5-14.5) % Plt Count 283 (130-400) K/uL MPV 9.7 (9.4-12.4) fL Immature Gran % (Auto) 0.3 % Neut % (Auto) 69.5 % Lymph % (Auto) 21.7 % [place] % (Auto) 7.9 % Eos % (Auto) 0.3 % Baso % (Auto) 0.3 % Neut # (Auto) 7.95 H (1.40-6.50) K/uL Lymph # (Auto) 2.48 (1.2-3.4) K/uL [place] # (Auto) 0.91 H (0.11-0.59) K/uL Eos # (Auto) 0.04 (0-0.50) K/uL Baso # (Auto) 0.03 (0-0.2) K/uL Immature Gran # (Auto) 0.04 (0.01-0.20) K/uL Sodium 137 (136-145) mmol/L Potassium 4.2 (3.5-5.1) mmol/L Chloride 102 (98-107) mmol/L Carbon Dioxide 21 (21-32) mmol/L Anion Gap 14 H (3-11) BUN 7 (6-23) mg/dl Creatinine 0.60 (0.6-1.2) mg/dl Est Cr Clr Drug Dosing 55.5 ml/min Est GFR ( Amer) 96.3 ml/min Est GFR (Non-Af Amer) 83.1 ml/min BUN/Creatinine Ratio 11.7 (10-20) Glucose 152 H (70-99(Fasting)) mg/dl Lactate (0.4-2.0) mmol/L Calcium 9.4 (8.6-10.3) mg/dl Phosphorus (2.5-4.9) mg/dl Magnesium 1.9 (1.7-2.4) mg/dl Total Bilirubin 0.3 (0.2-1.0) mg/dl AST 16 (13-39) U/L ALT 10 (7-52) U/L Alkaline Phosphatase 96 (34-104) U/L Total Protein 7.7 (6.0-8.3) gm/dl Albumin 4.6 (3.4-5.0) gm/dl Globulin 3.1 (2.5-4.0) gm/dl Albumin/Globulin Ratio 1.5 (0.9-2) TSH (0.300-4.500) uIu/ml Urine Color Urine Appearance (Clear) Urine pH (4.5-7.5) Ur Specific [place] (1.000-1.030) Urine Protein (Negative) Urine Glucose (UA) (Negative) Urine Ketones (Negative) Urine Blood (Negative) Urine Nitrite (Negative) Urine Bilirubin (Negative) Urine Urobilinogen (Negative) Ur Leukocyte Esterase (Negative) Phenytoin (10-20) mcg/ml SARS-CoV-2, RNA, NAAT NEGATIVE (NEGATIVE) 01/24/23 01/24/23 01/24/23 Range/Units 12:05 12:05 13:13 WBC (4.8-10.8) K/ul RBC (4.20-5.40) M/uL Hgb (12.0-16.0) g/dl Hct (37.0-47.0) % MCV (80.0-100.0) fL MCH (25.0-34.0) pg MCHC (32.0-36.0) g/dL RDW Std Deviation (36.4-46.3) fL RDW Coeff of Ana (11.5-14.5) % Plt Count (130-400) K/uL MPV (9.4-12.4) fL Immature Gran % (Auto) % Neut % (Auto) % Lymph % (Auto) % [place] % (Auto) % Eos % (Auto) % Baso % (Auto) % Neut # (Auto) (1.40-6.50) K/uL Lymph # (Auto) (1.2-3.4) K/uL [place] # (Auto) (0.11-0.59) K/uL Eos # (Auto) (0-0.50) K/uL Baso # (Auto) (0-0.2) K/uL Immature Gran # (Auto) (0.01-0.20) K/uL Sodium (136-145) mmol/L Potassium (3.5-5.1) mmol/L Chloride (98-107) mmol/L Carbon Dioxide (21-32) mmol/L Anion Gap (3-11) BUN (6-23) mg/dl Creatinine (0.6-1.2) mg/dl Est Cr Clr Drug Dosing ml/min Est GFR ( Amer) ml/min Est GFR (Non-Af Amer) ml/min BUN/Creatinine Ratio (10-20) Glucose (70-99(Fasting)) mg/dl Lactate 3.2 H* (0.4-2.0) mmol/L Calcium (8.6-10.3) mg/dl Phosphorus (2.5-4.9) mg/dl Magnesium (1.7-2.4) mg/dl Total Bilirubin (0.2-1.0) mg/dl AST (13-39) U/L ALT (7-52) U/L Alkaline Phosphatase (34-104) U/L Total Protein (6.0-8.3) gm/dl Albumin (3.4-5.0) gm/dl Globulin (2.5-4.0) gm/dl Albumin/Globulin Ratio (0.9-2) TSH 0.601 (0.300-4.500) uIu/ml Urine Color Yellow Urine Appearance Clear (Clear) Urine pH 7.0 (4.5-7.5) Ur Specific [place] 1.012 (1.000-1.030) Urine Protein Negative (Negative) Urine Glucose (UA) Negative (Negative) Urine Ketones Negative (Negative) Urine Blood Negative (Negative) Urine Nitrite Negative (Negative) Urine Bilirubin Negative (Negative) Urine Urobilinogen Negative (Negative) Ur Leukocyte Esterase Negative (Negative) Phenytoin (10-20) mcg/ml SARS-CoV-2, RNA, NAAT (NEGATIVE) 01/24/23 01/24/23 01/24/23 Range/Units 14:04 14:04 14:04 WBC (4.8-10.8) K/ul RBC (4.20-5.40) M/uL Hgb (12.0-16.0) g/dl Hct (37.0-47.0) % MCV (80.0-100.0) fL MCH (25.0-34.0) pg MCHC (32.0-36.0) g/dL RDW Std Deviation (36.4-46.3) fL RDW Coeff of Ana (11.5-14.5) % Plt Count (130-400) K/uL MPV (9.4-12.4) fL Immature Gran % (Auto) % Neut % (Auto) % Lymph % (Auto) % [place] % (Auto) % Eos % (Auto) % Baso % (Auto) % Neut # (Auto) (1.40-6.50) K/uL Lymph # (Auto) (1.2-3.4) K/uL [place] # (Auto) (0.11-0.59) K/uL Eos # (Auto) (0-0.50) K/uL Baso # (Auto) (0-0.2) K/uL Immature Gran # (Auto) (0.01-0.20) K/uL Sodium (136-145) mmol/L Potassium (3.5-5.1) mmol/L Chloride (98-107) mmol/L Carbon Dioxide (21-32) mmol/L Anion Gap (3-11) BUN (6-23) mg/dl Creatinine (0.6-1.2) mg/dl Est Cr Clr Drug Dosing ml/min Est GFR ( Amer) ml/min Est GFR (Non-Af Amer) ml/min BUN/Creatinine Ratio (10-20) Glucose (70-99(Fasting)) mg/dl Lactate 1.3 (0.4-2.0) mmol/L Calcium (8.6-10.3) mg/dl Phosphorus 3.4 (2.5-4.9) mg/dl Magnesium (1.7-2.4) mg/dl Total Bilirubin (0.2-1.0) mg/dl AST (13-39) U/L ALT (7-52) U/L Alkaline Phosphatase (34-104) U/L Total Protein (6.0-8.3) gm/dl Albumin (3.4-5.0) gm/dl Globulin (2.5-4.0) gm/dl Albumin/Globulin Ratio (0.9-2) TSH (0.300-4.500) uIu/ml Urine Color Urine Appearance (Clear) Urine pH (4.5-7.5) Ur Specific [place] (1.000-1.030) Urine Protein (Negative) Urine Glucose (UA) (Negative) Urine Ketones (Negative) Urine Blood (Negative) Urine Nitrite (Negative) Urine Bilirubin (Negative) Urine Urobilinogen (Negative) Ur Leukocyte Esterase (Negative) Phenytoin 3.1 L (10-20) mcg/ml SARS-CoV-2, RNA, NAAT (NEGATIVE) Administered Medications Acetaminophen (Acetaminophen 500 Mg Tab) 1,000 mg PO Q8H ARIES Stop: 02/25/23 20:59 Last Admin: 01/29/23 06:07 Dose: Not Given Documented By: Admin: 01/28/23 19:55 Dose: 1,000 mg Documented By: Admin: 01/28/23 12:05 Dose: 1,000 mg Documented By: Admin: 01/28/23 05:11 Dose: 1,000 mg Documented By: Admin: 01/27/23 20:08 Dose: 1,000 mg Documented By: Admin: 01/27/23 14:09 Dose: 1,000 mg Documented By: Admin: 01/27/23 05:30 Dose: 1,000 mg Documented By: Admin: 01/26/23 20:22 Dose: 1,000 mg Documented By: DOLORES Atorvastatin Calcium (Atorvastatin 20 Mg Tab) 20 mg PO DAILY ARIES Stop: 02/24/23 08:59 Last Admin: 01/29/23 08:39 Dose: 20 mg Documented By: Admin: 01/28/23 09:05 Dose: 20 mg Documented By: Admin: 01/27/23 07:42 Dose: 20 mg Documented By: Admin: 01/26/23 08:23 Dose: 20 mg Documented By: Admin: 01/25/23 10:05 Dose: 20 mg Documented By: CORINA Diclofenac Sodium (Diclofenac Sod 1% Gel 100 Gm Tube) 2 gm EXT QID ARIES; Protocol Stop: 02/27/23 20:59 Last Admin: 01/29/23 08:37 Dose: 2 gm Documented By: Admin: 01/28/23 20:00 Dose: 2 gm Documented By: ANGELICA Enoxaparin Sodium (Enoxaparin Inj 40 Mg/0.4 Ml Syr) 40 mg SQ Q24H ARIES Stop: 02/23/23 20:59 Last Admin: 01/28/23 19:54 Dose: 40 mg Documented By: Admin: 01/27/23 20:08 Dose: 40 mg Documented By: Admin: 01/26/23 20:22 Dose: 40 mg Documented By: Admin: 01/25/23 20:36 Dose: 40 mg Documented By: Admin: 01/24/23 21:35 Dose: 40 mg Documented By: DOLORES Insulin Aspart (Insulin Aspart Per Unit Charge) 0 units SC ACHS ARIES Stop: 02/24/23 20:59 Last Admin: 01/29/23 09:11 Dose: Not Given Documented By: Admin: 01/28/23 20:26 Dose: Not Given Documented By: Admin: 01/28/23 17:33 Dose: Not Given Documented By: DAYA Co-signed By: ANA MARIA Admin: 01/28/23 12:17 Dose: Not Given Documented By: DAYA Co-signed By: ANA MARIA Admin: 01/28/23 08:09 Dose: Not Given Documented By: BARBARA Co-signed By: GENARO Admin: 01/27/23 20:04 Dose: Not Given Documented By: Admin: 01/27/23 16:26 Dose: Not Given Documented By: Admin: 01/27/23 12:15 Dose: Not Given Documented By: Admin: 01/27/23 07:45 Dose: Not Given Documented By: Admin: 01/26/23 20:18 Dose: Not Given Documented By: Admin: 01/26/23 16:30 Dose: Not Given Documented By: BARBARA Co-signed By: GENARO Admin: 01/26/23 12:03 Dose: Not Given Documented By: BARBARA Co-signed By: GENARO Admin: 01/26/23 08:21 Dose: Not Given Documented By: Admin: 01/25/23 20:18 Dose: Not Given Documented By: DOLORES Levetiracetam (Levetiracetam 500 Mg Tab) 1,000 mg PO BID ARIES Stop: 02/24/23 20:59 Last Admin: 01/29/23 08:38 Dose: 1,000 mg Documented By: Admin: 01/28/23 19:56 Dose: 1,000 mg Documented By: Admin: 01/28/23 09:05 Dose: 1,000 mg Documented By: Admin: 01/27/23 20:10 Dose: 1,000 mg Documented By: Admin: 01/27/23 07:42 Dose: 1,000 mg Documented By: Admin: 01/26/23 20:23 Dose: 1,000 mg Documented By: Admin: 01/26/23 08:23 Dose: 1,000 mg Documented By: Admin: 01/25/23 20:36 Dose: 1,000 mg Documented By: DOLORES Levothyroxine Sodium (Levothyroxine Sodium 25 Mcg Tablet) 25 mcg PO DAILY ARIES Stop: 02/24/23 08:59 Last Admin: 01/29/23 08:38 Dose: 25 mcg Documented By: Admin: 01/28/23 09:05 Dose: 25 mcg Documented By: Admin: 01/27/23 07:42 Dose: 25 mcg Documented By: Admin: 01/26/23 08:22 Dose: 25 mcg Documented By: Admin: 01/25/23 10:05 Dose: 25 mcg Documented By: CORINA Magnesium Oxide (Magnesium Oxide 400 Mg Tab) 400 mg PO BID ARIES Stop: 02/23/23 20:59 Last Admin: 01/29/23 08:37 Dose: 400 mg Documented By: Admin: 01/28/23 20:47 Dose: 400 mg Documented By: Admin: 01/28/23 09:05 Dose: 400 mg Documented By: Admin: 01/27/23 20:10 Dose: 400 mg Documented By: Admin: 01/27/23 07:41 Dose: 400 mg Documented By: Admin: 01/26/23 20:22 Dose: 400 mg Documented By: Admin: 01/26/23 08:22 Dose: 400 mg Documented By: Admin: 01/25/23 20:37 Dose: 400 mg Documented By: Admin: 01/25/23 10:05 Dose: 400 mg Documented By: Admin: 01/24/23 21:29 Dose: Not Given Documented By: DOLORES Phenytoin Sodium (Phenytoin Sodium Er 100 Mg Cap) 100 mg PO BID ARIES Stop: 02/24/23 08:59 Last Admin: 01/29/23 08:38 Dose: 100 mg Documented By: Admin: 01/28/23 19:56 Dose: 100 mg Documented By: Admin: 01/28/23 09:05 Dose: 100 mg Documented By: Admin: 01/27/23 20:10 Dose: 100 mg Documented By: Admin: 01/27/23 07:42 Dose: 100 mg Documented By: Admin: 01/26/23 20:23 Dose: 100 mg Documented By: Admin: 01/26/23 08:22 Dose: 100 mg Documented By: Admin: 01/25/23 20:37 Dose: 100 mg Documented By: Admin: 01/25/23 10:05 Dose: 100 mg Documented By: CORINA Phenytoin Sodium (Phenytoin Sodium Er 30 Mg Cap) 30 mg PO QPM ARIES Stop: 02/24/23 21:29 Last Admin: 01/28/23 19:57 Dose: 30 mg Documented By: Admin: 01/27/23 20:09 Dose: 30 mg Documented By: Admin: 01/26/23 20:23 Dose: 30 mg Documented By: Admin: 01/25/23 20:37 Dose: 30 mg Documented By: DOLORES Sodium Chloride (Sodium Chloride 1 Gm Tablet) 1 gm PO BID ARIES Stop: 02/23/23 20:59 Last Admin: 01/29/23 08:39 Dose: 1 gm Documented By: Admin: 01/28/23 19:56 Dose: 1 gm Documented By: Admin: 01/28/23 09:05 Dose: 1 gm Documented By: Admin: 01/27/23 20:10 Dose: 1 gm Documented By: Admin: 01/27/23 07:42 Dose: 1 gm Documented By: Admin: 01/26/23 20:23 Dose: 1 gm Documented By: Admin: 01/26/23 08:22 Dose: 1 gm Documented By: Admin: 01/25/23 20:37 Dose: 1 gm Documented By: Admin: 01/25/23 10:05 Dose: 1 gm Documented By: Admin: 01/24/23 21:28 Dose: Not Given Documented By: DOLORES Discontinued Medications Acetaminophen (Acetaminophen 500 Mg Tab) 1,000 mg PO Q8H PRN PRN Reason: Pain Stop: 02/04/23 12:28 Last Admin: 01/26/23 12:59 Dose: 1,000 mg Documented By: Admin: 01/25/23 12:37 Dose: 1,000 mg Documented By: CORINA Levetiracetam 2,000 mg/ Sodium (Chloride) 270 mls @ 999 mls/hr IV NOW STA Stop: 01/24/23 11:09 Last Infusion: 01/24/23 11:25 Dose: 0 mls/hr Documented By: Admin: 01/24/23 11:07 Dose: 999 mls/hr Documented By: [employer] MACHINE OPERATOR Sodium Chloride (Nss) 500 mls @ 999 mls/hr IV .Q31M ONE Stop: 01/24/23 11:34 Last Infusion: 01/24/23 11:59 Dose: 0 mls/hr Documented By: C[employer] P[employer] MACHINE OPERATOR Admin: 01/24/23 11:08 Dose: 999 mls/hr Documented By: C[employer] P[employer]ING MACHINE OPERATOR Sodium Chloride (Nss 1000ml) 1,000 mls @ 125 mls/hr IV .Q8H ARIES Stop: 02/23/23 11:14 Last Admin: 01/24/23 21:28 Dose: Not Given Documented By: Infusion: 01/24/23 17:15 Dose: 0 mls/hr Documented By: CIGARETTE PACKING MACHINE OPERATOR Admin: 01/24/23 11:12 Dose: 125 mls/hr Documented By: CIGARETTE PACKING MACHINE OPERATOR Sodium Chloride (Nss 1000ml) 1,000 mls @ 125 mls/hr IV .Q8H ARIES Stop: 01/24/23 19:29 Last Admin: 01/24/23 11:52 Dose: Not Given Documented By: CIGARETTE PACKING MACHINE OPERATOR Sodium Chloride (Nss 1000ml) 500 mls @ 999 mls/hr IV .Q31M ONE Stop: 01/24/23 11:54 Last Admin: 01/24/23 11:58 Dose: Not Given Documented By: CIGARETTE PACKING MACHINE OPERATOR Fosphenytoin Sodium 900 mgpe/ (Sodium Chloride) 68 mls @ 420 mls/hr IV NOW STA Stop: 01/24/23 16:16 Last Infusion: 01/24/23 17:37 Dose: 0 mls/hr Documented By: CIGARETTE PACKING MACHINE OPERATOR Admin: 01/24/23 17:15 Dose: 420 mls/hr Documented By: CIGARETTE PACKING MACHINE OPERATOR Lactated Ringer's (Lr) 1,000 mls @ 80 mls/hr IV .[id number] ARIES Stop: 01/25/23 04:44 Last Infusion: 01/25/23 07:22 Dose: 0 mls/hr Documented By: Infusion: 01/24/23 19:51 Dose: 80 mls/hr Documented By: Admin: 01/24/23 17:14 Dose: 80 mls/hr Documented By: CIGARETTE PACKING MACHINE OPERATOR Levetiracetam 1,000 mg/ Sodium (Chloride) 110 mls @ 440 mls/hr IV BID ARIES Stop: 02/23/23 20:59 Last Infusion: 01/25/23 10:36 Dose: 0 mls/hr Documented By: Admin: 01/25/23 09:19 Dose: 440 mls/hr Documented By: Infusion: 01/24/23 21:50 Dose: 0 mls/hr Documented By: Admin: 01/24/23 21:35 Dose: 440 mls/hr Documented By: DOLORES Insulin Aspart (Insulin Aspart Per Unit Charge) 0 units SC Q4H [facility] Stop: 02/23/23 16:29 Last Admin: 01/25/23 17:09 Dose: Not Given Documented By: Admin: 01/25/23 12:10 Dose: Not Given Documented By: Admin: 01/25/23 09:18 Dose: Not Given Documented By: Admin: 01/25/23 04:47 Dose: Not Given Documented By: Admin: 01/25/23 00:46 Dose: Not Given Documented By: Admin: 01/24/23 19:52 Dose: Not Given Documented By: Admin: 01/24/23 17:23 Dose: Not Given Documented By: CIGARETTE PACKING MACHINE OPERATOR Insulin Glargine (Lantus Per Unit Charge) 5 units SQ BID [facility] Stop: 02/23/23 20:59 Last Admin: 01/25/23 20:36 Dose: 5 units Documented By: DOLORES Co-signed By: KHALIDA Admin: 01/25/23 09:43 Dose: Not Given Documented By: Admin: 01/24/23 21:35 Dose: 5 units Documented By: DOLORES Co-signed By: RICK Lorazepam (Lorazepam 2 Mg/1 Ml Vial) Confirm Administered Dose 2 mg .ROUTE .STK- MED ONE Stop: 01/24/23 10:50 Last Admin: 01/24/23 11:30 Dose: Not Given Documented By: CIGARETTE PACKING MACHINE OPERATOR Imaging Data Radiologist's Impression: Head CT 01/24/23 10:53 CT head/brain wo con CLINICAL HISTORY: Sz Technique: Contiguous axial CT images of the head were acquired from the base of the skull to the vertex without intravenous contrast administration. Images were viewed in brain, subdural and bone windows. Automated dose lowering techniques and/or adjustment according to patient size were utilized for this exam. Comparison: Comparison is made to CTA head 10/25/2022 Findings: Areas of decreased attenuation are present in the periventricular and subcortical white matter bilaterally consistent with small vessel ischemic disease. Generalized cerebral atrophy with commensurate enlargement of the ventricles, sulci, and cisterns is also present. There is no acute intracranial hemorrhage or evidence of acute territorial infarction. No shift of the midline structures, mass effect, or extra-axial abnormalities are shown. Atherosclerotic calcifications are present in the intracranial segments of the internal carotid arteries. Imaged portions of the paranasal sinuses and mastoid air cells are clear. The orbits appear normal. There are no acute fractures of the calvaria or scalp swelling. Impression: No acute intracranial hemorrhage, no evidence of acute territorial infarction or other acute intracranial disease process. ACT 112: Negative or not required by law. Electronically signed by: Todd Burdick M.D. 01/24/2023 11:27 AM Chest X-Ray 01/24/23 11:24 XR chest 1V portable CLINICAL HISTORY: weakness TECHNIQUE: Single frontal radiograph of the chest was obtained. Comparison: Comparison is made to chest radiograph 10/25/2022 FINDINGS: No lines and tubes are seen. Calcified aortic knob is seen. The lungs are clear. No evidence of pleural effusion or pneumothorax. IMPRESSION: No acute chest disease. ACT 112: Negative or not required by law. Electronically signed by: Todd Burdick M.D. 01/24/2023 11:58 AM Discharge Plan Visit Data Chief Complaint: Seizure Stated Complaint: LETHARGIC ED Provider: Ava Vides Discharge Problem: Seizure disorder Patient Disposition: Admitted As Inpatient Discharge Instructions Interventions: ED Discharge Assessment Last Done: 01/24/23 19:45
--- NOTE | 2023-01-24 15:38 | History & Physical Report ---
Date of Service January 24, 2023 Assessment & Plan (1) Seizure: Plan: -Admit to the PCU on tele and pulse oximetry -Currently stable and without active seizure activity -Missed her doses of Dilantin and Phenytoin last night per her daughter, was noted to have seizure-activity on arrival to the ED -CT of the head is negative, Chest xray negative -S/P 2gm IV keppra and 1L NSS in the ED -Phenytoin level today is low at 3.1 -Discussed the patient with Dr. Mcguire, instructor product inspection Neurologist today, appreciate his help and quick response -Recommended giving her a loading dose of 15 mg/kg IV fosphenytoin with her current low levels >Spoke to Pharmacy, will give 900 mg IV Fosphenytoin -For now will continue her on 1000 mg IV Keppra BID until she is stable for PO intake -Monitor am Phenytoin level and restart oral Phenytoin when stable for PO intake -BL SCD's and SQ lovenox for DVT PPX -Will start LR at 80 mL/hr while NPO, will start diet when she passes bedside dysphagia screen -AM CBC, CMP, Phenytoin level (2) Hypothyroidism: Plan: -Continue levothyroxine (3) Type 2 diabetes mellitus: Plan: -Hold metformin -Monitor BSG q4h while NPO, goal is 110-160 -Start 5 units lantus BID, CF 50 q4h for now -Start DM II when able to safely eat -Adjust regimen as needed (4) History of stroke: Plan: -Continue statin (5) Hyponatremia: Plan: -Chronic -Stable today -Continue BID PO Sodium chloride when able Plan The patient was discussed with Dr. Pickens at the time of the admission History of Present Illness Chief Complaint: Seizures Primary Care Provider: Francesca Tillman MD Agata is an 86 year old woman with a past medical history of epilepsy (on Keppra, Dilantin), DM2, CVA (~20 years ago), dyslipidemia, hypothyroidism, GERD who presented to the [facility] ED on 01/24/23 with recent seizures today due to missed antiepileptic medications last night. The patient reportedly was seizing while being wheeled to her ED room on arrival. In the ED the patient was noted to be hypertensive at 184/88, tachycardic with HR in the low 100's, but otherwise stable. Labs were significant for a leukocytosis of 11, MCV of 101, AG of 14 with bicarb of 21, glucose of 152, initial lactate of 3.2, negative UA and covid [address] of the head/brain wo con was read as "No acute intracranial hemorrhage, no evidence of acute territorial infarction or other acute intracranial disease process.". Chest xray was read as "No acute chest disease.". Prior to admission the patient was given 1L NSS and 2gm IV Keppra. At the time of the exam the patient was lying in bed and awake, no current seizure activity. History was unable to be obtained from the patient at this time as she is known to have prolonged post-ictal states of fatigue/non-verbal states. I was able to call and speak with her Daughter, Sara Reddy to obtain more information. Her daughter explains that the patient lives with her Son, (Daughter's Brother), but the daughter organizes and sets out all of her medications. The daughter watches her during the day when the son is at work. The patient's daughter arrived to the house this am and noticed that the patient did not take her HS doses of Dilantin or Keppra last night. She subsequently found her mother standing in the bathroom. The patient's daughter does not believe that her mother fell and states that she was already in her post-ictal state and would not take her oral medications, which is why EMS was called. Her daughter confirms that the patient has expressed her wishes to be a DNR/DNI when they spoke in the past. Please refer to Dr. Pickens's attestation for any changes to the treatment plan Allergies Allergy/AdvReac Type Severity Reaction Status Date / Time levofloxacin [From Levaquin] Allergy Severe Possible Verified 01/24/23 15:09 seizure peanut Allergy Intermediate SNEEZE, Verified 01/24/23 15:09 COUGH allopurinol [From Zyloprim] Allergy Unknown Unknown Verified 01/24/23 15:09 lorazepam Allergy Unknown Unknown Verified 01/24/23 15:09 nortriptyline Allergy Unknown Unknown Verified 01/24/23 15:09 Opioids - Morphine Analogues Allergy Unknown Unknown Verified 01/24/23 15:09 Penicillins Allergy Unknown Unknown Verified 01/24/23 15:09 Sulfa (Sulfonamide Allergy Unknown Unknown Verified 01/24/23 15:09 Antibiotics) risedronate sodium AdvReac Intermediate Intolerence Verified 01/24/23 15:09 [From Actonel] Home Medications Medication Instructions Recorded Confirmed Type acetaminophen 325 mg tablet 650 mg PO Q4H PRN pain #30 tabs 11/16/21 01/24/23 Rx cyanocobalamin (vitamin B-12) 1,000 mcg PO DAILY #30 caps 11/16/21 01/24/23 Rx 1,000 mcg capsule metformin 500 mg tablet 500 mg PO BID #180 tabs 03/01/22 01/24/23 Rx atorvastatin 20 mg tablet 20 mg PO DAILY #90 tabs 05/22/22 01/24/23 Rx levothyroxine 25 mcg tablet 25 mcg PO DAILY #90 tabs 09/06/22 01/24/23 Rx diclofenac sodium 1 % topical gel 2 g topical QID PRN Pain 10/16/22 01/24/23 History (Voltaren Arthritis Pain) sodium chloride 1,000 mg soluble 1,000 mg PO BID 10/16/22 01/24/23 History tablet magnesium oxide 400 mg (241.3 mg 400 mg PO BID #30 tabs 10/31/22 01/24/23 Rx magnesium) tablet Dilantin 30 mg capsule (phenytoin 30 mg PO QPM #90 caps 12/02/22 01/24/23 Rx sodium extended) levetiracetam 1,000 mg tablet 1,000 mg PO BID #180 tabs 12/02/22 01/24/23 Rx Dilantin Extended 100 mg capsule 100 mg PO BID 90 days #180 caps 12/20/22 01/24/23 Rx (phenytoin sodium extended) Past Med/Surg History Medical History Acid reflux B12 deficiency Carpal tunnel syndrome, right Dyslipidemia Gallstone pancreatitis H/O: CVA (cerebrovascular accident) Hiatal hernia History of stroke 20 YRS AGO Hypothyroidism Idiopathic polyneuropathy Osteoarthritis Osteoporosis Seizure disorder epilepsy, primary generalized seizure disorder--follows with Dr. 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- taking seizure meds- last seizure beginning of 2019 secondary to low phenytoin level in context of tx of infection- has had no interval seizures- clinically stable- follow up six months Type 2 diabetes mellitus Surgical History H/O: hysterectomy (~1965) History of ankle surgery x2--left d/t fracture History of appendectomy (~1965) History of colonoscopy History of ERCP (07/29/20) History of open reduction and internal fixation (ORIF) procedure left wrist--hardware removed History of right cataract extraction History of surgery on left wrist History of tooth extraction all top removed/most of bottom S/P cholecystectomy (07/29/20) S/P endoscopic carpal tunnel release 06/14/2021 Right wrist Family History Father Hypertension Mother Diabetes Myocardial infarction Brother Diabetes Lung disease Brother Diabetes Brother Diabetes Brother Diabetes Brother Diabetes Other No family history of adverse response to anesthesia Denies family history of Ovarian cancer Prostate cancer Breast cancer Colorectal cancer Social History Smoking Status: Never smoker Second Hand Exposure: No; Do You Dip or Chew Tobacco: No; Hx Alcohol Use: No Hx Substance Use: No Preferred Language: Kuwaiti Communication Ability: Impaired Communication Ability Comment: pt in post-ictal stage Visual Impairment: No Limitations Hearing Ability: Hard of Hearing Bean Dumper Required: No Beliefs That Will Affect Care: None marital status: / Current Living Situation: Family Current Living Situation Comment: Lives with Son current occupational status: retired 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 How many Children do You have: 2 Feels Safe at Home: Yes Childhood Exposure to Second-Hand Smoke: Yes Diet: regular Diet Comment: Patient watches serving sizes and counts carefully Dental Care, Regularly: No Physical Activity Frequency: Daily Seatbelt Use: always Sunscreen Use: Yes (when she goes outside ) Gender Identity: Female Assistive Devices: Denture - Upper, Denture - Lower, Glasses and Wheelchair Physical Exam Physical Exam: Physical Exam: General: In no acute distress, stated age, non-toxic appearing HEENT: Normocephalic, atraumatic, no scleral icterus, pupils around round, symmetrical, and reactive to light, moist mucus membranes, trachea midline, no thyromegaly Chest/Pulm: No respiratory distress, symmetrical chest expansion, clear breath sounds throughout Cardiac: RRR, no murmurs noted Abdomen: Negative for ascites and bruising, normoactive bowel sounds, soft, non-tender to palpation throughout Musculoskeletal: Symmetrical and without signs of acute trauma, able to move extremities voluntarily but will not follow commands for strength testing Extremities: Radial, dorsalis pedis, and posterior tibial pulses are intact and symmetrical, no edema noted in the BL LE's Skin: Warm, dry, no rashes , lesions, or scars noted Neuro: Alert, no current seizure activity, no focal neuro defects, will not respond to questioning or follow commands (consistent with her prolonged post- ictal stages in the past) Psych: No acute distress Results & Data Results & Data Vital Signs (Past 12 Hours) Vital Signs Temp Pulse Resp BP Pulse Ox O2 Del Method O2 Flow Rate 01/24/23 13:50 92 H 20 100 01/24/23 13:40 101 H 23 100 01/24/23 13:32 184/88 H 01/24/23 13:32 95 H 19 100 01/24/23 13:30 103 H 22 100 01/24/23 13:20 95 H 20 100 01/24/23 13:16 161/76 H 01/24/23 13:16 104 H 25 H 98 01/24/23 13:10 105 H 19 01/24/23 13:02 107 H 17 97 01/24/23 13:00 97 H 18 95 01/24/23 12:50 88 17 95 01/24/23 12:40 88 17 95 01/24/23 12:30 89 19 96 01/24/23 12:30 109/87 01/24/23 12:20 98 H 18 96 01/24/23 12:11 96 H 18 99 01/24/23 12:11 148/89 H 01/24/23 12:10 99 H 23 100 01/24/23 12:00 93 H 17 98 01/24/23 11:50 91 H 17 95 01/24/23 11:40 96 H 17 93 01/24/23 11:30 101 H 18 100 01/24/23 11:25 100 01/24/23 11:10 106 H 20 100 01/24/23 11:00 107 H 21 99 01/24/23 10:57 108 H 26 H 98 01/24/23 11:00 91 Room Air 0 01/24/23 11:56 92 H 01/24/23 10:36 36.6 C 113 H 26 H 161/78 H 98 Nasal Cannula Laboratory Results Abnormal lab results 01/24/23 01/24/23 01/24/23 Range/Units 11:01 11:01 12:05 WBC 11.45 H (4.8-10.8) K/ul RBC 3.74 L (4.20-5.40) M/uL MCV 101.9 H (80.0-100.0) fL RDW Std Deviation 51.8 H (36.4-46.3) fL Neut # (Auto) 7.95 H (1.40-6.50) K/uL [place] # (Auto) 0.91 H (0.11-0.59) K/uL Anion Gap 14 H (3-11) Glucose 152 H (70-99(Fasting)) mg/dl Lactate 3.2 H* (0.4-2.0) mmol/L Phenytoin (10-20) mcg/ml 01/24/23 Range/Units 14:04 WBC (4.8-10.8) K/ul RBC (4.20-5.40) M/uL MCV (80.0-100.0) fL RDW Std Deviation (36.4-46.3) fL Neut # (Auto) (1.40-6.50) K/uL [place] # (Auto) (0.11-0.59) K/uL Anion Gap (3-11) Glucose (70-99(Fasting)) mg/dl Lactate (0.4-2.0) mmol/L Phenytoin 3.1 L (10-20) mcg/ml ECG Additional Comments: Sinus tachycardia Nonspecific ST and T wave abnormality Abnormal ECG When compared with ECG of 25-OCT-2022 16:06, Vent. rate has increased BY 44 BPM Non- specific change in ST segment in Inferior leads Nonspecific T wave abnormality has replaced inverted T waves in Inferior leads Nonspecific T wave abnormality no longer evident in Anterior leads QT has lengthened Confirmed by Luis Carranza ([id number]) on 01/24/2023 1:24:42 PM Code Status & VTE Plan Code Status DNR/DNI VTE Prophylaxis Plan VTE Prophylaxis will be ordered: Yes Supervising Physician Co-Signing Physician Notes I personally saw and examined the patient. I verified all villarreal points and agree with Rachid Hobson PA-C with the following exceptions and/or additions: 87 year old female presents to the ER following concerns for seizure after missing her anti-seizure medications last night. Unable to get any history from patient as non-verbal at this time O/E HS RRR, Chest CTAB, Abdo soft, staring to the right side, not following commands, PERRL, no facial droop, moving all limbs A/P Seizures - appreciate neurology input with phenytoin load. Also loaded with Keppra. Previously she has taken a long time in post ictal state to get back to her baseline. Switching back to her usual regimen tomorrow. PG Care Time/CCT Total # of Minutes Spent Total Time Spent with Patient: Total time spent is greater than 50% in coordination of care (as documented) at patient's floor/unit and/or counseling patient: C[place] [address] INT INP/OBS CARE 3/75MIN Patient Type Established Medical Decision Making High Complexity Diagnoses Seizure R56.9 Hypothyroidism E03.9 Hypothyroidism type: acquired Type 2 diabetes mellitus E11.9 History of stroke Z86.73 Hyponatremia E87.1 (2) Hypothyroidism Hypothyroidism type: acquired Qualified Code(s): E03.9 - Hypothyroidism, unspecified
[2023-01-24] MEDS ORDERED: SODIUM CHLORIDE IV STA (16:07)
[2023-01-24] MEDS ORDERED: FOSPHENYTOIN IV STA (16:07)
[2023-01-24] MEDS ORDERED: LACTATED RINGER'S 1,000 ML IV SCH (16:15)
[2023-01-24] MEDS ORDERED: DEXTROSE 50% 50 ML SYRINGE IV PRN (16:23)
[2023-01-24] MEDS ORDERED: CARBOHYDRATES FOR HYPOGLYCEMIA PO PRN (16:23)
[2023-01-24] MEDS ORDERED: GLUCAGON FOR INJ 1 MG VIAL SQ PRN (16:23)
[2023-01-24] MEDS ORDERED: GLUCOSE 10 TAB/TUBE PO PRN (16:23)
[2023-01-24] MEDS ORDERED: GLUCOSE 40% GEL 15 GM TUBE PO PRN (16:23)
--- NOTE | 2023-01-24 16:24 | Communication Note ---
Date of Service: January 24, 2023 Neurology Communication Note: I was contacted regarding Agata Swift who is an 87 yo F with a known history of epilepsy presenting with a breakthrough seizure secondary to missed medication. Phenytoin level 3.1. Also on Keppra for which she received a bolus of 2g IV in the ED. I recommended that she be loaded with fosphenytoin 15mg/kg PE by IV to bring her level up from the missed dose. Do not recommend a change in her baseline seizure therapy as this breakthrough and subsequent low level was secondary to missed administration. -- Fosphenytoin 15mg/kg PE -- Keppra 2g IV already given -- Resume home seizure regimen and counselor at law compliance -- Check phenytoin level in 2 weeks as an outpatient, adjust level at that time accordingly. -- Please consult us with any further questions.
[2023-01-24] MEDS: INSULIN ASPART PER UNIT CHARGE SC SCH ×2 (17:23→19:52)
[2023-01-24] MEDS ORDERED: LORazepam 2 MG/1 ML VIAL IV PRN (19:39)
[2023-01-24] MEDS: SODIUM CHLORIDE 1 GM TABLET PO SCH (21:28)
[2023-01-24] MEDS: MAGNESIUM OXIDE 400 MG TAB PO SCH (21:29)
[2023-01-24] MEDS: ENOXAPARIN INJ 40 MG/0.4 ML SYR SQ SCH (21:35)
[2023-01-24] MEDS: levETIRAcetam 1,000 MG in 0.9 % SODIUM CHLORIDE 100 ML IV SCH (21:35)
[2023-01-24] MEDS: LANTUS PER UNIT CHARGE SQ SCH (21:35)
[2023-01-25] MEDS: INSULIN ASPART PER UNIT CHARGE SC SCH ×6 (00:46→20:18)
--- NOTE | 2023-01-25 06:48 | Discharge Summary ---
Date of Service January 25, 2023 Admission HPI Per Admitting Provider Agata is an 86 year old woman with a past medical history of epilepsy (on Keppra, Dilantin), DM2, CVA (~20 years ago), dyslipidemia, hypothyroidism, GERD who presented to the [facility] ED on 01/24/23 with recent seizures today due to missed antiepileptic medications last night. The patient reportedly was seizing while being wheeled to her ED room on arrival. In the ED the patient was noted to be hypertensive at 184/88, tachycardic with HR in the low 100's, but otherwise stable. Labs were significant for a leukocytosis of 11, MCV of 101, AG of 14 with bicarb of 21, glucose of 152, initial lactate of 3.2, negative UA and covid [address] of the head/brain wo con was read as "No acute intracranial hemorrhage, no evidence of acute territorial infarction or other acute intracranial disease process.". Chest xray was read as "No acute chest disease.". Prior to admission the patient was given 1L NSS and 2gm IV Keppra. At the time of the exam the patient was lying in bed and awake, no current seizure activity. History was unable to be obtained from the patient at this time as she is known to have prolonged post-ictal states of fatigue/non-verbal states. I was able to call and speak with her Daughter, Sara Reddy to obtain more information. Her daughter explains that the patient lives with her Son, (Daughter's Brother), but the daughter organizes and sets out all of her medications. The daughter watches her during the day when the son is at work. The patient's daughter arrived to the house this am and noticed that the patient did not take her HS doses of Dilantin or Keppra last night. She subsequently found her mother standing in the bathroom. The patient's daughter does not believe that her mother fell and states that she was already in her post-ictal state and would not take her oral medications, which is why EMS was called. Her daughter confirms that the patient has expressed her wishes to be a DNR/DNI when they spoke in the past. Please refer to Dr. Pickens's attestation for any changes to the treatment plan Principal Diagnosis seizure disorder Discharge Exam GENERAL: A&Ox3. NAD. HEENT: PERRL, EOMI. Moist mucous membranes. CHEST/LUNGS: CTAB A/P. No crackles, wheezes, rales, rhonchi. HEART: RRR. No m/g/r. No carotid bruits. SKIN: Warm and dry. No rashes or lesions. PSYCHIATRIC: Euthymic affect, no SI, no pressured speech, no hallucinations NEUROLOGIC: No FND, CNII-XII grossly intact Discharge Data Allergies Allergy/AdvReac Type Severity Reaction Status Date / Time levofloxacin [From Levaquin] Allergy Severe Possible Verified 01/24/23 15:09 seizure peanut Allergy Intermediate SNEEZE, Verified 01/24/23 15:09 COUGH allopurinol [From Zyloprim] Allergy Unknown Unknown Verified 01/24/23 15:09 lorazepam Allergy Unknown Unknown Verified 01/24/23 15:09 nortriptyline Allergy Unknown Unknown Verified 01/24/23 15:09 Opioids - Morphine Analogues Allergy Unknown Unknown Verified 01/24/23 15:09 Penicillins Allergy Unknown Unknown Verified 01/24/23 15:09 Sulfa (Sulfonamide Allergy Unknown Unknown Verified 01/24/23 15:09 Antibiotics) risedronate sodium AdvReac Intermediate Intolerence Verified 01/24/23 15:09 [From Actonel] Consultations 01/24/23 13:51 ED Decision to Admit Stat Ordered Studies 01/24/23 10:53 CT head/brain wo con Stat Hospital Course (1) Seizure: (2) Seizure disorder: (3) Hypothyroidism: (4) Hyponatremia: (5) Type 2 diabetes mellitus: Plan Seizure: -Currently stable and without active seizure activity -Missed her doses of Dilantin and Phenytoin night prior to admission per her daughter, was noted to have seizure-activity on arrival to the ED -CT of the head is negative -S/P 2gm IV keppra and 1L NSS in the ED -Phenytoin level low at 3.1 on admission -Discussed the patient with Dr. Mcguire, it communications manager Neurologist today, appreciate his help and quick response -Recommended giving her a loading dose of 15 mg/kg IV fosphenytoin with her current low levels >Spoke to Pharmacy, will give 900 mg IV Fosphenytoin -Given 1000 mg IV Keppra BID until stable for PO intake -Neuro recs: --- Fosphenytoin 15mg/kg PE -- Resume home seizure regimen and developmental training counselor compliance -- Check phenytoin level in 2 weeks as an outpatient, adjust level at that time accordingly. Hypothyroidism: -Continue levothyroxine Type 2 diabetes mellitus: -Continue home metformin on DC History of stroke: -Continue statin Hyponatremia: -Chronic, stable -Continue BID PO Sodium chloride upon DC Total Time Total Time Spent Total Time Spent (In Minutes): see attending attestation Discharge Plan Discharge Items Reason For Visit: SEIZURES Follow-up/Referrals: Francesca Tillman MD [Primary Care Provider] - Medications and DC Order Prescriptions: No Action metformin 500 mg tablet 500 mg PO BID Qty: 180 3RF atorvastatin 20 mg tablet 20 mg PO DAILY Qty: 90 3RF levothyroxine 25 mcg tablet 25 mcg PO DAILY Qty: 90 3RF phenytoin sodium extended [Dilantin Extended] 100 mg capsule 100 mg PO BID 90 Days Qty: 180 3RF Rx Instructions: total of 100mg in am and 130mg in pm BRAND NECESSARY Dilantin 30 mg capsule 30 mg PO QPM Qty: 90 3RF levetiracetam 1,000 mg tablet 1,000 mg PO BID Qty: 180 3RF acetaminophen 325 mg Tablet 650 mg PO Q4H PRN (Reason: pain) Qty: 30 0RF cyanocobalamin (vitamin B-12) 1,000 mcg capsule 1,000 mcg PO DAILY Qty: 30 0RF sodium chloride 1,000 mg Tablet,Soluble 1,000 mg PO BID diclofenac sodium [Voltaren Arthritis Pain] 1 % gel 2 g topical QID PRN (Reason: Pain) magnesium oxide 400 mg (241.3 mg magnesium) Tablet 400 mg PO BID Qty: 30 0RF Admission Data Admit Date/Time: 01/24/23 15:39 Attending Provider: David Hill Admit Provider: Jonathan Pickens Primary Care Provider: Francesca Tillman Other Providers: Jonathan Pickens
[2023-01-25 06:54] LABS: Albumin Globulin Ratio 1.5 (0.9-2); Albumin Level 3.7 gm/dl (3.4-5.0); BUN Creatinine Ratio 12.2 (10-20); Bilirubin,Total 0.4 mg/dl (0.2-1.0); Calcium 8.6 mg/dl (8.6-10.3); Creatinine Clr Calc Pharmacy 75.6 ml/min; Est GFR (Non-African American) 88.8 ml/min; Globulin 2.5 gm/dl (2.5-4.0); Potassium 3.8 mmol/L (3.5-5.1); Total Protein 6.2 gm/dl (6.0-8.3)
[2023-01-25 06:57] LABS: Basophils # (auto) 0.03 K/uL (0-0.2); Basophils % (auto) 0.4 %; Eosinophils # (auto) 0.04 K/uL (0-0.50); Eosinophils % (auto) 0.5 %; Hematocrit (blood only) 32.4 % (37.0-47.0); Immature Granulocytes # (auto) 0.02 K/uL (0.01-0.20); Immature Granulocytes % (auto) 0.2 %; Lymphocytes # (auto) 1.96 K/uL (1.2-3.4); Lymphocytes % (auto) 24.3 %; Mean Corpuscular Hemoglobin 32.5 pg (25.0-34.0); Mean Corpuscular Volume 95.9 fL (80.0-100.0); Mean Platelet Volume 9.6 fL (9.4-12.4); Monocytes # (auto) 0.79 K/uL (0.11-0.59); Monocytes % (auto) 9.8 %; Neutrophils # (auto) 5.24 K/uL (1.40-6.50); Neutrophils % (auto) 64.8 %; Platelet Count 254 K/uL (130-400); RDW Coefficient of Variation 13.7 % (11.5-14.5); RDW Standard Deviation 48.9 fL (36.4-46.3); Red Blood Count 3.38 M/uL (4.20-5.40); White Blood Count 8.08 K/ul (4.8-10.8)
[2023-01-25] MEDS: levETIRAcetam 1,000 MG in 0.9 % SODIUM CHLORIDE 100 ML IV SCH (09:19)
[2023-01-25] MEDS: LANTUS PER UNIT CHARGE SQ SCH ×2 (09:43→20:36)
[2023-01-25] MEDS: MAGNESIUM OXIDE 400 MG TAB PO SCH ×2 (10:05→20:37)
[2023-01-25] MEDS: SODIUM CHLORIDE 1 GM TABLET PO SCH ×2 (10:05→20:37)
[2023-01-25] MEDS: PHENYTOIN SODIUM ER 100 MG CAP PO SCH ×2 (10:05→20:37)
[2023-01-25] MEDS: LEVOTHYROXINE SODIUM 25 MCG TABLET PO SCH (10:05)
[2023-01-25] MEDS: ATORVASTATIN 20 MG TAB PO SCH (10:05)
[2023-01-25] MEDS: ACETAMINOPHEN 500 MG TAB PO PRN (12:37)
--- NOTE | 2023-01-25 14:38 | Hospitalist Progress Note ---
Date of Service January 25, 2023 Assessment & Plan (1) Seizure: Plan: 87-year-old female with history of seizure disorder who presented due to seizures after missing her medications. Seizure: -Currently stable and without active seizure activity -Missed her doses of Dilantin and Phenytoin night before admission, was noted to have seizure-activity on arrival to the ED -CT of the head is negative, Chest XR negative -S/P 2gm IV Keppra and 1L NSS in the ED -Phenytoin level was low at 3.1 -Neuro recs -- Recommended giving her a loading dose of 15 mg/kg IV fosphenytoin with her current low levels -- Resume home seizure regimen and adoption counselor compliance -- Check phenytoin level in 2 weeks as an outpatient, adjust level at that time accordingly. -Restarted oral Dilantin and Keppra -Discussed with family the need to discuss the patient's living situation and having someone supervising her meds -Encouraged daughter who usually gives meds to look into becoming POA as we suspect she has baseline dementia, which is directly resulting in missed doses/seizures/hospitalizations Hypothyroidism: -Continue levothyroxine Type 2 diabetes mellitus: -Hold metformin -5 units lantus BID, CF 50 q4h for now -Adjust regimen as needed History of stroke: -Continue statin Hyponatremia: -Chronic, stable -Continue BID PO Sodium chloride DVT ppx: Lovenox 40 mg daily Diet: DM 2, easy to chew Dispo: PCU, PT/OT evals prior to DC planning CODE: DNR/DNI (2) Seizure disorder: (3) Hypothyroidism: (4) Hyponatremia: (5) Type 2 diabetes mellitus: Plan Attending attestation Pt seen and examined in concert with Dr. Proctor. In agreement with the documented findings as noted in the resident documentation with any exceptions or additions as noted here. Remaining nonverbal and approaching baseline per daughter at bedside who is primary caregiver. Per daughter, patient has repeatedly avoided and manipulated her medications despite warnings and expressed understanding. She is also very limited in ADL - benefits from significant assist with bathing, dressing. Daughter is helping pay the bills and similar (though patient signs the checks she does not fill them out). Daughter is significantly concerned re: amount of care available for mother and being unable to provide the level of care required in her current setting (at her own home with her son). Patient's daughter wants her to move in with daughter's house, patient refuses. Will revisit conversation when patient is more verbal for better contribution but strong concern of underlying dementia. On examination, S1/S2 nl RRR no MCG. CTAB. Abd NT/ND BS+ve. Speech is delayed and very limited, unable to assess understanding adequately, gross CN examination without aberrent findings. Seizure disorder - neuro consult - resume home medication regimen, monitor levels as noted. Behavioral changes with concern for underlying dementia - requires re-assessment but based on conversation strong concerns for safety at home and need for support. PT/OT evaluation. Extensive conversation with daughter and siblings recommended, power of associate attorney reviewed as a tool to support further care as patient needs more help. Strongly encourage living situation change. Else see resident documentation as noted. Admission and Anticipated Discharge Date Admission Date: January 24, 2023 Review of Systems Review of Systems: Unobtainable due to cognitive status Physical Exam Physical Exam: General: In no acute distress, stated age, non-toxic appearing HEENT: Normocephalic, atraumatic, no scleral icterus, pupils around round, symmetrical, and reactive to light, moist mucus membranes, trachea midline, no thyromegaly Chest/Pulm: No respiratory distress, symmetrical chest expansion, clear breath sounds throughout Cardiac: RRR, no murmurs noted Musculoskeletal: Symmetrical and without signs of acute trauma, moves all 4 extremities Skin: Warm, dry, no rashes/lesions Neuro: Alert, no current seizure activity, no focal neuro defects, responds inappropriately to questioning, does not follow commands Results & Data Results & Data Vital Signs (Past 12 Hours) Vital Signs Temp Pulse Pulse Resp BP Pulse Ox O2 Del Method 01/25/23 12:17 36.6 C 89 17 147/91 H 96 Room Air 01/25/23 07:20 83 01/25/23 07:20 Room Air 01/25/23 07:22 37.1 C 92 H 16 156/97 H 94 Room Air 01/25/23 03:34 36.7 C 85 18 146/87 H 94 Room Air Resident Activity Tracking Resident Involvement: Resident Care Provided Care Provided: Adult Hospital Medicine (3) Hypothyroidism Hypothyroidism type: acquired Qualified Code(s): E03.9 - Hypothyroidism, unspecified
[2023-01-25] MEDS: ENOXAPARIN INJ 40 MG/0.4 ML SYR SQ SCH (20:36)
[2023-01-25] MEDS: levETIRAcetam 500 MG TAB PO SCH (20:36)
[2023-01-25] MEDS: PHENYTOIN SODIUM ER 30 MG CAP PO SCH (20:37)
[2023-01-25] MEDS ORDERED: LORazepam 2 MG/1 ML VIAL IV PRN (22:02)
[2023-01-26] MEDS: INSULIN ASPART PER UNIT CHARGE SC SCH ×4 (08:21→20:18)
[2023-01-26] MEDS: LEVOTHYROXINE SODIUM 25 MCG TABLET PO SCH (08:22)
[2023-01-26] MEDS: SODIUM CHLORIDE 1 GM TABLET PO SCH ×2 (08:22→20:23)
[2023-01-26] MEDS: PHENYTOIN SODIUM ER 100 MG CAP PO SCH ×2 (08:22→20:23)
[2023-01-26] MEDS: MAGNESIUM OXIDE 400 MG TAB PO SCH ×2 (08:22→20:22)
[2023-01-26] MEDS: levETIRAcetam 500 MG TAB PO SCH ×2 (08:23→20:23)
[2023-01-26] MEDS: ATORVASTATIN 20 MG TAB PO SCH (08:23)
--- NOTE | 2023-01-26 10:09 | Hospitalist Progress Note ---
Date of Service January 26, 2023 Assessment & Plan (1) Seizure: Plan: 87-year-old female with past medical history of epilepsy (on Keppra, Dilantin), DM2, CVA (~20 years ago), dyslipidemia, hypothyroidism, GERD who presented w/ seizures in setting of missed antiepileptic medications the previous night. Epilepsy -Reportedly w/ seizure like activity in the ED; no reoccurrence of seizure like activity while admitted. CT head neg. 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 Uses wheelchair at home. Prior fall in distant past and prior stroke. Difficulty with IADLs. Mild cognitive impairment? -Continue discussion w/ patient's daughter regarding optimal [facility] safety -Per PT/OT, not safe for home at this time given lower extremity weakness and inability to stand. Recommends SNF. -Though 24-hour care at home from family is available, patient and daughter agreeable to SNF placement. Daughter states she plans to discuss with family about long-term home safety and placement concerns. Type 2 diabetes mellitus -A1c 5.6 (01/2023) -Loose correction as needed while inpatient, not needing basal, hold home metformin. Hypothyroidism -Continue home levothyroxine. Low normal TSH per records; outpatient f/u. History of stroke -Continue home statin Hyponatremia, mild -Chronic, stable, continue home PO NaCl Diet: DM2 DVT ppx: SQ Lovenox Dispo: PCU. PT/OT recommend SNF CODE: DNR/DNI (2) Seizure disorder: (3) Hypothyroidism: (4) Hyponatremia: (5) Type 2 diabetes mellitus: Admission and Anticipated Discharge Date Admission Date: January 24, 2023 Supervising Physician Co-Signing Physician Notes Attending attestation Pt seen and examined in concert with Dr. Christensen. In agreement with the documented findings as noted in the resident documentation with any exceptions or additions as noted here. Resting in bed with complaint of stable chronic LE and lower back pain without new symptoms. Significantly more interactive and verbal today - oriented to self, place and mostly to time but with evident day + long gaps in her memory not only with yesterdays events but previous timeframes as well vs. poor historian On examination, S1/S2 nl RRR no MCG. CTAB. 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 PT/OT evaluation with results as noted, not safe for home Memory issues with concern for underlying dementia - see 01/25 note for discussion re: home situation and safety, would recommend placement as well but family would be able to provide 24 hour care if patient willing to move in with daughter (instead of home with daughter visiting) Else see resident documentation as noted. Subjective No complaints. Ate breakfast. Complaining of intermittent left leg pain and some tingling. States intermittently feels like she is riding a wave. She notes that she has intermittent weakness in that leg 2/2 stroke and distant fall. Symptoms came back more after the seizure that led to this admission. Review of Systems Review of Systems: All systems reviewed & are unremarkable except as noted in HPI & below Physical Exam Physical Exam: General: Grossly A&O. NAD. Cooperative. HEENT: Atraumatic, normocephalic. Pulm: CTAB. -wheezes, -rales, -rhonchi. No accessory muscle us. Cardiac: RRR, -mrg. No LE edema. Neuro: Sensation to light touch intact bilat shins. Wiggling toes of L foot. Unable to lift L lower extremity. Results & Data Results & Data Vital Signs (Past 12 Hours) Vital Signs Temp Pulse Pulse Resp BP BP Pulse Ox 01/26/23 08:02 36.4 C L 95 H 17 129/96 93 01/26/23 03:25 36.7 C 86 19 136/66 97 01/25/23 23:00 90 01/25/23 22:31 36.1 C L 90 20 132/88 93 O2 Del Method 01/26/23 08:02 Room Air 01/26/23 03:25 Room Air 01/25/23 23:00 01/25/23 22:31 Room Air Resident Activity Tracking Resident Involvement: Resident Care Provided Care Provided: Adult Hospital Medicine (3) Hypothyroidism Hypothyroidism type: acquired Qualified Code(s): E03.9 - Hypothyroidism, unspecified
[2023-01-26] MEDS: ACETAMINOPHEN 500 MG TAB PO PRN (12:59)
--- NOTE | 2023-01-26 18:54 | Communication Note ---
Date of Service: January 26, 2023 ~645PM Notified of temp of 100.4F (37.8C) Per nursing, no new infectious symptoms such as cough or diarrhea. Has 9/10 severity headache, reportedly same as when assessed by nursing at 1pm today prior to Tylenol. Does have wilkerson which could be infection risk. When I saw patient at 5pm to discuss SNF plans, patient did not appear uncomfortable. Ordering blood culture, UA, and cbc. next dose of scheduled Tylenol 1000 due at 9pm. DDx: considered infection, seizure-like activity (continue monitoring clinically). The left lower extremity pain/weakness is also considered. Signed out to night resident to assess patient.
[2023-01-26 19:31] LABS: Basophils # (auto) 0.02 K/uL (0-0.2); Basophils % (auto) 0.2 %; Eosinophils # (auto) 0.07 K/uL (0-0.50); Eosinophils % (auto) 0.7 %; Hemoglobin 10.1 g/dl (12.0-16.0); Immature Granulocytes # (auto) 0.05 K/uL (0.01-0.20); Immature Granulocytes % (auto) 0.5 %; Lymphocytes % (auto) 16.8 %; Mean Corpuscular Hemoglobin 32.7 pg (25.0-34.0); Mean Corpuscular Hgb Conc 33.7 g/dL (32.0-36.0); Mean Corpuscular Volume 97.1 fL (80.0-100.0); Mean Platelet Volume 9.2 fL (9.4-12.4); Monocytes # (auto) 1.19 K/uL (0.11-0.59); Monocytes % (auto) 11.8 %; Neutrophils # (auto) 7.07 K/uL (1.40-6.50); Platelet Count 207 K/uL (130-400); RDW Coefficient of Variation 13.8 % (11.5-14.5); RDW Standard Deviation 49.1 fL (36.4-46.3); Red Blood Count 3.09 M/uL (4.20-5.40)
[2023-01-26] MEDS: ENOXAPARIN INJ 40 MG/0.4 ML SYR SQ SCH (20:22)
[2023-01-26] MEDS: ACETAMINOPHEN 500 MG TAB PO SCH (20:22)
[2023-01-26] MEDS: PHENYTOIN SODIUM ER 30 MG CAP PO SCH (20:23)
[2023-01-26 23:49] LABS: Appearance Urine Cloudy (Clear); Bacteria Urine Automated 1+ (Negative); Bilirubin Urine Negative (Negative); Blood Urine Negative (Negative); Color Urine Yellow; Epithelial Cell Urine Auto >30 /lpf (0-5); Glucose Urine UA Negative (Negative); Ketones Urine 1+ (Negative); Leukocyte Esterase Urine 2+ (Negative); Nitrite Urine Negative (Negative); Protein Urine Negative (Negative); Specific Gravity Urine 1.015 (1.000-1.030); Urobilinogen Urine Negative (Negative); WBC Urine Automated >30 /hpf (0-5); pH Urine 5.5 (4.5-7.5)
[2023-01-27 00:05] LABS: RBC Urine Automated 0-4 /hpf (0-4)
[2023-01-27] MEDS: ACETAMINOPHEN 500 MG TAB PO SCH ×3 (05:30→20:08)
[2023-01-27 06:35] LABS: Basophils # (auto) 0.04 K/uL (0-0.2); Basophils % (auto) 0.5 %; Eosinophils # (auto) 0.13 K/uL (0-0.50); Eosinophils % (auto) 1.6 %; Hematocrit (blood only) 28.5 % (37.0-47.0); Hemoglobin 9.7 g/dl (12.0-16.0); Immature Granulocytes # (auto) 0.03 K/uL (0.01-0.20); Immature Granulocytes % (auto) 0.4 %; Lymphocytes # (auto) 1.96 K/uL (1.2-3.4); Lymphocytes % (auto) 24.1 %; Mean Corpuscular Hemoglobin 32.8 pg (25.0-34.0); Mean Corpuscular Volume 96.3 fL (80.0-100.0); Mean Platelet Volume 9.7 fL (9.4-12.4); Monocytes # (auto) 1.13 K/uL (0.11-0.59); Monocytes % (auto) 13.9 %; Neutrophils # (auto) 4.84 K/uL (1.40-6.50); Neutrophils % (auto) 59.5 %; Platelet Count 201 K/uL (130-400); RDW Coefficient of Variation 13.8 % (11.5-14.5); RDW Standard Deviation 48.7 fL (36.4-46.3); Red Blood Count 2.96 M/uL (4.20-5.40); White Blood Count 8.13 K/ul (4.8-10.8)
[2023-01-27 06:45] LABS: Albumin Globulin Ratio 1.3 (0.9-2); Albumin Level 3.3 gm/dl (3.4-5.0); BUN Creatinine Ratio 16.4 (10-20); Bilirubin,Total 0.3 mg/dl (0.2-1.0); Calcium 8.5 mg/dl (8.6-10.3); Creatinine Clr Calc Pharmacy 68.8 ml/min; Est GFR (African American) 99.1 ml/min; Est GFR (Non-African American) 85.5 ml/min; Globulin 2.6 gm/dl (2.5-4.0); Magnesium 1.8 mg/dl (1.7-2.4); Potassium 3.8 mmol/L (3.5-5.1); Total Protein 5.9 gm/dl (6.0-8.3)
--- NOTE | 2023-01-27 07:06 | Hospitalist Progress Note ---
Date of Service January 27, 2023 Assessment & Plan (1) Seizure: Plan: 87-year-old female with past medical history of epilepsy (on Keppra, Dilantin), DM2, CVA (~20 years ago), dyslipidemia, hypothyroidism, GERD who presented w/ seizures in setting of missed antiepileptic medications the previous night. Epilepsy -Reportedly w/ seizure like activity in the ED; no reoccurrence of seizure like activity while admitted. CT head neg. 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 Uses wheelchair at home. Prior fall in distant past and prior stroke. -Due to ongoing discomfort and elevated temp yesterday, ordered venous duplex -Left venous duplex negative for DVT Difficulty with IADLs. Mild cognitive impairment? -Continue discussion w/ patient's daughter regarding optimal intermediate safety -Per PT/OT, not safe for home at this time given lower extremity weakness and inability to stand. Recommends SNF. -Though 24-hour care at home from family is available, patient and daughter agreeable to SNF placement. Daughter states she plans to discuss with family about long-term home safety and placement concerns. -[facility] Type 2 diabetes mellitus -A1c 5.6 (01/2023) -Loose correction as needed while inpatient, not needing basal, hold home metformin. Hypothyroidism -Continue home levothyroxine. Low normal TSH per records; outpatient f/u. History of stroke -Continue home statin Hyponatremia, mild -Chronic, stable, continue home PO NaCl Diet: DM2 DVT ppx: SQ Lovenox Dispo: PCU. PT/OT recommend SNF CODE: DNR/DNI (2) Seizure disorder: (3) Hypothyroidism: (4) Hyponatremia: (5) Type 2 diabetes mellitus: Admission and Anticipated Discharge Date Admission Date: January 24, 2023 Supervising Physician Co-Signing Physician Notes Attending attestation I personally examined the patient and verified all villarreal points of history and exam, discussed case, and agree with decision making with Dr Pickett only complaint is headache today. no seizures. nursing notes no new problems. 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 PT/OT evaluation with results as noted, not safe for home - pending SNF Memory issues with concern for underlying dementia - see 01/25 note for discussion re: home situation and safety, would recommend placement as well but family would be able to provide 24 hour care if patient willing to move in with daughter (instead of home with daughter visiting) Cspine somatic dysfunction / tension headache - OMT as above otherwise as above. Subjective 01/27: Patient seen and examined at bedside. No acute events overnight. She had a 10/10 headache last night with some chills and an elevated temp to 37.8C, although has been afebrile since. This morning she states that her headache is a bit better this morning (8/10) after getting Tylenol. She has been eating and drinking without issue, no difficulty with bowel/bladder function. She notes that her left leg hurts at times, states she has a history of "joint" issues in her knee. Review of Systems Review of Systems: As per above Physical Exam Constitutional: WD/WN, vitals as above Eyes: Anicteric sclerae ENMT: External ears and nose normal. Moist mucous membranes Respiratory: normal respiratory effort, lungs clear to auscultation Cardiovascular: Rate/Rhythm: regular rate and regular rhythm Mild lower extremity edema bilaterally Gastrointestinal (Abdomen): Abdomen soft, nontender. No masses palpated Musculoskeletal: Moves limbs independently Skin: no rashes, warm and dry Results & Data Results & Data Vital Signs (Past 12 Hours) Vital Signs Temp Pulse Pulse Resp BP Pulse Ox O2 Del Method 01/26/23 23:00 99 H 01/27/23 02:58 37 C 84 18 129/72 94 Room Air 01/26/23 23:09 37.4 C 94 H 18 120/70 92 Room Air 01/26/23 20:00 Room Air Resident Activity Tracking Resident Involvement: Resident Care Provided Care Provided: Adult Hospital Medicine (3) Hypothyroidism Hypothyroidism type: acquired Qualified Code(s): E03.9 - Hypothyroidism, unspecified
[2023-01-27] MEDS: MAGNESIUM OXIDE 400 MG TAB PO SCH ×2 (07:41→20:10)
[2023-01-27] MEDS: PHENYTOIN SODIUM ER 100 MG CAP PO SCH ×2 (07:42→20:10)
[2023-01-27] MEDS: levETIRAcetam 500 MG TAB PO SCH ×2 (07:42→20:10)
[2023-01-27] MEDS: SODIUM CHLORIDE 1 GM TABLET PO SCH ×2 (07:42→20:10)
[2023-01-27] MEDS: LEVOTHYROXINE SODIUM 25 MCG TABLET PO SCH (07:42)
[2023-01-27] MEDS: ATORVASTATIN 20 MG TAB PO SCH (07:42)
[2023-01-27] MEDS: INSULIN ASPART PER UNIT CHARGE SC SCH ×4 (07:45→20:04)
--- NOTE | 2023-01-27 11:18 | XRay Report ---
TWO VIEW CHEST CLINICAL HISTORY: Fever. FINDINGS: AP and lateral chest radiographs are compared to study dated 01/24/2023 and correlated with chest CT dated 11/30/2019. The heart is enlarged noting atherosclerotic calcification of the thoracic aorta. The pulmonary vasculature is noncongested. Chronic interstitial thickening is similar to previ ous. There is bibasilar scarring/atelectasis. No airspace consolidation or pleural effusion is identi fied. There is no pneumothorax. The skeletal structures are osteopenic. There are compression deformi ties in the thoracic spine. Degenerative change and hyperkyphosis is noted in the spine. Advanced art hritic change is seen in the shoulders. Cholecystectomy clips are noted in the upper abdomen. IMPRESSION: Cardiomegaly and chronic parenchymal changes as above with no acute cardiopulmonary abnor mality identified. ACT 112: Negative or not required by law. Electronically signed by: Connor Wright M.D. 01/27/2023 11:17 AM
--- NOTE | 2023-01-27 11:44 | Ultrasound Report ---
LEFT LOWER EXTREMITY VENOUS DOPPLER CLINICAL HISTORY: Left leg pain. COMPARISON STUDY: No previous studies for comparison. TECHNIQUE: Sonography of the deep venous system of the left lower extremity was performed. Compressi on and augmentation were evaluated. FINDINGS: The left common femoral, superficial femoral and popliteal veins were compressible. Augmen tation was normal. Flow was shown within the deep calf vessels. IMPRESSION: No evidence of deep venous thrombus within the left lower extremity. ACT 112: Negative or not required by law. Electronically signed by: Migel Tillman M.D. 01/27/2023 11:42 AM
--- NOTE | 2023-01-27 18:26 | Billing Data ---
Date of Service January 27, 2023 Coding Level of Care Code 60370 SUB INP/OBS CARE MIN
--- NOTE | 2023-01-27 18:27 | Hospitalist Progress Note ---
Date of Service January 27, 2023 Assessment & Plan Admission and Anticipated Discharge Date Admission Date: January 24, 2023 Results & Data Results & Data Vital Signs (Past 12 Hours) Vital Signs Temp Pulse Pulse Resp BP Pulse Ox O2 Del Method 01/27/23 16:01 98.8 F 83 24 136/79 93 Room Air 01/27/23 14:43 82 01/27/23 11:53 97.9 F 95 H 19 141/75 H 95 Room Air 01/27/23 07:59 98.6 F 85 21 127/71 95 Room Air PG Care Time/CCT Total # of Minutes Spent Total Time Spent with Patient: Total time spent is greater than 50% in coordination of care (as documented) at patient's floor/unit and/or counseling patient: Coding Level of Care Code None Diagnoses CPT Codes Musculoskeletal - Musculoskeletal: 15441 Osteo Kv[address] Tr 1-2 Body regions ([id number])
[2023-01-27] MEDS: ENOXAPARIN INJ 40 MG/0.4 ML SYR SQ SCH (20:08)
[2023-01-27] MEDS: PHENYTOIN SODIUM ER 30 MG CAP PO SCH (20:09)
[2023-01-28] MEDS: ACETAMINOPHEN 500 MG TAB PO SCH ×3 (05:11→19:55)
[2023-01-28 06:16] LABS: Basophils # (auto) 0.04 K/uL (0-0.2); Basophils % (auto) 0.5 %; Eosinophils # (auto) 0.13 K/uL (0-0.50); Eosinophils % (auto) 1.5 %; Hematocrit (blood only) 28.4 % (37.0-47.0); Hemoglobin 9.8 g/dl (12.0-16.0); Immature Granulocytes # (auto) 0.02 K/uL (0.01-0.20); Immature Granulocytes % (auto) 0.2 %; Lymphocytes # (auto) 1.86 K/uL (1.2-3.4); Lymphocytes % (auto) 21.8 %; Mean Corpuscular Hemoglobin 32.5 pg (25.0-34.0); Mean Corpuscular Hgb Conc 34.5 g/dL (32.0-36.0); Mean Platelet Volume 9.8 fL (9.4-12.4); Monocytes # (auto) 0.97 K/uL (0.11-0.59); Monocytes % (auto) 11.4 %; Neutrophils # (auto) 5.52 K/uL (1.40-6.50); Neutrophils % (auto) 64.6 %; Platelet Count 210 K/uL (130-400); RDW Coefficient of Variation 13.7 % (11.5-14.5); RDW Standard Deviation 47.2 fL (36.4-46.3); Red Blood Count 3.02 M/uL (4.20-5.40); White Blood Count 8.54 K/ul (4.8-10.8)
[2023-01-28 06:36] LABS: BUN Creatinine Ratio 14.3 (10-20); Calcium 8.8 mg/dl (8.6-10.3); Creatinine Clr Calc Pharmacy 77.1 ml/min; Est GFR (Non-African American) 88.8 ml/min; Potassium 4.1 mmol/L (3.5-5.1)
--- NOTE | 2023-01-28 07:48 | Hospitalist Progress Note ---
Date of Service January 28, 2023 Assessment & Plan (1) Seizure: Plan: 87-year-old female with past medical history of epilepsy (on Keppra, Dilantin), DM2, CVA (~20 years ago), dyslipidemia, hypothyroidism, GERD who presented w/ seizures in setting of missed antiepileptic medications the previous night. Epilepsy -Reportedly w/ seizure like activity in the ED; no reoccurrence of seizure like activity while admitted. CT head neg. 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 Uses wheelchair at home. Prior fall in distant past and prior stroke. -Due to ongoing discomfort and elevated temp Friday night, ordered venous duplex -Left venous duplex negative for DVT Difficulty with IADLs. Mild cognitive impairment? -Continue discussion w/ patient's daughter regarding optimal halfway safety -Per PT/OT, not safe for home at this time given lower extremity weakness and inability to stand. Recommends SNF. -Though 24-hour care at home from family is available, patient and daughter agreeable to SNF placement. Daughter states she plans to discuss with family about long-term home safety and placement concerns. -Anticipate discharge to [facility] Type 2 diabetes mellitus -A1c 5.6 (01/2023) -Loose correction as needed while inpatient, not needing basal, hold home metformin. Hypothyroidism -Continue home levothyroxine. Low normal TSH per records; outpatient f/u. History of stroke -Continue home statin Hyponatremia, mild -Chronic, stable, continue home PO NaCl Diet: DM2 DVT ppx: SQ Lovenox Dispo: PCU. PT/OT recommend SNF CODE: DNR/DNI (2) Seizure disorder: (3) Hypothyroidism: (4) Hyponatremia: (5) Type 2 diabetes mellitus: Admission and Anticipated Discharge Date Admission Date: January 24, 2023 Supervising Physician Co-Signing Physician Notes Attending attestation I personally examined the patient and verified all villarreal points of history and exam, discussed case, and agree with decision making with Dr Pickett Still with some headache and neck pain. 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 PT/OT evaluation with results as noted, not safe for home - pending SNFhopefully tomorrow Memory issues with concern for underlying dementia - see 01/25 note for discussion re: home situation and safety, would recommend placement as well but family would be able to provide 24 hour care if patient willing to move in with daughter (instead of home with daughter visiting) Cspine somatic dysfunction / tension headache - OMT as above done again today, add Voltaren gel otherwise as above. Subjective 01/28: Patient seen and examined at bedside. No acute events overnight. Notes some improvement with her headache and neck pain after OMT session yesterday afternoon. Denies chest pain, shortness of breath, chills or fever. Review of Systems Review of Systems: As per above Physical Exam Constitutional: WD/WN, vitals as above Eyes: Anicteric sclerae ENMT: Moist mucous membranes. Missing dentition. External ears and nose normal. Respiratory: normal respiratory effort, lungs clear to auscultation Cardiovascular: Rate/Rhythm: regular rate and regular rhythm Gastrointestinal (Abdomen): Soft, nondistended. Nontender to palpation. Musculoskeletal: Tight paraspinal musculature at c-spine. Tenderness to palpation of same region. Skin: no rashes, warm and dry Results & Data Results & Data Vital Signs (Past 12 Hours) Vital Signs Temp Pulse Pulse Resp BP BP Pulse Ox 01/28/23 07:05 37.1 C 78 21 131/67 93 01/27/23 23:00 85 01/28/23 03:01 36.6 C 77 18 127/63 94 01/27/23 22:56 36.7 C 83 18 131/65 93 O2 Del Method 01/28/23 07:05 Room Air 01/27/23 23:00 01/28/23 03:01 Room Air 01/27/23 22:56 Room Air Resident Activity Tracking Resident Involvement: Resident Care Provided Care Provided: Adult Hospital Medicine (3) Hypothyroidism Hypothyroidism type: acquired Qualified Code(s): E03.9 - Hypothyroidism, unspecified
[2023-01-28] MEDS: INSULIN ASPART PER UNIT CHARGE SC SCH ×4 (08:09→20:26)
[2023-01-28] MEDS: ATORVASTATIN 20 MG TAB PO SCH (09:05)
[2023-01-28] MEDS: SODIUM CHLORIDE 1 GM TABLET PO SCH ×2 (09:05→19:56)
[2023-01-28] MEDS: MAGNESIUM OXIDE 400 MG TAB PO SCH ×2 (09:05→20:47)
[2023-01-28] MEDS: PHENYTOIN SODIUM ER 100 MG CAP PO SCH ×2 (09:05→19:56)
[2023-01-28] MEDS: LEVOTHYROXINE SODIUM 25 MCG TABLET PO SCH (09:05)
[2023-01-28] MEDS: levETIRAcetam 500 MG TAB PO SCH ×2 (09:05→19:56)
--- NOTE | 2023-01-28 18:01 | Billing Data ---
Date of Service January 28, 2023 Coding Level of Care Code 35300 SUB INP/OBS CARE
--- NOTE | 2023-01-28 18:02 | Hospitalist Progress Note ---
Date of Service January 28, 2023 Assessment & Plan Admission and Anticipated Discharge Date Admission Date: January 24, 2023 Results & Data Results & Data Vital Signs (Past 12 Hours) Vital Signs Temp Pulse Pulse Resp BP BP Pulse Ox 01/28/23 14:25 98.1 F 78 16 126/81 94 01/28/23 09:05 01/28/23 09:03 97.7 F 90 18 127/59 L 94 01/28/23 08:17 88 01/28/23 07:05 98.8 F 78 21 131/67 93 O2 Del Method 01/28/23 14:25 Room Air 01/28/23 09:05 Room Air 01/28/23 09:03 Room Air 01/28/23 08:17 01/28/23 07:05 Room Air PG Care Time/CCT Total # of Minutes Spent Total Time Spent with Patient: Total time spent is greater than 50% in coordination of care (as documented) at patient's floor/unit and/or counseling patient: Coding Level of Care Code None Diagnoses CPT Codes Musculoskeletal - Musculoskeletal: 36368 Osteo Kvng Tr 1-2 Body regions ([id number])
[2023-01-28] MEDS: ENOXAPARIN INJ 40 MG/0.4 ML SYR SQ SCH (19:54)
[2023-01-28] MEDS: PHENYTOIN SODIUM ER 30 MG CAP PO SCH (19:57)
[2023-01-28] MEDS: DICLOFENAC SOD 1% GEL 100 GM TUBE EXT SCH (20:00)
[2023-01-29] MEDS: ACETAMINOPHEN 500 MG TAB PO SCH ×2 (06:07→12:27)
[2023-01-29 07:42] LABS: Basophils # (auto) 0.03 K/uL (0-0.2); Basophils % (auto) 0.4 %; Eosinophils # (auto) 0.23 K/uL (0-0.50); Hemoglobin 10.2 g/dl (12.0-16.0); Immature Granulocytes # (auto) 0.02 K/uL (0.01-0.20); Immature Granulocytes % (auto) 0.3 %; Lymphocytes # (auto) 2.08 K/uL (1.2-3.4); Lymphocytes % (auto) 26.8 %; Mean Corpuscular Hemoglobin 32.2 pg (25.0-34.0); Mean Corpuscular Volume 94.6 fL (80.0-100.0); Mean Platelet Volume 9.6 fL (9.4-12.4); Monocytes % (auto) 11.6 %; Neutrophils # (auto) 4.49 K/uL (1.40-6.50); Neutrophils % (auto) 57.9 %; Platelet Count 260 K/uL (130-400); RDW Coefficient of Variation 13.7 % (11.5-14.5); RDW Standard Deviation 47.7 fL (36.4-46.3); Red Blood Count 3.17 M/uL (4.20-5.40); White Blood Count 7.75 K/ul (4.8-10.8)
[2023-01-29 07:46] LABS: BUN Creatinine Ratio 12.8 (10-20); Calcium 9.2 mg/dl (8.6-10.3); Creatinine Clr Calc Pharmacy 80.4 ml/min; Est GFR (African American) 104.4 ml/min; Est GFR (Non-African American) 90.1 ml/min; Potassium 4.2 mmol/L (3.5-5.1)
[2023-01-29] MEDS: MAGNESIUM OXIDE 400 MG TAB PO SCH (08:37)
[2023-01-29] MEDS: DICLOFENAC SOD 1% GEL 100 GM TUBE EXT SCH ×2 (08:37→12:28)
[2023-01-29] MEDS: PHENYTOIN SODIUM ER 100 MG CAP PO SCH (08:38)
[2023-01-29] MEDS: levETIRAcetam 500 MG TAB PO SCH (08:38)
[2023-01-29] MEDS: LEVOTHYROXINE SODIUM 25 MCG TABLET PO SCH (08:38)
[2023-01-29] MEDS: ATORVASTATIN 20 MG TAB PO SCH (08:39)
[2023-01-29] MEDS: SODIUM CHLORIDE 1 GM TABLET PO SCH (08:39)
[2023-01-29] MEDS: INSULIN ASPART PER UNIT CHARGE SC SCH ×2 (09:11→12:28)
--- NOTE | 2023-01-29 13:19 | Discharge Summary ---
Date of Service January 29, 2023 Admission HPI Per Admitting Provider Agata is an 86 year old woman with a past medical history of epilepsy (on Keppra, Dilantin), DM2, CVA (~20 years ago), dyslipidemia, hypothyroidism, GERD who presented to the [facility] ED on 01/24/23 with recent seizures today due to missed antiepileptic medications last night. The patient reportedly was seizing while being wheeled to her ED room on arrival. In the ED the patient was noted to be hypertensive at 184/88, tachycardic with HR in the low 100's, but otherwise stable. Labs were significant for a leukocytosis of 11, MCV of 101, AG of 14 with bicarb of 21, glucose of 152, initial lactate of 3.2, negative UA and covid [address] of the head/brain wo con was read as "No acute intracranial hemorrhage, no evidence of acute territorial infarction or other acute intracranial disease process.". Chest xray was read as "No acute chest disease.". Prior to admission the patient was given 1L NSS and 2gm IV Keppra. At the time of the exam the patient was lying in bed and awake, no current seizure activity. History was unable to be obtained from the patient at this time as she is known to have prolonged post-ictal states of fatigue/non-verbal states. I was able to call and speak with her Daughter, Sara Reddy to obtain more information. Her daughter explains that the patient lives with her Son, (Daughter's Brother), but the daughter organizes and sets out all of her medications. The daughter watches her during the day when the son is at work. The patient's daughter arrived to the house this am and noticed that the patient did not take her HS doses of Dilantin or Keppra last night. She subsequently found her mother standing in the bathroom. The patient's daughter does not believe that her mother fell and states that she was already in her post-ictal state and would not take her oral medications, which is why EMS was called. Her daughter confirms that the patient has expressed her wishes to be a DNR/DNI when they spoke in the past. Admission Exam Per Admitting Provider Physical Exam: General:In no acute distress, stated age, non-toxic appearing HEENT:Normocephalic, atraumatic, no scleral icterus, pupils around round, symmetrical, and reactive to light, moist mucus membranes, trachea midline, no thyromegaly Chest/Pulm:No respiratory distress, symmetrical chest expansion, clear breath sounds throughout Cardiac:RRR, no murmurs noted Abdomen:Negative for ascites and bruising, normoactive bowel sounds, soft, non-tender to palpation throughout Musculoskeletal:Symmetrical and without signs of acute trauma, able to move extremities voluntarily but will not follow commands for strength testing Extremities:Radial, dorsalis pedis, and posterior tibial pulses are intact and symmetrical, no edema noted in the BL LE's Skin:Warm, dry, no rashes , lesions, or scars noted Neuro:Alert, no current seizure activity, no focal neuro defects, will not respond to questioning or follow commands (consistent with her prolonged post- ictal stages in the past) Psych:No acute distress Principal Diagnosis Seizure Discharge Exam Constitutional WD/WN, vitals as above ENMT Missing dentition. Moist mucous membranes Respiratory normal respiratory effort, lungs clear to auscultation Cardiovascular Rate/Rhythm: regular rate and regular rhythm Gastrointestinal (Abdomen) normal bowel sounds, soft, nontender, no hepatosplenomegaly Skin no rashes, warm and dry Psychiatric Orientation: alert and cooperative Discharge Data Allergies Allergy/AdvReac Type Severity Reaction Status Date / Time levofloxacin [From Levaquin] Allergy Severe Possible Verified 01/24/23 15:09 seizure peanut Allergy Intermediate SNEEZE, Verified 01/24/23 15:09 COUGH allopurinol [From Zyloprim] Allergy Unknown Unknown Verified 01/24/23 15:09 lorazepam Allergy Unknown Unknown Verified 01/24/23 15:09 nortriptyline Allergy Unknown Unknown Verified 01/24/23 15:09 Opioids - Morphine Analogues Allergy Unknown Unknown Verified 01/24/23 15:09 Penicillins Allergy Unknown Unknown Verified 01/24/23 15:09 Sulfa (Sulfonamide Allergy Unknown Unknown Verified 01/24/23 15:09 Antibiotics) risedronate sodium AdvReac Intermediate Intolerence Verified 01/24/23 15:09 [From Actonel] Consultations 01/24/23 13:51 ED Decision to Admit Stat Ordered Studies 01/24/23 10:53 CT head/brain wo con Stat 01/27/23 10:16 US venous duplex leg [US venous doppler LE LT] Urgent Head CT 01/24/23 10:53 CT head/brain wo con CLINICAL HISTORY: Sz Technique: Contiguous axial CT images of the head were acquired from the base of the skull to the vertex without intravenous contrast administration. Images were viewed in brain, subdural and bone windows. Automated dose lowering techniques and/or adjustment according to patient size were utilized for this exam. Comparison: Comparison is made to CTA head 10/25/2022 Findings: Areas of decreased attenuation are present in the periventricular and subcortical white matter bilaterally consistent with small vessel ischemic disease. Generalized cerebral atrophy with commensurate enlargement of the ventricles, sulci, and cisterns is also present. There is no acute intracranial hemorrhage or evidence of acute territorial infarction. No shift of the midline structures, mass effect, or extra-axial abnormalities are shown. Atherosclerotic calcifications are present in the intracranial segments of the internal carotid arteries. Imaged portions of the paranasal sinuses and mastoid air cells are clear. The orbits appear normal. There are no acute fractures of the calvaria or scalp swelling. Impression: No acute intracranial hemorrhage, no evidence of acute territorial infarction or other acute intracranial disease process. ACT 112: Negative or not required by law. Electronically signed by: Todd Burdick M.D. 01/24/2023 11:27 AM Chest X-Ray 01/24/23 11:24 XR chest 1V portable CLINICAL HISTORY: weakness TECHNIQUE: Single frontal radiograph of the chest was obtained. Comparison: Comparison is made to chest radiograph 10/25/2022 FINDINGS: No lines and tubes are seen. Calcified aortic knob is seen. The lungs are clear. No evidence of pleural effusion or pneumothorax. IMPRESSION: No acute chest disease. ACT 112: Negative or not required by law. Electronically signed by: Todd Burdick M.D. 01/24/2023 11:58 AM Chest X-Ray 01/27/23 09:52 TWO VIEW CHEST CLINICAL HISTORY: Fever. FINDINGS: AP and lateral chest radiographs are compared to study dated 01/24/2023 and correlated with chest CT dated 11/30/2019. The heart is enlarged noting atherosclerotic calcification of the thoracic aorta. The pulmonary vasculature is noncongested. Chronic interstitial thickening is similar to previous. There is bibasilar scarring/atelectasis. No airspace consolidation or pleural effusion is identified. There is no pneumothorax. The skeletal structures are osteopenic. There are compression deformities in the thoracic spine. Degenerative change and hyperkyphosis is noted in the spine. Advanced arthritic change is seen in the shoulders. Cholecystectomy clips are noted in the upper abdomen. IMPRESSION: Cardiomegaly and chronic parenchymal changes as above with no acute cardiopulmonary abnormality identified. ACT 112: Negative or not required by law. Electronically signed by: Connor Wright M.D. 01/27/2023 11:17 AM Venous Doppler Study 01/27/23 10:16 LEFT LOWER EXTREMITY VENOUS DOPPLER CLINICAL HISTORY: Left leg pain. COMPARISON STUDY: No previous studies for comparison. TECHNIQUE: Sonography of the deep venous system of the left lower extremity was performed. Compression and augmentation were evaluated. FINDINGS: The left common femoral, superficial femoral and popliteal veins were compressible. Augmentation was normal. Flow was shown within the deep calf vesse ls. IMPRESSION: No evidence of deep venous thrombus within the left lower extremity. ACT 112: Negative or not required by law. Electronically signed by: Migel Tillman M.D. 01/27/2023 11:42 AM Hospital Course (1) Seizure: (2) Seizure disorder: (3) Hypothyroidism: (4) Hyponatremia: (5) Type 2 diabetes mellitus: Plan 87-year-old female with past medical history of epilepsy (on Keppra, Dilantin), DM2, CVA (~20 years ago), dyslipidemia, hypothyroidism, GERD who presented w/ seizures in setting of missed antiepileptic medications. Epilepsy -Reportedly w/ seizure like activity in the ED; no reoccurrence of seizure like activity while admitted. CT head neg. -s/p 2g IV Keppra in the ED -Per neuro, fosphenytoin loading dose given for low phenytoin level of 3.1 -Continued home dilantin and phenytoin -Check phenytoin level in 2 weeks as outpatient, adjust as needed Difficulty with IADLs. Mild cognitive impairment? -Continued discussion w/ patient's daughter regarding optimal long-term safety -Per PT/OT, not safe for home at this time given lower extremity weakness and inability to stand. Recommends SNF. -Plan to discharge to [facility], patient and family in agreement Headache, Elevated Temp (Resolved) -Improved headache, pain responding to Tylenol -OMT sessions for headache/neck pain -Continue Voltaren gel applied to neck -No further elevated temps or other signs convincing of infection -Chest x-ray (01/27) without signs of acute cardiopulmonary changes -As below, venous duplex also negative for DVT -Noted some increase in frequency of urination overnight, but no dysuria or other complaints. Advised patient that this will be monitored, but would not necessitate further workup at this point. Left leg pain and weakness -Continue scheduled Tylenol -Has had some degree at baseline per daughter, patient notes that she has "joint issues" in her left knee. Uses wheelchair at home. Prior fall in distant past and prior stroke. -Due to ongoing discomfort and elevated temp on one occasion, ordered left venous duplex- negative for DVT. Type 2 diabetes mellitus -A1c 5.6 (01/2023) -Loose correction as needed while inpatient, not needing basal, held home metformin. -Can resume home metformin at discharge Hypothyroidism -Continue home levothyroxine. Low normal TSH per records; consider outpatient follow up History of stroke -Continue home statin Hyponatremia, mild -Chronic, stable, continue home PO NaCl Patient was DNR/DNI during this admission. Total Time Total Time Spent Total Time Spent (In Minutes): .<30 Discharge Plan Discharge Items Patient Disposition: [facility] Reason For Visit: SEIZURES Discharge Diagnosis: Seizure Activity: Per Instructions section Non-emergency contact: Primary Care Provider and Neurologist Call non-emergency contact if: you have any medication questions and your symptoms worsen Follow-up/Referrals: Francesca Tillman MD [Primary Care Provider] - Diet: Carb Consistent or DM2 Addtl Attending Provider Instructions: You admitted to [facility] for seizure due to missed medication doses. As such, you were given IV seizure medications due to your inability tolerate oral medications at the time of your admission. However, as you improved we were able to restart you on your home regimen. It is important that you continue to take these medications as prescribed, as even 1 missed dose can lead to breakthrough seizures. It is recommended that you follow-up with your primary care provider and neurolo gist within the next 2 weeks for continued care and monitoring of your medication levels. If you develop any repeat seizures or new onset concerning symptoms, please return to the hospital for reevaluation. 87-year-old female with past medical history of epilepsy (on Keppra, Dilantin), DM2, CVA (~20 years ago), dyslipidemia, hypothyroidism, GERD who presented w/ seizures in setting of missed antiepileptic medications. Epilepsy -Reportedly w/ seizure like activity in the ED; no reoccurrence of seizure like activity while admitted. CT head neg. -s/p 2g IV Keppra in the ED -Per neuro, fosphenytoin loading dose given for low phenytoin level of 3.1 -Continue home dilantin and phenytoin -Check phenytoin level in 2 weeks as outpatient, adjust as needed Difficulty with IADLs. Mild cognitive impairment? -Continue discussion w/ patient's daughter regarding optimal long-term safety -Per PT/OT, not safe for home at this time given lower extremity weakness and inability to stand. Recommends SNF. -Plan to discharge to [facility], patient and family in agreement Headache, Elevated Temp (Resolved) -Improved headache, pain responding to Tylenol -OMT sessions for headache/neck pain -Continue Voltaren gel applied to neck -No further elevated temps or other signs convincing of infection -Chest x-ray (01/27) without signs of acute cardiopulmonary changes -As below, venous duplex also negative for DVT Left leg pain and weakness -Continue scheduled Tylenol -Has had some degree at baseline per daughter, patient notes that she has "joint issues" in her left knee. Uses wheelchair at home. Prior fall in distant past and prior stroke. -Due to ongoing discomfort and elevated temp on one occasion, ordered left venous duplex- negative for DVT. Type 2 diabetes mellitus -A1c 5.6 (01/2023) -Loose correction as needed while inpatient, not needing basal, held home metformin. -Can resume home metformin at discharge Hypothyroidism -Continue home levothyroxine. Low normal TSH per records; consider outpatient follow up History of stroke -Continue home statin Hyponatremia, mild -Chronic, stable, continue home PO NaCl Patient was DNR/DNI during this admission. Pending Studies at Discharge: No Stand-Alone Forms: My [employer], Smoking Cessation Skilled Items Lines: None Urinary Catheter: No Medications and DC Order Prescriptions: Continued metformin 500 mg tablet 500 mg PO BID Qty: 180 3RF atorvastatin 20 mg tablet 20 mg PO DAILY Qty: 90 3RF levothyroxine 25 mcg tablet 25 mcg PO DAILY Qty: 90 3RF phenytoin sodium extended [Dilantin Extended] 100 mg capsule 100 mg PO BID 90 Days Qty: 180 3RF Rx Instructions: total of 100mg in am and 130mg in pm BRAND NECESSARY Dilantin 30 mg capsule 30 mg PO QPM Qty: 90 3RF levetiracetam 1,000 mg tablet 1,000 mg PO BID Qty: 180 3RF acetaminophen 325 mg Tablet 650 mg PO Q4H PRN (Reason: pain) Qty: 30 0RF cyanocobalamin (vitamin B-12) 1,000 mcg capsule 1,000 mcg PO DAILY Qty: 30 0RF sodium chloride 1,000 mg Tablet,Soluble 1,000 mg PO BID diclofenac sodium [Voltaren Arthritis Pain] 1 % gel 2 g topical QID PRN (Reason: Pain) magnesium oxide 400 mg (241.3 mg magnesium) Tablet 400 mg PO BID Qty: 30 0RF Discharge Orders: Discharge Order (Routine); Ordered 01/29/23 Ordered By: Eden Pickett Admission Data Admit Date/Time: 01/24/23 15:39 Attending Provider: Sandip Adan Admit Provider: Jonathan Pickens Primary Care Provider: Francesca Tillman Other Providers: [place] ; [facility], ; Jonathan Pickens Other Interventions: Discharge Summary Assessment (RN) Last Done: 01/29/23 11:16 Supervising Physician Co-Signing Physician Notes Attending attestation I personally examined the patient and verified all villarreal points of history and exam, discussed case, and agree with decision making with Dr Pickett for SNF today. No new complaints. Vitals noted, in general she is awake and alert pleasant no distress. Breathing unlabored no accessory muscle use good effort. Epiletpic seizure disorder with history of prolonged post-ictal states - neurology consult - improved and tolerating home medication regimen without complaint, no further seizures, stable Chronic LE pain and weakness - APAP scheduled, consider opioid medications if needed. PT/OT evaluation with results as noted, not safe for home -for SNF today Memory issues with concern for underlying dementia - see 01/25 note for discussion re: home situation and safety, would recommend placement as well but family would be able to provide 24 hour care if patient willing to move in with daughter (instead of home with daughter visiting)SNF for now Cspine somatic dysfunction / tension headache - OMT as above done a few times during her stay, continue Voltaren gel otherwise as above.
--- NOTE | 2023-01-29 17:56 | Billing Data ---
Date of Service January 29, 2023 Coding Level of Care Code 59143 IN/OBS DISCH 30 MIN/LESS
== END 2023-01-29 12:30 | DRG 101 ==
LOC: ED 10:46 → SUATTDRO 15:39 → 2E 15:39 → 3N 01-28 08:34

== ENCOUNTER 2023-07-09 20:23 | Inpatient (IN) ==
[2023-07-09] MEDS ORDERED: levETIRAcetam 1,000 MG in 0.9 % SODIUM CHLORIDE 100 ML IV STA (20:46)
--- NOTE | 2023-07-09 20:59 | Emergency Department Note ---
Impression & Plan Seizure ADMIT ED Provider Note HPI: History obtained from bedside RN via EMS report The patient is a 87-year-old female with history of previous CVA, subsequent seizure disorder, on Keppra and Dilantin, presents emergency department from her nursing facility after suspected seizure. Patient apparently gets postictal states where she has transient aphasia, there was an episode of this earlier tonight at the nursing facility and therefore the patient was sent via EMS over concern for suspected seizure with postictal state. On arrival here to the ED the patient is not speaking to me however she is able to follow commands. Patient is mildly hypotensive at 96/68 on arrival, heart rate is within normal limits, patient is otherwise alert and without focal motor deficits. ROS: - Per HPI Differential Diagnosis: Breakthrough seizure with postictal state, acute ischemic stroke, intracranial hemorrhage to include subarachnoid hemorrhage, encephalopathy, sepsis, UTI, amongst other potential pathologies. *Outpatient medications and allergy history reviewed. PE: General: Alert to verbal stimuli, nonverbal, frail appearing HEENT: Normocephalic, trachea midline Eyes: Extraocular eye movement is intact, no scleral erythema Pulmonary: Clear to auscultation bilaterally, no wheezing Cardio: Regular rate and rhythm GI: Abdomen is soft to palpation : No suprapubic tenderness MSK: No evidence of trauma or malformation of the extremities, no edema Skin: No evidence of rash Neuro: Alert to verbal stimuli, follows commands, no obvious focal motor deficits Psychiatric: Cooperative INDEPENDENT INTERPRETATIONS: compliance monitor: (As interpreted by myself): - An order was placed for continuous cardiac monitoring - Patient was noted to be in sinus rhythm with a rate of 103 EKG: (As interpreted by myself): Rate: 91 Rhythm: Sinus rhythm Intervals: Within normal limits ST changes: No ST elevation Time: 2030 Interventions provided in ED: -IV fluid bolus, IV Keppra Medical Decision Making: Patient presented to the emergency department with concern for possible postictal state, patient does have seizure disorder and has been aphasic which is consistent with postictal states she has had in the past. IV was established lab work obtained, patient was placed on monitoring tech. Lab work shows no leukocytosis, hemoglobin is stable, platelet count is normal. CMP does not show any critical findings, there is hyponatremia noted at 131 for which the patient was given IV fluids. CT imaging of the head without contrast was obtained that does not show any evidence of any acute intracranial hemorrhage or obvious stroke. Patient was loaded in the ED with IV Keppra, she was given IV fluids. On my reassessment the patient remains aphasic but is more alert and is still following commands. I did discuss the patient's presentation with her daughter, Sara Reddy, on the phone, she does confirm that the patient has had prolonged postictal states in the past with similar features. She does request observation admission overnight which I think is reasonable. Case was therefore then discussed with the on-call hospitalist, Dr. Ch, and the patient was placed for admission in stable condition for further care. Consultants/Discussions held with other healthcare providers: -Hospitalist, Dr. Ch Disposition discussion held by myself with: -Patient's daughter on the phone Diagnosis: 1. Breakthrough seizure, acute 2. Postictal state, prolonged, acute, with aphasia 3. Hyponatremia, acute on chronic 4. Anemia, chronic Disposition: Admission Georgi Elam, DO Emergency Medicine Past Med/Surg History Medical History Seizure Dilantin toxicity Hyponatremia Idiopathic polyneuropathy B12 deficiency Carpal tunnel syndrome, right Gallstone pancreatitis H/O: CVA (cerebrovascular accident) Type 2 diabetes mellitus History of stroke 20 YRS AGO Hiatal hernia Acid reflux Seizure disorder epilepsy, primary generalized seizure disorder--follows with Dr. 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- taking seizure meds- last seizure beginning of 2019 secondary to low phenytoin level in context of tx of infection- has had no interval seizures- clinically stable- follow up six months Osteoporosis Osteoarthritis Hypothyroidism Dyslipidemia Surgical History S/P endoscopic carpal tunnel release 06/14/2021 Right wrist History of ankle surgery x2--left d/t fracture History of open reduction and internal fixation (ORIF) procedure left wrist--hardware removed History of tooth extraction all top removed/most of bottom History of ERCP (07/29/20) History of right cataract extraction S/P cholecystectomy (07/29/20) H/O: hysterectomy (~1965) History of appendectomy (~1965) History of surgery on left wrist History of colonoscopy Family History Father Hypertension Mother Diabetes Myocardial infarction Brother Diabetes Lung disease Brother Diabetes Brother Diabetes Brother Diabetes Brother Diabetes Other No family history of adverse response to anesthesia Denies family history of Ovarian cancer Prostate cancer Breast cancer Colorectal cancer Social History Smoking Status: Unknown if ever smoked Second Hand Exposure: No; Do You Dip or Chew Tobacco: No; Hx Alcohol Use: No Hx Substance Use: No Preferred Language: Georgian Communication Ability: Unable Communication Ability Comment: pt in postictal stage Visual Impairment: No Limitations Hearing Ability: Hard of Hearing 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 How many Children do You have: 2 Feels Safe at Home: Yes Safety Concerns: Feels Safe At This Time Childhood Exposure to Second-Hand Smoke: Yes Diet: regular Diet Comment: Patient watches serving sizes and counts carefully Dental Care, Regularly: No Physical Activity Frequency: Daily Seatbelt Use: always Sunscreen Use: Yes (when she goes outside ) Gender Identity: Female Allergies Allergies Allergy/AdvReac Type Severity Reaction Status Date / Time levofloxacin [From Levaquin] Allergy Severe Possible Verified 07/09/23 21:07 seizure peanut Allergy Intermediate SNEEZE, Verified 07/09/23 21:07 COUGH allopurinol [From Zyloprim] Allergy Unknown ON CENTRE Verified 07/09/23 21:07 CARE MED LIST lorazepam Allergy Unknown ON CENTRE Verified 07/09/23 21:07 CARE MED LIST nortriptyline Allergy Unknown ON CENTRE Verified 07/09/23 21:07 CARE MED LIST Opioids - Morphine Analogues Allergy Unknown ON CENTRE Verified 07/09/23 21:07 CARE MED LIST Penicillins Allergy Unknown ON CENTRE Verified 07/09/23 21:07 CARE MED LIST Sulfa (Sulfonamide Allergy Unknown ON CENTRE Verified 07/09/23 21:07 Antibiotics) CARE MED LIST risedronate sodium AdvReac Intermediate Intolerence Verified 07/09/23 21:07 [From Actonel] Home Meds Home Medications Medication Instructions Recorded Confirmed diclofenac sodium 1 % topical gel 2 g topical QID Pain 10/16/22 07/09/23 (Voltaren Arthritis Pain) sodium chloride 1,000 mg soluble 1,000 mg PO BID 10/16/22 07/09/23 tablet acetaminophen 325 mg tablet 650 mg PO Q6H PRN FEVER/PAIN 07/09/23 07/09/23 levothyroxine 25 mcg tablet 25 mcg PO DAILYBB 07/09/23 07/09/23 menthol 1.6 mg lozenges (Luden's 1.6 mg PO Q1H PRN THROAT PAIN 07/09/23 07/09/23 (menthol)) metformin 500 mg tablet 500 mg PO BIDM 07/09/23 07/09/23 phenytoin sodium extended 100 mg See Rx Instructions .Route .COMPLEX 07/09/23 07/09/23 capsule (Dilantin Extended) sumatriptan succinate 50 mg tablet 50 mg PO DIRECTED PRN Migraine 07/09/23 07/09/23 (Imitrex) Headache Previous Rx's Medication Instructions Recorded cyanocobalamin (vitamin B-12) 1,000 mcg PO DAILY #30 caps 11/16/21 1,000 mcg capsule magnesium oxide 400 mg (241.3 mg 400 mg PO BID #30 tabs 10/31/22 magnesium) tablet levetiracetam 1,000 mg tablet 1,000 mg PO BID #180 tabs 12/02/22 Results & Data (ED) Vital Signs Vital Signs - 24 hr 07/09/23 20:36 07/09/23 20:49 07/09/23 20:50 Temperature 36.4 C L Temperature Source Oral Pulse Rate 109 H 93 H 94 H Pulse Rate from SpO2 Sensor 93 H Respiratory Rate 21 25 H 25 H Respiratory Effort / Characteristics Non-Labored Respiratory Depth Normal Blood Pressure 96/68 L Blood Pressure Mean 77 Pulse Oximetry 96 96 Oxygen Delivery Method Room Air Sepsis Recent Fever Within 48 Hours No Sepsis New/Unexplained Change in Mental Status N/A Sepsis Action Taken by Nursing No Action Required 07/09/23 20:54 07/09/23 21:00 07/09/23 21:10 Temperature Temperature Source Pulse Rate 92 H 96 H 100 H Pulse Rate from SpO2 Sensor Respiratory Rate 22 19 Respiratory Effort / Characteristics Respiratory Depth Blood Pressure Blood Pressure Mean Pulse Oximetry Oxygen Delivery Method Sepsis Recent Fever Within 48 Hours Sepsis New/Unexplained Change in Mental Status Sepsis Action Taken by Nursing 07/09/23 21:33 07/09/23 21:36 07/09/23 21:36 Temperature Temperature Source Pulse Rate 92 H 92 H Pulse Rate from SpO2 Sensor 92 H 92 H Respiratory Rate 22 18 Respiratory Effort / Characteristics Respiratory Depth Blood Pressure 93/67 L Blood Pressure Mean 78 Pulse Oximetry 95 95 Oxygen Delivery Method Sepsis Recent Fever Within 48 Hours Sepsis New/Unexplained Change in Mental Status Sepsis Action Taken by Nursing 07/09/23 21:40 07/09/23 22:00 07/09/23 22:01 Temperature Temperature Source Pulse Rate 82 76 90 Pulse Rate from SpO2 Sensor 82 77 82 Respiratory Rate 20 21 17 Respiratory Effort / Characteristics Respiratory Depth Blood Pressure Blood Pressure Mean Pulse Oximetry 94 95 94 Oxygen Delivery Method Sepsis Recent Fever Within 48 Hours Sepsis New/Unexplained Change in Mental Status Sepsis Action Taken by Nursing 07/09/23 22:01 07/09/23 22:30 07/09/23 22:30 Temperature Temperature Source Pulse Rate 81 Pulse Rate from SpO2 Sensor 81 Respiratory Rate 20 Respiratory Effort / Characteristics Respiratory Depth Blood Pressure 143/54 H 115/57 L Blood Pressure Mean 105 91 Pulse Oximetry 95 Oxygen Delivery Method Sepsis Recent Fever Within 48 Hours Sepsis New/Unexplained Change in Mental Status Sepsis Action Taken by Nursing 07/09/23 23:00 07/09/23 23:30 07/10/23 00:00 Temperature Temperature Source Pulse Rate 76 85 76 Pulse Rate from SpO2 Sensor 79 Respiratory Rate 21 22 20 Respiratory Effort / Characteristics Respiratory Depth Blood Pressure 167/63 H 144/75 H Blood Pressure Mean 97 98 Pulse Oximetry 95 95 93 Oxygen Delivery Method Sepsis Recent Fever Within 48 Hours Sepsis New/Unexplained Change in Mental Status Sepsis Action Taken by Nursing 07/10/23 00:30 07/10/23 00:44 07/10/23 01:00 Temperature Temperature Source Pulse Rate 71 99 H 90 Pulse Rate from SpO2 Sensor Respiratory Rate 22 22 Respiratory Effort / Characteristics Respiratory Depth Blood Pressure 134/69 151/119 H Blood Pressure Mean 90 129 Pulse Oximetry 93 94 Oxygen Delivery Method Sepsis Recent Fever Within 48 Hours Sepsis New/Unexplained Change in Mental Status Sepsis Action Taken by Nursing Laboratory Data 07/10/23 04:00 07/10/23 04:00 Lab Results 07/09/23 07/09/23 07/09/23 Range/Units 21:00 21:15 23:28 WBC Cancelled Cancelled 6.14 RBC Cancelled Cancelled 3.56 L Hgb Cancelled Cancelled 11.3 L Hct Cancelled Cancelled 34.1 L MCV Cancelled Cancelled 95.8 MCH Cancelled Cancelled 31.7 MCHC Cancelled Cancelled 33.1 RDW Std Deviation Cancelled Cancelled 49.2 H RDW Coeff of Ana Cancelled Cancelled 13.8 Plt Count Cancelled Cancelled 291 MPV Cancelled Cancelled 8.5 L Immature Gran % (Auto) Cancelled Cancelled 0.7 Neut % (Auto) Cancelled Cancelled 61.8 Lymph % (Auto) Cancelled Cancelled 27.5 Mobile % (Auto) Cancelled Cancelled 6.7 Eos % (Auto) Cancelled Cancelled 2.8 Baso % (Auto) Cancelled Cancelled 0.5 Neut # (Auto) Cancelled Cancelled 3.80 Lymph # (Auto) Cancelled Cancelled 1.69 Mobile # (Auto) Cancelled Cancelled 0.41 Eos # (Auto) Cancelled Cancelled 0.17 Baso # (Auto) Cancelled Cancelled 0.03 Immature Gran # (Auto) Cancelled Cancelled 0.04 Absolute Nucleated RBC Cancelled Cancelled Nucleated RBC % (auto) Cancelled Cancelled Neutrophils % (Manual) Cancelled Cancelled Band Neutrophils % Cancelled Cancelled Lymphocytes % (Manual) Cancelled Cancelled Prolymphocyte % Cancelled Cancelled Reactive Lymphs % (Man) Cancelled Cancelled Monocytes % (Manual) Cancelled Cancelled Eosinophils % (Manual) Cancelled Cancelled Basophils % (Manual) Cancelled Cancelled Metamyelocytes % (Man) Cancelled Cancelled Myelocytes % (Man) Cancelled Cancelled Promyelocytes % (Man) Cancelled Cancelled Blast Cells % (Manual) Cancelled Cancelled Plasma Cell % (Manual) Cancelled Cancelled Other Cells % Cancelled Cancelled Nucleated RBC % Cancelled Cancelled Neutrophils # (Manual) Cancelled Cancelled Band Neutrophils # Cancelled Cancelled Total Absolute Neuts Cancelled Cancelled Lymphocytes # (Manual) Cancelled Cancelled Prolymphocyte # Cancelled Cancelled Reactive Lymphs # Cancelled Cancelled Total Abs Lymphocytes Cancelled Cancelled Monocytes # (Manual) Cancelled Cancelled Eosinophils # (Manual) Cancelled Cancelled Basophils # (Manual) Cancelled Cancelled Metamyelocytes # (Man) Cancelled Cancelled Myelocytes # (Manual) Cancelled Cancelled Promyelocytes # (Man) Cancelled Cancelled Blast Cells # (Man) Cancelled Cancelled Plasma Cell # (Manual) Cancelled Cancelled Other Cells # Cancelled Cancelled Nucleated RBCs # (Man) Cancelled Cancelled Hypersegmented Neuts Cancelled Cancelled Hyposegmented Neuts Cancelled Cancelled Hypogranular Neuts Cancelled Cancelled Large Granular Lymphs Cancelled Cancelled # Lrg Granular Lymphs Cancelled Cancelled Hairy Cells Cancelled Cancelled Smudge Cells Cancelled Cancelled Toxic Granulation Cancelled Cancelled Toxic Vacuolation Cancelled Cancelled Dohle Bodies Cancelled Cancelled Radha Rods Cancelled Cancelled Platelet Estimate Cancelled Cancelled Hypogranular Platelets Cancelled Cancelled Giant Platelets Cancelled Cancelled Platelet Satelliting Cancelled Cancelled RBC Morphology Cancelled Cancelled Polychromasia Cancelled Cancelled Hypochromasia Cancelled Cancelled Poikilocytosis Cancelled Cancelled Basophilic Stippling Cancelled Cancelled Anisocytosis Cancelled Cancelled Microcytosis Cancelled Cancelled Macrocytosis Cancelled Cancelled Spherocytes Cancelled Cancelled Pappenheimer Bodies Cancelled Cancelled Sickle Cells Cancelled Cancelled Target Cells Cancelled Cancelled Tear Drop Cells Cancelled Cancelled Ovalocytes Cancelled Cancelled Stomatocytes Cancelled Cancelled Galvez-[place] Bodies Cancelled Cancelled Echinocytes Cancelled Cancelled Acanthocytes (Spur) Cancelled Cancelled Rouleaux Cancelled Cancelled RBC Agglutinates Cancelled Cancelled Schistocytes Cancelled Cancelled Sezary Cell Cancelled Cancelled Sodium 131 L (136-145) mmol/L Potassium 4.8 (3.5-5.1) mmol/L Chloride 98 (98-107) mmol/L Carbon Dioxide 24 (21-32) mmol/L Anion Gap 9 (3-11) BUN 8 (6-23) mg/dl Creatinine 0.47 L (0.6-1.2) mg/dl Est Cr Clr Drug Dosing 86.9 ml/min Est GFR ( Amer) 104.4 ml/min Est GFR (Non-Af Amer) 90.1 ml/min BUN/Creatinine Ratio 17.0 (10-20) Glucose 124 H (70-99(Fasting)) mg/dl Calcium 9.3 (8.6-10.3) mg/dl Total Bilirubin 0.3 (0.2-1.0) mg/dl AST 25 (13-39) U/L ALT 12 (7-52) U/L Alkaline Phosphatase 78 (34-104) U/L Total Protein 6.8 (6.0-8.3) gm/dl Albumin 3.9 (3.4-5.0) gm/dl Globulin 2.9 (2.5-4.0) gm/dl Albumin/Globulin Ratio 1.3 (0.9-2) Phenytoin 4.0 L (10-20) mcg/ml Blood Parasites ID Cancelled Cancelled Administered Medications Enoxaparin Sodium (Enoxaparin Inj 40 Mg/0.4 Ml Syr) 40 mg SQ Q24H ARIES Stop: 08/09/23 05:59 Last Admin: 07/10/23 06:09 Dose: 40 mg Documented By: ALFREDO Levetiracetam 1,000 mg/ Sodium (Chloride) 110 mls @ 440 mls/hr IV BID ARIES Stop: 08/09/23 08:59 Last Infusion: 07/10/23 10:56 Dose: Infused Documented By: Admin: 07/10/23 09:34 Dose: 440 mls/hr Documented By: LATIA Sodium Chloride (Nss) 1,000 mls @ 80 mls/hr IV .[id number] ARIES Stop: 07/11/23 15:14 Last Admin: 07/10/23 03:41 Dose: 80 mls/hr Documented By: ALFREDO Discontinued Medications Levetiracetam 1,000 mg/ Sodium (Chloride) 110 mls @ 440 mls/hr IV NOW STA Stop: 07/09/23 21:00 Last Infusion: 07/09/23 21:43 Dose: Infused Documented By: Admin: 07/09/23 21:16 Dose: 440 mls/hr Documented By: AYAN Sodium Chloride (Nss) 1,000 mls @ 999 mls/hr IV .Q1H1M ARIES Stop: 07/09/23 22:00 Last Infusion: 07/09/23 22:19 Dose: Infused Documented By: Admin: 07/09/23 21:17 Dose: 999 mls/hr Documented By: AYAN Discharge Plan Visit Data Chief Complaint: Seizure ED Provider: Georgi Elam Discharge Problem: Seizure Discharge Instructions Interventions: ED Discharge Assessment Last Done: 07/10/23 01:25
[2023-07-09] MEDS ORDERED: SODIUM CHLORIDE 0.9% 1,000 ML IV SCH (21:00)
--- NOTE | 2023-07-09 21:41 | CT Scan Report ---
Exam(s): CT HEAD Without Contrast EXAM: CT Head Without Intravenous Contrast CLINICAL HISTORY: Reason for exam: seizure. TECHNIQUE: Axial computed tomography images of the head/brain without intravenous contrast. CTDI is 36.12 mGy and DLP is 547.75 mGy-cm. Automated exposure control was utilized for the study. A dose lowering technique was utilized adhering to the principles of ALARA. COMPARISON: No relevant prior studies available. FINDINGS: No acute intracranial hemorrhage. No midline shift or mass effect. The territorial vann-white matter differentiation is maintained throughout. Age-related cerebral volume loss. Periventricular and subcortical white matter hypoattenuation, consistent with chronic microangiopathy. The visualized orbits appear grossly unremarkable. The calvarium is intact. The visualized paranasal sinuses and mastoid air cells are grossly clear. IMPRESSION: No acute intracranial hemorrhage, midline shift, or mass effect. Electronically signed by: Westley Troncoso MD 07/09/23 21:40 PM
[2023-07-09 21:55] LABS: Albumin Globulin Ratio 1.3 (0.9-2); Albumin Level 3.9 gm/dl (3.4-5.0); Bilirubin,Total 0.3 mg/dl (0.2-1.0); Calcium 9.3 mg/dl (8.6-10.3); Creatinine Clr Calc Pharmacy 86.9 ml/min; Est GFR (African American) 104.4 ml/min; Est GFR (Non-African American) 90.1 ml/min; Globulin 2.9 gm/dl (2.5-4.0); Potassium 4.8 mmol/L (3.5-5.1); Total Protein 6.8 gm/dl (6.0-8.3)
[2023-07-09 23:45] LABS: Basophils # (auto) 0.03 K/uL (0.00-0.20); Basophils % (auto) 0.5 %; Eosinophils # (auto) 0.17 K/uL (0.00-0.50); Eosinophils % (auto) 2.8 %; Hematocrit (blood only) 34.1 % (37.0-47.0); Hemoglobin 11.3 g/dl (12.0-16.0); Immature Granulocytes # (auto) 0.04 K/uL (0.01-0.20); Immature Granulocytes % (auto) 0.7 %; Lymphocytes # (auto) 1.69 K/uL (1.20-3.40); Lymphocytes % (auto) 27.5 %; Mean Corpuscular Hemoglobin 31.7 pg (25.0-34.0); Mean Corpuscular Hgb Conc 33.1 g/dL (32.0-36.0); Mean Corpuscular Volume 95.8 fL (80.0-100.0); Mean Platelet Volume 8.5 fL (9.4-12.4); Monocytes # (auto) 0.41 K/uL (0.11-0.59); Monocytes % (auto) 6.7 %; Neutrophils % (auto) 61.8 %; Platelet Count 291 K/uL (130-400); RDW Coefficient of Variation 13.8 % (11.5-14.5); RDW Standard Deviation 49.2 fL (36.4-46.3); Red Blood Count 3.56 M/uL (4.20-5.40); White Blood Count 6.14 K/ul (4.8-10.8)
--- NOTE | 2023-07-10 00:55 | History & Physical Report ---
Date of Service July 10, 2023 Assessment & Plan (1) Aphasia: Plan: 87 year old female admitted for aphasia and possible seizure. Aphasia/Dilantin level too low/Seizure disorder: -Patient with history of seizure disorder with aphasic post-ictal state. -Had episode of aphasia 07/09 and brought in from [facility]. -CT head negative. Less likely stroke given known symptom replication of post- ictal state, no focal deficits. -On Phenytoin ER 100mg qAM, 150mg qHS; Keppra 1,000mg BID. -Patient's phenytoin level low at 4.0 on admission. -Given IV Keppra 1,000mg in the ER at 9PM. -Speech therapy consulted for evaluation. Hold PO medications for now. -Will continue on IV Keppra 1,000mg BID until cleared to take PO. -Consulted neurology, will appreciate recs. -Seizure precautions. -Hemodynamically stable. -Admit to telemetry. hypothyroidism: -Holding oral medications, can continue if cleared. T2DM: -Hold oral medications. Monitor BSG q4h while NPO. -5U lantus BID. Hx of stroke/dyslipidemia: -Holding oral medications, once clear can continue home statin. Hyponatremia: -Chronic, will place on NSS 80ml/hr. F/E/N/GI: NPO, speech consulted DVT: Lovenox 40mg qAM Code status: DNR/DNI Dispo: Telemetry. (2) Dilantin level too low: (3) Seizure disorder: (4) Type 2 diabetes mellitus: (5) Hypothyroidism: (6) Dyslipidemia: History of Present Illness Chief Complaint: Seizure Primary Care Provider: Ambar Chester Parmar is a 87 year old female with PmHx seizure disorder, T2DM, osteoporosis, hypothyroidism, h/o CVA, dyslipidemia, acid reflux coming in to the hospital from [facility] for aphasia. Patient is not very verbal in exam room only able to say that she has to go to the bathroom in a quiet manner. When asked other questions she states she has to go to the bathroom. History was obtained from the ER physician who states that patient was at [facility] earlier when she was noted to have aphasia which she usually gets when she is in her post-ictal state. When they discovered her like this they sent her via EMS for evaluation. ER physician talked with the daughter who expressed she would be okay with her being observed and that patient is DNR/DNI. In the ER CBC unchanged from patient's baseline, Na 131, otherwise normal CMP, phenytoin level 4.0. Head CT negative for any acute abnormality. Allergies Allergy/AdvReac Type Severity Reaction Status Date / Time levofloxacin [From Levaquin] Allergy Severe Possible Verified 07/09/23 21:07 seizure peanut Allergy Intermediate SNEEZE, Verified 07/09/23 21:07 COUGH allopurinol [From Zyloprim] Allergy Unknown ON CENTRE Verified 07/09/23 21:07 CARE MED LIST lorazepam Allergy Unknown ON CENTRE Verified 07/09/23 21:07 CARE MED LIST nortriptyline Allergy Unknown ON CENTRE Verified 07/09/23 21:07 CARE MED LIST Opioids - Morphine Analogues Allergy Unknown ON CENTRE Verified 07/09/23 21:07 CARE MED LIST Penicillins Allergy Unknown ON CENTRE Verified 07/09/23 21:07 CARE MED LIST Sulfa (Sulfonamide Allergy Unknown ON CENTRE Verified 07/09/23 21:07 Antibiotics) CARE MED LIST risedronate sodium AdvReac Intermediate Intolerence Verified 07/09/23 21:07 [From Actonel] Home Medications Medication Instructions Recorded Confirmed Type cyanocobalamin (vitamin B-12) 1,000 mcg PO DAILY #30 caps 11/16/21 07/09/23 Rx 1,000 mcg capsule diclofenac sodium 1 % topical gel 2 g topical QID Pain 10/16/22 07/09/23 History (Voltaren Arthritis Pain) sodium chloride 1,000 mg soluble 1,000 mg PO BID 10/16/22 07/09/23 History tablet magnesium oxide 400 mg (241.3 mg 400 mg PO BID #30 tabs 10/31/22 07/09/23 Rx magnesium) tablet levetiracetam 1,000 mg tablet 1,000 mg PO BID #180 tabs 12/02/22 07/09/23 Rx acetaminophen 325 mg tablet 650 mg PO Q6H PRN FEVER/PAIN 07/09/23 07/09/23 History levothyroxine 25 mcg tablet 25 mcg PO DAILYBB 07/09/23 07/09/23 History menthol 1.6 mg lozenges (Luden's 1.6 mg PO Q1H PRN THROAT PAIN 07/09/23 07/09/23 History (menthol)) metformin 500 mg tablet 500 mg PO BIDM 07/09/23 07/09/23 History phenytoin sodium extended 100 mg See Rx Instructions .Route .COMPLEX 07/09/23 07/09/23 History capsule (Dilantin Extended) sumatriptan succinate 50 mg tablet 50 mg PO DIRECTED PRN Migraine 07/09/23 07/09/23 History (Imitrex) Headache Past Med/Surg History Medical History Seizure Dilantin toxicity Hyponatremia Idiopathic polyneuropathy B12 deficiency Carpal tunnel syndrome, right Gallstone pancreatitis H/O: CVA (cerebrovascular accident) Type 2 diabetes mellitus History of stroke 20 YRS AGO Hiatal hernia Acid reflux Seizure disorder epilepsy, primary generalized seizure disorder--follows with Dr. 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- taking seizure meds- last seizure beginning of 2019 secondary to low phenytoin level in context of tx of infection- has had no interval seizures- clinically stable- follow up six months Osteoporosis Osteoarthritis Hypothyroidism Dyslipidemia Surgical History S/P endoscopic carpal tunnel release 06/14/2021 Right wrist History of ankle surgery x2--left d/t fracture History of open reduction and internal fixation (ORIF) procedure left wrist--hardware removed History of tooth extraction all top removed/most of bottom History of ERCP (07/29/20) History of right cataract extraction S/P cholecystectomy (07/29/20) H/O: hysterectomy (~1965) History of appendectomy (~1965) History of surgery on left wrist History of colonoscopy Family History Father Hypertension Mother Diabetes Myocardial infarction Brother Diabetes Lung disease Brother Diabetes Brother Diabetes Brother Diabetes Brother Diabetes Other No family history of adverse response to anesthesia Denies family history of Ovarian cancer Prostate cancer Breast cancer Colorectal cancer Social History Smoking Status: Unknown if ever smoked Second Hand Exposure: No; Do You Dip or Chew Tobacco: No; Hx Alcohol Use: No Hx Substance Use: No Preferred Language: Maltese Communication Ability: Effective Communication Ability Comment: pt in postictal stage Visual Impairment: No Limitations Hearing Ability: Hard of Hearing Human Service Specialist Required: No Beliefs That Will Affect Care: None marital status: / Current Living Situation: [facility] Current Living Situation Comment: [facility] current occupational status: retired 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 How many Children do You have: 2 Feels Safe at Home: Yes Childhood Exposure to Second-Hand Smoke: Yes Diet: regular Diet Comment: Patient watches serving sizes and counts carefully Dental Care, Regularly: No Physical Activity Frequency: Daily Seatbelt Use: always Sunscreen Use: Yes (when she goes outside ) Gender Identity: Female Assistive Devices: Wheelchair Review of Systems Review of Systems: As per HPI. Physical Exam Constitutional: WD/WN, vitals as above Eyes: PERRL, conjunctivae normal, anicteric sclerae Respiratory: normal respiratory effort, lungs clear to auscultation Cardiovascular: Rate/Rhythm: regular rhythm and + tachycardic Heart Sounds: normal S1 and normal S2 No edema in the lower extremities. Gastrointestinal (Abdomen): normal bowel sounds, soft, nontender, no hepatosplenomegaly Psychiatric: Patient able to follow commands, only able to express she has to go to the bathroom in a whisiper. Results & Data Results & Data Vital Signs (Past 12 Hours) Vital Signs Temp Pulse Resp BP Pulse Ox O2 Del Method 07/10/23 00:44 99 H 07/10/23 00:00 76 20 144/75 H 93 07/09/23 23:30 85 22 167/63 H 95 07/09/23 23:00 76 21 95 07/09/23 22:30 81 20 95 07/09/23 22:30 115/57 L 07/09/23 22:01 143/54 H 07/09/23 22:01 90 17 94 07/09/23 22:00 76 21 95 07/09/23 21:40 82 20 94 07/09/23 21:36 93/67 L 07/09/23 21:36 92 H 18 95 07/09/23 21:33 92 H 22 95 07/09/23 21:10 100 H 19 07/09/23 21:00 96 H 22 07/09/23 20:54 92 H 07/09/23 20:50 94 H 25 H 07/09/23 20:49 93 H 25 H 96 07/09/23 20:36 36.4 C L 109 H 21 96/68 L 96 Room Air Supervising Physician Co-Signing Physician Notes Patient seen and examined, chart reviewed, case discussed with Dr. Duarte and I agree with the assessment and plan as above Resident Activity Tracking Resident Involvement: Resident Care Provided Care Provided: Adult Hospital Medicine (5) Hypothyroidism Hypothyroidism type: acquired Qualified Code(s): E03.9 - Hypothyroidism, unspecified
[2023-07-10] MEDS ORDERED: ONDANSETRON INJ 2 MG/ML 2 ML VIAL IV PRN (01:25)
[2023-07-10] MEDS: SODIUM CHLORIDE 0.9% 1,000 ML IV SCH ×2 (03:41→16:13)
[2023-07-10 04:30] LABS: Basophils # (auto) 0.04 K/uL (0.00-0.20); Basophils % (auto) 0.6 %; Eosinophils # (auto) 0.19 K/uL (0.00-0.50); Hematocrit (blood only) 33.9 % (37.0-47.0); Hemoglobin 11.4 g/dl (12.0-16.0); Immature Granulocytes # (auto) 0.03 K/uL (0.01-0.20); Immature Granulocytes % (auto) 0.5 %; Lymphocytes # (auto) 1.37 K/uL (1.20-3.40); Lymphocytes % (auto) 21.8 %; Mean Corpuscular Hemoglobin 31.9 pg (25.0-34.0); Mean Corpuscular Hgb Conc 33.6 g/dL (32.0-36.0); Mean Platelet Volume 8.8 fL (9.4-12.4); Monocytes # (auto) 0.43 K/uL (0.11-0.59); Monocytes % (auto) 6.8 %; Neutrophils # (auto) 4.22 K/uL (1.40-6.50); Neutrophils % (auto) 67.3 %; Platelet Count 308 K/uL (130-400); RDW Coefficient of Variation 13.9 % (11.5-14.5); RDW Standard Deviation 48.5 fL (36.4-46.3); Red Blood Count 3.57 M/uL (4.20-5.40); White Blood Count 6.28 K/ul (4.8-10.8)
[2023-07-10 04:45] LABS: BUN Creatinine Ratio 17.8 (10-20); Calcium 8.5 mg/dl (8.6-10.3); Creatinine Clr Calc Pharmacy 90.8 ml/min; Est GFR (African American) 105.9 ml/min; Est GFR (Non-African American) 91.4 ml/min; Magnesium 1.5 mg/dl (1.7-2.4); Potassium 4.2 mmol/L (3.5-5.1)
[2023-07-10] MEDS: ENOXAPARIN INJ 40 MG/0.4 ML SYR SQ SCH (06:09)
--- NOTE | 2023-07-10 07:50 | Hospitalist Progress Note ---
Date of Service July 10, 2023 Assessment & Plan (1) Aphasia: (2) Dilantin level too low: (3) Seizure disorder: (4) Type 2 diabetes mellitus: (5) Hypothyroidism: (6) Dyslipidemia: Plan 87 year old female admitted for aphasia and possible seizure. Aphasia/Dilantin level too low/Seizure disorder: -Patient with history of seizure disorder with aphasic post-ictal state. -Had episode of aphasia 07/09 and brought in from [facility]. -CT head negative. Less likely stroke given known symptom replication of post- ictal state, no focal deficits. -Home Meds: On Phenytoin ER 100mg qAM, 150mg qHS; Patient's phenytoin level low at 4.0 on admission. -Home Meds: Keppra 1,000mg BID. Given IV Keppra 1,000mg in the ER at 9PM. -Speech therapy consulted for evaluation. Hold PO medications for now. -Will continue on IV Keppra 1,000mg BID until cleared to take PO. -Consulted neurology, will appreciate recs. Increase Phenytoin ER: 150 mg, IV, BID/ Maintain IV Keppra, 1000 mg, BID Replete Mg, 2 g, IV, over 2 hrs MRI, w & w/o contrast B12 and TSH ordered, Keppra level pending -Seizure precautions. -Hemodynamically stable. -Admit to telemetry. hypothyroidism: -Holding oral medications, can continue if cleared. T2DM: -Hold oral medications. Monitor BSG q4h while NPO. -5U lantus BID. Hx of stroke/dyslipidemia: -Holding oral medications, once clear can continue home statin. Hyponatremia: -Chronic, will place on NSS 80ml/hr. F/E/N/GI: NPO, speech consulted DVT: Lovenox 40mg qAM Code status: DNR/DNI Dispo: Telemetry. Admission and Anticipated Discharge Date Admission Date: July 10, 2023 Supervising Physician Co-Signing Physician Notes I also saw the patient with the resident physician and confirmed villarreal portions of the clinical history of his examination. I reviewed the emergency department chart and neurology consultation. I agree with the impression and plan as noted in resident documentation above. Upon late morning exam, the patient is awake. She turns to voice. She makes an effort to speak. She does not follow commands. While I did observe her walk around the room, most of the time she has a gaze straight ahead. She was seated/leaning forward in bed upon exam. She did at some point lean back into a more supine position on her own. Impression and plan Epiletpic seizure disorder with history of prolonged post-ictal states vs stroke with global aphasia Appreciate neurology consultation MRI of brain pending PT/OT/ST consults Additional per resident documentation Review of Systems Review of Systems: Unobtainable due to cognitive status Physical Exam 2 Respiratory: no respiratory distress Cardiovascular: RRR, no murmur, no edema Extremities: no pedal edema and no edema Gastrointestinal (Abdomen): normal bowel sounds, soft, nontender, no hepatosplenomegaly Neurologic: normal touch/pain/proprioception and + obtunded; no focal motor deficits Speech / Cognition: + abnormal cognition (global aphasia) Cranial Nerves: PERRL Results & Data Results & Data Vital Signs (Past 12 Hours) Vital Signs Temp Pulse Resp BP Pulse Ox O2 Del Method 07/10/23 07:02 111 H 07/10/23 05:00 72 20 143/95 H 07/10/23 03:20 Room Air 07/10/23 03:00 83 20 152/109 H 98 07/10/23 01:30 92 H 22 169/88 H 93 07/10/23 01:00 90 22 151/119 H 94 07/10/23 00:44 99 H 07/10/23 00:30 71 22 134/69 93 07/10/23 00:00 76 20 144/75 H 93 07/09/23 23:30 85 22 167/63 H 95 07/09/23 23:00 76 21 95 07/09/23 22:30 81 20 95 07/09/23 22:30 115/57 L 07/09/23 22:01 143/54 H 07/09/23 22:01 90 17 94 07/09/23 22:00 76 21 95 07/09/23 21:40 82 20 94 07/09/23 21:36 93/67 L 07/09/23 21:36 92 H 18 95 07/09/23 21:33 92 H 22 95 07/09/23 21:10 100 H 19 07/09/23 21:00 96 H 22 07/09/23 20:54 92 H 07/09/23 20:50 94 H 25 H 07/09/23 20:49 93 H 25 H 96 07/09/23 20:36 36.4 C L 109 H 21 96/68 L 96 Room Air Resident Activity Tracking Resident Involvement: Resident Care Provided Care Provided: Adult Hospital Medicine (5) Hypothyroidism Hypothyroidism type: acquired Qualified Code(s): E03.9 - Hypothyroidism, unspecified
[2023-07-10] MEDS: levETIRAcetam 1,000 MG in 0.9 % SODIUM CHLORIDE 100 ML IV SCH ×2 (09:34→20:57)
--- NOTE | 2023-07-10 10:03 | Neurology Consultation ---
Date of Consultation July 10, 2023 Assessment & Plan (1) Seizure disorder: (2) Acute encephalopathy: (3) Aphasia: Plan This patient has a known history of seizure disorder and post (small) stroke. She is been fairly well controlled on current dose of phenytoin and levetir acetam. She had an event yesterday consistent with either seizure and postictal state of a rather prolonged nature, or she is had a new stroke with global aphasia. She has no other focal findings or deficits that I can see on exam and no meningeal signs. Recommendations: 1. Increase phenytoin to 150 mg twice daily 2. Awaiting levetiracetam level, which will take several days to come back). 3. MRI of the brain with and without contrast and compare to previous 4. Physical, occupational, and speech therapy consult 5. Depending on her clinical course I may consider other testing or treatment. I see no reason for an EEG at this time. 6. If she can not take p.o., levetiracetam can be given IV. Phenytoin can be given IV also although it has to be given very slowly to avoid hypotension and given in normal saline. 7. Replace magnesium and calcium. consider TSH and B12. Overall, I spent a total of 90 minutes with this case including review of records, review of MRI films, direct evaluation the patient at bedside, report generation, and discussing the case with the patient and RN at bedside and Dr. Hill including differential diagnosis and treatment options. History of Present Illness Reason for Consultation: 87-year-old, who I was asked to see the request of Dr. Dr. Duarte, for neurologic consultation regarding acute onset aphasia and known history of seizures. Requesting Physician: Dr. Duarte Attending Physician: Luis Hill MD History of Present Illness This patient has a remote history of a stroke (I have no details regarding this event that happened many years ago). She is had a longstanding seizure disorder since and follows with Dr. Montero as an outpatient. She was last seen in the office in March of this year and was stable with her seizure disorder and idiopathic polyneuropathy. She is at [facility] and is wheelchair-bound. Most recent MRI of the brain was in October of 2022 which showed no acute changes but old small-vessel ischemia. Most recent EEG was in 2015 and showed some generalized spike-wave activity. An EMG in February of 2022 revealed a polyneuropathy of significance. Currently the patient is on levetiracetam 1000 mg twice a day and phenytoin 100 mg in the morning and 150 mg in the evening. In October of 2022 she was Dilantin toxic with a level of 44.3 on a dose of 200 mg twice a day. She had a fall with some closed head trauma. Dilantin was changed to 100 mg twice a day, and by discharge on October 19 it was 21. The next month however she had a seizure and was noted to a level less than 3 (not sure if she was compliant). She was put on 100 mg in the morning and 150 mL at night and has run a fairly low level but has been seizure-free since. Her Dilantin level ranged from 3-6. Apparently the patient was found in a nonverbal state, not following commands well on the evening of July 09. She arrived to the emergency room at 8:36 p.m. with a temperature 36.4, pulse 109, respiratory rate 21, blood pressure 96/68, and O2 saturation 96%. On examination he was not speaking or following commands well but was alert and no one found any focal or other neurologic findings. CBC showed mild anemia and Chem profile was remarkable for sodium of 133 and a glucose of 120. Dilantin level was low at 4.0. Today calcium was 8.5 and magnesium 1.5. Nursing reports no further seizures and unchanged exam since admission. CT scan of the head showed no acute changes. Allergies Allergy/AdvReac Type Severity Reaction Status Date / Time levofloxacin [From Levaquin] Allergy Severe Possible Verified 07/09/23 21:07 seizure peanut Allergy Intermediate SNEEZE, Verified 07/09/23 21:07 COUGH allopurinol [From Zyloprim] Allergy Unknown ON CENTRE Verified 07/09/23 21:07 CARE MED LIST lorazepam Allergy Unknown ON CENTRE Verified 07/09/23 21:07 CARE MED LIST nortriptyline Allergy Unknown ON CENTRE Verified 07/09/23 21:07 CARE MED LIST Opioids - Morphine Analogues Allergy Unknown ON CENTRE Verified 07/09/23 21:07 CARE MED LIST Penicillins Allergy Unknown ON CENTRE Verified 07/09/23 21:07 CARE MED LIST Sulfa (Sulfonamide Allergy Unknown ON CENTRE Verified 07/09/23 21:07 Antibiotics) CARE MED LIST risedronate sodium AdvReac Intermediate Intolerence Verified 07/09/23 21:07 [From Actonel] Home Medications Medication Instructions Recorded Confirmed Type cyanocobalamin (vitamin B-12) 1,000 mcg PO DAILY #30 caps 11/16/21 07/09/23 Rx 1,000 mcg capsule diclofenac sodium 1 % topical gel 2 g topical QID Pain 10/16/22 07/09/23 History (Voltaren Arthritis Pain) sodium chloride 1,000 mg soluble 1,000 mg PO BID 10/16/22 07/09/23 History tablet magnesium oxide 400 mg (241.3 mg 400 mg PO BID #30 tabs 10/31/22 07/09/23 Rx magnesium) tablet levetiracetam 1,000 mg tablet 1,000 mg PO BID #180 tabs 12/02/22 07/09/23 Rx acetaminophen 325 mg tablet 650 mg PO Q6H PRN FEVER/PAIN 07/09/23 07/09/23 History levothyroxine 25 mcg tablet 25 mcg PO DAILYBB 07/09/23 07/09/23 History menthol 1.6 mg lozenges (Luden's 1.6 mg PO Q1H PRN THROAT PAIN 07/09/23 07/09/23 History (menthol)) metformin 500 mg tablet 500 mg PO BIDM 07/09/23 07/09/23 History phenytoin sodium extended 100 mg See Rx Instructions .Route .COMPLEX 07/09/23 07/09/23 History capsule (Dilantin Extended) sumatriptan succinate 50 mg tablet 50 mg PO DIRECTED PRN Migraine 07/09/23 07/09/23 History (Imitrex) Headache Patient History Medical History Seizure Dilantin toxicity Hyponatremia Idiopathic polyneuropathy B12 deficiency Carpal tunnel syndrome, right Gallstone pancreatitis H/O: CVA (cerebrovascular accident) Type 2 diabetes mellitus History of stroke 20 YRS AGO Hiatal hernia Acid reflux Seizure disorder epilepsy, primary generalized seizure disorder--follows with Dr. 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- taking seizure meds- last seizure beginning of 2019 secondary to low phenytoin level in context of tx of infection- has had no interval seizures- clinically stable- follow up six months Osteoporosis Osteoarthritis Hypothyroidism Dyslipidemia Surgical History S/P endoscopic carpal tunnel release 06/14/2021 Right wrist History of ankle surgery x2--left d/t fracture History of open reduction and internal fixation (ORIF) procedure left wrist--hardware removed History of tooth extraction all top removed/most of bottom History of ERCP (07/29/20) History of right cataract extraction S/P cholecystectomy (07/29/20) H/O: hysterectomy (~1965) History of appendectomy (~1965) History of surgery on left wrist History of colonoscopy Family History Father Hypertension Mother Diabetes Myocardial infarction Brother Diabetes Lung disease Brother Diabetes Brother Diabetes Brother Diabetes Brother Diabetes Other No family history of adverse response to anesthesia Denies family history of Ovarian cancer Prostate cancer Breast cancer Colorectal cancer Social History Smoking Status: Unknown if ever smoked Second Hand Exposure: No; Do You Dip or Chew Tobacco: No; Hx Alcohol Use: No Hx Substance Use: No Preferred Language: Yi Communication Ability: Unable Communication Ability Comment: pt in postictal stage Visual Impairment: No Limitations Hearing Ability: Hard of Hearing Paid Search Specialist Required: No Beliefs That Will Affect Care: None marital status: / Current Living Situation: [place] Current Living Situation Comment: [facility] current occupational status: retired 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 How many Children do You have: 2 Feels Safe at Home: Yes Safety Concerns: Feels Safe At This Time Childhood Exposure to Second-Hand Smoke: Yes Diet: regular Diet Comment: Patient watches serving sizes and counts carefully Dental Care, Regularly: No Physical Activity Frequency: Daily Seatbelt Use: always Sunscreen Use: Yes (when she goes outside ) Gender Identity: Female Review of Systems Review of Systems: Unobtainable due to cognitive status Exam (Neuro) Physical Exam: The patient is is sleepy but easily opens her eyes and raises her eyebrows to voice (loud voice). She will look to the right and to the left at the direction of the voice but she will only briefly make eye contact for a 2nd or so then drifts back to midline. She will not speak and did not utter sounds. She will not follow commands but stares off in front of her. Pupils are 4 mm bilaterally and reactive to light. As noted by holding her eyes open (she resists eye opening) and moving her head side to side, extraocular eye muscles are intact without nystagmus. There are no deficits to sensation in the face in all 3 distributions of the fifth cranial nerve bilaterally. Corneal reflexes are positive bilaterally. Facial strength and symmetry was normal bilaterally. Hearing seems decreased bilaterally. Palate moves well without asymmetry. There is normal sternocleidomastoid and trapezius (shoulder shrug) strength bilaterally. Tongue is midline with good strength bilaterally. Neck has a full range of motion without obvious discomfort. There are no cervical bruits bilaterally. There are no cranial or ocular bruits. Heart is without murmur. There is a regular rhythm and rate. Cervical, thoracic, and lumbar spine seem nontender to palpation. Gait is not testable and stance sitting up a little bit seems reasonable. She will not cooperate with holding her arms up, resisting movement, or following commands. She has no resting or other tremor and has reasonable tone in the limbs with symmetry noted. Reflexes are 0/4 in all 4 limbs and toes are downgoing to plantar stimulation bilaterally. She withdraws quickly and grimaces (but does not make noise) to deep pain in all 4 limbs Results & Data Vital Signs (Past 12 Hours) Vital Signs Pulse Resp BP Pulse Ox O2 Del Method 07/10/23 09:28 107 H 20 146/78 H 93 Room Air 07/10/23 07:02 111 H 07/10/23 05:00 72 20 143/95 H 07/10/23 03:20 Room Air 07/10/23 03:00 83 20 152/109 H 98 07/10/23 01:30 92 H 22 169/88 H 93 07/10/23 01:00 90 22 151/119 H 94 07/10/23 00:44 99 H 07/10/23 00:30 71 22 134/69 93 07/10/23 00:00 76 20 144/75 H 93 07/09/23 23:30 85 22 167/63 H 95 07/09/23 23:00 76 21 95 07/09/23 22:30 81 20 95 07/09/23 22:30 115/57 L 11/29/23 22:01 143/54 H 07/09/23 22:01 90 17 94 07/09/23 22:00 76 21 95 PG Care Time/CCT Total # of Minutes Spent Total Time Spent with Patient: Total time spent is greater than 50% in coordination of care (as documented) at patient's floor/unit and/or counseling patient: Coding Level of Care Code 23320 INT INP/OBS CARE 3/75MIN Diagnoses Seizure disorder G40.909 Acute encephalopathy G93.40 Aphasia R47.01 Time Spent (min) 90
--- NOTE | 2023-07-10 14:06 | Electrocardiogram Report ---
Test Reason : Blood Pressure : / mmHG Vent. Rate : 091 BPM Atrial Rate : 091 BPM P-R Int : 100 ms QRS Dur : 086 ms QT Int : 364 ms P-R-T Axes : 064 -18 019 degrees QTc Int : 447 ms Sinus rhythm with short MT Minimal voltage criteria for LVH, may be normal variant Nonspecific ST abnormality Borderline ECG When compared with ECG of 24-JAN-2023 11:06, MT interval has decreased ST no longer depressed in Anterior leads Confirmed by Luis Carranza ([id number]) on 07/10/2023 2:05:47 PM Referred By: [facility] Confirmed By:Winston Carranza
[2023-07-10] MEDS: MAGNESIUM SULFATE / D5W 1 GM/100 ML BAG IV SCH ×2 (16:12→18:27)
[2023-07-10] MEDS ORDERED: GADOBUTROL 65ML VIAL IV ONE (17:17)
--- NOTE | 2023-07-10 19:26 | Magnetic Resonance Report ---
MR brain wo/w con CLINICAL HISTORY: Seizure TECHNIQUE: Multiplanar and multisequence MR images of the brain were obtained prior to and following administration of gadolinium contrast. Comparison: Comparison is made to MRI brain 10/26/2022 FINDINGS: No abnormal restricted diffusion is identified. Foci of T2 and FLAIR hyperintensity are noted in the paraventricular areas consistent with chronic small vessel ischemic disease. Ex vacuo ventriculomegal y and sulcal enlargement is noted compatible with diffuse volume loss. No mass or abnormal enhancemen t is seen. There is no mass effect or midline shift. There is no evidence of acute intraparenchymal h emorrhage. No extra axial fluid collections are seen. The corpus callosum, pituitary gland, and cereb ellar tonsils appear grossly unremarkable. Flow voids of the major intracranial arterial vessels are identified. The imaged portions of the para nasal sinuses, mastoid air cells, and orbits are unremarkable. IMPRESSION: No acute abnormalities. ACT 112: Negative or not required by law. Electronically signed by: Todd Burdick M.D. 07/10/2023 7:24 PM
[2023-07-10] MEDS: ACETAMINOPHEN 1,000 MG/100 ML VIAL IV PRN (20:18)
[2023-07-10] MEDS: PHENYTOIN 150 MG in SYRINGE 0 ML IV SCH (20:51)
[2023-07-10] MEDS: SODIUM CHLORIDE 0.9% 10ML FLUSH IV SCH (20:54)
[2023-07-11] MEDS ORDERED: KETOROLAC TROMETHAMINE 15 MG/ML VIAL IV ONE (01:45)
[2023-07-11] MEDS: SODIUM CHLORIDE 0.9% 1,000 ML IV SCH (01:47)
--- NOTE | 2023-07-11 05:30 | Billing Data ---
Date of Service July 10, 2023 Coding Level of Care Code 88266 INT INP/OBS CARE
[2023-07-11] MEDS: ENOXAPARIN INJ 40 MG/0.4 ML SYR SQ SCH (05:31)
[2023-07-11 06:11] LABS: Basophils # (auto) 0.06 K/uL (0.00-0.20); Basophils % (auto) 0.5 %; Eosinophils # (auto) 0.02 K/uL (0.00-0.50); Eosinophils % (auto) 0.2 %; Hematocrit (blood only) 32.3 % (37.0-47.0); Immature Granulocytes # (auto) 0.06 K/uL (0.01-0.20); Immature Granulocytes % (auto) 0.5 %; Lymphocytes # (auto) 2.04 K/uL (1.20-3.40); Lymphocytes % (auto) 15.3 %; Mean Corpuscular Hemoglobin 31.7 pg (25.0-34.0); Mean Corpuscular Hgb Conc 34.1 g/dL (32.0-36.0); Mean Corpuscular Volume 93.1 fL (80.0-100.0); Mean Platelet Volume 8.6 fL (9.4-12.4); Monocytes # (auto) 0.82 K/uL (0.11-0.59); Monocytes % (auto) 6.2 %; Neutrophils # (auto) 10.33 K/uL (1.40-6.50); Neutrophils % (auto) 77.3 %; Platelet Count 307 K/uL (130-400); RDW Coefficient of Variation 13.9 % (11.5-14.5); RDW Standard Deviation 47.7 fL (36.4-46.3); Red Blood Count 3.47 M/uL (4.20-5.40); White Blood Count 13.33 K/ul (4.8-10.8)
[2023-07-11 06:31] LABS: BUN Creatinine Ratio 23.2 (10-20); Est GFR (African American) 98.5 ml/min; Magnesium 1.8 mg/dl (1.7-2.4); Potassium 3.9 mmol/L (3.5-5.1)
[2023-07-11 06:45] LABS: Thyroid Stimulating Hormone 0.073 uIu/ml (0.300-4.500)
--- NOTE | 2023-07-11 07:43 | Hospitalist Progress Note ---
Date of Service July 11, 2023 Assessment & Plan (1) Postictal state: (2) Altered mental status: (3) Aphasia: (4) Dilantin level too low: (5) Seizure disorder: (6) Type 2 diabetes mellitus: (7) Hypothyroidism: (8) Dyslipidemia: (9) Hypocalcemia: Plan 87 year old female admitted for aphasia, possible seizure, post-ictal confusion. Subsequent to being admitted, patient had fever of unknown origin. Aphasia/Dilantin level too low/Seizure disorder: -Patient with history of seizure disorder with aphasic post-ictal state. -Had episode of aphasia 07/09 and brought in from [facility]. -CT head negative. Less likely stroke given known symptom replication of post- ictal state, no focal deficits. - MRI w/ and w/o contrast: no acute abnormalities noted/ chronic changes indicated ex vacuo ventriculomegaly, evidence of small vessel ischemic changes -Home Meds: On Phenytoin ER 100mg qAM, 150mg qHS; Patient's phenytoin level low at 4.0 on admission. -Home Meds: Keppra 1,000mg BID. -Speech therapy consulted for evaluation. Hold PO medications for now. -Will continue on IV Keppra 1,000mg BID until cleared to take PO. -Consulted neurology, will appreciate recs. Increase Phenytoin ER: 150 mg, IV, BID/ Maintain IV Keppra, 1000 mg, BID Repleted Mg, 2 g, IV, over 2 hrs 07/10/23 --> Mg 1.8 (07/11/23) Ca 8.0, ionized Ca 1.04 --> Ca gluconate given, 2g B12 > 1500 -Seizure precautions/Hemodynamically stable/Admitted to telemetry. - Aphasia resolving Altered mental status/fever of unknown origin - fever of 39.2 C overnight, WBC increased from 6.3 to 13.3 - chest X-Ray ordered, no acute abnormalities seen - UA ordered and pending, blood Cx pending - pt started on ceftriaxone, 1000 mg, IV, q24 hrs hypothyroidism: -Holding oral medications, can continue if cleared. -TSH 0.073 T2DM: -Hold oral medications. Monitor BSG q4h while NPO. -5U lantus BID. Hx of stroke/dyslipidemia: -Holding oral medications, once clear can continue home statin. Hyponatremia: -Chronic, will place on NSS 80ml/hr. F/E/N/GI: NPO, speech consulted DVT: Lovenox 40mg qAM Code status: DNR/DNI Dispo: Telemetry. Admission and Anticipated Discharge Date Admission Date: July 10, 2023 Supervising Physician Co-Signing Physician Notes Attending attestation Pt seen and examined in concert with Dr. Christianson. In agreement with the documented findings as noted in the resident documentation with any exceptions or additions as noted here. Resting comfortably in bed with some delayed cognition without apparent aphasia - responding to repeated query but in an organized fashion. Unknown cognitive baseline. Febrile overnight at 39C rectal temp with increased WBC. Cx drawn but no abx overnight for coverage 2/2 clinical status. On examination, S1/S2 nl RRR no MCG. CTAB. Abd NT/ND BS+ve. CNII-XII grossly intact with difficulty accomplishing specific testing VS: 128/75, 88, 16, 36.7C, 93 RA Data: WBC 13.33, Hgb 11, Na 129, Cr 0.56, UA WNL, BC pending Aphasia with suspicion of post-ictal state in seizure disorder vs. other cause - fever overnight with negative UA, CXR and clinical improvement with unknown cognitive baseline. d/w daughter re: course of post-ictal state. Follow up cultures, monitor for repeat fever before initiation of empiric abx. Neuro consult appreciated. Transition to PO medications where able. Else see resident documentation as noted. Subjective Agata is a 87 year old female with PMHx of seizure disorder, T2DM, osteoporosis, hypothyroidism, h/o CVA, dyslipidemia, acid reflux coming in to the hospital from [facility] for global aphasia. Although not verbal yesterday, today patient was AAO to self and birthdate (but not place, time, or situation); also able to express that she preferred Patricia to Agata. Also, patient was able to follow simple commands (squeeze my fingers, move toes). There was some mild concern that the patient could be exhibiting some left hemineglect but this appears to have resolved. Was able to talk to one of the patient's daughters this afternoon for collateral info. Daughter states this is fourth time this year patient has been h ospitalized after a seizure. After the third time, patient was moved to [facility]. Patient's daughter stated that global aphasia and an obtunded state is common in pt's post-ictal state and that patient's seizures often start out with her staring off into space, becoming unresponsive. Sometimes they progress to tonic-clonic seizures and sometimes they continue as absence-like seizures. Patient noted to have hallucinations in the afternoon in presence of pt's daughter and I, seeing "cords" everywhere and asking us to untangle them according to her direction. Daughter states that patient's baseline is AAO x 4 and that she is tuned into her surroundings, social, and aware. Review of Systems Constitutional: + fever and + fatigue Respiratory: no cough and no dyspnea Neurologic: + headache(s); no paralysis and no loss of sensation Physical Exam Respiratory: no respiratory distress Cardiovascular: RRR, no murmur, no edema Extremities: no pedal edema and no edema Gastrointestinal (Abdomen): normal bowel sounds, soft, nontender, no hepatosplenomegaly Neurologic: normal touch/pain/proprioception and + confused (intermittent confusion); no focal motor deficits Speech / Cognition: + abnormal speech (mild perseveration upon questioning--continued to respond with birthdate) Cranial Nerves: PERRL Psychiatric: Orientation: alert, oriented to person and cooperative; + not oriented to place and + not oriented to time Affect: euthymic affect Results & Data Results & Data Vital Signs (Past 12 Hours) Vital Signs Temp Pulse Pulse Resp BP BP Pulse Ox 07/11/23 06:01 97 H 07/11/23 04:06 37.0 C 72 18 154/73 H 92 07/11/23 01:34 119 H 07/11/23 01:30 07/11/23 01:30 37.8 C H 102 H 20 128/88 97 07/11/23 00:59 39.2 C H 07/11/23 00:30 118 H 26 H 07/11/23 00:30 142/92 H 07/11/23 00:00 151/82 H 07/11/23 00:00 98 H 24 95 07/10/23 23:30 147/77 H 07/10/23 23:30 107 H 24 93 07/10/23 23:01 113 H 24 94 07/10/23 23:01 144/77 H 07/10/23 23:00 112 H 07/10/23 23:00 07/10/23 22:30 141/81 H 07/10/23 22:30 101 H 20 07/10/23 22:00 120 H 19 07/10/23 22:00 148/111 H 07/10/23 21:30 107 H 23 95 07/10/23 21:30 158/90 H 07/10/23 21:00 163/105 H 07/10/23 21:00 102 H 26 H 94 07/10/23 20:30 172/87 H 07/10/23 20:30 103 H 24 94 07/10/23 20:00 170/94 H 07/10/23 20:00 114 H 24 94 07/10/23 20:00 39.4 C H Pulse Ox O2 Del Method O2 Del Method 07/11/23 06:01 07/11/23 04:06 Room Air 07/11/23 01:34 07/11/23 01:30 Room Air 07/11/23 01:30 Room Air 07/11/23 00:59 07/11/23 00:30 07/11/23 00:30 07/11/23 00:00 07/11/23 00:00 07/10/23 23:30 07/10/23 23:30 07/10/23 23:01 07/10/23 23:01 07/10/23 23:00 07/10/23 23:00 94 Room Air 07/10/23 22:30 07/10/23 22:30 07/10/23 22:00 07/10/23 22:00 07/10/23 21:30 07/10/23 21:30 07/10/23 21:00 07/10/23 21:00 07/10/23 20:30 07/10/23 20:30 07/10/23 20:00 07/10/23 20:00 07/10/23 20:00 (2) Altered mental status Altered mental status type: delirium Qualified Code(s): R41.0 - Disorientation, unspecified (7) Hypothyroidism Hypothyroidism type: acquired Qualified Code(s): E03.9 - Hypothyroidism, unspecified
[2023-07-11] MEDS: levETIRAcetam 1,000 MG in 0.9 % SODIUM CHLORIDE 100 ML IV SCH ×2 (07:49→22:30)
--- NOTE | 2023-07-11 08:04 | XRay Report ---
XR chest 1V portable CLINICAL HISTORY: fever TECHNIQUE: Single frontal radiograph of the chest was obtained. Comparison: Comparison is made to chest radiograph 01/27/2023 FINDINGS: No lines and tubes are seen. Calcified aortic knob is seen. Mild atelectasis is seen. No evidence of pleural effusion or pneumothorax. IMPRESSION: No acute chest disease. ACT 112: Negative or not required by law. Electronically signed by: Todd Burdick M.D. 07/11/2023 8:03 AM
[2023-07-11] MEDS: SODIUM CHLORIDE 0.9% 10ML FLUSH IV SCH ×2 (08:08→22:30)
[2023-07-11] MEDS: PHENYTOIN 150 MG in SYRINGE 0 ML IV SCH ×2 (08:08→22:25)
[2023-07-11] MEDS: ACETAMINOPHEN 1,000 MG/100 ML VIAL IV PRN (08:15)
[2023-07-11 12:21] LABS: Appearance Urine Clear (Clear); Bilirubin Urine Negative (Negative); Blood Urine Negative (Negative); Color Urine Orange; Glucose Urine UA Negative (Negative); Ketones Urine Negative (Negative); Leukocyte Esterase Urine Negative (Negative); Nitrite Urine Negative (Negative); Protein Urine Negative (Negative); Specific Gravity Urine 1.009 (1.000-1.030); Urobilinogen Urine Negative (Negative)
[2023-07-11] MEDS ORDERED: STAT IV/IM STA (13:39)
[2023-07-11] MEDS ORDERED: CALCIUM GLUCONATE 10% 1,000 MG in SODIUM CHLOR 0.9% MINI-B 50 ML IV ONE (14:15)
[2023-07-11] MEDS: cefTRIAXone SODIUM 1,000 MG in DEXTROSE 5 % MINI-B 50 ML IV SCH (17:18)
[2023-07-12] MEDS: ENOXAPARIN INJ 40 MG/0.4 ML SYR SQ SCH (05:51)
[2023-07-12 07:05] LABS: Basophils # (auto) 0.05 K/uL (0.00-0.20); Basophils % (auto) 0.5 %; Eosinophils # (auto) 0.05 K/uL (0.00-0.50); Eosinophils % (auto) 0.5 %; Hematocrit (blood only) 30.8 % (37.0-47.0); Hemoglobin 10.5 g/dl (12.0-16.0); Immature Granulocytes # (auto) 0.02 K/uL (0.01-0.20); Immature Granulocytes % (auto) 0.2 %; Lymphocytes # (auto) 2.06 K/uL (1.20-3.40); Lymphocytes % (auto) 21.5 %; Mean Corpuscular Hemoglobin 31.7 pg (25.0-34.0); Mean Corpuscular Hgb Conc 34.1 g/dL (32.0-36.0); Mean Corpuscular Volume 93.1 fL (80.0-100.0); Mean Platelet Volume 9.1 fL (9.4-12.4); Monocytes # (auto) 0.86 K/uL (0.11-0.59); Neutrophils # (auto) 6.52 K/uL (1.40-6.50); Neutrophils % (auto) 68.3 %; Platelet Count 288 K/uL (130-400); RDW Coefficient of Variation 13.6 % (11.5-14.5); RDW Standard Deviation 46.5 fL (36.4-46.3); Red Blood Count 3.31 M/uL (4.20-5.40); White Blood Count 9.56 K/ul (4.8-10.8)
[2023-07-12 07:38] LABS: BUN Creatinine Ratio 23.3 (10-20); Calcium 8.6 mg/dl (8.6-10.3); Creatinine Clr Calc Pharmacy 95.1 ml/min; Est GFR (African American) 107.5 ml/min; Est GFR (Non-African American) 92.7 ml/min; Magnesium 1.7 mg/dl (1.7-2.4); Potassium 3.6 mmol/L (3.5-5.1)
[2023-07-12] MEDS: levETIRAcetam 1,000 MG in 0.9 % SODIUM CHLORIDE 100 ML IV SCH (09:02)
--- NOTE | 2023-07-12 11:48 | Discharge Summary ---
Date of Service July 12, 2023 Admission HPI Per Admitting Provider Agata is a 87 year old female with PmHx seizure disorder, T2DM, osteoporosis, hypothyroidism, h/o CVA, dyslipidemia, acid reflux coming in to the hospital from [facility] for aphasia. Patient is not very verbal in exam room only able to say that she has to go to the bathroom in a quiet manner. When asked other questions she states she has to go to the bathroom. History was obtained from the ER physician who states that patient was at [facility] earlier when she was noted to have aphasia which she usually gets when she is in her post-ictal state. When they discovered her like this they sent her via EMS for evaluation. ER physician talked with the daughter who expressed she would be okay with her being observed and that patient is DNR/DNI. In the ER CBC unchanged from patient's baseline, Na 131, otherwise normal CMP, phenytoin level 4.0. Head CT negative for any acute abnormality. Discharge Data Allergies Allergy/AdvReac Type Severity Reaction Status Date / Time levofloxacin [From Levaquin] Allergy Severe Possible Verified 07/09/23 21:07 seizure peanut Allergy Intermediate SNEEZE, Verified 07/09/23 21:07 COUGH allopurinol [From Zyloprim] Allergy Unknown ON CENTRE Verified 07/09/23 21:07 CARE MED LIST lorazepam Allergy Unknown ON CENTRE Verified 07/09/23 21:07 CARE MED LIST nortriptyline Allergy Unknown ON CENTRE Verified 07/09/23 21:07 CARE MED LIST Opioids - Morphine Analogues Allergy Unknown ON CENTRE Verified 07/09/23 21:07 CARE MED LIST Penicillins Allergy Unknown ON CENTRE Verified 07/09/23 21:07 CARE MED LIST Sulfa (Sulfonamide Allergy Unknown ON CENTRE Verified 07/09/23 21:07 Antibiotics) CARE MED LIST risedronate sodium AdvReac Intermediate Intolerence Verified 07/09/23 21:07 [From Actonel] Consultations 07/10/23 00:44 ED Decision to Admit Stat 07/10/23 01:25 Consult Neurology Routine Ordered Studies 07/09/23 20:46 CT head/brain wo con Stat 07/10/23 10:59 MRI Brain [MR brain wo/w con] Routine Hospital Course (1) Altered mental status: (2) Aphasia: (3) Dilantin level too low: (4) Seizure disorder: (5) Type 2 diabetes mellitus: (6) Hypothyroidism: (7) Dyslipidemia: (8) Hypocalcemia: Plan 87 year old female admitted for aphasia, possible seizure, post-ictal confusion. Subsequent to being admitted, patient had fever of unknown origin. Aphasia/Dilantin level too low/Seizure disorder: -Patient with history of seizure disorder with aphasic post-ictal state. -Had episode of aphasia 07/09 and brought in from [facility]. -CT head negative. Less likely stroke given known symptom replication of post- ictal state, no focal deficits. - MRI w/ and w/o contrast: no acute abnormalities noted/ chronic changes indicated ex vacuo ventriculomegaly, evidence of small vessel ischemic changes -Home Meds: On Phenytoin ER 100mg qAM, 150mg qHS; Patient's phenytoin level low at 4.0 on admission. -Home Meds: Keppra 1,000mg BID. -Speech therapy consulted for evaluation. Hold PO medications for now. -Will continue on IV Keppra 1,000mg BID until cleared to take PO. -Consulted neurology, will appreciate recs. Increase Phenytoin ER: 150 mg, IV, BID/ Maintain IV Keppra, 1000 mg, BID Repleted Mg, 2 g, IV, over 2 hrs 07/10/23 --> Mg 1.8 (07/11/23) Ca 8.0, ionized Ca 1.04 --> Ca gluconate given, 2g B12 > 1500 -Seizure precautions/Hemodynamically stable/Admitted to telemetry. - Aphasia resolving Altered mental status/fever of unknown origin - fever of 39.2 C overnight, WBC increased from 6.3 to 13.3 - chest X-Ray ordered, no acute abnormalities seen - UA ordered and pending, blood Cx pending - pt started on ceftriaxone, 1000 mg, IV, q24 hrs hypothyroidism: -Holding oral medications, can continue if cleared. -TSH 0.073 T2DM: -Hold oral medications. Monitor BSG q4h while NPO. -5U lantus BID. Hx of stroke/dyslipidemia: -Holding oral medications, once clear can continue home statin. Hyponatremia: -Chronic, will place on NSS 80ml/hr. F/E/N/GI: NPO, speech consulted DVT: Lovenox 40mg qAM Code status: DNR/DNI Dispo: Telemetry. Discharge Plan Discharge Items Reason For Visit: APHASIA Follow-up/Referrals: [facility] [Primary Care Provider] - Medications and DC Order Prescriptions: No Action levetiracetam 1,000 mg tablet 1,000 mg PO BID Qty: 180 3RF cyanocobalamin (vitamin B-12) 1,000 mcg capsule 1,000 mcg PO DAILY Qty: 30 0RF sodium chloride 1,000 mg Tablet,Soluble 1,000 mg PO BID diclofenac sodium [Voltaren Arthritis Pain] 1 % gel 2 g topical QID Rx Instructions: APPLY 2 GM. TO POSTERIOR NECK, RIGHT SHOULDER. APPLY 4 GR TO LEFT KNEE. magnesium oxide 400 mg (241.3 mg magnesium) Tablet 400 mg PO BID Qty: 30 0RF sumatriptan succinate [Imitrex] 50 mg Tablet 50 mg PO DIRECTED PRN (Reason: Migraine Headache) Rx Instructions: take 1 tab at onset of headache; if no relief may repeat 1 tab after at least 2 hrs; max = 2 tabs/24 hr Luden's (menthol) 1.6 mg Lozenge 1.6 mg PO Q1H PRN (Reason: THROAT PAIN) Rx Instructions: STARTED 06/26/23 FOR 2 WEEKS. metformin 500 mg tablet 500 mg PO BIDM acetaminophen 325 mg tablet 650 mg PO Q6H MDD 3 GRAMS APAP/24 HOURS PRN (Reason: FEVER/PAIN) phenytoin sodium extended [Dilantin Extended] 100 mg capsule See Rx Instructions .ROUTE .COMPLEX Rx Instructions: BRAND NECESSARYTAKES 100 MG QAM, THEN 150 MG QHS. levothyroxine 25 mcg tablet 25 mcg PO DAILYBB Admission Data Admit Date/Time: 07/10/23 01:04 Attending Provider: Luis Hill Admit Provider: Turner Duarte Primary Care Provider: [facility] Other Providers: Surekha Ch John H.; [facility] Supervising Physician Co-Signing Physician Notes Attending attestation Pt seen and examined in concert with Dr. Christianson. In agreement with the documented findings as noted in the resident documentation with any exceptions or additions as noted here. Resting comfortably in bed with significant improvement in cognition and resolution of hallucination. Older daughter at bedside reports potential h/o hallucinations but overall cognitive slowing is typical for her post-ictal states. On examination, S1/S2 nl RRR no MCG. CTAB. Abd NT/ND BS+ve. CNII-XII grossly intact with less difficulty accomplishing specific testing VS: 156/98, 82, 19, 36.6C, 94 RA Data: WBC 9.56, hgb 10.5, Na 133, Cr 0.43 Aphasia with suspicion of post-ictal state in seizure disorder vs. other cause - rec'd 1 dose ceftriaxone prior to D/C, will complete short course tx for UTI with atypical presentation of post-ictal state, WBC elevation and fever. PT/OT pending. Else see resident documentation as noted. Total attending physician time spent with this patient's care on the day of discharge: 40 min.
[2023-07-12] MEDS ORDERED: ACETAMINOPHEN 325 MG TAB PO PRN (11:53)
[2023-07-12] MEDS: SODIUM CHLORIDE 0.9% 10ML FLUSH IV SCH ×2 (12:03→20:17)
[2023-07-12] MEDS ORDERED: DOCUSATE SODIUM 100 MG CAP PO ONE (13:02)
[2023-07-12] MEDS ORDERED: POLYETHYLENE (MIRALAX) 17 GM PACK PO ONE (13:04)
[2023-07-12] MEDS: cefTRIAXone SODIUM 1,000 MG in DEXTROSE 5 % MINI-B 50 ML IV SCH (16:37)
--- NOTE | 2023-07-12 16:48 | Hospitalist Progress Note ---
Date of Service July 12, 2023 Assessment & Plan (1) Altered mental status: (2) Aphasia: (3) Dilantin level too low: (4) Seizure disorder: (5) Type 2 diabetes mellitus: (6) Hypothyroidism: (7) Dyslipidemia: (8) Hypocalcemia: Plan 87 year old female admitted for aphasia, possible seizure, post-ictal confusion. Subsequent to being admitted, patient had fever of unknown origin. Aphasia/Dilantin level too low/Seizure disorder: -Patient with history of seizure disorder with aphasic post-ictal state. -Had episode of aphasia 07/09 and brought in from [facility]. -CT head negative. Less likely stroke given known symptom replication of post-i ctal state, no focal deficits. - MRI w/ and w/o contrast: no acute abnormalities noted/ chronic changes indicated ex vacuo ventriculomegaly, evidence of small vessel ischemic changes -Home Meds: On Phenytoin ER 100mg qAM, 150mg qHS; Patient's phenytoin level low at 4.0 on admission. -Home Meds: Keppra 1,000mg BID, Keppra level still pending -Speech therapy consulted for evaluation. Medications again all ordered PO -Will continue Keppra 1,000mg BID, PO. -Consulted neurology, will appreciate recs. Increase Phenytoin ER: 150 mg, PO, BID/ Maintain PO Keppra, 1000 mg, BID Repleted Mg, 2 g, IV, over 2 hrs 07/10/23 --> Mg 1.7 (07/12/23) Ca 8.0, ionized Ca 1.04 --> Ca gluconate given, 2g --> Ca 8.6 (07.12.23) B12 > 1500 -Seizure precautions/Hemodynamically stable/Admitted to telemetry. - Aphasia resolved Altered mental status/fever of unknown origin - fever of 39.2 C on 07/10/23, WBC increased 9.6 <-- 13.3 <-- 6.3 - chest X-Ray ordered, no acute abnormalities seen - UA ordered and results negative, blood Cx pending, no growth after 24 hrs - pt started on ceftriaxone, 1000 mg, IV, q24 hrs hypothyroidism -Holding oral medications, can continue if cleared. -TSH 0.073 mild anemia - Hbg 10.5 <-- 11.0 <-- 11.4 - likely due to hemodilution 2/2 IV fluid intake - trend CBC T2DM: -Hold oral medications. Monitor BSG q4h while NPO. -5U lantus BID. Hx of stroke/dyslipidemia: -Holding oral medications, once clear can continue home statin. Hyponatremia: -Chronic, will place on NSS 80ml/hr. F/E/N/GI: NPO, speech consulted DVT: Lovenox 40mg qAM Code status: DNR/DNI Dispo: Telemetry. Admission and Anticipated Discharge Date Admission Date: July 10, 2023 Supervising Physician Co-Signing Physician Notes Attending attestation Pt seen and examined in concert with Dr. Christianson. In agreement with the documented findings as noted in the resident documentation with any exceptions or additions as noted here. Resting comfortably in bed with significant improvement in cognition and resolution of hallucination. Older daughter at bedside reports potential h/o h allucinations but overall cognitive slowing is typical for her post-ictal states. On examination, S1/S2 nl RRR no MCG. CTAB. Abd NT/ND BS+ve. CNII-XII grossly intact with less difficulty accomplishing specific testing VS: 156/98, 82, 19, 36.6C, 94 RA Data: WBC 9.56, hgb 10.5, Na 133, Cr 0.43 Aphasia with suspicion of post-ictal state in seizure disorder vs. other cause - rec'd 2 doses ceftriaxone prior to D/C, will complete short course tx for UTI with atypical presentation of post-ictal state, WBC elevation and fever. PT/OT pending. Else see resident documentation as noted. Subjective Agata is a 87 year old female with PMHx of seizure disorder, T2DM, osteoporosis, hypothyroidism, h/o CVA, dyslipidemia, acid reflux coming in to the hospital from [facility] for global aphasia. Although not verbal yesterday, today patient was AAO to self and birthdate (but not place, time, or situation); also able to express that she preferred Patricia to Agata. Also, patient was able to follow simple commands (squeeze my fingers, move toes). There was some mild concern that the patient could be exhibiting some left hemineglect but this appears to have resolved. Talked to two of the patient's daughters this afternoon for collateral info. Both eventually agreed that the confusion and hallucinations that patient was experiencing is not typical of pt's post-ictal recovery state/timeline. Both agreed that patient's baseline is AAO x 4 and that she is tuned into her surroundings, social, and aware. Review of Systems Review of Systems: As per HPI. Constitutional: + fever and + fatigue Respiratory: no cough and no dyspnea Cardiovascular: no chest pain and no palpitations Gastrointestinal: + constipation; no abdominal pain, no na usea, no vomiting and no diarrhea/loose stools Genitourinary: no dysuria and no urinary frequency Neurologic: + headache(s); no paralysis and no loss of sensation Psychiatric: no confusion and no hallucinations Physical Exam Constitutional: WD/WN, vitals as above Eyes: PERRL, conjunctivae normal, anicteric sclerae Respiratory: no respiratory distress Cardiovascular: RRR, no murmur, no edema Extremities: no pedal edema and no edema Gastrointestinal (Abdomen): normal bowel sounds, soft, nontender, no hepatosplenomegaly Neurologic: normal touch/pain/proprioception, + confused (intermittent confusion) and + obtunded; no focal motor deficits Speech / Cognition: normal speech Cranial Nerves: PERRL Psychiatric: Orientation: alert, oriented to person and cooperative; + not oriented to place and + not oriented to time Affect: euthymic affect Genitourinary: normal external appearance; no CVA tenderness Results & Data Results & Data Vital Signs (Past 12 Hours) Vital Signs Temp Pulse Pulse Resp BP Pulse Ox O2 Del Method 07/12/23 15:41 81 07/12/23 14:58 36.6 C 82 19 156/98 H 94 Room Air 07/12/23 11:41 36.9 C 79 14 153/74 H 93 Room Air 07/12/23 09:00 95 H 07/12/23 07:32 36.9 C 111 H 14 150/77 H 92 Room Air Resident Activity Tracking Resident Involvement: Resident Care Provided Care Provided: Adult Hospital Medicine (1) Altered mental status Altered mental status type: delirium Qualified Code(s): R41.0 - Disorientation, unspecified (6) Hypothyroidism Hypothyroidism type: acquired Qualified Code(s): E03.9 - Hypothyroidism, unspecified
[2023-07-12] MEDS: PHENYTOIN 150 MG in SYRINGE 0 ML IV SCH (17:22)
[2023-07-12] MEDS: PHENYTOIN SODIUM ER 30 MG CAP PO SCH (20:16)
[2023-07-12] MEDS: levETIRAcetam 500 MG TAB PO SCH (20:16)
[2023-07-12] MEDS: POLYETHYLENE (MIRALAX) 17 GM PACK PO SCH (20:17)
[2023-07-12] MEDS ORDERED: PHENYTOIN 100 MG/4 ML UDP PO SCH (21:00)
[2023-07-13] MEDS: ENOXAPARIN INJ 40 MG/0.4 ML SYR SQ SCH (06:06)
[2023-07-13 07:15] LABS: Est GFR (African American) 104.4 ml/min; Est GFR (Non-African American) 90.1 ml/min
--- NOTE | 2023-07-13 07:30 | Discharge Summary ---
Date of Service July 13, 2023 Admission Exam Per Admitting Provider Physical Exam Constitutional: WD/WN, vitals as above Eyes: PERRL, conjunctivae normal, anicteric sclerae Respiratory: normal respiratory effort, lungs clear to auscultation Cardiovascular: Rate/Rhythm: regular rhythm and + tachycardic Heart Sounds: normal S1 and normal S2 No edema in the lower extremities. Gastrointestinal (Abdomen): normal bowel sounds, soft, nontender, no hepatosplenomegaly Psychiatric: Patient able to follow commands, only able to express she has to go to the bathroom in a whisiper. Principal Diagnosis Post-ictal confusion/state, metabolic encephalopathy Discharge Exam Constitutional WD/WN, vitals as above Eyes PERRL, conjunctivae normal, anicteric sclerae Respiratory no respiratory distress Cardiovascular RRR, no murmur, no edema Extremities: no pedal edema and no edema Gastrointestinal (Abdomen) Inspection/Auscultation: abdomen normal to inspection and normal bowel sounds Percussion/Palpation: + abdomen tender and abdomen soft Neurologic normal touch/pain/proprioception and + confused (intermittent confusion); no focal motor deficits Speech / Cognition: + abnormal cognition (global aphasia); normal speech Cranial Nerves: PERRL Psychiatric Orientation: alert, oriented x 3 and cooperative Affect: euthymic affect Discharge Data Allergies Allergy/AdvReac Type Severity Reaction Status Date / Time levofloxacin [From Levaquin] Allergy Severe Possible Verified 07/09/23 21:07 seizure peanut Allergy Intermediate SNEEZE, Verified 07/09/23 21:07 COUGH allopurinol [From Zyloprim] Allergy Unknown ON CENTRE Verified 07/09/23 21:07 CARE MED LIST lorazepam Allergy Unknown ON CENTRE Verified 07/09/23 21:07 CARE MED LIST nortriptyline Allergy Unknown ON CENTRE Verified 07/09/23 21:07 CARE MED LIST Opioids - Morphine Analogues Allergy Unknown ON CENTRE Verified 07/09/23 21:07 CARE MED LIST Penicillins Allergy Unknown ON CENTRE Verified 07/09/23 21:07 CARE MED LIST Sulfa (Sulfonamide Allergy Unknown ON CENTRE Verified 07/09/23 21:07 Antibiotics) CARE MED LIST risedronate sodium AdvReac Intermediate Intolerence Verified 07/09/23 21:07 [From Actonel] Consultations 07/10/23 00:44 ED Decision to Admit Stat 07/10/23 01:25 Consult Neurology Routine Ordered Studies 07/09/23 20:46 CT head/brain wo con Stat 07/10/23 10:59 MRI Brain [MR brain wo/w con] Routine Hospital Course (1) Postictal state: (2) Altered mental status: (3) Aphasia: (4) Dilantin level too low: (5) Seizure disorder: (6) Type 2 diabetes mellitus: (7) Hypothyroidism: (8) Dyslipidemia: (9) Hypocalcemia: Plan Post-ictal state/Aphasia/Dilantin level too low/Seizure disorder: -Patient with history of seizure disorder with aphasic post-ictal state. -Had episode of aphasia 07/09 and brought in from [facility]. -CT head negative. Less likely stroke given known symptom replication of post- ictal state, no focal deficits. - MRI w/ and w/o contrast: no acute abnormalities noted/ chronic changes indicated ex vacuo ventriculomegaly, evidence of small vessel ischemic changes -Home Meds: On Phenytoin ER 100mg qAM, 150mg qHS; Patient's phenytoin level low at 4.0 on admission. -Home Meds: Keppra 1,000mg BID, Keppra level normal, 44.1 (6-46) -Seizure precautions/Hemodynamically stable/Admitted to telemetry. -Speech therapy consulted for evaluation x 2, no restrictions following 2nd eval: Medications again all ordered PO -Consulted neurology, appreciated recommendations: Increase Phenytoin ER: 150 mg, PO, BID/ Maintain PO Keppra, 1000 mg, BID Repleted Mg, 2 g, IV, over 2 hrs 07/10/23 --> Mg 1.7 (07/12/23) Ca 8.0, ionized Ca 1.04 --> Ca gluconate given, 2g --> Ca 8.5 (07.13.23) B12 > 1500 - F/U with both PCP and neurologist - Aphasia resolved Altered mental status/fever of unknown origin - fever of 39.2 C (07.10.23), nml since; WBC increased 9.6 <-- 13.3 <-- 6.3, hallucinations observed 07.11.23 --> have resolved - chest X-Ray ordered, no acute abnormalities seen - UA ordered and results negative, blood Cx, no growth after 48 hrs - pt started on ceftriaxone, 1000 mg, IV, q24 hrs, last dose today before d/c hypothyroidism -Holding oral medications, can continue if cleared. -TSH 0.073 mild anemia - Hgb 10.9 <-- 11.0 <-- 11.4 - likely due to hemodilution 2/2 IV fluid intake - trend CBC T2DM -Hold oral medications. Monitor BSG q4h while NPO. -5U lantus BID. Hx of stroke/dyslipidemia: -Holding oral medications, once clear can continue home statin. Hyponatremia: -Chronic, will place on NSS 80ml/hr. Total Time Total Time Spent Total Time Spent (In Minutes): see attending attestation Discharge Plan Discharge Items Patient Disposition: Home - Self-Care Reason For Visit: APHASIA Discharge Diagnosis: Altered mental status, aphasia, post-ictal seizure period Activity: Resume your previous activity Non-emergency contact: Primary Care Provider Call non-emergency contact if: you have any medication questions and you have a fever Follow-up/Referrals: [facility] [Primary Care Provider] - Diet: Carb Consistent or DM2 Addtl Attending Provider Instructions: You were admitted to the hospital for [_]. You were treated with [_]. A discharge summary will be sent to your primary care physician to ensure continuity of care. Please bring this discharge summary with you to your next office appointment so that your provider can review it at that time. Follow-up appointments: We have requested a follow-up appointment with your primary care physician within one week of discharge. Please call their office if you do not hear from them. Please also follow up with your neurologist. Keep all your follow-up appointments as already scheduled. If you cannot make an appointment, notify your provider. Medications: Your medication list has been reviewed and reconciled upon discharge to ensure accuracy and continuity of care. An updated list of all your medications is included with your hospital discharge paperwork. Please review this list closely, and make note of any changes. We sent a new medication called phenytoin to your pharmacy. Take phenytoin 100 mg, daily every day and follow up with your neurologist. Take your medications as instructed; do not skip a dose of your medicines. Make sure all of your doctors know every medicine you are taking (including sryw-ymh-vddfomr medicines, vitamins, and supplements). Call your primary care provider before taking any new medicines (including eezr-ycl-mjpafym medicines, vitamins, and supplements), because some of these may interact with your current medications, or may make your symptoms worse. Tell your primary care provider if you cannot afford your medications. CONTACT YOUR PRIMARY CARE PROVIDER if you experience any of the following: fevers, chills confusion, sedation, recurrent aphasia Difficulty following your treatment plan, or difficulty taking medications CALL 911 OR GO TO THE EMERGENCY DEPARTMENT if you experience any of the following: Sudden, severe abdominal pain or nausea/vomiting Severe chest pain, or chest pain that radiates (moves) to your jaw or arm Sudden, severe shortness of breath or difficulty breathing Thank you for allowing us to participate in your care Pending Studies at Discharge: No Stand-Alone Forms: My [facility] App, Smoking Cessation Medications and DC Order Prescriptions: New phenytoin sodium extended 30 mg capsule 150 mg PO BID Qty: 300 0RF Continued levetiracetam 1,000 mg tablet 1,000 mg PO BID Qty: 180 3RF cyanocobalamin (vitamin B-12) 1,000 mcg capsule 1,000 mcg PO DAILY Qty: 30 0RF sodium chloride 1,000 mg Tablet,Soluble 1,000 mg PO BID diclofenac sodium [Voltaren Arthritis Pain] 1 % gel 2 g topical QID Rx Instructions: APPLY 2 GM. TO POSTERIOR NECK, RIGHT SHOULDER. APPLY 4 GR TO LEFT KNEE. magnesium oxide 400 mg (241.3 mg magnesium) Tablet 400 mg PO BID Qty: 30 0RF sumatriptan succinate [Imitrex] 50 mg Tablet 50 mg PO DIRECTED PRN (Reason: Migraine Headache) Rx Instructions: take 1 tab at onset of headache; if no relief may repeat 1 tab after at least 2 hrs; max = 2 tabs/24 hr Luden's (menthol) 1.6 mg Lozenge 1.6 mg PO Q1H PRN (Reason: THROAT PAIN) Rx Instructions: STARTED 06/26/23 FOR 2 WEEKS. metformin 500 mg tablet 500 mg PO BIDM acetaminophen 325 mg tablet 650 mg PO Q6H MDD 3 GRAMS APAP/24 HOURS PRN (Reason: FEVER/PAIN) levothyroxine 25 mcg tablet 25 mcg PO DAILYBB Discontinued phenytoin sodium extended [Dilantin Extended] 100 mg capsule See Rx Instructions .ROUTE .COMPLEX Rx Instructions: BRAND NECESSARYTAKES 100 MG QAM, THEN 150 MG QHS. Discharge Orders: Discharge Order (Routine); Ordered 07/13/23 Ordered By: Luis Christianson Admission Data Admit Date/Time: 07/10/23 01:04 Attending Provider: Luis Hill Admit Provider: Turner Duarte Primary Care Provider: [facility] Other Providers: Surekha Ch; Santiago Hall; [facility] Supervising Physician Co-Signing Physician Notes Attending attestation Pt seen and examined in concert with Dr. Christianson. In agreement with the documented findings as noted in the resident documentation with any exceptions or additions as noted here. Return to reported baseline per patient and daughter yesterday. Still having some abdominal fullness without suprapubic pain or other urinary symptoms. On examination, S1/S2 nl RRR no MCG. CTAB. Abd NT/ND BS+ve Post-ictal state s/p seizure - per family, these can take days to resolve and usually entail both aphasia, confusion, and depressive type symptoms over the course of resolution. Hallucinations may or may not have occurred previously, though has had some on day 2 this admission. UA has not been indicative of UTI, but with fever and WBC, was treated w/ 3 days of ceftriaxone. Else see resident documentation as noted. Total attending physician time spent with this patient's care on the day of discharge: 40 minutes. Resident Activity Tracking Resident Involvement: Resident Care Provided Care Provided: Adult Hospital Medicine
[2023-07-13 07:52] LABS: Calcium 8.5 mg/dl (8.6-10.3); Potassium 3.5 mmol/L (3.5-5.1)
[2023-07-13 07:54] LABS: Basophils # (auto) 0.04 K/uL (0.00-0.20); Basophils % (auto) 0.4 %; Eosinophils # (auto) 0.17 K/uL (0.00-0.50); Eosinophils % (auto) 1.7 %; Hematocrit (blood only) 32.5 % (37.0-47.0); Hemoglobin 10.9 g/dl (12.0-16.0); Immature Granulocytes # (auto) 0.04 K/uL (0.01-0.20); Immature Granulocytes % (auto) 0.4 %; Lymphocytes # (auto) 1.81 K/uL (1.20-3.40); Lymphocytes % (auto) 18.6 %; Mean Corpuscular Hemoglobin 31.3 pg (25.0-34.0); Mean Corpuscular Hgb Conc 33.5 g/dL (32.0-36.0); Mean Corpuscular Volume 93.4 fL (80.0-100.0); Mean Platelet Volume 9.6 fL (9.4-12.4); Monocytes # (auto) 0.76 K/uL (0.11-0.59); Monocytes % (auto) 7.8 %; Neutrophils % (auto) 71.1 %; Platelet Count 302 K/uL (130-400); RDW Coefficient of Variation 13.7 % (11.5-14.5); RDW Standard Deviation 46.6 fL (36.4-46.3); Red Blood Count 3.48 M/uL (4.20-5.40); White Blood Count 9.72 K/ul (4.8-10.8)
[2023-07-13] MEDS: PHENYTOIN SODIUM ER 30 MG CAP PO SCH (08:44)
[2023-07-13] MEDS: levETIRAcetam 500 MG TAB PO SCH (08:44)
[2023-07-13] MEDS: SODIUM CHLORIDE 0.9% 10ML FLUSH IV SCH (08:44)
[2023-07-13] MEDS: POLYETHYLENE (MIRALAX) 17 GM PACK PO SCH (08:44)
--- NOTE | 2023-07-18 09:03 | Coding Query ---
CODING QUERY To promote full compliance with coding requirements relating to patient care, provider participation is requested in all cases of tax compliance agent uncertainty. Please assist us with the question(s) below: Coding Question(s): There is documentation on Progress Note 07/11 of, "fever overnight with negative UA, CXR and clinical improvement with unknown cognitive baseline. d/w daughter re: course of post-ictal state. Follow up cultures, monitor for repeat fever before initiation of empiric abx", and documentation on Progress Note 07/12 of, "will complete short course tx for UTI with atypical presentation of post-ictal state, WBC elevation and fever", and on Discharge Summary, "UA has not been indicative of UTI, but with fever and WBC, was treated w/ 3 days of ceftriaxone". Please specify below, in your clinical opinion, regarding possible UTI: ( ) Possible UTI was treated. Please specify below, in your clinical opinion, regarding POA of possible UTI: ( ) likely present on admission ( ) not present on admission ( ) unable to determine poa (x ) Possible UTI is Ruled-Out Physician's Response(s): Thank you Alcira Wood Principal Diagnosis: "that condition established after study, to be chiefly responsible for occasioning the admission of the patient to the hospital for care." Co-Existing Principal Diagnosis: "when two or more diagnoses equally meet the criteria for principal diagnosis as determined by the circumstances of admission, diagnostic work up, and/or therapy provided, and the Alphabetic Index, Tabular List, or another coding guideline does not provide sequencing direction, any one of the diagnoses may be sequenced first." "When the physician has documented what appears to be a current diagnosis in the body of the record, but has not included the diagnosis in the final diagnostic statement, the physician should be asked whether the diagnosis should be added." (Source [facility]oding [facility] 2 QTR90. p3-4) QUANG
--- NOTE | 2023-07-18 09:09 | Coding Query ---
CODING QUERY To promote full compliance with coding requirements relating to patient care, provider participation is requested in all cases of printed circuit board panels deburrer uncertainty. Please assist us with the question(s) below: Coding Question(s): There is documentation, as on Progress Note 07/10 of, "CT head negative. 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 Less likely stroke given known symptom replication of post-ictal state, no focal deficits". Please specify below, in your clinical opinion, regarding possible new stroke: ( ) Possible New Stroke (x) Possible New Stroke was Ruled-Out Physician's Response(s): Thank you Alcira Wood Principal Diagnosis: "that condition established after study, to be chiefly responsible for occasioning the admission of the patient to the hospital for care." Co-Existing Principal Diagnosis: "when two or more diagnoses equally meet the criteria for principal diagnosis as determined by the circumstances of admission, diagnostic work up, and/or therapy provided, and the Alphabetic Index, Tabular List, or another coding guideline does not provide sequencing direction, any one of the diagnoses may be sequenced first." "When the physician has documented what appears to be a current diagnosis in the body of the record, but has not included the diagnosis in the final diagnostic statement, the physician should be asked whether the diagnosis should be added." (Source Coding [facility] 2 QTR90. p3-4) QUANG
--- NOTE | 2023-07-18 09:12 | Coding Query ---
PRESENT ON ADMISSION QUERY To promote full compliance with coding requirements relating to pateint care, physician participation is requested in all cases of food and nutrition services assistant uncertainty. Please assist us with the question(s) below: Please place an X within the parenthesis (x). The following diagnosis listed in this patient's medical record require physician assistance to determine if they were present on admission (POA) or not. Please advise for each diagnosis whether it was present on admission, not present on admission, or if it was clinically undetermined. 1. Metabolic Encephalopathy (documented on Discharge Summary) ( ) Present On Admission ( ) Not Present On Admission (x ) Clinically Undetermined Please also specify below, the cause(s) of the Metabolic Encephalopathy, in your clinical opinion: ( ) Possible UTI ( x) Post-ictal state from Seizure ( ) Other: Please Specify Thank you Alcira Wood *Definition of the present on admission (POA)-Present on admission is defined as present at the time the order for inpatient admission occurs. Conditions that develop during an outpatient encounter prior to a written order for inpatient admission (including emergency department, observation, or outpatient surgery) are considered present on admission. MTDD
== END 2023-07-13 16:36 | DRG 101 ==
LOC: ED 20:23 → EDINP 07-10 01:04 → SUATTDRO 07-10 01:04 → 2N 07-11 01:25

== ENCOUNTER 2024-08-21 14:03 | Inpatient (IN) ==
--- NOTE | 2024-08-21 14:29 | Emergency Department Note ---
Impression & Plan Altered mental status, Acute urinary retention, Acute dehydration, Failure of outpatient treatment ED Provider Note NAME: CARMEN SINHA AGE: 88 SEX: F : 1935 ARRIVES VIA: Ambulance INFORMANT: [ems, nursing] ED PROVIDER(S): [Connor Kong MD] CHIEF COMPLAINT: Illness HISTORY OF PRESENT ILLNESS: The patient is an 88-year-old female who is a DNR. She resides at [facility]. The patient was here 2 days ago and diagnosed with an L3 fracture and UTI. She is currently on Keflex orally. The patient was sent today because of potential short-lived seizures. She does have a seizure history. The patient can provide no history to us, she is basically nonverbal, not answering questions. No reported fever, no cough or congestion reported. PMHx/PSHx/Social Hx: See Below PHYSICAL EXAM: GENERAL: Patient is in no acute distress. HEENT: No acute trauma, normocephalic atraumatic, mucous membranes dry, no nasal congestion. NECK: No stridor, no adenopathy, no meningismus, trachea is midline. LUNGS: Clear to auscultation bilaterally when listening anterior, no wheeze, no rhonchi, breath sounds equal. No respiratory distress. HEART: Without murmurs gallops or rubs, regular rate and rhythm. ABDOMEN: Soft, no significant distention. No peritonitis. Mildly tender in the area of the bladder. EXTREMITIES: No cyanosis, full range of motion of all the joints without pain or difficulty. NEUROLOGIC: Awake, poor historian, seen to move all extremities. SKIN: No jaundice, no diaphoresis. DIFFERENTIAL DIAGNOSIS: Dehydration, electrolyte imbalance, UTI, seizure, dysrhythmia, among others. EMERGENCY DEPARTMENT PROCEDURES: MEDICAL DECISION MAKING: There is no leukocytosis or concerning anemia. There is a normal platelet count. No renal failure. Magnesium somewhat low at 1.6. No concerning liver enzyme elevation. Patient appears to be in a euthyroid state. ECG shows a normal sinus rhythm, no ischemia or dysrhythmia. Cardiac enzyme testing x 1 is not consistent with acute cardiac injury. Urinalysis does suggest dehydration, no obvious infection. Dilantin and Keppra levels are pending. Respiratory bio fire was negative. Chest x-ray shows some chronic change, no focal pneumonia. Brain CT showed no acute bleed or mass effect. As per nursing staff, the patient was retaining urine, she drained 700 cc on a bedside cath. On exam, the patient was awake, her vital signs were stable, she was not verbally interactive. The patient received IV ceftriaxone as antibiotic coverage. She was given IV Keppra 1000 mg. She was given IV magnesium and IV saline. The cause for her mental decline is unclear. Possibly, she is still having difficulty because of the UTI. Looking back on the urinalysis sample from a few days ago, infection did seem likely. Today, the urinalysis is clear and she may of course just be partially treated. Dehydration is a consideration. Postictal state is a consideration. For now, given the change in mental status and her current exam findings, I do think a hospital stay is warranted. Of note, a Arnold catheter was placed to prevent further urinary retention. I spoke with the patient and her family, I spoke with the director case management. The on- call hospitalist was consulted. Prior/Outside records/notes reviewed: Today's EMS notes describing her presentation and transport to this hospital. ECG per my interpretation: Indication was weakness. ECG shows a normal sinus rhythm with a rate of 99. There is some nonspecific ST change. There is no acute ST elevation. There is poor R wave progression. QTc was 469. Continuous Cardiac Monitoring per my interpretation: An order was placed for continuous cardiac monitoring. The monitor shows a rate of 97 with normal sinus rhythm. Imaging/x-ray results per my interpretation: Chest x-ray shows some chronic change and mild cardiomegaly. No focal infiltrate or CHF. Chronic Medical/Social conditions affecting care: Advanced age, history of dementia. Care/Management discussed with: Case management, the on-call hospitalist. Level of care consideration(s): After review of the information above and other included data: --I believe the patient requires escalation of care to admission DISPOSITION: Admission Past Med/Surg History Problem List Failure of outpatient treatment (Acute) Acute dehydration (Acute) Acute urinary retention (Acute) Altered mental status (Acute) Acute UTI (urinary tract infection) (Acute) Fracture of lumbar spine (Acute) Bloating Nausea Epigastric abdominal pain Dysphagia Migraine without aura, not intractable, without status migrainosus Hypocalcemia Seizure (Acute) Aphasia Hypophosphatemia Hypomagnesemia Hypokalemia Acute encephalopathy Dilantin level too low (Acute) Anemia (Acute) Altered mental status (Acute) AMS (altered mental status) (Acute) CHI (closed head injury) (Acute) Fall (Acute) Idiopathic polyneuropathy (Chronic) B12 deficiency (Chronic) Type 2 diabetes mellitus (Chronic) Hiatal hernia (Chronic) Acid reflux (Chronic) Seizure disorder (Chronic) epilepsy, primary generalized seizure disorder--follows with Dr. 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- taking seizure meds- last seizure beginning of 2019 secondary to low phenytoin level in context of tx of infection- has had no interval seizures- clinically stable- follow up six months Osteoporosis (Chronic) Osteoarthritis (Chronic) Hypothyroidism (Chronic) Dyslipidemia (Chronic) Medical History [facility] pt is [facility] Aphasia History of dysphagia Cognitive communication deficit History of COVID-19 Other abnormalities of gait and mobility History of closed head injury History of anemia Hx of encephalopathy Hx of hypokalemia Idiopathic polyneuropathy Type 2 diabetes mellitus Hiatal hernia with GERD without esophagitis Osteoporosis Osteoarthritis Hypothyroidism Dyslipidemia Seizure epilepsy, primary generalized seizure disorder--follows with Dr. 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- taking seizure meds- last seizure beginning of 2019 secondary to low phenytoin level in context of tx of infection- has had no interval seizures- clinically stable- follow up six months Hyponatremia hx Gallstone pancreatitis hx History of stroke 20 YRS AGO Surgical History S/P endoscopic carpal tunnel release 06/14/2021 Right wrist History of ankle surgery x2--left d/t fracture History of open reduction and internal fixation (ORIF) procedure left wrist--hardware removed History of tooth extraction all top removed/most of bottom History of ERCP (07/29/20) History of right cataract extraction S/P cholecystectomy (07/29/20) H/O: hysterectomy (~1965) History of appendectomy (~1965) History of surgery on left wrist History of colonoscopy Family History Father Hypertension Mother Diabetes Myocardial infarction Brother Diabetes Lung disease Brother Diabetes Brother Diabetes Brother Diabetes Brother Diabetes Other No family history of adverse response to anesthesia Denies family history of Ovarian cancer Prostate cancer Breast cancer Colorectal cancer Social History Smoking Status: Unknown if ever smoked Second Hand Exposure: No; Do You Dip or Chew Tobacco: No; Hx Alcohol Use: No Hx Substance Use: No Preferred Language: Polish Communication Ability: Impaired Communication Ability Comment: cognitive communication deficit Visual Impairment: No Limitations Hearing Ability: Hard of Hearing Claim Approver Required: No Beliefs That Will Affect Care: None marital status: / Current Living Situation: [facility] Current Living Situation Comment: [facility] current occupational status: retired 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 How many Children do You have: 2 Feels Safe at Home: Yes Childhood Exposure to Second-Hand Smoke: Yes Diet: regular Diet Comment: Patient watches serving sizes and counts carefully Dental Care, Regularly: No Physical Activity Frequency: Daily Seatbelt Use: always Sunscreen Use: Yes (when she goes outside ) Gender Identity: Female Assistive Devices: Wheelchair Allergies Allergies Allergy/AdvReac Type Severity Reaction Status Date / Time levofloxacin [From Levaquin] Allergy Severe Possible Verified 04/26/24 08:40 seizure peanut Allergy Intermediate SNEEZE, Verified 04/26/24 08:40 COUGH allopurinol [From Zyloprim] Allergy Unknown ON CENTRE Verified 04/26/24 08:40 CARE MED LIST lorazepam Allergy Unknown ON CENTRE Verified 04/26/24 08:40 CARE MED LIST nortriptyline Allergy Unknown ON CENTRE Verified 04/26/24 08:40 CARE MED LIST Opioids - Morphine Analogues Allergy Unknown ON CENTRE Verified 04/26/24 08:40 CARE MED LIST Penicillins Allergy Unknown ON CENTRE Verified 04/26/24 08:40 CARE MED LIST Sulfa (Sulfonamide Allergy Unknown ON CENTRE Verified 04/26/24 08:40 Antibiotics) CARE MED LIST risedronate sodium AdvReac Intermediate Intolerence Verified 04/26/24 08:40 [From Actonel] Home Meds Home Medications Medication Instructions Recorded Confirmed diclofenac sodium 1 % topical gel 2 g topical QID Pain 10/16/22 04/26/24 (Voltaren Arthritis Pain) sodium chloride 1,000 mg soluble 1,000 mg PO BID 10/16/22 04/26/24 tablet acetaminophen 325 mg tablet 650 mg PO Q6H PRN FEVER/PAIN 07/09/23 04/26/24 levothyroxine 25 mcg tablet 25 mcg PO DAILYBB 07/09/23 04/26/24 menthol 1.6 mg lozenges (Luden's 1.6 mg PO Q1H PRN THROAT PAIN 07/09/23 04/26/24 (menthol)) metformin 500 mg tablet 500 mg PO BIDM 07/09/23 04/26/24 bisacodyl 10 mg rectal suppository 10 mg AR DAILY PRN constipation 07/16/23 04/26/24 (Dulcolax (bisacodyl)) magnesium hydroxide [Milk Of 400 mg PO BID 07/16/23 04/26/24 Magnesia Concentrated] ipratropium 0.5 mg-albuterol 3 mg 3 ml inhalation Q6H PRN sob 09/30/23 04/26/24 (2.5 mg base)/3 mL nebulization soln atorvastatin 20 mg tablet 20 mg PO HS 02/20/24 04/26/24 carboxymethylcellulose sodium 1 % 1 drp ophthalmic (eye) TID PRN Dry 02/20/24 04/26/24 eye drops (Artificial Tears Eyes (carboxymethylcellulose)) Previous Rx's Medication Instructions Recorded cyanocobalamin (vitamin B-12) 1,000 mcg PO DAILY #30 caps 11/16/21 1,000 mcg capsule magnesium oxide 400 mg (241.3 mg 400 mg PO BID #30 tabs 10/31/22 magnesium) tablet levetiracetam 1,000 mg tablet 1,000 mg PO BID #180 tabs 12/02/22 phenytoin sodium extended 30 mg 150 mg (5 x 30 mg) PO BID #300 caps 07/13/23 capsule famotidine 40 mg tablet 40 mg PO BID #90 tabs 03/03/24 omeprazole 40 mg capsule,delayed 40 mg PO DAILY #30 caps 04/26/24 release lasmiditan 50 mg tablet 50 mg PO ONCE PRN migraine 07/19/24 headache 30 days #1 tab cephalexin 250 mg capsule 250 mg PO BID 7 days #14 caps 08/19/24 lidocaine 5 % topical patch 1 patch topical DAILY #15 ea 08/19/24 Results & Data (ED) Vital Signs Vital Signs - 24 hr 08/21/24 14:10 08/21/24 14:13 08/21/24 14:13 Temperature 36.9 C Temperature Source Oral Pulse Rate 98 H Pulse Rate [Apical] 98 H Pulse Rate from SpO2 Sensor Pulse Rhythm Regular Pulse Rhythm [Apical] Regular Pulse Strength Normal Pulse Strength [Apical] Normal Respiratory Rate 24 24 Respiratory Effort / Characteristics Non-Labored Non-Labored Spontaneous Respiratory Depth Normal Normal Respiratory Pattern Regular Regular Blood Pressure 156/95 H 156/95 H Blood Pressure [Right Arm] 156/95 H Blood Pressure Mean 117 115 Blood Pressure Mean [Right Arm] 115 Blood Pressure Position Lying Pulse Oximetry 94 94 Oxygen Delivery Method Room Air Room Air Sepsis Recent Fever Within 48 Hours No Sepsis New/Unexplained Change in Mental Status No Sepsis Action Taken by Nursing No Action Required 08/21/24 14:13 08/21/24 14:20 08/21/24 14:31 Temperature Temperature Source Pulse Rate 100 H 97 H Pulse Rate [Apical] Pulse Rate from SpO2 Sensor Pulse Rhythm Regular Pulse Rhythm [Apical] Pulse Strength Pulse Strength [Apical] Respiratory Rate 24 Respiratory Effort / Characteristics Respiratory Depth Respiratory Pattern Blood Pressure 168/97 H Blood Pressure [Right Arm] Blood Pressure Mean 136 Blood Pressure Mean [Right Arm] Blood Pressure Position Pulse Oximetry 94 Oxygen Delivery Method Room Air Sepsis Recent Fever Within 48 Hours Sepsis New/Unexplained Change in Mental Status Sepsis Action Taken by Nursing 08/21/24 15:00 08/21/24 16:00 Temperature Temperature Source Pulse Rate 97 H Pulse Rate [Apical] 96 H Pulse Rate from SpO2 Sensor 96 H Pulse Rhythm Pulse Rhythm [Apical] Pulse Strength Pulse Strength [Apical] Respiratory Rate 22 20 Respiratory Effort / Characteristics Non-Labored Respiratory Depth Normal Respiratory Pattern Regular Blood Pressure Blood Pressure [Right Arm] 155/60 H Blood Pressure Mean Blood Pressure Mean [Right Arm] 91 Blood Pressure Position Pulse Oximetry 94 94 Oxygen Delivery Method Room Air Sepsis Recent Fever Within 48 Hours Sepsis New/Unexplained Change in Mental Status Sepsis Action Taken by [facility] Medications Current Medication List: was personally reviewed by me Laboratory Data Attestation: I reviewed the patient's lab results. 08/21/24 14:41 08/21/24 14:41 Lab Results 08/21/24 08/21/24 Range/Units 14:41 15:48 WBC 10.74 (4.8-10.8) K/ul RBC 4.01 L (4.20-5.40) M/uL Hgb 12.7 (12.0-16.0) g/dl Hct 38.5 (37.0-47.0) % MCV 96.0 (80.0-100.0) fL MCH 31.7 (25.0-34.0) pg MCHC 33.0 (32.0-36.0) g/dL RDW Std Deviation 44.5 (36.4-46.3) fL RDW Coeff of Ana 12.5 (11.5-14.5) % Plt Count 333 (130-400) K/uL MPV 8.9 L (9.4-12.4) fL Immature Gran % (Auto) 0.4 % Neut % (Auto) 76.0 % Lymph % (Auto) 15.1 % [place] % (Auto) 6.1 % Eos % (Auto) 2.0 % Baso % (Auto) 0.4 % Neut # (Auto) 8.17 H (1.40-6.50) K/uL Lymph # (Auto) 1.62 (1.20-3.40) K/uL [place] # (Auto) 0.65 H (0.11-0.59) K/uL Eos # (Auto) 0.22 (0.00-0.50) K/uL Baso # (Auto) 0.04 (0.00-0.20) K/uL Immature Gran # (Auto) 0.04 (0.01-0.20) K/uL Sodium 131 L (136-145) mmol/L Potassium 4.4 (3.5-5.1) mmol/L Chloride 98 (98-107) mmol/L Carbon Dioxide 27 (21-32) mmol/L Anion Gap 6 (3-11) BUN 9 (6-23) mg/dl Creatinine 0.67 (0.6-1.2) mg/dl Est Cr Clr Drug Dosing 61.8 ml/min eGFR 85.07 BUN/Creatinine Ratio 13.4 (10-20) Glucose 118 H (70-99(Fasting)) mg/dl Calcium 9.2 (8.6-10.3) mg/dl Magnesium 1.6 L (1.7-2.4) mg/dl Total Bilirubin 0.3 (0.2-1.0) mg/dl AST 15 (13-39) U/L ALT 9 (7-52) U/L Alkaline Phosphatase 173 H (34-104) U/L Troponin I High Sens 5.4 (0-14) pg/ml Total Protein 7.4 (6.0-8.3) gm/dl Albumin 4.1 (3.4-5.0) gm/dl Globulin 3.3 (2.5-4.0) gm/dl Albumin/Globulin Ratio 1.2 (0.9-2) TSH 0.627 (0.300-4.500) uIu/ml Urine Color Yellow Urine Appearance Clear (Clear) Urine pH 6.0 (4.5-7.5) Ur Specific [place] 1.020 (1.000-1.030) Urine Protein Negative (Negative) Urine Glucose (UA) Negative (Negative) Urine Ketones 2+ H (Negative) Urine Blood Negative (Negative) Urine Nitrite Negative (Negative) Urine Bilirubin Negative (Negative) Urine Urobilinogen Negative (Negative) Ur Leukocyte Esterase Negative (Negative) Adenovirus (PCR) Not Detected (NotDetected) B. pertussis DNA (PCR) Not Detected (NotDetected) B.parapertussis DNA PCR Not Detected (NotDetected) C. pneumoniae DNA (PCR) Not Detected (NotDetected) Coronavirus OC43 (PCR) Not Detected (NotDetected) Coronavirus HKU1 (PCR) Not Detected (NotDetected) Coronavirus 229E (PCR) Not Detected (NotDetected) SARS-CoV-2 (PCR) Not Detected (NotDetected) Coronavirus NL63 (PCR) Not Detected (NotDetected) Human Metapneumovir PCR Not Detected (NotDetected) Influenza Type A (PCR) Not Detected (NotDetected) Influenza Type B (PCR) Not Detected (NotDetected) M. pneumoniae (PCR) Not Detected (NotDetected) Parainfluenza 1 (PCR) Not Detected (NotDetected) Parainfluenza 2 (PCR) Not Detected (NotDetected) Parainfluenza 3 (PCR) Not Detected (NotDetected) Parainfluenza 4 (PCR) Not Detected (NotDetected) RSV (PCR) Not Detected (NotDetected) Entero/Rhino (PCR) Not Detected (NotDetected) Administered Medications Discontinued Medications Sodium Chloride (Nss) 500 mls @ 999 mls/hr IV .Q31M ONE Stop: 08/21/24 14:50 Last Infusion: 08/21/24 16:11 Dose: Infused Documented By: Admin: 08/21/24 15:10 Dose: 999 mls/hr Documented By: CORTES Magnesium Sulfate/Dextrose (Magnesium Sulfate / D5w) 1 gm in 100 mls @ 100 mls/hr IV NOW STA Stop: 08/21/24 16:15 Last Admin: 08/21/24 15:58 Dose: 100 mls/hr Documented By: MARICRUZ Levetiracetam (Levetiracetam 500 Mg/5 Ml Vial) 1,000 mg IV NOW STA Stop: 08/21/24 15:11 Last Admin: 08/21/24 15:14 Dose: 1,000 mg Documented By: CORTES Imaging Data Radiologist's Impression: Chest X-Ray 08/21/24 14:20 Chest radiograph, one view History: Chest pain Comparison: 07/11/2023 Findings: Single AP view of the chest performed. No focal consolidation or pleural effusion. No pneumothorax. The cardiomediastinal silhouette is within normal limits. Normal pulmonary vascularity. No evidence for lymphadenopathy. No visualized bony or soft tissue abnormality. Degenerative changes of the thoracic spine. Impression: Normal chest radiograph Electronically signed by Luis Case 08-21-2024 2:[address] 08/21/24 15:10 CT head without contrast History: Confusion Comparison: 07/09/2023 Technique: Using multidetector thin collimation helical acquisition technique, axial, coronal and sagittal CT images from the skull base to the vertex were obtained without intravenous contrast. Dose reduction techniques were achieved by using automatic exposure control and/or adjustment of mA and/or kV according to patient size and/or use of iterative reconstruction technique. Findings: No intracranial hemorrhage, mass-effect, or midline shift. The ventricles are proportionate to the cerebral sulci. The vann to white matter differentiation of the cerebral hemispheres is preserved. The basal cisterns are patent. There is moderate cerebral atrophy. Moderate, patchy low-attenuation changes in the white matter, most suggestive of sequelae of chronic small vessel ischemic disease. The visualized paranasal sinuses are clear. Mastoid air cells are clear. Impression: No acute intracranial pathology. Electronically signed by Luis Case 08-21-2024 4:01 PM Discharge Plan Visit Data Chief Complaint: Illness ED Provider: Connor Kong Discharge Problem: Altered mental status, Acute urinary retention, Acute dehydration, Failure of outpatient treatment Patient Disposition: Admitted As Inpatient Condition: Fair Forms Stand Alone Forms: My [facility] Prescriptions Prescriptions: No Action lasmiditan 50 mg tablet 50 mg PO ONCE PRN (Reason: migraine headache) 30 Days Qty: 1 5RF Rx Instructions: Please take one tablet at onset of a migraine attack. Limit one dose in 24 horus levetiracetam 1,000 mg tablet 1,000 mg PO BID Qty: 180 3RF ipratropium-albuterol 0.5 mg-3 mg(2.5 mg base)/3 mL solution for nebulization 3 ml inhalation Q6H PRN (Reason: sob) bisacodyl [Dulcolax (bisacodyl)] 10 mg suppository 10 mg AR DAILY PRN (Reason: constipation ) magnesium hydroxide [Milk Of Magnesia Concentrated] 400 mg PO BID omeprazole 40 mg capsule,delayed release(DR/EC) 40 mg PO DAILY Qty: 30 2RF cyanocobalamin (vitamin B-12) 1,000 mcg capsule 1,000 mcg PO DAILY Qty: 30 0RF sodium chloride 1,000 mg Tablet,Soluble 1,000 mg PO BID diclofenac sodium [Voltaren Arthritis Pain] 1 % gel 2 g topical QID Rx Instructions: APPLY 2 GM. TO POSTERIOR NECK, RIGHT SHOULDER. APPLY 4 GR TO LEFT KNEE. magnesium oxide 400 mg (241.3 mg magnesium) Tablet 400 mg PO BID Qty: 30 0RF Luden's (menthol) 1.6 mg Lozenge 1.6 mg PO Q1H PRN (Reason: THROAT PAIN) Rx Instructions: STARTED 06/26/23 FOR 2 WEEKS. metformin 500 mg tablet 500 mg PO BIDM acetaminophen 325 mg tablet 650 mg PO Q6H MDD 3 GRAMS APAP/24 HOURS PRN (Reason: FEVER/PAIN) levothyroxine 25 mcg tablet 25 mcg PO DAILYBB phenytoin sodium extended 30 mg capsule 150 mg PO BID Qty: 300 0RF atorvastatin 20 mg tablet 20 mg PO HS Artificial Tears (cmc) 1 % Drops 1 drp OPHTHALMIC (EYE) TID PRN (Reason: Dry Eyes) famotidine 40 mg tablet 40 mg PO BID Qty: 90 6RF cephalexin 250 mg capsule 250 mg PO BID 7 Days Qty: 14 0RF lidocaine 5 % adhesive patch,medicated 1 patch topical DAILY Qty: 15 0RF Rx Instructions: leave on most painful area for up to 12 hrs Referrals Referrals: Darrell Weiss III, MD [Primary Care Provider] - Discharge Problem: Altered mental status Qualifiers: Altered mental status type: disorientation Qualified Code(s): R41.0 - Disorientation, unspecified
--- NOTE | 2024-08-21 14:54 | XRay Report ---
Chest radiograph, one view History: Chest pain Comparison: 07/11/2023 Findings: Single AP view of the chest performed. No focal consolidation or pleural effusion. No pneumothorax. The cardiomediastinal silhouette is within normal limits. Normal pulmonary vascularity. No evidence for lymphadenopathy. No visualized bony or soft tissue abnormality. Degenerative changes of the thoracic spine. Impression: Normal chest radiograph Electronically signed by Luis Case 08-21-2024 2:54 PM
[2024-08-21 14:58] LABS: Basophils # (auto) 0.04 K/uL (0.00-0.20); Basophils % (auto) 0.4 %; Eosinophils # (auto) 0.22 K/uL (0.00-0.50); Hematocrit (blood only) 38.5 % (37.0-47.0); Hemoglobin 12.7 g/dl (12.0-16.0); Immature Granulocytes # (auto) 0.04 K/uL (0.01-0.20); Immature Granulocytes % (auto) 0.4 %; Lymphocytes # (auto) 1.62 K/uL (1.20-3.40); Lymphocytes % (auto) 15.1 %; Mean Corpuscular Hemoglobin 31.7 pg (25.0-34.0); Mean Platelet Volume 8.9 fL (9.4-12.4); Monocytes # (auto) 0.65 K/uL (0.11-0.59); Monocytes % (auto) 6.1 %; Neutrophils # (auto) 8.17 K/uL (1.40-6.50); Platelet Count 333 K/uL (130-400); RDW Coefficient of Variation 12.5 % (11.5-14.5); RDW Standard Deviation 44.5 fL (36.4-46.3); Red Blood Count 4.01 M/uL (4.20-5.40); White Blood Count 10.74 K/ul (4.8-10.8)
[2024-08-21] MEDS: SODIUM CHLORIDE 0.9% 500 ML IV ONE (15:10)
[2024-08-21] MEDS: levETIRAcetam 500 MG/5 ML VIAL IV STA (15:14)
[2024-08-21 15:15] LABS: Albumin Globulin Ratio 1.2 (0.9-2); Albumin Level 4.1 gm/dl (3.4-5.0); BUN Creatinine Ratio 13.4 (10-20); Bilirubin,Total 0.3 mg/dl (0.2-1.0); Calcium 9.2 mg/dl (8.6-10.3); Creatinine Clr Calc Pharmacy 61.8 ml/min; Globulin 3.3 gm/dl (2.5-4.0); Magnesium 1.6 mg/dl (1.7-2.4); Potassium 4.4 mmol/L (3.5-5.1); Total Protein 7.4 gm/dl (6.0-8.3)
[2024-08-21 15:22] LABS: Troponin I High Sensitivity 5.4 pg/ml (0-14)
[2024-08-21 15:31] LABS: Thyroid Stimulating Hormone 0.627 uIu/ml (0.300-4.500)
[2024-08-21 15:46] LABS: Adenovirus PCR Not Detected (NotDetected); Bordetella parapertussis PCR Not Detected (NotDetected); Bordetella pertussis PCR Not Detected (NotDetected); Chlamydia pneumoniae PCR Not Detected (NotDetected); Coronavirus 229E PCR Not Detected (NotDetected); Coronavirus CoV-2 (COVID19)PCR Not Detected (NotDetected); Coronavirus HKU1 PCR Not Detected (NotDetected); Coronavirus NL63 PCR Not Detected (NotDetected); Coronavirus OC43PCR Not Detected (NotDetected); Human Metapneumovirus PCR Not Detected (NotDetected); Influenza A PCR Not Detected (NotDetected); Influenza B PCR Not Detected (NotDetected); Mycoplasma pneumoniae PCR Not Detected (NotDetected); Parainfluenza Virus 1 PCR Not Detected (NotDetected); Parainfluenza Virus 2 PCR Not Detected (NotDetected); Parainfluenza Virus 3 PCR Not Detected (NotDetected); Parainfluenza Virus 4 PCR Not Detected (NotDetected); Respiratory Syncytial VirusPCR Not Detected (NotDetected); Rhinovirus/Enterovirus PCR Not Detected (NotDetected)
[2024-08-21] MEDS: MAGNESIUM SULFATE / D5W 1 GM/100 ML BAG IV STA (15:58)
--- NOTE | 2024-08-21 16:03 | CT Scan Report ---
CT head without contrast History: Confusion Comparison: 07/09/2023 Technique: Using multidetector thin collimation helical acquisition technique, axial, coronal and sagittal CT images from the skull base to the vertex were obtained without intravenous contrast. Dose reduction techniques were achieved by using automatic exposure control and/or adjustment of mA and/or kV according to patient size and/or use of iterative reconstruction technique. Findings: No intracranial hemorrhage, mass-effect, or midline shift. The ventricles are proportionate to the cerebral sulci. The vann to white matter differentiation of the cerebral hemispheres is preserved. The basal cisterns are patent. There is moderate cerebral atrophy. Moderate, patchy low-attenuation changes in the white matter, most suggestive of sequelae of chronic small vessel ischemic disease. The visualized paranasal sinuses are clear. Mastoid air cells are clear. Impression: No acute intracranial pathology. Electronically signed by Luis Case 08-21-2024 4:01 PM
[2024-08-21 16:07] LABS: Appearance Urine Clear (Clear); Bilirubin Urine Negative (Negative); Blood Urine Negative (Negative); Color Urine Yellow; Glucose Urine UA Negative (Negative); Ketones Urine 2+ (Negative); Leukocyte Esterase Urine Negative (Negative); Nitrite Urine Negative (Negative); Protein Urine Negative (Negative); Urobilinogen Urine Negative (Negative)
[2024-08-21] MEDS: cefTRIAXone SODIUM 2,000 MG/50 ML BAG IV STA (16:58)
[2024-08-21] MEDS ORDERED: 0.2 MICRON FILTER SET 1 EACH IV ONE (17:00)
--- NOTE | 2024-08-21 17:17 | History & Physical Report ---
Date of Service August 21, 2024 Assessment & Plan (1) Altered mental status: Plan: This is an 88-year-old female with past medical history of seizure disorder, hiatal hernia, type 2 diabetes, anemia who presented to the ED from [place] [facility] on 08/21/2024 for acute mental status. Etiology: Related to seizure disorder versus infection CBC without leukocytosis BMP with hyponatremia of 131 (appears within baseline), BUN/creatinine within normal limits Magnesium decreased at 1.6repleted in the ED Troponin negative x 2 TSH WNL Urinalysis negative Respiratory BioFire negative Chest x-ray negative Head CT negative KUB: mildy improved ileus, low grade partial obstruction considered. Keppra and Phenytoin levels pending. Patient given 1000 mg IV Keppra in ED Given mental status, patient unable to take medications orally. Converted Keppra and phenytoin to IV until mental status improves Neurology consulted, appreciate recommendations, discussed w/ Dr. Montero at time of admission. CTAP w/ IV contrast pending AM CBC, BMP, Magnesium (2) Acute urinary retention: Plan: Recently diagnosed w/ UTI on Keflex outpatient. In ED patient seen to be retaining 750cc of urine. UC 08/19 mixed carlton, no repeats pending given negative urinalysis. s/p Arnold catheter placement. Keflex transitioned to IV Rocephin inpatient, plan to continue. (3) L3 vertebral fracture: Plan: recently diagnosed w/ acute L3 vertebral fracture in ED on 08/19 Lidocaine patch Calcitonin spray daily - added due to hx of osteoporosis. Tylenol prn Consider ortho spine consultation if pain persists - patient given information to follow up outpatient on 08/19. (4) Type 2 diabetes mellitus: Plan: a1c 04/15/2024: 6.2% - on metformin BID outpatient. BG 118 on admission SSI 110-140mg/dL w/ CF of 15, no carb ratio adjust as needed. A1c in AM (5) Acute UTI (urinary tract infection): Plan: see plan #2 Plan Plan to hold PO outpatient medications until mental status improves. DVT prophylaxis: Lovenox Disposition: med/tele Daughters updated at bedside 08/21 Case was discussed with Dr. Pickens at time of admission. History of Present Illness Primary Care Provider: Darrell Weiss III, This is an 88-year-old female with past medical history of seizure disorder, hiatal hernia, type 2 diabetes, anemia who presented to the ED from [facility] on 08/21/2024 for acute mental status. While in the emergency department, patient underwent chest x-ray that was negative, head CT negative. Respiratory BioFire negative. Urinalysis negative. Magnesium mildly low at 1.6 which was repleted. Remainder of lab work appears stable with previous. The patient was seen and examined at bedside. Patient's daughters were present at time of encounter. Patient was able to provide no history. She was nonverbal. Patient's daughters note that this is very off from her baseline. She states that she is normally alert and oriented and able to converse in a normal conversation. She states that the patient presented to the emergency department on 08/19 for lower back pain and bilateral flank pain. She was diagnosed with an acute L3 fracture and a UTI. She was sent home on Keflex. She also had a CAT scan at that time that did reveal a nonspecific ileus. Patient's daughter states that patient was incontinent of her bowels prior to EMS picking her up. They state that the altered mental status began yesterday on 08/20. She states that after she was in the emergency department she did miss at least 1 dose of her seizure medications. The 1 daughter states that she went to visit her this morning and the patient started to mildly twitch at bedside. Patient's family reports that this has happened in the past prior to the patient experiencing a grand mal seizure. She does follow routinely outpatient with Dr. Montero for this and is on Keppra 1000 mg twice daily and phenytoin 150 mg twice daily. Allergies Allergy/AdvReac Type Severity Reaction Status Date / Time levofloxacin [From Levaquin] Allergy Severe Possible Verified 04/26/24 08:40 seizure peanut Allergy Intermediate SNEEZE, Verified 04/26/24 08:40 COUGH allopurinol [From Zyloprim] Allergy Unknown ON CENTRE Verified 04/26/24 08:40 CARE MED LIST lorazepam Allergy Unknown ON CENTRE Verified 04/26/24 08:40 CARE MED LIST nortriptyline Allergy Unknown ON CENTRE Verified 04/26/24 08:40 CARE MED LIST Opioids - Morphine Analogues Allergy Unknown ON CENTRE Verified 04/26/24 08:40 CARE MED LIST Penicillins Allergy Unknown ON CENTRE Verified 04/26/24 08:40 CARE MED LIST Sulfa (Sulfonamide Allergy Unknown ON CENTRE Verified 04/26/24 08:40 Antibiotics) CARE MED LIST risedronate sodium AdvReac Intermediate Intolerence Verified 04/26/24 08:40 [From [facility] Home Medications Medication Instructions Recorded Confirmed Type diclofenac sodium 1 % topical gel 2 g topical QID Pain 10/16/22 08/21/24 History (Voltaren Arthritis Pain) sodium chloride 1,000 mg soluble 1,000 mg PO AMHS 10/16/22 08/21/24 History tablet acetaminophen 325 mg tablet 650 mg PO Q6H PRN FEVER/PAIN 07/09/23 08/21/24 History levothyroxine 25 mcg tablet 25 mcg PO DAILYBB 07/09/23 08/21/24 History metformin 500 mg tablet 500 mg PO BIDM 07/09/23 08/21/24 History atorvastatin 20 mg tablet 20 mg PO HS 02/20/24 08/21/24 History carboxymethylcellulose sodium 1 % 2 drp OPB Q8 PRN Dry Eyes 02/20/24 08/21/24 History eye drops (Artificial Tears (carboxymethylcellulose)) cyanocobalamin (vitamin B-12) 1,000 mcg PO QAM 08/21/24 08/21/24 History 1,000 mcg capsule eucalyptus-menthol oral mucosal 1 letitia mucous membrane .EVERY 1 08/21/24 08/21/24 History lozenge HOUR PRN Cough famotidine 40 mg tablet 40 mg PO Q12 08/21/24 08/21/24 History lasmiditan 50 mg tablet (Reyvow) 50 mg PO DAILY PRN Migraine 08/21/24 08/21/24 History Headache levetiracetam 1,000 mg tablet 1,000 mg PO AMHS 08/21/24 08/21/24 History lidocaine 4 % topical patch 1 patch topical UD 08/21/24 08/21/24 History magnesium oxide 400 mg (241.3 mg 400 mg PO AMHS 08/21/24 08/21/24 History magnesium) tablet nitrofurantoin 100 mg PO AMHS 08/21/24 08/21/24 History monohydrate/macrocrystals 100 mg capsule omeprazole 20 mg tablet,delayed 40 mg PO QAM 08/21/24 08/21/24 History release ondansetron 4 mg disintegrating 4 mg PO Q6H PRN Nausea / Vomiting 08/21/24 08/21/24 History tablet phenytoin sodium extended 30 mg 150 mg PO AMHS 08/21/24 08/21/24 History capsule Past Med/Surg History Problem List (Updated 08/21/24 @ 17:25 by Donna Chaparro PA-C) L3 vertebral fracture Failure of outpatient treatment (Acute) Acute dehydration (Acute) Acute urinary retention (Acute) Altered mental status (Acute) Acute UTI (urinary tract infection) (Acute) Fracture of lumbar spine (Acute) Bloating Nausea Epigastric abdominal pain Dysphagia Migraine without aura, not intractable, without status migrainosus Hypocalcemia Seizure (Acute) Aphasia Hypophosphatemia Hypomagnesemia Hypokalemia Acute encephalopathy Dilantin level too low (Acute) Anemia (Acute) Altered mental status (Acute) AMS (altered mental status) (Acute) CHI (closed head injury) (Acute) Fall (Acute) Idiopathic polyneuropathy (Chronic) B12 deficiency (Chronic) Type 2 diabetes mellitus (Chronic) Hiatal hernia (Chronic) Acid reflux (Chronic) Seizure disorder (Chronic) epilepsy, primary generalized seizure disorder--follows with Dr. 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- taking seizure meds- last seizure beginning of 2019 secondary to low phenytoin level in context of tx of infection- has had no interval seizures- clinically stable- follow up six months Osteoporosis (Chronic) Osteoarthritis (Chronic) Hypothyroidism (Chronic) Dyslipidemia (Chronic) Medical History long-term resident pt is resident of [facility] Aphasia History of dysphagia Cognitive communication deficit History of COVID-19 Other abnormalities of gait and mobility History of closed head injury History of anemia Hx of encephalopathy Hx of hypokalemia Idiopathic polyneuropathy Type 2 diabetes mellitus Hiatal hernia with GERD without esophagitis Osteoporosis Osteoarthritis Hypothyroidism Dyslipidemia Seizure epilepsy, primary generalized seizure disorder--follows with Dr. 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- taking seizure meds- last seizure beginning of 2019 secondary to low phenytoin level in context of tx of infection- has had no interval seizures- clinically stable- follow up six months Hyponatremia hx Gallstone pancreatitis hx History of stroke 20 YRS AGO Surgical History S/P endoscopic carpal tunnel release 06/14/2021 Right wrist History of ankle surgery x2--left d/t fracture History of open reduction and internal fixation (ORIF) procedure left wrist--hardware removed History of tooth extraction all top removed/most of bottom History of ERCP (07/29/20) History of right cataract extraction S/P cholecystectomy (07/29/20) H/O: hysterectomy (~1965) History of appendectomy (~1965) History of surgery on left wrist History of colonoscopy Family History Father Hypertension Mother Diabetes Myocardial infarction Brother Diabetes Lung disease Brother Diabetes Brother Diabetes Brother Diabetes Brother Diabetes Other No family history of adverse response to anesthesia Denies family history of Ovarian cancer Prostate cancer Breast cancer Colorectal cancer Social History Smoking Status: Never smoker Second Hand Exposure: No; Do You Dip or Chew Tobacco: No; Hx Alcohol Use: No Hx Substance Use: No Preferred Language: Czech Communication Ability: Unable Communication Ability Comment: cognitive communication deficit Visual Impairment: No Limitations Hearing Ability: Hard of Hearing 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 How many Children do You have: 2 Feels Safe at Home: Yes Childhood Exposure to Second-Hand Smoke: Yes Diet: regular Diet Comment: Patient watches serving sizes and counts carefully Dental Care, Regularly: No Physical Activity Frequency: Daily Seatbelt Use: always Sunscreen Use: Yes (when she goes outside ) Gender Identity: Female Assistive Devices: Wheelchair Physical Exam Constitutional: WD/WN, vitals as above Eyes: PERRL, conjunctivae normal, anicteric sclerae Respiratory: normal respiratory effort, lungs clear to auscultation Cardiovascular: RRR, no murmur, no edema Gastrointestinal (Abdomen): grimace to palpation of abdomen. soft. +BS. Neurologic: awake, non verbal. moving extremities. Results & Data Results & Data Vital Signs (Past 12 Hours) Vital Signs Temp Pulse Pulse Resp BP BP Pulse Ox 08/21/24 17:00 158/96 H 08/21/24 17:00 99 H 16 95 08/21/24 16:00 96 H 20 155/60 H 94 08/21/24 15:00 97 H 22 94 08/21/24 14:31 168/97 H 08/21/24 14:20 97 H 24 94 08/21/24 14:13 100 H 08/21/24 14:13 98 H 24 156/95 H 94 08/21/24 14:13 36.9 C 98 H 24 156/95 H 94 08/21/24 14:10 156/95 H O2 Del Method 08/21/24 17:00 08/21/24 17:00 Room Air 08/21/24 16:00 Room Air 08/21/24 15:00 08/21/24 14:31 08/21/24 14:20 Room Air 08/21/24 14:13 08/21/24 14:13 Room Air 08/21/24 14:13 Room Air 08/21/24 14:10 Supervising Physician Co-Signing Physician Notes I personally saw and examined the patient. I independently reviewed the labs, EKG, imaging, problem list, medication list, past medical history and family history. I verified all villarreal points and agree with Donna Chaparro PA-C with the following exceptions and/or additions: 88 year old female who presents to the ER with altered mental state and concern for seizure activity. O/E Alert but non verbal, HS RRR, no murmurs, Chest CTAB, Abdo SNT A/P Altered mental state - ?postictal from seizures, switch PO anti-seizure medications to IV UTI - diagnosed prior to admission, switch to IV ceftriaxone while unable to take PO medications Abdominal pain (noted by PA on admission and concern from family for this) - CT A/P with IV contrast given concern for partial bowel obstruction PG Care Time/CCT Total # of Minutes Spent Total Time Spent with Patient: Total time spent is greater than 50% in coordination of care (as documented) at patient's floor/unit and/or counseling patient: Coding Level of Care Code 42566 INT INP/OBS CARE 3/75MIN Diagnoses Altered mental status R41.0 Altered mental status type: disorientation Acute urinary retention R33.8 L3 vertebral fracture S32.039A Type 2 diabetes mellitus E11.9 Acute UTI (urinary tract infection) N39.0 (1) Altered mental status Altered mental status type: disorientation Qualified Code(s): R41.0 - Disorientation, unspecified
--- NOTE | 2024-08-21 17:31 | XRay Report ---
EXAM: Radiograph of the Abdomen 1 View INDICATION: Ileus. TECHNIQUE: Frontal supine view of the abdomen/pelvis. COMPARISON: 08/19/2024 FINDINGS: Limitations: None. Lower thorax: Mild atelectasis or scarring in the lung bases. Gastrointestinal tract: Slight improved number of prominent small bowel loops occupying the lower mid abdomen. Stable amounts of colonic air to the rectum. Organs: Cholecystectomy. Bones/joints: Degenerative changes noted throughout the spine. No acute osseous abnormality seen. Soft tissues: No abnormality noted. No radiopaque foreign body noted. IMPRESSION: Minimally improved ileus. A low-grade partial obstruction should also be considered. If symptoms continue, the patient may benefit from repeat CT with oral and IV contrast. ACT 112: Negative or not required by law. Electronically signed by Maria Dolores Abraham 08-21-2024 5:30 PM
[2024-08-21] MEDS ORDERED: ARTIFICIAL TEARS OP PRN (18:03)
[2024-08-21] MEDS: SODIUM CHLORIDE 0.9% 10ML FLUSH IV SCH ×2 (19:16→19:20)
[2024-08-21] MEDS: PHENYTOIN SOD INJ 50 MG/ML 5 ML VIAL IV SCH (19:16)
[2024-08-21] MEDS: INSULIN ASPART PER UNIT CHARGE SC SCH (20:25)
[2024-08-21] MEDS: LIDOCAINE 5% 1 PATCH TD STA (20:25)
[2024-08-21] MEDS: SODIUM CHLORIDE 0.9% 1,000 ML IV SCH (20:25)
[2024-08-21] MEDS: ENOXAPARIN INJ 40 MG/0.4 ML SYR SQ SCH (20:26)
[2024-08-21] MEDS: OPTIRAY 320 100ml IV ONE (21:34)
--- NOTE | 2024-08-21 23:00 | CT Scan Report ---
Exam(s): CT ABDOMEN + PELVIS With Contrast IV Amt: 93ml optiray 320 EXAM: CT Abdomen and Pelvis With Intravenous Contrast CLINICAL HISTORY: Reason for exam: concern for bowel obstruction on KUB. TECHNIQUE: Axial computed tomography images of the abdomen and pelvis with intravenous contrast. CTDI is 28 mGy and DLP is 1334 mGy-cm. Automated exposure control was utilized for the study. A dose lowering technique was utilized adhering to the principles of ALARA. CONTRAST: Patient received 93ml optiray 320 of IV contrast COMPARISON: 08/19/24 FINDINGS: Lung bases: Subsegmental atelectasis at the lung bases. Heart: Coronary artery atherosclerosis. Mediastinum: Small sliding-type hiatal hernia. ABDOMEN: Liver: Unremarkable. No mass. Gallbladder and bile ducts: Cholecystectomy. No ductal dilation. Pancreas: Unremarkable. No mass. No ductal dilation. Spleen: Unremarkable. No splenomegaly. Adrenals: Unremarkable. No mass. Kidneys and ureters: Subcentimeter simple renal cysts; no follow-up indicated. Symmetric renal enhancement. No hydronephrosis. Stomach and bowel: Colonic diverticulosis without diverticulitis. No evidence of mechanical bowel obstruction. Small and large bowel fluid levels could reflect enteritis/diarrheal disease. PELVIS: Appendix: Normal appendix. Bladder: Unremarkable. No mass. Reproductive: Unremarkable as visualized. ABDOMEN and PELVIS: Intraperitoneal space: Unremarkable. No free air, significant free fluid, or fluid collection. Bones/joints: No interval change in acute fracture involving the anterosuperior corner of the L3 vertebral body. Mild chronic compression deformities at T10-L1. Disc and facet degeneration in the lumbar spine. Possible pars defects at L5. No additional acute fractures. No dislocation. Soft tissues: Unremarkable. Vasculature: Atherosclerosis of the aorta. Lymph nodes: Unremarkable. No enlarged lymph nodes. IMPRESSION: 1. No interval change in acute fracture involving the anterosuperior corner of the L3 vertebral body. 2. No evidence of mechanical bowel obstruction. Small and large bowel fluid levels could reflect enteritis/diarrheal disease. Electronically signed by: Alec Mcgrath M.D. 08/21/24 22:59 PM
[2024-08-22] MEDS: LEVOTHYROXINE SODIUM 25 MCG TABLET PO SCH (05:15)
[2024-08-22 06:28] LABS: Hematocrit (blood only) 34.2 % (37.0-47.0); Hemoglobin 11.4 g/dl (12.0-16.0); Mean Corpuscular Hemoglobin 31.8 pg (25.0-34.0); Mean Corpuscular Hgb Conc 33.3 g/dL (32.0-36.0); Mean Corpuscular Volume 95.5 fL (80.0-100.0); Platelet Count 325 K/uL (130-400); RDW Coefficient of Variation 12.8 % (11.5-14.5); RDW Standard Deviation 45.3 fL (36.4-46.3); Red Blood Count 3.58 M/uL (4.20-5.40); White Blood Count 7.78 K/ul (4.8-10.8)
[2024-08-22 06:56] LABS: BUN Creatinine Ratio 14.6 (10-20); Calcium 8.3 mg/dl (8.6-10.3); Creatinine Clr Calc Pharmacy 85.9 ml/min; Magnesium 1.7 mg/dl (1.7-2.4); Potassium 3.8 mmol/L (3.5-5.1)
[2024-08-22 07:11] LABS: Estimated Average Glucose 128 mg/dl; Hemoglobin A1C 6.1 % (4.5-5.6)
[2024-08-22] MEDS: MAGNESIUM SULFATE / D5W 1 GM/100 ML BAG IV ONE (08:57)
[2024-08-22] MEDS: CALCITONIN SALMON NA 200 IU/AC 3.7 ML BTL SCH (09:02)
[2024-08-22] MEDS: levETIRAcetam 500 MG/5 ML VIAL IV SCH (09:30)
--- NOTE | 2024-08-22 10:27 | Neurology Consultation ---
Date of Consultation August 22, 2024 Assessment & Plan (1) Altered mental status: (2) Seizure disorder: (3) Acute urinary retention: (4) Acute UTI (urinary tract infection): (5) L3 vertebral fracture: Plan Altered mental status in the context of recent urinary tract infection, acute urinary retention, recent L3 vertebral fracture without retropulsion or significant height loss, history of primary generalized epilepsy which has been stable with Dilantin and Keppra. At this point in time, there does not appear to be any indication that she has had any seizures recently. Her altered mental status is likely related to the above identified issues. Would continue with phenytoin 150 mg IV every 12 hours and levetiracetam 1000 mg IV every 12 hours. Follow-up with levels when available. May transition her seizure medication to oral formulation when medically appropriate. Does not require an EEG at this time. (Previous EEG completed in 2016 was abnormal with findings indicative of a primary generalized epilepsy.) May utilize lorazepam IV if necessary for any clinical seizure activity. If her mental status does not improve, would consider obtaining an EEG to assess for subclinical seizures. Likewise, would also consider obtaining an up-to-date brain MRI if her mental status does not improve. However, her presentation is not suggestive of acute stroke. Please call with any questions. She may follow-up with myself or an ALEX in neurology clinic in 2 to 3 weeks. History of Present Illness Reason for Consultation: History of seizure disorder, altered mental status Requesting Physician: Krysta Attending Physician: Tiffanie Regalado, DO History of Present Illness The patient is an 88-year-old female who is known to me. She follows in neurology clinic regarding a history of primary generalized epilepsy for which she has been on Dilantin and Keppra for many years. I saw her for hospitalization in October 2022 in the context of altered mental status and an observed seizure that occurred in the emergency department at that time. She had a subtherapeutic Dilantin level. She also has an idiopathic polyneuropathy. My colleague, Dr. Montez, had seen her in June 2023 during a hospitalization for a possible seizure episode that occurred at the care home, she was reportedly postictal with transient aphasia. She has also been following with Dr. Ping Aguilera, in neurology clinic, for management of migraine. The patient was last seen in our clinic on March 31, 2024 with Edelmira Padilla PA-C, have been stable from a seizure perspective at that time. She presented to the emergency department on August 19, 2024 with a complaint of low back and bilateral flank pain. She was diagnosed with an acute L3 fracture without retropulsion or significant height loss. He was also found to have a nonspecific ileus and a urinary tract infection. She was given a prescription for Keflex. She presented again to the emergency department on August 21, 2024 for altered mental status that began the previous day, she had apparently missed a dosage of her seizure medication. Patient's family had expressed concern regarding her altered mental status has she has behaved similarly in the context of her seizures previously. She was given a 1 g loading dose of Keppra in the emergency department. Her antiseizure medications have been continued intravenously. A CT of the head completed yesterday was negative for acute process. I did independently review these images. There is age-appropriate atrophy and chronic small vessel ischemic disease and a few small chronic lacunar infarcts. Her last brain MRI was completed in October 2022 and revealed no acute process at that time, no mesial temporal sclerosis, nodular heterotopia, or other structural disease. There was generalized atrophy, chronic small vessel ischemic disease, and a few old infarcts. I independently reviewed these images as well. Patient's last EEG was completed at [facility] in June 2016, interpreted by Dr. Sindy Ramirez. There were occasional generalized polymorphic delta waves with superimposed spike activity lasting less than 1 second. There was moderate background disorganization and slowing. The results were likely indicative of a generalized epilepsy syndrome and moderate encephalopathy at that time. Last lamotrigine level obtained in June 2023 was 44.1. Last phenytoin level was obtained April 23, 2024, was 10.0. Up-to-date levels are pending. She had been having difficulty with phenytoin toxicity in 2022, her levels in 2023 have thus far been appropriate. This morning, the patient is resting comfortably in bed, she is awake, alert, somewhat confused, unable to provide details pertaining to her present illness. Allergies Allergy/AdvReac Type Severity Reaction Status Date / Time levofloxacin [From Levaquin] Allergy Severe Possible Verified 04/26/24 08:40 seizure peanut Allergy Intermediate SNEEZE, Verified 04/26/24 08:40 COUGH allopurinol [From Zyloprim] Allergy Unknown ON CENTRE Verified 04/26/24 08:40 CARE MED LIST lorazepam Allergy Unknown ON CENTRE Verified 04/26/24 08:40 CARE MED LIST nortriptyline Allergy Unknown ON CENTRE Verified 04/26/24 08:40 CARE MED LIST Opioids - Morphine Analogues Allergy Unknown ON CENTRE Verified 04/26/24 08:40 CARE MED LIST Penicillins Allergy Unknown ON CENTRE Verified 04/26/24 08:40 CARE MED LIST Sulfa (Sulfonamide Allergy Unknown ON CENTRE Verified 04/26/24 08:40 Antibiotics) CARE MED LIST risedronate sodium AdvReac Intermediate Intolerence Verified 04/26/24 08:40 [From Actonel] Home Medications Medication Instructions Recorded Confirmed Type diclofenac sodium 1 % topical gel 2 g topical QID Pain 10/16/22 08/21/24 History (Voltaren Arthritis Pain) sodium chloride 1,000 mg soluble 1,000 mg PO AMHS 10/16/22 08/21/24 History tablet acetaminophen 325 mg tablet 650 mg PO Q6H PRN FEVER/PAIN 07/09/23 08/21/24 History levothyroxine 25 mcg tablet 25 mcg PO DAILYBB 07/09/23 08/21/24 History metformin 500 mg tablet 500 mg PO BIDM 07/09/23 08/21/24 History atorvastatin 20 mg tablet 20 mg PO HS 02/20/24 08/21/24 History carboxymethylcellulose sodium 1 % 2 drp OPB Q8 PRN Dry Eyes 02/20/24 08/21/24 History eye drops (Artificial Tears (carboxymethylcellulose)) cyanocobalamin (vitamin B-12) 1,000 mcg PO QAM 08/21/24 08/21/24 History 1,000 mcg capsule eucalyptus-menthol oral mucosal 1 letitia mucous membrane .EVERY 1 08/21/24 08/21/24 History lozenge HOUR PRN Cough famotidine 40 mg tablet 40 mg PO Q12 08/21/24 08/21/24 History lasmiditan 50 mg tablet (Reyvow) 50 mg PO DAILY PRN Migraine 08/21/24 08/21/24 History Headache levetiracetam 1,000 mg tablet 1,000 mg PO AMHS 08/21/24 08/21/24 History lidocaine 4 % topical patch 1 patch topical UD 08/21/24 08/21/24 History magnesium oxide 400 mg (241.3 mg 400 mg PO AMHS 08/21/24 08/21/24 History magnesium) tablet nitrofurantoin 100 mg PO AMHS 08/21/24 08/21/24 History monohydrate/macrocrystals 100 mg capsule omeprazole 20 mg tablet,delayed 40 mg PO QAM 08/21/24 08/21/24 History release ondansetron 4 mg disintegrating 4 mg PO Q6H PRN Nausea / Vomiting 08/21/24 08/21/24 History tablet phenytoin sodium extended 30 mg 150 mg PO AMHS 08/21/24 08/21/24 History capsule Patient History Medical History assisted resident pt is resident of [facility] Aphasia History of dysphagia Cognitive communication deficit History of COVID-19 Other abnormalities of gait and mobility History of closed head injury History of anemia Hx of encephalopathy Hx of hypokalemia Idiopathic polyneuropathy Type 2 diabetes mellitus Hiatal hernia with GERD without esophagitis Osteoporosis Osteoarthritis Hypothyroidism Dyslipidemia Seizure epilepsy, primary generalized seizure disorder--follows with Dr. 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- taking seizure meds- last seizure beginning of 2019 secondary to low phenytoin level in context of tx of infection- has had no interval seizures- clinically stable- follow up six months Hyponatremia hx Gallstone pancreatitis hx History of stroke 20 YRS AGO Surgical History S/P endoscopic carpal tunnel release 06/14/2021 Right wrist History of ankle surgery x2--left d/t fracture History of open reduction and internal fixation (ORIF) procedure left wrist--hardware removed History of tooth extraction all top removed/most of bottom History of ERCP (07/29/20) History of right cataract extraction S/P cholecystectomy (07/29/20) H/O: hysterectomy (~1965) History of appendectomy (~1965) History of surgery on left wrist History of colonoscopy Family History Father Hypertension Mother Diabetes Myocardial infarction Brother Diabetes Lung disease Brother Diabetes Brother Diabetes Brother Diabetes Brother Diabetes Other No family history of adverse response to anesthesia Denies family history of Ovarian cancer Prostate cancer Breast cancer Colorectal cancer Social History Smoking Status: Never smoker Second Hand Exposure: No; Do You Dip or Chew Tobacco: No; Hx Alcohol Use: No Hx Substance Use: No Preferred Language: Turkmen Communication Ability: Unable Communication Ability Comment: cognitive communication deficit Visual Impairment: No Limitations Hearing Ability: Hard of Hearing Head Well Puller Required: No Beliefs That Will Affect Care: None marital status: / Current Living Situation: Longterm Current Living Situation Comment: [facility] current occupational status: retired 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 How many Children do You have: 2 Feels Safe at Home: Yes Childhood Exposure to Second-Hand Smoke: Yes Diet: regular Diet Comment: Patient watches serving sizes and counts carefully Dental Care, Regularly: No Physical Activity Frequency: Daily Seatbelt Use: always Sunscreen Use: Yes (when she goes outside ) Gender Identity: Female Assistive Devices: Wheelchair Review of Systems Review of Systems: Unobtainable due to cognitive status Exam (Neuro) Constitutional: well developed and + frail appearing; no acute distress Eyes: normal visual pond by confrontation, PERRL and EOM intact bilaterally; no nystagmus Neurologic: Oriented to:: Person; negative Place or Time Cognitive Function: Other (Is perseverative); negative Concentration, Insight or Calculations Memory: negative Short Term Intact Attention: Span Intact Speech Fluency: Limited Comprehension and Other (Minimal spontaneous speech); negative Dysarthria Fund of Knowledge: negative Current Events or Past History Cranial Nerves: Normal II, III, IV, , V, VII, VIII, IX, X, XI and XII Motor Strength: Normal Lower Extremities and Normal Upper Extremities Motor Tone: Normal Lower Extremities and Normal Upper Extremities Muscle Bulk/Involuntary Movements: No Involuntary Movements; negative Muscle Atrophy Sensation: Light Touch Intact, Pain/Temperature Intact and Proprioception Intact Coordination: negative Finger-Nose Abnormal Deep Tendon Reflexes: Rt Triceps: 2+, Lt Triceps: 2+, Rt Biceps: 2+, Lt Biceps: 2+, Rt Brachioradialis: 2+, Lt Brachioradialis: 2+, Rt Patellar: 2+, Lt Patellar: 2+, Rt Ankle: 1+ and Lt Ankle: 1+ Results & Data Vital Signs (Past 12 Hours) Vital Signs Temp Pulse Pulse Resp BP Pulse Ox O2 Del Method 08/22/24 07:50 36.5 C 96 H 20 151/80 H 94 Room Air 08/22/24 07:46 97 H 08/22/24 03:01 94 H 19 95 Room Air 08/22/24 02:38 36.7 C 93 H 16 152/77 H 91 Room Air 08/21/24 23:23 93 H 08/21/24 23:19 36.4 C L 94 H 20 164/97 H 94 Room Air Laboratory Results BBC 7.78, hemoglobin 11.4, hematocrit 34.2, platelet count 325, sodium 134, potassium 3.8, BUN 7, creatinine 0.48, glucose 105, hemoglobin A1c 6.1, calcium 8.3, magnesium 1.7, AST 15, ALT 9, TSH 0.67, phenytoin and levetiracetam levels pending Diagnostic Findings Electrocardiogram reveals a normal sinus rhythm. Coding Level of Care Code 74332 INT INP/OBS CARE 3/75MIN Diagnoses Altered mental status R41.0 Altered mental status type: disorientation Seizure disorder G40.909 Acute urinary retention R33.8 Acute UTI (urinary tract infection) N39.0 L3 vertebral fracture S32.039A Time Spent (min) 90 (1) Altered mental status Altered mental status type: disorientation Qualified Code(s): R41.0 - Disorientation, unspecified
--- NOTE | 2024-08-22 14:03 | Hospitalist Progress Note ---
Date of Service August 22, 2024 Assessment & Plan (1) Altered mental status: (2) Acute urinary retention: (3) L3 vertebral fracture: (4) Acute UTI (urinary tract infection): (5) Type 2 diabetes mellitus: Plan This is an 88-year-old female with past medical history of seizure disorder, hiatal hernia, type 2 diabetes, anemia who presented to the ED from [place] [facility] on 08/21/2024 for acute mental status. #Altered mental status: Etiology: Likely related to infectious process, urinary retention, ?withdraw from anti-seizure medications as these were not being given at [facility] for an unknown period of time. CBC without leukocytosis BMP with hyponatremia of 131 (appears within baseline), BUN/creatinine within normal limits Magnesium decreased at 1.6repleted in the ED Troponin negative x 2 TSH WNL Urinalysis negative Respiratory BioFire negative Chest x-ray negative Head CT negative KUB: mildy improved ileus, low grade partial obstruction considered. Keppra and Phenytoin levels pending. Given mental status, patient unable to take medications orally. Continue Keppra and phenytoin to IV until mental status improves Neurology saw and examined the patient - does not believe this is seizure activity or post-ictal state CTAP w/ IV unremarkable #Acute urinary retention: Recently diagnosed w/ UTI on Keflex outpatient. In ED patient seen to be retaining 750cc of urine. UC 08/19 mixed carlton, no repeats pending given negative urinalysis. s/p Arnold catheter placement. Keflex transitioned to IV Rocephin inpatient, plan to continue. #L3 vertebral fracture: recently diagnosed w/ acute L3 vertebral fracture in ED on 08/19 Lidocaine patch Calcitonin spray daily - added due to hx of osteoporosis. Tylenol prn Consider ortho spine consultation if pain persists - patient given information to follow up outpatient on 08/19. #Type 2 diabetes mellitus: on metformin BID outpatient. BG 118 on admission SSI 110-140mg/dL w/ CF of 15, no carb ratio adjust as needed. A1c 6.1 #Acute UTI (urinary tract infection): see plan #2 Plan Plan to hold PO outpatient medications until mental status improves. DVT prophylaxis: Lovenox Disposition: med/tele Daughters updated at bedside 08/21 Case was discussed with Dr. Pickens at time of admission. Admission and Anticipated Discharge Date Admission Date: August 21, 2024 Supervising Physician Co-Signing Physician Notes I personally examined the patient and verified villarreal points of history and exam, discussed case, and agree with decision making and plan documented by Dr. Villatoro. Patient evaluated by neurology and remains on seizure precautions. Mental status improving. Urine culture 08/19/24 high counts mixed growth, remains on ceftriaxone. Arnold in, will need TOV. Subjective Patient seen and evaluated at bedside this morning. No acute events overnight. Pt able to answer questions with simple one word answers this morning. Remains unable to participate in full conversations. Seen again later in the day. Patient was much more alert. 2 daughters were at bedside and state that patient was greatly improved from yesterday. Neurology saw the patient this morning and does not think this represents seizure activity, more likely metabolic/infectious etiology for her AMS. Patient does not verbalize any complaints or concerns. Review of Systems Review of Systems: reviewed, per HPI Physical Exam 2 Physical Exam: Constitutional: ill-appearing, no acute distress HEENT: NCAT, no conjunctival injection CV: extremities well-perfused, no LE edema Resp: no increased work of breathing GI: nondistended MSK: no gross deformities appreciated Skin: warm, dry, no rash appreciated Neuro: alert, confused, now participating in some degree of conversation which is appropriate. Results & Data Results & Data Vital Signs (Past 12 Hours) Vital Signs Temp Pulse Pulse Resp BP Pulse Ox O2 Del Method 08/22/24 10:44 36.7 C 102 H 19 160/77 H 91 Room Air 08/22/24 07:50 36.5 C 96 H 20 151/80 H 94 Room Air 08/22/24 07:46 97 H 08/22/24 03:01 94 H 19 95 Room Air 08/22/24 02:38 36.7 C 93 H 16 152/77 H 91 Room Air Resident Activity Tracking Resident Involvement: Resident Care Provided Care Provided: Adult Hospital Medicine (1) Altered mental status Altered mental status type: disorientation Qualified Code(s): R41.0 - Disorientation, unspecified
[2024-08-22] MEDS: cefTRIAXone SODIUM 2,000 MG/50 ML BAG IV SCH (18:10)
--- NOTE | 2024-08-23 00:14 | XRay Report ---
Exam(s): XR RIGHT WRIST EXAM: XR Right Wrist Complete, 3 or More Views CLINICAL HISTORY: wrist swelling, point tenderness, pain with movement. TECHNIQUE: Frontal, lateral and oblique views of the right wrist. COMPARISON: No relevant prior studies available. FINDINGS: Bones/joints: Diffuse osteopenia. No definite acute osseous abnormality. Moderately severe degenerative changes of the radiocarpal joint with chondrocalcinosis of the triangular fibrocartilage. Severe degenerative changes of the lateral intercarpal row with degenerative changes of the first carpometacarpal joint, the first metacarpal phalangeal joint and the interphalangeal joint. No dislocation. Soft tissues: Mild soft tissue prominence involving the distal forearm and wrist. No radiopaque foreign body or subcutaneous emphysema. Vasculature: Regional arterial calcification involving the distal forearm and wrist. IMPRESSION: Diffuse osteopenia. No definite acute osseous abnormality. Moderately severe degenerative changes of the wrist and the first digit. Electronically signed by: Alejandro Gutierrez MD 08/23/24 00:13 AM
--- NOTE | 2024-08-23 07:02 | Hospitalist Progress Note ---
Date of Service August 23, 2024 Assessment & Plan (1) Altered mental status: (2) Acute urinary retention: (3) L3 vertebral fracture: (4) Acute UTI (urinary tract infection): (5) Type 2 diabetes mellitus: Plan This is an 88-year-old female with past medical history of seizure disorder, hiatal hernia, type 2 diabetes, anemia who presented to the ED from [place] [facility] on 08/21/2024 for acute mental status. #Altered mental status, Metabolic Encephalopathy: Etiology: Likely related to infectious process, urinary retention, ?withdraw from anti-seizure medications as these were not being given at [facility] for an unknown period of time. Lab work up unremarkable UA 08/19 consistent with UTI - Urinalysis on admission negative, though this was after 2-3 days on Keflex Respiratory BioFire negative Chest x-ray negative Head CT negative KUB: mildly improved ileus, low grade partial obstruction considered. Keppra and Phenytoin levels pending. Improving mental status - PO meds resumed Neurology saw and examined the patient - does not believe this is seizure activity or post-ictal state CTAP w/ contrast unremarkable #Acute urinary retention: Patient seen to be retaining 750cc of urine on initial presentation UA 08/19 consistent with UTI - Urinalysis on admission negative, though this was after 2-3 days on Keflex UCx 08/19 mixed carlton Arnold removed for spontaneous voiding trial + PVR Continue IV Ceftriaxone - treating as complicated UTI #L3 vertebral fracture: Acute L3 vertebral fracture noted in ED on 08/19 Lidocaine patch Calcitonin spray daily - added due to hx of osteoporosis. Tylenol prn Consider ortho spine consultation if pain persists - patient given information to follow up outpatient if needed. #Type 2 diabetes mellitus: SSI 110-140mg/dL w/ CF of 15, no carb ratio A1c 6.1 Hold home Metformin #Acute UTI (urinary tract infection), complicated: see plan #2 Plan DVT prophylaxis: Lovenox Disposition: med/tele Admission and Anticipated Discharge Date Admission Date: August 21, 2024 Supervising Physician Co-Signing Physician Notes I personally examined the patient and verified all villarreal points of history and exam, discussed case, and agree with decision making with Dr Decker Main complaint is right hand swelling. Nursing notes that it looks far better than earlier. Patient pleasantly confused and hard to really get much of a meaningful HPI review of systems from otherwise. Vitals noted, in general she is awake and alert pleasant no distress pleasantly confused. Right hand somewhat swollen mildly tender apparently far better than a few hours ago no crepitus skin is pink. Breathing unlabored no accessory muscle use good effort. Delirium/metabolic encephalopathylikely due to UTI plus or minus pain from L3 fracture. Seems to be improving UTI/subsequent urinary retentioncontinue antibiotics. Voiding trial. L3 fracture denies pain today. Continue to follow. IV infiltrate of right armappears to be improving. Continue to follow. Elevation. DVT prophylaxisLovenox Subjective Patient seen and evaluated at bedside this morning. Peripheral IV infiltrated this AM, pt reports marked RUE pain and swelling. Pt oriented to self but not place or time. Speech appears improved relative to previous progress notes, mild dysarthria d/t poor dentition. Speech clear. logical for the most part. Review of Systems Review of Systems: reviewed, per HPI Physical Exam Physical Exam: Constitutional: no acute distress HEENT: NCAT, no conjunctival injection CV: extremities well-perfused, no LE edema Resp: no increased work of breathing GI: nondistended MSK: no gross deformities Skin: RUE significantly larger/swollen compared to left, +TTP Neuro: AOx1, speech primarily linear/logical, no focal deficits appreciated Results & Data Results & Data Vital Signs (Past 12 Hours) Vital Signs Temp Pulse Pulse Resp BP Pulse Ox O2 Del Method 08/23/24 03:46 37.4 C 103 H 18 161/74 H 94 Room Air 08/22/24 23:07 36.9 C 98 H 18 151/82 H 93 Room Air 08/22/24 21:57 98 H 08/22/24 20:09 37.1 C 93 H 18 155/95 H 93 Room Air Resident Activity Tracking Resident Involvement: Resident Care Provided Care Provided: Adult Hospital Medicine (1) Altered mental status Altered mental status type: disorientation Qualified Code(s): R41.0 - Disorientation, unspecified
[2024-08-23] MEDS: PHENYTOIN 150 MG in SYRINGE 0 ML IV SCH (08:41)
--- NOTE | 2024-08-23 10:29 | Neurology Progress Note ---
Date of Service August 23, 2024 Assessment & Plan (1) Acute encephalopathy: (2) Seizure disorder: (3) Acute UTI (urinary tract infection): Plan Patient has a longstanding history of seizure disorder, well-controlled on phenytoin and levetiracetam. She was admitted to the hospital August 21 with acute encephalopathy and was discovered to have a urinary tract infection. This was treated with ceftriaxone IV. Phenytoin and levetiracetam levels from admission are still pending. Nursing reports no seizure activity since admission. Patient had acute encephalopathy on admission likely from urinary tract infection. This is markedly improved. She is swallowing well. IV Dilantin can be caustic to veins and she has infiltration and swelling in the distal right hand. Recommendations: 1. Convert anticonvulsants to p.o. 2. Continue phenytoin 150 mg twice daily 3. Continue levetiracetam 1000 mg twice daily 4. Increase activity as able 5. I see no need for additional neurologic testing at this time (no need for EEG or MRI) 6. Follow-up with Edelmira Padilla PA-C (or other neurology PA) 2 to 3 weeks after discharge Overall, I spent a total of 35 minutes with this case including review of records, direct evaluation of the patient at bedside, report generation, and discussion of the case with the patient and RN at bedside, and Dr. Decker including differential diagnosis and treatment options. Admission and Anticipated Discharge Date Admission Date: August 21, 2024 Subjective Patient is feeling much better today and has no complaint of pain, headache, dizziness, vision problems, weakness, or numbness of the new nature. Nursing reports that she is much better and able to follow commands, and converse, and take p.o. well this morning. Blood pressure is 127/78 with a pulse of 105. She is afebrile 37.0. Right wrist x-ray showed no fracture. Nursing reports that her right arm IV infiltrated with the Dilantin at the last dose. She now has a deeper IV in in the left arm. Results & Data Vital Signs (Past 12 Hours) Vital Signs Temp Pulse Resp BP Pulse Ox O2 Del Method 08/23/24 07:31 37.0 C 105 H 17 157/78 H 90 Room Air 08/23/24 03:46 37.4 C 103 H 18 161/74 H 94 Room Air 08/22/24 23:07 36.9 C 98 H 18 151/82 H 93 Room Air Exam (Neuro) Physical Exam: Patient is awake and alert. Speech is easy to understand although she is slightly dysarthric. There is no aphasia. Extraocular eye muscles are intact without nystagmus. There is no facial droop. Tongue is midline. She knew her name and her age but not the month, year, or date/day (still remembers July 2024). She knows she lives in [facility] Coordination is normal in the hands without tremor or ataxia. Motor strength is essentially normal and symmetrical for age in all 4 limbs PG Care Time/CCT Total # of Minutes Spent Total Time Spent with Patient: Total time spent is greater than 50% in coordination of care (as documented) at patient's floor/unit and/or counseling patient: Coding Level of Care Code 61784 SUB INP/OBS CARE 2/35MIN Diagnoses Acute encephalopathy G93.40 Seizure disorder G40.909 Acute UTI (urinary tract infection) N39.0 Time Spent (min) 35
[2024-08-23] MEDS: ACETAMINOPHEN 1,000 MG/100 ML VIAL IV PRN (16:36)
--- NOTE | 2024-08-23 18:03 | Billing Data ---
Date of Service August 23, 2024 Coding Level of Care Code 40831 SUB INP/OBS CARE MIN
[2024-08-23] MEDS: levETIRAcetam 500 MG TAB PO SCH (20:16)
[2024-08-23] MEDS: PHENYTOIN SODIUM ER 30 MG CAP PO SCH (20:16)
--- NOTE | 2024-08-24 06:38 | Electrocardiogram Report ---
Test Reason : Blood Pressure : */* mmHG Vent. Rate : 99 BPM Atrial Rate : 99 BPM P-R Int : 132 ms QRS Dur : 84 ms QT Int : 366 ms P-R-T Axes : 72 -12 234 degrees QTcB Int : 469 ms Normal sinus rhythm Nonspecific ST and T wave abnormality Abnormal ECG When compared with ECG of 09-Jul-2023 20:31, PA interval has increased Nonspecific T wave abnormality, worse in Anterior leads Confirmed by Primo Pretty ([id number]) on 08/24/2024 6:37:47 AM Referred By: [facility] Confirmed By: Primo Pretty
--- NOTE | 2024-08-24 08:05 | Hospitalist Progress Note ---
Date of Service August 24, 2024 Assessment & Plan (1) Altered mental status: (2) Acute urinary retention: (3) L3 vertebral fracture: (4) Acute UTI (urinary tract infection): (5) Type 2 diabetes mellitus: Plan This is an 88-year-old female with past medical history of seizure disorder, hiatal hernia, type 2 diabetes, anemia who presented to the ED from [facility] on 08/21/2024 for acute mental status. #Altered mental status, Metabolic Encephalopathy: Etiology: Likely related to infectious process, urinary retention, ?withdraw from anti-seizure medications as these were not being given at [facility] for an unknown period of time. Lab work up unremarkable UA 08/19 consistent with UTI - Urinalysis on admission negative, though this was after 2-3 days on Keflex Respiratory BioFire negative Chest x-ray negative Head CT negative KUB: mildly improved ileus, low grade partial obstruction considered. Keppra and Phenytoin levels pending. Improving mental status - PO meds resumed Neurology saw and examined the patient - does not believe this is seizure activity or post-ictal state CTAP w/ contrast unremarkable #Acute urinary retention: Patient seen to be retaining 750cc of urine on initial presentation UA 08/19 consistent with UTI - Urinalysis on admission negative, though this was after 2-3 days on Keflex UCx 08/19 mixed carlton Arnold removed for spontaneous voiding trial + PVR Continue IV Ceftriaxone - treating as complicated UTI #L3 vertebral fracture: Acute L3 vertebral fracture noted in ED on 08/19 Lidocaine patch Calcitonin spray daily - added due to hx of osteoporosis. Tylenol prn Consider ortho spine consultation if pain persists - patient given information to follow up outpatient if needed. #Type 2 diabetes mellitus: SSI 110-140mg/dL w/ CF of 15, no carb ratio A1c 6.1 Hold home Metformin #Acute UTI (urinary tract infection), complicated: see plan #2 Plan DVT prophylaxis: Lovenox Disposition: med/tele Admission and Anticipated Discharge Date Admission Date: August 21, 2024 Subjective Patient seen and evaluated at bedside this morning. Peripheral IV infiltrated this AM, pt reports marked RUE pain and swelling. Pt oriented to self but not place or time. Speech appears improved relative to previous progress notes, mild dysarthria d/t poor dentition. Speech clear. logical for the most part. Review of Systems Review of Systems: reviewed, per HPI Physical Exam Physical Exam: Constitutional: no acute distress HEENT: NCAT, no conjunctival injection CV: extremities well-perfused, no LE edema Resp: no increased work of breathing GI: nondistended MSK: no gross deformities Skin: RUE significantly larger/swollen compared to left, +TTP Neuro: AOx1, speech primarily linear/logical, no focal deficits appreciated Results & Data Results & Data Vital Signs (Past 12 Hours) Vital Signs Temp Pulse Pulse Resp BP Pulse Ox O2 Del Method 08/24/24 07:52 36.6 C 77 18 145/76 H 95 Room Air 08/24/24 07:51 36.7 C 60 16 108/84 97 Room Air 08/24/24 07:18 97 H 08/24/24 02:40 36.5 C 86 18 155/95 H 94 Room Air 08/23/24 22:54 36.5 C 95 H 18 156/74 H 93 Room Air 08/23/24 21:42 93 H (1) Altered mental status Altered mental status type: disorientation Qualified Code(s): R41.0 - Disorientation, unspecified
[2024-08-24 11:42] VITALS: PULSE 87; RESP 20; TEMP 98.2; O2SAT 96
--- NOTE | 2024-08-24 12:21 | Discharge Summary ---
Date of Service August 24, 2024 Admission HPI Per Admitting Provider This is an 88-year-old female with past medical history of seizure disorder, hiatal hernia, type 2 diabetes, anemia who presented to the ED from [facility] on 08/21/2024 for acute mental status. While in the emergency department, patient underwent chest x-ray that was negative, head CT negative. Respiratory BioFire negative. Urinalysis negative. Magnesium mildly low at 1.6 which was repleted. Remainder of lab work appears stable with previous. The patient was seen and examined at bedside. Patient's daughters were present at time of encounter. Patient was able to provide no history. She was nonverbal. Patient's daughters note that this is very off from her baseline. She states that she is normally alert and oriented and able to converse in a normal conversation. She states that the patient presented to the emergency department on 08/19 for lower back pain and bilateral flank pain. She was diagnosed with an acute L3 fracture and a UTI. She was sent home on Keflex. She also had a CAT scan at that time that did reveal a nonspecific ileus. Patient's daughter states that patient was incontinent of her bowels prior to EMS picking her up. They state that the altered mental status began yesterday on 08/20. She states that after she was in the emergency department she did miss at least 1 dose of her seizure medications. The 1 daughter states that she went to visit her this morning and the patient started to mildly twitch at bedside. Patient's family reports that this has happened in the past prior to the patient experiencing a grand mal seizure. She does follow routinely outpatient with Dr. Montero for this and is on Keppra 1000 mg twice daily and phenytoin 150 mg twice daily. Admission Exam Per Admitting Provider Constitutional: WD/WN, vitals as above Eyes: PERRL, conjunctivae normal, anicteric sclerae Respiratory: normal respiratory effort, lungs clear to auscultation Cardiovascular: RRR, no murmur, no edema Gastrointestinal (Abdomen): grimace to palpation of abdomen. soft. +BS. Neurologic: awake, non verbal. moving extremities. Principal Diagnosis AMS Discharge Exam Constitutional: no acute distress HEENT: NCAT, no conjunctival injection CV: extremities well-perfused, no LE edema Resp: no increased work of breathing GI: nondistended MSK: no gross deformities Skin: right hand swelling partially improved, still TTP Neuro: alert, oriented, no focal neurologic deficit appreciated Discharge Data Allergies Allergy/AdvReac Type Severity Reaction Status Date / Time levofloxacin [From Levaquin] Allergy Severe Possible Verified 04/26/24 08:40 seizure peanut Allergy Intermediate SNEEZE, Verified 04/26/24 08:40 COUGH allopurinol [From Zyloprim] Allergy Unknown ON CENTRE Verified 04/26/24 08:40 CARE MED LIST lorazepam Allergy Unknown ON CENTRE Verified 04/26/24 08:40 CARE MED LIST nortriptyline Allergy Unknown ON CENTRE Verified 04/26/24 08:40 CARE MED LIST Opioids - Morphine Analogues Allergy Unknown ON CENTRE Verified 04/26/24 08:40 CARE MED LIST Penicillins Allergy Unknown ON CENTRE Verified 04/26/24 08:40 CARE MED LIST Sulfa (Sulfonamide Allergy Unknown ON CENTRE Verified 04/26/24 08:40 Antibiotics) CARE MED LIST risedronate sodium AdvReac Intermediate Intolerence Verified 04/26/24 08:40 [From Actonel] Consultations 08/21/24 16:40 ED Decision to Admit Stat 08/21/24 16:54 Consult Neurology Routine Ordered Studies 08/21/24 15:10 CT head/brain wo con Stat 08/21/24 17:40 CT Abd and Pelvis [CT abd pelvis IV con only] Stat Hospital Course (1) Altered mental status: (2) Acute urinary retention: (3) L3 vertebral fracture: (4) Acute UTI (urinary tract infection): (5) Type 2 diabetes mellitus: Plan This is an 88-year-old female with past medical history of seizure disorder, hiatal hernia, type 2 diabetes, anemia who presented to the ED from [facility] on 08/21/2024 for AMS: #Altered mental status, Metabolic Encephalopathy - Resolved: Etiology: Likely related to infectious process, urinary retention Lab work up unremarkable UA 08/19 consistent with UTI - Urinalysis on admission negative, though this was after 2-3 days on Keflex Respiratory BioFire negative Chest x-ray negative Head CT negative Keppra and Phenytoin levels pending - follow results in outpatient setting Neurology saw and examined the patient - does not believe this was related to seizure activity or post-ictal state #UTI, complicated, Acute urinary retention: Patient seen to be retaining 750cc of urine on initial presentation, spontaneously voided just before discharge - continue to monitor for retention, straight cath PRN UA 08/19 consistent with UTI - Urinalysis on admission negative, though this was after 2-3 days on Keflex UCx 08/19 mixed carlton Treating as complicated UTI - complete abx course with Cefpodoxime 200mg BID x5 more days for total duration of 10 days #L3 vertebral fracture: Acute L3 vertebral fracture noted in ED on 08/19 Lidocaine patch Tylenol prn Consider ortho spine consultation if pain persists or if impacting mobility/functional status - patient given information to follow up outpatient if needed. #Type 2 diabetes mellitus: Resume home Metformin Total Time Total Time Spent Total Time Spent (In Minutes): <30 Discharge Plan Discharge Items Patient Disposition: Transfer [facility] Reason For Visit: AMS Discharge Diagnosis: Metabolic Encephalopathy Condition on Discharge: Fair Activity: As commented below Activity Comment: activity progression as tolerated/as directed by PT/OT Non-emergency contact: Primary Care Provider Call non-emergency contact if: you have any medication questions and your pain is worsening Follow-up/Referrals: Darrell Weiss III, MD [Primary Care Provider] - Diet: Carb Consistent or DM2 Addtl Attending Provider Instructions: This is an 88-year-old female with past medical history of seizure disorder, hiatal hernia, type 2 diabetes, anemia who presented to the ED from [facility] on 08/21/2024 for AMS: #Altered mental status, Metabolic Encephalopathy - Resolved: Etiology: Likely related to infectious process, urinary retention Lab work up unremarkable UA 08/19 consistent with UTI - Urinalysis on admission negative, though this was after 2-3 days on Keflex Respiratory BioFire negative Chest x-ray negative Head CT negative Keppra and Phenytoin levels pending - follow results in outpatient setting Neurology saw and examined the patient - does not believe this was related to seizure activity or post-ictal state #UTI, complicated, Acute urinary retention: Patient seen to be retaining 750cc of urine on initial presentation, failed spontaneous voiding trial 08/24 - continue to straight cath Q6H PRN upon arrival to [facility] until return of spontaneous voiding UA 08/19 consistent with UTI - Urinalysis on admission negative, though this was after 2-3 days on Keflex UCx 08/19 mixed carlton Treating as complicated UTI - complete abx course with Cefpodoxime 200mg BID x5 more days for total duration of 10 days #L3 vertebral fracture: Acute L3 vertebral fracture noted in ED on 08/19 Lidocaine patch Tylenol prn Consider ortho spine consultation if pain persists or if impacting mobility/functional status - patient given information to follow up outpatient if needed. #Type 2 diabetes mellitus: Resume home Metformin Pending Studies at Discharge: Yes Studies:: anticonvulsant levels Stand-Alone Forms: My [facility] Skilled Items Patient informed of condition?: Yes DNR: Yes Discharge Level of Care: Skilled Communicable Disease: No Discharge Prognosis: Improving Lines: None Urinary Catheter: No Medications and DC Order Prescriptions: New cefpodoxime 200 mg tablet 200 mg PO BID 5 Days Qty: 10 0RF Rx Instructions: must administer with a meal/food Continued sodium chloride 1,000 mg Tablet,Soluble 1,000 mg PO AMHS diclofenac sodium [Voltaren Arthritis Pain] 1 % gel 2 g topical QID Rx Instructions: APPLY 2 GM. TO POSTERIOR NECK, RIGHT SHOULDER. APPLY 2 GR TO LEFT KNEE. metformin 500 mg tablet 500 mg PO BIDM acetaminophen 325 mg tablet 650 mg PO Q6H MDD 3 GRAMS APAP/24 HOURS PRN (Reason: FEVER/PAIN) levothyroxine 25 mcg tablet 25 mcg PO DAILYBB cyanocobalamin (vitamin B-12) 1,000 mcg capsule 1,000 mcg PO QAM famotidine 40 mg tablet 40 mg PO Q12 magnesium oxide 400 mg (241.3 mg magnesium) tablet 400 mg PO AMHS levetiracetam 1,000 mg tablet 1,000 mg PO AMHS omeprazole 20 mg Tablet,Delayed Release (Dr/Ec) 40 mg PO QAM ondansetron 4 mg Tablet,Disintegrating 4 mg PO Q6H PRN (Reason: Nausea / Vomiting) phenytoin sodium extended 30 mg capsule 150 mg PO AMHS Reyvow 50 mg Tablet 50 mg PO DAILY PRN (Reason: Migraine Headache) lidocaine 4 % Adhesive Patch,Medicated 1 patch TOPICAL UD Rx Instructions: APPLY TO MOST PAINFULL AREA LUMBAR EVERY DAY AND EVENING SHIFT FOR BACK PAIN FOR 14 DAYS...APPLY IN AM REMOVE IN PM eucalyptus-menthol Lozenge 1 letitia MUCOUS MEMBRANE .EVERY 1 HOUR PRN (Reason: Cough) atorvastatin 20 mg tablet 20 mg PO HS Artificial Tears (cmc) 1 % Drops 2 drp OPB Q8 PRN (Reason: Dry Eyes) Discontinued nitrofurantoin monohyd/m-cryst 100 mg capsule 100 mg PO AMHS Rx Instructions: START 08/20/2024 TAKE FOR 7 DAYS Discharge Orders: Discharge Order (Routine); Ordered 08/24/24 Ordered By: Homer Decker Admission Data Admit Date/Time: 08/21/24 16:54 Attending Provider: Sandip Adan Admit Provider: Jonathan Pickens Primary Care Provider: Darrell Weiss III Other Providers: Jonathan Pickens; Reji Montero; [place],[facility] Other Interventions: Discharge Summary Assessment (RN) Last Done: 08/24/24 12:46 Supervising Physician Co-Signing Physician Notes I personally examined the patient and verified all villarreal points of history and exam, discussed case, and agree with decision making with Dr Decker Hand swelling improving. No other new problems identified. Vitals noted, in general she is awake and alert pleasant no distress pleasantly confused. Right hand somewhat swollen minimally tender and less than yesterday. No warmth. Breathing unlabored no accessory muscle use good effort. Delirium/metabolic encephalopathylikely due to UTI plus or minus pain from L3 fracture. Seems to be improving UTI/subsequent urinary retentioncontinue antibiotics. still needed straight cath for about 400 mL of urinebut given that urinary retention is likely due to UTIanticipate this to continue to improve. Safe for return to skilledwould prefer to leave indwelling catheter out to reduce infection risk, but obviously will need a straight cath roughly 4 times daily as needed urinary retention until the problem resolves. L3 fracture denies pain today. Continue to follow. IV infiltrate of right armappears to be improving. Continue to follow. Elevation. DVT prophylaxisLovenox during her stay Resident Activity Tracking Resident Involvement: Resident Care Provided Care Provided: Adult Hospital Medicine
[2024-08-24 12:46] VITALS: BP 158/96
--- NOTE | 2024-08-24 17:42 | Billing Data ---
Date of Service August 24, 2024 Coding Level of Care Code 20850 IN/OBS DISCH 30 MIN/LESS
== END 2024-08-24 14:31 | DRG 689 ==
LOC: ED 14:03 → 2E 16:54 → SUATTDRO 16:54 → 2E 17:27